=== PATIENT | male | born 1980 | race Caucasian/White ===

== ENCOUNTER 2020-10-06 09:26 | Emergency (ER) | payer MEDICAID, SELFPAY ==
--- NOTE | ~2020-10-06 | XR_ITS ---
EXAMINATION: XR CHEST CLINICAL INFORMATION: Seizure with SOB. COMPARISON: None TECHNIQUE: Frontal view of the chest was obtained. FINDINGS: The lungs are well-expanded and clear. The heart size and pulmonary vascularity is normal. No gross bony abnormality seen. XR/XR chest 1V IMPRESSION: Unremarkable chest exam.
--- NOTE | ~2020-10-06 | CT_ITS ---
EXAMINATION: CT HEAD W/O IV CONTRAST CT CERVICAL SPINE W/O IV CONTRAST CLINICAL INFORMATION: 40-year-old male with seizure. COMPARISON: Head CT from 09/08/2009 TECHNIQUE: Head - Contiguous axial imaging of the head was performed from the skull base to the vertex without the administration of intravenous contrast, and axial images are reconstructed at 0.625 mm, 2.5 mm and 5 mm slice thickness. Cervical spine - A volumetric, helical CT acquisition of the cervical spine was obtained without contrast; in addition to the standard set of axial images, multiplanar reformatted images were provided in the coronal and sagittal imaging planes. This CT examination was performed using dose optimization techniques as appropriate, variously including the following: *Automated exposure control *Adjustment of mA and/or kV according to patient size (this includes techniques or standardized protocols for targeted exams where dose is matched to indication/reason for exam; i.e. extremities or head) *Use of iterative reconstruction technique DLP: 1446 mGy-cm (total) FINDINGS: HEAD: The brain parenchyma has normal attenuation. No evidence of intracranial hemorrhage, major vascular territory infarction, focal mass effect or midline shift. Luke to white matter differentiation is preserved. The ventricles have normal size and configuration. 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 The ventricles have normal size and configuration. No hydrocephalus. The calvarium is intact. Mastoid air cells and middle ear cavities are well aerated. No air-fluid levels within paranasal sinuses. Secretions within some of the ethmoid air cells. Also, mild mucosal thickening of the inferior right maxillary sinus. The orbits, globes and temporomandibular joints are unremarkable. CERVICAL SPINE: No acute abnormalities. The craniocervical junction is normal. The occipital condyles, dens and atlantodental articulation are intact. The vertebral body heights and alignment are maintained. No acute fractures in the anterior or posterior elements. No prevertebral soft tissue swelling. There is a congenital or remote traumatic defect in the right sided C2 spinous process. The disc spaces are preserved. Mild left-sided facet hypertrophy at C2-C3 and C3-C4. No evidence of stenosis of the central spinal canal or neural foramina. No spinal hematoma or focal fluid collection in the visualized neck. The examined lung apices are clear. Thyroid gland is normal. CT/CT cervical spine wo con IMPRESSION: * No mass, hemorrhage or other acute intracranial pathology. * No fracture or malalignment in the cervical spine.
[2020-10-06 09:33] VITALS: BP 133/71; BP 146/90; PULSE 76; PULSE 82; RESP 18; TEMP 37.1; O2SAT 97; BMI 34.4
--- NOTE | 2020-10-06 10:05 | ECG_ITS ---
Test Reason : AMS Blood Pressure : / mmHG Vent. Rate : 071 BPM Atrial Rate : 071 BPM P-R Int : 190 ms QRS Dur : 098 ms QT Int : 382 ms P-R-T Axes : 020 007 026 degrees QTc Int : 415 ms Normal sinus rhythm Normal ECG When compared with ECG of 11-JUN-2011 10:03, TX interval has decreased Referred By: Majo Esparza Electronically Signed By:BLAS CARPIO
[2020-10-06 11:42] LABS: MANUAL DIFF FLAG NO
[2020-10-06 11:48] LABS: Basophils Percent Auto 0.2 % (0-2); Eosinophils Absolute Auto 0.1 X10*3/uL (0.0-0.4); Eosinophils Percent Auto 0.8 % (0-4); Hematocrit 40.6 % (42-52); Hemoglobin 13.3 g/dl (14.0-18.0); Imm Gran Abs Auto 0.02 X10*3/uL (0.00-0.03); Imm Gran Pct Auto 0.3 % (0.0-0.4); Lymphocytes Absolute Auto 0.9 X10*3/uL (1.2-4.9); Lymphocytes Percent Auto 13.7 % (20-40); Mean Corpuscular HGB Conc 32.8 g/dl (31.0-36.0); Mean Corpuscular Hemoglobin 30.2 pg (27.0-33.0); Mean Corpuscular Volume 92.1 fL (80-98); Mean Platelet Volume 10.1 fL (9.4-12.4); Monocytes Absolute Auto 0.4 X10*3/uL (0.1-1.2); Monocytes Percent Auto 5.6 % (2-11); Neutrophils Percent Auto 79.4 % (45-73); Platelet Count 223 X10*3/uL (160-400); Red Blood Count 4.41 X10*6/uL (4.60-5.80); Red Cell Distribution Width 13.1 % (11.0-16.0); White Blood Count 6.3 X10*3/uL (4.8-10.8)
--- NOTE | 2020-10-06 11:55 | ED.SEIZURE ---
HPI - Seizure General Chief Complaint: Seizure Stated Complaint: ? SZ,GIVEN 2MG ATIVAN, THEN AMS Time Seen by Provider: 10/06/20 09:43 Source: patient, EMS and RN notes reviewed ([facility] Staff) Mode of arrival: EMS Limitations: no limitations History of Present Illness HPI Narrative: 40-year-old male with a past medical history of COPD, alcohol dependence, bipolar disorder and epileptic seizures currently on Keppra 2000 mg b.i.d., magnesium oxide 400 mg daily, Lamictal 300 mg b.i.d. and phenytoin 200 mg b.i.d. who is currently at [facility] due to SI attempt with plan to cut his right wrist presenting to the ED via EMS after he had 2 witnessed seizures 1 at [facility] and then another via EMS. He reports the 1 that occurred at [facility] he was sitting in the chair and he does not believe he fell and hit his head. EMS reports staff at [facility] gave 2 mg of Ativan p.o. and attempt to avoid the seizure although 50 minutes later patient had a seizure. At that point he received another 2 mg of IM Ativan and then was sent here for further evaluation and treatment. Vital signs are stable within normal limits although EMS placed him on capnography with reading of 42. Patient reports he is taking all his medications including his for seizure medications as prescribed. Patient denies any headaches, dizziness, confusion, changes in vision, nausea/vomiting, cough, sore throat, chest pain, shortness of breath, palpitations, abdominal pain, diarrhea, dysuria, hematuria, any weakness, SI/HI/auditory visual hallucinations or thoughts of self injury at this time. MD complaint: seizure Onset (ago): minute(s) (Prior to arrival) Description of Episode: loss of consciousness and tonic-clonic movement -: second(s) Witnessed: Yes - by Other ([facility] staff) Trauma: No Seizure History: Yes Place: [facility] inpatient psych/detox Possible Precipitating Event: stress (From being inpatient psych for SI) Associated symptoms: denies other symptoms Treatments prior to arrival: benzodiazepines (4 mg total of Ativan) Related Data Allergies Allergy/AdvReac Type Severity Reaction Status Date / Time erythromycin base Allergy Unknown UNKNOWN Unverified 11/23/19 14:39 [Erythromycin Base] Review of Systems Review of Systems: Constitutional : No Fever, No Chills, No Night Sweats, No Fatigue, No Malaise ENT/Mouth : No Ear Pain, No Nasal Congestion, No Sinus Pain, No sore throat, No Rhinorrhea Eyes: No Eye Pain, No Swelling, No Redness, No Foreign Body, No Discharge, No Vision Changes Cardiovascular : No Chest Pain, No SOB, No Dyspnea on Exertion, No Orthopnea, No Palpitations Respiratory : No Cough, No Sputum, No Wheezing, No Dyspnea Gastrointestinal : No Nausea, No Vomiting, No Diarrhea, No Constipation, No abdominal Pain, No Hematochezia, No Melena Genitourinary : No Dysuria, No Urinary Frequency, No Urinary Incontinence, No Urgency, No Flank Pain Musculoskeletal : No joint pain, No Myalgias Skin : No lacerations Neuro : Positive seizure, positive loss of consciousness, No Focal weakness, no general weakness, No Numbness, No Paresthesias, No Dizziness, No Headache Yes all other systems are reviewed and are negative [facility] Past Medical History Attestation statement: The following information was validated with the patient. Social History Social History Patient Tobacco Use Status: Current everyday Tobacco user Use of substances other than those prescribed or required for medical reasons: No Advance Directives: No Advance Directives Information Provided: No Suicidal Behavior: History of suicide attemps Current/Past Psychiatric Disorders: Chronic mental illess Access to Firearms: No Risk Factors Comment: Pt is an inpatient at [email or web address] for medical purposes r/t seizures. Physical Exam Vital Signs: Vital Signs: Last Vital Signs Temp 98.8 F 10/06/20 09:33 Pulse 69 10/06/20 12:50 Resp 18 10/06/20 12:50 BP 143/77 H 10/06/20 12:50 Pulse Ox 99 10/06/20 12:50 Body Mass Index 34.4 Vital signs have been reviewed as normal and appeared to be correct. Blood pressure normal. Heart rate normal. Respiration rate normal. Temperature normal. Oxygen saturation normal. Appearance: Alert. Oriented X3. No acute distress. Head: Normal external exam. Normocephalic. Atraumatic. Able to rotate head bilaterally. Eyes: PERRLA. EOMI. No nystagmus noted. Conjunctiva and sclera normal. Eyelids normal. Corneal reflex normal. ENT: EAC normal. TM's Normal. Hearing normal. Pharynx normal. Uvula midline. tongue midline. Moist mucous membranes. No trismus noted. No drooling noted. No muffled voice noted. No nystagmus noted. Neck: Normal inspection. Neck supple. FROM. No adenopathy. Trachea midline. Thyroid Normal. No meningeal signs. No neck mass noted. CVS: Normal heart rate and rhythm. Heart sound normal. No murmurs noted. Pulses normal throughout. Respiratory: No respiratory distress. Painless inspiration. Breath sounds normal. No wheezes/rales/rhonchi noted. Chest nontender. No accessory muscle usage noted or decreased air movement noted. Abdomen: Soft and nontender. Bowel sounds normal in all 4 quadrants. No distention noted. No organomegaly noted. No visible injury noted. Back: Full range of motion noted. Skin: Skin warm and dry. Normal skin color. Normal skin turgor. No rashes/lesions/lacerations noted. Extremities: No lower extremity edema. Extremities exhibit normal range of motion. Extremities nontender. Able to shrug shoulders bilaterally and keep up against resistance. Neuro: Oriented X 3. No motor deficit. No sensory deficit. Reflexes normal. Moving all extremities. No focal motor deficits. Cranial nerves II-XI intact bilaterally. Facial strength normal. Normal cognition. Speech normal. Strength 5/5 throughout. No pronator drift. No tremor noted. No fasciculations noted. No rigidity noted. Muscle tone normal throughout. No asterixis noted. Ttgqyq-eg-[id number] test normal. Heel to warren test normal. Hand drop from overhead Misses face. Course Course Course Narrative: 11:30am - 40-year-old male with a past medical history of COPD, alcohol dependence, bipolar disorder and epileptic seizures currently on Keppra 2000 mg b.i.d., magnesium oxide 400 mg daily, Lamictal 300 mg b.i.d. and phenytoin 200 mg b.i.d. who is currently at [facility] due to SI attempt with plan to cut his right wrist presenting to the ED via EMS after he had 2 witnessed seizures 1 at [facility] and then another via EMS. He reports the 1 that occurred at [facility] he was sitting in the chair and he does not believe he fell and hit his head. EMS reports staff at [facility] gave 2 mg of Ativan p.o. and attempt to avoid the seizure although 50 minutes later patient had a seizure. At that point he received another 2 mg of IM Ativan and then was sent here for further evaluation and treatment. - On exam patient is alert and oriented x3. Not in any acute distress. No signs of trauma. No focal neural deficits are noted. CV RRR. Lungs CTA. Abdomen is soft nontender. Plan: Labs including Keppra/Phenytoin/Lamictal and magnesium level, COVID/RSV/flu, CXR, CT scan of brain and cervical spine, placed the patient on seizure precautions give him a loading dose of Keppra of a 1000 mg IV and re-evaluate. Reevaluation(s) Reevaluation #1: - labs reviewed and patient with mild anemia. Carbon dioxide 31. Anion gap 10. BNP 128. Phenytoin 10.4. ETOH level negative. Lamictal and Keppra level still pending. Patient negative for COVID/RSV/flu. Chest x-ray of brain and cervical spine all within normal limits no acute processes are noted. - I consulted with Neurology and he reported that due to the phenytoin and on the lower side that he would also give a loading dose of 300 mg IV and he would not change the patient's Lamictal or Keppra levels he was sent back to the [facility] where he came from. Therefore explained to the patient and he understands agrees with this plan. I also spoke to the psychiatrist and he understands and agrees with this plan. Time: 14:19 [facility] - Seizure Medical Records Attestation: I reviewed the patient's medical records. Lab Data Attestation: I reviewed the patient's lab results. Result diagrams: 10/06/20 11:33 10/06/20 11:33 Labs: Lab Results 10/06/20 10/06/20 10/06/20 Range/Units 11:33 11:33 11:33 WBC 6.3 (4.8-10.8) X10*3/uL RBC 4.41 L (4.60-5.80) X10*6/uL Hgb 13.3 L (14.0-18.0) g/dl Hct 40.6 L (42-52) % MCV 92.1 (80-98) fL MCH 30.2 (27.0-33.0) pg MCHC 32.8 (31.0-36.0) g/dl RDW 13.1 (11.0-16.0) % Plt Count 223 (160-400) X10*3/uL MPV 10.1 (9.4-12.4) fL Immature Gran % (Auto) 0.3 (0.0-0.4) % Neut % (Auto) 79.4 H (45-73) % Lymph % (Auto) 13.7 L (20-40) % [place] % (Auto) 5.6 (2-11) % Eos % (Auto) 0.8 (0-4) % Baso % (Auto) 0.2 (0-2) % Lymph # (Auto) 0.9 L (1.2-4.9) X10*3/uL [place] # (Auto) 0.4 (0.1-1.2) X10*3/uL Eos # (Auto) 0.1 (0.0-0.4) X10*3/uL Baso # (Auto) 0.0 (0.0-0.2) X10*3/uL Abs Immat Gran (auto) 0.02 (0.00-0.03) X10*3/uL Absolute Neuts (auto) 5.0 (2.0-8.3) X10*3/uL Absolute Nucleated RBC 0.000 (0.0-0.012) X10*3/uL Nucleated RBC % (auto) 0.0 (0.0-0.2) /100WBC Sodium 140 (135-145) mmol/L Potassium 4.8 (3.3-5.1) mmol/L Chloride 104 (96-108) mmol/L Carbon Dioxide 31 H (22-29) mmol/L Anion Gap 10 L (12-20) BUN 15 (9-16) mg/dL Creatinine 0.78 (0.5-1.4) mg/dL Estim Creat Clear Calc 157.1 Estimated GFR > 60 Random Glucose 83 (60-115) mg/dL Calcium 9.1 (8.4-10.2) mg/dL Magnesium 2.1 (1.6-2.6) mg/dL Total Bilirubin 0.3 (0.0-1.0) mg/dL AST 17 (5-37) U/L ALT 19 (0-40) U/L Alkaline Phosphatase 106 (39-117) U/L Total Creatine Kinase 127 (38-174) U/L B-Natriuretic Peptide (<100) pg/mL Total Protein 6.7 (6.5-8.0) g/dL Albumin 3.7 (3.5-5.0) g/dL Phenytoin 10.4 (10.0-20.0) ug/mL Ethyl Alcohol mg/dL Coronavirus (PCR) (Negative) Influenza Type A (PCR) (Negative) Influenza Type B (PCR) (Negative) RSV RNA Qual (PCR) (Negative) 10/06/20 10/06/20 10/06/20 Range/Units 11:33 11:33 11:33 WBC (4.8-10.8) X10*3/uL RBC (4.60-5.80) X10*6/uL Hgb (14.0-18.0) g/dl Hct (42-52) % MCV (80-98) fL MCH (27.0-33.0) pg MCHC (31.0-36.0) g/dl RDW (11.0-16.0) % Plt Count (160-400) X10*3/uL MPV (9.4-12.4) fL Immature Gran % (Auto) (0.0-0.4) % Neut % (Auto) (45-73) % Lymph % (Auto) (20-40) % [place] % (Auto) (2-11) % Eos % (Auto) (0-4) % Baso % (Auto) (0-2) % Lymph # (Auto) (1.2-4.9) X10*3/uL [place] # (Auto) (0.1-1.2) X10*3/uL Eos # (Auto) (0.0-0.4) X10*3/uL Baso # (Auto) (0.0-0.2) X10*3/uL Abs Immat Gran (auto) (0.00-0.03) X10*3/uL Absolute Neuts (auto) (2.0-8.3) X10*3/uL Absolute Nucleated RBC (0.0-0.012) X10*3/uL Nucleated RBC % (auto) (0.0-0.2) /100WBC Sodium (135-145) mmol/L Potassium (3.3-5.1) mmol/L Chloride (96-108) mmol/L Carbon Dioxide (22-29) mmol/L Anion Gap (12-20) BUN (9-16) mg/dL Creatinine (0.5-1.4) mg/dL Estim Creat Clear Calc Estimated GFR Random Glucose (60-115) mg/dL Calcium (8.4-10.2) mg/dL Magnesium (1.6-2.6) mg/dL Total Bilirubin (0.0-1.0) mg/dL AST (5-37) U/L ALT (0-40) U/L Alkaline Phosphatase (39-117) U/L Total Creatine Kinase (38-174) U/L B-Natriuretic Peptide 128 H (<100) pg/mL Total Protein (6.5-8.0) g/dL Albumin (3.5-5.0) g/dL Phenytoin (10.0-20.0) ug/mL Ethyl Alcohol < 10 mg/dL Coronavirus (PCR) NEGATIVE (Negative) Influenza Type A (PCR) NEGATIVE (Negative) Influenza Type B (PCR) NEGATIVE (Negative) RSV RNA Qual (PCR) NEGATIVE (Negative) ECG Data Attestation: I personally reviewed and interpreted this ECG as follows: ECG interpretation date: 10/06/20 ECG interpretation time: 10:42 Interpretation: Normal sinus rhythm and a ventricular rate of 71 with a normal DC interval normal QRS duration normal QT/QTC interval. No acute ischemic changes are noted. No prior EKGs in our system to compare to at this time. Critical Care Time Critical Care Time Critical Care Time: Yes Total Critical Care Time: 60 Attestation: I personally attest to this time spent taking care of the patient Discharge Plan Discharge Clinical Impression: Epileptic seizure Patient Disposition: Home, Self-Care Instructions: Epilepsy (ED) Referrals: Elyssa Jackson MD [Physician] - 2 days [place],[facility] [Primary Care Provider] - 2 days Print Language: Mosotho
[2020-10-06 12:06] LABS: Ethanol < 10 mg/dL
[2020-10-06 12:10] LABS: Alanine Aminotransferase 19 U/L (0-40); Albumin Level 3.7 g/dL (3.5-5.0); Alkaline Phosphatase 106 U/L (39-117); Anion Gap 10 (12-20); Aspartate Amino Transferase 17 U/L (5-37); Bilirubin Total 0.3 mg/dL (0.0-1.0); Blood Urea Nitrogen 15 mg/dL (9-16); Calcium 9.1 mg/dL (8.4-10.2); Carbon Dioxide 31 mmol/L (22-29); Chloride 104 mmol/L (96-108); Creatinine Clr Calc Pharmacy 157.1; Estimated Glomerular Filt Rate > 60; Glucose Random 83 mg/dL (60-115); Magnesium 2.1 mg/dL (1.6-2.6); Potassium 4.8 mmol/L (3.3-5.1); Sodium 140 mmol/L (135-145); Total Protein 6.7 g/dL (6.5-8.0)
[2020-10-06 12:11] LABS: B Type Natriuretic Peptide 128 pg/mL (<100)
[2020-10-06 12:13] LABS: Phenytoin Dilantin 10.4 ug/mL (10.0-20.0)
[2020-10-06] MEDS: Ibuprofen 800 MG TABLET PO (12:21)
--- NOTE | 2020-10-06 12:25 | PC.NURSE ---
Pt alert and oriented x3. No further seizure like activity. Pt brought to CT.
[2020-10-06 12:47] LABS: Influenza A PCR NEGATIVE (Negative); Influenza B PCR NEGATIVE (Negative); Resp Syncy Virus RNA Qual PCR NEGATIVE (Negative); SARS COV2 PCR INHOUSE NEGATIVE (Negative)
[2020-10-06 12:50] VITALS: BP 143/77; PULSE 69; RESP 18; O2SAT 99
[2020-10-06] MEDS: levETIRAcetam in NaCl (iso-os) 1,000 MG/100 ML PIGGYBACK 400 MG IV (12:51)
[2020-10-06 14:49] VITALS: BP 118/65; PULSE 70; RESP 12; O2SAT 99
[2020-10-06] MEDS: Phenytoin Sodium 100 MG/2 ML VIAL 300 MG IVPUSH (14:49)
[2020-10-06] MEDS: 0.9 % Sodium Chloride 1,000 ML 999 ML IVCONT (14:49)
--- NOTE | 2020-10-06 14:50 | PC.NURSE ---
Dilantin given over 1hr in 50ml of NS. This was the recommendation per Edin in pharmacy.
--- NOTE | 2020-10-06 16:24 | PC.NURSE ---
Report given to nurse at [facility]
[2020-10-09 21:06] LABS: Lamotrigine Lamictal 3.4 mcg/mL (4.0-18.0)
[2020-10-10 12:27] LABS: Levetiracetam Keppra 34.5 mcg/mL (12.0-46.0)
== END 2020-10-06 16:24 | disposition home or self-care (01) ==
PROVIDERS: Physician Assistant Medical; Emergency Provider Student in an Organized Health Care Education/Training Program
DX: G40.909 Epilepsy, unspecified, not intractable, without status epilepticus (principal); F43.9 Reaction to severe stress, unspecified; F17.200 Nicotine dependence, unspecified, uncomplicated; Z71.6 Tobacco abuse counseling; Z20.822 Contact with and (suspected) exposure to COVID-19; Z91.5 Personal history of self-harm; Z79.899 Other long term (current) drug therapy
CPT/HCPCS: 0241U; 36415; 70450; 71045; 72125; 80053; 80175; 80177; 80185; 82077; 82550; 83735; 83880; 85025; 93005; 99285; 99291; J1953

== ENCOUNTER 2020-10-07 08:49 | Emergency (ER) | payer MEDICAID, SELFPAY ==
--- NOTE | 2020-10-07 | ECG_ITS ---
Test Reason : SEIZURE Blood Pressure : / mmHG Vent. Rate : 057 BPM Atrial Rate : 057 BPM P-R Int : 230 ms QRS Dur : 104 ms QT Int : 420 ms P-R-T Axes : 023 007 026 degrees QTc Int : 408 ms Sinus bradycardia with 1st degree A-V block Otherwise normal ECG When compared with ECG of 06-OCT-2020 10:42, PA interval has increased Referred By: Generic ED Physician Electronically Signed By:Rob Trevino
[2020-10-07 08:51] VITALS: BP 149/78; PULSE 64; RESP 16; O2SAT 99; BMI 32.3
[2020-10-07 09:40] LABS: MANUAL DIFF FLAG NO
[2020-10-07 09:41] LABS: Basophils Percent Auto 0.4 % (0-2); Eosinophils Absolute Auto 0.1 X10*3/uL (0.0-0.4); Eosinophils Percent Auto 2.1 % (0-4); Hematocrit 39.4 % (42-52); Imm Gran Abs Auto 0.01 X10*3/uL (0.00-0.03); Imm Gran Pct Auto 0.2 % (0.0-0.4); Lymphocytes Absolute Auto 1.2 X10*3/uL (1.2-4.9); Lymphocytes Percent Auto 25.3 % (20-40); Mean Corpuscular Hemoglobin 30.7 pg (27.0-33.0); Mean Corpuscular Volume 93.1 fL (80-98); Mean Platelet Volume 10.1 fL (9.4-12.4); Monocytes Absolute Auto 0.4 X10*3/uL (0.1-1.2); Monocytes Percent Auto 8.1 % (2-11); Neutrophils Absolute Auto 3.1 X10*3/uL (2.0-8.3); Neutrophils Percent Auto 63.9 % (45-73); Platelet Count 195 X10*3/uL (160-400); Red Blood Count 4.23 X10*6/uL (4.60-5.80); Red Cell Distribution Width 13.3 % (11.0-16.0); White Blood Count 4.8 X10*3/uL (4.8-10.8)
--- NOTE | 2020-10-07 09:54 | ED.SEIZURE ---
HPI - Seizure General Chief Complaint: Seizure Stated Complaint: ? SEIZURE Time Seen by Provider: 10/07/20 09:17 Source: EMS Mode of arrival: EMS Limitations: no limitations History of Present Illness HPI Narrative: 40-year-old male with a past medical history of COPD, alcohol dependence, bipolar disorder and epileptic seizures currently on Keppra 2000 mg b.i.d., Lamictal 300 mg b.i.d. and phenytoin 200 mg b.i.d. who is currently at [facility] due to SI attempt with plan to cut his right wrist presenting to the ED via EMS after witnessed seizure. Per EMS the patient had a seizure at 07:55 this morning. He received 4 mg of Ativan p.o. and was transported to [facility] via EMS. Per patient he was seen here yesterday after having 2 witnessed seizures. He received loading doses of phenytoin and Keppra and was transferred back to [facility]. Patient tells me that yesterday he received his seizure medications 3 hours late and today he received his medications 2 hours late. He tells me that he does have quite frequent seizures and when he is late for his medications he does have breakthrough seizures. Today however he was standing in line waiting for his medication when his right knee gave out. He tells me that he has bad arthritis in his knee and needs a knee replacement at some point. Often times it does give out on him and feels unstable. He then lowered himself to the ground. He does not believe that he had a seizure. Per EMS report patient was witnessed to have a seizure. He tells me he feels well. He has no complaints. He says normally after seizure he feels weak and has a headache and feels achy but he does not have any of the symptoms. He denies any incontinence or tongue bite. Seizure History: Yes Related Data Allergies Allergy/AdvReac Type Severity Reaction Status Date / Time erythromycin base Allergy Unknown UNKNOWN Unverified 11/23/19 14:39 [Erythromycin Base] Review of Systems Review of Systems: Yes all other systems are reviewed and are negative Constitutional: Constitutional: Reports no additional constitutional complaints, Denies body ache(s), Denies chills, Denies fever(s), Denies headache(s) and Denies weakness Eyes: Eyes: Reports no additional eye complaints and Denies change in vision ENT: Reports system reviewed and no additional complaints, except as documented, Denies dizziness, Denies headache(s), Denies nasal congestion, Denies nasal discharge and Denies neck pain Cardiovascular: Cardiovascular: Reports no additional cardiovascular complaints, Denies chest pain, Denies leg edema and Denies dyspnea Respiratory: Respiratory: Reports no additional respiratory complaints, Denies cough and Denies dyspnea Gastrointestinal: Gastrointestinal: Reports no additional gastrointestinal complaints, Denies abdominal pain, Denies diarrhea, Denies nausea and Denies vomiting Genitourinary: Genitourinary: Denies urinary incontinence Musculoskeletal: Musculoskeletal: Reports no additional musculoskeletal complaints, Denies back pain, Denies arthralgias, Denies joint swelling, Denies neck pain, Denies numbness and Denies tingling Integumentary/Breasts: Skin/Breast: Reports system reviewed and no additional complaints, except as docu and Denies rash Neurologic: Reports system reviewed and no additional complaints, except as documented, Denies Abnormal speech present, Denies dizziness, Denies headache(s), Denies numbness, Reports seizure-like activity, Denies tingling and Denies weakness [facility] Past Medical History Attestation statement: The following information was validated with the patient. Source: old records reviewed and nursing notes reviewed Social History Social History Patient Tobacco Use Status: Current everyday Tobacco user Advance Directives: No Advance Directives Information Provided: No Physical Exam Vital Signs: Vital Signs: Last Vital Signs Pulse 64 10/07/20 11:06 Resp 18 10/07/20 11:06 BP 149/78 H 10/07/20 08:51 Pulse Ox 99 10/07/20 11:06 Body Mass Index 32.3 Const: General: cooperative, healthy appearing, comfortable and no acute distress Orientation/consciousness: patient oriented x3 Limitations: no limitations HENMT: Head: Yes normal to inspection Ears: hearing grossly normal bilaterally and TM's normal bilaterally General nose exam: Normal external nose present Face and sinus: Yes normal facial exam Mouth: Normal oral and palatal mucosa present Throat: Yes posterior oropharynx normal, Yes tonsils normal and Yes uvula midline Eyes: General: appearance normal, both eyes and all related structures Pupils: Equal, round and reactive pupils present Neck: Neck: Yes normal visual inspection, Yes full ROM and Yes no lymphadenopathy Chest: Chest palpation & inspection: normal inspection of the chest Resp: Effort & Inspection: normal respiratory effort Auscultation: clear to auscultation bilaterally Cardio: Rate: regular rate Rhythm: regular rhythm Peripheral pulses: Peripheral pulses 2+ throughout GI: Inspection: Yes normal to inspection Palpation (GI): Soft to palpation and nontender Auscultation: normal bowel sounds Back/Spine/Pelvis: Thoracic/Lumbar Spine: thoracic and lumbar spine normal to inspection Skin: General skin exam: no rashes or lesions noted Neuro: General: patient oriented x3, no focal motor deficits and normal sensation to monofilament Cranial nerves: Yes CN's II-XII intact bilaterally, Yes Equal, round and reactive pupils present, Yes Bilaterally intact EOM present, Yes Nystagmus not present, Yes Normal facial strength present and Yes Midline tongue present Cognition (Neuro): normal cognition Speech: No Abnormal speech present Gait exam (Neuro): Normal gait present Motor exam (neuro): 5/5 motor strength present throughout Sensory Exam: Normal double simultaneous stimulation for sensation Deep tendon reflexes (DTR's): Right patellar reflex intensity grade: 2+ and Left patellar reflex intensity grade: 2+ Extrem: General: Yes normal to inspection Course Course Course Narrative: 40 yo Male with unknown past medical history of seizures currently on Keppra, Lamictal and funny tone in here after a witnessed seizure at an inpatient psychiatric unit. Per patient it is unclear if he did have a seizure so I spoke to nursing (marry). She tells me the patient was walking to the kitchen when his right knee gave out and he had an assist with staff down to the ground. He then had several focal jerking movements of his upper extremities 7 total. He has had no tonic-clonic activity. He was alert and talking the entire time. He received 4 mg of PO Ativan. He did receive his morning doses of Lamictal, Dilantin and Keppra this morning. On arrival the patient is alert and oriented. No neurological deficits. No concern for acute trauma. Vital signs are stable. Patient had labs during his ED visit yesterday. His dilantin level was normal. His Keppra and Lamictal levels are still pending. He did receive a loading doses of Keppra and Dilantin yesterday. Plan for labs, seizure precaution. 1100-labs show mild anemia unchanged from yesterday. Dilantin level today 13.4 which is improved from yesterday 10.4. Lamictal and Keppra level still pending from yesterday. Lactic acid is negative so less likely tonic colonic seizure. Will discuss with Neurology to evaluate for further input prior to dispo back to [facility] today. 1130-Spoke to Dr Jackson. Unclear if actual seizure activity today with normal lactic acid. Seizures likely multifactorial. No medication changes recommended. Spoke to nursing at [facility] with plan to return there. 1135-Spoke to Dr Gracia at [facility] (covering psychiatrist). Agreeable with return of patient. MDM - Seizure Differential Diagnosis Differential diagnosis: Likely epileptic seizure Medical Records Attestation: I reviewed the patient's medical records. Lab Data Attestation: I reviewed the patient's lab results. Result diagrams: 10/07/20 09:35 10/07/20 09:35 Labs: Lab Results 10/07/20 10/07/20 10/07/20 Range/Units 09:35 09:35 09:35 WBC 4.8 (4.8-10.8) X10*3/uL RBC 4.23 L (4.60-5.80) X10*6/uL Hgb 13.0 L (14.0-18.0) g/dl Hct 39.4 L (42-52) % MCV 93.1 (80-98) fL MCH 30.7 (27.0-33.0) pg MCHC 33.0 (31.0-36.0) g/dl RDW 13.3 (11.0-16.0) % Plt Count 195 (160-400) X10*3/uL MPV 10.1 (9.4-12.4) fL Immature Gran % (Auto) 0.2 (0.0-0.4) % Neut % (Auto) 63.9 (45-73) % Lymph % (Auto) 25.3 (20-40) % [place] % (Auto) 8.1 (2-11) % Eos % (Auto) 2.1 (0-4) % Baso % (Auto) 0.4 (0-2) % Lymph # (Auto) 1.2 (1.2-4.9) X10*3/uL [place] # (Auto) 0.4 (0.1-1.2) X10*3/uL Eos # (Auto) 0.1 (0.0-0.4) X10*3/uL Baso # (Auto) 0.0 (0.0-0.2) X10*3/uL Abs Immat Gran (auto) 0.01 (0.00-0.03) X10*3/uL Absolute Neuts (auto) 3.1 (2.0-8.3) X10*3/uL Absolute Nucleated RBC 0.000 (0.0-0.012) X10*3/uL Nucleated RBC % (auto) 0.0 (0.0-0.2) /100WBC Sodium 140 (135-145) mmol/L Potassium 4.4 (3.3-5.1) mmol/L Chloride 105 (96-108) mmol/L Carbon Dioxide 30 H (22-29) mmol/L Anion Gap 9 L (12-20) BUN 16 (9-16) mg/dL Creatinine 0.74 (0.5-1.4) mg/dL Estim Creat Clear Calc 160.4 Estimated GFR > 60 Random Glucose 81 (60-115) mg/dL Lactic Acid 1.2 (0.5-2.0) mmol/L Calcium 8.8 (8.4-10.2) mg/dL Total Bilirubin 0.3 (0.0-1.0) mg/dL Direct Bilirubin 0.2 (0.0-0.5) mg/dL AST 18 (5-37) U/L ALT 16 (0-40) U/L Alkaline Phosphatase 102 (39-117) U/L Total Protein 6.5 (6.5-8.0) g/dL Albumin 3.6 (3.5-5.0) g/dL Phenytoin 13.4 (10.0-20.0) ug/mL ECG Data Attestation: I personally reviewed and interpreted this ECG as follows: ECG interpretation date: 10/07/20 ECG interpretation time: 09:04 Interpretation: Sinus bradycardia with first-degree AV block, normal WA, normal QRS, no QT Discharge Plan Discharge Clinical Impression: Epilepsy Patient Disposition: Xfer Psychiatric Hosp Instructions: Epilepsy (ED) Interventions: Acute Care Transfer Worksheet (ED) Last Done: 10/07/20 12:45
[2020-10-07 10:02] LABS: Lactic Acid 1.2 mmol/L (0.5-2.0)
[2020-10-07 10:14] LABS: Alanine Aminotransferase 16 U/L (0-40); Albumin Level 3.6 g/dL (3.5-5.0); Alkaline Phosphatase 102 U/L (39-117); Anion Gap 9 (12-20); Aspartate Amino Transferase 18 U/L (5-37); Bilirubin Direct 0.2 mg/dL (0.0-0.5); Bilirubin Total 0.3 mg/dL (0.0-1.0); Blood Urea Nitrogen 16 mg/dL (9-16); Calcium 8.8 mg/dL (8.4-10.2); Carbon Dioxide 30 mmol/L (22-29); Chloride 105 mmol/L (96-108); Creatinine Clr Calc Pharmacy 160.4; Estimated Glomerular Filt Rate > 60; Glucose Random 81 mg/dL (60-115); Potassium 4.4 mmol/L (3.3-5.1); Sodium 140 mmol/L (135-145); Total Protein 6.5 g/dL (6.5-8.0)
[2020-10-07 10:54] LABS: Phenytoin Dilantin 13.4 ug/mL (10.0-20.0)
[2020-10-07 11:06] VITALS: PULSE 64; RESP 18; O2SAT 99
--- NOTE | 2020-10-07 12:09 | PC.NURSE ---
attempted to call report, RN will call back
[2020-10-07] MEDS: Ibuprofen 600 MG TABLET PO (13:06)
== END 2020-10-07 13:08 ==
PROVIDERS: Nurse Practitioner Family; Emergency Provider Emergency Medicine
DX: G40.909 Epilepsy, unspecified, not intractable, without status epilepticus (principal); F10.20 Alcohol dependence, uncomplicated; F31.9 Bipolar disorder, unspecified; Z79.899 Other long term (current) drug therapy
CPT/HCPCS: 36415; 80048; 80076; 80185; 83605; 85025; 93005; 99285

== ENCOUNTER 2020-10-11 07:17 | Emergency (ER) | payer MEDICAID, SELFPAY ==
[2020-10-11 07:30] VITALS: BP 141/72; PULSE 70; RESP 16; TEMP 36.9; O2SAT 96; BMI 24.0
[2020-10-11 08:52] LABS: MANUAL DIFF FLAG NO
--- NOTE | 2020-10-11 08:53 | ED_ITS ---
HPI - Seizure General Chief Complaint: Seizure Stated Complaint: seizure Time Seen by Provider: 10/11/20 08:07 Source: patient and EMS Mode of arrival: EMS Limitations: no limitations History of Present Illness HPI Narrative: 40 y/o male with history of epilepsy, bipolar disorder, alcohol abuse and dependence now sober x2 weeks, depression with SI who presents to the ER [facility] (inpatient psych unit) with a witnessed seizure. This is his 3rd visit to the ER this week for witnessed seizures. He is on Keppra 2g BID, lamotrigine 150 mg BID, & dilantin 200 BID for seizures as well as clonazapam for anxiety. His medications have been administered to him and he has been compliant with them. He had a therapeutic dilantin level and keppra level on 10/06. EMS reports seizure was about 2 minutes in duration and he was given 2mg IM ativan. He woke up confused and tired. No reports of trauma or incontinence. MD complaint: seizure Onset (ago): hour(s) Description of Episode: tonic-clonic movement and post-event confusion Witnessed: Yes - by Other Trauma: No Seizure History: Yes Place: [facility] (psych) Possible Precipitating Event: none Associated symptoms: confusion Treatments prior to arrival: benzodiazepines Related Data Home Medications Medication Instructions Recorded Confirmed clonazepam 1 mg tablet 1 mg PO DAILY 10/11/20 10/11/20 clonazepam 1 mg tablet 2 mg PO BEDTIME 10/11/20 10/11/20 ipratropium 20 mcg-albuterol 100 1 puff INHALATION QID PRN 10/11/20 10/11/20 mcg/actuation mist for inhalation (Combivent Respimat) lamotrigine 150 mg tablet 2 tab PO BID 10/11/20 10/11/20 levetiracetam 500 mg tablet 4 tab PO BID 10/11/20 10/11/20 magnesium oxide 400 mg PO BID 10/11/20 10/11/20 phenytoin sodium extended 100 mg 2 cap PO BID 10/11/20 10/11/20 capsule Allergies Allergy/AdvReac Type Severity Reaction Status Date / Time erythromycin base Allergy Unknown UNKNOWN Unverified 11/23/19 14:39 [Erythromycin Base] Review of Systems Constitutional: Constitutional: Denies chills, Denies fatigue, Denies fever(s) and Reports headache(s) Eyes: Eyes: Reports no additional eye complaints ENT: Denies dizziness, Reports headache(s), Denies neck pain, Denies sore throat and Denies tongue swelling Cardiovascular: Cardiovascular: Denies chest pain, Denies lightheadedness and Denies dyspnea Respiratory: Respiratory: Denies cough and Denies dyspnea Gastrointestinal: Gastrointestinal: Denies abdominal pain, Denies diarrhea, Denies nausea and Denies vomiting Genitourinary: Genitourinary: Denies urinary incontinence Musculoskeletal: Musculoskeletal: Reports arthralgias, Denies neck pain and Reports radiating pain into limb Comments: right arm pain s/p fall down stairs 2 weeks ago - had workup and imaging done at [facility] Integumentary/Breasts: Skin/Breast: Denies rash Neurologic: Reports confusion, Denies dizziness and Reports headache(s) Psychiatric: Psychiatric: Reports confusion Endocrine: Endocrine: Denies fatigue Hematologic/Lymphatic: Hematologic/Lymphatic: Denies easy bleeding and Denies easy bruising Allergic/Immunologic: Allergic/Immunologic: Denies tongue swelling PMFSH Social History Social History Alcohol intake: former Patient Tobacco Use Status: Current everyday Tobacco user Advance Directives: No Advance Directives Information Provided: Yes Physical Exam Vital Signs: Vital Signs: Last Vital Signs Temp 98.5 F 10/11/20 07:30 Pulse 63 10/11/20 09:25 Resp 16 10/11/20 09:25 BP 129/69 10/11/20 09:25 Pulse Ox 95 10/11/20 09:25 Body Mass Index 24.0 Const: General: confusion and tired appearing Nutritional Appearance: average body habitus and well nourished Orientation/consciousness: confusion Limitations: no limitations HENMT: Head: Yes normal to inspection, Yes normocephalic and Yes atraumatic Ears: hearing grossly normal bilaterally General nose exam: Normal external nose present Face and sinus: Yes normal facial exam Mouth: Normal oral and palatal mucosa present, lip normal and tongue normal Teeth and gingiva: dentition normal and gingiva normal Throat: Yes posterior oropharynx normal Eyes: General: appearance normal, both eyes and all related structures Neck: Neck: Yes normal visual inspection and Yes supple Chest: Chest palpation & inspection: normal inspection of the chest Resp: Effort & Inspection: normal respiratory effort and able to speak in complete sentences Auscultation: clear to auscultation bilaterally Cardio: Rate: regular rate Rhythm: regular rhythm Heart sounds: S1 normal heart sound present and S2 normal heart sound present GI: Inspection: Yes normal to inspection Palpation (GI): Soft to palpation and nontender Auscultation: normal bowel sounds Rectal Exam - Male: Yes deferred Skin: General skin exam: no rashes or lesions noted Neuro: General: confusion Extrem: General: Yes normal to inspection Right upper extremity: no joint enlargement and shoulder/upper arm Details: abnormal ROM Details: pain with active ROM Details: in ABduction Left upper extremity: normal to inspection and full ROM Right lower extremity: normal to inspection and full ROM Left lower extremity: normal to inspection and full ROM Psych: Appearance: disheveled Speech and movement: Normal speech and movement present Affect: Indifferent affect present Attitude: cooperative Thought process: Normal thought process present Thought content: Suicidali ty present Insight: Fair insight present (Psych) Judgement: Fair judgement present (Psych) Course Course Course Narrative: 40 y/o male with history of epilepsy on 3 AED's with compliance who is coming in for his 3rd ER visit this week with witnessed seizur es. He also had seizures at [facility] ER 09/30 per documentation. He has been hospitalized at [facility] for SI and depression. Will repeat metabolic workup and r/o infection. He has some confusion and lethargy after the event. RUE pain with limited ROM s/p fall but RLE normal, not consistent with Henrry's paralysis. Will place on seizure prescautions and monitor closely. Reevaluation(s) Reevaluation #1: Metabolic workup is unremarkable. Spoke with Dr. Ballard who is the patient's Neurologist - he is recommending transfer to [facility] for [employer] EEG given recurrent witnessed seizures on multiple AEDs. Reevaluation #2: Spoke with Neurologist at [facility] Dr. Hobbs who is on board with transfer - pending discussion with Hospitalist for direct admission. Reevaluation #3: Spoke with Sia from inpatient service at [facility] - accepting physician will be Dr. Mason and patient will be admitted to the floor there. COVID pending and then he can be transferred. Consultations Consultation #1: Neurology - Dr. Ballard [facility] - Seizure Lab Data Result diagrams: 10/11/20 08:49 08/06/21 08:49 Labs: Lab Results 10/11/20 10/11/20 10/11/20 Range/Units 08:49 08:49 08:49 WBC 5.9 (4.8-10.8) X10*3/uL RBC 4.44 L (4.60-5.80) X10*6/uL Hgb 13.5 L (14.0-18.0) g/dl Hct 40.3 L (42-52) % MCV 90.8 (80-98) fL MCH 30.4 (27.0-33.0) pg MCHC 33.5 (31.0-36.0) g/dl RDW 13.3 (11.0-16.0) % Plt Count 188 (160-400) X10*3/uL MPV 10.3 (9.4-12.4) fL Immature Gran % (Auto) 0.3 (0.0-0.4) % Neut % (Auto) 73.9 H (45-73) % Lymph % (Auto) 17.2 L (20-40) % [place] % (Auto) 7.3 (2-11) % Eos % (Auto) 1.0 (0-4) % Baso % (Auto) 0.3 (0-2) % Lymph # (Auto) 1.0 L (1.2-4.9) X10*3/uL [place] # (Auto) 0.4 (0.1-1.2) X10*3/uL Eos # (Auto) 0.1 (0.0-0.4) X10*3/uL Baso # (Auto) 0.0 (0.0-0.2) X10*3/uL Abs Immat Gran (auto) 0.02 (0.00-0.03) X10*3/uL Absolute Neuts (auto) 4.3 (2.0-8.3) X10*3/uL Absolute Nucleated RBC 0.000 (0.0-0.012) X10*3/uL Nucleated RBC % (auto) 0.0 (0.0-0.2) /100WBC Sodium 141 (135-145) mmol/L Potassium 4.1 (3.3-5.1) mmol/L Chloride 107 (96-108) mmol/L Carbon Dioxide 26 (22-29) mmol/L Anion Gap 12 (12-20) BUN 14 (9-16) mg/dL Creatinine 0.72 (0.5-1.4) mg/dL Estim Creat Clear Calc 142.2 Estimated GFR > 60 Random Glucose 86 (60-115) mg/dL Calcium 9.1 (8.4-10.2) mg/dL Magnesium 1.9 (1.6-2.6) mg/dL Total Bilirubin 0.3 (0.0-1.0) mg/dL Direct Bilirubin 0.2 (0.0-0.5) mg/dL AST 16 (5-37) U/L ALT 16 (0-40) U/L Alkaline Phosphatase 120 H (39-117) U/L Total Creatine Kinase 116 (38-174) U/L Total Protein 6.9 (6.5-8.0) g/dL Albumin 3.9 (3.5-5.0) g/dL Urine Color Urine Appearance Urine pH (5.0-8.0) Ur Specific [place] (1.005-1.025) Urine Protein (NEG-TRACE) MG/DL Urine Glucose (UA) (NEG) MG/DL Urine Ketones (NEG) MG/DL Urine Blood (NEG) Urine Nitrite (NEG) Ur Leukocyte Esterase (NEG) Ethyl Alcohol < 10 mg/dL 10/11/20 Range/Units Unknown WBC (4.8-10.8) X10*3/uL RBC (4.60-5.80) X10*6/uL Hgb (14.0-18.0) g/dl Hct (42-52) % MCV (80-98) fL MCH (27.0-33.0) pg MCHC (31.0-36.0) g/dl RDW (11.0-16.0) % Plt Count (160-400) X10*3/uL MPV (9.4-12.4) fL Immature Gran % (Auto) (0.0-0.4) % Neut % (Auto) (45-73) % Lymph % (Auto) (20-40) % [place] % (Auto) (2-11) % Eos % (Auto) (0-4) % Baso % (Auto) (0-2) % Lymph # (Auto) (1.2-4.9) X10*3/uL [place] # (Auto) (0.1-1.2) X10*3/uL Eos # (Auto) (0.0-0.4) X10*3/uL Baso # (Auto) (0.0-0.2) X10*3/uL Abs Immat Gran (auto) (0.00-0.03) X10*3/uL Absolute Neuts (auto) (2.0-8.3) X10*3/uL Absolute Nucleated RBC (0.0-0.012) X10*3/uL Nucleated RBC % (auto) (0.0-0.2) /100WBC Sodium (135-145) mmol/L Potassium (3.3-5.1) mmol/L Chloride (96-108) mmol/L Carbon Dioxide (22-29) mmol/L Anion Gap (12-20) BUN (9-16) mg/dL Creatinine (0.5-1.4) mg/dL Estim Creat Clear Calc Estimated GFR Random Glucose (60-115) mg/dL Calcium (8.4-10.2) mg/dL Magnesium (1.6-2.6) mg/dL Total Bilirubin (0.0-1.0) mg/dL Direct Bilirubin (0.0-0.5) mg/dL AST (5-37) U/L ALT (0-40) U/L Alkaline Phosphatase (39-117) U/L Total Creatine Kinase (38-174) U/L Total Protein (6.5-8.0) g/dL Albumin (3.5-5.0) g/dL Urine Color YELLOW Urine Appearance CLEAR Urine pH 7.0 (5.0-8.0) Ur Specific [place] 1.020 (1.005-1.025) Urine Protein NEG (NEG-TRACE) MG/DL Urine Glucose (UA) NEG (NEG) MG/DL Urine Ketones NEG (NEG) MG/DL Urine Blood NEG (NEG) Urine Nitrite NEG (NEG) Ur Leukocyte Esterase NEG (NEG) Ethyl Alcohol mg/dL Discharge Plan Discharge Clinical Impression: Epileptic seizure Qualifiers: Epilepsy type: unspecified Intractability: not intractable Status epilepticus: without status epilepticus Qualified Code(s): G40.909 - Epilepsy, unspecified, not intractable, without status epilepticus Patient Disposition: [facility] Transfer Details: [facility] Additional Instructions: Transfer to [facility] for [facility] EEG monitoring Prescriptions: No Action lamotrigine 150 mg tablet 2 tab PO BID RF: 0 levetiracetam 500 mg tablet 4 tab PO BID RF: 0 clonazepam 1 mg tablet 1 mg PO DAILY RF: 0 clonazepam 1 mg tablet 2 mg PO BEDTIME RF: 0 phenytoin sodium extended 100 mg capsule 2 cap PO BID RF: 0 Combivent Respimat 20-100 mcg/actuation mist 1 puff inhalation QID PRN (Reason: Shortness Of Breath) RF: 0 magnesium oxide 400 mg magnesium Tablet 400 mg PO BID RF: 0
[2020-10-11 08:54] LABS: Basophils Percent Auto 0.3 % (0-2); Eosinophils Absolute Auto 0.1 X10*3/uL (0.0-0.4); Hematocrit 40.3 % (42-52); Hemoglobin 13.5 g/dl (14.0-18.0); Imm Gran Abs Auto 0.02 X10*3/uL (0.00-0.03); Imm Gran Pct Auto 0.3 % (0.0-0.4); Lymphocytes Percent Auto 17.2 % (20-40); Mean Corpuscular HGB Conc 33.5 g/dl (31.0-36.0); Mean Corpuscular Hemoglobin 30.4 pg (27.0-33.0); Mean Corpuscular Volume 90.8 fL (80-98); Mean Platelet Volume 10.3 fL (9.4-12.4); Monocytes Absolute Auto 0.4 X10*3/uL (0.1-1.2); Monocytes Percent Auto 7.3 % (2-11); Neutrophils Absolute Auto 4.3 X10*3/uL (2.0-8.3); Neutrophils Percent Auto 73.9 % (45-73); Platelet Count 188 X10*3/uL (160-400); Red Blood Count 4.44 X10*6/uL (4.60-5.80); Red Cell Distribution Width 13.3 % (11.0-16.0); White Blood Count 5.9 X10*3/uL (4.8-10.8)
[2020-10-11] MEDS: 0.9 % Sodium Chloride 1,000 ML 999 ML IVCONT (09:12)
[2020-10-11 09:17] LABS: Ethanol < 10 mg/dL
[2020-10-11 09:22] LABS: Alanine Aminotransferase 16 U/L (0-40); Albumin Level 3.9 g/dL (3.5-5.0); Alkaline Phosphatase 120 U/L (39-117); Anion Gap 12 (12-20); Aspartate Amino Transferase 16 U/L (5-37); Bilirubin Direct 0.2 mg/dL (0.0-0.5); Bilirubin Total 0.3 mg/dL (0.0-1.0); Blood Urea Nitrogen 14 mg/dL (9-16); Calcium 9.1 mg/dL (8.4-10.2); Carbon Dioxide 26 mmol/L (22-29); Chloride 107 mmol/L (96-108); Creatinine Clr Calc Pharmacy 142.2; Estimated Glomerular Filt Rate > 60; Glucose Random 86 mg/dL (60-115); Magnesium 1.9 mg/dL (1.6-2.6); Potassium 4.1 mmol/L (3.3-5.1); Sodium 141 mmol/L (135-145); Total Protein 6.9 g/dL (6.5-8.0)
[2020-10-11] MEDS: levETIRAcetam 2,000 MG in 0.9 % Sodium Chloride 100 ML 400 MG IV (09:22)
[2020-10-11 09:25] VITALS: BP 129/69; PULSE 63; RESP 16; O2SAT 95
--- NOTE | 2020-10-11 09:31 | HE.PHANOTE ---
Pharmacy Consult ? Medication Reconciliation Pharmacy has completed the medication reconciliation and there were no significant medication issues requiring provider attention.? Patient reports taking an extra phenytoin every 3-4 days in the morning. Elodia Mccann PharmD
--- NOTE | 2020-10-11 10:00 | PC.NURSE ---
Patient is resting in bed in no distress. No seizure activity note since arrival in ER.
[2020-10-11 10:49] LABS: Glucose Urine UA NEG (NEG); Leukocyte Esterase Urine NEG (NEG); Nitrite Urine NEG (NEG); Urine Blood NEG (NEG); Urine Ketones NEG (NEG); Urine Protein NEG (NEG-TRACE)
[2020-10-11 10:51] LABS: Appearance Urine CLEAR; Color Urine YELLOW
[2020-10-11 11:17] LABS: Amphetamine Screen Urine Not Detected (Not Detect); Barbiturates, Urine Not Detected (Not Detect); Benzodiazepines Screen Urine POSITIVE (Not Detect); Cannabinoid Screen Urine Not Detected (Not Detect); Cocaine Screen Urine Not Detected (Not Detect); Opiate Screen Urine Not Detected (Not Detect); Phencyclidine Screen Urine Not Detected (Not Detect)
[2020-10-11 11:33] LABS: Phenytoin Dilantin 12.6 ug/mL (10.0-20.0)
[2020-10-11 11:42] LABS: Influenza A PCR NEGATIVE (Negative); Influenza B PCR NEGATIVE (Negative); Resp Syncy Virus RNA Qual PCR NEGATIVE (Negative); SARS COV2 PCR INHOUSE NEGATIVE (Negative)
[2020-10-11 12:10] VITALS: BP 126/72; PULSE 68; RESP 17; O2SAT 97
--- NOTE | 2020-10-11 17:50 | PC.NURSE ---
Report called to STEPHANIE Vergara at [facility].
--- NOTE | 2020-10-11 17:55 | PC.NURSE ---
VS 98.5 Pulse 66, Resp 17, BP 124/65 Sats 97
--- NOTE | 2020-10-11 18:02 | PC.NURSE ---
Patient is leaving with ems going to [facility] for further treatment. Pt is alert, oriented and in no distress. No seizure activity since arrival in ER
== END 2020-10-11 18:04 | disposition short-term general hospital (02) ==
PROVIDERS: Physician Assistant; Emergency Provider Emergency Medicine Emergency Medical Services
DX: G40.909 Epilepsy, unspecified, not intractable, without status epilepticus (principal); F41.9 Anxiety disorder, unspecified; Z79.899 Other long term (current) drug therapy; Z20.822 Contact with and (suspected) exposure to COVID-19
CPT/HCPCS: 0241U; 36415; 80048; 80076; 80185; 80307; 81003; 82077; 82550; 83735; 85025; 96361; 96374; 99285; J1953

== ENCOUNTER 2021-05-14 14:12 | Outpatient (REF) | payer MEDICAID, SELFPAY ==
[2021-05-14 15:29] LABS: Alanine Aminotransferase 13 U/L (0-40); Albumin Level 4.4 g/dL (3.5-5.0); Alkaline Phosphatase 110 U/L (39-117); Aspartate Amino Transferase 16 U/L (5-37); Bilirubin Direct 0.2 mg/dL (0.0-0.5); Bilirubin Total 0.4 mg/dL (0.0-1.0); Total Protein 7.8 g/dL (6.5-8.0)
[2021-05-14 15:39] LABS: Phenytoin Dilantin 15.5 ug/mL (10.0-20.0)
[2021-05-19 08:22] LABS: Lamotrigine Lamictal 3.6 mcg/mL (4.0-18.0)
[2021-05-19 09:56] LABS: Levetiracetam Keppra 25.4 mcg/mL (12.0-46.0)
== END 2021-05-14 14:13 | disposition home or self-care (01) ==
LOC: HO.LAB 14:12
PROVIDERS: Absent Provider Internal Medicine Geriatric Medicine; PCP Internal Medicine Geriatric Medicine; Visit Provider Psychiatry & Neurology Neurology
DX: G40.909 Epilepsy, unspecified, not intractable, without status epilepticus (principal)
CPT/HCPCS: 36415; 80076; 80175; 80177; 80185

== ENCOUNTER 2021-11-24 20:03 | Emergency (ER) | payer MEDICAID, SELFPAY ==
[2021-11-24 20:08] VITALS: BP 140/83; PULSE 89; RESP 18; TEMP 37.2; O2SAT 99; BMI 26.4
--- NOTE | 2021-11-25 00:04 | ED_ITS ---
HPI - General Adult General Chief complaint: Skin/Abscess/Foreign Body Stated complaint: abscesses Time Seen by Provider: 11/24/21 23:50 Source: patient Mode of arrival: ambulatory Limitations: no limitations History of Present Illness HPI narrative: 41 yold male presents to the ED for Right leg masses that is red and painful. Patient denies any leg swelling, calf pain, coughing up blood, chest pain, recent long travel, recent surgery, recent trauma, or shortness of breath. Related Data Home Medications Medication Instructions Recorded Confirmed clonazepam 1 mg tablet 1 mg PO DAILY 10/11/20 10/11/20 clonazepam 1 mg tablet 2 mg PO BEDTIME 10/11/20 10/11/20 ipratropium 20 mcg-albuterol 100 1 puff inhalation QID PRN 10/11/20 10/11/20 mcg/actuation mist for inhalation Shortness Of Breath (Combivent Respimat) lamotrigine 150 mg tablet 2 tab PO BID 10/11/20 10/11/20 levetiracetam 500 mg tablet 4 tab PO BID 10/11/20 10/11/20 magnesium oxide 400 mg PO BID 10/11/20 10/11/20 phenytoin sodium extended 100 mg 2 cap PO BID 10/11/20 10/11/20 capsule Previous Rx's Medication Instructions Recorded cephalexin 500 mg capsule 500 mg PO QID 7 days #28 caps 11/25/21 doxycycline hyclate 100 mg tablet 100 mg PO BID 7 days #14 tabs 11/25/21 naproxen 500 mg tablet 500 mg PO BID PRN pain 10 days #20 11/25/21 tabs Allergies Allergy/AdvReac Type Severity Reaction Status Date / Time erythromycin base Allergy Unknown UNKNOWN Unverified 11/23/19 14:39 [Erythromycin Base] Review of Systems Review of Systems: right leg mass Yes all other systems are reviewed and are negative PMFSH Social History Social History Alcohol intake: former Patient Tobacco Use Status: Current everyday Tobacco user Advance Directives: No Advance Directives Information Provided: No Physical Exam ED Vital Signs: Vital Signs - 24 hr 11/24/21 20:08 Temperature 98.9 F Pulse Rate 89 Respiratory Rate 18 Blood Pressure 140/83 H Pulse Oximetry 99 Oxygen Delivery Method Room Air BMI result Body Mass Index 26.4 Const General: cooperative, healthy appearing, comfortable, no acute distress, well developed, alert, awake and Physically active Orientation/consciousness: patient oriented x3 HENMT Head: Yes normal to inspection, Yes No palpable skull fracture present, Yes normocephalic, Yes atraumatic and No abrasion Eyes General: appearance normal, both eyes and all related structures Neck Neck: Yes normal visual inspection, Yes full ROM, Yes no lymphadenopathy, Yes no meningeal signs, Yes trachea midline, Yes supple, No anterior neck swelling and No torticollis Chest Chest palpation & inspection: normal inspection of the chest and normal pa lpation of entire chest wall Resp Effort & Inspection: normal respiratory effort and able to speak in complete sentences Auscultation: clear to auscultation bilaterally Cardio Jugular venous distension: no JVD Heart sounds: S1 normal heart sound present and S2 normal heart sound present GI Inspection: Yes normal to inspection and No abdominal wall ecchymosis Palpation (GI): Soft to palpation, not firm, nontender, no guarding and not rigid General: No CVA tenderness and Yes no CVA tenderness Back/Spine/Pelvis Back: no CVA tenderness, No CVA tenderness and No back tenderness Skin General skin exam: no rashes or lesions noted and elasticity normal Neuro General: patient oriented x3, gait normal and no meningeal signs Cranial nerves: Yes CN's II-XII intact bilaterally Extrem General: Yes normal to inspection and Yes full ROM Upper/lower leg/hip images: 1. MASS WITH REDNESS AND TENDERNESS WITH WAMRMTH THAT IS NOT FLUCULTANT. no ACTIVE PUS DRAINAGE. 2. MASS WITH REDNESS AND TENDERNESS WITH WAMRMTH THAT IS NOT FLUCULTANT. no ACTIVE PUS DRAINAGE. Psych Appearance: grossly normal, well kempt and not disheveled Course Course Course Narrative: pATIENT IS WELL APPERARING. Reevaluation(s) Reevaluation #1: eARLY ABSCESS VS CELLULITIS. nOT YET READY FOR INCISION AND DRAINAGE. PATIENT WILL BE DISCHARGED WITH ANTIOBITCS. PATIENT EDUCATED ON WARM COMPRESSION FOUR TIMES A DAY FOR 15 MINUTES. Time: 00:13 Medical Decision Making [facility] Narrative Medical decision making narrative: eARLY ABSCESS VS. CELLULITIS Discharge Plan Discharge Clinical Impression: Abscess, Cellulitis Patient Disposition: Home, Self-Care Instructions: Cellulitis (ED), Abscess (ED), Warm Compress or Soak (ED) Additional Instructions: You will be discharged with antibiotics and pain medication. Presently abscess not yet ready for Incision & drainage. Recommend warm compress on abscess 4 times a day for 15 minutes. Return to the ED immediately for pus draainge, increase swelling, worsening pain, fever, chills, red streaks, calf pain, chest pain, shortness of breath, or any other concerning symptoms. Re-evaluate absces in 4 days in ED if no improvement. Also follow up with PCP. Prescriptions: New cephalexin 500 mg capsule 500 mg PO QID 7 Days Qty: 28 0RF doxycycline hyclate 100 mg tablet 100 mg PO BID 7 Days Qty: 14 0RF naproxen 500 mg tablet 500 mg PO BID PRN (Reason: pain) 10 Days Qty: 20 0RF No Action lamotrigine 150 mg tablet 2 tab PO BID levetiracetam 500 mg tablet 4 tab PO BID clonazepam 1 mg tablet 1 mg PO DAILY clonazepam 1 mg tablet 2 mg PO BEDTIME phenytoin sodium extended 100 mg capsule 2 cap PO BID Rx Instructions: pt reports taking an extra dose every 3 -4 days in the morning Combivent Respimat 20-100 mcg/actuation mist 1 puff inhalation QID PRN (Reason: Shortness Of Breath) magnesium oxide 400 mg magnesium Tablet 400 mg PO BID Stand Alone Forms: Work/School Release Interventions: ED Discharge Assessment Last Done: 11/25/21 00:50 Discharge Date/Time: 11/25/21 00:50 Print Language: Paraguayan
[2021-11-25] MEDS: Ibuprofen 800 MG TABLET PO (00:49)
[2021-11-25] MEDS: cephALEXin 500 MG CAPSULE PO (00:49)
== END 2021-11-25 00:50 | disposition home or self-care (01) ==
PROVIDERS: Emergency Provider Internal Medicine; PCP Internal Medicine Geriatric Medicine
DX: L02.415 Cutaneous abscess of right lower limb (principal); L03.115 Cellulitis of right lower limb; M79.661 Pain in right lower leg
CPT/HCPCS: 99283

== ENCOUNTER 2023-07-04 12:22 | Inpatient (IN) | payer OTHER, MEDICAID, SELFPAY ==
[2023-07-04 12:43] VITALS: BP 162/96; PULSE 72; O2SAT 98
[2023-07-04 12:44] VITALS: BP 126/69; PULSE 57; RESP 18; TEMP 37; O2SAT 99; BMI 35.0
--- NOTE | 2023-07-04 12:59 | ED.PSYCH ---
HPI - Psych General Chief Complaint: Psychiatric Symptoms Stated Complaint: WANTS PSYCH HELP Time Seen by Provider: 07/04/23 12:34 Source: patient and EMS Mode of arrival: EMS Limitations: no limitations History of Present Illness HPI Narrative: 43-year-old male with a history of bipolar disorder, alcohol use disorder, COPD, seizure disorder who presents to the ER via EMS for psychiatric evaluation. Patient states he would like to be admitted to [facility] for stabilization of his medications. He feels that his current meds are causing him to forget things and making thinking very difficult. He states he has been compliant with his medications but they are not working. He feels depressed and hopeless. He denies any suicidal or homicidal thoughts. Denies any hallucinations of any kind. He states he has a chronic tremor in his bilateral hands and they get worse when he is under stress. Does admit to intermittent alcohol use last was yesterday the day before. He states he drinks 1 shot and a beer but does not drink heavily. Denies history of withdrawals. He lives with his brother who knows that he is here. States he called me on [facility] for admission and they told him to come to the ER for a referral. MD complaint: feels depressed Duration: getting worse History of same: Yes Relieving factors: medication and therapy Exacerbating factors: alcohol Context: recent alcohol abuse Associated psychiatric symptoms: depression Associated symptoms: denies other symptoms Related Data Home Medications ?Medication ?Instructions ?Recorded ?Confirmed clonazepam 0.5 mg tablet 0.5 mg PO DAILY 07/04/23 07/04/23 clonazepam 1 mg tablet 1 mg PO BEDTIME 07/04/23 07/04/23 divalproex 500 mg tablet,extended 500 mg PO BID 07/04/23 07/04/23 release 24 hr (Depakote ER) ibuprofen 600 mg tablet 600 mg PO TID PRN Pain 07/04/23 07/04/23 ipratropium 20 mcg-albuterol 100 1 puff inhalation Q6H PRN Adequate 07/04/23 07/04/23 mcg/actuation mist for inhalation Ventilation (Combivent Respimat) lamotrigine 150 mg tablet 300 mg PO DAILY 07/04/23 07/04/23 levetiracetam 1,000 mg tablet 1,000 mg PO Q12H 07/04/23 07/04/23 melatonin 5 mg tablet 5 mg PO BEDTIME PRN Insomnia 07/04/23 07/04/23 sertraline 50 mg tablet 50 mg PO DAILY 07/04/23 07/04/23 Allergies Allergy/AdvReac Type Severity Reaction Status Date / Time erythromycin base Allergy Unknown UNKNOWN Verified 07/04/23 12:49 [Erythromycin Base] Review of Systems Review of Systems: Yes all other systems are reviewed and are negative [facility] Social History Social History Alcohol intake: current Alcohol intake frequency: a few times a week Alcohol type: beer and hard liquor Patient Tobacco Use Status: Current everyday Tobacco user Smoked in Last 30 Days: Yes Use of substances other than those prescribed or required for medical reasons: No Advance Directives: No Advance Directives Information Provided: No Do you have a plan to hurt others: No Plan Physical Exam Vital Signs: Vital Signs: Last Vital Signs Temp 98.6 F 07/04/23 15:19 Pulse 55 07/04/23 15:19 Resp 16 07/04/23 15:19 BP 103/54 L 07/04/23 15:19 Pulse Ox 97 07/04/23 15:19 O2 Del Method Room Air 07/04/23 15:19 BMI result Body Mass Index 35.0 Appearance: Alert. Oriented X3. No acute distress. Head: normocephalic, atraumatic. Eyes: Pupils equal, round and reactive to light. ENT: Pharynx normal. No tonsillar swelling or exudate. Neck: Normal inspection. Neck supple. CVS: Normal heart rate and rhythm. Pulses normal. Respiratory: No respiratory distress. Breath sounds normal. Abdomen: Soft and nontender. +BS x4 Skin: Skin warm and dry. Normal skin color. Normal skin turgor. No rashes. Extremities: No lower extremity edema. No joint swelling. Neuro/psych: Oriented X 3. No motor deficit. No sensory deficit. CN II-XII intact. Normal speech and cognition. Mood is depressed. Affect is somewhat flat. Does not elaborate when interviewed not suicidal Course Reevaluation(s) Reevaluation #1: Physician observation started at 3:03pm. Patient placed in physician observation because patient is awaiting CARE team evaluation for the possible need of inpatient psych admission. At the time observation was started patient's vital signs were stable. Patient is alert and oriented. Neuro exam is non-focal. CV: RRR and lungs are clear. Will continue to monitor. Time: 15:04 Medical Decision Making Medical Decision Making [facility] Narrative: 43-year-old male with history of bipolar disorder and alcohol use, history of seizures and COPD who presents to the ER for evaluation of worsening depression despite medication compliance. He is desiring inpatient psychiatric care for medication adjustment. He is medically cleared at this time. He is pending care team evaluation for possible need of inpatient psychiatric care. 15:46 evaluated by the care team. Patient is it a voluntary inpatient bed search. No on a section 12. Differential Diagnosis Differential Diagnoses: The differential diagnosis associated with the presentation includes substance induced mood disorder, acute psychosis, schizophrenia, schizoaffective disorder, PTSD, bipolar disorder, major depression with psychotic features Admission/Observation Consideration of admission/observation: Escalation of care including admission/observation considered Lab Data [facility] Lab Attestation statement: I reviewed the patient's lab results. Mild pancytopenia likely due to his chronic alcohol abuse and bone marrow suppression 07/04/23 13:57 07/04/23 13:57 Labs: Lab Results 07/04/23 07/04/23 Range/Units 12:58 13:57 WBC 3.0 L (4.8-10.8) X10*3/uL RBC 4.24 L (4.60-5.80) X10*6/uL Hgb 13.4 L (14.0-18.0) g/dl Hct 40.0 L (42.0-52.0) % MCV 94.3 (80.0-98.0) fL MCH 31.6 (27.0-33.0) pg MCHC 33.5 (31.0-36.0) g/dl RDW 14.6 (11.0-16.0) % Plt Count 117 L (160-400) X10*3/uL MPV 11.3 (9.4-12.4) fL Immature Gran % (Auto) 0.3 (0.0-0.4) % Neut % (Auto) 45.7 (45-73) % Lymph % (Auto) 40.7 H (20-40) % Craig % (Auto) 9.3 (2-11) % Eos % (Auto) 3.3 (0-4) % Baso % (Auto) 0.7 (0-2) % Lymph # (Auto) 1.2 (1.2-4.9) X10*3/uL Craig # (Auto) 0.3 (0.1-1.2) X10*3/uL Eos # (Auto) 0.1 (0.0-0.4) X10*3/uL Baso # (Auto) 0.0 (0.0-0.2) X10*3/uL Abs Immat Gran (auto) 0.01 (0.00-0.03) X10*3/uL Absolute Neuts (auto) 1.4 L (2.0-8.3) x10*3/uL Absolute Nucleated RBC 0.000 (0.0-0.012) X10*3/uL Nucleated RBC % (auto) 0.0 (0.0-0.2) /100WBC Sodium 142 (135-145) mmol/L Potassium 4.7 (3.3-5.1) mmol/L Chloride 106 (96-108) mmol/L Carbon Dioxide 29 (22-29) mmol/L Anion Gap 12 (12-20) BUN 18 H (9-16) mg/dL Creatinine 0.90 (0.5-1.4) mg/dL Estim Creat Clear Calc 125.1 Estimated GFR > 60 Random Glucose 121 H (60-115) mg/dL Calcium 9.0 (8.4-10.2) mg/dL Magnesium 2.0 (1.6-2.6) mg/dL Total Bilirubin 0.4 (0.0-1.0) mg/dL Direct Bilirubin 0.2 (0.0-0.5) mg/dL AST 17 (5-37) U/L ALT 12 (0-40) U/L Alkaline Phosphatase 45 (39-117) U/L Total Protein 6.9 (6.5-8.0) g/dL Albumin 4.0 (3.5-5.0) g/dL Urine Color Dark Yellow Urine Appearance Clear Urine pH 6.0 (5.0-9.0) Ur Specific [place] >= 1.030 H (1.005-1.025) Urine Protein 30 (1+) H (Neg-Trace) mg/dL Urine Glucose (UA) Negative (Negative) mg/dL Urine Ketones 15 (Negative) mg/dL Urine Blood Negative (Negative) Urine Nitrite Negative (Negative) Ur Leukocyte Esterase Negative (Negative) Urine RBC 0-2 (0-2) /HPF Urine WBC 0-5 (0-5) /HPF Ur Squamous Epith Cells 0-2 (0-2) /HPF Urine Bacteria None Seen (None Seen) Hyaline Casts 0-2 (0-2) /LPF Urine Opiates Screen Not Detected (Not Detect) Ur Buprenorphine Scrn Not Detected (Not Detect) ng/mL Ur Oxycodone Screen Not Detected (Not Detect) ng/mL Urine Methadone Screen Not Detected (Not Detect) ng/mL Urine Fentanyl Screen Not Detected (Not Detect) Ur Barbiturates Screen Not Detected (Not Detect) Ur Phencyclidine Scrn Not Detected (Not Detect) Ur Amphetamines Screen Not Detected (Not Detect) U Benzodiazepines Scrn Not Detected (Not Detect) Urine Cocaine Screen Not Detected (Not Detect) U Marijuana (THC) Screen Not Detected (Not Detect) Ethyl Alcohol < 10 mg/dL Independent Historian Clinical information obtained from an independent historian. History obtained from or confirmed by: EMS External Record Review External record reviewed: Office record, Outpatient record, Prior outpatient labs and Prior outpatient radiology Prescription Management I considered prescription management with: Other (Antipsychotic, antidepressant) Chronic Conditions Patient?s care impacted by: Other (Bipolar disorder, COPD, alcohol use disorder) Social Determinants Patient?s care significantly limited by Social Determinants of Health including: Problems related to primary support group and Other Social Determinant of Health Critical Care Time Critical Care Time Critical Care Time: No Discharge Plan Discharge Clinical Impression: Bipolar disorder, Depression Patient Disposition: Still a Patient Prescriptions: No Action lamotrigine 150 mg Tablet 300 mg PO DAILY clonazepam 0.5 mg Tablet 0.5 mg PO DAILY clonazepam 1 mg Tablet 1 mg PO BEDTIME Rx Instructions: administer 30 minutes before bedtime divalproex [Depakote ER] 500 mg Tablet Extended Release 24 Hr 500 mg PO BID ibuprofen 600 mg Tablet 600 mg PO TID PRN (Reason: Pain) sertraline 50 mg Tablet 50 mg PO DAILY levetiracetam 1,000 mg Tablet 1,000 mg PO Q12H melatonin 5 mg Tablet 5 mg PO BEDTIME PRN (Reason: Insomnia) Combivent Respimat 20-100 mcg/actuation mist 1 puff inhalation Q6H PRN (Reason: Adequate Ventilation) Interventions: [place]-Suicide Risk Severity Scale Last Done: 07/04/23 13:44 Print Language: [place]
[2023-07-04 13:10] LABS: Appearance Urine Clear; Color Urine Dark Yellow; Glucose Urine UA Negative (Negative); Leukocyte Esterase Urine Negative (Negative); Nitrite Urine Negative (Negative); Specific Gravity - Urine >= 1.030 (1.005-1.025); UMIC TRIGGER UACC YES; Urine Blood Negative (Negative); Urine Ketones 15 mg/dL (Negative); Urine Protein 30 (1+) mg/dL (Neg-Trace)
[2023-07-04 13:16] LABS: Bacteria Urine None Seen (None Seen); Hyaline Casts Urine 0-2 /LPF (0-2); RBC Urine 0-2 /HPF (0-2); Squamous Epithelial Cell Urine 0-2 /HPF (0-2); WBC Urine 0-5 /HPF (0-5)
[2023-07-04 13:25] LABS: Amphetamine Screen Urine Not Detected (Not Detect); Barbiturates, Urine Not Detected (Not Detect); Benzodiazepines Screen Urine Not Detected (Not Detect); Buprenorphine Scr Not Detected (Not Detect); Cannabinoid Screen Urine Not Detected (Not Detect); Cocaine Screen Urine Not Detected (Not Detect); Fentanyl, urine Not Detected (Not Detect); Methadone Screen, Urine Not Detected (Not Detect); Opiate Screen Urine Not Detected (Not Detect); Oxycodone Screen Urine Not Detected (Not Detect); Phencyclidine Screen Urine Not Detected (Not Detect)
[2023-07-04 13:43] VITALS: BP 126/69; PULSE 57; RESP 18; TEMP 37; O2SAT 99
[2023-07-04 14:01] LABS: MANUAL DIFF FLAG NO
[2023-07-04 14:06] LABS: Basophils Percent Auto 0.7 % (0-2); Eosinophils Absolute Auto 0.1 X10*3/uL (0.0-0.4); Eosinophils Percent Auto 3.3 % (0-4); Hemoglobin 13.4 g/dl (14.0-18.0); Imm Gran Abs Auto 0.01 X10*3/uL (0.00-0.03); Imm Gran Pct Auto 0.3 % (0.0-0.4); Lymphocytes Absolute Auto 1.2 X10*3/uL (1.2-4.9); Lymphocytes Percent Auto 40.7 % (20-40); Mean Corpuscular HGB Conc 33.5 g/dl (31.0-36.0); Mean Corpuscular Hemoglobin 31.6 pg (27.0-33.0); Mean Corpuscular Volume 94.3 fL (80.0-98.0); Mean Platelet Volume 11.3 fL (9.4-12.4); Monocytes Absolute Auto 0.3 X10*3/uL (0.1-1.2); Monocytes Percent Auto 9.3 % (2-11); Neutrophils Absolute Auto 1.4 x10*3/uL (2.0-8.3); Neutrophils Percent Auto 45.7 % (45-73); Platelet Count 117 X10*3/uL (160-400); Red Blood Count 4.24 X10*6/uL (4.60-5.80); Red Cell Distribution Width 14.6 % (11.0-16.0)
[2023-07-04 14:18] LABS: Alanine Aminotransferase 12 U/L (0-40); Alkaline Phosphatase 45 U/L (39-117); Anion Gap 12 (12-20); Aspartate Amino Transferase 17 U/L (5-37); Bilirubin Direct 0.2 mg/dL (0.0-0.5); Bilirubin Total 0.4 mg/dL (0.0-1.0); Blood Urea Nitrogen 18 mg/dL (9-16); Carbon Dioxide 29 mmol/L (22-29); Chloride 106 mmol/L (96-108); Creatinine Clr Calc Pharmacy 125.1; Estimated Glomerular Filt Rate > 60; Ethanol < 10 mg/dL; Glucose Random 121 mg/dL (60-115); Potassium 4.7 mmol/L (3.3-5.1); Sodium 142 mmol/L (135-145); Total Protein 6.9 g/dL (6.5-8.0)
[2023-07-04 15:19] VITALS: BP 103/54; PULSE 55; RESP 16; TEMP 37; O2SAT 97
[2023-07-05] MEDS: levETIRAcetam 1,000 MG TABLET 1000 MG PO ×2 (00:43→09:10)
[2023-07-05] MEDS: clonazePAM 1 MG TABLET PO ×2 (00:43→20:35)
[2023-07-05] MEDS: Melatonin 3 MG TABLET 6 MG PO ×2 (00:47→20:34)
[2023-07-05 01:55] VITALS: RESP 14
--- NOTE | 2023-07-05 01:56 | PC.NURSE ---
Pt sleeping at the bedside. No apparent distress noted. Breaths are even regular and unlabored. Monitoring is ongoing.
[2023-07-05 06:31] VITALS: BP 120/59; PULSE 55; RESP 17; TEMP 36.5; O2SAT 96
--- NOTE | 2023-07-05 06:52 | PC.NURSE ---
Assumed care of patient. Patient is observed eating breakfast at bedside. No distress observed. Breathing is even and unlabored. Will continue plan of care.
[2023-07-05] MEDS: Divalproex Sodium ER 500 MG TAB.ER.24H PO ×2 (09:10→20:35)
[2023-07-05] MEDS: clonazePAM 0.5 MG TABLET PO (09:10)
[2023-07-05] MEDS: lamoTRIgine 100 MG TABLET 300 MG PO (09:10)
[2023-07-05] MEDS: Sertraline HCL 50 MG TABLET PO (09:10)
[2023-07-05] MEDS: Ibuprofen 600 MG TABLET PO ×2 (11:10→20:35)
--- NOTE | 2023-07-05 12:27 | PHA.MEDREC ---
Pharmacy Consult ? Medication Reconciliation Pharmacy has completed the medication reconciliation. Pharmacy has reviewed the med rec done by nursing. Keppra entered as 1,000 mg bid when claim history shows 2,000 mg bid. Nurse confirms should have been for 2,000 mg bid. Provider notified.
[2023-07-05 16:30] VITALS: BP 145/76; PULSE 60; RESP 18; TEMP 36.3; O2SAT 99
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
[2023-07-05 19:52] VITALS: BMI 35.4
[2023-07-05 20:00] VITALS: BP 119/56; PULSE 55; RESP 18; TEMP 36.9; O2SAT 96
[2023-07-05] MEDS: levETIRAcetam 1,000 MG TABLET 2000 MG PO (20:34)
[2023-07-06 08:00] VITALS: BP 130/65; PULSE 52; RESP 17; TEMP 36.2; O2SAT 97
[2023-07-06] MEDS: lamoTRIgine 100 MG TABLET 300 MG PO (08:44)
[2023-07-06] MEDS: Divalproex Sodium ER 500 MG TAB.ER.24H PO ×2 (08:45→20:50)
[2023-07-06] MEDS: levETIRAcetam 1,000 MG TABLET 2000 MG PO ×2 (08:45→20:50)
[2023-07-06] MEDS: clonazePAM 0.5 MG TABLET PO (08:46)
[2023-07-06] MEDS: Sertraline HCL 50 MG TABLET PO (08:46)
[2023-07-06 08:58] LABS: Estimated Average Glucose 94 mg/dL; Hemoglobin A1c % 4.9 % (<6.0)
[2023-07-06 09:26] LABS: Alanine Aminotransferase 14 U/L (0-40); Albumin Level 4.3 g/dL (3.5-5.0); Alkaline Phosphatase 63 U/L (39-117); Anion Gap 14 (12-20); Aspartate Amino Transferase 17 U/L (5-37); Bilirubin Total 0.5 mg/dL (0.0-1.0); Blood Urea Nitrogen 23 mg/dL (9-16); Carbon Dioxide 28 mmol/L (22-29); Chloride 104 mmol/L (96-108); Cholesterol 203 mg/dL (<200); Creatinine Clr Calc Pharmacy 130.2; Estimated Glomerular Filt Rate > 60; HDL Cholesterol 61 mg/dL (>40); LDL Cholesterol Calculated 132 mg/dL (<100); Potassium 4.6 mmol/L (3.3-5.1); Sodium 141 mmol/L (135-145); Total Protein 7.7 g/dL (6.5-8.0); Triglycerides 50 mg/dL (<150)
[2023-07-06 09:39] LABS: Glucose Fasting 59 mg/dL (60-99)
[2023-07-06] MEDS: hydrOXYzine HCL 25 MG TABLET PO (12:21)
[2023-07-06] MEDS: Ibuprofen 600 MG TABLET PO ×2 (14:13→20:50)
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
[2023-07-06 20:00] VITALS: BP 114/58; PULSE 54; TEMP 36.5; O2SAT 96
[2023-07-06] MEDS: Melatonin 3 MG TABLET 6 MG PO (20:50)
[2023-07-06] MEDS: clonazePAM 1 MG TABLET PO (20:50)
[2023-07-07 07:58] VITALS: BP 105/59; PULSE 53; RESP 18; TEMP 36.4; O2SAT 96
[2023-07-07] MEDS: lamoTRIgine 100 MG TABLET 300 MG PO (08:24)
[2023-07-07] MEDS: Divalproex Sodium ER 500 MG TAB.ER.24H PO ×2 (08:24→21:00)
[2023-07-07] MEDS: Sertraline HCL 50 MG TABLET PO (08:25)
[2023-07-07] MEDS: clonazePAM 0.5 MG TABLET PO (08:25)
[2023-07-07] MEDS: levETIRAcetam 1,000 MG TABLET 2000 MG PO ×2 (08:25→21:00)
[2023-07-07] MEDS: Ibuprofen 600 MG TABLET PO ×2 (08:29→21:02)
[2023-07-07] MEDS: hydrOXYzine HCL 25 MG TABLET PO (08:50)
[2023-07-07 10:15] LABS: Thyroid Stimulating Hormone 2.43 uIU/mL (0.32-4.0)
[2023-07-07 10:32] LABS: Folate 7.9 ng/mL (> or = 4.0); Vitamin B12 680 pg/mL (200-900)
[2023-07-07] MEDS: Lidocaine 4 % Patch ADH..PATCH 1 PATCH TRANSDERMA (13:38)
--- NOTE | 2023-07-07 16:46 | PM.NEUROCN ---
History of Present Illness Data of Consult Service Date: 07/07/23 Primary Care Provider: Matthieu Buenrostro MD [facility] Reason for consult: Seizure disorder This is a 43 yo male, with history of bipolar disorder, epilepsy, alcohol use presented voluntarily for psychiatric treatment, stabilization of meds. Reports memory loss, increase in lability and anger, low energy, wanting to sleep all the time. Reports low appetite, poor concentration. Reports he has recently attempted to taper meds on his own with poor outcomes. He sees Dr. Ballard (20 year history) on medications Keppra, lamaotrigine and Depakote. Has not seen [facility] sinceMay 2022 and has had 9 no shows in the office. He was diagnosed with epilepsy in his teens with generalized tonic clonic seizures. CT brain normal. Previous EEGs have shown abn c/w seizures. Review of Systems Review of Systems: Yes all other systems are reviewed and are negative PMFSH Social History Social History Household Members: Family Household Members Other:: brothers Housing: House Do you presently have visiting nurse or other home services: No Alcohol intake: current Alcohol intake frequency: a few times a week Alcohol type: beer and hard liquor Patient Tobacco Use Status: Current someday Tobacco user Tobacco use type: Cigarette Smoked in Last 30 Days: Yes e-Cigarette/Vaping Use: Never Used Patient Interested in Nicotine Replacement: Yes Patient Given Instructions on How to Stop Smoking: No Second Hand Smoke Exposure: No Use of substances other than those prescribed or required for medical reasons: No Currently Displaying Signs/Symptoms of Drug Intoxication Withdrawal: No Any prior treatment program specific to substance use: No Have you been hit, kicked, punched, or otherwise hurt by someone within the past year? If so, by whom?: No Do you feel safe in your current relationship?: No Current Relationship Is there a partner from a previous relationship who is making you feel unsafe now?: No Are you made to feel afraid or neglected: No Advance Directives: No Advance Directives Information Provided: No Do you have thoughts of harming others: None Do you have a plan to hurt others: No Plan Recently lost weight without trying: No How much weight loss: Not applicable Eating poorly because of decreased appetite: No Nutrition screen score: 0 Nutrition Risks: No Nutritional Risk Poor oral hygiene: No Meds Allergies Allergy/AdvReac Type Severity Reaction Status Date / Time erythromycin base Allergy Unknown UNKNOWN Verified 07/04/23 12:49 [Erythromycin Base] Active Medications: Current Medications Acetaminophen (Acetaminophen 325 Mg Tablet) 650 mg PO Q6H PRN PRN Reason: Headache/Pain Mild Scale (1-3) Al Hydroxide/Mg Hydroxide (Magnesium Hydrox/Alum Hydrox 30 Ml Oral.Susp) 30 ml PO Q6H PRN PRN Reason: Heartburn/Nausea Albuterol Sulfate (Albuterol Sulfate (0.083%) 2.5 Mg/3 Ml Vial.Neb) 5 mg INHALE Q20M PRN PRN Reason: Wheezing Clonazepam (Clonazepam 1 Mg Tablet) 1 mg PO BID [facility] Divalproex Sodium (Divalproex Sodium Er 500 Mg Tab.Er.24h) 500 mg PO BID [facility] Last Admin: 07/07/23 08:24 Dose: 500 mg Hydroxyzine HCl (Hydroxyzine Hcl 25 Mg Tablet) 25 mg PO Q6H PRN PRN Reason: Anxiety Last Admin: 07/07/23 08:50 Dose: 25 mg Ibuprofen (Ibuprofen 600 Mg Tablet) 600 mg PO TID PRN PRN Reason: Pain, Moderate(Pain Scale 4-6) Lamotrigine (Lamotrigine 100 Mg Tablet) 300 mg PO DAILY [facility] Last Admin: 07/07/23 08:24 Dose: 300 mg Levetiracetam (Levetiracetam 1,000 Mg Tablet) 2,000 mg PO BID [facility] Last Admin: 07/07/23 08:25 Dose: 2,000 mg Lidocaine (Lidocaine 4 % Patch Adh..Patch) 1 patch TRANSDERMA DAILY [facility]; Protocol Last Admin: 07/07/23 13:38 Dose: 1 patch Magnesium Hydroxide (Milk Of Magnesia 30 Ml Oral.Susp) 30 ml PO DAILY PRN PRN Reason: Constipation Melatonin (Melatonin 3 Mg Tablet) 6 mg PO BEDTIME PRN PRN Reason: Insomnia Last Admin: 07/06/23 20:50 Dose: 6 mg Nicotine (Nicotine 21 Mg Patch.Td24) 21 mg TRANSDERMA DAILY PRN PRN Reason: smoking cessation Nicotine Polacrilex (Nicotine Polacrilex 2 Mg Gum) 4 mg BUCCAL Q2H PRN PRN Reason: Nicotine Cravings Olanzapine (Olanzapine 5 Mg Tablet) 5 mg PO TID PRN PRN Reason: agitation Sertraline HCl (Sertraline Hcl 25 Mg Tablet) 75 mg PO DAILY [facility] Trazodone HCl (Trazodone Hcl 50 Mg Tablet) 50 mg PO BEDTIME MRX1 PRN PRN Reason: Insomnia Home Medications ?Medication ?Instructions ?Recorded ?Confirmed ?Last Taken ?Type clonazepam 0.5 mg tablet 0.5 mg PO DAILY 07/04/23 07/04/23 Unknown History clonazepam 1 mg tablet 1 mg PO BEDTIME 07/04/23 07/04/23 Unknown History divalproex 500 mg tablet,extended 500 mg PO BID 07/04/23 07/04/23 Unknown History release 24 hr (Depakote ER) ibuprofen 600 mg tablet 600 mg PO TID PRN Pain 07/04/23 07/04/23 Unknown History ipratropium 20 mcg-albuterol 100 1 puff inhalation Q6H PRN Adequate 07/04/23 07/04/23 Unknown History mcg/actuation mist for inhalation Ventilation (Combivent Respimat) lamotrigine 150 mg tablet 300 mg PO DAILY 07/04/23 07/04/23 Unknown History levetiracetam 1,000 mg tablet 2,000 mg PO Q12H 07/04/23 07/05/23 Unknown History melatonin 5 mg tablet 5 mg PO BEDTIME PRN Insomnia 07/04/23 07/04/23 Unknown History sertraline 50 mg tablet 50 mg PO DAILY 07/04/23 07/04/23 Unknown History Physical Exam Vital Signs: Vital Signs: Last Vital Signs Temp 97.5 F 07/07/23 07:58 Pulse 53 07/07/23 07:58 Resp 18 07/07/23 07:58 BP 105/59 L 07/07/23 07:58 Pulse Ox 96 07/07/23 07:58 O2 Del Method Room Air 07/07/23 07:58 BMI result Body Mass Index 35.4 Neuro: Other: Normal non focal exam Results Labs 07/04/23 13:57 07/06/23 08:44 Assessment and Plan (1) Epilepsy: Status: Acute Long h/o generalized epilepsy, under control with meds Recom.: Continue Keppra 2000mg bid, Lamotrigine 300mg bid and Depakote 500mg bid. OP f/u with Dr. Ballard after discharge. Stress compliance with meds and alcohol abuse rehab. (2) Bipolar disorder: Status: Acute (3) Alcohol dependence: Status: Acute (4) COPD (chronic obstructive pulmonary disease): Status: Acute Plan 43 yo male, history of bipolar disorder, epilepsy, alcohol use disorder presenting voluntarily for treatment and medication adjustment due to side effects which he believes have caused him to have a decrease in cognition and functioning. Plan: Depakote, Lamictal, Keppra levels, B12,Folate,TSH Collateral contact with PCP, neurology Initiate changes based on this data. Procedures Date of Service Date of Service: 07/07/23
--- NOTE | 2023-07-07 19:21 | HO.PSYCHPN ---
Subjective Subjective Date of Service: 07/07/23 Reason For Visit: Depression Subjective Notes: Conditional Voluntary Healthcare Proxy: No Guardianship: No Medical Problems Affecting Mental Status: No Interim History: Pt reports epilepsy dx in adolesence. CT WNL, EEG indicates sz, tonic clonic Bipolar sx-memory loss, labile, anger, anergy, wanting increase sleep times, poor appetite, poor conc ETOH abuse as well. [employer] pt non compliant with meds and neuro appts. States missed [address] Ballard, actually he has missed over [address] Ballard. Seizure activity noted. Seen by Dr. Jackson who recommends continuation/re-establishment of Lamictal, Keppra, Depakote. Full med review with pt to adjust dosing and compare what he has been taking. Medication Compliance: Yes Side effects from medications: No Attending Groups: Intermittent Review of Systems Acute medical concerns: Yes seizures Medical Review of Systems: unchanged Review of Systems Review of Systems seizures Mental Status Exam Mental Status Exam Patient Appearance: Appropriate Patient Orientation: Person, Place, Time and Situation Level of Consciousness: Alert Patient Behavior: Talkative and Good Eye Contact Mood Description: Apprehensive Affect Description: Apprehensive Patient Cognition Impaired: No Ability to Follow Directions: Good Speech Pattern: Spontaneous Speech Memory Description: Intact Hallucinations: None Delusions: Not Present Thought Process: Rumination Thought Content: positive for Circumstantial and positive for Perseveration Depressive Symptoms: Increased Anxiety, Increased Irritability, Difficulty Sleeping, Increased Fatigue, Low Self Esteem, Loss of Energy and Difficulty Concentrating Judgement: Fair Diagnostics Vital Signs (24Hr): Vital Signs - 24 hr 07/06/23 20:00 07/07/23 07:58 Temperature 97.7 F 97.5 F Pulse Rate 54 53 Respiratory Rate 18 Blood Pressure 114/58 L 105/59 L Pulse Oximetry 96 96 Oxygen Delivery Method Room Air Room Air BMI result Body Mass Index 35.4 Labs 07/04/23 13:57 07/06/23 08:44 Labs: Laboratory Results - last 48 hr 07/06/23 07/07/23 08:44 08:43 Sodium 141 Potassium 4.6 Chloride 104 Carbon Dioxide 28 Anion Gap 14 BUN 23 H Creatinine 0.87 Estim Creat Clear Calc 130.2 Estimated GFR > 60 Fasting Glucose 59 L* Estimat Average Glucose 94 Hemoglobin A1c % 4.9 Calcium 10.0 D Total Bilirubin 0.5 AST 17 ALT 14 Alkaline Phosphatase 63 Total Protein 7.7 Albumin 4.3 Triglycerides 50 Cholesterol 203 H LDL Cholesterol, Calc 132 H HDL Cholesterol 61 Vitamin B12 680 Folate 7.9 TSH 2.43 Valproic Acid 46.0 L Medications Medications Current Medications Acetaminophen (Acetaminophen 325 Mg Tablet) 650 mg PO Q6H PRN PRN Reason: Headache/Pain Mild Scale (1-3) Al Hydroxide/Mg Hydroxide (Magnesium Hydrox/Alum Hydrox 30 Ml Oral.Susp) 30 ml PO Q6H PRN PRN Reason: Heartburn/Nausea Albuterol Sulfate (Albuterol Sulfate (0.083%) 2.5 Mg/3 Ml Vial.Neb) 5 mg INHALE Q20M PRN PRN Reason: Wheezing Clonazepam (Clonazepam 1 Mg Tablet) 1 mg PO BID [facility] Divalproex Sodium (Divalproex Sodium Er 500 Mg Tab.Er.24h) 500 mg PO BID [facility] Last Admin: 07/07/23 08:24 Dose: 500 mg Hydroxyzine HCl (Hydroxyzine Hcl 25 Mg Tablet) 25 mg PO Q6H PRN PRN Reason: Anxiety Last Admin: 07/07/23 08:50 Dose: 25 mg Ibuprofen (Ibuprofen 600 Mg Tablet) 600 mg PO TID PRN PRN Reason: Pain, Moderate(Pain Scale 4-6) Lamotrigine (Lamotrigine 100 Mg Tablet) 300 mg PO DAILY [facility] Last Admin: 07/07/23 08:24 Dose: 300 mg Levetiracetam (Levetiracetam 1,000 Mg Tablet) 2,000 mg PO BID [facility] Last Admin: 07/07/23 08:25 Dose: 2,000 mg Lidocaine (Lidocaine 4 % Patch Adh..Patch) 1 patch TRANSDERMA DAILY [facility]; Protocol Last Admin: 07/07/23 13:38 Dose: 1 patch Magnesium Hydroxide (Milk Of Magnesia 30 Ml Oral.Susp) 30 ml PO DAILY PRN PRN Reason: Constipation Melatonin (Melatonin 3 Mg Tablet) 6 mg PO BEDTIME PRN PRN Reason: Insomnia Last Admin: 07/06/23 20:50 Dose: 6 mg Nicotine (Nicotine 21 Mg Patch.Td24) 21 mg TRANSDERMA DAILY PRN PRN Reason: smoking cessation Nicotine Polacrilex (Nicotine Polacrilex 2 Mg Gum) 4 mg BUCCAL Q2H PRN PRN Reason: Nicotine Cravings Olanzapine (Olanzapine 5 Mg Tablet) 5 mg PO TID PRN PRN Reason: agitation Sertraline HCl (Sertraline Hcl 25 Mg Tablet) 75 mg PO DAILY [facility] Trazodone HCl (Trazodone Hcl 50 Mg Tablet) 50 mg PO BEDTIME MRX1 PRN PRN Reason: Insomnia Allergies Allergies Allergy/AdvReac Type Severity Reaction Status Date / Time erythromycin base Allergy Unknown UNKNOWN Verified 07/04/23 12:49 [Erythromycin Base] Assessment & Plan Assessment & Plan (1) Epilepsy: Status: Acute Code(s): G40.909 - Epilepsy, unspecified, not intractable, without status epilepticus Assessment and Plan: Long h/o generalized epilepsy, under control with meds Recom.: Continue Keppra 2000mg bid, Lamotrigine 300mg bid and Depakote 500mg bid. OP f/u with Dr. Ballard after discharge. Stress compliance with meds and alcohol abuse rehab. (2) Bipolar disorder: Status: Acute Code(s): F31.9 - Bipolar disorder, unspecified (3) Alcohol dependence: Status: Acute Code(s): F10.20 - Alcohol dependence, uncomplicated (4) COPD (chronic obstructive pulmonary disease): Status: Acute Code(s): J44.9 - Chronic obstructive pulmonary disease, unspecified Plan 43 yo male, history of bipolar disorder, epilepsy, alcohol use disorder presenting voluntarily for treatment and medication adjustment due to side effects which he believes have caused him to have a decrease in cognition and functioning. Plan: Depakote, Lamictal, Keppra levels, B12,Folate,TSH Collateral contact with PCP, neurology Initiate changes based on this data. 07/07/23: Increase Klonopin to 1 mg bid Re-establish Lamictal to 300 mg bid. He reports he was taking this dose at home. Increase Sertraline to 75 mg daily Lidocaine patch, Ibuprofen prn for pain. Informed Consent: understands and further education needed Reason for continued inpatient stay Substantial Risk for: rapid decompensation Time Spent With Patient Time: Total time managing care of this patient today ____ minutes.
[2023-07-07 20:00] VITALS: BP 118/52; PULSE 54; RESP 16; TEMP 36.6; O2SAT 98
[2023-07-07] MEDS: clonazePAM 1 MG TABLET PO (21:01)
[2023-07-07] MEDS: Melatonin 3 MG TABLET 6 MG PO (21:01)
[2023-07-08 07:00] VITALS: BMI 36.6
[2023-07-08 08:00] VITALS: BP 114/53; PULSE 58; RESP 16; TEMP 36.7; O2SAT 98
[2023-07-08] MEDS: levETIRAcetam 1,000 MG TABLET 2000 MG PO ×2 (08:30→21:05)
[2023-07-08] MEDS: Sertraline HCL 25 MG TABLET 75 MG PO (08:30)
[2023-07-08] MEDS: lamoTRIgine 100 MG TABLET 300 MG PO ×2 (08:30→21:06)
[2023-07-08] MEDS: Divalproex Sodium ER 500 MG TAB.ER.24H PO ×2 (08:30→21:05)
[2023-07-08] MEDS: clonazePAM 1 MG TABLET PO ×2 (10:36→21:05)
--- NOTE | 2023-07-08 12:17 | P.CNNE_ITS ---
History of Present Illness Data of Consult Service Date: 07/08/23 Primary Care Provider: Matthieu Buenrostro MD [facility] Reason for consult: Seizure 43 years old man with longstanding history of intractable epilepsy with generalized seizures, video EEG monitoring in [facility] in 2010 revealing bilateral spike and wave making him not a candidate for surgical treatment for epilepsy, depression, and alcohol abuse. He used to live in [place] and now has moved to [place] with his brother. He was relatively not compliant with his appointments and probably also medications and had missed numerous appointments in my office. At this time he was admitted on psychiatric floor and this morning had a generalized convulsion. When I saw him he was in his bed without any distress. Review of Systems 2 Review of Systems: He admitted to drinking alcohol and did not have any cold or flu-like illness recently. [facility] Social History Social History Household Members: Family Household Members Other:: brothers Housing: House Do you presently have visiting nurse or other home services: No Alcohol intake: current Alcohol intake frequency: a few times a week Alcohol type: beer and hard liquor Patient Tobacco Use Status: Current someday Tobacco user Tobacco use type: Cigarette Smoked in Last 30 Days: Yes e-Cigarette/Vaping Use: Never Used Patient Interested in Nicotine Replacement: Yes Patient Given Instructions on How to Stop Smoking: No Second Hand Smoke Exposure: No Use of substances other than those prescribed or required for medical reasons: No Currently Displaying Signs/Symptoms of Drug Intoxication Withdrawal: No Any prior treatment program specific to substance use: No Have you been hit, kicked, punched, or otherwise hurt by someone within the past year? If so, by whom?: No Do you feel safe in your current relationship?: No Current Relationship Is there a partner from a previous relationship who is making you feel unsafe now?: No Are you made to feel afraid or neglected: No Advance Directives: No Advance Directives Information Provided: No Do you have thoughts of harming others: None Do you have a plan to hurt others: No Plan Recently lost weight without trying: No How much weight loss: Not applicable Eating poorly because of decreased appetite: No Nutrition screen score: 0 Nutrition Risks: No Nutritional Risk Poor oral hygiene: No Meds Allergies Allergy/AdvReac Type Severity Reaction Status Date / Time erythromycin base Allergy Unknown UNKNOWN Verified 07/04/23 12:49 [Erythromycin Base] Active Medications: Current Medications Acetaminophen (Acetaminophen 325 Mg Tablet) 650 mg PO Q6H PRN PRN Reason: Headache/Pain Mild Scale (1-3) Al Hydroxide/Mg Hydroxide (Magnesium Hydrox/Alum Hydrox 30 Ml Oral.Susp) 30 ml PO Q6H PRN PRN Reason: Heartburn/Nausea Albuterol Sulfate (Albuterol Sulfate (0.083%) 2.5 Mg/3 Ml Vial.Neb) 5 mg INHALE Q20M PRN PRN Reason: Wheezing Clonazepam (Clonazepam 1 Mg Tablet) 1 mg PO BID [facility] Last Admin: 07/08/23 10:36 Dose: 1 mg Divalproex Sodium (Divalproex Sodium Er 500 Mg Tab.Er.24h) 500 mg PO BID [facility] Last Admin: 07/08/23 08:30 Dose: 500 mg Hydroxyzine HCl (Hydroxyzine Hcl 25 Mg Tablet) 25 mg PO Q6H PRN PRN Reason: Anxiety Last Admin: 07/07/23 08:50 Dose: 25 mg Ibuprofen (Ibuprofen 600 Mg Tablet) 600 mg PO TID PRN PRN Reason: Pain, Moderate(Pain Scale 4-6) Last Admin: 07/07/23 21:02 Dose: 600 mg Lamotrigine (Lamotrigine 100 Mg Tablet) 300 mg PO BID [facility] Last Admin: 07/08/23 08:30 Dose: 300 mg Levetiracetam (Levetiracetam 1,000 Mg Tablet) 2,000 mg PO BID [facility] Last Admin: 07/08/23 08:30 Dose: 2,000 mg Lidocaine (Lidocaine 4 % Patch Adh..Patch) 1 patch TRANSDERMA DAILY [facility]; Protocol Last Admin: 07/08/23 08:29 Dose: Not Given Magnesium Hydroxide (Milk Of Magnesia 30 Ml Oral.Susp) 30 ml PO DAILY PRN PRN Reason: Constipation Melatonin (Melatonin 3 Mg Tablet) 6 mg PO BEDTIME PRN PRN Reason: Insomnia Last Admin: 07/07/23 21:01 Dose: 6 mg Nicotine (Nicotine 21 Mg Patch.Td24) 21 mg TRANSDERMA DAILY PRN PRN Reason: smoking cessation Nicotine Polacrilex (Nicotine Polacrilex 2 Mg Gum) 4 mg BUCCAL Q2H PRN PRN Reason: Nicotine Cravings Olanzapine (Olanzapine 5 Mg Tablet) 5 mg PO TID PRN PRN Reason: agitation Sertraline HCl (Sertraline Hcl 25 Mg Tablet) 75 mg PO DAILY [facility] Last Admin: 07/08/23 08:30 Dose: 75 mg Trazodone HCl (Trazodone Hcl 50 Mg Tablet) 50 mg PO BEDTIME MRX1 PRN PRN Reason: Insomnia Home Medications ?Medication ?Instructions ?Recorded ?Confirmed ?Last Taken ?Type clonazepam 0.5 mg tablet 0.5 mg PO DAILY 07/04/23 07/04/23 Unknown History clonazepam 1 mg tablet 1 mg PO BEDTIME 07/04/23 07/04/23 Unknown History divalproex 500 mg tablet,extended 500 mg PO BID 07/04/23 07/04/23 Unknown History release 24 hr (Depakote ER) ibuprofen 600 mg tablet 600 mg PO TID PRN Pain 07/04/23 07/04/23 Unknown History ipratropium 20 mcg-albuterol 100 1 puff inhalation Q6H PRN Adequate 07/04/23 07/04/23 Unknown History mcg/actuation mist for inhalation Ventilation (Combivent Respimat) lamotrigine 150 mg tablet 300 mg PO DAILY 07/04/23 07/04/23 Unknown History levetiracetam 1,000 mg tablet 2,000 mg PO Q12H 07/04/23 07/05/23 Unknown History melatonin 5 mg tablet 5 mg PO BEDTIME PRN Insomnia 07/04/23 07/04/23 Unknown History sertraline 50 mg tablet 50 mg PO DAILY 07/04/23 07/04/23 Unknown History Physical Exam 2 Vital Signs: Vital Signs: Last Vital Signs Temp 98.1 F 07/08/23 08:00 Pulse 58 07/08/23 08:00 Resp 16 07/08/23 08:00 BP 114/53 L 07/08/23 08:00 Pulse Ox 98 07/08/23 08:00 O2 Del Method Room Air 07/08/23 08:00 BMI result Body Mass Index 35.4 Neuro: Other: Somewhat drowsy but able to communicate without difficulty with normal spontaneity, fluency of speech, comprehension and affect. He recognize me right away. Face was symmetrical. There was no obvious focal weakness. Results Labs 07/04/23 13:57 04/30/24 08:44 Labs: Head CT revealed dilated cisterna magnum but otherwise no significant abnormality. Assessment and Plan (1) Intractable epilepsy: Qualifiers: Epilepsy type: generalized idiopathic Status epilepticus: without status epilepticus Qualified Code(s): G40.319 - Generalized idiopathic epilepsy and epileptic syndromes, intractable, without status epilepticus Status: Acute 43 years old man with longstanding history of chronic intractable epilepsy comprised of generalized seizures with video EEG in [facility] in 2010 revealing bilateral spike in wave discharges, chronic behavioral disorder, and probably also alcohol and possible other drug abuse resulting in lack of full compliance with care and medications. He has missed numerous appointments in my office to the point that he was discharged from our office. Seizure control has only been 1 of the issues but during last 5-10 years, behavioral issues have affected him in more significant manner. While taking medicines on regular basis, his seizures were better controlled. His last visit to our office was about a year ago when he was taking levetiracetam 2000 mg twice a day, the valproic acid extended-release 750 mg twice a day, and lamotrigine 300 mg twice a day. For now, my recommendation is to put him back on that regimen. Main issue at this time is behavioral and appropriate medications and therapy. Procedures Date of Service Date of Service: 07/08/23
[2023-07-08] MEDS: Ibuprofen 600 MG TABLET PO ×2 (16:58→22:09)
--- NOTE | 2023-07-08 17:52 | HO.PSYCHPN ---
Subjective Subjective Date of Service: 07/08/23 Reason For Visit: Depression Subjective Notes: Conditional Voluntary Healthcare Proxy: No Guardianship: No Medical Problems Affecting Mental Status: No Interim History: Pt with seizure activity this a.m. Placed on one to one. Depakote level 46/ Keppra / Lamictal levels are pending. Seen by Dr. Ballard who recommends return to previous regime, behavioral interventions, addiction interventions. Pt wanting more med changes today. As several were made on 07/06 and he is re-establishing his anticonvulsant dosages with neurology we will hold today. Virgen held this a.m. for a low measure of blood pressure. Review of Systems Review of Systems seizure Mental Status Exam Mental Status Exam Patient Appearance: Appropriate Patient Orientation: Person, Place, Time and Situation Level of Consciousness: Alert Patient Behavior: Talkative and Good Eye Contact Mood Description: Apprehensive Affect Description: Apprehensive Patient Cognition Impaired: No Ability to Follow Directions: Good Speech Pattern: Spontaneous Speech Memory Description: Intact Hallucinations: None Delusions: Not Present Thought Process: Rumination Thought Content: positive for Circumstantial and positive for Perseveration Depressive Symptoms: Increased Anxiety, Increased Irritability, Difficulty Sleeping, Increased Fatigue, Low Self Esteem, Loss of Energy and Difficulty Concentrating Judgement: Fair Diagnostics Vital Signs (24Hr): Vital Signs - 24 hr 07/07/23 20:00 07/08/23 08:00 Temperature 97.8 F 98.1 F Pulse Rate 54 58 Respiratory Rate 16 16 Blood Pressure 118/52 L 114/53 L Pulse Oximetry 98 98 Oxygen Delivery Method Room Air Room Air BMI result Body Mass Index 36.6 Labs 07/04/23 13:57 07/06/23 08:44 Labs: Laboratory Results - last 48 hr 07/07/23 08:43 Vitamin B12 680 Folate 7.9 TSH 2.43 Valproic Acid 46.0 L Medications Medications Current Medications Acetaminophen (Acetaminophen 325 Mg Tablet) 650 mg PO Q6H PRN PRN Reason: Headache/Pain Mild Scale (1-3) Al Hydroxide/Mg Hydroxide (Magnesium Hydrox/Alum Hydrox 30 Ml Oral.Susp) 30 ml PO Q6H PRN PRN Reason: Heartburn/Nausea Albuterol Sulfate (Albuterol Sulfate (0.083%) 2.5 Mg/3 Ml Vial.Neb) 5 mg INHALE Q20M PRN PRN Reason: Wheezing Clonazepam (Clonazepam 1 Mg Tablet) 1 mg PO BID [facility] Last Admin: 07/08/23 10:36 Dose: 1 mg Divalproex Sodium (Divalproex Sodium Er 500 Mg Tab.Er.24h) 500 mg PO BID [facility] Last Admin: 07/08/23 08:30 Dose: 500 mg Hydroxyzine HCl (Hydroxyzine Hcl 25 Mg Tablet) 25 mg PO Q6H PRN PRN Reason: Anxiety Last Admin: 07/07/23 08:50 Dose: 25 mg Ibuprofen (Ibuprofen 600 Mg Tablet) 600 mg PO TID PRN PRN Reason: Pain, Moderate(Pain Scale 4-6) Last Admin: 07/08/23 16:58 Dose: 600 mg Lamotrigine (Lamotrigine 100 Mg Tablet) 300 mg PO BID [facility] Last Admin: 07/08/23 08:30 Dose: 300 mg Levetiracetam (Levetiracetam 1,000 Mg Tablet) 2,000 mg PO BID [facility] Last Admin: 07/08/23 08:30 Dose: 2,000 mg Lidocaine (Lidocaine 4 % Patch Adh..Patch) 1 patch TRANSDERMA DAILY [facility]; Protocol Last Admin: 07/08/23 08:29 Dose: Not Given Magnesium Hydroxide (Milk Of Magnesia 30 Ml Oral.Susp) 30 ml PO DAILY PRN PRN Reason: Constipation Melatonin (Melatonin 3 Mg Tablet) 6 mg PO BEDTIME PRN PRN Reason: Insomnia Last Admin: 07/07/23 21:01 Dose: 6 mg Nicotine (Nicotine 21 Mg Patch.Td24) 21 mg TRANSDERMA DAILY PRN PRN Reason: smoking cessation Nicotine Polacrilex (Nicotine Polacrilex 2 Mg Gum) 4 mg BUCCAL Q2H PRN PRN Reason: Nicotine Cravings Olanzapine (Olanzapine 5 Mg Tablet) 5 mg PO TID PRN PRN Reason: agitation Sertraline HCl (Sertraline Hcl 25 Mg Tablet) 75 mg PO DAILY [facility] Last Admin: 07/08/23 08:30 Dose: 75 mg Trazodone HCl (Trazodone Hcl 50 Mg Tablet) 50 mg PO BEDTIME MRX1 PRN PRN Reason: Insomnia Allergies Allergies Allergy/AdvReac Type Severity Reaction Status Date / Time erythromycin base Allergy Unknown UNKNOWN Verified 07/04/23 12:49 [Erythromycin Base] Assessment & Plan Assessment & Plan (1) Intractable epilepsy: Qualifiers: Epilepsy type: generalized idiopathic Status epilepticus: without status epilepticus Qualified Code(s): G40.319 - Generalized idiopathic epilepsy and epileptic syndromes, intractable, without status epilepticus Status: Acute Code(s): G40.919 - Epilepsy, unspecified, intractable, without status epilepticus Assessment and Plan: 43 years old man with longstanding history of chronic intractable epilepsy comprised of generalized seizures with video EEG in [facility] in 2010 revealing bilateral spike in wave discharges, chronic behavioral disorder, and probably also alcohol and possible other drug abuse resulting in lack of full compliance with care and medications. He has missed numerous appointments in my office to the point that he was discharged from our office. Seizure control has only been 1 of the issues but during last 5-10 years, behavioral issues have affected him in more significant manner. While taking medicines on regular basis, his seizures were better controlled. His last visit to our office was about a year ago when he was taking levetiracetam 2000 mg twice a day, the valproic acid extended-release 750 mg twice a day, and lamotrigine 300 mg twice a day. For now, my recommendation is to put him back on that regimen. Main issue at this time is behavioral and appropriate medications and therapy. Plan 07/08/23 One to one YURI and Double Stranded DNA on 07/[address] Ballard. 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
[2023-07-08 20:00] VITALS: BP 115/56; PULSE 58; TEMP 36; O2SAT 96
[2023-07-08] MEDS: Melatonin 3 MG TABLET 6 MG PO (21:07)
[2023-07-09 08:00] VITALS: BP 110/65; PULSE 65; RESP 16; TEMP 36.4; O2SAT 98
[2023-07-09] MEDS: Divalproex Sodium ER 500 MG TAB.ER.24H PO ×2 (08:38→20:55)
[2023-07-09] MEDS: Sertraline HCL 25 MG TABLET 75 MG PO (08:38)
[2023-07-09] MEDS: levETIRAcetam 1,000 MG TABLET 2000 MG PO ×2 (08:38→20:55)
[2023-07-09] MEDS: clonazePAM 1 MG TABLET PO ×2 (08:39→20:55)
[2023-07-09] MEDS: lamoTRIgine 100 MG TABLET 300 MG PO ×2 (08:39→20:55)
[2023-07-09] MEDS: Ibuprofen 600 MG TABLET PO (08:44)
[2023-07-09] MEDS: hydrOXYzine HCL 25 MG TABLET PO (13:55)
--- NOTE | 2023-07-09 15:05 | HO.PSYCHPN ---
Subjective Subjective Date of Service: 07/09/23 Reason For Visit: Depression Subjective Notes: Conditional Voluntary Healthcare Proxy: No Guardianship: No Medical Problems Affecting Mental Status: No Interim History: Pt changed from one to one to five minute checks. Tolerating regime, appears clearer. No seizure activity noted. Tolerating Sertraline. Discussed with pt that our first priority tis to have seizures stabilized before we do further work on mood. He agreed. Medication Compliance: Yes Side effects from medications: No Attending Groups: Intermittent Review of Systems Acute medical concerns: No Medical Review of Systems: unchanged Review of Systems Review of Systems Reports feeling tired Mental Status Exam Mental Status Exam Patient Appearance: Appropriate Patient Orientation: Person, Place, Time and Situation Level of Consciousness: Alert Patient Behavior: Talkative and Good Eye Contact Mood Description: Apprehensive Affect Description: Apprehensive Patient Cognition Impaired: No Ability to Follow Directions: Good Speech Pattern: Spontaneous Speech Memory Description: Intact Hallucinations: None Delusions: Not Present Thought Process: Rumination Thought Content: positive for Circumstantial and positive for Perseveration Depressive Symptoms: Increased Anxiety, Increased Irritability, Difficulty Sleeping, Increased Fatigue, Low Self Esteem, Loss of Energy and Difficulty Concentrating Judgement: Fair Diagnostics Vital Signs (24Hr): Vital Signs - 24 hr 07/08/23 20:00 07/09/23 08:00 Temperature 96.8 F 97.6 F Pulse Rate 58 65 Respiratory Rate 16 Blood Pressure 115/56 L 110/65 Pulse Oximetry 96 98 Oxygen Delivery Method Room Air Room Air BMI result Body Mass Index 36.6 Labs 07/04/23 13:57 07/06/23 08:44 Medications Medications Current Medications Acetaminophen (Acetaminophen 325 Mg Tablet) 650 mg PO Q6H PRN PRN Reason: Headache/Pain Mild Scale (1-3) Al Hydroxide/Mg Hydroxide (Magnesium Hydrox/Alum Hydrox 30 Ml Oral.Susp) 30 ml PO Q6H PRN PRN Reason: Heartburn/Nausea Albuterol Sulfate (Albuterol Sulfate (0.083%) 2.5 Mg/3 Ml Vial.Neb) 5 mg INHALE Q20M PRN PRN Reason: Wheezing Clonazepam (Clonazepam 1 Mg Tablet) 1 mg PO BID [facility] Last Admin: 07/09/23 08:39 Dose: 1 mg Divalproex Sodium (Divalproex Sodium Er 500 Mg Tab.Er.24h) 500 mg PO BID [facility] Last Admin: 07/09/23 08:38 Dose: 500 mg Hydroxyzine HCl (Hydroxyzine Hcl 25 Mg Tablet) 25 mg PO Q6H PRN PRN Reason: Anxiety Last Admin: 07/09/23 13:55 Dose: 25 mg Ibuprofen (Ibuprofen 600 Mg Tablet) 600 mg PO TID PRN PRN Reason: Pain, Moderate(Pain Scale 4-6) Last Admin: 07/09/23 08:44 Dose: 600 mg Lamotrigine (Lamotrigine 100 Mg Tablet) 300 mg PO BID [facility] Last Admin: 07/09/23 08:39 Dose: 300 mg Levetiracetam (Levetiracetam 1,000 Mg Tablet) 2,000 mg PO BID [facility] Last Admin: 07/09/23 08:38 Dose: 2,000 mg Lidocaine (Lidocaine 4 % Patch Adh..Patch) 1 patch TRANSDERMA DAILY [facility]; Protocol Last Admin: 07/09/23 08:45 Dose: Not Given Magnesium Hydroxide (Milk Of Magnesia 30 Ml Oral.Susp) 30 ml PO DAILY PRN PRN Reason: Constipation Melatonin (Melatonin 3 Mg Tablet) 6 mg PO BEDTIME PRN PRN Reason: Insomnia Last Admin: 07/08/23 21:07 Dose: 6 mg Nicotine (Nicotine 21 Mg Patch.Td24) 21 mg TRANSDERMA DAILY PRN PRN Reason: smoking cessation Nicotine Polacrilex (Nicotine Polacrilex 2 Mg Gum) 4 mg BUCCAL Q2H PRN PRN Reason: Nicotine Cravings Olanzapine (Olanzapine 5 Mg Tablet) 5 mg PO TID PRN PRN Reason: agitation Sertraline HCl (Sertraline Hcl 25 Mg Tablet) 75 mg PO DAILY [facility] Last Admin: 07/09/23 08:38 Dose: 75 mg Trazodone HCl (Trazodone Hcl 50 Mg Tablet) 50 mg PO BEDTIME MRX1 PRN PRN Reason: Insomnia Allergies Allergies Allergy/AdvReac Type Severity Reaction Status Date / Time erythromycin base Allergy Unknown UNKNOWN Verified 07/04/23 12:49 [Erythromycin Base] Assessment & Plan Assessment & Plan (1) Intractable epilepsy: Qualifiers: Epilepsy type: generalized idiopathic Status epilepticus: without status epilepticus Qualified Code(s): G40.319 - Generalized idiopathic epilepsy and epileptic syndromes, intractable, without status epilepticus Status: Acute Code(s): G40.919 - Epilepsy, unspecified, intractable, without status epilepticus Assessment and Plan: 43 years old man with longstanding history of chronic intractable epilepsy comprised of generalized seizures with video EEG in [facility] in 2010 revealing bilateral spike in wave discharges, chronic behavioral disorder, and probably also alcohol and possible other drug abuse resulting in lack of full compliance with care and medications. He has missed numerous appointments in my office to the point that he was discharged from our office. Seizure control has only been 1 of the issues but during last 5-10 years, behavioral issues have affected him in more significant manner. While taking medicines on regular basis, his seizures were better controlled. His last visit to our office was about a year ago when he was taking levetiracetam 2000 mg twice a day, the valproic acid extended-release 750 mg twice a day, and lamotrigine 300 mg twice a day. For now, my recommendation is to put him back on that regimen. Main issue at this time is behavioral and appropriate medications and therapy. Plan 07/08/23 One to one YURI and Double Stranded DNA on 07/[address] Ballard. 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
[2023-07-09 20:00] VITALS: BP 119/61; PULSE 54; RESP 18; TEMP 36.8; O2SAT 97
[2023-07-09] MEDS: Melatonin 3 MG TABLET 6 MG PO (20:55)
[2023-07-10 07:53] VITALS: BP 107/55; PULSE 50; RESP 16; TEMP 36.4; O2SAT 97
[2023-07-10] MEDS: levETIRAcetam 1,000 MG TABLET 2000 MG PO ×2 (08:23→20:17)
[2023-07-10] MEDS: clonazePAM 1 MG TABLET PO ×2 (08:23→20:17)
[2023-07-10] MEDS: Divalproex Sodium ER 500 MG TAB.ER.24H PO ×2 (08:23→20:17)
[2023-07-10] MEDS: lamoTRIgine 100 MG TABLET 300 MG PO ×2 (08:24→20:17)
[2023-07-10] MEDS: Sertraline HCL 25 MG TABLET 75 MG PO (08:24)
[2023-07-10] MEDS: Ibuprofen 600 MG TABLET PO ×3 (08:32→21:58)
[2023-07-10] MEDS: hydrOXYzine HCL 25 MG TABLET PO (13:32)
--- NOTE | 2023-07-10 15:31 | P.PNPSI_ITS ---
Subjective Subjective Date of Service: 07/10/23 Reason For Visit: Depression Interim History: met with patient. Discussed with Nursing. Mood is getting better. Last seizures were on 07/06 and 07/07. noted lamotrigine level slightly elevated at 16. clinically doing okay and will therefore not make any adjustments. Patient reports he is doing better. Sleep and appetite improved. Still has intermittent anxiety and depression but getting less. Denies SI or psychosis. Reviewed medications including hydroxyzine, which is overall a low daily dose when needed and does not appear to have any correlation regarding seizures. Medication Compliance: Yes Side effects from medications: No Attending Groups: Yes Review of Systems Acute medical concerns: No Review of Systems Review of Systems Yes all other systems are reviewed and are negative Mental Status Exam Mental Status Exam Patient Appearance: Appropriate Patient Orientation: Person, Place, Time and Situation Level of Consciousness: Alert Patient Behavior: Talkative and Good Eye Contact Mood Description: Apprehensive Affect Description: Apprehensive Patient Cognition Impaired: No Ability to Follow Directions: Good Speech Pattern: Spontaneous Speech Memory Description: Intact Hallucinations: None Delusions: Not Present Thought Content: positive for Circumstantial and positive for Perseveration Depressive Symptoms: Increased Anxiety, Increased Irritability, Difficulty Sleeping, Increased Fatigue, Low Self Esteem, Loss of Energy and Difficulty Concentrating Judgement: Fair Diagnostics Vital Signs (24Hr): Vital Signs - 24 hr 07/09/23 20:00 07/10/23 07:53 Temperature 98.3 F 97.6 F Pulse Rate 54 50 Respiratory Rate 18 16 Blood Pressure 119/61 107/55 L Pulse Oximetry 97 97 Oxygen Delivery Method Room Air Room Air BMI result Body Mass Index 36.6 Labs 07/04/23 13:57 07/06/23 08:44 Medications Medications Current Medications Acetaminophen (Acetaminophen 325 Mg Tablet) 650 mg PO Q6H PRN PRN Reason: Headache/Pain Mild Scale (1-3) Al Hydroxide/Mg Hydroxide (Magnesium Hydrox/Alum Hydrox 30 Ml Oral.Susp) 30 ml PO Q6H PRN PRN Reason: Heartburn/Nausea Albuterol Sulfate (Albuterol Sulfate (0.083%) 2.5 Mg/3 Ml Vial.Neb) 5 mg INHALE Q20M PRN PRN Reason: Wheezing Clonazepam (Clonazepam 1 Mg Tablet) 1 mg PO BID [facility] Last Admin: 07/10/23 08:23 Dose: 1 mg Divalproex Sodium (Divalproex Sodium Er 500 Mg Tab.Er.24h) 500 mg PO BID [facility] Last Admin: 07/10/23 08:23 Dose: 500 mg Hydroxyzine HCl (Hydroxyzine Hcl 25 Mg Tablet) 25 mg PO Q6H PRN PRN Reason: Anxiety Last Admin: 07/10/23 13:32 Dose: 25 mg Ibuprofen (Ibuprofen 600 Mg Tablet) 600 mg PO TID PRN PRN Reason: Pain, Moderate(Pain Scale 4-6) Last Admin: 07/10/23 14:33 Dose: 600 mg Lamotrigine (Lamotrigine 100 Mg Tablet) 300 mg PO BID [facility] Last Admin: 07/10/23 08:24 Dose: 300 mg Levetiracetam (Levetiracetam 1,000 Mg Tablet) 2,000 mg PO BID [facility] Last Admin: 07/10/23 08:23 Dose: 2,000 mg Lidocaine (Lidocaine 4 % Patch Adh..Patch) 1 patch TRANSDERMA DAILY [facility]; Protocol Last Admin: 07/10/23 08:26 Dose: Not Given Magnesium Hydroxide (Milk Of Magnesia 30 Ml Oral.Susp) 30 ml PO DAILY PRN PRN Reason: Constipation Melatonin (Melatonin 3 Mg Tablet) 6 mg PO BEDTIME PRN PRN Reason: Insomnia Last Admin: 07/09/23 20:55 Dose: 6 mg Nicotine (Nicotine 21 Mg Patch.Td24) 21 mg TRANSDERMA DAILY PRN PRN Reason: smoking cessation Nicotine Polacrilex (Nicotine Polacrilex 2 Mg Gum) 4 mg BUCCAL Q2H PRN PRN Reason: Nicotine Cravings Olanzapine (Olanzapine 5 Mg Tablet) 5 mg PO TID PRN PRN Reason: agitation Sertraline HCl (Sertraline Hcl 25 Mg Tablet) 75 mg PO DAILY [facility] Last Admin: 07/10/23 08:24 Dose: 75 mg Trazodone HCl (Trazodone Hcl 50 Mg Tablet) 50 mg PO BEDTIME MRX1 PRN PRN Reason: Insomnia Allergies Allergies Allergy/AdvReac Type Severity Reaction Status Date / Time erythromycin base Allergy Unknown UNKNOWN Verified 07/04/23 12:49 [Erythromycin Base] Assessment & Plan Assessment & Plan (1) Intractable epilepsy: Qualifiers: Epilepsy type: generalized idiopathic Status epilepticus: without status epilepticus Qualified Code(s): G40.319 - Generalized idiopathic epilepsy and epileptic syndromes, intractable, without status epilepticus Status: Acute Code(s): G40.919 - Epilepsy, unspecified, intractable, without status epilepticus Assessment and Plan: 43 years old man with longstanding history of chronic intractable epilepsy comprised of generalized seizures with video EEG in [facility] in 2010 revealing bilateral spike in wave discharges, chronic behavioral disorder, and probably also alcohol and possible other drug abuse resulting in lack of full compliance with care and medications. He has missed numerous appointments in my office to the point that he was discharged from our office. Seizure control has only been 1 of the issues but during last 5-10 years, behavioral issues have affected him in more significant manner. While taking medicines on regular basis, his seizures were better controlled. His last visit to our office was about a year ago when he was taking levetiracetam 2000 mg twice a day, the valproic acid extended-release 750 mg twice a day, and lamotrigine 300 mg twice a day. For now, my recommendation is to put him back on that regimen. Main issue at this time is behavioral and appropriate medications and therapy. Plan 07/08/23 One to one YURI and Double Stranded DNA on 07/[address] Ballard. 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
[2023-07-10 16:43] LABS: Lamotrigine Lamictal 16.1 mcg/mL (2.5-15.0)
--- NOTE | 2023-07-10 16:55 | PC.NURSE ---
Covering provider Dr. Gongora notified of pt's elevated Lamotrigine level. No new orders at this time.
[2023-07-10 20:00] VITALS: BP 118/57; PULSE 62; RESP 16; TEMP 36.7; O2SAT 97
[2023-07-10] MEDS: Melatonin 3 MG TABLET 6 MG PO (20:17)
[2023-07-11 01:34] LABS: Levetiracetam Keppra 97.6 mcg/mL (6.0-46.0)
[2023-07-11 07:58] VITALS: BP 117/53; PULSE 55; RESP 16; TEMP 36.4; O2SAT 98
[2023-07-11] MEDS: levETIRAcetam 1,000 MG TABLET 2000 MG PO ×2 (08:29→21:05)
[2023-07-11] MEDS: lamoTRIgine 100 MG TABLET 300 MG PO ×2 (08:29→21:06)
[2023-07-11] MEDS: clonazePAM 1 MG TABLET PO ×2 (08:29→21:07)
[2023-07-11] MEDS: Sertraline HCL 25 MG TABLET 75 MG PO (08:29)
[2023-07-11] MEDS: Divalproex Sodium ER 500 MG TAB.ER.24H PO ×2 (08:30→21:06)
[2023-07-11] MEDS: Ibuprofen 600 MG TABLET PO ×2 (08:33→21:04)
--- NOTE | 2023-07-11 10:40 | HO.PSYCHPN ---
Subjective Subjective Date of Service: 07/11/23 Reason For Visit: Depression Interim History: Met with patient. Discussed with Nursing. Patient continues to report improvement. Supported by staff. Still hearing voices at times, but reports they are manageable. Is feeling tired today. Sleeping well. No medication concerns. Side effects from medications: No Attending Groups: Intermittent Review of Systems Acute medical concerns: No Review of Systems Review of Systems Nothing new Mental Status Exam Mental Status Exam Patient Appearance: Appropriate Patient Orientation: Person, Place, Time and Situation Level of Consciousness: Alert Patient Behavior: Talkative and Good Eye Contact Mood Description: Apprehensive Affect Description: Apprehensive Patient Cognition Impaired: No Ability to Follow Directions: Good Speech Pattern: Spontaneous Speech Memory Description: Intact Perceptual Disturbances: Hallucinations Diagnostics Vital Signs (24Hr): Vital Signs - 24 hr 07/10/23 20:00 07/11/23 07:58 Temperature 98.0 F 97.5 F Pulse Rate 62 55 Respiratory Rate 16 16 Blood Pressure 118/57 L 117/53 L Pulse Oximetry 97 98 Oxygen Delivery Method Room Air Room Air BMI result Body Mass Index 36.6 Labs 07/04/23 13:57 07/06/23 08:44 Labs: Laboratory Results - last 48 hr 07/07/23 08:43 Lamotrigine 16.1 H Levetiracetam 97.6 H Medications Medications Current Medications Acetaminophen (Acetaminophen 325 Mg Tablet) 650 mg PO Q6H PRN PRN Reason: Headache/Pain Mild Scale (1-3) Al Hydroxide/Mg Hydroxide (Magnesium Hydrox/Alum Hydrox 30 Ml Oral.Susp) 30 ml PO Q6H PRN PRN Reason: Heartburn/Nausea Albuterol Sulfate (Albuterol Sulfate (0.083%) 2.5 Mg/3 Ml Vial.Neb) 5 mg INHALE Q20M PRN PRN Reason: Wheezing Clonazepam (Clonazepam 1 Mg Tablet) 1 mg PO BID [facility] Last Admin: 07/11/23 08:29 Dose: 1 mg Divalproex Sodium (Divalproex Sodium Er 500 Mg Tab.Er.24h) 500 mg PO BID [facility] Last Admin: 07/11/23 08:30 Dose: 500 mg Hydroxyzine HCl (Hydroxyzine Hcl 25 Mg Tablet) 25 mg PO Q6H PRN PRN Reason: Anxiety Last Admin: 07/10/23 13:32 Dose: 25 mg Ibuprofen (Ibuprofen 600 Mg Tablet) 600 mg PO TID PRN PRN Reason: Pain, Moderate(Pain Scale 4-6) Last Admin: 07/11/23 08:33 Dose: 600 mg Lamotrigine (Lamotrigine 100 Mg Tablet) 300 mg PO BID [facility] Last Admin: 07/11/23 08:29 Dose: 300 mg Levetiracetam (Levetiracetam 1,000 Mg Tablet) 2,000 mg PO BID [facility] Last Admin: 07/11/23 08:29 Dose: 2,000 mg Lidocaine (Lidocaine 4 % Patch Adh..Patch) 1 patch TRANSDERMA DAILY [facility]; Protocol Last Admin: 07/11/23 08:34 Dose: Not Given Magnesium Hydroxide (Milk Of Magnesia 30 Ml Oral.Susp) 30 ml PO DAILY PRN PRN Reason: Constipation Melatonin (Melatonin 3 Mg Tablet) 6 mg PO BEDTIME PRN PRN Reason: Insomnia Last Admin: 07/10/23 20:17 Dose: 6 mg Nicotine (Nicotine 21 Mg Patch.Td24) 21 mg TRANSDERMA DAILY PRN PRN Reason: smoking cessation Nicotine Polacrilex (Nicotine Polacrilex 2 Mg Gum) 4 mg BUCCAL Q2H PRN PRN Reason: Nicotine Cravings Olanzapine (Olanzapine 5 Mg Tablet) 5 mg PO TID PRN PRN Reason: agitation Sertraline HCl (Sertraline Hcl 25 Mg Tablet) 75 mg PO DAILY [facility] Last Admin: 07/11/23 08:29 Dose: 75 mg Trazodone HCl (Trazodone Hcl 50 Mg Tablet) 50 mg PO BEDTIME MRX1 PRN PRN Reason: Insomnia Allergies Allergies Allergy/AdvReac Type Severity Reaction Status Date / Time erythromycin base Allergy Unknown UNKNOWN Verified 07/04/23 12:49 [Erythromycin Base] Assessment & Plan Assessment & Plan (1) Intractable epilepsy: Qualifiers: Epilepsy type: generalized idiopathic Status epilepticus: without status epilepticus Qualified Code(s): G40.319 - Generalized idiopathic epilepsy and epileptic syndromes, intractable, without status epilepticus Status: Acute Code(s): G40.919 - Epilepsy, unspecified, intractable, without status epilepticus Assessment and Plan: 43 years old man with longstanding history of chronic intractable epilepsy comprised of generalized seizures with video EEG in [facility] in 2010 revealing bilateral spike in wave discharges, chronic behavioral disorder, and probably also alcohol and possible other drug abuse resulting in lack of full compliance with care and medications. He has missed numerous appointments in my office to the point that he was discharged from our office. Seizure control has only been 1 of the issues but during last 5-10 years, behavioral issues have affected him in more significant manner. While taking medicines on regular basis, his seizures were better controlled. His last visit to our office was about a year ago when he was taking levetiracetam 2000 mg twice a day, the valproic acid extended-release 750 mg twice a day, and lamotrigine 300 mg twice a day. For now, my recommendation is to put him back on that regimen. Main issue at this time is behavioral and appropriate medications and therapy. Plan 07/08/23 One to one YURI and Double Stranded DNA on 07/[address] Ballard. 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
[2023-07-11 20:00] VITALS: BP 129/60; PULSE 61; TEMP 36.4; O2SAT 95
[2023-07-11] MEDS: Melatonin 3 MG TABLET 6 MG PO (21:06)
[2023-07-12 08:35] VITALS: BP 122/59; PULSE 51; RESP 16; TEMP 36.4; O2SAT 97
[2023-07-12] MEDS: Divalproex Sodium ER 500 MG TAB.ER.24H PO ×2 (08:38→20:55)
[2023-07-12] MEDS: lamoTRIgine 100 MG TABLET 300 MG PO ×2 (08:38→20:56)
[2023-07-12] MEDS: clonazePAM 1 MG TABLET PO ×2 (08:38→20:54)
[2023-07-12] MEDS: levETIRAcetam 1,000 MG TABLET 2000 MG PO ×2 (08:38→20:55)
[2023-07-12] MEDS: Sertraline HCL 25 MG TABLET 75 MG PO (08:38)
[2023-07-12] MEDS: Ibuprofen 600 MG TABLET PO ×2 (08:43→20:56)
--- NOTE | 2023-07-12 10:15 | HO.PSYCHPN ---
Subjective Subjective Date of Service: 07/12/23 Reason For Visit: Depression Subjective Notes: Conditional Voluntary Healthcare Proxy: No Guardianship: No Medical Problems Affecting Mental Status: No Interim History: Pt reports he finds hydroxyzine very helpful for sx mgt. Reports no further seizure activity. Believes that Depakote causes tremor and asks if we may taper this. Discussed neuro referral-pt prefers we discuss with Dr. Buenrostro. Denies sx of concern today, Even my brother thinks I sound better. Medication Compliance: Yes Side effects from medications: No Attending Groups: Intermittent Review of Systems Acute medical concerns: No Medical Review of Systems: unchanged Mental Status Exam Mental Status Exam Patient Appearance: Appropriate Patient Orientation: Person, Place, Time and Situation Level of Consciousness: Alert Patient Behavior: Talkative and Good Eye Contact Mood Description: Apprehensive Affect Description: Apprehensive Patient Cognition Impaired: No Ability to Follow Directions: Good Speech Pattern: Spontaneous Speech Memory Description: Intact Perceptual Disturbances: Hallucinations Diagnostics Vital Signs (24Hr): Vital Signs - 24 hr 07/11/23 20:00 07/12/23 08:35 Temperature 97.6 F 97.6 F Pulse Rate 61 51 Respiratory Rate 16 Blood Pressure 129/60 122/59 L Pulse Oximetry 95 97 Oxygen Delivery Method Room Air Room Air BMI result Body Mass Index 36.6 Labs 07/04/23 13:57 07/06/23 08:44 Labs: Laboratory Results - last 48 hr 07/07/23 08:43 Lamotrigine 16.1 H Levetiracetam 97.6 H Medications Medications Current Medications Acetaminophen (Acetaminophen 325 Mg Tablet) 650 mg PO Q6H PRN PRN Reason: Headache/Pain Mild Scale (1-3) Al Hydroxide/Mg Hydroxide (Magnesium Hydrox/Alum Hydrox 30 Ml Oral.Susp) 30 ml PO Q6H PRN PRN Reason: Heartburn/Nausea Albuterol Sulfate (Albuterol Sulfate (0.083%) 2.5 Mg/3 Ml Vial.Neb) 5 mg INHALE Q20M PRN PRN Reason: Wheezing Clonazepam (Clonazepam 1 Mg Tablet) 1 mg PO BID [facility] Last Admin: 07/12/23 08:38 Dose: 1 mg Divalproex Sodium (Divalproex Sodium Er 500 Mg Tab.Er.24h) 500 mg PO BID [facility] Last Admin: 05/06/24 08:38 Dose: 500 mg Hydroxyzine HCl (Hydroxyzine Hcl 25 Mg Tablet) 25 mg PO Q6H PRN PRN Reason: Anxiety Last Admin: 07/10/23 13:32 Dose: 25 mg Ibuprofen (Ibuprofen 600 Mg Tablet) 600 mg PO TID PRN PRN Reason: Pain, Moderate(Pain Scale 4-6) Last Admin: 07/12/23 08:43 Dose: 600 mg Lamotrigine (Lamotrigine 100 Mg Tablet) 300 mg PO BID [facility] Last Admin: 07/12/23 08:38 Dose: 300 mg Levetiracetam (Levetiracetam 1,000 Mg Tablet) 2,000 mg PO BID [facility] Last Admin: 07/12/23 08:38 Dose: 2,000 mg Lidocaine (Lidocaine 4 % Patch Adh..Patch) 1 patch TRANSDERMA DAILY [facility]; Protocol Last Admin: 07/12/23 08:39 Dose: Not Given Magnesium Hydroxide (Milk Of Magnesia 30 Ml Oral.Susp) 30 ml PO DAILY PRN PRN Reason: Constipation Melatonin (Melatonin 3 Mg Tablet) 6 mg PO BEDTIME PRN PRN Reason: Insomnia Last Admin: 07/11/23 21:06 Dose: 6 mg Nicotine (Nicotine 21 Mg Patch.Td24) 21 mg TRANSDERMA DAILY PRN PRN Reason: smoking cessation Nicotine Polacrilex (Nicotine Polacrilex 2 Mg Gum) 4 mg BUCCAL Q2H PRN PRN Reason: Nicotine Cravings Olanzapine (Olanzapine 5 Mg Tablet) 5 mg PO TID PRN PRN Reason: agitation Sertraline HCl (Sertraline Hcl 25 Mg Tablet) 75 mg PO DAILY [facility] Last Admin: 07/12/23 08:38 Dose: 75 mg Trazodone HCl (Trazodone Hcl 50 Mg Tablet) 50 mg PO BEDTIME MRX1 PRN PRN Reason: Insomnia Allergies Allergies Allergy/AdvReac Type Severity Reaction Status Date / Time erythromycin base Allergy Unknown UNKNOWN Verified 07/04/23 12:49 [Erythromycin Base] Assessment & Plan Assessment & Plan (1) Intractable epilepsy: Qualifiers: Epilepsy type: generalized idiopathic Status epilepticus: without status epilepticus Qualified Code(s): G40.319 - Generalized idiopathic epilepsy and epileptic syndromes, intractable, without status epilepticus Status: Acute Code(s): G40.919 - Epilepsy, unspecified, intractable, without status epilepticus Assessment and Plan: 43 years old man with longstanding history of chronic intractable epilepsy comprised of generalized seizures with video EEG in [facility] in 2010 revealing bilateral spike in wave discharges, chronic behavioral disorder, and probably also alcohol and possible other drug abuse resulting in lack of full compliance with care and medications. He has missed numerous appointments in my office to the point that he was discharged from our office. Seizure control has only been 1 of the issues but during last 5-10 years, behavioral issues have affected him in more significant manner. While taking medicines on regular basis, his seizures were better controlled. His last visit to our office was about a year ago when he was taking levetiracetam 2000 mg twice a day, the valproic acid extended-release 750 mg twice a day, and lamotrigine 300 mg twice a day. For now, my recommendation is to put him back on that regimen. Main issue at this time is behavioral and appropriate medications and therapy. Plan 07/08/23 One to one YURI and Double Stranded DNA on 07/[address] Ballard. Continue Lamictal-pt reports compliance [employer] on current dose Continue Keppra-pt reports compliance [employer] on current dose Continue Depakote-pt non compliant with this [employer] 07/09/23 Continue treatment Tolerating Sertraline at 75 mg 07/10/2023: No changes 07/11/2023: No changes 07/12/23: Decrease Depakote ER to 250 mg a.m. 500 mg h.s. Patient educated on: medication risk/benefits and therapeutic strategies Informed Consent: understands and further education needed Reason for continued inpatient stay Substantial Risk for: med/psych decompensation Time Spent With Patient Time: Total time managing care of this patient today ____ minutes.
[2023-07-12] MEDS: hydrOXYzine HCL 25 MG TABLET PO (10:35)
[2023-07-12 20:00] VITALS: BP 122/60; PULSE 60; TEMP 36.8; O2SAT 95
[2023-07-12] MEDS: Melatonin 3 MG TABLET 6 MG PO (20:54)
[2023-07-13 08:00] VITALS: BP 111/60; PULSE 52; RESP 16; TEMP 36.4; O2SAT 97
[2023-07-13] MEDS: Ibuprofen 600 MG TABLET PO ×2 (08:24→20:34)
[2023-07-13] MEDS: Sertraline HCL 25 MG TABLET 75 MG PO (08:24)
[2023-07-13] MEDS: Divalproex Sodium ER 250 MG TAB.ER.24H PO (08:25)
[2023-07-13] MEDS: lamoTRIgine 100 MG TABLET 300 MG PO ×2 (08:25→20:30)
[2023-07-13] MEDS: levETIRAcetam 1,000 MG TABLET 2000 MG PO ×2 (08:25→20:29)
[2023-07-13] MEDS: clonazePAM 1 MG TABLET PO ×2 (08:25→20:30)
--- NOTE | 2023-07-13 10:27 | P.PNPSI_ITS ---
Subjective Subjective Date of Service: 07/13/23 Reason For Visit: Depression Subjective Notes: Conditional Voluntary Healthcare Proxy: No Guardianship: No Medical Problems Affecting Mental Status: No Interim History: Met with pt and Magdalena Chavarria LCSW to discuss aftercare planning, continuing with [facility], PCP opinion of neuro referral. Message left for PCP office to discuss these as well. Pt has appt 07/26 with PCP. He is interested in psychiatric care with [facility] to coordinate with PCP. Pt also asked about VNA-he will consider. Reports some daytime napping. Review of med levels with pt, Valproate-46, Lamictal-16.1, Keppra-97.6. Discussed ongoing Depakote tapering as pt believes this causes tremor, and Keppra-dosing has been stable and pt has been compliant. (BUN 23, Creat 0.87, GFR >60). Continues to report positive benefit from hydroxyine. Medication Compliance: Yes Side effects from medications: No Attending Groups: Intermittent Review of Systems Acute medical concerns: No Medical Review of Systems: unchanged Review of Systems Review of Systems Yes all other systems are reviewed and are negative Mental Status Exam Mental Status Exam Patient Appearance: Appropriate Patient Orientation: Person, Place, Time and Situation Level of Consciousness: Alert Patient Behavior: Talkative and Good Eye Contact Mood Description: Apprehensive Affect Description: Apprehensive Patient Cognition Impaired: No Ability to Follow Directions: Good Speech Pattern: Spontaneous Speech Memory Description: Intact Perceptual Disturbances: Hallucinations Diagnostics Vital Signs (24Hr): Vital Signs - 24 hr 07/12/23 20:00 07/13/23 08:00 Temperature 98.2 F 97.6 F Pulse Rate 60 52 Respiratory Rate 16 Blood Pressure 122/60 111/60 Pulse Oximetry 95 97 Oxygen Delivery Method Room Air Room Air BMI result Body Mass Index 36.6 Labs 07/04/23 13:57 07/06/23 08:44 Medications Medications Current Medications Acetaminophen (Acetaminophen 325 Mg Tablet) 650 mg PO Q6H PRN PRN Reason: Headache/Pain Mild Scale (1-3) Al Hydroxide/Mg Hydroxide (Magnesium Hydrox/Alum Hydrox 30 Ml Oral.Susp) 30 ml PO Q6H PRN PRN Reason: Heartburn/Nausea Albuterol Sulfate (Albuterol Sulfate (0.083%) 2.5 Mg/3 Ml Vial.Neb) 5 mg INHALE Q20M PRN PRN Reason: Wheezing Clonazepam (Clonazepam 1 Mg Tablet) 1 mg PO BID [facility] Last Admin: 07/13/23 08:25 Dose: 1 mg Divalproex Sodium (Divalproex Sodium Er 250 Mg Tab.Er.24h) 250 mg PO DAILY [facility] Last Admin: 07/13/23 08:25 Dose: 250 mg Divalproex Sodium (Divalproex Sodium Er 500 Mg Tab.Er.24h) 500 mg PO BEDTIME [facility] Last Admin: 07/12/23 20:55 Dose: 500 mg Hydroxyzine HCl (Hydroxyzine Hcl 25 Mg Tablet) 25 mg PO Q6H PRN PRN Reason: Anxiety Last Admin: 07/12/23 10:35 Dose: 25 mg Ibuprofen (Ibuprofen 600 Mg Tablet) 600 mg PO TID PRN PRN Reason: Pain, Moderate(Pain Scale 4-6) Last Admin: 07/13/23 08:24 Dose: 600 mg Lamotrigine (Lamotrigine 100 Mg Tablet) 300 mg PO BID [facility] Last Admin: 07/13/23 08:25 Dose: 300 mg Levetiracetam (Levetiracetam 1,000 Mg Tablet) 2,000 mg PO BID [facility] Last Admin: 07/13/23 08:25 Dose: 2,000 mg Lidocaine (Lidocaine 4 % Patch Adh..Patch) 1 patch TRANSDERMA DAILY [facility]; Protocol Last Admin: 07/13/23 08:27 Dose: Not Given Magnesium Hydroxide (Milk Of Magnesia 30 Ml Oral.Susp) 30 ml PO DAILY PRN PRN Reason: Constipation Melatonin (Melatonin 3 Mg Tablet) 6 mg PO BEDTIME PRN PRN Reason: Insomnia Last Admin: 07/12/23 20:54 Dose: 6 mg Nicotine (Nicotine 21 Mg Patch.Td24) 21 mg TRANSDERMA DAILY PRN PRN Reason: smoking cessation Nicotine Polacrilex (Nicotine Polacrilex 2 Mg Gum) 4 mg BUCCAL Q2H PRN PRN Reason: Nicotine Cravings Olanzapine (Olanzapine 5 Mg Tablet) 5 mg PO TID PRN PRN Reason: agitation Sertraline HCl (Sertraline Hcl 25 Mg Tablet) 75 mg PO DAILY [facility] Last Admin: 07/13/23 08:24 Dose: 75 mg Trazodone HCl (Trazodone Hcl 50 Mg Tablet) 50 mg PO BEDTIME MRX1 PRN PRN Reason: Insomnia Allergies Allergies Allergy/AdvReac Type Severity Reaction Status Date / Time erythromycin base Allergy Unknown UNKNOWN Verified 07/04/23 12:49 [Erythromycin Base] Assessment & Plan Assessment & Plan (1) Intractable epilepsy: Qualifiers: Epilepsy type: generalized idiopathic Status epilepticus: without status epilepticus Qualified Code(s): G40.319 - Generalized idiopathic epilepsy and epileptic syndromes, intractable, without status epilepticus Status: Acute Code(s): G40.919 - Epilepsy, unspecified, intractable, without status epilepticus Assessment and Plan: 43 years old man with longstanding history of chronic intractable epilepsy comprised of generalized seizures with video EEG in [facility] in 2010 revealing bilateral spike in wave discharges, chronic behavioral disorder, and probably also alcohol and possible other drug abuse resulting in lack of full compliance with care and medications. He has missed numerous appointments in my office to the point that he was discharged from our office. Seizure control has only been 1 of the issues but during last 5-10 years, behavioral issues have affected him in more significant manner. While taking medicines on regular basis, his seizures were better controlled. His last visit to our office was about a year ago when he was taking levetiracetam 2000 mg twice a day, the valproic acid extended-release 750 mg twice a day, and lamotrigine 300 mg twice a day. For now, my recommendation is to put him back on that regimen. Main issue at this time is behavioral and appropriate medications and therapy. Plan 07/08/23 One to one YURI and Double Stranded DNA on 07/[address] Ballard. Continue Lamictal-pt reports compliance [employer] on current dose Continue Keppra-pt reports compliance [employer] on current dose Continue Depakote-pt non compliant with this [employer] 07/09/23 Continue treatment Tolerating Sertraline at 75 mg 07/10/2023: No changes 07/11/2023: No changes 07/12/23: Decrease Depakote ER to 250 mg a.m. 500 mg h.s. 07/13/23: Depakote tapering to continue. Patient educated on: medication risk/benefits Informed Consent: understands and further education needed Reason for continued inpatient stay Substantial Risk for: rapid decompensation and med/psych decompensation Time Spent With Patient Time: Total time managing care of this patient today ____ minutes.
[2023-07-13 20:00] VITALS: BP 121/57; PULSE 55; RESP 16; TEMP 36.5; O2SAT 97
[2023-07-13] MEDS: Divalproex Sodium ER 500 MG TAB.ER.24H PO (20:30)
[2023-07-13] MEDS: Melatonin 3 MG TABLET 6 MG PO (20:35)
[2023-07-14 08:00] VITALS: BP 113/58; PULSE 56; RESP 16; O2SAT 95
[2023-07-14] MEDS: Sertraline HCL 25 MG TABLET 75 MG PO (08:24)
[2023-07-14] MEDS: lamoTRIgine 100 MG TABLET 300 MG PO ×2 (08:24→20:44)
[2023-07-14] MEDS: levETIRAcetam 1,000 MG TABLET 2000 MG PO ×2 (08:24→20:43)
[2023-07-14] MEDS: clonazePAM 1 MG TABLET PO ×2 (08:24→20:43)
[2023-07-14] MEDS: Divalproex Sodium ER 250 MG TAB.ER.24H PO (08:24)
[2023-07-14] MEDS: Ibuprofen 600 MG TABLET PO ×2 (08:30→20:42)
--- NOTE | 2023-07-14 13:03 | HO.PSYCHPN ---
Subjective Subjective Date of Service: 07/14/23 Reason For Visit: Depression Subjective Notes: Conditional Voluntary Healthcare Proxy: No Guardianship: No Medical Problems Affecting Mental Status: No Interim History: Prepared for discharge. Accepting of referrals, VNA, PCP will follow for neurology until they choose a new provider. Pt understands that Dr. Lambeem will not continue with him due to misses appointments. Understands that he will need to maintain compliance with meds to maintain medical and psychiatric stability. Medication Compliance: Yes Side effects from medications: No Attending Groups: Yes Review of Systems Acute medical concerns: No Medical Review of Systems: unchanged Review of Systems Review of Systems Yes all other systems are reviewed and are negative Mental Status Exam Mental Status Exam Patient Appearance: Appropriate Patient Orientation: Person, Place, Time and Situation Level of Consciousness: Alert Patient Behavior: Talkative and Good Eye Contact Mood Description: Apprehensive Affect Description: Apprehensive Patient Cognition Impaired: No Ability to Follow Directions: Good Speech Pattern: Spontaneous Speech Memory Description: Intact Judgement: Good Diagnostics Vital Signs (24Hr): Vital Signs - 24 hr 07/13/23 20:00 07/14/23 08:00 Temperature 97.7 F Pulse Rate 55 56 Respiratory Rate 16 16 Blood Pressure 121/57 L 113/58 L Pulse Oximetry 97 95 Oxygen Delivery Method Room Air Room Air BMI result Body Mass Index 36.6 Labs 07/04/23 13:57 07/06/23 08:44 Medications Medications Current Medications Acetaminophen (Acetaminophen 325 Mg Tablet) 650 mg PO Q6H PRN PRN Reason: Headache/Pain Mild Scale (1-3) Al Hydroxide/Mg Hydroxide (Magnesium Hydrox/Alum Hydrox 30 Ml Oral.Susp) 30 ml PO Q6H PRN PRN Reason: Heartburn/Nausea Albuterol Sulfate (Albuterol Sulfate (0.083%) 2.5 Mg/3 Ml Vial.Neb) 5 mg INHALE Q20M PRN PRN Reason: Wheezing Clonazepam (Clonazepam 1 Mg Tablet) 1 mg PO BID [facility] Last Admin: 07/14/23 08:24 Dose: 1 mg Divalproex Sodium (Divalproex Sodium Er 250 Mg Tab.Er.24h) 250 mg PO DAILY [facility] Last Admin: 07/14/23 08:24 Dose: 250 mg Divalproex Sodium (Divalproex Sodium Er 500 Mg Tab.Er.24h) 500 mg PO BEDTIME [facility] Last Admin: 07/13/23 20:30 Dose: 500 mg Hydroxyzine HCl (Hydroxyzine Hcl 25 Mg Tablet) 25 mg PO Q6H PRN PRN Reason: Anxiety Last Admin: 07/12/23 10:35 Dose: 25 mg Ibuprofen (Ibuprofen 600 Mg Tablet) 600 mg PO TID PRN PRN Reason: Pain, Moderate(Pain Scale 4-6) Last Admin: 07/14/23 08:30 Dose: 600 mg Lamotrigine (Lamotrigine 100 Mg Tablet) 300 mg PO BID [facility] Last Admin: 07/14/23 08:24 Dose: 300 mg Levetiracetam (Levetiracetam 1,000 Mg Tablet) 2,000 mg PO BID [facility] Last Admin: 07/14/23 08:24 Dose: 2,000 mg Lidocaine (Lidocaine 4 % Patch Adh..Patch) 1 patch TRANSDERMA DAILY [facility]; Protocol Last Admin: 07/14/23 08:30 Dose: Not Given Magnesium Hydroxide (Milk Of Magnesia 30 Ml Oral.Susp) 30 ml PO DAILY PRN PRN Reason: Constipation Melatonin (Melatonin 3 Mg Tablet) 6 mg PO BEDTIME PRN PRN Reason: Insomnia Last Admin: 07/13/23 20:35 Dose: 6 mg Nicotine (Nicotine 21 Mg Patch.Td24) 21 mg TRANSDERMA DAILY PRN PRN Reason: smoking cessation Nicotine Polacrilex (Nicotine Polacrilex 2 Mg Gum) 4 mg BUCCAL Q2H PRN PRN Reason: Nicotine Cravings Olanzapine (Olanzapine 5 Mg Tablet) 5 mg PO TID PRN PRN Reason: agitation Sertraline HCl (Sertraline Hcl 25 Mg Tablet) 75 mg PO DAILY [facility] Last Admin: 07/14/23 08:24 Dose: 75 mg Trazodone HCl (Trazodone Hcl 50 Mg Tablet) 50 mg PO BEDTIME MRX1 PRN PRN Reason: Insomnia Allergies Allergies Allergy/AdvReac Type Severity Reaction Status Date / Time erythromycin base Allergy Unknown UNKNOWN Verified 07/04/23 12:49 [Erythromycin Base] Assessment & Plan Assessment & Plan (1) Intractable epilepsy: Qualifiers: Epilepsy type: generalized idiopathic Status epilepticus: without status epilepticus Qualified Code(s): G40.319 - Generalized idiopathic epilepsy and epileptic syndromes, intractable, without status epilepticus Status: Acute Code(s): G40.919 - Epilepsy, unspecified, intractable, without status epilepticus Assessment and Plan: 43 years old man with longstanding history of chronic intractable epilepsy comprised of generalized seizures with video EEG in [facility] in 2010 revealing bilateral spike in wave discharges, chronic behavioral disorder, and probably also alcohol and possible other drug abuse resulting in lack of full compliance with care and medications. He has missed numerous appointments in my office to the point that he was discharged from our office. Seizure control has only been 1 of the issues but during last 5-10 years, behavioral issues have affected him in more significant manner. While taking medicines on regular basis, his seizures were better controlled. His last visit to our office was about a year ago when he was taking levetiracetam 2000 mg twice a day, the valproic acid extended-release 750 mg twice a day, and lamotrigine 300 mg twice a day. For now, my recommendation is to put him back on that regimen. Main issue at this time is behavioral and appropriate medications and therapy. Plan 07/08/23 One to one YURI and Double Stranded DNA on 07/[address] Ballard. 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 500 mg h.s. 07/13/23: Depakote tapering to continue. 07/14/23: Discharge 07/14. Depakote taper on discharge to 250 mg bid ER. Reason for continued inpatient stay Substantial Risk for: stable for discharge Time Spent With Patient Time: Total time managing care of this patient today ____ minutes.
[2023-07-14] MEDS: hydrOXYzine HCL 25 MG TABLET PO (16:45)
[2023-07-14 20:00] VITALS: BP 139/62; PULSE 63; RESP 17; TEMP 36.2; O2SAT 97
[2023-07-14] MEDS: Melatonin 3 MG TABLET 6 MG PO (20:43)
[2023-07-14] MEDS: Divalproex Sodium ER 500 MG TAB.ER.24H PO (20:44)
[2023-07-14 21:04] LABS: Anti Nuclear Antibody Pattern Nuclear, Speckled; Anti Nuclear Antibody Screen POSITIVE (NEGATIVE)
[2023-07-15 08:00] VITALS: BP 110/53; PULSE 66; RESP 18; TEMP 36.4; O2SAT 96
[2023-07-15] MEDS: clonazePAM 1 MG TABLET PO (08:27)
[2023-07-15] MEDS: Sertraline HCL 25 MG TABLET 75 MG PO (08:28)
[2023-07-15] MEDS: Divalproex Sodium ER 250 MG TAB.ER.24H PO (08:28)
[2023-07-15] MEDS: lamoTRIgine 100 MG TABLET 300 MG PO (08:28)
[2023-07-15] MEDS: Ibuprofen 600 MG TABLET PO (08:28)
[2023-07-15] MEDS: levETIRAcetam 1,000 MG TABLET 2000 MG PO (08:29)
--- NOTE | 2023-07-15 09:52 | P.DS_ITS ---
DS: Providers Provider Date of Service: 07/15/23 Date of admission: 07/05/23 14:58 Date of discharge: 07/15/23 Primary care physician: Matthieu Buenrostro MD Admitting clinician: Isabel Andrews Attending physician on admission: Miguel Holden Consults: 07/04/23 15:02 Consult to Care Team Stat Comment: Reason for consultation: Worsening depression 07/07/23 09:52 Consult to Neurology Routine Consulting Provider: Breanna Ballard Reason for consultation: Seizures Has provider been notified: No Attending physician on discharge: Mgiuel Holden Discharging clinician: Isabel Andrews DS: Diagnosis Discharge Diagnosis (1) Intractable epilepsy: Status: Acute (2) Bipolar disorder: Status: Acute DS: Medications Discharge Medications Home Medications: Home Medications ?Medication ?Instructions ?Recorded ?Confirmed ibuprofen 600 mg tablet 600 mg PO TID PRN Pain 07/04/23 07/04/23 ipratropium 20 mcg-albuterol 100 1 puff inhalation Q6H PRN Adequate 07/04/23 07/04/23 mcg/actuation mist for inhalation Ventilation (Combivent Respimat) melatonin 5 mg tablet 5 mg PO BEDTIME PRN Insomnia 07/04/23 07/04/23 Previous Rx's ?Medication ?Instructions ?Recorded clonazepam 1 mg tablet 1 mg PO BID #14 tabs 07/14/23 divalproex 250 mg tablet,extended 250 mg PO BID #60 tabs 07/14/23 release 24 hr (Depakote ER) hydroxyzine HCl 25 mg tablet 25 mg PO Q6H PRN Anxiety #60 tabs 07/14/23 lamotrigine 100 mg tablet 300 mg (3 x 100 mg) PO BID #60 tabs 07/14/23 levetiracetam 1,000 mg tablet 2,000 mg (2 x 1,000 mg) PO Q12H 07/14/23 #120 tabs nicotine (polacrilex) 2 mg gum 4 mg buccal Q2H PRN Nicotine 07/14/23 Cravings #60 ea nicotine 21 mg/24 hr daily 21 mg transdermal DAILY PRN 07/14/23 transdermal patch smoking cessation #30 ea sertraline 25 mg tablet 75 mg (3 x 25 mg) PO DAILY #90 tabs 07/14/23 Mental Status Exam Mental Status Exam Patient Appearance: Appropriate Patient Orientation: Person, Place, Time and Situation Level of Consciousness: Alert Patient Behavior: Talkative and Good Eye Contact Mood Description: Apprehensive Affect Description: Apprehensive Patient Cognition Impaired: No Ability to Follow Directions: Good Speech Pattern: Spontaneous Speech Memory Description: Intact Perceptual Disturbances: Hallucinations Data Data Completed and Pending Completed studies during hospitalization [Text1]: 07/07/23 07/07/23 07/09/23 02:00 08:43 09:00 Lamotrigine 16.1 H Levetiracetam 97.6 H YUIR Screen POSITIVE A YURI Titer 1:1280 H YURI Titer 2 Pending YURI Titer 3 Pending YURI Pattern Nuclear, Speckled A YURI Pattern 2 Pending YURI Pattern 3 Pending Anti-ds DNA Titer (Crith) Pending Anti-ds DNA (Crithidia) Pending DS: Summary Hospital Course Hospital Course: Admission to adult psychiatry for exacerbation of bipolar disorder. Pt reported making several changes to his anticonvulsant regime of Depakote, Lamictal and Keppra without consulting with his neurology team. Dr. Ballard, who has seen pt for over twenty years, has terminated with pt due to his not attending [address]+ appointments. Dr. Ballard met with pt on the unit, advised he continue with current meds and dosages. Pt agreed, except for Depakote, which is decreased to 250 mg bid. Valproate level on admit 46. Lamictal level on admit 16.1 and Keppra level on admit high at 97.6. Pt remains on pre admit dose of 2000 mg q 12 h. Sertraline was increased to 75 mg daily and tolerated. Symptoms cleared when regime was re-enstated. Seizures occurred during the initial portion of the admission but subsided as doses were titrated. Pt will follow up with primary care physician who will need to refer him to a new neurological datastage consultant. Primary care team is aware of this and had no recommendations prior to discharge for referral. Status at Discharge Functional status at discharge: independent ambulation Overall status at discharge: patient is progressing back to baseline Time Spent with Patient Time attestation: Total time managing care of this patient today ____ minutes. Time spent: Less than 30 minutes Discharge Plan Discharge Anticipated Discharge Date/Time: 07/15/23 12:00 Patient Disposition: Home, Self-Care Discharge Diagnosis: Epilepsy Bipolar Disorder Alcohol Use Disorder COPD Referrals: [facility] Intake w Jada Chavarria [Other] - 07/20/23 12:00 pm [facility] Psychronit HarkinsAlbert [Other] - 08/19/23 9:00 am (Telehealth in Office.) [facility] Med MgnainaAlbert [Other] - 09/20/23 10:00 am (Telehealth in Office) Name,MD Matthieu [Primary Care Provider] - 07/27/23 3:15 pm (in office) Discharge Medications: New nicotine (polacrilex) 2 mg Gum 4 mg buccal Q2H PRN (Reason: Nicotine Cravings) Qty: 60 0RF clonazepam 1 mg Tablet 1 mg PO BID Qty: 14 4RF nicotine 21 mg/24 hr Patch 24 Hour 21 mg transdermal DAILY PRN (Reason: smoking cessation) Qty: 30 0RF sertraline 25 mg Tablet 75 mg PO DAILY Qty: 90 0RF hydroxyzine HCl 25 mg Tablet 25 mg PO Q6H PRN (Reason: Anxiety) Qty: 60 0RF lamotrigine 100 mg Tablet 300 mg PO BID Qty: 60 0RF divalproex [Depakote ER] 250 mg tablet extended release 24 hr 250 mg PO BID Qty: 60 0RF Continued ibuprofen 600 mg Tablet 600 mg PO TID PRN (Reason: Pain) melatonin 5 mg Tablet 5 mg PO BEDTIME PRN (Reason: Insomnia) Combivent Respimat 20-100 mcg/actuation mist 1 puff inhalation Q6H PRN (Reason: Adequate Ventilation) levetiracetam 1,000 mg Tablet 2,000 mg PO Q12H Qty: 120 0RF Discontinued lamotrigine 150 mg Tablet 300 mg PO DAILY clonazepam 0.5 mg Tablet 0.5 mg PO DAILY clonazepam 1 mg Tablet 1 mg PO BEDTIME Rx Instructions: administer 30 minutes before bedtime divalproex [Depakote ER] 500 mg Tablet Extended Release 24 Hr 500 mg PO BID sertraline 50 mg Tablet 50 mg PO DAILY Discharge Orders: Discharge Order (Routine); Ordered 07/15/23 Ordered By: Isabel Andrews Diet: Regular diet Activity on Discharge: As tolerated Stand Alone Forms: Patient Portal Discharge page Print Language: Peruvian Care Plan Goals: Mood and Behavioral Stabilization Health Concerns: Mood and Behavioral Stabilization Plan of Treatment: Attend scheduled appointments Take medications as directed Assessment: Pt interviewed prior to discharge and found to be oriented and without SI/HI. Pt has insight and demonstrates good judgment in terms of wanting to pursue treatment and comply with medication regime. Pt is not in imminent risk of harm to self or others and has a safety plan that includes presenting to the closest ER or calling 911 if feeling unsafe. Pt has been observed closely by nursing and unit staff throughout admission. Pt has not engaged in any behaviors that suggest dangerousness to self or other and has demonstrated appropriate behaviors and impulse control.
[2023-07-15] MEDS: hydrOXYzine HCL 25 MG TABLET PO (10:24)
[2023-07-15 12:23] LABS: DNAds, Crithidia Antibody Negative (Negative)
== END 2023-07-15 11:13 | disposition home or self-care (01) | DRG 753 ==
LOC: HO.ED 07-05 11:17 → HO.PM5 07-05 15:13
PROVIDERS: Physician Assistant; Admitting Provider Psychiatry & Neurology Psychiatry; Emergency Provider Student in an Organized Health Care Education/Training Program; PCP Internal Medicine Geriatric Medicine; Visit Provider Clinical Nurse Specialist Psychiatric/Mental Health, Adult
DX: F31.9 Bipolar disorder, unspecified (principal); G40.319 Generalized idiopathic epilepsy and epileptic syndromes, intractable, without status epilepticus; F10.20 Alcohol dependence, uncomplicated; F17.210 Nicotine dependence, cigarettes, uncomplicated; J44.9 Chronic obstructive pulmonary disease, unspecified; Z71.6 Tobacco abuse counseling; Z91.52 Personal history of nonsuicidal self-harm; Z91.199 Patient's noncompliance with other medical treatment and regimen due to unspecified reason; Z79.899 Other long term (current) drug therapy
CPT/HCPCS: 36415; 80048; 80053; 80061; 80076; 80164; 80175; 80177; 80307; 81001; 82607; 82746; 83036; 83735; 84443; 85025; 86038; 86039; 86255; 99285; S9485

== ENCOUNTER → 2023-07-05 14:58 | Outpatient (BNV) | payer MEDICAID, SELFPAY | PROVIDERS: Admitting Provider Psychiatry & Neurology Psychiatry; Emergency Provider Student in an Organized Health Care Education/Training Program; PCP Internal Medicine Geriatric Medicine; Visit Provider Psychiatry & Neurology Neurology | DX: G40.909 Epilepsy, unspecified, not intractable, without status epilepticus (principal); J44.9 Chronic obstructive pulmonary disease, unspecified; F31.9 Bipolar disorder, unspecified; F10.20 Alcohol dependence, uncomplicated | CPT/HCPCS: 99222; 99232 ==

== ENCOUNTER → 2023-07-05 14:58 | Outpatient (BNV) | payer OTHER, SELFPAY | PROVIDERS: Admitting Provider Psychiatry & Neurology Psychiatry; Emergency Provider Student in an Organized Health Care Education/Training Program; PCP Internal Medicine Geriatric Medicine; Visit Provider Clinical Nurse Specialist Psychiatric/Mental Health, Adult | DX: F31.4 Bipolar disorder, current episode depressed, severe, without psychotic features (principal); G40.909 Epilepsy, unspecified, not intractable, without status epilepticus; F10.20 Alcohol dependence, uncomplicated; J44.9 Chronic obstructive pulmonary disease, unspecified; G40.319 Generalized idiopathic epilepsy and epileptic syndromes, intractable, without status epilepticus | CPT/HCPCS: 99231; 99232 ==

== ENCOUNTER 2023-09-29 | Outpatient (REF) | payer OTHER, SELFPAY ==
[2023-10-04 12:13] LABS: Alphahydroxymidazolam,GCMS Ur NEGATIVE; Alphahydroxytriazolam, GCMS Ur NEGATIVE; Alprazolam, GCMS Urine NEGATIVE; Flurazepam Metabolite,GCMS Ur NEGATIVE; Lorazepam GCMS Urine NEGATIVE; Nordiazepam, GCMS Urine NEGATIVE; Oxazepam, GCMS Urine NEGATIVE; Temazepam, GCMS Urine NEGATIVE
== END 2023-09-29 00:01 | disposition home or self-care (01) ==
LOC: HO.HHCLNP
PROVIDERS: Visit Provider Internal Medicine Geriatric Medicine
DX: F41.9 Anxiety disorder, unspecified (principal)
CPT/HCPCS: 80346

== ENCOUNTER 2023-10-26 16:52 | Inpatient (IN) | payer MEDICAID, OTHER, SELFPAY ==
--- NOTE | ~2023-10-26 | CT_ITS ---
EXAMINATION: CT HEAD WITHOUT CONTRAST CLINICAL INFORMATION: fall, head strike COMPARISON: Head CT on 10/06/20 TECHNIQUE: Contiguous axial imaging was performed from the skull base to vertex without intravenous administration of contrast. This CT examination was performed using dose optimization techniques as appropriate, variously including the following: *Automated exposure control *Adjustment of mA and/or kV according to patient size (this includes techniques or standardized protocols for targeted exams where dose is matched to indication/reason for exam; i.e. extremities or head) *Use of iterative reconstruction technique DLP: 1446 mGy-cm RESULTS: There is no evidence of acute intracranial hemorrhage, acute large vessel infarct, midline shift or mass effect. The browne-white differentiation is preserved. The ventricles and sulci are within normal limits in size and configuration. There is no evidence of hydrocephalus. There are no extraaxial collections. Incidental note of unchanged megacisterna magna. Osseous structures are intact. Paranasal sinuses and mastoid air cells are well aerated. CT/CT head/brain wo IV con IMPRESSION: No acute intracranial pathology. Electronically signed by: Missy Laws MD 10/27/2023 09:11 PM EDT
--- NOTE | ~2023-10-26 | CT_ITS ---
EXAMINATION: CT HEAD WITHOUT CONTRAST CLINICAL INFORMATION: Recent seizure. COMPARISON: CT head from 10/27/2023. TECHNIQUE: Contiguous axial imaging was performed from the skull base to vertex without intravenous administration of contrast. This CT examination was performed using dose optimization techniques as appropriate, variously including the following: *Automated exposure control. *Adjustment of mA and/or kV according to patient size (this includes techniques or standardized protocols for targeted exams where dose is matched to indication/reason for exam; i.e. extremities or head). *Use of iterative reconstruction technique. DLP: 951 mGy-cm FINDINGS: There is no evidence of acute intracranial hemorrhage or edematous territorial infarction. Luke-white matter differentiation is preserved. There is no abnormal attenuation within the brain parenchyma. The ventricles are normal in morphology and size. No evidence for obstructive hydrocephalus. Moderate prominence of the CSF space posterior to cerebellum. There appears to be mild diffuse volume loss of the cerebellum. No additional abnormal mass effect or midline shift. No extra-axial fluid collections. No acute soft tissue or osseous abnormalities. Moderate residual thickening of the left ethmoid air cells. Mild mucosal thickening of the remaining paranasal sinuses. The mastoid air cells and middle ear cavities are clear. CT/CT head/brain wo IV con IMPRESSION: 1. No evidence of acute intracranial hemorrhage or edematous territorial infarction. 2. Moderate prominence of the CSF space posterior to the cerebellum. There appears to be mild diffuse volume loss of the cerebellum. 3. No additional demonstrated abnormal mass effect on the noncontrast evaluation. Electronically signed by: Everardo Hdez DO 11/03/2023 02:27 PM EDT
[2023-10-26 17:09] VITALS: BP 136/64; BP 170/88; PULSE 51; RESP 16; TEMP 36.9; O2SAT 97; O2SAT 99; BMI 31.6
[2023-10-26 17:12] VITALS: RESP 16
--- NOTE | 2023-10-26 17:15 | PC.NURSE ---
Pt presents to the ED today reporting suicidal thoughts as well as homicidal thoughts with a plan to stab people. he reports there was no triggering factor and that he occasionally has auditory hallucinations telling him to harm others. He denies a plan to harm himself. He reports that he is medication compliant and denies any other complaints at this time. Patient is calm and cooperative, help seeking, participatory in change booth attendant process.
[2023-10-26 17:24] LABS: Appearance Urine Clear; Color Urine Yellow; Glucose Urine UA Negative (Negative); Leukocyte Esterase Urine Negative (Negative); Nitrite Urine Negative (Negative); Specific Gravity - Urine >= 1.030 (1.005-1.025); Urine Blood Negative (Negative); Urine Ketones Trace mg/dL (Negative); Urine Protein Negative (Neg-Trace)
[2023-10-26 17:34] LABS: Amphetamine Screen Urine Not Detected (Not Detect); Barbiturates, Urine Not Detected (Not Detect); Benzodiazepines Screen Urine Not Detected (Not Detect); Buprenorphine Scr Not Detected (Not Detect); Cannabinoid Screen Urine Not Detected (Not Detect); Cocaine Screen Urine Not Detected (Not Detect); Fentanyl, urine Not Detected (Not Detect); Methadone Screen, Urine Not Detected (Not Detect); Opiate Screen Urine Not Detected (Not Detect); Oxycodone Screen Urine Not Detected (Not Detect); Phencyclidine Screen Urine Not Detected (Not Detect)
--- NOTE | 2023-10-26 17:44 | ED_ITS ---
HPI - Psych General Chief Complaint: Psychiatric Symptoms Stated Complaint: SI Time Seen by Provider: 10/26/23 17:30 Source: patient Mode of arrival: ambulatory Limitations: no limitations History of Present Illness ED Provider: Norma RUBIO HPI Narrative: 43-year-old male with past medical history of bipolar depression, COPD, intractable epilepsy, and alcohol dependence presenting with chief complaint of SI/HI with associated auditory hallucinations telling him to harm others. Patient has been feeling more irritated towards his brother who lives in his basement stating that his brother was supposed to be living with him for 2 months and now it has been 2 years. Patient admits to using cocaine, alcohol and tobacco use. He states that he has recently decided to quit all of these on October 06 and has yet to have used any of the following. Patient has a history of seizures when he has stopped using drugs in the past. Patient has no medical complaints at this time. Denies chest pain, shortness breath, nausea, vomiting, urinary changes, BM changes, pain at this time. Related Data Home Medications ?Medication ?Instructions ?Recorded ?Confirmed ibuprofen 600 mg tablet 600 mg PO TID PRN Pain 07/04/23 10/26/23 melatonin 5 mg tablet 5 mg PO BEDTIME PRN Insomnia 07/04/23 10/26/23 Previous Rx's ?Medication ?Instructions ?Recorded clonazepam 1 mg tablet 1 mg PO BID #14 tabs 07/14/23 divalproex 250 mg tablet,extended 250 mg PO BID #60 tabs 07/14/23 release 24 hr (Depakote ER) nicotine (polacrilex) 2 mg gum 4 mg buccal Q2H PRN Nicotine 07/14/23 Cravings #60 ea nicotine 21 mg/24 hr daily 21 mg transdermal DAILY PRN 07/14/23 transdermal patch smoking cessation #30 ea sertraline 25 mg tablet 75 mg (3 x 25 mg) PO DAILY #90 tabs 07/14/23 Allergies Allergy/AdvReac Type Severity Reaction Status Date / Time erythromycin base Allergy Unknown UNKNOWN Verified 10/26/23 17:11 [Erythromycin Base] Review of Systems 2 Review of Systems: Yes all other systems are reviewed and are negative PMFSH Past Medical History Attestation statement: The following information was validated with the patient. Source: old records reviewed and nursing notes reviewed Social History Social History Household Members: Family Household Members Other:: brothers Housing: House Do you presently have visiting nurse or other home services: No Alcohol intake: current Alcohol intake frequency: holidays/special occasions only Alcohol type: beer and hard liquor Patient Tobacco Use Status: Current someday Tobacco user Tobacco use type: Cigarette Smoked in Last 30 Days: Yes e-Cigarette/Vaping Use: Never Used Second Hand Smoke Exposure: No Use of substances other than those prescribed or required for medical reasons: No Advance Directives: No Advance Directives Information Provided: No Do you have a plan to hurt others: Specific service: No Sexual orientation: Straight/Heterosexual Physical Exam 2 Vital Signs: Vital Signs: Last Vital Signs Temp 98.4 F 10/26/23 17:09 Pulse 51 10/26/23 17:09 Resp 16 10/26/23 17:12 BP 136/64 10/26/23 17:09 Pulse Ox 99 10/26/23 17:09 O2 Del Method Room Air 10/26/23 17:09 BMI result Body Mass Index 31.6 vss Appearance: Alert.? Oriented X3.? No acute distress.? Head: Normocephalic, atraumatic, no step-offs or deformities Eyes: Pupils equal, round and reactive to light.? CVS: Normal heart rate and rhythm.? Pulses normal.? Respiratory: No respiratory distress.? Breath sounds normal.? Abdomen: Soft and nontender.? Skin: Skin warm and dry.? Normal skin color.? Normal skin turgor.? Extremities: No lower extremity edema.? No calf ttp. 5/5 strength to bilateral upper and lower extremities Back: No midline tenderness, no C-spine tenderness, full range of motion, no CVA tenderness bilaterally Neuro: Oriented X 3.? No motor deficit.? No sensory deficit. CN 2-12 intact Course Reevaluation(s) Reevaluation #1: CBC with no acute findings eating intervention. Chemistry no acute findings needing intervention. UA unremarkable no infection. Valproic acid low will continue his home meds. Urine toxicology negative. Ethanol negative. Plan at this time will place patient in observation to allow more time to be seen by care team. At time observation was started patient common cooperative no acute distress will continue to monitor Time: 20:10 Medical Decision Making Medical Decision Making MDM Narrative: 43 year old M presenting with concerns of SI/HI without a plan with associated auditory hallucinations PE - benign Hx and pe concerning for BPD exacerbation vs intoxication vs depression vs schizophrenia. Unlikely stroke, migraine, acute paula, psychosis. Plan- urine, MCKENZIE, labs Lab Data 10/26/23 18:32 10/26/23 18:32 Labs: Lab Results 10/26/23 10/26/23 Range/Units 17:17 18:32 WBC 5.1 (4.8-10.8) X10*3/uL RBC 4.27 L (4.60-5.80) X10*6/uL Hgb 13.4 L (14.0-18.0) g/dl Hct 39.6 L (42.0-52.0) % MCV 92.7 (80.0-98.0) fL MCH 31.4 (27.0-33.0) pg MCHC 33.8 (31.0-36.0) g/dl RDW 13.7 (11.0-16.0) % Plt Count 120 L (160-400) X10*3/uL MPV 11.8 (9.4-12.4) fL Immature Gran % (Auto) 0.2 (0.0-0.4) % Neut % (Auto) 58.3 (45-73) % Lymph % (Auto) 31.6 (20-40) % Burnett % (Auto) 6.8 (2-11) % Eos % (Auto) 2.5 (0-4) % Baso % (Auto) 0.6 (0-2) % Lymph # (Auto) 1.6 (1.2-4.9) X10*3/uL Burnett # (Auto) 0.4 (0.1-1.2) X10*3/uL Eos # (Auto) 0.1 (0.0-0.4) X10*3/uL Baso # (Auto) 0.0 (0.0-0.2) X10*3/uL Abs Immat Gran (auto) 0.01 (0.00-0.03) X10*3/uL Absolute Neuts (auto) 3.0 (2.0-8.3) x10*3/uL Absolute Nucleated RBC 0.000 (0.0-0.012) X10*3/uL Nucleated RBC % (auto) 0.0 (0.0-0.2) /100WBC Smear Tech's Comments VERIFIED Sodium 142 (135-145) mmol/L Potassium 4.3 (3.3-5.1) mmol/L Chloride 106 (96-108) mmol/L Carbon Dioxide 29 (22-29) mmol/L Anion Gap 11 L (12-20) BUN 20 H (9-16) mg/dL Creatinine 0.96 (0.5-1.4) mg/dL Estim Creat Clear Calc 118.6 Estimated GFR > 60 Random Glucose 117 H (60-115) mg/dL Calcium 9.3 D (8.4-10.2) mg/dL Magnesium 2.0 (1.6-2.6) mg/dL Total Bilirubin 0.3 (0.0-1.0) mg/dL AST 14 (5-37) U/L ALT 10 (0-40) U/L Alkaline Phosphatase 47 (39-117) U/L Total Protein 6.9 (6.5-8.0) g/dL Albumin 3.9 (3.5-5.0) g/dL Urine Color Yellow Urine Appearance Clear Urine pH 7.0 (5.0-9.0) Ur Specific [place] >= 1.030 H (1.005-1.025) Urine Protein Negative (Neg-Trace) mg/dL Urine Glucose (UA) Negative (Negative) mg/dL Urine Ketones Trace (Negative) mg/dL Urine Blood Negative (Negative) Urine Nitrite Negative (Negative) Ur Leukocyte Esterase Negative (Negative) Urine Opiates Screen Not Detected (Not Detect) Ur Buprenorphine Scrn Not Detected (Not Detect) ng/mL Ur Oxycodone Screen Not Detected (Not Detect) ng/mL Urine Methadone Screen Not Detected (Not Detect) ng/mL Urine Fentanyl Screen Not Detected (Not Detect) Ur Barbiturates Screen Not Detected (Not Detect) Valproic Acid 43.8 L (50.0-100.0) mcg/mL Ur Phencyclidine Scrn Not Detected (Not Detect) Ur Amphetamines Screen Not Detected (Not Detect) U Benzodiazepines Scrn Not Detected (Not Detect) Urine Cocaine Screen Not Detected (Not Detect) U Marijuana (THC) Screen Not Detected (Not Detect) Ethyl Alcohol < 10 mg/dL Critical Care Time Critical Care Time Critical Care Time: No Discharge Plan Discharge Clinical Impression: Bipolar disorder Patient Disposition: Still a Patient Prescriptions: No Action ibuprofen 600 mg Tablet 600 mg PO TID PRN (Reason: Pain) melatonin 5 mg Tablet 5 mg PO BEDTIME PRN (Reason: Insomnia) nicotine (polacrilex) 2 mg Gum 4 mg buccal Q2H PRN (Reason: Nicotine Cravings) Qty: 60 0RF clonazepam 1 mg Tablet 1 mg PO BID Qty: 14 4RF nicotine 21 mg/24 hr Patch 24 Hour 21 mg transdermal DAILY PRN (Reason: smoking cessation) Qty: 30 0RF sertraline 25 mg Tablet 75 mg PO DAILY Qty: 90 0RF divalproex [Depakote ER] 250 mg tablet extended release 24 hr 250 mg PO BID Qty: 60 0RF Interventions: [place]-Suicide Risk Severity Scale Last Done: 10/26/23 17:12 Print Language: Ethiopian
[2023-10-26 18:45] LABS: Basophils Percent Auto 0.6 % (0-2); Eosinophils Absolute Auto 0.1 X10*3/uL (0.0-0.4); Eosinophils Percent Auto 2.5 % (0-4); Hematocrit 39.6 % (42.0-52.0); Hemoglobin 13.4 g/dl (14.0-18.0); Imm Gran Abs Auto 0.01 X10*3/uL (0.00-0.03); Imm Gran Pct Auto 0.2 % (0.0-0.4); Lymphocytes Absolute Auto 1.6 X10*3/uL (1.2-4.9); Lymphocytes Percent Auto 31.6 % (20-40); MANUAL DIFF FLAG SCAN; Mean Corpuscular HGB Conc 33.8 g/dl (31.0-36.0); Mean Corpuscular Hemoglobin 31.4 pg (27.0-33.0); Mean Corpuscular Volume 92.7 fL (80.0-98.0); Mean Platelet Volume 11.8 fL (9.4-12.4); Monocytes Absolute Auto 0.4 X10*3/uL (0.1-1.2); Monocytes Percent Auto 6.8 % (2-11); Neutrophils Percent Auto 58.3 % (45-73); PLT CLUMP 1; Red Blood Count 4.27 X10*6/uL (4.60-5.80); Red Cell Distribution Width 13.7 % (11.0-16.0); SCAN SMEAR FLAG 1
[2023-10-26 18:47] LABS: Platelet Count 120 X10*3/uL (160-400); White Blood Count 5.1 X10*3/uL (4.8-10.8)
[2023-10-26 18:57] LABS: Alanine Aminotransferase 10 U/L (0-40); Albumin Level 3.9 g/dL (3.5-5.0); Alkaline Phosphatase 47 U/L (39-117); Anion Gap 11 (12-20); Aspartate Amino Transferase 14 U/L (5-37); Bilirubin Total 0.3 mg/dL (0.0-1.0); Blood Urea Nitrogen 20 mg/dL (9-16); Calcium 9.3 mg/dL (8.4-10.2); Carbon Dioxide 29 mmol/L (22-29); Chloride 106 mmol/L (96-108); Creatinine Clr Calc Pharmacy 118.6; Estimated Glomerular Filt Rate > 60; Ethanol < 10 mg/dL; Glucose Random 117 mg/dL (60-115); Potassium 4.3 mmol/L (3.3-5.1); Sodium 142 mmol/L (135-145); Total Protein 6.9 g/dL (6.5-8.0)
[2023-10-26 19:00] LABS: SLIDE REVIEW VERIFIED
[2023-10-26 19:18] LABS: Valproate 43.8 mcg/mL (50.0-100.0)
[2023-10-26] MEDS: clonazePAM 1 MG TABLET PO (20:44)
[2023-10-26] MEDS: Divalproex Sodium ER 250 MG TAB.ER.24H PO (20:44)
[2023-10-27 00:24] VITALS: BP 127/77; PULSE 47; RESP 14; TEMP 37.2; O2SAT 97
[2023-10-27] MEDS: Sertraline HCL 25 MG TABLET 75 MG PO (09:14)
[2023-10-27] MEDS: Divalproex Sodium ER 250 MG TAB.ER.24H PO ×2 (09:14→20:44)
[2023-10-27] MEDS: clonazePAM 1 MG TABLET PO ×2 (09:14→20:43)
[2023-10-27] MEDS: Ibuprofen 600 MG TABLET PO (09:40)
[2023-10-27] MEDS: levETIRAcetam 1,000 MG TABLET 2000 MG PO ×2 (09:40→20:44)
[2023-10-27] MEDS: lamoTRIgine 100 MG TABLET 300 MG PO ×2 (10:53→20:43)
[2023-10-27 14:41] VITALS: RESP 14
--- NOTE | 2023-10-27 15:19 | PC.NURSE ---
Patient up and ambulatory in unit, skin pwd, resp even and non labored. calm and cooperative, talking with staff. Patient expresses he was having thoughts of SI and knew he needed help which is why he presented to the hospital for treatment. Patient aware that he is bed search.
[2023-10-27] MEDS: hydrOXYzine HCL 50 MG TABLET PO (15:43)
--- NOTE | 2023-10-27 15:44 | PC.NURSE ---
Patient reports increased anxiety, states that this is why he is so talkative at this time, hand tremors noted. pt requesting hydroxyzine, provider aware and patient medicated as ordered.
[2023-10-27 16:30] VITALS: BP 123/62; PULSE 50; RESP 16; TEMP 36.7; O2SAT 99
[2023-10-27 17:43] VITALS: BP 135/69; PULSE 54; RESP 16; TEMP 36.3; O2SAT 99
[2023-10-27 18:10] VITALS: BP 127/74; PULSE 49; RESP 16; TEMP 36.6; O2SAT 99
--- NOTE | 2023-10-27 18:15 | PC.NURSE ---
Patient reported to ED BH POD staff that he just had a fall while he was in the bathroom. This RN was assisting with a plant changer in the bathroom next door while this event occurred. patient states he is having spasms related to the hot/cold temperatues and that caused him to fall hitting his forehead on the sink, denies LOC. no lumps or abrasions noted, small area of erythema noted to forehead. patient denies pain or injury to extremities. PA to bedside to evaluate patient. plan is for head CT. Red socks given to patient. Patient educated to not get up without assistance.
[2023-10-27] MEDS: Melatonin 3 MG TABLET 6 MG PO (21:57)
[2023-10-28 02:25] VITALS: BP 109/57; PULSE 54; RESP 17; TEMP 36.7; O2SAT 98
--- NOTE | 2023-10-28 05:54 | PC.NURSE ---
Patient slept through the night, no distress observed/reported, meds and meals compliant, denied SI/HI/AVH, disposition per care team is section 12 inpatient bed search, no behavior and safety concerns, will continue to monitor
[2023-10-28 08:40] VITALS: BP 124/65; PULSE 57; RESP 18; TEMP 36.9; O2SAT 97
[2023-10-28] MEDS: Sertraline HCL 25 MG TABLET 75 MG PO (08:40)
[2023-10-28] MEDS: clonazePAM 1 MG TABLET PO ×2 (08:40→20:06)
[2023-10-28] MEDS: levETIRAcetam 1,000 MG TABLET 2000 MG PO ×2 (08:40→20:04)
[2023-10-28] MEDS: Divalproex Sodium ER 250 MG TAB.ER.24H PO (08:41)
[2023-10-28] MEDS: lamoTRIgine 100 MG TABLET 300 MG PO ×2 (08:44→20:05)
--- NOTE | 2023-10-28 08:47 | PC.NURSE ---
patient is awake and alert this morning, patient ambulates with steady gait around unit. interactive with staff and peers. patient VSS, respirations equal and unlabored, skin dry and intact. patient medicated per MAY, states he has a headache, requested prn ibuprofin, this RN reached out to attending provider for order.
[2023-10-28] MEDS: Ibuprofen 400 MG TABLET PO (10:10)
[2023-10-28 11:24] VITALS: RESP 14
[2023-10-28] MEDS: Acetaminophen 325 MG TABLET 975 MG PO (11:47)
[2023-10-28] MEDS: hydrOXYzine HCL 25 MG TABLET PO ×2 (15:17→21:30)
[2023-10-28] MEDS: Ibuprofen 600 MG TABLET PO ×2 (16:17→22:26)
--- NOTE | 2023-10-28 16:51 | PC.NURSE ---
Valerio was admitted from the POD on a CV after presenting to the ED for SI and HI with . Valerio was pleasant and bright when brought to the unit and stated he was so happy to be back and was so glad he was seeing so many people he knew. Valerio remembered the names of many staff and was tearful when stating how he felt that he was back in a good place . Valerio verbalized he began to feel HI at home where he lives with his brothers and Uncle after hearing his brother talking about him needing to get out , he stated his brother also is really mean to him which led to him having HI about stabbing him. Valerio was also having SI and stated he was thinking about stabbing himself stating he has 2 knifes in his room at home and was thinking about starting at my arms and cutting myself . Valerio was agreeable to the admission process and signed paperwork. Denies any drug or alcohol use and verbalized he hasn't had a drink since 10/07/23. Valerio had a fall while in the ED and reports he hit his head on the toilet, imaging done and there is no bruising or redness, he reports there is still pain and has been utilizing Ibuprofen. Skin assessment WNL. HX of seizures related to epilepsy and COPD.
[2023-10-28 18:52] VITALS: BP 153/75; PULSE 58; RESP 18; O2SAT 99
[2023-10-28 20:00] VITALS: BP 149/70; PULSE 58; TEMP 36.7; O2SAT 98
[2023-10-28] MEDS: Divalproex Sodium ER 500 MG TAB.ER.24H PO (20:05)
[2023-10-28] MEDS: Melatonin 3 MG TABLET 6 MG PO (20:06)
[2023-10-28] MEDS: Acetaminophen 325 MG TABLET 650 MG PO (20:22)
[2023-10-29 08:00] VITALS: BP 121/60; PULSE 90; RESP 18; TEMP 36.8; O2SAT 95
[2023-10-29] MEDS: Ibuprofen 600 MG TABLET PO ×2 (08:36→20:47)
[2023-10-29] MEDS: Sertraline HCL 25 MG TABLET 75 MG PO (08:36)
[2023-10-29] MEDS: lamoTRIgine 100 MG TABLET 300 MG PO ×2 (08:36→20:34)
[2023-10-29] MEDS: levETIRAcetam 1,000 MG TABLET 2000 MG PO ×2 (08:36→20:34)
[2023-10-29] MEDS: Divalproex Sodium ER 500 MG TAB.ER.24H PO ×2 (08:36→20:34)
[2023-10-29] MEDS: clonazePAM 1 MG TABLET PO ×2 (08:37→20:34)
[2023-10-29] MEDS: Nicotine 21 MG PATCH.TD24 TRANSDERMA (08:39)
[2023-10-29 09:09] LABS: Cholesterol 196 mg/dL (<200); HDL Cholesterol 68 mg/dL (>40); LDL Cholesterol Calculated 120 mg/dL (<100); Magnesium 2.1 mg/dL (1.6-2.6); Triglycerides 41 mg/dL (<150)
[2023-10-29 09:25] LABS: Estimated Average Glucose 94 mg/dL; Hemoglobin A1c % 4.9 % (<6.0)
[2023-10-29 09:32] LABS: Free T4 (Free Thyroxine) 0.93 ng/dL (0.71-1.85); Thyroid Stimulating Hormone 2.05 uIU/mL (0.32-4.0)
[2023-10-29 09:40] LABS: Folate 8.4 ng/mL (> or = 4.0); Vitamin B12 507 pg/mL (200-900)
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
[2023-10-29] MEDS: hydrOXYzine HCL 25 MG TABLET PO (13:06)
[2023-10-29] MEDS: Acetaminophen 325 MG TABLET 650 MG PO (13:06)
[2023-10-29 20:27] VITALS: BP 107/60; PULSE 56; RESP 18; TEMP 36.8; O2SAT 96
[2023-10-29] MEDS: Melatonin 3 MG TABLET 6 MG PO (20:47)
[2023-10-30 08:11] VITALS: BP 105/51; PULSE 48; RESP 16; TEMP 36.8; O2SAT 97
[2023-10-30] MEDS: levETIRAcetam 1,000 MG TABLET 2000 MG PO ×2 (08:32→20:50)
[2023-10-30] MEDS: Divalproex Sodium ER 500 MG TAB.ER.24H PO ×2 (08:32→20:50)
[2023-10-30] MEDS: clonazePAM 1 MG TABLET PO ×2 (08:32→20:50)
[2023-10-30] MEDS: Sertraline HCL 25 MG TABLET 75 MG PO (08:32)
[2023-10-30] MEDS: lamoTRIgine 100 MG TABLET 300 MG PO ×2 (08:32→20:50)
[2023-10-30] MEDS: Ibuprofen 600 MG TABLET PO ×2 (09:05→20:49)
--- NOTE | 2023-10-30 10:03 | P.PNPSI_ITS ---
Subjective Subjective Date of Service: 10/30/23 Reason For Visit: Bipolar disorder w/ psychotic features Interim History: Met with patient; discussed with team Patient reports that he still depressed but overall his mood is better. Still has some SI but much less and says here he feels safe. He says it is ironic that he feels safer here than in his own home. Talked about his brother and he reports he still has some HI towards his brother but that it is less intense. He feels that time is needed for to dissipate. He was open to considering that his brother is just a person to who has his own problems and like everybody will sometimes do and say upsetting things; he is considering if he can forgive his brother. Reviewed medication regimen; patient said Zoloft has helped him with his anger and agreed to increase dose Mental Status Exam Mental Status Exam Narrative: Pt is alert and oriented; behavior is cooperative, friendly and calm; patient is not in distress; dressed in casual attire with unkempt hair, carlos and marginal hygiene; mood is described as depressed... Little better and affect congruent, brighter; eye contact appropriate; Speech is normal rate, volume and prosody and not pressured; no psychomotor agitation/retardation present; thought process is organized and goal directed; Thought content is on struggles with his brother and still with intermittent SI and HI though he says less intense and thinks feelings maybe waning; otherwise pertinent to relevant topics and without any delusional content, paranoid ideations or grandiosity; There is no evidence of perceptual disturbance. Patients insight and judgment impaired but improved Diagnostics Vital Signs (24Hr): Vital Signs - 24 hr 10/29/23 20:27 10/30/23 08:11 Temperature 98.2 F 98.2 F Pulse Rate 56 48 L Respiratory Rate 18 16 Blood Pressure 107/60 105/51 L Pulse Oximetry 96 97 Oxygen Delivery Method Room Air Room Air BMI result Body Mass Index 31.6 Labs 10/26/23 18:32 10/26/23 18:32 Labs: Laboratory Results - last 48 hr 10/29/23 08:32 Estimat Average Glucose 94 Hemoglobin A1c % 4.9 Magnesium 2.1 Triglycerides 41 Cholesterol 196 LDL Cholesterol, Calc 120 H HDL Cholesterol 68 Vitamin B12 507 Folate 8.4 TSH 2.05 Free T4 0.93 Imaging Radiology Impressions: ITS Impressions Head CT 10/27/23 19:40 IMPRESSION: No acute intracranial pathology. Electronically signed by: Missy Laws MD 10/27/2023 09:11 PM EDT Medications Medications Current Medications Acetaminophen (Acetaminophen 325 Mg Tablet) 650 mg PO Q6H PRN PRN Reason: Headache/Pain Mild Scale (1-3) Last Admin: 10/29/23 13:06 Dose: 650 mg Al Hydroxide/Mg Hydroxide (Magnesium Hydrox/Alum Hydrox 30 Ml Oral.Susp) 30 ml PO Q6H PRN PRN Reason: Heartburn/Nausea Clonazepam (Clonazepam 1 Mg Tablet) 1 mg PO BID [facility] Last Admin: 10/30/23 08:32 Dose: 1 mg Divalproex Sodium (Divalproex Sodium Er 500 Mg Tab.Er.24h) 500 mg PO BID [facility] Last Admin: 10/30/23 08:32 Dose: 500 mg Hydroxyzine HCl (Hydroxyzine Hcl 25 Mg Tablet) 25 mg PO Q6H PRN PRN Reason: Anxiety Last Admin: 10/29/23 13:06 Dose: 25 mg Ibuprofen (Ibuprofen 600 Mg Tablet) 600 mg PO Q6H PRN PRN Reason: Pain, Mild (Pain Scale 1-3) Last Admin: 10/30/23 09:05 Dose: 600 mg Lamotrigine (Lamotrigine 100 Mg Tablet) 300 mg PO BID [facility] Last Admin: 10/30/23 08:32 Dose: 300 mg Levetiracetam (Levetiracetam 1,000 Mg Tablet) 2,000 mg PO BID [facility] Last Admin: 10/30/23 08:32 Dose: 2,000 mg Magnesium Hydroxide (Milk Of Magnesia 30 Ml Oral.Susp) 30 ml PO DAILY PRN PRN Reason: Constipation Melatonin (Melatonin 3 Mg Tablet) 6 mg PO BEDTIME PRN PRN Reason: Insomnia Last Admin: 10/29/23 20:47 Dose: 6 mg Nicotine (Nicotine 21 Mg Patch.Td24) 21 mg TRANSDERMA DAILY PRN PRN Reason: smoking cessation Last Admin: 10/29/23 08:39 Dose: 21 mg Nicotine (Nicotine 21 Mg Patch.Td24) 21 mg TRANSDERMA DAILY PRN PRN Reason: nicotine cravings Nicotine Polacrilex (Nicotine Polacrilex 2 Mg Gum) 4 mg BUCCAL Q2H PRN PRN Reason: Nicotine Cravings Nicotine Polacrilex (Nicotine Polacrilex 2 Mg Gum) 4 mg BUCCAL Q2H PRN PRN Reason: Nicotine Cravings Sertraline HCl (Sertraline Hcl 25 Mg Tablet) 75 mg PO DAILY [facility] Last Admin: 10/30/23 08:32 Dose: 75 mg Trazodone HCl (Trazodone Hcl 50 Mg Tablet) 50 mg PO BEDTIME MRX1 PRN PRN Reason: Insomnia Allergies Allergies Allergy/AdvReac Type Severity Reaction Status Date / Time erythromycin base Allergy Unknown UNKNOWN Verified 10/26/23 17:11 [Erythromycin Base] Assessment & Plan Assessment & Plan (1) Bipolar disorder: Status: Acute Code(s): F31.9 - Bipolar disorder, unspecified (2) PTSD (post-traumatic stress disorder): Status: Acute Code(s): F43.10 - Post-traumatic stress disorder, unspecified (3) Alcohol dependence: Status: Acute Code(s): F10.20 - Alcohol dependence, uncomplicated Plan Patient is a 43-year-old male with history of bipolar disorder, PTSD and alcohol use disorder who self presented to [facility] reporting suicidal and homicidal ideation with plan to stab people and was transferred to [facility] ER. Hospital course: 10/29 Patient reports that he still depressed but overall his mood is better. Still has some SI but much less and says here he feels safe. He says it is ironic that he feels safer here than in his own home. Talked about his brother and he reports he still has some HI towards his brother but that it is less intense. He feels that time is needed for to dissipate. He was open to considering that his brother is just a person to who has his own problems and like everybody will sometimes do and say upsetting things; he is considering if he can forgive his brother. -Reviewed medication regimen; patient said Zoloft has helped him with his anger and agreed to increase dose -patient has remained cooperative calm and pleasant with peers and staff; appropriate with both peers and staff and in good behavioral and impulse control. Patient going to groups which he says is helping. Plan: CV 15 minute safety checks Increase Zoloft to 100 mg Will get labs for Depakote (used his antiepileptic) Obtain collateral Duty to warn: lime kiln worker helper notified Encourage groups Discharge planning Patient educated on: diagnosis, medication risk/benefits and therapeutic strategies Informed Consent: understands Reason for continued inpatient stay Substantial Risk for: rapid decompensation Time Spent With Patient Time: Total time managing care of this patient today ____ minutes.
[2023-10-30] MEDS: Acetaminophen 325 MG TABLET 650 MG PO (12:09)
[2023-10-30 19:50] VITALS: BP 122/69; PULSE 55; RESP 16; TEMP 36.6; O2SAT 97
[2023-10-30 20:10] VITALS: BP 122/69; PULSE 71; TEMP 36.6; O2SAT 97
[2023-10-30] MEDS: traZODone HCL 50 MG TABLET PO (20:50)
[2023-10-30] MEDS: Melatonin 3 MG TABLET 6 MG PO (20:50)
[2023-10-31 01:34] LABS: Levetiracetam Keppra 25.7 mcg/mL (6.0-46.0)
[2023-10-31 08:00] VITALS: BP 91/43; PULSE 52; RESP 16; TEMP 36.4; O2SAT 98
[2023-10-31] MEDS: lamoTRIgine 100 MG TABLET 300 MG PO ×2 (08:52→20:30)
[2023-10-31] MEDS: Divalproex Sodium ER 500 MG TAB.ER.24H PO ×2 (08:52→20:29)
[2023-10-31] MEDS: Sertraline HCL 100 MG TABLET PO (08:52)
[2023-10-31] MEDS: clonazePAM 1 MG TABLET PO ×2 (08:53→20:29)
[2023-10-31] MEDS: levETIRAcetam 1,000 MG TABLET 2000 MG PO ×2 (08:53→20:29)
[2023-10-31] MEDS: Ibuprofen 600 MG TABLET PO ×3 (09:27→21:38)
[2023-10-31] MEDS: Acetaminophen 325 MG TABLET 650 MG PO (13:24)
[2023-10-31] MEDS: hydrOXYzine HCL 25 MG TABLET PO ×2 (13:40→20:50)
--- NOTE | 2023-10-31 15:23 | HO.PSYCHPN ---
Subjective Subjective Date of Service: 10/31/23 Reason For Visit: Bipolar disorder w/ psychotic features Interim History: met with patient; discussed with team pt reports feeling more anger today, though he is not sure why. He said he's staying in his room to avoid people so as not to have an confrontation. However, he thinks he's calming down more now and re-joining the milue. That said he denied having HI towards his brother and thinks that thought is waning. Instead, he just wants to get a restraining order on him Mental Status Exam Mental Status Exam Narrative: Pt is alert and oriented; behavior is cooperative, friendly and calm; patient is not in distress; dressed in casual attire with unkempt hair, carlos and marginal hygiene; mood is described as angry though affect still calmer, brighter; eye contact appropriate; Speech is normal rate, volume and prosody and not pressured; no psychomotor agitation/retardation present; thought process is organized and goal directed; Thought content is on struggles with his brother and still with intermittent SI and HI though he says less intense and thinks feelings maybe waning; otherwise pertinent to relevant topics and without any delusional content, paranoid ideations or grandiosity; There is no evidence of perceptual disturbance. Patients insight and judgment impaired but improving Diagnostics Vital Signs (24Hr): Vital Signs - 24 hr 10/30/23 19:50 10/30/23 20:10 10/31/23 08:00 Temperature 97.8 F 97.8 F 97.6 F Pulse Rate 55 71 52 Respiratory Rate 16 16 Blood Pressure 122/69 122/69 91/43 L Pulse Oximetry 97 97 98 Oxygen Delivery Method Room Air Room Air Room Air BMI result Body Mass Index 31.6 Labs 10/26/23 18:32 10/26/23 18:32 Labs: Laboratory Results - last 48 hr 10/26/23 18:32 Levetiracetam 25.7 Imaging Radiology Impressions: ITS Impressions Head CT 10/27/23 19:40 IMPRESSION: No acute intracranial pathology. Electronically signed by: Missy Laws MD 10/27/2023 09:11 PM EDT Medications Medications Current Medications Acetaminophen (Acetaminophen 325 Mg Tablet) 650 mg PO Q6H PRN PRN Reason: Headache/Pain Mild Scale (1-3) Last Admin: 10/31/23 13:24 Dose: 650 mg Al Hydroxide/Mg Hydroxide (Magnesium Hydrox/Alum Hydrox 30 Ml Oral.Susp) 30 ml PO Q6H PRN PRN Reason: Heartburn/Nausea Clonazepam (Clonazepam 1 Mg Tablet) 1 mg PO BID [facility] Last Admin: 10/31/23 08:53 Dose: 1 mg Divalproex Sodium (Divalproex Sodium Er 500 Mg Tab.Er.24h) 500 mg PO BID [facility] Last Admin: 10/31/23 08:52 Dose: 500 mg Hydroxyzine HCl (Hydroxyzine Hcl 25 Mg Tablet) 25 mg PO Q6H PRN PRN Reason: Anxiety Last Admin: 10/31/23 13:40 Dose: 25 mg Ibuprofen (Ibuprofen 600 Mg Tablet) 600 mg PO Q6H PRN PRN Reason: Pain, Mild (Pain Scale 1-3) Last Admin: 10/31/23 09:27 Dose: 600 mg Lamotrigine (Lamotrigine 100 Mg Tablet) 300 mg PO BID [facility] Last Admin: 10/31/23 08:52 Dose: 300 mg Levetiracetam (Levetiracetam 1,000 Mg Tablet) 2,000 mg PO BID [facility] Last Admin: 10/31/23 08:53 Dose: 2,000 mg Magnesium Hydroxide (Milk Of Magnesia 30 Ml Oral.Susp) 30 ml PO DAILY PRN PRN Reason: Constipation Melatonin (Melatonin 3 Mg Tablet) 6 mg PO BEDTIME PRN PRN Reason: Insomnia Last Admin: 10/30/23 20:50 Dose: 6 mg Nicotine (Nicotine 21 Mg Patch.Td24) 21 mg TRANSDERMA DAILY PRN PRN Reason: nicotine cravings Nicotine Polacrilex (Nicotine Polacrilex 2 Mg Gum) 4 mg BUCCAL Q2H PRN PRN Reason: Nicotine Cravings Sertraline HCl (Sertraline Hcl 100 Mg Tablet) 100 mg PO DAILY [facility] Last Admin: 10/31/23 08:52 Dose: 100 mg Trazodone HCl (Trazodone Hcl 50 Mg Tablet) 50 mg PO BEDTIME MRX1 PRN PRN Reason: Insomnia Last Admin: 10/30/23 20:50 Dose: 50 mg Allergies Allergies Allergy/AdvReac Type Severity Reaction Status Date / Time erythromycin base Allergy Unknown UNKNOWN Verified 10/26/23 17:11 [Erythromycin Base] Assessment & Plan Assessment & Plan (1) Bipolar disorder: Status: Acute Code(s): F31.9 - Bipolar disorder, unspecified (2) PTSD (post-traumatic stress disorder): Status: Acute Code(s): F43.10 - Post-traumatic stress disorder, unspecified (3) Alcohol dependence: Status: Acute Code(s): F10.20 - Alcohol dependence, uncomplicated Plan Patient is a 43-year-old male with history of bipolar disorder, PTSD and alcohol use disorder who self presented [facility] reporting suicidal and homicidal ideation with plan to stab people and was transferred to [facility] ER. Hospital course: 10/29 Patient reports that he still depressed but overall his mood is better. Still has some SI but much less and says here he feels safe. He says it is ironic that he feels safer here than in his own home. Talked about his brother and he reports he still has some HI towards his brother but that it is less intense. He feels that time is needed for to dissipate. He was open to considering that his brother is just a person to who has his own problems and like everybody will sometimes do and say upsetting things; he is considering if he can forgive his brother. -Reviewed medication regimen; patient said Zoloft has helped him with his anger and agreed to increase dose -patient has remained cooperative calm and pleasant with peers and staff; appropriate with both peers and staff and in good behavioral and impulse control. Patient going to groups which he says is helping. 10/30 pt reports feeling more anger today, though he is not sure why. He said he's staying in his room to avoid people so as not to have an confrontation. However, he thinks he's calming down more now and re-joining the milue. That said he denied having HI towards his brother and thinks that thought is waning. Instead, he just wants to get a restraining order on him -discussed meds Plan: CV 15 minute safety checks Increased Zoloft to 100 mg Will get labs for Depakote (used his antiepileptic) Obtain collateral Duty to warn: mastic worker notified Encourage groups Discharge planning Patient educated on: diagnosis, medication risk/benefits and therapeutic strategies Informed Consent: understands Reason for continued inpatient stay Substantial Risk for: rapid decompensation Time Spent With Patient Time: Total time managing care of this patient today ____ minutes.
[2023-10-31 20:00] VITALS: BP 128/56; PULSE 56; RESP 16; TEMP 36.7; O2SAT 98
[2023-10-31] MEDS: Melatonin 3 MG TABLET 6 MG PO (20:34)
[2023-11-01 08:06] VITALS: BP 98/45; PULSE 53; RESP 16; TEMP 36.4; O2SAT 96
[2023-11-01 08:16] VITALS: BP 102/55; PULSE 51
[2023-11-01] MEDS: lamoTRIgine 100 MG TABLET 300 MG PO ×2 (08:25→20:14)
[2023-11-01] MEDS: Divalproex Sodium ER 500 MG TAB.ER.24H PO ×2 (08:25→20:14)
[2023-11-01] MEDS: clonazePAM 1 MG TABLET PO ×2 (08:25→20:15)
[2023-11-01] MEDS: levETIRAcetam 1,000 MG TABLET 2000 MG PO ×2 (08:25→20:14)
[2023-11-01] MEDS: Sertraline HCL 100 MG TABLET PO (08:25)
[2023-11-01] MEDS: hydrOXYzine HCL 25 MG TABLET PO ×2 (09:16→15:52)
[2023-11-01] MEDS: Ibuprofen 600 MG TABLET PO ×2 (09:16→20:32)
--- NOTE | 2023-11-01 12:41 | HO.PSYCHPN ---
Subjective Subjective Date of Service: 11/01/23 Reason For Visit: Bipolar disorder w/ psychotic features Subjective Notes: Conditional Voluntary Healthcare Proxy: No Guardianship: No Medical Problems Affecting Mental Status: No Interim History: Discussed anger and voices. Review of medications-Sertraline helps temper and it can be bad Asks for a trial for voices. Discussed low dose Olanzapine, 5 mg HS which he agrees with. Medication Compliance: Yes Side effects from medications: No Attending Groups: Intermittent Review of Systems Acute medical concerns: No Medical Review of Systems: unchanged Review of Systems Review of Systems Yes all other systems are reviewed and are negative Mental Status Exam Mental Status Exam Patient Appearance: Appropriate Patient Orientation: Person, Place, Time and Situation Level of Consciousness: Alert Patient Behavior: Appropriate, Talkative, Cooperative and Good Eye Contact Mood Description: Depressed Affect Description: Labile and Angry Patient Cognition Impaired: No Ability to Follow Directions: Good Speech Pattern: Spontaneous Speech Memory Description: Intact Hallucinations: Auditory Delusions: Not Present and Paranoid Ideation Perceptual Disturbances: Derealization Thought Process: Rumination Thought Content: positive for Perseveration, positive for Suicidal Ideation and positive for Homicidal Ideation Depressive Symptoms: Unhappiness, Thoughts of /Suicide and Back Pain Judgement: Fair Diagnostics Vital Signs (24Hr): Vital Signs - 24 hr 10/31/23 20:00 11/01/23 08:06 11/01/23 08:16 Temperature 98.1 F 97.5 F Pulse Rate 56 53 51 Respiratory Rate 16 16 Blood Pressure 128/56 L 98/45 L 102/55 L Pulse Oximetry 98 96 Oxygen Delivery Method Room Air Room Air BMI result Body Mass Index 31.6 Labs 10/26/23 18:32 11/03/23 11:40 Labs: Laboratory Results - last 48 hr 10/26/23 18:32 Levetiracetam 25.7 Imaging Radiology Impressions: ITS Impressions Head CT 10/27/23 19:40 IMPRESSION: No acute intracranial pathology. Electronically signed by: Missy Laws MD 10/27/2023 09:11 PM EDT Medications Medications Current Medications Acetaminophen (Acetaminophen 325 Mg Tablet) 650 mg PO Q6H PRN PRN Reason: Headache/Pain Mild Scale (1-3) Last Admin: 10/31/23 13:24 Dose: 650 mg Al Hydroxide/Mg Hydroxide (Magnesium Hydrox/Alum Hydrox 30 Ml Oral.Susp) 30 ml PO Q6H PRN PRN Reason: Heartburn/Nausea Clonazepam (Clonazepam 1 Mg Tablet) 1 mg PO BID [facility] Last Admin: 11/01/23 08:25 Dose: 1 mg Divalproex Sodium (Divalproex Sodium Er 500 Mg Tab.Er.24h) 500 mg PO BID [facility] Last Admin: 11/01/23 08:25 Dose: 500 mg Hydroxyzine HCl (Hydroxyzine Hcl 25 Mg Tablet) 25 mg PO Q6H PRN PRN Reason: Anxiety Last Admin: 11/01/23 09:16 Dose: 25 mg Ibuprofen (Ibuprofen 600 Mg Tablet) 600 mg PO Q6H PRN PRN Reason: Pain, Mild (Pain Scale 1-3) Last Admin: 11/01/23 09:16 Dose: 600 mg Lamotrigine (Lamotrigine 100 Mg Tablet) 300 mg PO BID [facility] Last Admin: 11/01/23 08:25 Dose: 300 mg Levetiracetam (Levetiracetam 1,000 Mg Tablet) 2,000 mg PO BID [facility] Last Admin: 11/01/23 08:25 Dose: 2,000 mg Magnesium Hydroxide (Milk Of Magnesia 30 Ml Oral.Susp) 30 ml PO DAILY PRN PRN Reason: Constipation Melatonin (Melatonin 3 Mg Tablet) 6 mg PO BEDTIME PRN PRN Reason: Insomnia Last Admin: 10/31/23 20:34 Dose: 6 mg Nicotine (Nicotine 21 Mg Patch.Td24) 21 mg TRANSDERMA DAILY PRN PRN Reason: nicotine cravings Nicotine Polacrilex (Nicotine Polacrilex 2 Mg Gum) 4 mg BUCCAL Q2H PRN PRN Reason: Nicotine Cravings Sertraline HCl (Sertraline Hcl 100 Mg Tablet) 100 mg PO DAILY [facility] Last Admin: 11/01/23 08:25 Dose: 100 mg Trazodone HCl (Trazodone Hcl 50 Mg Tablet) 50 mg PO BEDTIME MRX1 PRN PRN Reason: Insomnia Last Admin: 10/30/23 20:50 Dose: 50 mg Allergies Allergies Allergy/AdvReac Type Severity Reaction Status Date / Time erythromycin base Allergy Unknown UNKNOWN Verified 10/26/23 17:11 [Erythromycin Base] Assessment & Plan Assessment & Plan (1) Bipolar disorder: Status: Acute Code(s): F31.9 - Bipolar disorder, unspecified (2) PTSD (post-traumatic stress disorder): Status: Acute Code(s): F43.10 - Post-traumatic stress disorder, unspecified (3) Alcohol dependence: Status: Acute Code(s): F10.20 - Alcohol dependence, uncomplicated Plan Patient is a 43-year-old male with history of bipolar disorder, PTSD and alcohol use disorder who self presented to [facility] reporting suicidal and homicidal ideation with plan to stab people and was transferred to [facility] ER. Hospital course: 10/29 Patient reports that he still depressed but overall his mood is better. Still has some SI but much less and says here he feels safe. He says it is ironic that he feels safer here than in his own home. Talked about his brother and he reports he still has some HI towards his brother but that it is less intense. He feels that time is needed for to dissipate. He was open to considering that his brother is just a person to who has his own problems and like everybody will sometimes do and say upsetting things; he is considering if he can forgive his brother. -Reviewed medication regimen; patient said Zoloft has helped him with his anger and agreed to increase dose -patient has remained cooperative calm and pleasant with peers and staff; appropriate with both peers and staff and in good behavioral and impulse control. Patient going to groups which he says is helping. 10/30 pt reports feeling more anger today, though he is not sure why. He said he's staying in his room to avoid people so as not to have an confrontation. However, he thinks he's calming down more now and re-joining the milue. That said he denied having HI towards his brother and thinks that thought is waning. Instead, he just wants to get a restraining order on him -discussed meds 10/31: Review of regime. Pt wanting to trial meds to help voices. Olanzapine 5 mg HS Wanting to work on issues with temper. Plan: CV 15 minute safety checks Increased Zoloft to 100 mg Will get labs for Depakote (used his antiepileptic) Obtain collateral Duty to warn: flume worker notified Encourage groups Discharge planning Reason for continued inpatient stay Substantial Risk for: rapid decompensation and med/psych decompensation Time Spent With Patient Time: Total time managing care of this patient today ____ minutes.
[2023-11-01] MEDS: Acetaminophen 325 MG TABLET 650 MG PO (13:37)
[2023-11-01 16:09] VITALS: BP 132/60; PULSE 58; RESP 16; TEMP 36.9; O2SAT 96
[2023-11-01] MEDS: OLANZapine 5 MG TABLET PO (20:14)
[2023-11-01] MEDS: Melatonin 3 MG TABLET 6 MG PO (20:31)
[2023-11-02 08:00] VITALS: BP 133/55; PULSE 49; RESP 14; TEMP 36.6; O2SAT 97
[2023-11-02] MEDS: levETIRAcetam 1,000 MG TABLET 2000 MG PO ×2 (09:08→21:09)
[2023-11-02] MEDS: Sertraline HCL 100 MG TABLET PO (09:08)
[2023-11-02] MEDS: clonazePAM 1 MG TABLET PO ×2 (09:08→21:11)
[2023-11-02] MEDS: Divalproex Sodium ER 500 MG TAB.ER.24H PO ×2 (09:08→21:11)
[2023-11-02] MEDS: lamoTRIgine 100 MG TABLET 300 MG PO ×2 (09:08→21:11)
[2023-11-02] MEDS: Ibuprofen 600 MG TABLET PO ×2 (09:39→16:38)
[2023-11-02] MEDS: hydrOXYzine HCL 25 MG TABLET PO (09:40)
--- NOTE | 2023-11-02 11:01 | HO.PSYCHPN ---
Subjective Subjective Date of Service: 11/02/23 Reason For Visit: Bipolar disorder w/ psychotic features Subjective Notes: Conditional Voluntary Healthcare Proxy: No Guardianship: No Medical Problems Affecting Mental Status: No Interim History: Reporting back pain. Discussed prn Flexeril which he has not trialed before. Will do a brief trial. Increase in milieu visability today. Reports no adverse effect from Olanzapine, some relief actually . Talking with social service about current living situation and wanting to make a move, however, not aware of the complexities this may involve. Medication Compliance: Yes Side effects from medications: No Attending Groups: Intermittent Review of Systems Acute medical concerns: No Medical Review of Systems: unchanged Review of Systems Review of Systems Yes all other systems are reviewed and are negative (denies) Mental Status Exam Mental Status Exam Patient Appearance: Appropriate Patient Orientation: Person, Place, Time and Situation Level of Consciousness: Alert Patient Behavior: Appropriate, Talkative, Cooperative and Good Eye Contact Mood Description: Depressed Affect Description: Labile and Angry Patient Cognition Impaired: No Ability to Follow Directions: Good Speech Pattern: Spontaneous Speech Memory Description: Intact Hallucinations: Auditory Delusions: Not Present and Paranoid Ideation Perceptual Disturbances: Derealization Thought Process: Rumination Thought Content: positive for Perseveration, positive for Suicidal Ideation and positive for Homicidal Ideation Depressive Symptoms: Unhappiness, Thoughts of /Suicide and Back Pain Judgement: Fair Diagnostics Vital Signs (24Hr): Vital Signs - 24 hr 11/01/23 16:09 11/02/23 08:00 Temperature 98.4 F 97.9 F Pulse Rate 58 49 L Respiratory Rate 16 14 Blood Pressure 132/60 133/55 L Pulse Oximetry 96 97 Oxygen Delivery Method Room Air Room Air BMI result Body Mass Index 31.6 Labs 10/26/23 18:32 11/03/23 11:40 Imaging Radiology Impressions: ITS Impressions Head CT 10/27/23 19:40 IMPRESSION: No acute intracranial pathology. Electronically signed by: Missy Laws MD 10/27/2023 09:11 PM EDT Medications Medications Current Medications Acetaminophen (Acetaminophen 325 Mg Tablet) 650 mg PO Q6H PRN PRN Reason: Headache/Pain Mild Scale (1-3) Last Admin: 11/01/23 13:37 Dose: 650 mg Al Hydroxide/Mg Hydroxide (Magnesium Hydrox/Alum Hydrox 30 Ml Oral.Susp) 30 ml PO Q6H PRN PRN Reason: Heartburn/Nausea Clonazepam (Clonazepam 1 Mg Tablet) 1 mg PO BID [facility] Last Admin: 11/02/23 09:08 Dose: 1 mg Divalproex Sodium (Divalproex Sodium Er 500 Mg Tab.Er.24h) 500 mg PO BID [facility] Last Admin: 11/02/23 09:08 Dose: 500 mg Hydroxyzine HCl (Hydroxyzine Hcl 25 Mg Tablet) 25 mg PO Q6H PRN PRN Reason: Anxiety Last Admin: 11/02/23 09:40 Dose: 25 mg Ibuprofen (Ibuprofen 600 Mg Tablet) 600 mg PO Q6H PRN PRN Reason: Pain, Mild (Pain Scale 1-3) Last Admin: 11/02/23 09:39 Dose: 600 mg Lamotrigine (Lamotrigine 100 Mg Tablet) 300 mg PO BID [facility] Last Admin: 11/02/23 09:08 Dose: 300 mg Levetiracetam (Levetiracetam 1,000 Mg Tablet) 2,000 mg PO BID [facility] Last Admin: 11/02/23 09:08 Dose: 2,000 mg Magnesium Hydroxide (Milk Of Magnesia 30 Ml Oral.Susp) 30 ml PO DAILY PRN PRN Reason: Constipation Melatonin (Melatonin 3 Mg Tablet) 6 mg PO BEDTIME PRN PRN Reason: Insomnia Last Admin: 11/01/23 20:31 Dose: 6 mg Nicotine (Nicotine 21 Mg Patch.Td24) 21 mg TRANSDERMA DAILY PRN PRN Reason: nicotine cravings Nicotine Polacrilex (Nicotine Polacrilex 2 Mg Gum) 4 mg BUCCAL Q2H PRN PRN Reason: Nicotine Cravings Olanzapine (Olanzapine 5 Mg Tablet) 5 mg PO BEDTIME [facility] Last Admin: 11/01/23 20:14 Dose: 5 mg Sertraline HCl (Sertraline Hcl 100 Mg Tablet) 100 mg PO DAILY [facility] Last Admin: 11/02/23 09:08 Dose: 100 mg Trazodone HCl (Trazodone Hcl 50 Mg Tablet) 50 mg PO BEDTIME MRX1 PRN PRN Reason: Insomnia Last Admin: 10/30/23 20:50 Dose: 50 mg Allergies Allergies Allergy/AdvReac Type Severity Reaction Status Date / Time erythromycin base Allergy Unknown UNKNOWN Verified 10/26/23 17:11 [Erythromycin Base] Assessment & Plan Assessment & Plan (1) Bipolar disorder: Status: Acute Code(s): F31.9 - Bipolar disorder, unspecified (2) PTSD (post-traumatic stress disorder): Status: Acute Code(s): F43.10 - Post-traumatic stress disorder, unspecified (3) Alcohol dependence: Status: Acute Code(s): F10.20 - Alcohol dependence, uncomplicated Plan Patient is a 43-year-old male with history of bipolar disorder, PTSD and alcohol use disorder who self presented to [facility] reporting suicidal and homicidal ideation with plan to stab people and was transferred to [facility] ER. Hospital course: 10/29 Patient reports that he still depressed but overall his mood is better. Still has some SI but much less and says here he feels safe. He says it is ironic that he feels safer here than in his own home. Talked about his brother and he reports he still has some HI towards his brother but that it is less intense. He feels that time is needed for to dissipate. He was open to considering that his brother is just a person to who has his own problems and like everybody will sometimes do and say upsetting things; he is considering if he can forgive his brother. -Reviewed medication regimen; patient said Zoloft has helped him with his anger and agreed to increase dose -patient has remained cooperative calm and pleasant with peers and staff; appropriate with both peers and staff and in good behavioral and impulse control. Patient going to groups which he says is helping. 10/30 pt reports feeling more anger today, though he is not sure why. He said he's staying in his room to avoid people so as not to have an confrontation. However, he thinks he's calming down more now and re-joining the milue. That said he denied having HI towards his brother and thinks that thought is waning. Instead, he just wants to get a restraining order on him -discussed meds 11/02/23: Flexeril 10 mg tid prn back spasm/pain Continue tx Tolerating Olanzapine Plan: CV 15 minute safety checks Increased Zoloft to 100 mg Will get labs for Depakote (used his antiepileptic) Obtain collateral Duty to warn: alteration worker notified Encourage groups Discharge planning Reason for continued inpatient stay Substantial Risk for: rapid decompensation Time Spent With Patient Time: Total time managing care of this patient today ____ minutes.
[2023-11-02] MEDS: Acetaminophen 325 MG TABLET 650 MG PO ×2 (12:27→21:10)
[2023-11-02] MEDS: Cyclobenzaprine HCl 10 MG TABLET PO (18:48)
[2023-11-02 20:00] VITALS: BP 135/60; PULSE 57; RESP 16; TEMP 36.8; O2SAT 98
[2023-11-02] MEDS: OLANZapine 5 MG TABLET PO (21:11)
--- NOTE | 2023-11-03 | EEG_ITS ---
This is a 16-channel EEG with an EKG lead. Background EEG rhythm is 7 to an 8 hertz 5 to 50 microvolt posteriorly, lower amplitude fast anteriorly. Frequent sharp and sharp and slow wave discharges were noted. Many times originating right hemisphere and many times generalize. The patient did not have any obvious symptoms related to that. Cardiac lead did not reveal any significant abnormality. Photic stimulation did not produce any significant driving. Hyperventilation was not performed. IMPRESSION: Abnormal EEG suggestive of underlying tendency for epilepsy with probably right hemispheric focus. MD DEV Soni/TOMMY / [id number]
--- NOTE | 2023-11-03 06:49 | PC.NURSE ---
At 0614 patient alerted PATY Banks that he was concerned about his shaking and said he would probably have a seizure. At 0615 patient was observed to have a seizure that lasted for less than one minute with urine continence noted. Patient's vitals: 98.2 temp RR 16, O2 sat on room air 96%, pulse 67, BP 192/81. Patient placed in rescue position. Patient vitals rechecked at 0645 BP 140/67, pulse 64. Patient awake, alert and oriented at this time. Patient assisted into clean clothes after help with cleansing.
--- NOTE | 2023-11-03 06:57 | PC.NURSE ---
Dr. Kim notified via [place] Text. At 0655 patient reported he fell on his knees in his bathroom while changing his pants. He was seen on his knees in his bathroom by PATY Valencia. Patient said he bumped the right side of his head, no loss of consciousness. Vitals taken: BP 145/73, RR 16, Pulse 67, O2 sats on room air 97%, temp 97.3. Patient assisted back in bed and encouraged to remain in bed. Dr. Kim notified via [place] Text. New orders received for q 2 hour neuro checks, head CT and hospitalist consult. Safety tool updated. Hospitalist called and will speak with Dr. Kim.
[2023-11-03 08:00] VITALS: BP 114/59; PULSE 62; RESP 18; TEMP 36.8; O2SAT 94
[2023-11-03] MEDS: levETIRAcetam 1,000 MG TABLET 2000 MG PO (08:27)
[2023-11-03] MEDS: Sertraline HCL 100 MG TABLET PO (08:27)
[2023-11-03] MEDS: Divalproex Sodium ER 500 MG TAB.ER.24H PO (08:27)
[2023-11-03] MEDS: lamoTRIgine 100 MG TABLET 300 MG PO (08:28)
[2023-11-03] MEDS: clonazePAM 1 MG TABLET PO (08:28)
[2023-11-03] MEDS: LORazepam 2 MG/ML VIAL 1 MG IM ×2 (08:53→18:37)
[2023-11-03] MEDS: Ibuprofen 600 MG TABLET PO (10:20)
--- NOTE | 2023-11-03 10:48 | PC.NURSE ---
Pt was sent down for a Head Ct at approximately 08:30 due to witnessed seizure earlier in the morning. MHC that was sent down with him tiger texted TW with concern that pt was not looking nor feeling well. TW met patient and MHC on second floor just after CT was completed. Pt reported not feeling well, was in wheelchair and was brought back to his room. Upon entering his room pt had a seizure at 08:44 noted to be approximately 90 seconds. Provider was notified and pt was ordered and given 1mg Ativan IM at 08:53. Pt was returned to his bed once coherent. Pt placed on 1:1 observation for safety.
--- NOTE | 2023-11-03 10:54 | P.CONHOSP_ITS ---
History of Present Illness Data of Consult Service Date: 11/03/23 Requesting physician: Isabel Andrews Primary Care Provider: MD MITCHELL Lee Reason for consult: seizures 43-year-old male with history of COPD, history of alcohol dependence reports only occasional alcohol use now, bipolar disorder, PTSD, intractable epilepsy admitted to adult Psychiatry with consult placed hospitalist service for evaluation of seizure activity. The patient reports compliance with Depakote, Keppra, and Lamictal. However on discussion with psychiatrist, the patient is believed to have fragmented compliance and is very inconsistent with follow-ups. He has previously been [place] [facility] but was discharged from practice after missing nearly 72 appointments. He is also no showed appointments at [facility]. He reports his last seizure was while admitted [facility] Unclear how accurate history is. He has been admitted to psych since 10/28 and was restarted on keppra 2000mg, depakote 500mg, and lamotrigine 300mg (unclear when last doses were). This morning just prior to 6 am, reported to have generalized seizure lasting about 1 minute following by a 10-15 minutes period of confusion, lethargy. About 15 minutes after seizure around 0655 the patient reportedly fell to his knees in the bathroom while changing his pants. He did hit the right side of his head, not on thinners. No LOC. He then had second 1.5minute seizure around 830 am followed by similar post ictal state. Given 1mg lorazepam for seizure. He was then given additional doses of the above maintenance medications. Levels are pending. He reports prodrome of metallic taste in mouth prior to seizure followed by black out. He does not recall episodes. Pt a&ox3 on exam, resting in bed without any ongoing complaints. Review of Systems 2 Review of Systems: Yes all other systems are reviewed and are negative [facility] Medical History COPD (chronic obstructive pulmonary disease) Alcohol dependence Bipolar disorder Intractable epilepsy Social History Household Members: Family Household Members Other:: Brothers, Uncle and a woman renting a room named [place] Housing: House Do you presently have visiting nurse or other home services: No Alcohol intake: current Alcohol intake frequency: holidays/special occasions only Alcohol type: beer and hard liquor Patient Tobacco Use Status: Current everyday Tobacco user Tobacco use type: Cigarette Smoked in Last 30 Days: Yes e-Cigarette/Vaping Use: Never Used Patient Interested in Nicotine Replacement: Yes Patient Given Instructions on How to Stop Smoking: No Second Hand Smoke Exposure: No Use of substances other than those prescribed or required for medical reasons: No Currently Displaying Signs/Symptoms of Drug Intoxication Withdrawal: No Any prior treatment program specific to substance use: No Have you been hit, kicked, punched, or otherwise hurt by someone within the past year? If so, by whom?: No Do you feel safe in your current relationship?: No Is there a partner from a previous relationship who is making you feel unsafe now?: No Are you made to feel afraid or neglected: No Advance Directives: No Advance Directives Information Provided: No Do you have thoughts of harming others: None Do you have a plan to hurt others: No Plan Recently lost weight without trying: No Eating poorly because of decreased appetite: No Nutrition Risks: No Nutritional Risk Poor oral hygiene: Yes service: No Sexual orientation: Straight/Heterosexual Meds Allergies Allergy/AdvReac Type Severity Reaction Status Date / Time erythromycin base Allergy Unknown UNKNOWN Verified 10/26/23 17:11 [Erythromycin Base] Active Medications: Current Medications Acetaminophen (Acetaminophen 325 Mg Tablet) 650 mg PO Q8H PRN PRN Reason: Headache/Pain Mild Scale (1-3) Last Admin: 11/02/23 21:10 Dose: 650 mg Al Hydroxide/Mg Hydroxide (Magnesium Hydrox/Alum Hydrox 30 Ml Oral.Susp) 30 ml PO Q6H PRN PRN Reason: Heartburn/Nausea Clonazepam (Clonazepam 1 Mg Tablet) 1 mg PO BID MISSY Last Admin: 11/03/23 08:28 Dose: 1 mg Cyclobenzaprine HCl (Cyclobenzaprine Hcl 10 Mg Tablet) 10 mg PO TID PRN PRN Reason: Back discomfort, muscle spasm Last Admin: 11/02/23 18:48 Dose: 10 mg Divalproex Sodium (Divalproex Sodium Er 250 Mg Tab.Er.24h) 750 mg PO BID [facility] Hydroxyzine HCl (Hydroxyzine Hcl 25 Mg Tablet) 25 mg PO Q6H PRN PRN Reason: Anxiety Last Admin: 11/02/23 09:40 Dose: 25 mg Ibuprofen (Ibuprofen 600 Mg Tablet) 600 mg PO Q8H PRN PRN Reason: Pain, Mild (Pain Scale 1-3) Last Admin: 11/03/23 10:20 Dose: 600 mg Lamotrigine (Lamotrigine 100 Mg Tablet) 300 mg PO BID [facility] Last Admin: 11/03/23 08:28 Dose: 300 mg Levetiracetam (Levetiracetam 1,000 Mg Tablet) 2,000 mg PO BID [facility] Last Admin: 11/03/23 08:27 Dose: 2,000 mg Magnesium Hydroxide (Milk Of Magnesia 30 Ml Oral.Susp) 30 ml PO DAILY PRN PRN Reason: Constipation Melatonin (Melatonin 3 Mg Tablet) 6 mg PO BEDTIME PRN PRN Reason: Insomnia Last Admin: 11/01/23 20:31 Dose: 6 mg Nicotine (Nicotine 21 Mg Patch.Td24) 21 mg TRANSDERMA DAILY PRN PRN Reason: nicotine cravings Nicotine Polacrilex (Nicotine Polacrilex 2 Mg Gum) 4 mg BUCCAL Q2H PRN PRN Reason: Nicotine Cravings Olanzapine (Olanzapine 5 Mg Tablet) 5 mg PO BEDTIME [facility] Last Admin: 11/02/23 21:11 Dose: 5 mg Sertraline HCl (Sertraline Hcl 100 Mg Tablet) 100 mg PO DAILY [facility] Last Admin: 11/03/23 08:27 Dose: 100 mg Trazodone HCl (Trazodone Hcl 50 Mg Tablet) 50 mg PO BEDTIME MRX1 PRN PRN Reason: Insomnia Last Admin: 10/30/23 20:50 Dose: 50 mg Home Medications ?Medication ?Instructions ?Recorded ?Confirmed ?Last Taken ?Type ibuprofen 600 mg tablet 600 mg PO TID PRN Pain 07/04/23 10/26/23 10/25/23 History melatonin 5 mg tablet 5 mg PO BEDTIME PRN Insomnia 07/04/23 10/26/23 10/25/23 History levetiracetam 1,000 mg tablet 2,000 mg PO BID 10/26/23 10/26/23 10/26/23 History lamotrigine 150 mg tablet 300 mg PO BID 10/27/23 10/27/23 10/26/23 History Physical Exam 2 Vital Signs and Narrative: Vital Signs: Last Vital Signs Temp 98.2 F 11/03/23 08:00 Pulse 62 11/03/23 08:00 Resp 18 11/03/23 08:00 BP 114/59 L 11/03/23 08:00 Pulse Ox 94 11/03/23 08:00 O2 Del Method Room Air 11/03/23 08:00 BMI result Body Mass Index 31.6 Constitutional - Awake and Alert, No apparent distress Eyes - PERRLA, EOMI Cardiovascular - S1S2, RRR, No edema Respiratory - Normal lung expansion, Normal respiratory effort, No respiratory distress, CTA bilaterally Gastrointestinal - NT / ND; +BS; No rebound or guarding Extremities - no calf tenderness bilaterally, no swelling Skin - Warm/Dry Neurological - Alert & oriented x3, CN II-XII in tact Psychological - Appropriate affect Results Labs 10/26/23 18:32 10/26/23 18:32 Labs: Laboratory Results - last 24 hr 11/03/23 09:53 Valproic Acid 37.0 L Assessment and Plan (1) Intractable epilepsy: Qualifiers: Epilepsy type: generalized idiopathic Status epilepticus: without status epilepticus Qualified Code(s): G40.319 - Generalized idiopathic epilepsy and epileptic syndromes, intractable, without status epilepticus Status: Acute Plan 43-year-old male with history of COPD, history of alcohol dependence reports only occasional alcohol use now, bipolar disorder, PTSD, intractable epilepsy admitted to adult Psychiatry with consult placed hospitalist service for evaluation of seizure activity. #Intractable epilepsy/breakthrough seizure -question of medication noncompliance outside of hospital per psychiatrist. Was restarted on keppra 2000mg bid, depakote 500mg BID, and lamotrigine 300mg daily. Two breakthrough seizures this am around 6am and 830 with post ictal state -no evidence of etoh withdrawal -Valproic acid level sub therapeutic at 37. Agree with increase to 750mg ER BID -Keppra and lamotrigine levels pending. Continue current dose -Recommend EEG and neuro consult -1mg IM ativan prn for breakthrough seizures and advised to call rapid response with low threshold for transfer in event of addl seizure. Continue 1:1 for monitoring and neuro checks -BMP, mag, vitamin b12/folic acid, and tsh w/ reflex free t4 ordered. Ammonia level ordered for baseline given depakote increase -Plan discussed with team and psychiatrist Thank you for allowing me to participate in this consult. Signing off at this time. Please do not hesitate to call for further questions or for any acute medical issues
[2023-11-03 11:59] LABS: Ammonia 72 umol/L (13-55)
[2023-11-03 12:06] LABS: Alanine Aminotransferase 14 U/L (0-40); Albumin Level 3.7 g/dL (3.5-5.0); Alkaline Phosphatase 41 U/L (39-117); Anion Gap 11 (12-20); Aspartate Amino Transferase 16 U/L (5-37); Bilirubin Direct 0.1 mg/dL (0.0-0.5); Bilirubin Total 0.3 mg/dL (0.0-1.0); Blood Urea Nitrogen 32 mg/dL (9-16); Calcium 9.4 mg/dL (8.4-10.2); Carbon Dioxide 30 mmol/L (22-29); Chloride 104 mmol/L (96-108); Creatinine Clr Calc Pharmacy 135.6; Estimated Glomerular Filt Rate > 60; Glucose Random 76 mg/dL (60-115); Magnesium 1.9 mg/dL (1.6-2.6); Sodium 140 mmol/L (135-145); Total Protein 6.5 g/dL (6.5-8.0)
[2023-11-03] MEDS: Acetaminophen 325 MG TABLET 650 MG PO (12:17)
[2023-11-03 12:23] LABS: TSH reflex Free T4 2.62 uIU/mL (0.32-4.0)
[2023-11-03 12:37] LABS: Folate 7.4 ng/mL (> or = 4.0); Vitamin B12 376 pg/mL (200-900)
--- NOTE | 2023-11-03 14:46 | P.CNNE_ITS ---
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 This type of epilepsy is usually either impossible or very difficult to control. In addition, he has struggled with alcohol and sometime with other drugs. Apparently he was admitted for psychiatric reason and was noted to have seizure. I saw him when he was attached to EEG machine. He said that he had not stopped taking his medicines but that could not be independently confirmed. Review of Systems 2 Review of Systems: No recent cold or flu-like illness PMFSH Past Medical History Medical History COPD (chronic obstructive pulmonary disease) Alcohol dependence Bipolar disorder Intractable epilepsy Social History Social History Household Members: Family Household Members Other:: Brothers, Uncle and a woman renting a room named [place] Housing: House Do you presently have visiting nurse or other home services: No Alcohol intake: current Alcohol intake frequency: holidays/special occasions only Alcohol type: beer and hard liquor Patient Tobacco Use Status: Current everyday Tobacco user Tobacco use type: Cigarette Smoked in Last 30 Days: Yes e-Cigarette/Vaping Use: Never Used Patient Interested in Nicotine Replacement: Yes Patient Given Instructions on How to Stop Smoking: No Second Hand Smoke Exposure: No Use of substances other than those prescribed or required for medical reasons: No Currently Displaying Signs/Symptoms of Drug Intoxication Withdrawal: No Any prior treatment program specific to substance use: No Have you been hit, kicked, punched, or otherwise hurt by someone within the past year? If so, by whom?: No Do you feel safe in your current relationship?: No Is there a partner from a previous relationship who is making you feel unsafe now?: No Are you made to feel afraid or neglected: No Advance Directives: No Advance Directives Information Provided: No Do you have thoughts of harming others: None Do you have a plan to hurt others: No Plan Recently lost weight without trying: No Eating poorly because of decreased appetite: No Nutrition Risks: No Nutritional Risk Poor oral hygiene: Yes service: No Sexual orientation: Straight/Heterosexual Meds Allergies Allergy/AdvReac Type Severity Reaction Status Date / Time erythromycin base Allergy Unknown UNKNOWN Verified 10/26/23 17:11 [Erythromycin Base] Active Medications: Current Medications Acetaminophen (Acetaminophen 325 Mg Tablet) 650 mg PO Q8H PRN PRN Reason: Headache/Pain Mild Scale (1-3) Last Admin: 11/03/23 12:17 Dose: 650 mg Al Hydroxide/Mg Hydroxide (Magnesium Hydrox/Alum Hydrox 30 Ml Oral.Susp) 30 ml PO Q6H PRN PRN Reason: Heartburn/Nausea Clonazepam (Clonazepam 1 Mg Tablet) 1 mg PO BID [facility] Last Admin: 11/03/23 08:28 Dose: 1 mg Cyclobenzaprine HCl (Cyclobenzaprine Hcl 10 Mg Tablet) 10 mg PO TID PRN PRN Reason: Back discomfort, muscle spasm Last Admin: 11/02/23 18:48 Dose: 10 mg Divalproex Sodium (Divalproex Sodium Er 250 Mg Tab.Er.24h) 750 mg PO BID [facility] Hydroxyzine HCl (Hydroxyzine Hcl 25 Mg Tablet) 25 mg PO Q6H PRN PRN Reason: Anxiety Last Admin: 11/02/23 09:40 Dose: 25 mg Ibuprofen (Ibuprofen 600 Mg Tablet) 600 mg PO Q8H PRN PRN Reason: Pain, Mild (Pain Scale 1-3) Last Admin: 11/03/23 10:20 Dose: 600 mg Lamotrigine (Lamotrigine 100 Mg Tablet) 300 mg PO BID [facility] Last Admin: 11/03/23 08:28 Dose: 300 mg Levetiracetam (Levetiracetam 1,000 Mg Tablet) 2,000 mg PO BID [facility] Last Admin: 11/03/23 08:27 Dose: 2,000 mg Lorazepam (Lorazepam 2 Mg/Ml Vial) 1 mg IM Q5M PRN PRN Reason: seizure Magnesium Hydroxide (Milk Of Magnesia 30 Ml Oral.Susp) 30 ml PO DAILY PRN PRN Reason: Constipation Melatonin (Melatonin 3 Mg Tablet) 6 mg PO BEDTIME PRN PRN Reason: Insomnia Last Admin: 11/01/23 20:31 Dose: 6 mg Nicotine (Nicotine 21 Mg Patch.Td24) 21 mg TRANSDERMA DAILY PRN PRN Reason: nicotine cravings Nicotine Polacrilex (Nicotine Polacrilex 2 Mg Gum) 4 mg BUCCAL Q2H PRN PRN Reason: Nicotine Cravings Olanzapine (Olanzapine 5 Mg Tablet) 5 mg PO BEDTIME MISSY Last Admin: 11/02/23 21:11 Dose: 5 mg Sertraline HCl (Sertraline Hcl 100 Mg Tablet) 100 mg PO DAILY MISSY Last Admin: 11/03/23 08:27 Dose: 100 mg Trazodone HCl (Trazodone Hcl 50 Mg Tablet) 50 mg PO BEDTIME MRX1 PRN PRN Reason: Insomnia Last Admin: 10/30/23 20:50 Dose: 50 mg Home Medications ?Medication ?Instructions ?Recorded ?Confirmed ?Last Taken ?Type ibuprofen 600 mg tablet 600 mg PO TID PRN Pain 07/04/23 10/26/23 10/25/23 History melatonin 5 mg tablet 5 mg PO BEDTIME PRN Insomnia 07/04/23 10/26/23 10/25/23 History levetiracetam 1,000 mg tablet 2,000 mg PO BID 10/26/23 10/26/23 10/26/23 History lamotrigine 150 mg tablet 300 mg PO BID 10/27/23 10/27/23 10/26/23 History Physical Exam 2 Vital Signs: Vital Signs: Last Vital Signs Temp 98.2 F 11/03/23 08:00 Pulse 62 11/03/23 08:00 Resp 18 11/03/23 08:00 BP 114/59 L 11/03/23 08:00 Pulse Ox 94 11/03/23 08:00 O2 Del Method Room Air 11/03/23 08:00 BMI result Body Mass Index 31.6 Neuro: Other: Alert and awake recognize me in answered questions appropriately. There was no focal weakness except that his left side of the face seems slightly flat. Results Labs 10/26/23 18:32 11/03/23 11:40 Labs: BMP 11/03/23 11:40 Sodium 140 Potassium 5.0 Chloride 104 Carbon Dioxide 30 H BUN 32 H Creatinine 0.84 Calcium 9.4 Liver Function 11/03/23 Range/Units 11:40 Total Bilirubin 0.3 (0.0-1.0) mg/dL Direct Bilirubin 0.1 (0.0-0.5) mg/dL AST 16 (5-37) U/L ALT 14 (0-40) U/L Alkaline Phosphatase 41 (39-117) U/L Albumin 3.7 (3.5-5.0) g/dL Head CT revealed dilated cisterna magnum but otherwise no significant abnormality. EEG revealed frequent bursts of generalize sharp waves while he continued to converse. Assessment and Plan (1) Intractable epilepsy: Qualifiers: Epilepsy type: generalized idiopathic Status epilepticus: without status epilepticus Qualified Code(s): G40.319 - Generalized idiopathic epilepsy and epileptic syndromes, intractable, without status epilepticus Status: Acute 43 years old man with intractable epilepsy comprised of generalized seizures. He probably has primary generalized epilepsy, which sometime is impossible to control. Over the years, we have tried multiple medicines without success. In addition he struggled with alcohol and sometime with drugs. His EEG today continues to show generalize epileptic discharges while he is alert and awake conversing with no confusion. Goal of epilepsy treatment is control of physical seizures as elimination of electrical discharges might be impossible or could create more problems. For now, now was admitted in hospital, my recommendation is to give his medicines on regular basis for few days, about 5, and then check his levels and repeat EEG. Further dizzy in about change in his medicines can be made at that point. Procedures Date of Service Date of Service: 11/03/23
--- NOTE | 2023-11-03 18:36 | P.DS_ITS ---
DS: Providers Provider Date of Service: 11/03/23 Date of admission: 10/28/23 13:18 Date of discharge: 11/03/23 Primary care physician: Matthieu Buenrostro MD Admitting clinician: Zayra Alba Attending physician on admission: Miguel Holden Consults: 11/03/23 10:53 Consult to Neurology Stat Consulting Provider: [facility] Reason for consultation: seizure x 2 this a.m. Has provider been notified: No 11/03/23 10:58 Consult to Hospitalist Routine Comment: Consulting Provider: Hospitalist Reason For Exam: Seizure with fall Attending physician on discharge: Miguel Holden Discharging clinician: Isabel Andrews DS: Diagnosis Discharge Diagnosis (1) Bipolar disorder: Status: Acute (2) PTSD (post-traumatic stress disorder): Status: Acute (3) Alcohol dependence: Status: Acute DS: Medications Discharge Medications Home Medications: Previous Rx's ?Medication ?Instructions ?Recorded acetaminophen 325 mg tablet 650 mg (2 x 325 mg) PO Q8H PRN 11/03/23 Headache/Pain Mild Scale (1-3) #0 tabs aluminum-magnesium hydroxide 200 30 ml PO Q6H PRN Heartburn/Nausea 11/03/23 mg-200 mg/5 mL oral suspension #0 mL (MAG-AL) clonazepam 1 mg tablet 1 mg PO BID #1 tab 11/03/23 divalproex 250 mg tablet,extended 750 mg (3 x 250 mg) PO BID #0 tabs 11/03/23 release 24 hr hydroxyzine HCl 25 mg tablet 25 mg PO Q6H PRN Anxiety #0 tabs 11/03/23 ibuprofen 600 mg tablet 600 mg PO Q8H PRN Pain, Mild (Pain 11/03/23 Scale 1-3) #0 tabs lamotrigine 100 mg tablet 300 mg (3 x 100 mg) PO BID #0 tabs 11/03/23 levetiracetam 1,000 mg tablet 2,000 mg (2 x 1,000 mg) PO BID #0 11/03/23 tabs magnesium hydroxide 400 mg/5 mL 30 ml PO DAILY PRN Constipation #0 11/03/23 oral suspension (Milk of Magnesia) mL melatonin 3 mg tablet 6 mg (2 x 3 mg) PO BEDTIME PRN 11/03/23 Insomnia #0 tabs nicotine (polacrilex) 2 mg gum 4 mg buccal Q2H PRN Nicotine 11/03/23 Cravings #0 ea nicotine 21 mg/24 hr daily 21 mg transdermal DAILY PRN 11/03/23 transdermal patch nicotine cravings #0 ea sertraline 100 mg tablet 100 mg PO DAILY #0 tabs 11/03/23 trazodone 50 mg tablet 50 mg PO BEDTIME MRX1 PRN Insomnia 11/03/23 #0 tabs Mental Status Exam Mental Status Exam Patient Appearance: Fatigued Patient Orientation: Person and Place Level of Consciousness: Awake Patient Behavior: Cooperative Mood Description: Apprehensive Affect Description: Apprehensive Patient Cognition Impaired: Yes Ability to Follow Directions: Fair Speech Pattern: Spontaneous Speech Memory Description: Remote Impaired Thought Process: Distracted Judgement: Poor Data Data Completed and Pending Completed studies during hospitalization [Text1]: 10/26/23 10/29/23 11/03/23 18:32 08:32 09:53 Sodium Potassium Chloride Carbon Dioxide Anion Gap BUN Creatinine Estim Creat Clear Calc Estimated GFR Random Glucose Estimat Average Glucose 94 Hemoglobin A1c % 4.9 Calcium Magnesium 2.1 Total Bilirubin Direct Bilirubin AST ALT Alkaline Phosphatase Ammonia Total Protein Albumin Triglycerides 41 Cholesterol 196 LDL Cholesterol, Calc 120 H HDL Cholesterol 68 Vitamin B12 507 Folate 8.4 TSH 2.05 Free T4 0.93 Prolactin Pending Valproic Acid 37.0 L Lamotrigine Pending Levetiracetam 25.7 Pending 11/03/23 11:40 Sodium 140 Potassium 5.0 Chloride 104 Carbon Dioxide 30 H Anion Gap 11 L BUN 32 H Creatinine 0.84 Estim Creat Clear Calc 135.6 Estimated GFR > 60 Random Glucose 76 Estimat Average Glucose Hemoglobin A1c % Calcium 9.4 Magnesium 1.9 Total Bilirubin 0.3 Direct Bilirubin 0.1 AST 16 ALT 14 Alkaline Phosphatase 41 Ammonia 72 H Total Protein 6.5 Albumin 3.7 Triglycerides Cholesterol LDL Cholesterol, Calc HDL Cholesterol Vitamin B12 376 Folate 7.4 TSH 2.62 Free T4 Prolactin Valproic Acid Lamotrigine Levetiracetam Imaging Diagnostic Imaging Impressions Head CT 10/27/23 19:40 IMPRESSION: No acute intracranial pathology. Electronically signed by: Missy Laws MD 10/27/2023 09:[address] 11/03/23 08:37 IMPRESSION: 1. No evidence of acute intracranial hemorrhage or edematous territorial infarction. 2. Moderate prominence of the CSF space posterior to the cerebellum. There appears to be mild diffuse volume loss of the cerebellum. 3. No additional demonstrated abnormal mass effect on the noncontrast evaluation. Electronically signed by: Everardo Hdez DO 11/03/2023 02:27 PM EDT RP DS: Summary Hospital Course Hospital Course: Admission to adult psychiatry for exacerbation of PTSD, Bipolar Disorder with Psychosis, Alcohol Use Disorder, Epilepsy. Pt presented to [facility] with SI/HI/AH with plans to shoot himself and kill his brother. He was sent to [facility] where he sustained a fall in the bathroom- CT was negative, diagnostics negative as well. Pt reports prior to admission, no substance use or alcohol use since 10/07/23 (alcohol, cocaine, nicotine), toxicology was negative and prescribed medication compliance. Pt signed a CV when admitted, medications were evaluated and adjusted. Olanzapine 5 mg was used for 2 doses without adverse effects, flexeril prn was trialed for back spasm and was stopped as pt reported it made him feel high . Pt participated in milieu. On 11/02 he exhibited two episodes of seizure activity early a.m. CAT showed mild diffuse volume loss in the cerebullum, EEG and neurology consult indicated epileptic discharges R Hemisphere seen in secondary generalized epilepsy. Recommendations were to continue med regime for five days and re-assess with EEG and blood levels after that time. Depakote was increased to 750 mg bid as level dropped from 43.7 to 37 since admit. Ammonia 72. Pt was placed on one to one, and began to have petit mal activity, weakness, vertigo, and falls in the late afternoon, precipitating a rapid response and transfer to medicine. Please consider pt to return to psychiatry when medically stabilized for continued work on mood and psychotic sx mgt. Status at Discharge Functional status at discharge: bed bound Overall status at discharge: patient is not back to baseline Time Spent with Patient Time attestation: Total time managing care of this patient today ____ minutes. Time spent: Less than 30 minutes Discharge Plan Discharge Anticipated Discharge Date/Time: 11/03/23 18:30 Patient Disposition: Xfer Acute Care Hospital Discharge Diagnosis: PTSD Epilepsy Bipolar Disorder Alcohol Use Disorder Referrals: Name,MD Matthieu [Primary Care Provider] - 1 Week Discharge Medications: New acetaminophen 325 mg Tablet 650 mg PO Q8H PRN (Reason: Headache/Pain Mild Scale (1-3)) Qty: 0 0RF trazodone 50 mg Tablet 50 mg PO BEDTIME MRX1 PRN (Reason: Insomnia) Qty: 0 0RF nicotine (polacrilex) 2 mg Gum 4 mg buccal Q2H PRN (Reason: Nicotine Cravings) Qty: 0 0RF sertraline 100 mg Tablet 100 mg PO DAILY Qty: 0 0RF clonazepam 1 mg Tablet 1 mg PO BID Qty: 1 0RF melatonin 3 mg Tablet 6 mg PO BEDTIME PRN (Reason: Insomnia) Qty: 0 0RF magnesium hydroxide [Milk of Magnesia] 400 mg/5 mL Suspension 30 ml PO DAILY PRN (Reason: Constipation) Qty: 0 0RF nicotine 21 mg/24 hr Patch 24 Hour 21 mg transdermal DAILY PRN (Reason: nicotine cravings) Qty: 0 0RF hydroxyzine HCl 25 mg Tablet 25 mg PO Q6H PRN (Reason: Anxiety) Qty: 0 0RF ibuprofen 600 mg Tablet 600 mg PO Q8H PRN (Reason: Pain, Mild (Pain Scale 1-3)) Qty: 0 0RF lamotrigine 100 mg Tablet 300 mg PO BID Qty: 0 0RF divalproex 250 mg Tablet Extended Release 24 Hr 750 mg PO BID Qty: 0 0RF MAG-AL 200-200 mg/5 mL Suspension 30 ml PO Q6H PRN (Reason: Heartburn/Nausea) Qty: 0 0RF levetiracetam 1,000 mg Tablet 2,000 mg PO BID Qty: 0 0RF Discontinued ibuprofen 600 mg Tablet 600 mg PO TID PRN (Reason: Pain) melatonin 5 mg Tablet 5 mg PO BEDTIME PRN (Reason: Insomnia) nicotine (polacrilex) 2 mg Gum 4 mg buccal Q2H PRN (Reason: Nicotine Cravings) Qty: 60 0RF clonazepam 1 mg Tablet 1 mg PO BID Qty: 14 4RF nicotine 21 mg/24 hr Patch 24 Hour 21 mg transdermal DAILY PRN (Reason: smoking cessation) Qty: 30 0RF sertraline 25 mg Tablet 75 mg PO DAILY Qty: 90 0RF divalproex [Depakote ER] 250 mg tablet extended release 24 hr 250 mg PO BID Qty: 60 0RF levetiracetam 1,000 mg tablet 2,000 mg PO BID lamotrigine 150 mg tablet 300 mg PO BID Discharge Orders: Discharge Order (Routine); Ordered 11/03/23 Ordered By: Isabel Andrews Diet: Advance to usual diet Activity on Discharge: As tolerated Stand Alone Forms: Patient Portal Discharge page Print Language: Maori Care Plan Goals: Medical Stabilization Health Concerns: Seizure activity Plan of Treatment: Discharge from [facility] Admission to medicine due to uncontrolled seizure activity Assessment: Discharge/Re-admit to medicine due to uncontrolled seizure activity Discharge Date/Time: 11/03/23 18:41
--- NOTE | 2023-11-03 18:38 | PC.NURSE ---
At apporoximately 1730 Valerio was witnessed and self reported having multiple petit mal seizures. Valerio had 2 witnessed grand mal this morning. Provider and movement education specialist notified. Pt condition deteriorated in process of waiting for a response from movement education specialist provider and a rapid response was called at 18:10. Once rapid team responded pt had a grand mal seizure. 1 mg ativan IM administered. Pt discharged and transferred to medical.
[2023-11-04 16:04] LABS: Prolactin 15.2 ng/mL (2.0-18.0)
[2023-11-07 10:04] LABS: Lamotrigine Lamictal 14.3 mcg/mL (2.5-15.0)
== END 2023-11-03 18:41 | disposition short-term general hospital (02) | DRG 753 ==
LOC: HO.ED 20:11 → HO.PM5 10-28 13:31
PROVIDERS: Physician Assistant; Admitting Provider Clinical Nurse Specialist Psychiatric/Mental Health, Adult; Emergency Provider Emergency Medicine; PCP Internal Medicine Geriatric Medicine; Visit Provider Clinical Nurse Specialist Psychiatric/Mental Health, Adult
DX: F31.9 Bipolar disorder, unspecified (principal); G40.319 Generalized idiopathic epilepsy and epileptic syndromes, intractable, without status epilepticus; R45.851 Suicidal ideations; R45.850 Homicidal ideations; J44.9 Chronic obstructive pulmonary disease, unspecified; F43.10 Post-traumatic stress disorder, unspecified; F10.20 Alcohol dependence, uncomplicated; F17.210 Nicotine dependence, cigarettes, uncomplicated; Z71.6 Tobacco abuse counseling; Z79.899 Other long term (current) drug therapy
CPT/HCPCS: 36415; 70450; 80048; 80053; 80061; 80076; 80164; 80175; 80177; 80307; 81003; 82140; 82607; 82746; 83036; 83735; 84146; 84439; 84443; 85025; 95816; 99285; J2060; S9485

== ENCOUNTER → 2023-10-28 13:18 | Outpatient (BNV) | payer MEDICAID, SELFPAY | PROVIDERS: Admitting Provider Clinical Nurse Specialist Psychiatric/Mental Health, Adult; Emergency Provider Emergency Medicine; PCP Internal Medicine Geriatric Medicine; Visit Provider Physician Assistant | DX: G40.319 Generalized idiopathic epilepsy and epileptic syndromes, intractable, without status epilepticus (principal) | CPT/HCPCS: 99499 ==

== ENCOUNTER → 2023-10-28 13:18 | Outpatient (BNV) | payer OTHER, SELFPAY | PROVIDERS: Admitting Provider Clinical Nurse Specialist Psychiatric/Mental Health, Adult; Emergency Provider Emergency Medicine; PCP Internal Medicine Geriatric Medicine; Visit Provider Registered Nurse | DX: F31.2 Bipolar disorder, current episode manic severe with psychotic features (principal); F10.20 Alcohol dependence, uncomplicated; F43.11 Post-traumatic stress disorder, acute | CPT/HCPCS: 99231; 99232; 99233 ==

== ENCOUNTER → 2023-10-28 13:18 | Outpatient (BNV) | payer MEDICAID, SELFPAY | PROVIDERS: Admitting Provider Clinical Nurse Specialist Psychiatric/Mental Health, Adult; Emergency Provider Emergency Medicine; PCP Internal Medicine Geriatric Medicine; Visit Provider Psychiatry & Neurology Neurology | DX: G40.419 Other generalized epilepsy and epileptic syndromes, intractable, without status epilepticus (principal) | CPT/HCPCS: 99222 ==

== ENCOUNTER 2023-11-03 18:59 | Inpatient (IN) | payer MEDICAID, SELFPAY ==
--- NOTE | ~2023-11-03 | MR_ITS ---
EXAMINATION: MR BRAIN WITHOUT CONTRAST CLINICAL INFORMATION: Seizure. COMPARISON: CT head from 10/26/2023. TECHNIQUE: MRI of the brain was obtained using routine sequences without contrast. FINDINGS: No focal restricted diffusion is demonstrated to suggest acute or subacute cerebral ischemia. No evidence of acute or chronic hemorrhagic products on heme-sensitive imaging. Few nonspecific scattered periventricular and deep white matter T2 FLAIR hyperintensities in the bilateral frontal lobes. No additional parenchymal signal abnormalities. Moderate prominence of the CSF space posterior to the cerebellum. Mild diffuse volume loss of the cerebellum. Otherwise, the ventricles are normal in morphology and size. No abnormal mass effect. No midline shift. The hippocampi are symmetric in size, contour, and signal intensity. The temporal horns appear symmetric. Normal appearance of the pituitary gland. Normal arterial and venous vascular flow voids are present. Normal, homogeneous marrow signal. Moderate mucosal thickening of the left ethmoid air cells. Mild mucosal thickening of the remaining paranasal sinuses. No signal abnormalities within the mastoids. MR/MR head/brain wo con IMPRESSION: 1. No acute intracranial abnormalities. 2. Mild nonspecific white matter changes. 3. Mild diffuse volume loss of the cerebellum. Moderate prominence of the CSF space posterior to the cerebellum. No evidence of obstructive hydrocephalus. Electronically signed by: Everardo Hdez DO 11/04/2023 03:53 PM EDT
--- NOTE | ~2023-11-03 | XR_ITS ---
EXAMINATION: XR PELVIS CLINICAL INFORMATION: Multiple COMPARISON: None available. TECHNIQUE: AP view of the pelvis. FINDINGS: No fracture. Hip joint spaces are maintained. Alignment is anatomic. Sacroiliac joints and pubic symphysis are normal. No abnormal soft tissue calcifications. XR/XR pelvis 1-2V IMPRESSION: Normal pelvis. Electronically signed by: Missy Laws MD 11/08/2023 07:38 AM EDT
--- NOTE | ~2023-11-03 | CT_ITS ---
EXAMINATION: CT HEAD WITHOUT CONTRAST CLINICAL INFORMATION: Fall. COMPARISON: Brain MRI from 11/04/2023 TECHNIQUE: Contiguous axial imaging was performed from the skull base to vertex without intravenous administration of contrast. This CT examination was performed using dose optimization techniques as appropriate, variously including the following: *Automated exposure control. *Adjustment of mA and/or kV according to patient size (this includes techniques or standardized protocols for targeted exams where dose is matched to indication/reason for exam; i.e. extremities or head). *Use of iterative reconstruction technique. DLP: 1108 mGy-cm FINDINGS: Significantly motion degraded exam. Within the limitations of this exam, there is no demonstrated evidence of acute intracranial hemorrhage or edematous territorial infarction. Luke-white matter differentiation is preserved. There is no abnormal attenuation within the brain parenchyma. The ventricles are normal in morphology and size. No evidence for obstructive hydrocephalus. Moderate prominence of the CSF space posterior to cerebellum. There appears to be mild diffuse volume loss of the cerebellum. No additional abnormal mass effect or midline shift. No extra-axial fluid collections. No acute soft tissue or osseous abnormalities. Moderate mucosal thickening of the left ethmoid air cells. Mild mucosal thickening of the remaining paranasal sinuses. The mastoid air cells and middle ear cavities are clear. CT/CT head/brain wo IV con IMPRESSION: 1. Significantly motion degraded exam. Within this limitation, there is no evidence of acute intracranial hemorrhage or edematous territorial infarction. 2. Moderate prominence of the CSF space posterior to the cerebellum. There appears to be mild diffuse volume loss of the cerebellum. Electronically signed by: Everardo Hdez DO 11/07/2023 09:11 PM EDT
--- OUTSIDE RECORDS SUMMARY | 2023-11-03 19:01 | XMS_ITS | Continuity of Care Document ---
Author Organization [facility] Address [address] [place] [id number] Care Team Providers Care Air Director Name Role Phone Name Matthieu AVILA Primary Care Physician [place] [facility] [place]): 08/27/23 - 08/29/[address] [id number] Encounter Diagnosis Seizure(Final) - 08/27/23 Seizure(Final) - 08/28/23 Discharge Disposition: A-D/C Home Attending Physician: Tomasa Cee MD Admitting Physician: Shaan Ahn MD Referring Physician: Not on Staff, Referring MD Allergies, Adverse Reactions, Alerts Substance Reaction Severity Status erythromycin rash Active Medications clonazePAM 0.5 mg oral tablet 1 tablet = 0.5 mg, By Mouth, Daily in AM, # 30 tablet, 0 Refills, Maintenance, 04/24/21 9:30:00 EST, Tablet, [id number], Partial fill upon patient request if the prescription is for a schedule II opioid drug., 101.81, cm, 04/24/21 8:52:00 EST,... Start Date: 04/24/21 Status: Ordered clonazePAM 1 mg oral tablet 1 tablet = 1 mg, By Mouth, Daily at bedtime, While in hosp, # 30 tablet, 0 Refills, Maintenance, 04/24/21 9:31:00 EST, Tablet, [id number], Partial fill upon patient request if the prescription is for a schedule II opioid drug., 101.81, cm, ... Start Date: 04/24/21 Status: Ordered Combivent Respimat 20 mcg-100 mcg/inh inhalation aerosol 1 puffs, Inhalation, 4 times a day, # 4 Gm, 0 Refills, Maintenance, 12/28/20 9:07:00 EDT, Aerosol, Partial fill upon patient request if the prescription is for a schedule II opioid drug. Start Date: 12/28/20 Status: Ordered divalproex sodium 500 mg oral tablet, extended release = 500 mg, By Mouth, 2 times a day, 0 Refills, Maintenance, 08/29/23 15:55:00 EDT, ER Tablet, Partial fill upon patient request if the prescription is for a schedule II opioid drug. Start Date: 08/29/23 Status: Ordered folic acid 1 mg oral tablet 1 mg, 1, tablet, By Mouth, Daily, # 30 tablet, Refills 0, Tot. Refills 0, Maintenance, 03/31/21 12:38:00 EST, Route to Pharmacy Electronically, [facility], Partial fill upon patient request if the prescription is for a schedule II opioid... Start Date: 03/31/21 Status: Ordered lamotrigine 150 mg oral tablet 2 tablets, By Mouth, 2 times a day, Maintenance, 01/29/21 15:28:00 EST, Tablet, Partial fill upon patient request if the prescription is for a schedule II opioid drug. Start Date: 01/29/21 Status: Ordered levETIRAcetam 1000 mg oral tablet 2 tablet = 2,000 mg, By Mouth, 2 times a day, Maintenance, 01/29/21 15:28:00 EST, Tablet, Partial fill upon patient request if the prescription is for a schedule II opioid drug. Start Date: 01/29/21 Status: Ordered melatonin 5 mg oral tablet 1 tablet = 5 mg, By Mouth, Daily at bedtime, 0 Refills, Maintenance, 12/01/21 17:32:00 EDT, Partialfill upon patient request if the prescription is for a schedule II opioid drug. Start Date: 12/01/21 Status: Ordered MiraLax oral powder for reconstitution = 17 Gm, By Mouth, Daily, 0 Refills, Maintenance, 12/01/21 17:34:00 EDT, Partial fill upon patient request if the prescription is for a schedule II opioid drug. Start Date: 12/01/21 Status: Ordered Motrin Tablet 600 mg, By Mouth, 3 times a day with meals, Refills 0, Maintenance, 12/01/21 17:34:00 EDT, Partial fill upon patient request if the prescription is for a schedule II opioid drug. Start Date: 12/01/21 Status: Ordered sertraline 50 mg oral tablet 1 tablet = 50 mg, By Mouth, Daily, # 30 tablet, 0 Refills, Maintenance, 09/11/21 13:41:00 EDT, Tablet, Partial fill upon patient request if the prescription is for a schedule II opioid drug. Start Date: 09/11/21 Status: Ordered Vitamin B1 100 mg oral tablet 100 mg, 1, tablet, By Mouth, Daily Start Date: 07/29/21 Status: Ordered Problem List Condition Confirmation Course Effective Dates Status H ealth Status Informant COPD without exacerbation Confirmed Active COVID Confirmed Active Obese class I Confirmed Active Obesity Confirmed Active Polysubstance abuse Confirmed Active Results Radiology Reports * Exam Date Time Procedure Performing Provider Status 08/27/23 6:13 PM Chest Portable Precious Puri; Dayana (Ve rified) Notes: (Chest Portable) Reason For Exam: Shortness of Breath RESULT: Chest Portable Chest Portable INDICATION: Reason: Shortness of Breath; Clinical Question(s): Pneumonia COMPARISON: 04/23/2023 FINDINGS: LINES AND TUBES: None. LUNGS AND PLEURA: The lungs are clear and the pulmonary vascularity is normal. No effusion or pneumothorax. HEART, MEDIASTINUM AND VELMA: Normal. BONES AND SOFT TISSUES: No acute abnormality. IMPRESSION: No acute abnormality. WSN: [id number] Ordering Physician: Ambika Fink Dictated By: Ashley Mendes MD Dictated Date/Time: 08/27/23 6:38 pm Reviewed By: Ashley Mendes MD Signed By: Ashley Mendes MD Signed Date/Time: 08/27/23 6:38 pm Transcribed By: JOJO Transcribed Date/Time: 08/27/23 6:38 pm Vital Signs Most recent to oldest [Reference Range]: 1 2 3 Height 183 cm (08/28/23 3:57 PM) 183 cm (08/28/23 12:59 PM) 183 cm (08/28/23 12:24 PM) Weight 101.1 kg (08/28/23 12:59 PM) 101.1 kg (08/28/23 12:24 PM) 107.7 kg (08/28/23 7:53 AM) Oxygen Saturation [94-100 %] 95 % (08/29/23 3:00 PM) 98 % (08/29/23 11:00 AM) 98 % (08/29/23 7:00 AM) Pulse Rate [55-90 bpm] 52 bpm *L* (08/29/23 3:00 PM) 51 bpm *L* (08/29/23 11:00 AM) 52 bpm *L* (08/29/23 7:00 AM) Body Mass Index [18.5-24.99 kg/m2] 30.19 kg/m2 *>HHI* (08/28/23 12:59 PM) 30.19 kg/m2 *>HHI* (08/28/23 12:24 PM) 32.16 kg/m2 *>HHI* (08/28/23 7:53 AM) Blood Pressure [90-138/55-84 mm Hg] 113/80mm Hg (08/29/23 3:00 PM) 108/57mm Hg (08/29/23 11:00 AM) 120/64mm Hg (08/29/23 7:00 AM) Respiratory Rate [16-30 br/min] 18 br/min (08/29/23 3:00 PM) 16 br/min (08/29/23 11:00 AM) 18 br/min (08/29/23 7:00 AM) Temperature [96.8-100.4 DegF] 97.9 DegF (08/29/23 3:00 PM) 98.4 DegF (08/29/23 11:00 AM) 97.8 DegF (08/29/23 7:00 AM) Mode of Delivery (Oxygen) Room air (08/29/23 3:00 PM) Room air (08/29/23 11:00 AM) Room air (08/29/23 7:00 AM) Blood pressure sites Arm, right (08/29/23 3:00 PM) Arm, right (08/29/23 11:00 AM) Arm, right (08/29/23 7:00 AM) Temperature Route Axillary (08/29/23 3:00 PM) Oral (08/29/23 11:00 AM) Oral (08/29/23 7:00 AM) Dry Weight 101.1 kg (08/28/23 12:59 PM) 107.7 kg (08/28/23 7:53 AM) Weight Obtained Via Bed scale (08/28/23 12:24 PM) Patient/family stated (08/28/23 7:53 AM) Social History Social History Type Response Smoking Status 5-9 cigarettes (betw een 1/4 to 1/2 pack)/day in last 30 days; Interested in cessation: No entered on: 08/17/22 Sex Admission evaluation note * Gustavo AVILA, Leonardo Brar: PERFORM, MODIFY Event Display: Admission Note Authored Date: [id number] Patient: ??RAND WILKERSON ? Age:??43 Years?Sex:??Male?:??1980?? Chief Complaint/Reason for Consultation Breakthrough seizure. History of Present Illness 43-year-old male patient with a medical history significant for??seizure disorder??and??chronic obstructive pulmonary disease who was brought to the emergency department for evaluation??breakthrough seizures. ?? History is limited as patient is not able to remember events that lead to him being in hospital. ??Reportedly ambulance were called??because the patient was having??abnormal shaking/tremor??for the past 4 days. ??When the EMS arrived??patient??developed??1 minute long??tonic-clonic seizure??which resolved spontaneously. ?? In the emergency department: -??He was afebrile, and hemodynamically stable, on room air with good oxygen saturation.?? - His lab including complete blood cell count, basic metabolic panel, and liver biochemical profilewere largely unremarkable.?? - Lactic acid was 2.8 - Chest x-ray showed no acute abnormalities. ?? While in the ED he had an additional tonic-clonic seizure lasting approximately 2 minutes. He was Keppra loaded with 2 g and given 2 mg of Ativan. ?? He was also started on CIWA protocol due to concern for alcohol withdrawal however he reports consuming alcohol 1-2 tomes per week. Last time 2 days ago. Review of Systems Constitutional:?No weight loss, fever, chills, weakness or fatigue. Cardiovascular:??No chest pain,pressure or discomfort. No palpitations or pedal edema. Respiratory:??No shortness of breath, cough or sputum production. Gastrointestinal:?No anorexia, nausea, vomiting or diarrhea. No abdominal pain or blood in stool. Genitourinary: No burning micturition. No urinary frequency or incontinence. Neurologic: No headache, dizziness, syncope, unilateral weakness, ataxia, numbness or tingling in the extremities. No change in bowel or bladder control. Musculoskeletal: back pain Hematologic: No bleeding or bruising. Lymphatics: No enlarged lymph nodes. Psychiatric: No depression or anxiety. Endocrine: No reports of sweating. No cold or heat intolerance. No polyuria or polydipsia. All other systems were reviewed and are negative.?? Objective Vital Signs?? Temperature: 98 DegF (08/27/23 18:23:00) Temperature Route: Oral (08/27/23 18:56:00) Pulse Rate: 70 bpm (08/27/23 19:30:00) Respiratory Rate: 17 br/min (08/27/23 19:30:00) Systolic Blood Pressure: 112 mm Hg (08/27/23 19:30:00) Diastolic Blood Pressure: 55 mm Hg (08/27/23 19:30:00) Pulse Pressure: 57 mm Hg (08/27/23 19:30:00) Oxygen Saturation: 99 % (08/27/23 19:30:00) Mode of Delivery (Oxygen): Room air (08/27/23 19:30:00) Early Warning Score: 3 (08/27/23 20:34:38) ? Physical Exam Constitutional: Alert, in no acute distress. Head: Normocephalic. Eyes: Pupils are equal, round and reactive to light. Extraocular muscles intact. No pallor or scleral icterus Ear, Nose and Throat: mucous membranes moist. Ears and nose - no obvious deformities. Neck: No JVD or bruits. Respiratory:??Clear to auscultation. No wheezing or rhonchi.??No use of accessory muscles. Cardiovascular:??S1 S2 regular. No murmurs, rubs or gallops. Gastrointestinal:??Abdomen soft, non-tender, non-distended. Extremities: No lower extremity pitting edema. No cyanosis or clubbing. Neurologic:??AAOx3, Cranial nerves II-XII grossly intact. Speech normal, no facial droop. No focal neurological deficits. Moves all extremities spontaneously. Musculoskeletal:??No gross deformities on inspection. Psychiatric: Normal mood and affect. Assessment/Plan 43-year-old male patient with a medical history significant for seizure disorder and chronic obstructive pulmonary disease who was brought to the emergency department for evaluation breakthrough seizures. ?? Diagnoses 1. ??Seizure ??(R56.9) 2. ??Alcohol withdrawal ??(F10.939) ?? Seizure (R56.9):?? Patient with history of seizure disorder on??multiple??antiepileptic??medication??who is presentingwith??breakthrough seizures. Vitals and basic labs are non-remarkable.?? - continue home antiepileptic medications (Depakote, clonazepam, Keppra, lamotrigine) - check anti-epileptic levels.?? - neurology consult.? Alcohol withdrawal (F10.939):??possible - he reported consuming alcohol 1-2 times weekly however itseems he mentioned different amounts to other provider.?? - CIWA protocol with Ativan.?? - continue multivitamin.? VTE Prophylaxis:??Heparin s/c Code Status:?Full code ? Histories Allergies Allergies ?(Active and Proposed Allergies Only) erythromycin? (Severity: Unknown severity, Onset: Unknown) ?Reactions: rash ? Past Medical History/Problem List Active Problems(5) COPD without exacerbation COVID Obese class I Obesity Polysubstance abuse ? Past Surgical History No surgery history documented. ? Social History Alcohol Details:??Use: Current. ??Frequency: 1-2 times per week. ??Type: Beer. Details:??Use: Current. ??Frequency: Daily. ??Type: Beer, Liquor. ??Other: Up to a 12 pack of beer and multiple shots a day, drinks daily but amount varies. Exercise Details:??Self assessment: Good condition. Home/Environment Details:??Living situation: Home/Independent. ??Lives with: Mother. Nutrition/Health Details:??Diet: Regular. Substance Abuse Details:??Use: Past. ??Type: Cocaine, Heroin, Marijuana. Tobacco Details:??Use: 5-9 cigarettes (between 1/4 to 1/2 pack)/day in last 30 days. ??Interested in cessation: No. ? Family History No Family History documented. ? Medications Home Medications Albuterol/Ipratropium (Combivent Respimat 20 mcg-100 mcg/inh inhalation aerosol)?1?puff(s)?Inhalation?4 times a day Clonazepam (clonazePAM 0.5 mg oral tablet)?1?tab(s)?0.5?Milligram?By Mouth?Daily in AM Clonazepam (clonazePAM 1 mg oral tablet)?1?tab(s)?1?Milligram?By Mouth?Daily at bedtime?While in hosp Divalproex Sodium (divalproex sodium 500 mg oral tablet, extended release)?2?tab(s)?1,000?Milligram?By Mouth?Daily Folic Acid (folic acid 1 mg oral tablet)?1?Milligram?1?tablet?By Mouth?Daily Ibuprofen (Motrin Tablet)?600?Milligram?By Mouth?3 times a day with meals Lamotrigine (lamotrigine 150 mg oral tablet)?2 tablets?By Mouth?2 times a day levETIRAcetam (levETIRAcetam 1000 mg oral tablet)?2?tab(s)?2,000?Milligram?By Mouth?2 times a day Melatonin (melatonin 5 mg oral tablet)?1?tab(s)?5?Milligram?By Mouth?Daily at bedtime Polyethylene Glycol 3350 (MiraLax oral powder for reconstitution)?17?gram?By Mouth?Daily Sertraline (sertraline 50 mg oral tablet)?1?tab(s)?50?Milligram?By Mouth?Daily Thiamine (Vitamin B1 100 mg oral tablet)?100?Milligram?1?tablet?By Mouth?Daily ? Results Recent Labs BLOOD COUNT & DIFF WBC 6.1 k/mm3 ()?? 08/27/2023 16:53 RBC 4.16 m/mm3 (Low)?? 08/27/2023 16:53 Hgb 13.1 Gm/dL (Low)?? 08/27/2023 16:53 Hct 39.1 % (Low)?? 08/27/2023 16:53 MCV 94.0 femtoliters ()?? 08/27/2023 16:53 MCH 31.5 pg ()?? 08/27/2023 16:53 MCHC 33.5 g/dL ()?? 08/27/2023 16:53 Platelet Count 148 k/mm3 (Low)?? 08/27/2023 16:53 RDW-SD 47.5 femtoliters (High)?? 08/27/2023 16:53 MPV 11.3 femtoliters ()?? 08/27/2023 16:53 Nucleated RBC (Automated) 0.0 #/100 WBC'S ()?? 08/27/2023 16:53 Abs. NRBC 0.0 k/mm3 ()?? 08/27/2023 16:53 Abs. Neut 4.1 k/mm3 ()?? 08/27/2023 16:53 Abs. Lymph 1.5 k/mm3 ()?? 08/27/2023 16:53 Abs. [place] 0.4 k/mm3 ()?? 08/27/2023 16:53 Abs. Eo 0.1 k/mm3 ()?? 08/27/2023 16:53 Abs. Baso 0.1 k/mm3 ()?? 08/27/2023 16:53 Neut % 66.2 % ()?? 08/27/2023 16:53 Lymph % 24.3 % ()?? 08/27/2023 16:53 [place] % 6.9 % ()?? 08/27/2023 16:53 Eos % 1.5 % ()?? 08/27/2023 16:53 Baso % 0.8 % ()?? 08/27/2023 16:53 Imm Gran 0.3 % ()?? 08/27/2023 16:53 Abs. Imm Gran 0.0 k/mm3 ()?? 08/27/2023 16:53 ?? CHEM GENERAL Sodium 142 mmol/L ()?? 08/27/2023 14:39 Potassium 4.5 mmol/L ()?? 08/27/2023 14:39 Chloride 105 mmol/L ()?? 08/27/2023 14:39 Bicarbonate Level 17 mmol/L (Low)?? 08/27/2023 14:39 Anion Gap 20 (High)?? 08/27/2023 14:39 Glucose Level 74 mg/dL ()?? 08/27/2023 14:39 BUN 21 mg/dL (High)?? 08/27/2023 14:39 Creatinine-Blood 0.87 mg/dL ()?? 08/27/2023 14:39 Estimated GFR Creatinine 110 ML/MIN/1.73 M2 ()?? 08/27/2023 14:39 Calcium 9.1 mg/dL ()?? 08/27/2023 14:39 Calcium, Ionized pH Corrected 1.20 mmol/L ()?? 08/27/2023 14:39 Magnesium 1.9 mg/dL ()?? 08/27/2023 14:39 Protein, Total 6.9 Gm/dL ()?? 08/27/2023 14:39 Albumin 4.3 Gm/dL ()?? 08/27/2023 14:39 AG Ratio 1.7 ()?? 08/27/2023 14:39 Alkaline Phosphatase 53 units/L ()?? 08/27/2023 14:39 AST (SGOT) 15 units/L ()?? 08/27/2023 14:39 ALT (SGPT) 12 units/L ()?? 08/27/2023 14:39 Bilirubin, Total 0.2 mg/dL ()?? 08/27/2023 14:39 Lactate 2.8 mmol/L (High)?? 08/27/2023 19:21 ?? TOXICOLOGY/TDM Ethanol, Serum or Plasma NONE DETECTED mg/dL ()?? 08/27/2023 14:39 Valproic Level 20.8 mg/L (Low)?? 08/27/2023 14:39 Levetiracetam Level 38.90 mg/L ()?? 08/27/2023 14:39 ?? VIROLOGY COVID-19 by RT-PCR NEGATIVE ()?? 08/27/2023 14:41 ? EKG study * Event Display: ECG 12-Lead Authored Date: Please click on pdf link to open report * Event Display: ECG 12-Lead Authored Date: Ventricular Rate: 52 BPM Atrial Rate: 52 BPM P-R Interval: 216 ms QRS Duration: 106 ms Q-T Interval: 406 ms QTC Calculation(Bazett): 377 ms P Fifield: 36 degrees R Fifield: 13 degrees T Fifield: 22 degrees Sinus bradycardia with 1st degree A-V block Otherwise normal ECG When compared with ECG of 23-APR-2023 09:21, No significant change was found Confirmed by GUANAKITO AVILA, [facility] ([id number]) on 08/28/2023 6:59:39 AM [place]: GUANAKITO AVILA,[facility] Progress note * Nargis Jones: PERFORM Event Display: [facility] Authored Date: Patient: ??ROCK RAND ? Age:??43 Years?Sex:??Male?:??1980?? Subjective Patient seen at bedside, doing well. ??Denies new or concerning symptoms. Review of Systems Full review of systems conducted negative except that mentioned in the HPI. Objective ?? Physical Exam Constitutional: Alert, in no distress. Mental Status: Oriented to person, place and time. Head: Normocephalic.?? Neck: Supple, Full range of motion. Respiratory: Clear to auscultation. No wheezing, rales or rhonchi. Cardiovascular: S1 S2 regular. No murmurs, rubs or gallops. Gastrointestinal: Abdomen soft, non-tender, non-distended. Normal bowel sounds.? Neurologic: No focal neurological deficits. Flexor plantar response. Moves all extremities spontaneously. Sensation intact bilaterally. Skin: No rashes or lesions. No petechiae or purpura.?? Musculoskeletal: No cyanosis or clubbing. No gross deformities. Normal range of motion. Heme/Lymphatics/Immun: Palpation of neck reveals no swelling or tenderness of neck nodes.?? Psychiatric: Normal mood and affect Assessment/Plan 43-year-old male patient with a medical history significant for seizure disorder and chronic obstructive pulmonary disease who was brought to the emergency department for evaluation breakthrough seizures. ?? Seizure (R56.9):?? patient has no recurrent episodes of seizures. He has history of??seizure disorder on multiple antiepileptic medication who is presenting with breakthrough seizures.?? Noticed VPA levels on lower side, he described that had Depakote dose changed in the past month ?? Plan:?? -continue home antiepileptic medications (Depakote, clonazepam, Keppra, lamotrigine) -pending Lamotrigine??levels. -Neurology cleared for DC, will FU with lamotrigine levels prior to changing any dosing, this test likely will take a week to come back -Will follow-up with neurology??outpatient closely -PT evaluation??for??dispo planning -Continue??seizure precautions ?? Alcohol dependence (F10.20):??no??signs of??alcohol withdrawal??at the??moment,??CIWA??score of 2. He described??that takes occasional beer,??infrequent.? Plan:?? -CIWA protocol with Ativan- very minimal scoring -continue multivitamin, Thiamine, Folic acid ?? COPD without exacerbation (J44.9):??no signs of COPD exacerbation, will monitor ?? VTE Prophylaxis:??Heparin SQ Code Status:??Full code Will plan for discharge tomorrow??after PT evaluation for disposition planning * Mello MACKEY, Nargis Sweet: PERFORM Event Display: Progress Note Hospital Authored Date: [id number] Patient ended up being cleared for discharge, please disregard the??below note and use discharge summary??to serve as note for the day. * Nargis Sandoval RN: PERFORM, SIGN, VERIFY, MODIFY, SIGN Event Display: Progress Note Hospital Authored Date: [id number] Patient: RAND WILKERSON Age: 43 years Sex: Male : 1980 Associated Diagnoses: None Author: Nargis Sandoval RN Findings Problem Related to Alteration in Neurological : Alteration in Neurological Function/new 08/29/2023 9:00 EDT Alteration in Neuro status Related to Seizure Goals & Outcomes, Neurological Lab studies/diagnostic tests within pt specific limits, Pt is safe with transfers & activities, Pt will be discharged without infection, Pt will be hemodynamically stable, Pt will be Neurologically stable, Pt will become pain free with appropriate intervention, Pt will maintain intact skin integrity, Pt will remain free from injury Interventions, Neurological Assess & monitor for seizure activity, Assess for aspiration and status epileptics, Assess seizure Hx, frequency/type/presence of aura, Document length of postictal phase & postictal activity, Document length of seizure and activity during seizure, During seizureactivity maintain pt safety & privacy, Initiate & maintain Seizure Precautions, Monitor for therapeutic levels of anti-seizure meds, Elevate HOB & keep head midline in sniffing position, Maintain ICP monitor & document readings, Minimize neuro stimulation BH Goals/Interventions, Neurological Yes Neurological, Problem Start 08/28/2023 15:00 Reviewed plan with, Neurological Patient Patient Progression, Neurological Pt progressing according to plan . Narrative/Incidental Pt AOx4, SB on tele, denies chest pain, dizzy/lightheadedness or chest discomfort. Vitals stable onRA. Pt has been on seizure precautions, equal strength bilaterally to the upper and lower extremities, PERRLA. Hand tremor noted when pt raises arms out infront, pt states that this has not been a new finding. Last BM was 08/26, offered pt bowel meds but pt refused at this time. Receiving Heparin SQfor DVT prophylaxis. Voiding in urinal at bedside. Physical Therapy pending. Plan is for possible discharge tomorrow (08/29) once pt is seen by PT. Pt is currently laying in bed, call pham in reach with bed in the lowest locked position. UPDATE: Pt was seen by PT this afternoon, ambulated down the hart without difficulty. Refer to PT note for more details. . * Reginald AVILA, Cristopher Oleary: PERFORM Event Display: Progress Note Hospital Authored Date: Patient: ??RAND WILKERSON ? Age:??43 Years?Sex:??Male?:??1980?? Chief Complaint/Reason for Consult presented after having seizures History of Present Illness no further seizures, pt doing well, back to baseline.? VPA level 21.8, lamotrigine level pending Review of Systems 5-point review of systems was negative except as detailed above. Physical Exam Vitals & Measurements Vital Signs?? Temperature: 98.4 DegF (08/29/23 11:00:00) Temperature Route: Oral (08/29/23 11:00:00) Pulse Rate:??51 bpm??Low (08/29/23 11:00:00) Respiratory Rate: 16 br/min (08/29/23 11:00:00) Systolic Blood Pressure: 108 mm Hg (08/29/23 11:00:00) Diastolic Blood Pressure: 57 mm Hg (08/29/23 11:00:00) Blood pressure sites: Arm, right (08/29/23 11:00:00) Mean Arterial Pressure: 68 mm Hg (08/28/23 15:57:00) Pulse Pressure: 51 mm Hg (08/29/23 11:00:00) Oxygen Saturation: 98 % (08/29/23 11:00:00) Mode of Delivery (Oxygen): Room air (08/29/23 11:00:00) Early Warning Score: 3 (08/29/23 11:48:29) Intake?? Output?? Oral Fluids: 240 mL (08:00) Urine Voided: 500 mL (11:00) Patient is awake alert interactive??and attentive, obese male in bed in [facility], a dentulous. ?? Pupils are??3 mm - 2 mm OU, symmetric smile??no noted dysarthria, tongue is midline ?? Moving all extremities symmetrically, strength grossly 5 out of 5 throughout ?? No??noted ataxia. Assessment/Plan Assessment:??43-year-old male with history of generalized epilepsy, bipolar, polysubstance use/alcohol use who is being seen today for breakthrough seizure. ?? Seizure:??43-year-old male with history of seizures, appears to be difficult to control based onhis medication regimen??here with breakthrough seizure, unclear if there were any significant provoking events, he does also report he had been very tremulous the past 4 days and does believe he had been taking about 4 times his sertraline dose, however his medications are managed by visiting nurse, and this is unlikely.?? We are awaiting lamotrigine??level as he is on a higher dose for someone on VPA, and his VPA levels had been on the lower side however I would hold off on adjusting this until we know his lamotrigine level. ??We did discuss seizure precautions will have him follow-up in clin ic??for medication adjustments if needed. ?? imp:??question of provoked seizure from acute change in sertraline dose ?? - Keppra 2 g twice daily - Lamictal 300 twice daily - Depakote 250 twice daily - clonazepam 1 mg nightly and 0.5 every morning ?? - check Lamictal level-pending - seizure precautions, q4 neuro checks - Ativan 2 mg for seizure lasting more than 5 minutes - c/w sertraline 50 daily - No driving for 6 months per [employer] law, d/w patient, he does not??drive? can followup outpt neurology ?? Discharge Planning:? Problem List/Past Medical History Ongoing COPD without exacerbation COVID Obese class I Obesity Polysubstance abuse Hospital Medications Medications (24) Active SCHEDULED: (12) Clonazepam 0.5 mg Tablet (clonazePAM 0.5 mg oral tablet) ??0.5 mg, By Mouth, Daily in AM Clonazepam 1 mg Tablet (clonazePAM 1 mg oral tablet) ??1 mg, By Mouth, Daily at bedtime Divalproex Sodium 500mg ER Tablet (Depakote ER Tablet) ??500 mg, By Mouth, 2 times a day Folic Acid 1 mg Tablet (Folic Acid Tablet) ??1 mg, By Mouth, Daily Heparin 5000 units/mL Inj (1 mL) (Heparin Inj) ??5,000 units 1 mL, Subcutaneous Injection, 2 times a day Keppra 500mg Tablet (levETIRAcetam 500 mg oral tablet) ??2,000 mg, By Mouth, 2 times a day LamoTRIGINE 100 mg Tablet (lamotrigine 100 mg oral tablet) ??300 mg, By Mouth, 2 times a day Multivitamin Therapeutic / Minerals Tablet (Multivit Therapeutic/Minerals Tablet) ??1 tablet, By Mouth, Daily NaCl 0.9% Flush 3ml (NaCL 0.9% Flush) ??3 mL, IV Push, Every 8 hours Pyridoxine 50 mg Tablet (Pyridoxine Tablet) ??50 mg, By Mouth, Daily Sertraline 50 mg Tablet (sertraline 50 mg oral tablet) ??50 mg, By Mouth, Daily Thiamine 100 mg Tablet (Thiamine Tablet) ??100 mg, By Mouth, 2 times a day CONTINUOUS: (0) PRN: (12) Acetaminophen 325 mg Tablet (Acetaminophen Tablet) ??650 mg, By Mouth, Every 4 hours Dextromethorphan-Guaifenesin 20 mg-200 mg/10 mL Liqu UD (Robitussin DM Liquid) ??10 mL, By Mouth, Every 4 hours Docusate Sodium 100 mg Capsule (Docusate Sodium Capsule) ??100 mg 1 capsule, By Mouth, 2 times a day Lorazepam 2 mg Inj Syringe (Ativan Inj) ??1 mg, IV Push Slowly, Every 5 minutes Lorazepam 2 mg Inj Syringe (Ativan Inj) ??1 mg, IV Push Slowly, Every 2 hours Lorazepam 2 mg Inj Syringe (Ativan Inj) ??2 mg, IV Push Slowly, Every 2 hours Lorazepam 2 mg Inj Syringe (Ativan Inj) ??2 mg, IV Push Slowly, Every hour Melatonin 3 mg Tablet (Melatonin Tablet) ??3 mg, By Mouth, Daily at bedtime NaCl 0.9% Flush 3ml (NaCL 0.9% Flush) ??3 mL, IV Push, Every 8 hours Polyethylene Glycol 17 Gm Powder (MiraLax Powder) ??17 Gm 1 pack/packet, By Mouth, Daily Senna Tablet ??8.6 mg 1 tablet, By Mouth, 2 times a day Simethicone 80 mg Chewable Tablet (Simethicone Tablet) ??80 mg, Chew, 3 times a day Allergies erythromycin??(rash) Recent Lab Results Abs. NRBC: 0 k/mm3 (08/29/23 10:53:00) Anion Gap: 9 (08/29/23 10:53:00) BUN: 20 mg/dL (08/29/23 10:53:00) Chloride: 105 mmol/L (08/29/23 10:53:00) Estimated GFR Creatinine: 102 ML/MIN/1.73 M2 (08/29/23 10:53:00) Hct:??40.4 %??Low (08/29/23 10:53:00) Hgb:??13.5 Gm/dL??Low (08/29/23 10:53:00) Lactate: 0.9 mmol/L (08/29/23 10:53:00) MCH: 31.3 pg (08/29/23 10:53:00) MCHC: 33.4 g/dL (08/29/23 10:53:00) MCV: 93.5 femtoliters (08/29/23 10:53:00) MPV: 11.4 femtoliters (08/29/23 10:53:00) Nucleated RBC (Automated): 0 #/100 WBC'S (08/29/23 10:53:00) Platelet Count:??141 k/mm3??Low (08/29/23 10:53:00) Potassium: 5 mmol/L (08/29/23 10:53:00) RBC:??4.32 m/mm3??Low (08/29/23 10:53:00) RDW-SD: 46.8 femtoliters (08/29/23 10:53:00) Sodium: 143 mmol/L (08/29/23 10:53:00) WBC: 4.8 k/mm3 (08/29/23 10:53:00) Consult note * Reginald AVILA, Cristopher Oleary: PERFORM, MODIFY Event Display: Consultation Note Authored Date: Patient: ??RAND WILKERSON ? Age:??43 Years?Sex:??Male?:??1980?? Chief Complaint/Reason for Consult Coming from home, having tremors for4 days. Stated he had metallic taste in mouth, brought in ambulance, had1 minute long seizure per EMS with full body movement. Currently postictal for EMS. History of Present Illness 43-year-old male with history of generalized epilepsy, bipolar, polysubstance use/alcohol use who is being seen today for breakthrough seizure. ?? Seizure patient with multiple previous admissions for breakthrough seizures, was last seen on 08/17/2022 by neurology, and at that point he had been following with Dr. Ballard, previous EEG had shown frontal spike and generalized waves/polyspike and wave.?? Last breakthrough seizure was in the context of cellulitis. ?? Home Med Regimen: Keppra 2 g twice daily Lamictal 300 twice daily Depakote 750 twice daily clonazepam 1 mg nightly and 0.5 every morning ?? Patient readmitted on 04/23/2023 for seizure, not in the context of missed medications was discharged home, and was readmitted on 08/27/2023 for shakes and tremors over the past 4 days, and had a 1 minute generalized seizure in the presence of EMS.?? Medications are managed by home nurse who deliversthem in a locked box, he had verbally reported that his Keppra level had been elevated recently.?? He was postictal in the emergency department, however returned to baseline in the emergency department, however around 6 PM had a another generalized seizure was Keppra loaded with 2 g Keppra 2 mg Ativan, had been treated with DuoNeb several times overnight for wheezing.?? CIWA scores had been in the 11-12 range on 08/26 and 5 this morning.? Workup in the emergency department had included a CBC which was unrevealing CMP valproic acid level21.8, Keppra level 22.1, benzodiazepine screen was positive. ?? Patient seen bedside in the emergency room, he is awake alert interactive and attentive,??he hadreported previously seeing ??Elio for his seizures have been transferring his care to [facility] however missed his initial intake appointment.?? He had also been seen last month and hospitalized at [facility]??for elevated Keppra levels, though it is not clear if his dose actually changed, and it does appear that he was discharged on the same dose at home, however they did decrease his Depakote??to 250 twice a day.?? He did also believe he was taking too much was Keppra around that time, and over the past several days??believes he was taking upwards of 200 mg of??sertraline, because there were extra pills in his??pillbox, he admitted to drinking 2 beers??3 days ago, and had a history of heavy alcohol use but is largely abstained for the past year.?? Over the past 3 to 4 days he does feel like he has been more tremulous, and shaking. Review of Systems 10-point review of systems was negative except as detailed above. Physical Exam Vitals & Measurements T:??97.8?F?? HR:??46??(Peripheral)?? RR:??18?? BP:??113/55?? SpO2:??100%?? HT:??183??cm?? WT:??107.7??kg?? BMI:??32.16?? Neuro Exam: General: obese caucasion male in bed in NAD, edentulous.?Mental Status: ?Awake alert interactive attentive, appropriate eye contact and affect,??speaks in complete sentences with appropriate grammar use. ? Cranial nerves: ?CNII: VFFTC ?CNII/III: PEARRL, 3->2mm ou ?CN III/IV/: no noted ptosis, EOMI ?CN V: facial sensation intact bilaterally ?CN VII: symetric eye closure, forehead wrinkle, smile ?CN VIII: Hears finger rub bilaterally ?CN IX, X, XII: no noted dysarthrita ?CN XI: trap/SCM 5/5 ?CN XII: tongue midline ? Motor: There is a??low amplitude high-frequency postural tremor present on outstretched hands, minimal action tremor on [id number], no resting component tremor.? Strength: normal bulk and tone ?Group ?L ?R ?Delt?5/5 ?5/5 ?Bicep ? 5/5? 5/5 ?Tricep ?5/5 ?5/5 ?Wrist extensor?5/5 ?5/5 ?Wrist flexor?5/5 ?5/5 ?Pronator teres?5/5 ?5/5 ?Hip flexor?5/5 ?5/5 ?Knee Ext ?5/5 ?5/5 ?Knee Flex?5/5 ?5/5 ?Ankle dorsiflex?5/5 ?5/5 ?Ankle platar flex?5/5 ?5/5 ? Sensory:?Light Touch: itact ? Reflexes: ?R ?L ?Biceps?2? 2 ?BR?2? 2 ?Knee?1?1 ?Ankle?tr?tr ? Robertson? neg? neg ? clonus?neg? neg Assessment/Plan Assessment:??43-year-old male with history of generalized epilepsy, bipolar, polysubstance use/alcohol use who is being seen today for breakthrough seizure. ?? Seizure:??43-year-old male with history of seizures, appears to be difficult to control based onhis medication regimen??here with breakthrough seizure, unclear if there were any significant provoking events, there may have been several, including potential recent alcohol use although he had only reported 2 beers recently, as well as??taking 4 times??his??normal dose of sertraline, though these are difficult to??verify (and he does have a visiting nurse which sets up his meds), as he did report taking 3 green pills??which he believed were sertraline on top of his normal dose, he had also reported tremor over the past 4 days which could occur in the context of withdrawl or acute SSRI dosing change.?? Labs had been notable for low??Depakote level, though he??is only currently taking 250 twice a day, his Keppra level is within normal limits though he did also receive 2 g??IV on admission.?? No changes to his medication regimen right now, check lamictal level.?? No changes to dosing atthis point.? imp:??question of provoked seizure from acute change in sertraline dose ?? -Keppra 2 g twice daily -Lamictal 300 twice daily -Depakote 250 twice daily -clonazepam 1 mg nightly and 0.5 every morning ?? - check lamictal level - seizure precautions, q4 neuro checks - Ativan 2 mg for seizure lasting more than 5 minutes - c/w sertraline 50 daily ?No driving for 6 months per [facility] [employer] law, d/w patient.? neurology will follow ?? Discharge Planning:? Problem List/Past Medical History Ongoing COPD without exacerbation COVID Obese class I Obesity Polysubstance abuse Procedure/Surgical History No qualifying data available. Home Medications Albuterol/Ipratropium: 1 puffs, Inhalation, 4 times a day Clonazepam: 0.5 mg = 1 tablet, By Mouth, Daily in AM Clonazepam: 1 mg = 1 tablet, By Mouth, Daily at bedtime, While in hosp Divalproex Sodium: 1,000 mg = 2 tablet, By Mouth, Daily Folic Acid: 1 mg = 1 tablet, By Mouth, Daily Ibuprofen: 600 mg, By Mouth, 3 times a day with meals Lamotrigine: 2 tablets, By Mouth, 2 times a day levETIRAcetam: 2,000 mg = 2 tablet, By Mouth, 2 times a day Melatonin: 5 mg = 1 tablet, By Mouth, Daily at bedtime Polyethylene Glycol 3350: 17 Gm, By Mouth, Daily Sertraline: 50 mg = 1 tablet, By Mouth, Daily Thiamine: 100 mg = 1 tablet, By Mouth, Daily Allergies erythromycin??(rash) Social History Alcohol Use: Current. Frequency: 1-2 times per week. Type: Beer. Exercise Self assessment: Good condition. Home/Environment Living situation: Home/Independent. Lives with: Mother. Nutrition/Health Diet: Regular. Substance Abuse Use: Past. Type: Cocaine, Heroin, Marijuana. Tobacco Use: 5-9 cigarettes (between 1/4 to 1/2 pack)/day in last 30 days. Interested in cessation: No. Family History No family history recorded. Note * Nargis Sandoval RN: PERFORM Event Display: Discharge/Transfer Note Hospital Authored Date: [id number] Nursing Discharge Note Entered On: 08/29/2023 17:56 EDT Performed On: 08/29/2023 17:55 EDT by Nargis Sandoval RN Nursing Discharge Note 2 Discharge Time : 08/29/2023 17:56 EDT Discharge Level of Care at Discharge : Homehealth/VNA Discharge VNA/Hospice/Home Care(v001) : Manuel Kohler [phone] Patient Left Unit Via : Ambulatory Patient Accompanied Off Unit with : Responsible adult DC Instructions Provided & Signed by Pt : Yes Patient Understands D/C Instructions : Yes Patient Instructions Discharge Signed : Yes Did Pt have Specialty Bed or Wound Vac : No Nargis Sandoval RN - 08/29/2023 17:55 EDT * Mello MACKEY, Nargis K: MODIFY, PERFORM, MODIFY Event Display: Discharge/Transfer Note Hospital Authored Date: [id number] Patient: ??RAND WILKERSON ? Age:??43 Years?Sex:??Male?:??1980?? Patient Information Discharge Location: [facility] Primary Care Physician: Matthieu Buenrostro MD Admit Date/Time: 08/27/23 17:53 Discharge Disposition Discharge Disposition: Home with Home Health Discharge Diagnosis Seizure (R56.9) Alcohol dependence (F10.20) COPD without exacerbation (J44.9) Seizure (R56.9) _ Discharge Medications Albuterol/Ipratropium (Combivent Respimat 20 mcg-100 mcg/inh inhalation aerosol)?1?puff(s)?Inhalation?4 times a day Clonazepam (clonazePAM 0.5 mg oral tablet)?1?tab(s)?0.5?Milligram?By Mouth?Daily in AM Clonazepam (clonazePAM 1 mg oral tablet)?1?tab(s)?1?Milligram?By Mouth?Daily at bedtime?While in hosp Divalproex Sodium (divalproex sodium 500 mg oral tablet, extended release)?500?Milligram?By Mouth?2 times a day Folic Acid (folic acid 1 mg oral tablet)?1?Milligram?1?tablet?By Mouth?Daily Ibuprofen (Motrin Tablet)?600?Milligram?By Mouth?3 times a day with meals Lamotrigine (lamotrigine 150 mg oral tablet)?2 tablets?By Mouth?2 times a day levETIRAcetam (levETIRAcetam 1000 mg oral tablet)?2?tab(s)?2,000?Milligram?By Mouth?2 times a day Melatonin (melatonin 5 mg oral tablet)?1?tab(s)?5?Milligram?By Mouth?Daily at bedtime Polyethylene Glycol 3350 (MiraLax oral powder for reconstitution)?17?gram?By Mouth?Daily Sertraline (sertraline 50 mg oral tablet)?1?tab(s)?50?Milligram?By Mouth?Daily Thiamine (Vitamin B1 100 mg oral tablet)?100?Milligram?1?tablet?By Mouth?Daily Medications Started None Medications Discontinued None Doses Changed Per neuro- Divalproex Sodium (divalproex sodium 500 mg oral tablet, extended release)?500?Milligram?By Mouth?2 times a day Allergies Allergies ?(Active and Proposed Allergies Only) erythromycin? (Severity: Unknown severity, Onset: Unknown) ?Reactions: rash ?? PCP Follow-Up/Heads-Up Patient was seen in hospital breakthrough seizure, followed by neurology, will follow-up outpatient.?? Unknown provoking event,??waiting on lamotrigine??level to??return prior to neurology deciding??if/when to change medication dosing.? Hospital Course Patient is a 43-year-old male who was admitted on 08-27-23 with complaint of breakthrough seizure. Patient was admitted and followed closely by neurology as well as hospital medicine. Levels were drawn for multiple medications that the patient is on, however these levels will likely not be back resulted??for another week. Patient remained seizure-free on hospital, unsure the provoking event. Full workup showed no acute process to explain seizure. Neurology will continue to follow closely in the outpatient setting, cleared him for discharge. He was on CIWA while here, very low scoring at time of discharge. PT is also seen the patient, no need for physical therapy services. At time discharge traci lorelei stable, will continue on PO medications and follow closely with PCP and neurology outpatient.All questions answered at bedside. Objective Assessment and Plan 43-year-old male patient with a medical history significant for seizure disorder and chronic obstructive pulmonary disease who was brought to the emergency department for evaluation breakthrough seizures. ?? Seizure (R56.9):?? patient has no recurrent episodes of seizures. He has history of??seizure disorder on multiple antiepileptic medication who is presenting with breakthrough seizures, workup revealing no acute processto explain??cause of breakthrough. Noticed VPA levels on lower side, he described that had Depakote dose changed in the past month ?? Plan:?? -continue home antiepileptic medications (Depakote, clonazepam, Keppra, lamotrigine) -pending Lamotrigine??levels. -Neurology cleared for DC, will FU with lamotrigine levels prior to changing any dosing, this test likely will take a week to come back -Will follow-up with neurology??outpatient closely -PT evaluation??recommended home with services?? -neuro discussed no driving for 6 months per [facility] state law with the patient,??he does not??drive? -neuro discussed seizure precautions with the patient -per neuro send on??Depakote 500mg BID as that is the??dose patient was getting in??hospital, otherwise no change to Keppra, Lamotrigine or Clonazepam ?? Alcohol dependence (F10.20):??no??signs of??alcohol withdrawal??at the??moment,??CIWA??score of 2. He described??that takes occasional beer,??infrequent.? Plan:?? -CIWA protocol with Ativan- very minimal scoring, has been??under 5??for greater than 24 hours. ??No signs or symptoms of withdrawal remaining -continue Thiamine, Folic acid ?? COPD without exacerbation (J44.9):??no signs of COPD exacerbation Vital Signs?? Temperature: 98.4 DegF (08/29/23 11:00:00) Temperature Route: Oral (08/29/23 11:00:00) Pulse Rate:??51 bpm??Low (08/29/23 11:00:00) Respiratory Rate: 16 br/min (08/29/23 11:00:00) Systolic Blood Pressure: 108 mm Hg (08/29/23 11:00:00) Diastolic Blood Pressure: 57 mm Hg (08/29/23 11:00:00) Blood pressure sites: Arm, right (08/29/23 11:00:00) Mean Arterial Pressure: 68 mm Hg (08/28/23 15:57:00) Pulse Pressure: 51 mm Hg (08/29/23 11:00:00) Oxygen Saturation: 98 % (08/29/23 11:00:00) Mode of Delivery (Oxygen): Room air (08/29/23 11:00:00) Early Warning Score: 3 (08/29/23 11:48:29) . Physical Exam Constitutional: Alert, in no distress. Mental Status: Oriented to person, place and time. Head: Normocephalic.?? Neck: Supple, Full range of motion. Respiratory: Clear to auscultation. No wheezing, rales or rhonchi. Cardiovascular: S1 S2 regular. No murmurs, rubs or gallops. Gastrointestinal: Abdomen soft, non-tender, non-distended. Normal bowel sounds.? Neurologic: No focal neurological deficits. Flexor plantar response. Moves all extremities spontaneously. Sensation intact bilaterally. Skin: No rashes or lesions. No petechiae or purpura.?? Musculoskeletal: No cyanosis or clubbing. No gross deformities. Normal range of motion. Heme/Lymphatics/Immun: Palpation of neck reveals no swelling or tenderness of neck nodes.?? Psychiatric: Normal mood and affect Follow-Up Appointments Added Follow Up ?Time Frame ?Comments Name Matthieu AVILA?3-5 day: call to discuss follow up visit?Be sure to follow-up with your primary care to keep them updated on this hospitalization and your general health. Patient Instructions You are seen in hospital for complaint of breakthrough seizure, we did not find any acute??cause ofthe seizures.?? Neurology is following you closely, they seem safe for discharge, likely will need to change from your medications outpatient but we are waiting on some labs to come back this week.??You should give them a call??this week to ensure that you have follow-up . ??As discus sed, be sure to??return to the emergency room??if you develop new concerning symptoms.? Post Discharge Nursing Home Home Health Face to Face *Denotes mandatory kramer ?? *I certify that this patient is under my care and that I or an allowed non- physician working with me had a face to face encounter with the patient on this date:??08/29/2023 15:57 ?? *The encounter with the patient was in whole, or in part, for the following medical condition, which is the primary diagnosis(es) for home health care:??Seizure (R56.9) Alcohol dependence (F10.20) COPD without exacerbation (J44.9) Seizure (R56.9) ?? *Select the indications for the discipline/s that are being arranged for this patient. Nursing (select all that apply): [_] None [X] Medication management (reconciliation, teaching)?? [X] Chronic disease management?? [_] Wound care and treatment?? [_] Home safety evaluation [_] Administer SQ/IM/IV medications?? [_] Cath care?? [_] Drain care?? [_] Trach or GT care?? Other _ Occupation Therapy (select all that apply): [_] None [_] ADL Management [_] Fall prevention training [_] Energy conservation [_] Cognitive training Other _ Physical Therapy (select all that apply): [_] None [_] Functional mobility training [_] Home exercise program to strengthen [_] Increase ROM?? [_] Falls prevention training [_] Home maintenance program for chronic disease Other _ Speech Therapy (select all that apply): [_] None [_] Swallow evaluation and training [_] Speech and language training [_] Cognitive training to process, organize, and/or recall information Other _ ? *Homebound due to (select all that apply): [X] Inability to leave home without assistance/supervision [_] Inability to ambulate without assistance [_] Pain [_] Decreased strength and endurance [_] Unsteady gait [_] Severe SOB and fatigue [_] Impaired transfers [_] Inability to negotiate stairs [_] Limited weight bearing [_] Mental status change? *Physician Signature:??Nargis Sarkar. JOANNE ?? *By signing this, I certify that I have personally evaluated the patient and agree with the findings and recommendations as documented above. ? HomeHealthFTF Results Discharge Labs BLOOD COUNT & DIFF WBC 4.8 k/mm3 ()?? 08/29/2023 10:53 RBC 4.32 m/mm3 (Low)?? 08/29/2023 10:53 Hgb 13.5 Gm/dL (Low)?? 08/29/2023 10:53 Hct 40.4 % (Low)?? 08/29/2023 10:53 MCV 93.5 femtoliters ()?? 08/29/2023 10:53 MCH 31.3 pg ()?? 08/29/2023 10:53 MCHC 33.4 g/dL ()?? 08/29/2023 10:53 Platelet Count 141 k/mm3 (Low)?? 08/29/2023 10:53 RDW-SD 46.8 femtoliters ()?? 08/29/2023 10:53 MPV 11.4 femtoliters ()?? 08/29/2023 10:53 Nucleated RBC (Automated) 0.0 #/100 WBC'S ()?? 08/29/2023 10:53 Abs. NRBC 0.0 k/mm3 ()?? 08/29/2023 10:53 Abs. Neut 4.1 k/mm3 ()?? 08/27/2023 16:53 Abs. Lymph 1.5 k/mm3 ()?? 08/27/2023 16:53 Abs. [place] 0.4 k/mm3 ()?? 08/27/2023 16:53 Abs. Eo 0.1 k/mm3 ()?? 08/27/2023 16:53 Abs. Baso 0.1 k/mm3 ()?? 08/27/2023 16:53 Neut % 66.2 % ()?? 08/27/2023 16:53 Lymph % 24.3 % ()?? 08/27/2023 16:53 [place] % 6.9 % ()?? 08/27/2023 16:53 Eos % 1.5 % ()?? 08/27/2023 16:53 Baso % 0.8 % ()?? 08/27/2023 16:53 Imm Gran 0.3 % ()?? 08/27/2023 16:53 Abs. Imm Gran 0.0 k/mm3 ()?? 08/27/2023 16:53 ?? CHEM GENERAL Sodium 143 mmol/L ()?? 08/29/2023 10:53 Potassium 5.0 mmol/L ()?? 08/29/2023 10:53 Chloride 105 mmol/L ()?? 08/29/2023 10:53 Bicarbonate Level 29 mmol/L ()?? 08/29/2023 10:53 Anion Gap 9 ()?? 08/29/2023 10:53 Glucose Level 84 mg/dL ()?? 08/29/2023 10:53 BUN 20 mg/dL ()?? 08/29/2023 10:53 Creatinine-Blood 0.95 mg/dL ()?? 08/29/2023 10:53 Estimated GFR Creatinine 102 ML/MIN/1.73 M2 ()?? 08/29/2023 10:53 Calcium 8.4 mg/dL (Low)?? 08/28/2023 06:00 Calcium, Ionized pH Corrected 1.20 mmol/L ()?? 08/27/2023 14:39 Phosphorus 3.6 mg/dL ()?? 08/28/2023 06:00 Magnesium 2.0 mg/dL ()?? 08/28/2023 06:00 Protein, Total 6.9 Gm/dL ()?? 08/27/2023 14:39 Albumin 4.3 Gm/dL ()?? 08/27/2023 14:39 AG Ratio 1.7 ()?? 08/27/2023 14:39 Alkaline Phosphatase 53 units/L ()?? 08/27/2023 14:39 AST (SGOT) 15 units/L ()?? 08/27/2023 14:39 ALT (SGPT) 12 units/L ()?? 08/27/2023 14:39 Bilirubin, Total 0.2 mg/dL ()?? 08/27/2023 14:39 Lactate 0.9 mmol/L ()?? 08/29/2023 10:53 ? HEME OTHER Hold Blue Top SPECIMEN DISCARDED AFTER 4 HOURS. ()?? 08/27/2023 19:27 ? TOXICOLOGY/TDM Ethanol, Serum or Plasma NONE DETECTED mg/dL ()?? 08/27/2023 14:39 Valproic Level 21.8 mg/L (Low)?? 08/28/2023 06:00 Barbiturate Screen, Urine NONE DETECTED ()?? 08/27/2023 21:07 Cannabinoid Screen, Urine NONE DETECTED ()?? 08/27/2023 21:07 Cocaine Metabolite Screen, Urine NONE DETECTED ()?? 08/27/2023 21:07 Methadone Screen, Urine NONE DETECTED ()?? 08/27/2023 21:07 Benzodiazepine Screen, Urine POSITIVE (Abnormal)?? 08/27/2023 21:07 Amphetamine Screen, Urine NONE DETECTED ()?? 08/27/2023 21:07 Opiate Screen, Urine NONE DETECTED ()?? 08/27/2023 21:07 Oxycodone Screen, Urine NONE DETECTED ()?? 08/27/2023 21:07 Levetiracetam Level 22.10 mg/L ()?? 08/28/2023 06:00 Buprenorphine, Urine Random NONE DETECTED ()?? 08/27/2023 21:07 Fentanyl Screen, Urine Result NONE DETECTED ()?? 08/27/2023 21:07 ? URINE OTHER Est Creatinine Clearance 111.34 mL/min ()?? 08/29/2023 11:47 ? VIROLOGY COVID-19 by RT-PCR NEGATIVE ()?? 08/27/2023 14:41 ? 35??minutes spent on discharge * Scheehser RN, Nargis: PERFORM Event Display: Patient Education/Instruction Authored Date: [id number] Inpatient Adult Discharge Instructions. [address] [address] Name: RAND WILKERSON : 1980?? Visit: 08/27/2023 17:53?? Current Date: 08/29/2023 17:19 ?? Account: [id number]?? Inpatient Adult Discharge Instructions We would like to thank you for allowing us to assist you with your healthcare needs. The following includes patient education materials and information regarding your injury/illness. Our entire staffstrives to provide an excellent experience for our patients and their families. PLEASE ENSURE YOU FOLLOW-UP PER THE INSTRUCTIONS BELOW! ?? YOUR OPINION IS IMPORTANT TO US! Please complete the survey you may receive by mail or email. Your feedback will be used to make improvements to the healthcare experiences of our patients and their families. Surveys are administered by [employer] ?? If further treatment with your primary care physician or another doctor is recommended, it is important for you to keep the appointment. Call your primary care physician or return to the Emergency Department immediately if your condition worsens, fails to improve, or new symptoms develop. If you need to find a doctor, you can call [facility] Link for a referral at [phone] or toll free at [phone] ([phone]) or log in to [email or web address].. ?? [facility], in keeping with [facility] guidance, no longer requires face masks for staff, patientsor visitors in most situations. Similiar to time spent indoors at other locations, there is the chance that you were exposed to repiratory viruses during your time with us (such as flu or COVID-19). If you develop symptoms concerning for a viral respiratory infection, please seek testing (and treatment if indicated) from your medical provider or home test kit. ?? You can view and manage your care through the patient portal or by using a health care parvin of your choosing. [employer] is a website that allows you to securely view your medical information including your hospital discharge summary, office visit summaries, medications and follow-up visits. You can also request appointments, renew medications, and request access to your medical information using a health care parvin of your choosing, or just ask a question. You can enroll at [email or web address] or register during your next office visit. You have been discharged from [facility], Patient Care Unit: D5A??. If you have any questions regarding these instructions, including results of studies pending, afteryou leave, please call us and we will be happy to assist you 28/09. [facility] Your Care Team Attending Physician Tomasa Cee MD?? Consulting Providers Tomasa Cee MD?? Discharging Providers Mello MACKEY, Nargis Sweet Reason for Your Visit presented after having seizures?? Your Diagnosis Alcohol dependence COPD without exacerbation Tests Performed Below is a partial list of the tests performed during your hospitalization. You may have had other tests and procedures not included in this list. Please discuss all test results with your provider. Alcohol Level Amphetamine Urine Screen Barbiturate Urine Screen Basic Metabolic Panel Benzodiazepine Urine Screen BUN Buprenorphine Urine Calcium Ionized Cannabinoid Urine Screen CBC CBC w/ Differential Cocaine Urine Screen Comprehensive Metabolic Panel COVID-19 (Novel Coronavirus), Rapid PCR Creatinine Depakote Level Electrolytes Fentanyl Screen, Urine Glucose Level Hold Blue Top Tube Lactate Level Levetiracetam Level Magnesium Level Methadone Urine Opiate Screen Urine Oxycodone Screen Urine Phosphorus Level Portable Chest Amphetamine Urine Screen?? Barbiturate Urine Screen?? Benzodiazepine Urine Screen?? Cannabinoid Urine Screen?? Clonazepam, Serum?? Cocaine Urine Screen?? Lamotrigine Level?? Opiate Screen Urine?? Primary Care Provider Name Matthieu AVILA? Advance Directive Health Care Proxy on File Yes - Health Care Proxy Yes - MOLST Discharge Vitals Temperature: 97.9 DegF Height: 183 cm Pulse Rate:??52 bpm??Low Weight: 101.1 kg Respiratory Rate: 18 br/min Body Mass Index:??30.19 kg/m2??Critical Systolic Blood Pressure: 113 mm Hg Body surface area: 2.27 Diastolic Blood Pressure: 80 mm Hg ?? Oxygen Saturation: 95 % ?? Studies Pending All studies ordered during this hospital stay have been completed unless listed below. Please discuss all pending results with your provider listed above in these instructions. ?? Amphetamine Urine Screen?? Barbiturate Urine Screen?? Benzodiazepine Urine Screen?? Cannabinoid Urine Screen?? Clonazepam, Serum?? Cocaine Urine Screen?? Lamotrigine Level?? Opiate Screen Urine?? What to do next Instructions From Your Doctor You are seen in hospital for complaint of breakthrough seizure, we did not find any acute??cause ofthe seizures.?? Neurology is following you closely, they seem safe for discharge, likely will need to change from your medications outpatient but we are waiting on some labs to come back this week.??You should give them a call??this week to ensure that you have follow-up . ??As discus sed, be sure to??return to the emergency room??if you develop new concerning symptoms.? Orders??:Regular Diet :as tolerated Status:Full :Good :Good? 08/29/23 16:04:00 EDT?? Prescriptions??, ??08/29/23 16:04:00 EDT?? You Need to Schedule the Following Appointments Follow Up with??Name Matthieu AVILA When:??Within 3-5 day: call to discuss follow up visit Why: Be sure to follow-up with your primary care to keep them updated on this hospitalization and your general health. Where: [address] [place] [id number]- Discharge Medications RAND WILKERSON :1980 Visit Date:08/27/2023 Medications: Please continue your medications until treatment is completed or stopped by your provider. Medications not listed below should be discontinued. Discuss any questions related to medications with your provider. What How Much When Instructions Next Dose Changed Divalproex Sodium (divalproex sodium 500 mg oral tablet, extended release) 500 Milligram Oral Twice a day Tonight 9pm Unchanged Albuterol/ Ipratropium (Combivent Respimat 20 mcg-100 mcg/ inh inhalation aerosol) 1 puff(s) Inhalation 4 times a day Resume home schedule Unchanged Clonazepam (clonazePAM 0.5 mg oral tablet) 1 tab(s) Oral Daily in the morning Tomorrow (08/29)??9am Unchanged Folic Acid (folic acid 1 mg oral tablet) 1 tab(s) Oral Daily Tomorrow (08/29)??9am Unchanged Ibuprofen (Motrin Tablet) 600 Milligram Oral 3 times a day with meals As Directed Unchanged Lamotrigine (lamotrigine 150 mg oral tablet) 2 tablets Oral Twice a day Tonight 9pm Unchanged levETIRAcetam (levETIRAcetam 1000 mg oral tablet) 2 tab(s) Oral Twice a day Tonight 9pm Unchanged Melatonin (melatonin 5 mg oral tablet) 1 tab(s) Oral Daily at Bedtime Tonight at bedtime Unchanged Polyethylene Glycol 3350 (MiraLax oral powder for reconstitution) 17 gram Oral Daily as needed Unchanged Sertraline (sertraline 50 mg oral tablet) 1 tab(s) Oral Daily Tomorrow (08/29) 9am Unchanged Thiamine (Vitamin B1 100 mg oral tablet) 1 tab(s) Oral Daily Tomorrow (08/29) 9am Prescription Given During Visit No new medications prescribed at time of discharge.?? Laboratory Results Below is a partial list of the most recent Laboratory test results done prior to this discharge. You may have had other tests and procedures not included in this list. Please discuss all test resultswith your provider. Est Creatinine Clearance - 111.34 mL/min (08/29/2023) Alcohol Level (08/27/2023) ???Ethanol, Serum or Plasma - NONE DETECTED Amphetamine Urine Screen (08/27/2023) ???Amphetamine Screen, Urine - NONE DETECTED Barbiturate Urine Screen (08/27/2023) ???Barbiturate Screen, Urine - NONE DETECTED Basic Metabolic Panel (08/28/2023) ???Sodium - 141 mmol/L???Potassium - 3.9 mmol/L???Chloride - 107 mmol/L???Bicarbonate Level - 22 mmol/L???Anion Gap - 12???Glucose Level - 84 mg/dL???BUN - 17 mg/dL???Creatinine-Blood - 0.80 mg/dL???Estimated GFR Creatinine - 113 ML/MIN/1.73 M2???Calcium - 8.4 mg/dL Benzodiazepine Urine Screen (08/27/2023) ???Benzodiazepine Screen, Urine - POSITIVE BUN (08/29/2023) ???BUN - 20 mg/dL Buprenorphine Urine (08/27/2023) ???Buprenorphine, Urine Random - NONE DETECTED Calcium Ionized (08/27/2023) ???Calcium, Ionized pH Corrected - 1.20 mmol/L Cannabinoid Urine Screen (08/27/2023) ???Cannabinoid Screen, Urine - NONE DETECTED CBC (08/29/2023) ???WBC - 4.8 k/mm3???RBC - 4.32 m/mm3???Hgb - 13.5 Gm/dL???Hct - 40.4 %???MCV - 93.5 femtoliters???MCH - 31.3 pg???MCHC - 33.4 g/dL???Platelet Count - 141 k/mm3???RDW-SD - 46.8 femtoliters???MPV - 11.4 femtoliters???Nucleated RBC (Automated) - 0.0 #/100 WBC'S???Abs. NRBC - 0.0 k/mm3 CBC w/ Differential (08/27/2023) ???WBC - 6.1 k/mm3???RBC - 4.16 m/mm3???Hgb - 13.1 Gm/dL???Hct - 39.1 %???MCV - 94.0 femtoliters???MCH - 31.5 pg???MCHC - 33.5 g/dL???Platelet Count - 148 k/mm3???RDW-SD - 47.5 femtoliters???MPV - 11.3 femtoliters???Nucleated RBC (Automated) - 0.0 #/100 WBC'S???Abs. NRBC - 0.0 k/mm3???Abs. Neut - 4.1 k/mm3???Abs. Lymph - 1.5 k/mm3???Abs. [place] - 0.4 k/mm3???Abs. Eo - 0.1 k/mm3???Abs. Baso - 0.1 k/mm3???Neut % - 66.2 %???Lymph % - 24.3 %???[place] % - 6.9 %???Eos % - 1.5 %???Baso % - 0.8 %???Imm Gran - 0.3 %???Abs. Imm Gran - 0.0 k/mm3 Cocaine Urine Screen (08/27/2023) ???Cocaine Metabolite Screen, Urine - NONE DETECTED Comprehensive Metabolic Panel (08/27/2023) ???Sodium - 142 mmol/L???Potassium - 4.5 mmol/L???Chloride - 105 mmol/L???Bicarbonate Level - 17 mmol/L???Anion Gap - 20???Glucose Level - 74 mg/dL???BUN - 21 mg/dL???Creatinine-Blood - 0.87 mg/dL???Estimated GFR Creatinine - 110 ML/MIN/1.73 M2???Calcium - 9.1 mg/dL???Protein, Total - 6.9 Gm/dL???Albumin - 4.3 Gm/dL???AG Ratio - 1.7???Alkaline Phosphatase - 53 units/L???AST (SGOT) - 15 units/L???ALT (SGPT) - 12 units/L???Bilirubin, Total - 0.2 mg/dL COVID-19 (Novel Coronavirus), Rapid PCR (08/27/2023) ???COVID-19 by RT-PCR - NEGATIVE Creatinine (08/29/2023) ???Creatinine-Blood - 0.95 mg/dL???Estimated GFR Creatinine - 102 ML/MIN/1.73 M2 Depakote Level (08/28/2023) ???Valproic Level - 21.8 mg/L Electrolytes (08/29/2023) ???Sodium - 143 mmol/L???Potassium - 5.0 mmol/L???Chloride - 105 mmol/L???Bicarbonate Level - 29 mmol/L???Anion Gap - 9 Fentanyl Screen, Urine (08/27/2023) ???Fentanyl Screen, Urine Result - NONE DETECTED Glucose Level (08/29/2023) ???Glucose Level - 84 mg/dL Hold Blue Top Tube (08/27/2023) ???Hold Blue Top - SPECIMEN DISCARDED AFTER 4 HOURS. Lactate Level (08/29/2023) ???Lactate - 0.9 mmol/L Levetiracetam Level (08/28/2023) ???Levetiracetam Level - 22.10 mg/L Magnesium Level (08/28/2023) ???Magnesium - 2.0 mg/dL Methadone Urine (08/27/2023) ???Methadone Screen, Urine - NONE DETECTED Opiate Screen Urine (08/27/2023) ???Opiate Screen, Urine - NONE DETECTED Oxycodone Screen Urine (08/27/2023) ???Oxycodone Screen, Urine - NONE DETECTED Phosphorus Level (08/28/2023) ???Phosphorus - 3.6 mg/dL Allergies (NKA means No Known Allergies) erythromycin??(rash) Problems Active Problems??(5) COPD without exacerbation?? COVID?? Obese class I?? Obesity?? Polysubstance abuse?? Education Materials Below is the list of Educational Leaflet Providered with your Discharge Instructions. [employer] Patient Education - Recurrent Seizure (Adult)?? Valuables and Belongings I fully understand and agree that [facility] accepts no responsibility for all my personal property including clothing, toilet articles, radios, jewelry, dentures, hearing aids, rings, money, or any other property that is in my possession or is brought to me after admission. I understand certain valuables may be placed in a hospital safe for a short period of time. I understand that the hospital is not liable for loss or damage due to accident, fire, or other natural occurrence while said property is in the safe. I accept full responsibility for any personal property that I keep with me, and will not hold the hospital responsible in case of loss or disappearance. I acknowledge that i have been encouraged to send valuables and belongings home. ?? Review of Valuable and Belonging List: With patient Date for Pt to Sign Valuables/Belongings: 08/27/23 19:19:00 ?? Other Discharge Information ? Case Management Discharge Plan?? Discharge Plan?? Discharge Agency Information?? Discharge Level of Care at Discharge: Homehealth/VNA [facility]/Home Care: [facility] [phone] Service Categories #1: Long Term ?? Service Comments #1: [facility] will continue to provide senior living. Someone will contact you to arrange a visit once you have been discharged home. If you do not hear from anyone in 1-2 days,please contact the agency ?? Pulmonary Rehab Status?? Pulmonary Rehab Discharge Status?? Respiratory Rate: 18 br/min ? Common Emergency Awareness Tips IS IT A STROKE? Act FAST and Check for these signs: FACE Does the face look uneven? ARM Does one arm drift down? SPEECH Does their speech sound strange? TIME Call at any sign of stroke ?? Heart Attack Signs Chest discomfort: Most heart attacks involve discomfort in the center of the chest and lasts more than a few minutes, or goes away and comes back. It can feel like uncomfortable pressure, squeezing, fullness or pain. Discomfort in upper body: Symptoms can include pain or discomfort in one or both arms, back, neck, jaw or stomach. Shortness of breath: With or without discomfort. Other signs: Breaking out in a cold sweat, nausea, or lightheaded. Remember, MINUTES DO MATTER. If you experience any of these heart attack warning signs, call to get immediate medical attention! ?? Smoking can increase your chances of developing chronic health problems and can cause harmful effects to other family members in your house. If you smoke, you are strongly encouraged to quit. Please call [facility] [employer] Link at [phone] or [phone] ([phone]) or log in to [email or web address] for referrals to smoking cessation programs. ?? 466 Suicide & Crisis Lifeline is available 28/09 if you or someone you know needs to find a reason to keep living. By calling 241 you'll be connected to a skilled, trained counselor at a crisis center in your area. INPATIENT DISCHARGE INSTRUCTIONS SIGNATURE PAGE RAND WILKERSON Location:[facility] Registration Date and Time:08/27/2023 17:53 EDT Primary Care Physician: Matthieu Buenrostro MD, Attending Physician: Tomasa Cee MD, I RAND WILKERSON, have received the above patient education materials/instructions and have verbalized understanding. If ambulance or transport services are being used I further acknowledge being given a choice of service. ?? If you need to contact me, please call me at this number: . Patient/Efficiency Clerk Name: Patient/Efficiency Clerk Signature: Relationship to Patient: Witness Name/Signature: Date: * Nargis Sandoval RN: PERFORM Event Display: Patient Education Leaflets Authored Date: [id number] Recurrent Seizure (Adult) ?? [id number] Recurrent Seizure (Adult) You have had another seizure today. A common cause of seizures that keep happening (recurrent seizures) is missing doses of seizure medicine. But sometimes seizures are hard to control even when you take the medicine correctly. If this is the case for you, your healthcare provider may need to increase your dosage. Or you may need to add or change to another medicine. Home care Follow these tips when caring for yourself at home. ??? Seizures aren???t predictable. So don't do anything that might cause danger to you or other people if you have another seizure. Until the seizures are under good control, take these safety steps:o Don???t drive, ride a motorcycle, or ride a bike. o Don???t operate dangerous equipment such as power tools. o Take showers instead of baths. o Don???t swim or climb ladders, trees, or roofs. ??? Tell your close friends and relatives about your seizure. Teach them what to do for you if it happensagain. ??? If medicine was prescribed to prevent seizures, take it exactly as directed. Missing doses will increase the risk of having another seizure. ??? If you miss a dose, take the missed dose assoon as you remember. If it's almost time for your next dose, skip the missed dose. Restart the medicine at your next scheduled time. Don???t take extra medicine to make up for the missed dose. ??? Wear a Medic-Alert bracelet to let emergency staff know about your condition. ??? Follow a regular sleep schedule so that you get at least 6 to 8 hours of restful sleep every night. This is especially important when you're sick with a cold or flu or another type of infection. ??? Alcohol and illegal drugs can cause you to have more seizures. Ask your provider if you are allowed to drink any alcohol at all. For future seizures, if you're alone: ??? If you feel a seizure coming on, lie down on a bed or on the floor with something soft under your head. This will keep you from falling. Lie on your left side, not on your back. This will let fluid drain out of your mouth and prevent choking. Be sure you are clear of any objects that might injure you during the seizure. Call for help if there is time. For future seizures, if someone is with you: ??? The person should help you get into a safe position and call for help. The person shouldn???t try to force anything in your mouth once the seizure begins. This could harm your teeth or jaw. ?? Follow-up care Follow up with your healthcare provider. Keep a seizure calendar to record how often you have a seizure. If you're being started on anti-seizure medicine, ask your provider if you need additional control. Seizure medicine can affect how well control pills work, and you could become . Some women who take seizure medicine also need certain vitamins. Tell your provider if you plan on getting or if you become . Don't drink alcohol until your provider tells you it???s OK. Each state has different laws that say when someone with seizures is allowed to drive. Some states require that a seizure disorder to be reported to the state. They don't allow you to drive until your seizures are controlled. Talk with your provider to see if this applies to you. ?? Important Don't drive until you've followed up with your healthcare provider and you've been cleared to drive. ?? When to get medical care Call your healthcare provider right away??if any of these occur: ??? Seizures happen more often or last longer than normal ??? A seizure lasts more than 5 minutes ??? You don???t wake up between seizures ??? Confusion that lasts more than 30 minutes after a seizure ??? Injury during a seizure ??? Fever of 100.4??F (38.0??C) or higher, or as advised by your provider ??? Unusual grouchiness, drowsiness, or confusion ??? Stiff or painful neck ??? Headache that gets worse? Last Reviewed Date: 2021 ?? [id number] [employer]. All rights reserved. This information is not intended as a substitute for professional medical care. Always follow your healthcare professional's instructions. ?? Patient Care team information Care Team Personnel Name: Gus Mcgraw RN Position: [facility] RN Member Role: Primary Care Nurse Name: Patience Mcpherson RN Position: [facility] RN Member Role: Primary Care Nurse Name: Isadora Rice RN Position: [facility] RN Member Role: Primary Care Nurse Name: Stas Erwin RN Position: [facility] RN Member Role: Primary Care Nurse Name: Melanie Sainz RN Position: S RN Member Role: Primary Care Nurse Name: Kavita Polo RN Position: [facility] RN Member Role: Primary Care Nurse Name: Matthieu Buenrostro MD Position: S Outreach Member Role: PCP Address: Address: [address] [place] [id number]- Name: See Chavez RN Position: S RN Member Role: Primary Care Nurse Name: Myke Mcfadden RN Position: S RN Member Role: Primary Care Nurse Name: Monika Marquez RN Position: [facility] RN Member Role: Primary Care Nurse Name: Elaine Reis RN Position: S RN Member Role: Primary Care Nurse Name: Veronika Dinero LPN Position: S RN Member Role: Primary Care Nurse Care Team Related Persons Name: JEANNE GIRON Address: [address] [address]
--- OUTSIDE RECORDS SUMMARY | 2023-11-03 19:01 | XMS_ITS | Continuity of Care Document ---
Author Organization [facility] ter Address [address] [place] [id number]- Care Team Providers Care Residential Installer Name Role Phone Name Matthieu AVILA Primary Care Physician En[place] [facility] [place] Date(s): 05/11/21 - 05/11/[address] [id number]- Encounter Diagnosis Seizure(Final) - 05/11/21 Discharge Disposition: A-D/C Home Attending Physician: Nereyda Flores MD Admitting Physician: Nereyda Flores MD Referring Physician: Not on Staff, Referring MD Allergies, Adverse Reactions, Alerts Substance Reaction Severity Status erythromycin Active Medications clonazePAM 0.5 mg oral tablet [...] opioid drug. Start Date: 12/28/20 Status: Ordered folic acid 1 mg oral tablet 1 mg, 1, tablet, By Mouth, Daily, # 30 tablet, Refills 0, Tot. Refills 0, Maintenance, 03/31/21 12:38:00 EST, Route to Pharmacy Electronically, [facility], Partial fill upon patient request if the prescription is for a schedule II opioid... Start Date: 03/31/21 Status: Ordered ibuprofen 200 mg oral tablet See Instructions, take 3 tablets by mouth daily in am and 4 tablets at bedtime., Maintenance, 01/29/21 15:29:00 EST, Instructions Replace Required Details, Partial fill upon patient request if the prescription is for a schedule II opioid drug. Start Date: 01/29/21 Status: Ordered lamotrigine 150 mg oral tablet [...] 5 mg, By Mouth, Daily at bedtime, PRN for insomnia, # 60 tablet, 0 Refills, Maintenance,10/16/20 10:21:00 EDT, Tablet, [facility]/pharmacy #[id number], Partial fill upon patient request if the prescription is for a schedule II opioid drug., 177.8, cm,... Start Date: 10/16/20 Status: Ordered MiraLax oral powder for reconstitution = 17 Gm, By Mouth, Daily, # 255 Gm, 0 Refills, Maintenance, 04/24/21 9:31:00 EST, [facility]/pharmacy #[id number], Partial fill upon patient request if the prescription is for a schedule II opioid drug., 17 Gm ByMouth Daily, 101.81, cm, 04/24/21 8:52:00 EST, [place]... Start Date: 04/24/21 Status: Ordered phenytoin 200 mg oral capsule, extended release 1 capsule = 200 mg, By Mouth, 2 times a day, # 60 capsule, 0 Refills, Maintenance, 10/16/20 10:43:00 EDT, ER Capsule, [id number], Partial fill upon patient request if the prescription is for a schedule II opioid drug., 177.8, cm, 10/16/20 7:53... Start Date: 10/16/20 Status: Ordered Problem List Condition Effective Dates Status Health Status Inform ant COPD without exacerbation(Confirmed) Active COVID(Confirmed) Active Obesity(Confirmed) Active Polysubstance abuse(Confirmed) Active Results Radiology Reports * Exam Date Time Procedure Performing Provider Status 05/11/21 9:02 AM Shoulder Min 2 Views Right Christian Rowell; Auth (Verified) Notes: (Shoulder Min 2 Views Right) Reason For Exam: with Pain;Trauma RESULT: Shoulder Min 2 Views Right Shoulder Min 2 Views Right, 3 views Hx of Present Illness: pt reports his bdfaax-uk-yja heard him fall this morning, went to check on him and found him having a seizure. hx epilepsy. he is currently A O x4. reporting right-sided back right-arm pain r t fall; Reason: Trauma; with Pain; Clinical Question(s): Fracture COMPARISON: 12/27/2020. FINDINGS: There is no evidence of acute fracture or dislocation. Again demonstrated is cortical irregularity at the greater tubercle compatible with posttraumatic change. Again seen are soft tissue calcifications adjacent to the humeral head. IMPRESSION: Stable chronic findings without evidence of acute fracture or dislocation. WSN: [id number] Ordering Physician: Caty Perdomo Dictated By: Eva Dumas MD Dictated Date/Time: 05/11/21 9:16 am Reviewed By: Eva Dumas MD Signed By: Eva Dumas MD Signed Date/Time: 05/11/21 9:16 am Transcribed By: JOJO Transcribed Date/Time: 05/11/21 9:07 am Vital Signs Most recent to oldest [Reference Range]: 1 2 3 Oxygen Saturation [94-100 %] 100 % (05/11/21 9:56 AM) 98 % (05/11/21 8:22 AM) Pulse Rate [55-90 bpm] 57 bpm (05/11/21 9:56 AM) 58 bpm (05/11/21 8:16 AM) Blood Pressure [90-138/55-84 mm Hg] 127/80mm Hg (05/11/21 9:56 AM) 129/78mm Hg (05/11/21 8:16 AM) Respiratory Rate [16-30 br/min] 16 br/min (05/11/21 9:56 AM) 18 br/min (05/11/21 8:16 AM) Temperature [96.8-100.4 DegF] 98.2 DegF (05/11/21 9:56 AM) 98.2 DegF (05/11/21 8:16 AM) Liters per Minute 0 L/min (05/11/21 8:22 AM) Mode of Delivery (Oxygen) Room air (05/11/21 9:56 AM) Room air (05/11/21 8:22 AM) Room air (05/11/21 8:16 AM) Blood pressure sites Arm, left (05/11/21 9:56 AM) Arm, left (05/11/21 8:16 AM) Temperature Route Oral (05/11/21 9:56 AM) Oral (05/11/21 8:16 AM)
--- OUTSIDE RECORDS SUMMARY | 2023-11-03 19:01 | XMS_ITS | Continuity of Care Document ---
Author Organization [facility] Address [address] [place] [id number]- Care Team Providers Care Project Management Professor Name Role Phone Name Matthieu AVILA Primary Care Physician Encounter [place] Date(s): 12/01/21 - 12/03/[address] [address] Encounter Diagnosis Breakthrough seizure(Final) - 12/01/21 Discharge Disposition: A-D/C Home Attending Physician: Mono Givens MD Admitting Physician: Ketan Prado MD Referring Physician: Not on Staff, Referring [...] sodium 500 mg oral tablet, extended release 2 tablet = 1,000 mg, By Mouth, Daily, # 60 tablet, 3 Refills, Maintenance, 12/03/21 8:46:00 EDT, ERTablet, [facility], Partial fill upon patient request if the prescription is for a schedule II opioid drug., 185.2, cm, 09/12/21 7:08:00... Start Date: 12/03/21 Status: Ordered folic acid 1 mg oral tablet 1 mg, 1, tablet, By Mouth, Daily, # 30 tablet, Refills 0, Tot. Refills 0, Maintenance, 03/31/21 12:38:00 EST, Route to Pharmacy Electronically, [facility], Partial fill upon patient request [...] opioid drug. Start Date: 12/01/21 Status: Ordered naproxen 500 mg oral tablet 1 tablet = 500 mg, By Mouth, 2 times a day, PRN Pain , Mild, # 20 tablet, 0 Refills, Maintenance, 12/01/21 17:33:00 EDT, Partial fill upon patient request if [...] without exacerbation Confirmed Active COVID Confirmed Active Obesity Confirmed Active Polysubstance abuse Confirmed Active Results Orders for Microbiology Reports Name Date Blood Culture (BLOOD CULTURE) 12/01/21 Blood Culture 12/01/21 Blood Culture #2 12/01/21 Microbiology Reports TEST:Blood Culture STATUS:Unauthenticated BODY SITE: SOURCE:Blood COLLECTED DATE/TIME:12/01/21 8:42 PM Blood Culture SPECIMEN DESCRIPTION : BLOOD NO SITE SPECIAL REQUESTS : CRITICAL VALUE CALLED AND VERIFIED BY READBACK FOR: GRAM POSITIVE COCCI TO [id number], D5A, 12/02/21 AT 2358 BY TECH [id number] CULTURE : GRAM POSITIVE COCCI Staphylococcus species (not S. aureus) was identified by multi-plex PCR REPORT STATUS : PRELIMINARY REPORT TEST:Blood Culture, Second Order STATUS:Unauthenticated BODY SITE: SOURCE:Blood COLLECTED DATE/TIME:12/01/21 7:42 PM Blood Culture, Second Order SPECIMEN DESCRIPTION : BLOOD LEFT HAND SPECIAL REQUESTS : NONE CULTURE : NO GROWTH AFTER 48 HOURS REPORT STATUS : PRELIMINARY REPORT TEST:Blood Culture STATUS:Unauthenticated BODY SITE: SOURCE:Blood COLLECTED DATE/TIME:12/01/21 7:05 PM Blood Culture SPECIMEN DESCRIPTION : BLOOD RAC SPECIAL REQUESTS : NONE CULTURE : NO GROWTH AFTER 48 HOURS REPORT STATUS : PRELIMINARY REPORT Vital Signs Most recent to oldest [Reference Range]: 1 2 3 Oxygen Saturation [94-100 %] 98 % (12/03/21 9:00 AM) 99 % (12/03/21 8:00 AM) 99 % (12/03/21 4:55 AM) Pulse Rate [55-90 bpm] 60 bpm (12/03/21 9:00 AM) 49 bpm *L* (12/03/21 8:00 AM) 66 bpm (12/03/21 4:55 AM) Blood Pressure [90-138/55-84 mm Hg] 117/64mm Hg (12/03/21 9:00 AM) 121/64mm Hg (12/03/21 8:00 AM) 125/87mm Hg (12/03/21 4:55 AM) Respiratory Rate [16-30 br/min] 18 br/min (12/03/21 9:00 AM) 18 br/min (12/03/21 8:00 AM) 18 br/min (12/03/21 4:55 AM) Temperature [96.8-100.4 DegF] 98.1 DegF (12/03/21 9:00 AM) 97.5 DegF (12/03/21 8:00 AM) 97.5 DegF (12/03/21 4:55 AM) Mode of Delivery (Oxygen) Room air (12/03/21 9:00 AM) Room air (12/03/21 8:00 AM) Room air (12/03/21 4:55 AM) Blood pressure sites Arm, left (12/03/21 9:00 AM) Arm, left (12/03/21 8:00 AM) Arm, left (12/03/21 4:55 AM) Temperature Route Oral (12/03/21 9:00 AM) Temporal (12/03/21 8:00 AM) Temporal (12/03/21 4:55 AM) Patient Care team information Personnel Name: Matthieu Buenrostro MD Address: Address: [address] [place] [id number]
--- OUTSIDE RECORDS SUMMARY | 2023-11-03 19:01 | XMS_ITS | Continuity of Care Document ---
Author Organization [facility] Address [address] [place] [id number]- Care Team Providers Care Film Loader Name Role Phone Name Matthieu AVILA Primary Care Physician [phone] [place] [facility] [place]22 - 08/17/[address] [address]- Encounter Diagnosis Breakthrough seizure(Final) - 08/16/22 Discharge Disposition: A-D/C Home Attending Physician: Marbella Fox MD Admitting Physician: Edison Briggs MD Referring Physician: Not on Staff, Referring MD Allergies, Adverse Reactions, Alerts Substance Reaction Severity Status erythromycin rash Active Medications Acetaminophen Tablet 650 mg, Tablet, By Mouth, Every 4 hours, PRN for Pain , Mild, Temperature Greater than 100.5, Routine, 08/16/22 21:20:00 EDT Start Date: 08/16/22 Stop Date: 08/17/22 Status: Discontinued clonazePAM 0.5 mg oral tablet 1 tablet [...] 3 Refills, Maintenance, 12/03/21 8:46:00 EDT, ERTablet, [facility], Partial fill upon patient request if the prescription is for a schedule II opioid drug., 185.2, cm, 09/12/21 7:08:00... Start Date: 12/03/21 Status: Ordered folic acid 1 mg oral tablet 1 mg, 1, tablet, By Mouth, Daily, # 30 tablet, Refills 0, Tot. Refills 0, Maintenance, 03/31/21 12:38:00 EST, Route to Pharmacy Electronically, [facility], Partial fill upon patient request if [...] Obesity Confirmed Active Polysubstance abuse Confirmed Active Vital Signs Most recent to oldest [Reference Range]: 1 2 3 Height 186 cm (08/17/22 10:23 AM) 186 cm (08/17/22 7:01 AM) 186 cm (08/17/22 5:15 AM) Weight 107.5 kg (08/17/22 5:15 AM) 100 kg (08/17/22 1:44 AM) Oxygen Saturation [94-100 %] 97 % (08/17/22 10:23 AM) 100 % (08/17/22 7:01 AM) 98 % (08/17/22 5:24 AM) Pulse Rate [55-90 bpm] 50 bpm *L* (08/17/22 10:23 AM) 51 bpm *L* (08/17/22 7:01 AM) 52 bpm *L* (08/17/22 5:24 AM) Body Mass Index [18.5-24.99 kg/m2] 31.07 kg/m2 *>HHI* (08/17/22 5:15 AM) Blood Pressure [90-138/55-84 mm Hg] 119/68mm Hg (08/17/22 10:23 AM) 108/73mm Hg (08/17/22 7:01 AM) 107/65mm Hg (08/17/22 5:24 AM) Respiratory Rate [16-30 br/min] 17 br/min (08/17/22 10:23 AM) 18 br/min (08/17/22 9:31 AM) 17 br/min (08/17/22 7:01 AM) Temperature [96.8-100.4 DegF] 97.6 DegF (08/17/22 10:23 AM) 97.7 DegF (08/17/22 7:01 AM) 98.3 DegF (08/17/22 5:24 AM) Liters per Minute 2 L/min (08/17/22 10:23 AM) 2 L/min (08/17/22 7:01 AM) 2 L/min (08/17/22 5:24 AM) Mode of Delivery (Oxygen) Nasal cannula (08/17/22 10:23 AM) Nasal cannula (08/17/22 7:01 AM) Nasal cannula (08/17/22 5:24 AM) Blood pressure sites Arm, left (08/17/22 10:23 AM) Arm, right (08/17/22 7:01 AM) Arm, right (08/17/22 5:24 AM) Temperature Route Oral (08/17/22 10:23 AM) Oral (08/17/22 7:01 AM) Oral (08/17/22 5:24 AM) Dry Weight 107.5 kg (08/17/22 5:15 AM) Social History Social History Type Response Smoking Status 5-9 cigarettes (betw een 1/4 to 1/2 pack)/day in last 30 days; Interested in cessation: No entered on: 08/17/22 Sex Admission evaluation note * Estela Crum MD: MODIFY Estela Crum MD: MODIFY, MODIFY, MODIFY Conner DODes: MODIFY, MODIFY Conner DO Des: MODIFY, MODIFY Conner DO, Des: MODIFY, MODIFY Conner DO, Des: MODIFY, MODIFY Conner DO, Des: MODIFY, MODIFY Conner DO, Des: MODIFY, PERFORM Conner DO, Des: PERFORM, MODIFY Conner DO, Des: MODIFY, MODIFY Conner DO, Des: MODIFY, MODIFY Conner DO, Des: MODIFY, MODIFY Conner DO, Des: MODIFY, MODIFY Conner DO, Des: MODIFY, MODIFY Conner DO, Des: MODIFY, MODIFY Conner DO, Des: MODIFY, MODIFY Conner DO, Des: MODIFY, MODIFY Conner DO, Des: MODIFY, MODIFY Conner DO, Des: MODIFY, MODIFY Conner DO, Des: MODIFY Event Display: Admission Note Authored Date: Patient: ??RAND WILKERSON ? Age:??42 Years?Sex:??Male?:??1980?? Chief Complaint/Reason for Consultation 3 witnessed seizures (about a minute each) within 30 mins prior to arrival. pt hx notable for epilepsy. 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 ?? The patient reports he does not remember the seizure event or duration,??even details arriving to the hospital remain unclear. He does remember feeling off all day and recalls before his seizure thathe was hot and sweating from the outside temperature without AC. He denies knowledge of any trigger, states that possible medication adjustment with clonazepam and the overnight dose being reduced inhalf. Otherwise he reports that he has been taking his AED's as prescribed and denies any recent substance use or alcohol use. He denies any recent illness, fevers, chills,??nausea, vomiting or diarrhea.?? His last breakthrough seizure was about 6 months ago. ?? On arrival to the ED the pt received 1 g of Keppra IV along with 2 mg of Ativan for muscular jerking movements. He also received 200 mg of lamotrigine and 2 g of Keppra p.o. Vital signs on presentation showed the patient to be afebrile, heart rate in the 60s to 70s, blood pressure 109/65, 135/65, saturating 98% on room air. Labs showed showed a BMP within normal limits, Keppra level of 31.7, no ethanol detected in serum plasma. ?? At bedside the patient was resting comfortably,??alert and oriented to person, place and situation,??endorsed feeling postictal on arrival,??however??was??speaking coherently??and lucid during ourconversation. He was unsure what caused his seizure, but thinks it could be due to medication adjustment of clonazepam. He was otherwise feeling better he wanted to be observed overnight in case he had a repeat seizure. Review of Systems A review of systems was completed and is otherwise negative except as mentioned in history of present illness. Objective ? Vital Signs?? Temperature: 98.6 DegF (08/16/22 18:13:00) Temperature Route: Oral (08/16/22 18:13:00) Pulse Rate: 72 bpm (08/16/22 20:29:00) Respiratory Rate: 20 br/min (08/16/22 20:29:00) Systolic Blood Pressure: 135 mm Hg (08/16/22 20:29:00) Diastolic Blood Pressure: 65 mm Hg (08/16/22 20:29:00) Blood pressure sites: Arm, left (08/16/22 18:13:00) Mean Arterial Pressure: 80 mm Hg (08/16/22 18:13:00) Pulse Pressure: 44 mm Hg (08/16/22 18:13:00) Oxygen Saturation: 99 % (08/16/22 20:29:00) Mode of Delivery (Oxygen): Room air (08/16/22 20:29:00) Early Warning Score: 0 (08/16/22 20:38:15) ? Intake/Output? No Data Available ? Physical Exam General: The patient was found resting and in no acute distress. HEENT:??NCAT, EOMI, no scleral icterus,??moist mucus membranes, trachea midline. Cardiovascular: RRR S1 and S2 heard with no murmurs, rubs or gallops. Respiratory: Breath sounds clear to auscultation bilaterally. No wheezing. GI: Soft. Nontender and nondistended. Normal bowel sounds present. MSK: No edema, no erythema in the lower extremities. Skin:??No rashes, bruises or skin breakdown. Neuro: eyes PERRL, CN II-XII grossly intact. No gross motor or neuro deficits. Sensation intact throughout. Psych: Alert and oriented x3, appropriate level of concern and pleasant. 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 He is being admitted for further observation,??pending neurology consultation. ?? Breakthrough seizures Epilepsy Patient??presented after witnessed seizures at home??without a clear triggering factor. Patient remembers feeling off during the day before his seizure??and states that he was also hot??and sweating??due to??the elevated temperature outside, he does not have an AC at home.?? He denies any??recent illness, fevers or chills,??denies any nausea, vomiting??abdominal pain or diarrhea. Patient denies any??alcohol or substance use, ethanol level was negative. He does report that??there was a recent adjustment in his clonazepam dosing from 1 mg nightly??to??0.5 mg nightly,??which??he thought may??be the cause for his seizure. Keppra level was 31.7, on last admission for seizure in November 2021 the Keppra level was 44.7, prior to that was also at 31. Patient states he has been adherent to??AED??medications. His last breakthrough seizure was about 6months ago. ?? Plan: - Neurology consulted - Lamictal and Depakote level pending - Every 4 neuro-checks and seizure precautions - Ativan 2 mg PRN for breakthrough seizure - Increase evening Clonazepam to 1 mg QHS - prior dose, increase from home dose of 0.5 mg - Continue clonazepam 0.5 mg daily in the AM?? 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 Chronic stable issues COPD: not in exacerbation - DuoNebs ordered PRN History of alcohol abuse: Continue home thiamine and folate ?? Quality Measures: DVT ppx: Encourage early ambulation Diet: Regular diet Code status: full code??- confirmed at bedside ?? Discussed with ??Radames ?? - Des Conner DO - PGY2 - Internal Medicine - Pager # [phone] ? Attending Attestation:??I have seen and evaluated this patient- 08/16/22 in ED A pod after he presented for evaluation of recurrent witnessed breakthrough seizures at home in the setting of epilepsy and recent reduction in clonazepam dosing with reported adherence to other AEDs and no other recent changes to meds, signs of infection. Awaiting levels on other AEDs. Dehydration related to heat was another consideration but appears euvolemic and labs show nl lytes/renal function. . ??I have discussed the case and its management with the resident and agree with the findings and plan as documented in the resident???s note. ?? Histories Allergies Allergies ?(Active and Proposed Allergies Only) erythromycin? (Severity: Unknown severity, Onset: Unknown) ?Reactions: rash ? Past Medical History/Problem List Active Problems??(5) COPD without exacerbation COVID 03/29 Obese class I Polysubstance abuse ? Past Surgical History No surgery history documented. ? Social History Alcohol Details:??Use: Current. ??Frequency: Daily. ??Type: Beer, Liquor. ??Other: Up to a 12 pack of beer and multiple shots a day, drinks daily but amount varies. He does not currently drive because of seizure diisorder and is aware that he cannot drive within 6months of an event. He smokes 7-10 ciagarettes/day. Says no current etoh. ?? Family History No family history recorded. ? Medications Home Medications Albuterol/Ipratropium (Combivent Respimat 20 mcg-100 mcg/inh inhalation aerosol)?1?puff(s)?Inhalation?4 times a day Clonazepam (clonazePAM 0.5 mg oral tablet)?1?tab(s)?0.5?Milligram?By Mouth?Daily in AM *Clonazepam (clonazePAM 1 mg oral tablet)?1?tab(s)?1?Milligram?By Mouth?Daily at bedtime??--> 0.5mg bi recent reduction Divalproex Sodium (divalproex sodium 500 mg oral [...] oral tablet)?100?Milligram?1?tablet?By Mouth?Daily ? Results Recent Labs CHEM GENERAL Sodium 140 mmol/L ()?? 08/16/2022 17:36 Potassium 4.2 mmol/L ()?? 08/16/2022 17:36 Chloride 104 mmol/L ()?? 08/16/2022 17:36 Bicarbonate Level 24 mmol/L ()?? 08/16/2022 17:36 Anion Gap 12 ()?? 08/16/2022 17:36 Glucose Level 95 mg/dL ()?? 08/16/2022 17:36 Glucose, POC 79 mg/dL ()?? 08/16/2022 17:49 BUN 19 mg/dL ()?? 08/16/2022 17:36 Creatinine-Blood 0.9 mg/dL ()?? 08/16/2022 17:36 Estimated GFR Creatinine 110 ML/MIN/1.73 M2 ()?? 08/16/2022 17:36 Calcium 8.9 mg/dL ()?? 08/16/2022 17:36 Lactate 1.3 mmol/L ()?? 08/16/2022 17:36 ?? HEME OTHER Hold Blue Top SPECIMEN DISCARDED AFTER 4 HOURS. ()?? 08/16/2022 17:36 ?? MISC. CHEMISTRY Hold Green Top SPECIMEN DISCARDED AFTER 1 WEEK ()?? 08/16/2022 17:36 ?? TOXICOLOGY/TDM Ethanol, Serum or Plasma NONE DETECTED mg/dL ()?? 08/16/2022 17:36 Levetiracetam Level 31.70 mg/L ()?? 08/16/2022 17:36 ?? VIROLOGY COVID-19 by RT-PCR NEGATIVE ()?? 08/16/2022 20:35 ? Urinalysis?? No qualifying data available. ?? Microbiology ?? COVID-19 (Novel Coronavirus), Rapid PCR?? Completed?? Source: Nasal Body Site: Nose Collected Dt/Tm: 08/16/2022 20:20 Last Updated Dt/Tm: 08/16/2022 21:27 ? Hospital Progress note * Thelma Johnson RN: PERFORM Event Display: Progress Note Hospital Authored Date: Patient discharged home left walking to [facility]. All belongings and discharge papers in patient's possession. Stable upon discharge. * Isadora Rice RN: PERFORM, SIGN, VERIFY Event Display: Progress Note Hospital Authored Date: Patient: RAND WILKERSON Age: 42 years Sex: Male : 1980 Associated Diagnoses: None Author: Isadora Rice RN Findings Narrative/Incidental Pt arrived from ED A/Ox4, no SOB, no CP. V/S stable, SB on Tele. Seizure precaution in place. callbell withn reach. awaiting for MD to be seen. not in any pain or discomfort. will continue to monitor.. Note * Marbella Fox MD: PERFORM Event Display: Discharge/Transfer Note Hospital Authored Date: Patient: ??RAND WILKERSON ? Age:??42 Years?Sex:??Male?:??1980?? Patient Information Discharge Location: [facility] Primary Care Physician: Matthieu Buenrostro MD Admit Date/Time: 08/16/22 17:02 Discharge Disposition Discharge Disposition: Home: No Services Discharge Diagnosis Breakthrough seizure (G40.919) ?? _ Discharge Medications Albuterol/Ipratropium (Combivent Respimat 20 [...] B1 100 mg oral tablet)?100?Milligram?1?tablet?By Mouth?Daily ? Quality Measures Tobacco Use Treatment:? Durable Medical Equipment Ambulatory devices needed: None (08/16/22) ? Medications Started none Allergies Allergies ?(Active and Proposed Allergies Only) erythromycin? (Severity: Unknown severity, Onset: Unknown) ?Reactions: rash ? Objective Assessment and Plan ?? 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 He is being admitted for further observation. Further episode of seizure. ??Patient mention he is compliant with his current seizure medication. ??Has been evaluated by neurology.?? Neurology does not recommend any modification in his antiepileptic regimen.?? He will be discharged home today. ??Patient was advised not to drive for 6 months.?? Patient was also advised to follow-up with his??primary neurologist. ? Breakthrough seizures Epilepsy Patient??presented after witnessed seizures at home??without a clear triggering factor. No further episodes of seizure Has been seen by neurology Continue current antiepileptic regimen which includes??Lamictal 300 mg twice daily,??Keppra??2 g twice daily, Depakote 500 mg twice daily Continue clonazepam at home dose Follow-up with??neurologist Dr. Ballard Do not drive for 6 months ? Chronic stable issues COPD: not in exacerbation History of alcohol abuse: Continue home thiamine and folate . Physical Exam GENERAL: In no apparent distress HEENT: Head normocephalic, PERRL,Moist mucous membrane. 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 ? Consultants ??neurologist Pending Results Add On Lab Order ordered on 08/17/2022 Add On Lab Order ordered on 08/17/2022 Add On Lab Order ordered on 08/17/2022 BUN ordered on 08/17/2022 Creatinine ordered on 08/17/2022 Electrolytes ordered on 08/17/2022 Lamotrigine Level ordered on 08/16/2022 Magnesium Level ordered on 08/17/2022 Follow-Up Appointments Added Follow Up ?Time Frame ?Comments Breanna Ballard MD?pl call to schedule?? follow up Name Matthieu AVILA?1 to 2 weeks Patient Instructions Please continue taking seizure medication as?? you were taking before this admission. ??Follow up with your Neurologist . Do not drive for 6 months. Post Discharge Care Discharge ?08/17/22 11:50:00 EDT Discharge Prescriptions ?None, ??08/17/22 11:50:00 EDT Home Health Face to Face ^HomeHealthFTF Results Discharge Labs CHEM GENERAL Sodium 140 mmol/L ()?? 08/16/2022 17:36 Potassium 4.2 mmol/L ()?? 08/16/2022 17:36 Chloride 104 mmol/L ()?? 08/16/2022 17:36 Bicarbonate Level 24 mmol/L ()?? 08/16/2022 17:36 Anion Gap 12 ()?? 08/16/2022 17:36 Glucose Level 95 mg/dL ()?? 08/16/2022 17:36 Glucose, POC 79 mg/dL ()?? 08/16/2022 17:49 BUN 19 mg/dL ()?? 08/16/2022 17:36 Creatinine-Blood 0.9 mg/dL ()?? 08/16/2022 17:36 Estimated GFR Creatinine 110 ML/MIN/1.73 M2 ()?? 08/16/2022 17:36 Calcium 8.9 mg/dL ()?? 08/16/2022 17:36 AST (SGOT) 30 units/L ()?? 08/16/2022 17:36 ALT (SGPT) 24 units/L ()?? 08/16/2022 17:36 Bilirubin, Total 0.6 mg/dL ()?? 08/16/2022 17:36 Lactate 1.3 mmol/L ()?? 08/16/2022 17:36 ? HEME OTHER Hold Blue Top SPECIMEN DISCARDED AFTER 4 HOURS. ()?? 08/16/2022 17:36 ? MISC. CHEMISTRY Hold Green Top SPECIMEN DISCARDED AFTER 1 WEEK ()?? 08/16/2022 17:36 ? TOXICOLOGY/TDM Ethanol, Serum or Plasma NONE DETECTED mg/dL ()?? 08/16/2022 17:36 Valproic Level 63.4 mg/L ()?? 08/16/2022 17:36 Levetiracetam Level 31.70 mg/L ()?? 08/16/2022 17:36 ? URINE OTHER Est Creatinine Clearance 122.87 mL/min ()?? 08/17/2022 05:24 ? VIROLOGY COVID-19 by RT-PCR NEGATIVE ()?? 08/16/2022 20:35 ? _35 minutes spent on discharge * Sadaf Duff RN: PERFORM Event Display: Patient Education/Instruction Authored Date: [id number] Inpatient Adult Discharge Instructions [address] [address] Name: RAND WILKERSON : 1980 Visit: 08/16/2022 17:02:00 Current Date: 08/17/2022 13:36 Account: [id number] Inpatient Adult Discharge Instructions We would like [...] and their families. Surveys are administered by [email or web address] ?? If further treatment with your primary care physician or another doctor is recommended, it is important for you to keep the appointment. Call your primary care physician or return to the Emergency Department immediately if your condition worsens, fails to improve, or new symptoms develop. If you need to find a doctor, you can call [facility] for a referral at [phone] or toll free at [phone]) or log in to [email or web address].. ?? You can view and manage your care through the patient portal or by using a health care parvin of your choosing. [employer] is a website that allows you to securely view your medical information including your hospital discharge summary, office visit summaries, medications and follow-up visits. You can also request appointments, renew medications, and request access to your medical information using a health care parvin of your choosing, or just ask a question. You can enroll at [email or web address] or register during your next office visit. You have been discharged from [facility], Patient Care Unit: D3B. If you have any questions regarding these instructions after you leave, please call us and we will be happy to assist you. [facility] Your Care Team Attending Physician Marbella Fox MD Discharging Providers Marbella Fox MD Reason for Admission 3 witnessed seizures (about a minute each) within 30 mins prior to arrival. pt hx notable for epilepsy. Your Diagnosis Breakthrough seizure Tests Performed Below is a partial list of the tests performed during your hospitalization. You may have had other tests and procedures not included in this list. Please discuss all test results with your provider. Alcohol Level ALT AST Basic Metabolic Panel BILIRUBIN,TOTAL COVID-19 (Novel Coronavirus), Rapid PCR GLUCOSE POC HOLD BLUE TUBE HOLD GREEN TUBE Lactate Level Levetiracetam Level VALPROIC Primary Care Provider Name Matthieu AVILA Advance Directive Health Care Proxy on File Yes - Health Care Proxy Yes - MOLST Discharge Vitals Temperature: 97.6 DegF Height: 186 cm Pulse Rate:??50 bpm??Low Weight: 107.5 kg Respiratory Rate: 17 br/min Body Mass Index:??31.07 kg/m2??Critical Systolic Blood Pressure: 119 mm Hg Body surface area: 2.36 Diastolic Blood Pressure: 68 mm Hg ?? Oxygen Saturation: 97 % ?? Studies Pending All tests and labs ordered during this hospital stay have been completed unless listed below. Please discuss all pending results with your provider listed above in these instructions. ?? Add On Lab Order (Lab Add On Order) BUN Creatinine Electrolytes Lamotrigine Level (LAMOTRIGINE) Magnesium Level What to do next Instructions From Your Doctor Please continue taking seizure medication as?? you were taking before this admission. ??Follow up with your Neurologist . Do not drive for 6 months. Discharge Orders You Need to Schedule the Following Appointments Follow Up with??Breanna Ballard MD Why: pl call to schedule?? follow up Follow Up with??Name Matthieu AVILA When:??Within 1 to 2 weeks Where: ?? Discharge Medications RAND WILKERSON :1980 Visit Date:08/16/2022 Medications: Please continue your medications until treatment is completed or stopped by your provider. Medications not listed below should be discontinued. Discuss any questions related to medications with your provider. What How Much When Instructions Next Dose Unchanged Albuterol/ Ipratropium (Combivent Respimat 20 mcg-100 mcg/ inh inhalation aerosol) 1 puff(s) Inhalation 4 times a day as instructd Unchanged Clonazepam (clonazePAM 0.5 mg oral tablet) 1 tab(s) Oral Daily in the morning 8am Unchanged Clonazepam (clonazePAM 1 mg oral tablet) 1 tab(s) Oral Daily at Bedtime While in hosp ?? bedtime Unchanged Divalproex Sodium (divalproex sodium 500 mg oral tablet, extended release) 2 tab(s) Oral Daily 8am Unchanged Folic Acid (folic acid 1 mg oral tablet) 1 tab(s) Oral Daily 8am Unchanged Ibuprofen (Motrin Tablet) 600 Milligram Oral 3 times a day with meals daily with meals Unchanged Lamotrigine (lamotrigine 150 mg oral tablet) 2 tablets Oral Twice a day 8pm Unchanged levETIRAcetam (levETIRAcetam 1000 mg oral tablet) 2 tab(s) Oral Twice a day 8pm Unchanged Melatonin (melatonin 5 mg oral tablet) 1 tab(s) Oral Daily at Bedtime bedtime Unchanged Polyethylene Glycol 3350 (MiraLax oral powder for reconstitution) 17 gram Oral Daily 8am Unchanged Sertraline (sertraline 50 mg oral tablet) 1 tab(s) Oral Daily 8am Unchanged Thiamine (Vitamin B1 100 mg oral tablet) 1 tab(s) Oral Daily 8am ?? What How Much When Comments Stop Taking Naproxen (naproxen 500 mg oral tablet) 1 tab(s) Oral Twice a day as needed for Pain , Mild Test Results Below is a partial list of the most recent Laboratory test results done prior to this discharge. You may have had other tests and procedures not included in this list. Please discuss all test resultswith your provider. Est Creatinine Clearance - 122.87 mL/min (08/17/2022) Alcohol Level (08/16/2022) ???Ethanol, Serum or Plasma - NONE DETECTED ALT (08/16/2022) ???ALT (SGPT) - 24 units/L AST (08/16/2022) ???AST (SGOT) - 30 units/L Basic Metabolic Panel (08/16/2022) ???Sodium - 140 mmol/L???Potassium - 4.2 mmol/L???Chloride - 104 mmol/L???Bicarbonate Level - 24 mmol/L???Anion Gap - 12???Glucose Level - 95 mg/dL???BUN - 19 mg/dL???Creatinine-Blood - 0.9 mg/dL???Estimated GFR Creatinine - 110 ML/MIN/1.73 M2???Calcium - 8.9 mg/dL BILIRUBIN,TOTAL (08/16/2022) ???Bilirubin, Total - 0.6 mg/dL COVID-19 (Novel Coronavirus), Rapid PCR (08/16/2022) ???COVID-19 by RT-PCR - NEGATIVE GLUCOSE POC (08/16/2022) ???Glucose, POC - 79 mg/dL HOLD BLUE TUBE (08/16/2022) ???Hold Blue Top - SPECIMEN DISCARDED AFTER 4 HOURS. HOLD GREEN TUBE (08/16/2022) ???Hold Green Top - SPECIMEN DISCARDED AFTER 1 WEEK Lactate Level (08/16/2022) ???Lactate - 1.3 mmol/L Levetiracetam Level (08/16/2022) ???Levetiracetam Level - 31.70 mg/L VALPROIC (08/16/2022) ???Valproic Level - 63.4 mg/L Allergies (NKA means No Known Allergies) erythromycin??(rash) Problems Active Problems??(5) COPD without exacerbation?? COVID?? Obese class I?? Obesity?? Polysubstance abuse?? Education Materials Below is the list of Educational Leaflet Providered with your Discharge Instructions. Living Well with Epilepsy?? Discharge Instructions for Epilepsy?? Valuables and Belongings I fully understand and agree that [facility] accepts no responsibility for all my personal [...] patient Date for Pt to Sign Valuables/Belongings: 08/17/22 05:25:00 ?? Other Discharge Information ? Pulmonary Rehab Status?? Pulmonary Rehab Discharge Status?? Respiratory Rate: 17 br/min ? Common Emergency Awareness Tips IS [...] are strongly encouraged to quit. Please call [facility] Link at [phone] or 9-800-746-[facility] ([phone]) or log in to [email or web address] for referrals to smoking cessation programs. ?? 668 Suicide & Crisis Lifeline is available 28/09 if you or someone you know needs to find a reason to keep living. By calling 321 you'll be connected to a skilled, trained counselor at a crisis center in your area. INPATIENT DISCHARGE INSTRUCTIONS SIGNATURE PAGE RAND WILKERSON Location:[facility] Registration Date and Time:08/16/2022 17:02 EDT Primary Care Physician: Matthieu Buenrostro MD, Attending Physician: Marbella Fox MD, I STJEAN, RAND, have received the above patient education materials/instructions and have verbalized understanding. If ambulance or transport services are being used I further acknowledge being given a choice of service. ?? If you need to contact me, please call me at this number: . Patient/Shank Piece Tacker Name: Patient/Shank Piece Tacker Signature: Relationship to Patient: Witness Name/Signature: Date: * Sadaf Duff RN: PERFORM Event Display: Patient Education Leaflets Authored Date: [id number] Living Well with Epilepsy ?? 38301 Living Well with Epilepsy People with epilepsy??can lead healthy, productive lives. Life with epilepsy can be challenging, but there are things you can do to make it easier.??For example, you can pay attention to your emotions. If you feel down, upset, or scared, talk with your healthcare provider. And be open with the people in your life. Talking about epilepsy can help them understand. It can also help you feel better. Coping with emotions You may be scared to go out in public for fear of having a seizure.??Or you may just get frustratedwith having epilepsy. Such feelings are normal. But they can lead to anxiety and depression. Treatment is available for these conditions, so talk with your healthcare provider. Discuss what can help you, such as the following: ??? Support groups. These groups let you talk with other people who haveepilepsy. ??? Counseling. Talking with a counselor can help you learn to cope with your emotions and health problems. ??? Medicine. This can help if you have a mood disorder. ?? Depression Depression is an illness that affects your thoughts and feelings. It can be caused by trouble coping with epilepsy, and sometimes it may be caused by the medicines used to treat it. Depression can beserious. If you have any of the following, call your healthcare provider: ??? Feeling down most of the time ??? Feeling hopeless or helpless ??? Losing pleasure in things you used to enjoy ??? Sleeping less or more than normal ??? Having a big change in appetite or weight ??? Having trouble focusing, remembering, or making decisions ??? Staying away from friends or family? Coping at home Epilepsy affects those around you, too. Talk with your loved ones and learn their concerns. For instance, your children may be afraid for your safety. Reassure them that you can live a long, healthy life with epilepsy. Your partner may wonder if a normal sex life is possible. Let them know that epilepsy doesn???t have to affect your love life. If loved ones have questions, you can always arrange a talk with your healthcare provider. Think about wearing a medical alert bracelet. This can provide other people information about your epilepsy if there is a medical emergency. ?? Epilepsy and your job Epilepsy doesn???t have to keep you from working. In fact, people with epilepsy hold many kinds of jobs. But there are some issues you should consider, such as: ??? What kind of work can I do? ??Thisdepends on several things, such as how well controlled your seizures are. Also think about whether the job involves tasks that may not be safe for you. These include driving or operating heavy machinery. ??? Should I tell my boss or coworkers about my epilepsy? ??This is your personal choice. But you may be safer if people at your workplace are prepared to respond to a seizure. If you are concerned about losing your job, know your rights. The Americans with Disabilities Act provides work-related protections for people with epilepsy. ?? Last Reviewed Date: 2021 ?? [employer]. All rights reserved. This information is not intended as a substitute for professional medical care. Always follow your healthcare professional's instructions. ?? * Sadaf Duff RN: PERFORM Event Display: Patient Education Leaflets Authored Date: [id number] Discharge Instructions for Epilepsy ?? 53104 Discharge Instructions for Epilepsy You have been diagnosed with epilepsy, a disorder of recurring seizures. When you have a seizure,??an electrical disturbance??happens in your brain. There are different kinds of seizures, and each person may have one or many types of seizures. Here are some guidelines for you and your family. If you have a seizure Ask friends and family members to learn how to manage a seizure. Also tell them??to do the following if you have a seizure: ??? Clear the area to prevent injury. ??? Position you on a flat, carpeted surface, if possible. ??? Don???t try to restrain you. ??? Don???t put anything in your mouth. ??? Turn you onto your side if you start to vomit. ??? Keep track of the date and time the seizure started, how long it lasted, if you lost consciousness, a description of your body movements, what provoked the seizure (if known), and any injuries you suffered. Using a watch may help keep correct time of events.? Stay with you until you regain consciousness. ??? Call 911 if the seizure is longer than 5 minutes, if there are multiple seizures, or if you don't start to wake up after the seizure stops.? You'll will probably be confused and drowsy after the seizure. Rest until you feel recovered enoughto continue your pre-seizure activity. ?? Activities Following??are some things to consider: ??? Enjoy your normal activities. Most people with epilepsylead normal lives. ??? Don't do hazardous activities, such as mountain climbing or scuba diving. A seizure under these conditions could lead to a fatal accident. ??? Many other activities can be verydangerous if you were to have a seizure. If you are on a ladder or roof or operating heavy equipment or sharp tools, you could be seriously injured. Talk with your healthcare provider about any activities you are unsure of. ??? Don't swim alone or take part in other similar activities without others nearby. ??? Ask your healthcare provider about any restrictions on driving or other activities. ??? Check with your state department of public safety to learn whether there are any driving limits based on your condition. Each state has different laws on driving after seizures. ?? Other home care Other considerations: ??? Take your??medicine exactly as directed. Skipping doses can affect the way your body handles the medicine, which could cause you to have a seizure. ??? Don???t drink alcoholor use any??medicine without talking with your??provider??first. ??? Make sure all of your healthcare providers have a list of all your medicines.??Seizure medicines may interact with other medicines. ??? Ask your provider what to do if you take control pills. They may not work as well when taking seizure medicines. ? Think about how to keep small children safe if you are caring for them when you have a a seizure. ??? Wear a medical alert pendant or bracelet that alerts others to your condition. The ID should include any medicine allergies ??? Join a local support group. Ask your??provider??for names and phone numbers. ??? Talk with your provider if you are trying to become . Some medicines for treating epilepsy and seizures can cause defects when taken during . Folic acid may reduce the risk for some of these defects. Ask your provider if you should take folic acid or take other precautions. ?? Call 911 Tell your family members or friends to call 911 right away if you have: ??? Seizure that lasts morethan 5??minutes ??? Multiple seizures in a row ??? Not regained consciousness after the seizure stops ?? When to call your healthcare provider You or your family members or friends should call your??provider??right away if you have: ??? Seizures that are getting longer and worse ??? Seizures that are different from those you???ve had in thepast ??? Questions about missed medicines or medicine interactions ??? Seizures strong enough to cause injury ??? Medicine side effects ??? Skin rash ??? Fever of 100.4??F (38??C) or higher, or as directed by your provider ??? Symptoms get worse or you have new symptoms ?? Last Reviewed Date: 2020 ?? 3604-1503 [employer]. All rights reserved. This information is not intended as a substitute for professional medical care. Always follow your healthcare professional's instructions. ?? Patient Care team information Care Team Personnel Name: Gus Mcgraw RN Position: [facility] RN Member Role: Primary Care Nurse Name: Patience Mcpherson RN Position: [facility] RN Member Role: Primary Care Nurse Name: Kavita Romo RN Position: S RN Member Role: Primary Care Nurse Name: Isadora Rice RN Position: [facility] RN Member Role: Primary Care Nurse Name: Thelma Johnson RN Position: [facility] RN Member Role: Primary Care Nurse Name: Melanie Sainz RN Position: [facility] RN Member Role: Primary Care Nurse Name: Matthieu Buenrostro MD Position: [facility] Outreach Member Role: PCP Address: Address: [address] [place] [address] Name: See Chavez RN Position: [facility] RN Member Role: Primary Care Nurse Name: Myke Mcfadden RN Position: [facility] RN Member Role: Primary Care Nurse Name: Monika Marquez RN Position: [facility] RN Member Role: Primary Care Nurse Name: Elaine Reis RN Position: [facility] RN Member Role: Primary Care Nurse Name: Veronika Dinero LPN Position: [facility] RN Member Role: Primary Care Nurse Name: Luis FELIZ Attending Position: [facility] ED Medicine MD Name: Austen Matias Position: [facility] ED [facility] Member Role: Patient Care Provider Name: Sonya Hernandez RN Position: [facility] ED RN W/OE and Tasks Member Role: Patient Care Provider Care Team Related Persons Name: JEANNE GIRON Address: [place] [address]
--- OUTSIDE RECORDS SUMMARY | 2023-11-03 19:01 | XMS_ITS | Continuity of Care Document ---
Author Organization [facility] Address [address] [place] [id number]- Care Team Providers Care Side Piece Coverer Name Role Phone Name Matthieu AVILA Primary Care Physician Encounter [facility] [place] Date(s): 04/09/22 - 04/09/[address] [address]- Encounter Diagnosis Abscess(Final) - 04/09/22 Discharge Disposition: A-D/C Home Attending Physician: Josiane Alvarez MD Admitting Physician: Josiane Alvarez MD Referring Physician: Not on Staff, Referring MD Allergies, Adverse Reactions, Alerts Substance Reaction Severity Status erythromycin rash Active Medications clindamycin 300 mg oral capsule 1 capsule = 300 mg, By Mouth, Every 6 hours, for 5 days, # 20 capsule, 0 Refills, Acute 04/14/22 18:15:00 EST, 04/09/22 18:15:00 EST, Capsule, [id number], Partial fill upon patient request ifthe prescription is for a schedule II opioid drug.,... Start Date: 04/09/22 Stop Date: 04/14/22 Status: Ordered clonazePAM 0.5 mg oral tablet 1 tablet [...] 3 Refills, Maintenance, 12/03/21 8:46:00 EDT, ERTablet, [facility], Partial fill upon patient request if the prescription is for a schedule II opioid drug., 185.2, cm, 09/12/21 7:08:00... Start Date: 12/03/21 Status: Ordered folic acid 1 mg oral tablet 1 mg, 1, tablet, By Mouth, Daily, # 30 tablet, Refills 0, Tot. Refills 0, Maintenance, 03/31/21 12:38:00 EST, Route to Pharmacy Electronically, [facility], Partial fill upon patient request [...] Exam Date Time Procedure Performing Provider Status 04/09/22 12:50 PM US Extremity Non-Vas cular Right Limited Diane Olivia; Auth (Verified) Notes: (US Extremity Non-Vascular Right Limited) Reason For Exam: Abscess RESULT: US Extremity Non-Vascular Right Limited US Extremity Non-Vascular Right Limited Hx of Present Illness: wound to right lower leg x 1 month with some whitish drainage, reportedly decreasing in size -; Reason: Abscess; Clinical Question(s): Other:; abscess COMPARISON: Right lower extremity venous duplex ultrasound examination of the same date. FINDINGS: High-resolution, linear array imaging of the superficial soft tissues of the right calf was performed in the area of the patient's wound and drainage.. Along the lateral aspect of the upper midportion of the calf, there is a complex hypoechoic space occupying structure measuring 2.0 x 1.7 x 0.6 cm with appearance suggestive of a cavity containing complex fluid and debris. No vascular flow is present within this cavity, which demonstrates a hypoechoic tract extending to the skin surface. There is substantial edema in adjacent soft tissue. The skin is thickened at the site of interest. No other mass, fluid collection, or other sonographic abnormality is present. IMPRESSION: 2.0 x 1.7 x 0.6 cm complex fluid collection in the lateral aspect of the upper midportion of the right calf consistent with either hematoma or abscess. A thin tract extends from this collection to the skin surface with associated skin thickening. Substantial edema in soft tissue surrounding the cavity. WSN: [id number] Ordering Physician: Gulshan Marquez Dictated By: Fazal Cao MD Dictated Date/Time: 04/09/22 1:16 pm Reviewed By: Fazal Cao MD Signed By: Fazal Cao MD Signed Date/Time: 04/09/22 1:16 pm Transcribed By: JOJO Transcribed Date/Time: 04/09/22 1:12 pm * Exam Date Time Procedure Performing Provider Status 04/09/22 12:50 PM US Doppler Ext Lower Venous Right Diane Glasgow; Dayana (Verified) Notes: (US Doppler Ext Lower Venous Right) Reason For Exam: Pain in limb;Other: RESULT: US Doppler Ext Lower Venous Right US Doppler Ext Lower Venous Right Hx of Present Illness: wound to right lower leg x 1 month with drainage -; Reason: Other:; Pain in limb; Clinical Question(s): Thrombus COMPARISON: None IMAGING TECHNIQUE: Ultrasound of the veins from the groin through the calf was performed using grayscale, color, and spectral Doppler ultrasound assessing for complete compressibility and normal flowcharacteristics. FINDINGS: Common femoral vein: Patent. No thrombosis. Femoral vein: Patent. No thrombosis. Popliteal vein: Patent. No thrombosis. Gastrocnemius veins: The visualized portions are patent without evidence of thrombosis. Peroneal veins: The visualized portions are patent without evidence of thrombosis. Posterior tibial veins: The visualized portions are patent without evidence of thrombosis. Contralateral common femoral vein: Patent. No thrombosis. OTHER FINDINGS: Edema in the calf. Mildly prominent but not pathologically enlarged right inguinal lymph node with normal morphology. IMPRESSION: No evidence of deep venous thrombosis. Edema in the right calf. Please see right lower extremity non-vascular ultrasound study of the same date for further information. WSN: [id number] Ordering Physician: Gulshan Marquez Dictated By: Fazal Cao MD Dictated Date/Time: 04/09/22 1:00 pm Reviewed By: Fazal Cao MD Signed By: Fazal Cao MD Signed Date/Time: 04/09/22 1:00 pm Transcribed By: JOJO Transcribed Date/Time: 04/09/22 12:58 pm Vital Signs Most recent to oldest [Reference Range]: 1 2 3 Height 183 cm (04/09/22 2:41 PM) 183 cm (04/09/22 10:51 AM) Weight 103.7 kg (04/09/22 2:41 PM) 103.7 kg (04/09/22 10:51 AM) Oxygen Saturation [94-100 %] 99 % (04/09/22 6:15 PM) 100 % (04/09/22 5:00 PM) 100 % (04/09/22 2:41 PM) Pulse Rate [55-90 bpm] 64 bpm (04/09/22 6:15 PM) 60 bpm (04/09/22 5:00 PM) 60 bpm (04/09/22 2:41 PM) Body Mass Index [18.5-24.99 kg/m2] 30.97 kg/m2 *>HHI* (04/09/22 2:41 PM) 30.97 kg/m2 *>HHI* (04/09/22 10:51 AM) Blood Pressure [90-138/55-84 mm Hg] 155/93mm Hg *H* (04/09/22 6:15 PM) 132/72mm Hg (04/09/22 5:00 PM) 131/85mm Hg (04/09/22 2:41 PM) Respiratory Rate [16-30 br/min] 18 br/min (04/09/22 6:15 PM) 19 br/min (04/09/22 5:00 PM) 19 br/min (04/09/22 2:41 PM) Temperature [96.8-100.4 DegF] 97.6 DegF (04/09/22 2:41 PM) 97.8 DegF (04/09/22 1:51 PM) 98.1 DegF (04/09/22 10:51 AM) Mode of Delivery (Oxygen) Room air (04/09/22 6:15 PM) Room air (04/09/22 5:00 PM) Room air (04/09/22 2:41 PM) Blood pressure sites Arm, left (04/09/22 6:15 PM) Arm, left (04/09/22 5:00 PM) Arm, left (04/09/22 2:41 PM) Temperature Route Oral (04/09/22 2:41 PM) Oral (04/09/22 1:51 PM) Oral (04/09/22 10:51 AM) Dry Weight 103.7 kg (04/09/22 2:41 PM) 103.7 kg (04/09/22 10:51 AM) Weight Obtained Via Standing scale (04/09/22 10:51 AM) Dry Weight Obtained Via Standing scale (04/09/22 10:51 AM) EKG study * Event Display: ECG 12-Lead Authored Date: Please click on pdf link to open report * Event Display: ECG 12-Lead Authored Date: Ventricular Rate: 53 BPM Atrial Rate: 53 BPM P-R Interval: 220 ms QRS Duration: 106 ms Q-T Interval: 418 ms QTC Calculation(Bazett): 392 ms P [place]: 45 degrees R [place]: 23 degrees T [place]: 33 degrees Sinus bradycardia with 1st degree A-V block Otherwise normal ECG When compared with ECG of 01-DEC-2021 12:26, MS interval has increased Confirmed by SHELBIE AGOSTO ([id number]) on 04/09/2022 9:36:15 PM [place]: SHELBIE AGOSTO Note * Ursula Westfall DO: PERFORM, SIGN, VERIFY Event Display: Patient Education Handout Authored Date: * Ursula Westfall DO: PERFORM Event Display: Patient Education Leaflets Authored Date: Abscess (Antibiotic Treatment Only) ?? [id number] Abscess (Antibiotic Treatment Only) An abscess happens when bacteria get trapped under the skin and start to grow. Pus forms inside theabscess as the body reacts to the bacteria. An abscess can happen with an insect bite, ingrown hair, blocked oil gland, pimple, cyst, or puncture wound. It is sometimes call a boil. In the early stages, your wound may be red and sore. For this stage, you may get antibiotics. If the abscess doesn't get better with antibiotics, it will need to be drained with a small cut. Home care These tips will help you care for your abscess at home: ??? Soak the wound in hot water or apply hot packs (small towel soaked in hot water) to the area for 20 minutes at a time. Do this 3 to 4 timesa day, or as instructed. Use a new towel each time. Wash the towels afterward because they may be contaminated with bacteria after use. ??? Don't cut, squeeze, or pop the boil yourself. ??? Put antibiotic cream or ointment on the skin 3 to 4 times a day, unless something else was prescribed. Some ointments include an antibiotic plus a pain reliever. ??? If your healthcare provider prescribed antibiotics, don't stop taking them until you have finished the medicine, or you are told to stop. ??? You may use an [id number] pain medicine to control pain, unless another pain medicine was prescribed. Talk with your provider before taking these medicines if you have chronic liver or kidney disease or ever had a stomach ulcer or??digestive bleeding. ?? Follow-up care Follow up with your healthcare provider, or as advised. Check your wound each day for signs that the infection may be getting worse (see below). ?? When to get medical advice Call your healthcare provider right away if any of these occur: ??? An increase in redness or swelling ??? Red streaks in the skin leading away from the abscess ??? An increase in local pain or swelling ??? Fever of 100.4??F (38??C) or higher, or as directed by your provider ??? Pus or fluid comingfrom the abscess ??? Boil returns after getting better ?? Last Reviewed Date: 2021 ?? [id number] [employer]. All rights reserved. This information is not intended as a substitute for professional medical care. Always follow your healthcare professional's instructions. ?? * April CHELA S: Fazal Gibbons MD: VERIFY Event Display: Result: Authored Date: [id number] US Doppler Ext Lower Venous Right Hx of Present Illness: wound to right lower leg x 1 month with drainage -; Reason: Other:; Pain in limb; Clinical Question(s): Thrombus COMPARISON: None IMAGING TECHNIQUE: Ultrasound of the veins from the groin through the calf was performed using grayscale, color, and spectral Doppler ultrasound assessing for complete compressibility and normal flowcharacteristics. FINDINGS: Common femoral vein: Patent. No thrombosis. Femoral vein: Patent. No thrombosis. Popliteal vein: Patent. No thrombosis. Gastrocnemius veins: The visualized portions are patent without evidence of thrombosis. Peroneal veins: The visualized portions are patent without evidence of thrombosis. Posterior tibial veins: The visualized portions are patent without evidence of thrombosis. Contralateral common femoral vein: Patent. No thrombosis. OTHER FINDINGS: Edema in the calf. Mildly prominent but not pathologically enlarged right inguinal lymph node with normal morphology. IMPRESSION: No evidence of deep venous thrombosis. Edema in the right calf. Please see right lower extremity non-vascular ultrasound study of the same date for further information. WSN: [id number] Ordering Physician: Gulshan Marquez Dictated By: Fazal Cao MD Dictated Date/Time: 04/09/22 1:00 pm Reviewed By: Fazal Cao MD Signed By: Fazal Cao MD Signed Date/Time: 04/09/22 1:00 pm Transcribed By: JOJO Transcribed Date/Time: 04/09/22 12:58 pm * April , CIS S: Fazal Gibbons MD: VERIFY Event Display: Result: Authored Date: [id number] US Extremity Non-Vascular Right Limited Hx of Present Illness: wound to right lower leg x 1 month with some whitish drainage, reportedly decreasing in size -; Reason: Abscess; Clinical Question(s): Other:; abscess COMPARISON: Right lower extremity venous duplex ultrasound examination of the same date. FINDINGS: High-resolution, linear array imaging of the superficial soft tissues of the right calf was performed in the area of the patient's wound and drainage.. Along the lateral aspect of the upper midportion of the calf, there is a complex hypoechoic space occupying structure measuring 2.0 x 1.7 x 0.6 cm with appearance suggestive of a cavity containing complex fluid and debris. No vascular flow is present within this cavity, which demonstrates a hypoechoic tract extending to the skin surface. There is substantial edema in adjacent soft tissue. The skin is thickened at the site of interest. No other mass, fluid collection, or other sonographic abnormality is present. IMPRESSION: 2.0 x 1.7 x 0.6 cm complex fluid collection in the lateral aspect of the upper midportion of the right calf consistent with either hematoma or abscess. A thin tract extends from this collection to the skin surface with associated skin thickening. Substantial edema in soft tissue surrounding the cavity. WSN: [id number] Ordering Physician: Gulshan Marquez Dictated By: Fazal Cao MD Dictated Date/Time: 04/09/22 1:16 pm Reviewed By: Fazal Cao MD Signed By: Fazal Cao MD Signed Date/Time: 04/09/22 1:16 pm Transcribed By: JOJO Transcribed Date/Time: 04/09/22 1:12 pm Patient Care team information Care Team Personnel Name: Gus Mcgraw RN Position: [facility] RN Member Role: Primary Care Nurse Name: Patience Mcpherson RN Position: [facility] RN Member Role: Primary Care Nurse Name: Kavita Romo RN Position: [facility] RN Member Role: Primary Care Nurse Name: Ciarra Perez Position: [facility] RN Member Role: Primary Care Nurse Name: Melanie Sainz RN Position: [facility] RN Member Role: Primary Care Nurse Name: Matthieu Buenrostro MD Position: [facility] Outreach Member Role: PCP Address: Address: [address] [place] [id number]- Name: See Chavez RN Position: [facility] RN Member Role: Primary Care Nurse Name: Myke Mcfadden RN Position: [facility] RN Member Role: Primary Care Nurse Name: Elaine Reis RN Position: [facility] RN Member Role: Primary Care Nurse Name: Ursula Westfall DO Position: [facility] Resident Member Role: ED Resident Address: Address: [address] [place] [address] [place] [address]- [place] Name: Josiane Alvarez MD Position: [facility] ED Medicine MD Member Role: Admitting Physician Address: Address: [address] [place] [id number]- [place] Name: Emeterio Lyle Jr Position: [facility] ED TA [facility] Member Role: Truckload Owner Operator Name: Natasha Valenzuela RN Position: [facility] ED RN W/OE and Tasks Member Role: Patient Care Provider Care Team Related Persons Name: JEANNE GIRON Address: home [address] [place] [id number]
--- OUTSIDE RECORDS SUMMARY | 2023-11-03 19:01 | XMS_ITS | Continuity of Care Document ---
Author Organization [employer] [facility] [employer] Address [address] [place] [address]- Care Team Providers Care Occupational Health Technician Name Role Phone Name Matthieu AVILA Primary Care Physician Encounter [facility] [place] Date(s): 04/23/23 - 04/23/[address] [address]- Encounter Diagnosis Epilepsy(Final) - 04/23/23 Discharge Disposition: A-D/C Home Attending Physician: Dio Ramirez MD Admitting Physician: Dio Ramirez MD Referring Physician: Not on Staff, Referring [...] 3 Refills, Maintenance, 12/03/21 8:46:00 EDT, ERTablet, [facility], Partial fill upon patient request if the prescription is for a schedule II opioid drug., 185.2, cm, 09/12/21 7:08:00... Start Date: 12/03/21 Status: Ordered folic acid 1 mg oral tablet 1 mg, 1, tablet, By Mouth, Daily, # 30 tablet, Refills 0, Tot. Refills 0, Maintenance, 03/31/21 12:38:00 EST, Route to Pharmacy Electronically, [facility], Partial fill upon patient request if [...] Exam Date Time Procedure Performing Provider Status 04/23/23 1:36 PM Chest 2 Views Frontal and Lat Zora Espinal; Auth (Verified) Notes: (Chest 2 Views Frontal and Lat) Reason For Exam: Traumatic Chest Pain;Other: RESULT: Chest 2 Views Frontal and Lat Chest 2 Views Frontal and Lat Hx of Present Illness: seizure at home. see jp level level one sheet for further documentation; Reason: Other:; Traumatic Chest Pain; Clinical Question(s): Other:; Pneumothorax, Fracture; Order Comment: RN unavailable, in resus. - OS 2 2023 12:24:18 EST COMPARISON: Multiple prior chest radiographs with the most recent dated 07/28/2021. FINDINGS: LINES AND TUBES: None. LUNGS AND PLEURA: Low lung volumes with mild bibasilar atelectasis. Otherwise the lungs are clear.. Normal pulmonary vascularity. No pleural effusion. No pneumothorax. HEART, MEDIASTINUM AND VELMA: Heart is normal in size. Normal mediastinal and hilar contour. BONES AND SOFT TISSUES: No acute abnormality. IMPRESSION: Low lung volumes with mild bibasilar atelectasis. No focal infiltrates or CHF seen. WSN: [id number] Ordering Physician: Pratik Diaz Dictated By: Ramsey Weber MD, V Dictated Date/Time: 04/23/23 1:51 pm Reviewed By: Ramsey Weber MD, V Signed By: Ramsey Weber MD, V Signed Date/Time: 04/23/23 1:51 pm Transcribed By: JOJO Transcribed Date/Time: 04/23/23 1:49 pm * Exam Date Time Procedure Performing Provider Status 04/23/23 11:[address] Cervical Spine W/O Contrast Natasha Puente; Dayana (Verified) Notes: (CT Cervical Spine W/O Contrast) Reason For Exam: Fall in shower during seizure, head/neck pain;Other: RESULT: CT Cervical Spine W/O Contrast CT Head/Brain W/O Contrast, CT Cervical Spine W/O Contrast INDICATION: Hx of Present Illness: seizure at home. see jp level level one sheet for further documentation; Reason: Other:; Fall with seizure, head strike; Clinical Question(s): Hematoma; Order Comment: TECHNIQUE: Noncontrast head CT using axial technique was reconstructed in axial and coronal planes.Noncontrast spiral CT through the cervical spine was formatted in 3 planes. Automatic tube modulation was used for the cervical spine and iterative dose reconstruction was used for both the head and cervical spine to optimize scan parameters and image quality. CTDIvol Body: 16.40 mGy, DLP Body: 423 mGy*cm. CTDIvol Head: 39.60 mGy, DLP Head: 672 mGy*cm. COMPARISON: 07/28/2021 FINDINGS: Onshore Diver View Findings, Lines and Tubes: None. BRAIN AND EXTRA-AXIAL SPACES: No parenchymal hemorrhage, midline shift, or mass effect. Luke-white matter differentiation is wellpreserved. No acute infarct. Ventricles, sulci, and basilar cisterns are normal. No white matter lesions. No subarachnoid hemorrhage. No subdural or epidural collection. CALVARIUM, SKULL BASE, AND SOFT TISSUES: No fractures or suspicious bony lesions. The paranasal sinuses and mastoid air cells are clear. Visualized orbits and globes are intact. The extracranial soft tissues are unremarkable. CERVICAL SPINE: No fracture. No acute osseous abnormalities. Normal alignment. No locked or perched facet. Intervertebral disc spaces and vertebral body heightsare preserved. OTHER BONES: No acute abnormality. CERVICAL SOFT TISSUES AND LUNG APICES: Normal soft tissues. Visualized lung apices are clear. IMPRESSION: No acute abnormality of the head or cervical spine. WSN: [id number] Ordering Physician: Pratik Diaz Dictated By: Maurisio AVILA, Gabrielasuperiorbernice Dictated Date/Time: 04/23/23 11:39 a Reviewed By: Bindu Forde MD Signed By: Bindu Forde MD Signed Date/Time: 04/23/23 11:39 am Transcribed By: JOJO Transcribed Date/Time: 04/23/23 11:30 am * Exam Date Time Procedure Performing Provider Status 04/23/23 11:[address] Head/Brain W/O Contrast Peg Puente; Auth (Verified) Notes: (CT Head/Brain W/O Contrast) Reason For Exam: Fall with seizure, head strike;Other: RESULT: CT Head/Brain W/O Contrast CT Head/Brain W/O Contrast, CT Cervical Spine W/O Contrast INDICATION: Hx of Present Illness: seizure at home. see jp level level one sheet for further documentation; Reason: Other:; Fall with seizure, head strike; Clinical Question(s): Hematoma; Order Comment: TECHNIQUE: Noncontrast head CT using axial technique was reconstructed in axial and coronal planes.Noncontrast spiral CT through the cervical spine was formatted in 3 planes. Automatic tube modulation was used for the cervical spine and iterative dose reconstruction was used for both the head and cervical spine to optimize scan parameters and image quality. CTDIvol Body: 16.40 mGy, DLP Body: 423 mGy*cm. CTDIvol Head: 39.60 mGy, DLP Head: 672 mGy*cm. COMPARISON: 07/28/2021 FINDINGS: Onshore Diver View Findings, Lines and Tubes: None. BRAIN AND EXTRA-AXIAL SPACES: No parenchymal hemorrhage, midline shift, or mass effect. Luke-white matter differentiation is wellpreserved. No acute infarct. Ventricles, sulci, and basilar cisterns are normal. No white matter lesions. No subarachnoid hemorrhage. No subdural or epidural collection. CALVARIUM, SKULL BASE, AND SOFT TISSUES: No fractures or suspicious bony lesions. The paranasal sinuses and mastoid air cells are clear. Visualized orbits and globes are intact. The extracranial soft tissues are unremarkable. CERVICAL SPINE: No fracture. No acute osseous abnormalities. Normal alignment. No locked or perched facet. Intervertebral disc spaces and vertebral body heightsare preserved. OTHER BONES: No acute abnormality. CERVICAL SOFT TISSUES AND LUNG APICES: Normal soft tissues. Visualized lung apices are clear. IMPRESSION: No acute abnormality of the head or cervical spine. WSN: [id number] Ordering Physician: Pratik Diaz Dictated By: Bindu Forde MD Dictated Date/Time: 04/23/23 11:39 a Reviewed By: Bindu Forde MD Signed By: Bindu Forde MD Signed Date/Time: 04/23/23 11:39 am Transcribed By: JOJO Transcribed Date/Time: 04/23/23 11:30 am Vital Signs Most recent to oldest [Reference Range]: 1 2 3 Height 183 cm (04/23/23 8:29 PM) 183 cm (04/23/23 4:52 PM) 183 cm (04/23/23 9:07 AM) Oxygen Saturation [94-100 %] 98 % (04/23/23 4:52 PM) 98 % (04/23/23 10:14 AM) 98 % (04/23/23 9:07 AM) Pulse Rate [55-90 bpm] 52 bpm *L* (04/23/23 4:52 PM) 46 bpm *L* (04/23/23 10:14 AM) 53 bpm *L* (04/23/23 9:07 AM) Blood Pressure [90-138/55-84 mm Hg] 121/61mm Hg (04/23/23 4:52 PM) 107/64mm Hg (04/23/23 10:14 AM) 129/65mm Hg (04/23/23 9:07 AM) Respiratory Rate [16-30 br/min] 19 br/min (04/23/23 4:52 PM) 13 br/min *L* (04/23/23 10:14 AM) 14 br/min *L* (04/23/23 9:07 AM) Temperature [96.8-100.4 DegF] 98.2 DegF (04/23/23 4:52 PM) 97.5 DegF (04/23/23 10:14 AM) 97.8 DegF (04/23/23 9:07 AM) Mode of Delivery (Oxygen) Room air (04/23/23 4:52 PM) Room air (04/23/23 10:14 AM) Room air (04/23/23 9:07 AM) Blood pressure sites Arm, left (04/23/23 10:14 AM) Arm, left (04/23/23 9:07 AM) Temperature Route Oral (04/23/23 4:52 PM) Oral (04/23/23 10:14 AM) Oral (04/23/23 9:07 AM) Social History Social History Type Response Smoking Status 5-9 cigarettes (betw een 1/4 to 1/2 pack)/day in last 30 days; Interested in cessation: No entered on: 08/17/22 Sex EKG study * Event Display: ECG 12-Lead Authored Date: [id number] Please click on pdf link to open report * Event Display: ECG 12-Lead Authored Date: [id number] Ventricular Rate: 51 BPM Atrial Rate: 51 BPM P-R Interval: 240 ms QRS Duration: 106 ms Q-T Interval: 410 ms QTC Calculation(Bazett): 377 ms P [place]: 47 degrees R [place]: 7 degrees T [place]: 27 degrees Sinus bradycardia with 1st degree A-V block Otherwise normal ECG When compared with ECG of 09-APR-2022 15:00, No significant change was found Confirmed by FABIAN CALABRESE MD ([id number]) on 04/23/2023 9:38:13 AM [place]: FABIAN CALABRESE MD Note * Pratik Diaz MD: PERFORM Event Display: Patient Education Leaflets Authored Date: [id number] Recurrent Seizure (Adult) ?? [id number] Recurrent Seizure (Adult) You have had another [...] gets worse? Last Reviewed Date: 2021 ?? [id number] [employer]. All rights reserved. This information is not intended as a substitute for professional medical care. Always follow your healthcare professional's instructions. ?? Patient Care team information Care Team Personnel Name: Gus Mcgraw RN Position: [facility] RN Member Role: Primary Care Nurse Name: Patience Mcpherson RN Position: [facility] RN Member Role: Primary Care Nurse Name: Kavita Romo RN Position: [facility] RN Member Role: Primary Care Nurse Name: Isadora Rice RN Position: [facility] RN Member Role: Primary Care Nurse Name: Melanie Sainz RN Position: [facility] RN Member Role: Primary Care Nurse Name: Matthieu Buenrostro MD Position: [facility] Outreach Member Role: PCP Address: Address: [address] [place] [address] Name: See Chavez RN Position: [facility] RN Member Role: Primary Care Nurse Name: Myke Mcfadden RN Position: [facility] RN Member Role: Primary Care Nurse Name: Monika Marquez RN Position: S RN Member Role: Primary Care Nurse Name: Elaine Reis RN Position: [facility] RN Member Role: Primary Care Nurse Name: Veronika Dinero LPN Position: [facility] RN Member Role: Primary Care Nurse Care Team Related Persons Name: GIRONJEANNE HERNANDEZ Address: home [address] [place] [address]
--- OUTSIDE RECORDS SUMMARY | 2023-11-03 19:01 | XMS_ITS | Continuity of Care Document ---
Author Organization [facility] Address [address] [place] [id number]- Care Team Providers Care Top Trimmer Name Role Phone Name Matthieu AVILA Primary Care Physician Encounter [facility] [place] Date(s): 07/28/21 - 07/31/[address] [address] Encounter Diagnosis Seizure(Final) - 07/29/21 Epilepsy(Final) - 07/29/21 Discharge Disposition: A-D/C Home Attending Physician: Elyssa Rudolph MD Admitting Physician: Christiano Ge MD Referring Physician: Not on Staff, Referring [...] Start Date: 12/28/20 Status: Ordered divalproex sodium 250 mg oral tablet, extended release 3 tablet = 750 mg, By Mouth, Daily at bedtime, # 90 tablet, 0 Refills, Maintenance, 07/31/21 8:26:00 EDT, ER Tablet, [facility], Partial fill upon patient request if the prescription isfor a schedule II opioid drug., 186, cm, 07/31/21 8... Start Date: 07/31/21 Stop Date: 08/30/21 Status: Ordered folic acid 1 mg oral tablet 1 mg, 1, tablet, By Mouth, Daily, # 30 tablet, Refills 0, Tot. Refills 0, Maintenance, 03/31/21 12:38:00 EST, Route to Pharmacy Electronically, [facility], Partial fill upon patient request if [...] tablet, 0 Refills, Maintenance,10/16/20 10:21:00 EDT, Tablet, [id number], Partial fill upon patient request if the prescription is for a schedule II opioid drug., 177.8, cm,... Start Date: 10/16/20 Status: Ordered Vitamin B1 100 mg oral tablet 100 mg, 1, tablet, TAKE 1 TABLET BY MOUTH EVERY DAY Start Date: 07/29/21 Status: Ordered Problem List Condition Effective Dates Status Health Status Inform ant COPD without exacerbation(Confirmed) Active COVID(Confirmed) Active Obesity(Confirmed) Active Polysubstance abuse(Confirmed) Active Results Radiology Reports * Exam Date Time Procedure Performing Provider Status 07/28/21 8:55 PM Chest 2 Views Frontal and Lat Gan , Altaf; Auth (Verified) Notes: (Chest 2 Views Frontal and Lat) Reason For Exam: Traumatic Chest Pain;Other: RESULT: Chest 2 Views Frontal and Lat Chest 2 Views Frontal and Lat Hx of Present Illness: Pt to ED from home via EMS c o seizure x3 today. +hit to head x1. Pt has known seizure disorder. Pt arrives aox4, RR even and unlabored on RA, neuros grossly intact. Pt c o frontal headache and left rib pain. VSS.; Reason: Other:; Traumatic Chest Pain; Clinical Question(s): Other:; Pneumothorax, Fracture COMPARISON: 12/27/2020 FINDINGS: LINES AND TUBES: None. LUNGS AND PLEURA: Low lung volumes with mild basilar atelectasis. Lungs are otherwise clear with no consolidation. No pleural effusion. No pneumothorax. HEART, MEDIASTINUM AND VELMA: Heart is normal in size. Normal upper mediastinal and hilar contour. BONES AND SOFT TISSUES: No acute abnormality. IMPRESSION: No acute abnormality. WSN: [id number] Ordering Physician: Jayne Harris Dictated By: Harvey Acevedo MD Dictated Date/Time: 07/28/21 9:06 pm Reviewed By: Harvey Acevedo MD Signed By: Harvey Acevedo MD Signed Date/Time: 07/28/21 9:06 pm Transcribed By: JOJO Transcribed Date/Time: 07/28/21 9:05 pm Vital Signs Most recent to oldest [Reference Range]: 1 2 3 Height 186 cm (07/31/21 9:25 AM) 186 cm (07/31/21 8:10 AM) 186 cm (07/30/21 11:40 PM) Weight 102 kg (07/29/21 3:55 PM) 96 kg (07/29/21 8:29 AM) Oxygen Saturation [94-100 %] 99 % (07/31/21 9:25 AM) 100 % (07/31/21 8:10 AM) 98 % (07/30/21 11:40 PM) Pulse Rate [55-90 bpm] 78 bpm (07/31/21 9:25 AM) 65 bpm (07/31/21 8:10 AM) 71 bpm (07/30/21 11:40 PM) Body Mass Index [18.5-24.99] 29.48 *H* (07/29/21 3:55 PM) Blood Pressure [90-138/55-84 mm Hg] 132/70mm Hg (07/31/21 9:25 AM) 129/68mm Hg (07/31/21 8:10 AM) 129/68mm Hg (07/30/21 11:40 PM) Respiratory Rate [16-30 br/min] 20 br/min (07/31/21 9:25 AM) 20 br/min (07/31/21 8:10 AM) 16 br/min (07/30/21 11:40 PM) Temperature [96.8-100.4 DegF] 97.8 DegF (07/31/21 9:25 AM) 97.5 DegF (07/31/21 8:10 AM) 98.6 DegF (07/30/21 11:40 PM) Mode of Delivery (Oxygen) Room air (07/31/21 9:25 AM) Room air (07/31/21 8:10 AM) Room air (07/30/21 3:10 PM) Blood pressure sites Arm, left (07/31/21 8:10 AM) Arm, left (07/30/21 3:10 PM) Arm, right (07/30/21 11:49 AM) Temperature Route Oral (07/31/21 9:25 AM) Axillary (07/31/21 8:10 AM) Temporal (07/30/21 3:10 PM) Dry Weight 102 kg (07/29/21 3:55 PM) Weight Obtained Via Patient/family stated (07/29/21 8:29 AM)
--- OUTSIDE RECORDS SUMMARY | 2023-11-03 19:01 | XMS_ITS | Continuity of Care Document ---
Author Organization [facility] Address [address] [place] [id number]- Care Team Providers Care Director Of Analytics Name Role Phone Name Matthieu AVILA Primary Care Physician [place] [facility] [place] 01/[place]/[address] [id number] Encounter Diagnosis Breakthrough seizure(Final) - 01/29/21 Discharge Disposition: A-D/C Home Attending Physician: Cintia Arizmendi MD Admitting Physician: Jeremy Barrera MD Referring Physician: Not on Staff, Referring MD Allergies, Adverse Reactions, Alerts Substance Reaction Severity Status erythromycin Active Medications Acetaminophen Tablet 650 mg, Tablet, By Mouth, Every 4 hours, PRN for Pain , Mild, Temperature Greater than 100.5, Routine, 01/28/21 21:23:00 EST Start Date: 01/28/21 Stop Date: 01/31/21 Status: Discontinued clonazePAM 0.5 mg oral tablet 1 tablet = 0.5 mg, By Mouth, Daily, # 30 tablet, 0 Refills, Maintenance, 01/31/21 8:52:00 EST, Tablet, [facility], Partial fill upon patient request if the prescription is for a schedule II opioid drug., 177.8, cm, 10/16/20 7:53:00 EDT,... Start Date: 01/31/21 Status: Ordered Combivent Respimat 20 mcg-100 mcg/inh inhalation aerosol 1 puffs, Inhalation, 4 times a day, # 4 Gm, 0 Refills, Maintenance, 12/28/20 9:07:00 EDT, Aerosol, Partial fill upon patient request if the prescription is for a schedule II opioid drug. Start Date: 12/28/20 Status: Ordered ibuprofen 200 mg oral tablet [...] opioid drug. Start Date: 01/29/21 Status: Ordered Mag-Ox Tablet = 400 mg, By Mouth, 2 times a day, 0 Refills, Maintenance, 10/11/20 23:28:00 EDT, Tablet, Partial fill upon patient request if the prescription is for a schedule II opioid drug. Start Date: 10/11/20 Status: Ordered melatonin 5 mg oral tablet 1 tablet = 5 mg, By Mouth, Daily at bedtime, PRN for insomnia, # 60 tablet, 0 Refills, Maintenance,10/16/20 10:21:00 EDT, Tablet, [facility]acy #[id number], Partial fill upon patient request if the prescription is for a schedule II opioid drug., 177.8, cm,... Start Date: 10/16/20 Status: Ordered phenytoin 200 mg oral capsule, extended release 1 capsule = 200 mg, By Mouth, 2 times a day, # 60 capsule, 0 Refills, Maintenance, 10/16/20 10:43:00 EDT, ER Capsule, [id number], Partial fill upon patient request if the prescription is for a schedule II opioid drug., 177.8, cm, 10/16/20 7:53... Start Date: 10/16/20 Status: Ordered Vital Signs Most recent to oldest [Reference Range]: 1 2 3 Weight 98.8 kg (01/29/21 12:25 AM) Oxygen Saturation [94-100 %] 99 % (01/31/21 8:35 AM) 97 % (01/31/21 4:16 AM) 97 % (01/31/21 12:15 AM) Pulse Rate [55-90 bpm] 59 bpm (01/31/21 8:35 AM) 56 bpm (01/31/21 4:16 AM) 56 bpm (01/31/21 12:15 AM) Blood Pressure [90-138/55-84 mm Hg] 117/64mm Hg (01/31/21 8:35 AM) 116/68mm Hg (01/31/21 4:16 AM) 100/51mm Hg (01/31/21 12:15 AM) Respiratory Rate [16-30 br/min] 16 br/min (01/31/21 10:44 AM) 16 br/min (01/31/21 8:35 AM) 18 br/min (01/31/21 4:16 AM) Temperature [96.8-100.4 DegF] 97.4 DegF (01/31/21 8:35 AM) 97.0 DegF (01/31/21 4:16 AM) 97.0 DegF (01/31/21 12:15 AM) Liters per Minute 0 L/min (01/31/21 8:35 AM) 2 L/min (01/30/21 5:01 AM) 2 L/min (01/29/21 8:40 PM) Mode of Delivery (Oxygen) Room air (01/31/21 8:35 AM) Room air (01/31/21 4:16 AM) Room air (01/31/21 12:15 AM) Blood pressure sites Arm, right (01/31/21 8:35 AM) Arm, right (01/31/21 4:16 AM) Arm, right (01/31/21 12:15 AM) Temperature Route Temporal (01/31/21 8:35 AM) Temporal (01/31/21 4:16 AM) Temporal (01/31/21 12:15 AM)
--- OUTSIDE RECORDS SUMMARY | 2023-11-03 19:01 | XMS_ITS | Continuity of Care Document ---
Author Organization [facility] Address [address] [place] [id number]- Care Team Providers Care Eeg Technologist Name Role Phone Name Matthieu AVILA Primary Care Physician [phone] Encounter [facility] [place] [id number] Date(s): 11/24/21 - 11/24/[address] [address]- Discharge Disposition: A-D/C Walkout Attending Physician: Not on Staff, Attending MD Admitting Physician: Not on Staff, Admitting MD Referring Physician: Not on Staff, Referring MD Allergies, Adverse Reactions, Alerts Substance Reaction Severity Status erythromycin rash Active Medications chlorhexidine topical 0.12% liquid 15 mL = 0.018 Gm, Swish and Spit, 3 times a day after meals and bedtime, # 420 mL, 0 Refills, Maintenance, 09/12/21 10:38:00 EDT, Oral Rinse, Partial fill upon patient request if the prescription is for a schedule II opioid drug. Start Date: 09/12/21 Stop Date: 09/19/21 Status: Ordered clonazePAM 0.5 mg oral tablet [...] Refills, Maintenance, 07/31/21 8:26:00 EDT, ER Tablet, [facility], Partial fill upon patient request if the prescription isfor a schedule II opioid drug., 186, cm, 07/31/21 8... Start Date: 07/31/21 Stop Date: 08/30/21 Status: Ordered folic acid 1 mg oral tablet 1 mg, 1, tablet, By Mouth, Daily, # 30 tablet, Refills 0, Tot. Refills 0, Maintenance, 03/31/21 12:38:00 EST, Route to Pharmacy Electronically, [facility], Partial fill upon patient request [...] opioid drug. Start Date: 01/29/21 Status: Ordered magnesium oxide 400 mg oral tablet 1 tablet = 400 mg, By Mouth, 2 times a day, 0 Refills, Maintenance, 09/11/21 13:39:00 EDT, Partial fill upon patient request if the prescription is for a schedule II opioid drug. Start Date: 09/11/21 Status: Ordered melatonin 5 mg oral tablet 1 tablet = 5 mg, By Mouth, Daily at bedtime, PRN for insomnia, # 60 tablet, 0 Refills, Maintenance,10/16/20 10:21:00 EDT, Tablet, [facility]/pharmacy #[id number], Partial fill upon patient request if the prescription is for a schedule II opioid drug., 177.8, cm,... Start Date: 10/16/20 Status: Ordered sertraline 50 mg oral tablet [...] COVID(Confirmed) Active Obesity(Confirmed) Active Polysubstance abuse(Confirmed) Active Vital Signs Most recent to oldest [Reference Range]: 1 2 3 Oxygen Saturation [94-100 %] 100 % (11/24/21 6:29 PM) 97 % (11/24/21 4:35 PM) 98 % (11/24/21 4:19 PM) Pulse Rate [55-90 bpm] 71 bpm (11/24/21 6:29 PM) 91 bpm *H* (11/24/21 4:35 PM) 91 bpm *H* (11/24/21 4:19 PM) Blood Pressure [90-138/55-84 mm Hg] 113/76mm Hg (11/24/21 6:29 PM) 120/69mm Hg (11/24/21 4:35 PM) Respiratory Rate [16-30 br/min] 18 br/min (11/24/21 4:35 PM) Temperature [96.8-100.4 DegF] 100.0 DegF (11/24/21 6:29 PM) 100.2 DegF (11/24/21 4:35 PM) Mode of Delivery (Oxygen) Room air (11/24/21 6:29 PM) Room air (11/24/21 4:35 PM) Room air (11/24/21 4:19 PM) Blood pressure sites Arm, right (11/24/21 6:29 PM) Arm, right (11/24/21 4:35 PM) Temperature Route Oral (11/24/21 6:29 PM) Oral (11/24/21 4:35 PM) Care Team Personnel Name: Name Matthieu AVILA Address: [address] [place] [id number]
--- OUTSIDE RECORDS SUMMARY | 2023-11-03 19:01 | XMS_ITS | Continuity of Care Document ---
Author Organization [facility] Address [address] [place] [phone]- Care Team Providers Care Insurance Billing Specialist Name Role Phone Name Matthieu AVILA Primary Care Physician Encounter [facility] [place] Date(s): 03/29/21 - 03/31/[address] [address] Encounter Diagnosis COVID-19(Final) - 03/29/21 Breakthrough seizures.(Final) - 03/29/21 Seizure(Final) - 03/31/21 Discharge Disposition: A-D/C Home Attending Physician: Martinez Castillo MD Admitting Physician: Monika Garza MD Referring Physician: Not on Staff, Referring MD Allergies, Adverse Reactions, Alerts Substance Reaction Severity Status erythromycin Active Medications clonazePAM 0.5 mg oral tablet 1 tablet = 0.5 mg, By Mouth, Daily in AM, # 30 tablet, 0 Refills, Maintenance, 03/31/21 13:02:00 EST, Tablet, [facility], Partial fill upon patient request if the prescription is for a schedule II opioid drug., 183, cm, 03/29/21 22:44:00... Start Date: 03/31/21 Status: Ordered clonazePAM 1 mg oral tablet 1 tablet = 1 mg, By Mouth, Daily at bedtime, While in hosp, # 30 tablet, 0 Refills, Maintenance, 03/31/21 13:01:00 EST, Tablet, [facility], Partial fill upon patient request if the prescription is for a schedule II opioid drug., 183, cm,... Start Date: 03/31/21 Status: Ordered Combivent Respimat 20 mcg-100 mcg/inh [...] Mouth, Daily, # 30 tablet, Refills 0, Maintenance, 03/31/21 12:37:00 EST, Partial fill upon patient request if the prescription is for a schedule II opioid drug. Start Date: 03/31/21 Status: Ordered folic acid 1 mg oral tablet 1 mg, 1, tablet, By Mouth, Daily, # 30 tablet, Refills 0, Tot. Refills 0, Maintenance, 03/31/21 12:38:00 EST, Route to Pharmacy Electronically, [facility], Partial fill upon patient [...] tablet, 0 Refills, Maintenance,10/16/20 10:21:00 EDT, Tablet, [facility] #[id number], Partial fill upon patient request if the prescription is for a schedule II opioid drug., 177.8, cm,... Start Date: 10/16/20 Status: Ordered MiraLax oral powder for reconstitution = 17 Gm, By Mouth, Daily, # 255 Gm, 0 Refills, Acute 05/01/21 12:39:00 EST, 03/31/21 12:39:00 EST, [facility], Partial fill upon patient request if the prescription is for a schedule IIopioid drug., 17 Gm By Mouth Daily, 183, cm, ... Start Date: 03/31/21 Stop Date: 05/01/21 Status: Ordered phenytoin 200 mg oral capsule, extended release 1 capsule = 200 mg, By Mouth, 2 times a day, # 60 capsule, 0 Refills, Maintenance, 10/16/20 10:43:00 EDT, ER Capsule, [facility] #[id number], Partial fill upon patient request if the prescription is for a schedule II opioid drug., 177.8, cm, 10/16/20 7:53... Start Date: 10/16/20 Status: Ordered thiamine 100 mg oral tablet 100 mg, 1, tablet, By Mouth, Daily, for 30 days, # 30 tablet, Refills 0, Tot. Refills 0, Acute 04/30/21 13:07:00 EST, 03/31/21 13:07:00 EST, Route to Pharmacy Electronically, [facility], Partial fill upon patient request if the prescript... Start Date: 03/31/21 Stop Date: 04/30/21 Status: Ordered Problem List Condition Effective Dates Status Health Status Inform ant COVID(Confirmed) Active Results Radiology Reports * Exam Date Time Procedure Performing Provider Status 03/30/21 4:02 PM Chest Portable Patito Orourke; Auth (Verified) Notes: (Chest Portable) Reason For Exam: COVID-19;Other: RESULT: Chest Portable Chest Portable Reason: Other:; COVID-19; Clinical Question(s): Other:; (?) Viral pneumonitis COMPARISON: 12/27/2020 FINDINGS: LINES AND TUBES: None. LUNGS AND PLEURA: Clear lungs. Normal pulmonary vascularity. No pleural effusion. No pneumothorax. HEART, MEDIASTINUM AND VELMA: Heart is normal in size. Normal upper mediastinal and hilar contour. BONES AND SOFT TISSUES: No acute abnormality. IMPRESSION: No acute abnormality. WSN: [id number] Ordering Physician: Bashir Brunner Dictated By: Martinez Franks MD Dictated Date/Time: 03/30/21 4:23 pm Reviewed By: Martinez Franks MD Signed By: Martinez Franks MD Signed Date/Time: 03/30/21 4:23 pm Transcribed By: JOJO Transcribed Date/Time: 03/30/21 4:22 pm Vital Signs Most recent to oldest [Reference Range]: 1 2 3 Height 183 cm (03/31/21 1:06 PM) 183 cm (03/29/21 10:44 PM) 183 cm (03/29/21 6:49 PM) Weight 81 kg (03/29/21 10:44 PM) 82 kg (03/29/21 6:49 PM) 82 kg (03/29/21 3:48 PM) Oxygen Saturation [94-100 %] 98 % (03/31/21 1:06 PM) 97 % (03/31/21 8:00 AM) 96 % (03/31/21 4:00 AM) Pulse Rate [55-90 bpm] 65 bpm (03/31/21 3:57 PM) 65 bpm (03/31/21 1:06 PM) 58 bpm (03/31/21 8:00 AM) Body Mass Index [18.5-24.99] 24.19 (03/29/21 10:44 PM) 24.49 (03/29/21 6:49 PM) 24.49 (03/29/21 3:48 PM) Blood Pressure [90-138/55-84 mm Hg] 139/76mm Hg *H* (03/31/21 3:57 PM) 139/76mm Hg *H* (03/31/21 1:06 PM) 129/77mm Hg (03/31/21 8:00 AM) Respiratory Rate [16-30 br/min] 18 br/min (03/31/21 3:57 PM) 18 br/min (03/31/21 1:06 PM) 18 br/min (03/31/21 8:00 AM) Temperature [96.8-100.4 DegF] 99.2 DegF (03/31/21 1:06 PM) 98.4 DegF (03/31/21 8:00 AM) 98.2 DegF (03/31/21 4:00 AM) Liters per Minute 2 L/min (03/29/21 10:14 PM) 2 L/min (03/29/21 1:45 PM) 2 L/min (03/29/21 1:42 PM) Mode of Delivery (Oxygen) Room air (03/31/21 1:06 PM) Room air (03/31/21 8:00 AM) Room air (03/30/21 4:00 PM) Blood pressure sites Arm, right (03/31/21 1:06 PM) Arm, right (03/30/21 2:00 AM) Arm, right (03/30/21 12:00 AM) Temperature Route Oral (03/31/21 1:06 PM) Axillary (03/31/21 8:00 AM) Axillary (03/31/21 4:00 AM) Dry Weight 81 kg (03/29/21 10:44 PM) 82 kg (03/29/21 6:49 PM) 82 kg (03/29/21 3:48 PM) Weight Obtained Via Patient/family stated (03/29/21 10:44 PM) Patient/family stated (03/29/21 12:21 PM) Dry Weight Obtained Via Patient/family stated (03/29/21 10:44 PM) Patient/family stated (03/29/21 12:21 PM)
--- OUTSIDE RECORDS SUMMARY | 2023-11-03 19:01 | XMS_ITS | Continuity of Care Document ---
Author Organization [facility] ter Address [address] [place] [phone]- Care Team Providers Care Continuing Education Dean Name Role Phone Name Matthieu AVILA Primary Care Physician [place] [facility] [place] 12/29/[address] [address]- Discharge Disposition: A-D/C Home Attending Physician: Kaci Andre MD Admitting Physician: Alvin Rolon MD Referring Physician: Not on Staff, Referring MD Allergies, Adverse Reactions, Alerts Substance Reaction Severity Status erythromycin Active Medications Acetaminophen Tablet 650 mg, Tablet, By Mouth, Every 4 hours, PRN for Pain , Mild, Temperature Greater than 100.5, Routine, 12/27/20 18:10:00 EDT Start Date: 12/27/20 Stop Date: 12/30/20 Status: Discontinued Combivent Respimat 20 mcg-100 mcg/inh inhalation aerosol 1 puffs, Inhalation, 4 times a day, # 4 Gm, 0 Refills, Maintenance, 12/28/20 9:07:00 EDT, Aerosol, Partial fill upon patient request if the prescription is for a schedule II opioid drug. Start Date: 12/28/20 Status: Ordered ibuprofen 600 mg oral tablet 600 mg, 1, tablet, By Mouth, Daily in AM, Refills 0, Maintenance, 12/28/20 9:09:00 EDT, Partial fill upon patient request if the prescription is for a schedule II opioid drug. Start Date: 12/28/20 Status: Ordered ibuprofen 800 mg oral tablet 800 mg, 1, tablet, By Mouth, Daily at bedtime, Refills 0, Maintenance, 12/28/20 9:09:00 EDT, Partial fill upon patient request if the prescription is for a schedule II opioid drug. Start Date: 12/28/20 Status: Ordered Keppra 500 mg oral tablet 4 tablet = 2,000 mg, By Mouth, 2 times a day, # 240 tablet, 0 Refills, Maintenance, 10/16/20 10:43:00 EDT, Tablet, [id number], Partial fill upon patient request if the prescription is for a schedule II opioid drug., 177.8, cm, 10/16/20 7:53:00... Start Date: 10/16/20 Status: Ordered lamotrigine 100 mg oral tablet 300 mg, 3, tablet, By Mouth, 2 times a day before breakfast and dinne, # 180 tablet, Refills 0, Tot. Refills 0, Maintenance, 10/16/20 10:43:00 EDT, Route to Pharmacy Electronically, [id number], Partial fill upon patient request if the prescrip... Start Date: 10/16/20 Status: Ordered Mag-Ox Tablet = 400 mg, [...] tablet, 0 Refills, Maintenance,10/16/20 10:21:00 EDT, Tablet, [id number], Partial fill upon patient [...] 10/16/20 7:53... Start Date: 10/16/20 Status: Ordered Results Radiology Reports * Exam Date Time Procedure Performing Provider Status 12/27/20 10:06 PM Shoulder Min 2 Views Right Nargis Kerr; Dayana (Verified) Notes: (Shoulder Min 2 Views Right) Reason For Exam: Pain RESULT: Shoulder Min 2 Views Right Shoulder Min 2 Views Right, 2 views Reason: Pain; Clinical Question(s): Fracture COMPARISON: 10/14/2020 FINDINGS: The previously seen acute fracture of the humeral greater tuberosity is still visualized without significant healing. No dislocation. IMPRESSION: Reidentified comminuted but mildly displaced fracture of the greater tuberosity without significanthealing. An acute on subacute fracture is not excluded. WSN: [id number] Ordering Physician: Ata Avalos Dictated By: Nicolás Grey MD Dictated Date/Time: 12/27/20 10:14 p Reviewed By: Nicolás Grey MD Signed By: Nicolás Grey MD Signed Date/Time: 12/27/20 10:14 pm Transcribed By: JOJO Transcribed Date/Time: 12/27/20 10:11 pm * Exam Date Time Procedure Performing Provider Status 12/27/20 10:06 PM Chest 2 Views Frontal and Lat Hensle y , Nargis; Auth (Verified) Notes: (Chest 2 Views Frontal and Lat) Reason For Exam: Shortness of Breath, Fever;Other: RESULT: Chest 2 Views Frontal and Lat Chest 2 Views Frontal and Lat INDICATION: Seizure. COMPARISON: 11/16/2020. FINDINGS: LINES AND TUBES: None. LUNGS AND PLEURA: Clear lungs. Normal pulmonary vascularity. No pleural effusion. No pneumothorax. HEART, MEDIASTINUM AND VELMA: Heart is normal in size. Normal upper mediastinal and hilar contour. BONES AND SOFT TISSUES: Widening of the left acromioclavicular joint without clavicle elevation. Calcific densities overlying right humerus. Please refer to dedicated right shoulder radiograph performed the same day for additional findings. Mild degenerative changes of the spine. Minimal wedge morphology of the lower thoracic spine vertebral body. IMPRESSION: No acute pulmonary pathology. Widening of the left acromioclavicular joint, may reflect Type I injury. Please refer to dedicated right shoulder radiograph performed the same day for additional findings. I have personally reviewed the images and I agree with this report. WSN: [id number] Ordering Physician: Ata Avalos Dictated By: Cherie Perez MD Dictated Date/Time: 12/27/20 10:16 p Reviewed By: Nicolás Grey MD Signed By: Nicolás Grey MD Signed Date/Time: 12/27/20 10:21 pm Transcribed By: JOJO Transcribed Date/Time: 12/27/20 10:13 pm Vital Signs Most recent to oldest [Reference Range]: 1 2 3 Oxygen Saturation [94-100 %] 99 % (12/29/20 5:25 PM) 96 % (12/29/20 3:02 PM) 95 % (12/29/20 7:57 AM) Pulse Rate [55-90 bpm] 89 bpm (12/29/20 5:25 PM) 68 bpm (12/29/20 3:02 PM) 67 bpm (12/29/20 7:57 AM) Blood Pressure [90-138/55-84 mm Hg] 126/75mm Hg (12/29/20 5:25 PM) 124/75mm Hg (12/29/20 3:02 PM) 120/78mm Hg (12/29/20 7:57 AM) Respiratory Rate [16-30 br/min] 18 br/min (12/29/20 5:25 PM) 18 br/min (12/29/20 3:02 PM) 18 br/min (12/29/20 8:59 AM) Temperature [96.8-100.4 DegF] 98.0 DegF (12/29/20 3:02 PM) 98 DegF (12/29/20 7:57 AM) 98.4 DegF (12/28/20 8:05 PM) Liters per Minute 2 L/min (12/27/20 4:36 PM) Mode of Delivery (Oxygen) Room air (12/29/20 5:25 PM) Room air (12/29/20 3:02 PM) Room air (12/29/20 7:57 AM) Blood pressure sites Arm, left (12/29/20 5:25 PM) Arm, left (12/29/20 3:02 PM) Arm, left (12/29/20 7:57 AM) Temperature Route Oral (12/29/20 3:02 PM) Oral (12/29/20 7:57 AM) Oral (12/28/20 8:05 PM)
--- OUTSIDE RECORDS SUMMARY | 2023-11-03 19:01 | XMS_ITS | Continuity of Care Document ---
Author Organization [facility] ter Address [address] [place] [phone]- Care Team Providers Care Building Maintenance Mechanic Name Role Phone Name Matthieu AVILA Primary Care Physician [phone] Encounter [facility] [place] ACCT R [id number] Date(s): 04/22/21 - 04/24/[address] [address] Discharge Disposition: A-D/C Home Attending Physician: Jolie Curtis MD Admitting Physician: Jeremy Barrera MD Referring [...] 03/31/21 12:38:00 EST, Route to Pharmacy Electronically, [facility], Partial fill upon patient request if [...] Gm, 0 Refills, Maintenance, 04/24/21 9:31:00 EST, [id number], Partial fill upon patient request if the prescription is for a schedule II opioid drug., 17 Gm ByMouth Daily, 101.81, cm, 04/24/21 8:52:00 EST, Heig... Start Date: 04/24/21 Status: Ordered phenytoin 200 mg oral capsule, extended release 1 capsule = 200 mg, By Mouth, 2 times a day, # 60 capsule, 0 Refills, Maintenance, 10/16/20 10:43:00 EDT, ER Capsule, [facility] #[id number], Partial fill upon patient request if the prescription is for a schedule II opioid drug., 177.8, cm, 10/16/20 7:53... Start Date: 10/16/20 Status: Ordered thiamine 100 mg oral tablet 100 mg, 1, tablet, By Mouth, Daily, for 30 days, # 30 tablet, Refills 0, Tot. Refills 0, Acute 04/30/21 13:07:00 EST, 03/31/21 13:07:00 EST, Route to Pharmacy Electronically, [facility], Partial fill upon patient request if the prescript... Start Date: 03/31/21 Stop Date: 04/30/21 Status: Ordered Problem List Condition Effective Dates Status Health Status Inform ant COPD without exacerbation(Confirmed) Active COVID(Confirmed) Active Obesity(Confirmed) Active Polysubstance abuse(Confirmed) Active Vital Signs Most recent to oldest [Reference Range]: 1 2 3 Height 101.81 cm (04/24/21 8:52 AM) 101.81 cm (04/24/21 4:03 AM) 101.81 cm (04/24/21 12:25 AM) Weight 22 kg (04/23/21 12:59 PM) Oxygen Saturation [94-100 %] 98 % (04/24/21 8:52 AM) 97 % (04/24/21 4:03 AM) 96 % (04/24/21 12:25 AM) Pulse Rate [55-90 bpm] 58 bpm (04/24/21 8:52 AM) 51 bpm *L* (04/24/21 4:03 AM) 79 bpm (04/24/21 12:25 AM) Body Mass Index [18.5-24.99] 21.22 (04/23/21 12:59 PM) Blood Pressure [90-138/55-84 mm Hg] 121/70mm Hg (04/24/21 8:52 AM) 103/60mm Hg (04/24/21 4:03 AM) 111/66mm Hg (04/24/21 12:25 AM) Respiratory Rate [16-30 br/min] 18 br/min (04/24/21 8:52 AM) 16 br/min (04/24/21 4:03 AM) 20 br/min (04/24/21 12:25 AM) Temperature [96.8-100.4 DegF] 97.6 DegF (04/24/21 8:52 AM) 97.5 DegF (04/24/21 4:03 AM) 98.5 DegF (04/24/21 12:25 AM) Mode of Delivery (Oxygen) Room air (04/24/21 8:52 AM) Room air (04/24/21 4:03 AM) Room air (04/24/21 12:25 AM) Blood pressure sites Arm, left (04/24/21 8:52 AM) Arm, right (04/24/21 4:03 AM) Arm, left (04/24/21 12:25 AM) Temperature Route Oral (04/24/21 8:52 AM) Oral (04/24/21 4:03 AM) Oral (04/24/21 12:25 AM) Dry Weight 99.54 kg (04/23/21 12:59 PM) Dry Weight Obtained Via Patient/family s tated (04/23/21 12:59 PM)
--- OUTSIDE RECORDS SUMMARY | 2023-11-03 19:01 | XMS_ITS | Continuity of Care Document ---
Author Organization [facility] Address [address] [place] [id number]- Care Team Providers Care Contracting Executive Name Role Phone Name Matthieu AVILA Primary Care Physician [place] [facility] [id number] Date(s): 09/12/21 - 09/12/[address] [address] Discharge Disposition: A-D/C Home Attending Physician: Fazal Crawford DDS, MD Admitting Physician: Fazal Crawford DDS, MD Referring Physician: Fazal Crawford DDS, MD Allergies, Adverse Reactions, Alerts Substance Reaction Severity Status erythromycin rash Active Medications acetaminophen-oxyCODONE 325 mg-5 mg oral tablet 1, tablet, By Mouth, Every 6 hours, PRN, for 4 days, # 24 tablet, Refills 0, Tot. Refills 0, Acute,Pain , Moderate, 09/16/21 10:37:00 EDT, 09/12/21 10:37:00 EDT, Print Requisition, Tablet, Partial fill upon patient request if the prescription is for... Start Date: 09/12/21 Stop Date: 09/16/21 Status: Ordered chlorhexidine topical 0.12% liquid 15 mL = 0.018 Gm, Swish and Spit, 3 times a day after meals and bedtime, # 420 mL, 0 Refills, Maintenance, 09/12/21 10:38:00 EDT, Oral Rinse, Partial fill upon patient request if the prescription is for a schedule II opioid drug. Start Date: 09/12/21 Stop Date: 09/19/21 Status: Ordered clindamycin 300 mg oral capsule 1 capsule = 300 mg, By Mouth, Every 6 hours, for 5 days, # 20 capsule, 0 Refills, Acute 09/17/21 10:37:00 EDT, 09/12/21 10:37:00 EDT, Capsule, Partial fill upon patient request if the prescription isfor a schedule II opioid drug. Start Date: 09/12/21 Stop Date: 09/17/21 Status: Ordered clonazePAM 0.5 mg oral tablet 1 tablet = 0.5 mg, By Mouth, Daily in AM, # 30 tablet, 0 Refills, Maintenance, 04/24/21 9:30:00 EST, Tablet, [facility]acy #[id number], Partial fill upon patient request if the prescription is for a schedule II opioid drug., 101.81, cm, 04/24/21 8:52:00 EST,... Start Date: 04/24/21 Status: Ordered clonazePAM 1 mg oral tablet 1 tablet = 1 mg, By Mouth, Daily at bedtime, While in hosp, # 30 tablet, 0 Refills, Maintenance, 04/24/21 9:31:00 EST, Tablet, [facility]acy #[id number], Partial fill upon patient request [...] Refills, Maintenance, 07/31/21 8:26:00 EDT, ER Tablet, [facility], Partial fill upon patient request if the prescription isfor a schedule II opioid drug., 186, cm, 07/31/21 8... Start Date: 07/31/21 Stop Date: 08/30/21 Status: Ordered folic acid 1 mg oral tablet 1 mg, 1, tablet, By Mouth, Daily, # 30 tablet, Refills 0, Tot. Refills 0, Maintenance, 03/31/21 12:38:00 EST, Route to Pharmacy Electronically, [facility], Partial fill upon patient request if the prescription is for a schedule II opioid... Start Date: 03/31/21 Status: Ordered ibuprofen 600 mg oral tablet 600 mg, By Mouth, Every 6 hours, PRN, for 3 days, # 12 tablet, Refills 1, Tot. Refills 1, Acute 09/18/21 10:38:00 EDT, Pain , Mild, 09/12/21 10:38:00 EDT, Partial fill upon patient request if the prescription is for a schedule II opioid drug. Start Date: 09/12/21 Stop Date: 09/18/21 Status: Ordered lamotrigine 150 mg oral tablet [...] tablet, 0 Refills, Maintenance,10/16/20 10:21:00 EDT, Tablet, [facility] #[id number], Partial fill upon patient request [...] TABLET BY MOUTH EVERY DAY Start Date: 5/24/22 Status: Ordered Problem List Condition Effective Dates Status Health Status Inform ant COPD without exacerbation(Confirmed) Active COVID(Confirmed) Active Obesity(Confirmed) Active Polysubstance abuse(Confirmed) Active Vital Signs Most recent to oldest [Reference Range]: 1 2 3 Height 185.2 cm (09/12/21 7:08 AM) 185.2 cm (09/11/21 2:10 PM) Weight 89.7 kg (09/12/21 7:08 AM) 102.3 kg (09/11/21 2:10 PM) Oxygen Saturation [94-100 %] 94 % (09/12/21 11:15 AM) 94 % (09/12/21 11:00 AM) 96 % (09/12/21 10:45 AM) Pulse Rate [55-90 bpm] 64 bpm (09/12/21 7:08 AM) Body Mass Index [18.5-24.99] 26.15 *H* (09/12/21 7:08 AM) 29.83 *H* (09/11/21 2:10 PM) Blood Pressure [90-138/55-84 mm Hg] 135/72mm Hg (09/12/21 11:15 AM) 138/72mm Hg (09/12/21 11:00 AM) 139/76mm Hg *H* (09/12/21 10:45 AM) Respiratory Rate [16-30 br/min] 14 br/min *L* (09/12/21 11:15 AM) 14 br/min *L* (09/12/21 11:00 AM) 15 br/min *L* (09/12/21 10:45 AM) Temperature [96.8-100.4 DegF] 97.2 DegF (09/12/21 11:15 AM) 97.8 DegF (09/12/21 10:15 AM) 98.1 DegF (09/12/21 7:08 AM) Liters per Minute 5 L/min (09/12/21 10:30 AM) 5 L/min (09/12/21 10:15 AM) Mode of Delivery (Oxygen) Room air (09/12/21 11:15 AM) Room air (09/12/21 11:00 AM) Room air (09/12/21 10:45 AM) Blood pressure sites Arm, left (09/12/21 10:15 AM) Arm, right (09/12/21 7:08 AM) Temperature Route Temporal (09/12/21 11:15 AM) Temporal (09/12/21 10:15 AM) Temporal (09/12/21 7:08 AM) Dry Weight 89.7 kg (09/12/21 7:08 AM) 102.3 kg (09/11/21 2:10 PM) Weight Obtained Via Standing scale (09/12/21 7:08 AM) Patient/family stated (09/11/21 2:10 PM) Dry Weight Obtained Via Standing scale (09/12/21 7:08 AM) Patient/family stated (09/11/21 2:10 PM)
--- OUTSIDE RECORDS SUMMARY | 2023-11-03 19:01 | XMS_ITS | Continuity of Care Document ---
Author Organization [facility] Address [address], [address], [address] [place] [id number]- Care Team Providers Care Manager Union Name Role Phone Name Matthieu AVILA Primary Care Physician [phone] Encounter [facility] [place] Date(s): 12/18/21 - 01/17/22 [facility] [address], [address], [address] [place] [id number] Attending Physician: Zana Perkins Admitting Physician: Admtr, Zana Referring Physician: Admtr, Ar8 Allergies, Adverse Reactions, Alerts Substance Reaction Severity [...] 3 Refills, Maintenance, 12/03/21 8:46:00 EDT, ERTablet, [facility], Partial fill upon patient request if the prescription is for a schedule II opioid drug., 185.2, cm, 09/12/21 7:08:00... Start Date: 12/03/21 Status: Ordered folic acid 1 mg oral tablet 1 mg, 1, tablet, By Mouth, Daily, # 30 tablet, Refills 0, Tot. Refills 0, Maintenance, 03/31/21 12:38:00 EST, Route to Pharmacy Electronically, [facility], Partial fill upon patient [...] Obesity Confirmed Active Polysubstance abuse Confirmed Active Patient Care team information Care Team Personnel Name: Daniela Sweet RN Position: [facility] RN Member Role: Primary Care Nurse Name: Gus Mcgraw RN Position: [facility] RN Member Role: Primary Care Nurse Name: Patience Mcpherson RN Position: [facility] RN Member Role: Primary Care Nurse Name: Kavita Romo RN Position: [facility] RN Member Role: Primary Care Nurse Name: Ciarra Perez Position: [facility] RN Member Role: Primary Care Nurse Name: Melanie Sainz RN Position: [facility] RN Member Role: Primary Care Nurse Name: Matthieu Buenrostro MD Position: S Outreach Member Role: PCP Address: Address: [address] [place] [address]- Name: See Chavez RN Position: S RN Member Role: Primary Care Nurse Name: Myke Mcfadden RN Position: [facility] RN Member Role: Primary Care Nurse Name: Elaine Reis RN Position: S RN Member Role: Primary Care Nurse Name: Clay Quiñonez RN Position: S RN Member Role: Primary Care Nurse Name: Aniya Bazzi Position: S RN Member Role: Primary Care Nurse Name: Jaylin Morgan RN Position: [facility] RN Supv Member Role: Primary Care Nurse Care Team Related Persons Name: JEANNE GIRON Address: [address] [address]
--- OUTSIDE RECORDS SUMMARY | 2023-11-03 19:01 | XMS_ITS | Continuity of Care Document ---
Author Organization [facility] ter Address [address] [place] [id number]- Care Team Providers Care Manager Regional Sales Name Role Phone Name Matthieu AVILA Primary Care Physician [place] [facility](s): 11/15/20 - 11/18/[address] [id number]- Encounter Diagnosis Seizure(Final) - 11/16/20 Pneumonia(Final) - 11/16/20 Discharge Disposition: A-D/C Home Attending Physician: Mono Givens MD Admitting Physician: Shaan Ahn MD Referring Physician: Not on Staff, Referring MD Allergies, Adverse Reactions, Alerts Substance Reaction Severity Status erythromycin Active Medications escitalopram 20 mg oral tablet 1 tablet = 20 mg, By Mouth, Daily, # 30 tablet, 0 Refills, Maintenance, 10/16/20 10:20:00 EDT, Tablet, [id number], Partial fill upon patient request if the prescription is for a schedule II opioid drug., 177.8, cm, 10/16/20 7:53:00 EDT, Height... Start Date: 10/16/20 Status: Ordered Keppra 500 mg oral tablet [...] 10/16/20 10:43:00 EDT, Route to Pharmacy Electronically, [facility]/pharmacy #[id number], Partial fill upon patient request [...] tablet, 0 Refills, Maintenance,10/16/20 10:21:00 EDT, Tablet, [facility]/pharmacy #[id number], Partial fill upon patient request if the prescription is for a schedule II opioid drug., 177.8, cm,... Start Date: 10/16/20 Status: Ordered nicotine 14 mg/24 hr transdermal film, extended release 1 patch, Topically, Daily, # 30 patch, 0 Refills, Maintenance, 10/11/20 23:40:00 EDT, Patch, Partial fill upon patient request if the prescription is for a schedule II opioid drug. Start Date: 10/11/20 Status: Ordered Nicotine 2 mg gum 1 each = 2 mg, Chew, Every 2 hours, PRN as needed for smoking cessation, # 40 each, 0 Refills, Maintenance, 10/11/20 23:40:00 EDT, Gum, Partial fill upon patient request if the prescription is for a schedule II opioid drug. Start Date: 10/11/20 Status: Ordered nicotine 21 mg/24 hr transdermal film, extended release 1 patch, Topically, Daily, # 30 patch, 0 Refills, Maintenance, 10/16/20 10:21:00 EDT, Patch, [facility]/pharmacy #[id number], Partial fill upon patient request if the prescription is for a schedule II opioid drug., 1 patch Topically Daily, 177.8, cm, 10/16/20 7:53... Start Date: 10/16/20 Status: Ordered phenytoin 200 mg oral capsule, extended release 1 capsule = 200 mg, By Mouth, 2 times a day, # 60 capsule, 0 Refills, Maintenance, 10/16/20 10:43:00 EDT, ER Capsule, [facility]/pharmacy #[id number], Partial fill upon patient request if the prescription is for a schedule II opioid drug., 177.8, cm, 10/16/20 7:53... Start Date: 10/16/20 Status: Ordered Results Radiology Reports * Exam Date Time Procedure Performing Provider Status 11/16/20 4:33 AM Chest Portable Estela Eddy; Dayana (Verified) Notes: (Chest Portable) Reason For Exam: Shortness of Breath RESULT: Chest Portable Chest Portable INDICATION/CLINICAL QUESTION: Recent seizure activity. TECHNIQUE: AP chest at 0422 hours on 1121. COMPARISON: No prior exam. FINDINGS: LINES AND TUBES: Absent. LUNGS AND PLEURA: RIGHT CHEST: The lung is clear and there is no effusion.. LEFT CHEST: The lung is clear and there is no effusion. HEART AND MEDIASTINAL CONTOURS: Normal. BONES AND SOFT TISSUES: No acute abnormality.. IMPRESSION: 1. No active disease in chest. WSN: [id number] Ordering Physician: Dillon Banda Dictated By: Tj Lopez MD Dictated Date/Time: 11/16/20 12:08 p Reviewed By: Tj Lopez MD Signed By: Tj Lopez MD Signed Date/Time: 11/16/20 12:08 pm Transcribed By: JOJO Transcribed Date/Time: 11/16/20 12:08 pm Vital Signs Most recent to oldest [Reference Range]: 1 2 3 Oxygen Saturation [94-100 %] 97 % (11/18/20 8:00 AM) 100 % (11/18/20 5:11 AM) 98 % (11/17/20 11:49 PM) Pulse Rate [55-90 bpm] 82 bpm (11/18/20 8:00 AM) 72 bpm (11/18/20 5:11 AM) 86 bpm (11/17/20 11:49 PM) Blood Pressure [90-138/55-84 mm Hg] 155/85mm Hg *H* (11/18/20 8:00 AM) 140/84mm Hg *H* (11/18/20 5:11 AM) 115/66mm Hg (11/17/20 11:49 PM) Respiratory Rate [16-30 br/min] 18 br/min (11/18/20 8:00 AM) 20 br/min (11/18/20 5:11 AM) 20 br/min (11/17/20 11:49 PM) Temperature [96.8-100.4 DegF] 98.7 DegF (11/18/20 8:00 AM) 97.9 DegF (11/18/20 5:11 AM) 97.4 DegF (11/17/20 11:49 PM) Liters per Minute 2 L/min (11/16/20 6:00 AM) 2 L/min (11/16/20 4:00 AM) Mode of Delivery (Oxygen) Room air (11/18/20 8:00 AM) Room air (11/18/20 5:11 AM) Room air (11/17/20 11:49 PM) Blood pressure sites Arm, left (11/18/20 8:00 AM) Arm, right (11/18/20 5:11 AM) Arm, left (11/17/20 11:49 PM) Temperature Route Oral (11/18/20 8:00 AM) Temporal (11/18/20 5:11 AM) Temporal (11/17/20 11:49 PM)
--- NOTE | 2023-11-03 19:02 | P.HPHOSP_ITS ---
History of Present Illness Date of Service: 11/03/23 Chief Complaint: seizure 43M PMH intractable seizures, copd, etoh dependence, bipolar, ptsd, obesity, admitted to inpatient psychiatry for SI and HI. on 11/03/23 had 3 generalized seizures. patient has been taking 3 AEDs. was seen by neuro, recommended continuing meds and rechecking levels in a few days. at about 1800 patient had another generalized seizure with incontinance of stool, cyanosis, hypoxia, broke with 1mg of ativan. now post ictal. hypoxia resolved. plan to transfer to medical floor for better seizure control and montiroing Review of Systems Review of Systems: Yes all other systems are reviewed and are negative [facility] Medical History COPD (chronic obstructive pulmonary disease) Alcohol dependence Bipolar disorder Intractable epilepsy Social History Household Members: Family Household Members Other:: Brothers, Uncle and a woman renting a room named [place] Housing: House Do you presently have visiting nurse or other home services: No Alcohol intake: current Alcohol intake frequency: holidays/special occasions only Alcohol type: beer and hard liquor Patient Tobacco Use Status: Current everyday Tobacco user Tobacco use type: Cigarette e-Cigarette/Vaping Use: Never Used Second Hand Smoke Exposure: No Advance Directives: No Advance Directives Information Provided: No Advance Directives on File: No service: No Sexual orientation: Straight/Heterosexual Meds Allergies Allergy/AdvReac Type Severity Reaction Status Date / Time erythromycin base Allergy Unknown UNKNOWN Verified 10/26/23 17:11 [Erythromycin Base] cyclobenzaprine AdvReac Intermediate Other Verified 11/03/23 17:43 [From Flexeril] Active Medications: Current Medications Acetaminophen (Acetaminophen 325 Mg Tablet) 650 mg PO Q6H PRN PRN Reason: Pain, Mild (Pain Scale 1-3), fever or headache Calcium Carbonate (Calcium Carbonate 750 Mg Tab.Chew) 750 mg PO Q4H PRN PRN Reason: Heartburn Clonazepam (Clonazepam 1 Mg Tablet) 1 mg PO BID MISSY Divalproex Sodium (Divalproex Sodium 250 Mg Tablet.Dr) 750 mg PO BID MISSY Enoxaparin Sodium (Enoxaparin Sodium 40 Mg/0.4 Ml Syringe) 40 mg SUBCUT Q24H MISSY Lamotrigine (Lamotrigine 100 Mg Tablet) 300 mg PO TID MISSY Levetiracetam (Levetiracetam 1,000 Mg Tablet) 2,000 mg PO BID MISSY Magnesium Hydroxide (Milk Of Magnesia 30 Ml Oral.Susp) 30 ml PO DAILY PRN PRN Reason: Constipation Melatonin (Melatonin 3 Mg Tablet) 6 mg PO BEDTIME PRN PRN Reason: Insomnia Sertraline HCl (Sertraline Hcl 100 Mg Tablet) 100 mg PO DAILY MISSY Sodium Chloride (0.9 % Sodium Chloride Flush 3 Ml Syringe) 3 ml IVFLUSH QSHIFT MISSY Trazodone HCl (Trazodone Hcl 50 Mg Tablet) 50 mg PO BEDTIME PRN PRN Reason: insomnia Physical Exam Vital Signs and Narrative: post ictal, lethargic, tachypneic, accessory muscles just prior was: General: AO X 3, no acute distress Resp: CTA bilateral, no accessory muscles used CVS: S1,S2,RRR GI: soft, non tender, non distended Neuro: motor grossly intact, alert Psych: appropriate affect, appropriate insight Assessment and Plan (1) Bipolar disorder: Status: Acute Plan 43M PMH intractable seizures, copd, etoh dependence, bipolar, ptsd, obesity, admitted to inpatient psychiatry for SI and HI, presented with seizure intractable seizures transfer to [facility], continue lamictal, keppra, depakote ativan prn, seizure precautions, neuro follow up copd stable etoh dependence no signs of withdrawal bipolar with SI and HI continue mood stabilizers 1:1 will need clearance when medically cleared obesity weight loss recommended dvt prophylaxis - lovenox full code patient with breakthrough seizure, will need atleast 2 midnights to get better control Quality Stroke Does the patient have a stroke diagnosis?: No VTE Prior VTE?: No VTE Risk Level:: Medical - moderate - high VTE Device Contraindication: Treatment Not Indicated VTE Drug Contraindication: N/A - Med Ordered
[2023-11-03 19:52] VITALS: BP 121/58; PULSE 70; RESP 16; TEMP 37.3; O2SAT 99
[2023-11-03] MEDS: Enoxaparin Sodium 40 MG/0.4 ML SYRINGE SUBCUT (20:03)
[2023-11-03] MEDS: Divalproex Sodium 250 MG TABLET.DR 750 MG PO (20:04)
[2023-11-03] MEDS: Acetaminophen 325 MG TABLET 650 MG PO (20:04)
[2023-11-03] MEDS: clonazePAM 1 MG TABLET PO (20:04)
[2023-11-03] MEDS: 0.9 % Sodium Chloride Flush 3 ML SYRINGE IVFLUSH (20:05)
[2023-11-03] MEDS: lamoTRIgine 100 MG TABLET 300 MG PO (20:05)
[2023-11-03] MEDS: levETIRAcetam 1,000 MG TABLET 2000 MG PO (20:05)
[2023-11-03 20:16] LABS: Lactic Acid 0.8 mmol/L (0.5-2.0)
[2023-11-03 20:19] LABS: Anion Gap 13 (12-20); Blood Urea Nitrogen 32 mg/dL (9-16); Calcium 9.3 mg/dL (8.4-10.2); Carbon Dioxide 28 mmol/L (22-29); Chloride 104 mmol/L (96-108); Estimated Glomerular Filt Rate > 60; Glucose Random 101 mg/dL (60-115); Potassium 4.5 mmol/L (3.3-5.1); Sodium 140 mmol/L (135-145)
[2023-11-03 20:20] LABS: Hematocrit 36.5 % (42.0-52.0); Hemoglobin 12.3 g/dl (14.0-18.0); Mean Corpuscular HGB Conc 33.7 g/dl (31.0-36.0); Mean Corpuscular Hemoglobin 31.2 pg (27.0-33.0); Mean Corpuscular Volume 92.6 fL (80.0-98.0); Mean Platelet Volume 11.7 fL (9.4-12.4); Platelet Count 145 X10*3/uL (160-400); Red Blood Count 3.94 X10*6/uL (4.60-5.80); White Blood Count 5.3 X10*3/uL (4.8-10.8)
--- NOTE | 2023-11-03 20:55 | PHA.MEDREC ---
Addendum entered by Catina Senior RPh 11/03/23 22:33: Patient was moved from to [facility], med list from was used for this med rec. Addendum entered by Catina Senior RPh 11/03/23 22:17: Med rec was reviewed by [facility]. Original Note: Pharmacy Consult ? Medication Reconciliation Pharmacy has completed the medication reconciliation. Confirmed medications with patient. He states he last took his medication at home on 10/26/23.
[2023-11-03] MEDS: Melatonin 3 MG TABLET 6 MG PO (21:50)
[2023-11-04] VITALS (7 sets, daily range): BP systolic 100–121; BP diastolic 44–61; PULSE 51–63; RESP 18–20; TEMP 36.1–36.8; O2SAT 95–100; BMI 37.3
[2023-11-04] MEDS: lamoTRIgine 100 MG TABLET 300 MG PO ×2 (08:26→20:16)
[2023-11-04] MEDS: Sertraline HCL 100 MG TABLET PO (08:26)
[2023-11-04] MEDS: 0.9 % Sodium Chloride Flush 3 ML SYRINGE IVFLUSH ×3 (08:26→20:19)
[2023-11-04] MEDS: clonazePAM 1 MG TABLET PO ×2 (08:26→20:16)
[2023-11-04] MEDS: Divalproex Sodium 250 MG TABLET.DR 750 MG PO (08:26)
[2023-11-04] MEDS: levETIRAcetam 1,000 MG TABLET 2000 MG PO (08:26)
[2023-11-04] MEDS: Acetaminophen 325 MG TABLET 650 MG PO ×2 (08:29→15:51)
[2023-11-04 09:08] LABS: Alanine Aminotransferase 16 U/L (0-40); Albumin Level 3.6 g/dL (3.5-5.0); Alkaline Phosphatase 40 U/L (39-117); Anion Gap 10 (12-20); Aspartate Amino Transferase 17 U/L (5-37); Bilirubin Direct 0.1 mg/dL (0.0-0.5); Bilirubin Total 0.3 mg/dL (0.0-1.0); Blood Urea Nitrogen 30 mg/dL (9-16); Calcium 9.1 mg/dL (8.4-10.2); Carbon Dioxide 30 mmol/L (22-29); Chloride 104 mmol/L (96-108); Creatinine Clr Calc Pharmacy 153.6; Estimated Glomerular Filt Rate > 60; Glucose Fasting 83 mg/dL (60-99); Magnesium 2.1 mg/dL (1.6-2.6); Potassium 4.4 mmol/L (3.3-5.1); Sodium 140 mmol/L (135-145); Total Protein 6.3 g/dL (6.5-8.0)
[2023-11-04 09:18] LABS: Hematocrit 36.2 % (42.0-52.0); Mean Corpuscular HGB Conc 33.1 g/dl (31.0-36.0); Mean Corpuscular Hemoglobin 30.9 pg (27.0-33.0); Mean Corpuscular Volume 93.3 fL (80.0-98.0); Mean Platelet Volume 11.9 fL (9.4-12.4); Platelet Count 137 X10*3/uL (160-400); Red Blood Count 3.88 X10*6/uL (4.60-5.80); Red Cell Distribution Width 14.2 % (11.0-16.0); White Blood Count 4.5 X10*3/uL (4.8-10.8)
--- NOTE | 2023-11-04 10:28 | P.PNIM_ITS ---
Subjective Subjective Date of Service: 11/04/23 Interval History: no seizure since admission Physical Exam 2 Vital Signs: Vital Signs: Last Vital Signs Temp 97.6 F 11/04/23 08:00 Pulse 51 11/04/23 08:00 Resp 20 11/04/23 08:00 BP 100/61 11/04/23 08:00 Pulse Ox 100 11/04/23 08:00 O2 Del Method Room Air 11/04/23 08:00 O2 Flow Rate 6 11/03/23 19:52 BMI result Body Mass Index 37.3 General: AO X 3, no acute distress Resp: CTA bilateral, no accessory muscles used CVS: S1,S2,RRR GI: soft, non tender, non distended Neuro: motor grossly intact, alert Psych: appropriate affect, appropriate insight Objective Data Active Medications Acetaminophen (Acetaminophen 325 Mg Tablet) 650 mg PO Q6H PRN PRN Reason: Pain, Mild (Pain Scale 1-3), fever or headache Last Admin: 11/04/23 08:29 Dose: 650 mg Documented By: RONNI Calcium Carbonate (Calcium Carbonate 750 Mg Tab.Chew) 750 mg PO Q4H PRN PRN Reason: Heartburn Clonazepam (Clonazepam 1 Mg Tablet) 1 mg PO BID [facility] Last Admin: 11/04/23 08:26 Dose: 1 mg Documented By: RONNI Cyclobenzaprine HCl (Cyclobenzaprine Hcl 10 Mg Tablet) 10 mg PO TID PRN PRN Reason: Muscle Spasm Divalproex Sodium (Divalproex Sodium 250 Mg Tablet.Dr) 750 mg PO BID [facility] Last Admin: 11/04/23 08:26 Dose: 750 mg Documented By: RONNI Enoxaparin Sodium (Enoxaparin Sodium 40 Mg/0.4 Ml Syringe) 40 mg SUBCUT Q24H [facility] Last Admin: 11/03/23 20:03 Dose: 40 mg Documented By: CLAU Hydroxyzine HCl (Hydroxyzine Hcl 25 Mg Tablet) 25 mg PO Q6H PRN PRN Reason: Anxiety Lamotrigine (Lamotrigine 100 Mg Tablet) 300 mg PO TID [facility] Last Admin: 11/04/23 08:26 Dose: 300 mg Documented By: RONNI Levetiracetam (Levetiracetam 1,000 Mg Tablet) 2,000 mg PO BID [facility] Last Admin: 11/04/23 08:26 Dose: 2,000 mg Documented By: RONNI Lorazepam (Lorazepam 2 Mg/Ml Vial) 2 mg IVPUSH Q2H PRN PRN Reason: Seizures Magnesium Hydroxide (Milk Of Magnesia 30 Ml Oral.Susp) 30 ml PO DAILY PRN PRN Reason: Constipation Melatonin (Melatonin 3 Mg Tablet) 6 mg PO BEDTIME PRN PRN Reason: Insomnia Last Admin: 11/03/23 21:50 Dose: 6 mg Documented By: CLAU Olanzapine (Olanzapine 5 Mg Tablet) 5 mg PO BEDTIME MISSY Sertraline HCl (Sertraline Hcl 100 Mg Tablet) 100 mg PO DAILY [facility] Last Admin: 11/04/23 08:26 Dose: 100 mg Documented By: RONNI Sodium Chloride (0.9 % Sodium Chloride Flush 3 Ml Syringe) 3 ml IVFLUSH QSHIFT [facility] Last Admin: 11/04/23 08:26 Dose: 3 ml Documented By: RONNI Trazodone HCl (Trazodone Hcl 50 Mg Tablet) 50 mg PO BEDTIME PRN PRN Reason: insomnia Labs 11/04/23 08:37 11/04/23 08:37 Labs: Laboratory Results - last 24 hr 11/03/23 11/04/23 19:58 08:37 MCV 92.6 93.3 MCH 31.2 30.9 MCHC 33.7 33.1 RDW 14.0 14.2 Plt Count 145 L 137 L MPV 11.7 11.9 Absolute Nucleated RBC 0.000 0.000 Nucleated RBC % (auto) 0.0 0.0 Anion Gap 13 10 L Estim Creat Clear Calc TNP 153.6 Estimated GFR > 60 > 60 Random Glucose 101 Fasting Glucose 83 Lactic Acid 0.8 Calcium 9.3 9.1 Magnesium 2.1 Total Bilirubin 0.3 Direct Bilirubin 0.1 AST 17 ALT 16 Alkaline Phosphatase 40 Total Protein 6.3 L Albumin 3.6 Assessment and Plan (1) Bipolar disorder: Status: Acute Plan 43M PMH intractable seizures, copd, etoh dependence, bipolar, ptsd, obesity, admitted to inpatient psychiatry for SI and HI, presented with seizure intractable seizures continue lamictal, keppra, depakote Loaded with phenytoin overnight Check MRI of the brain ativan prn, seizure precautions, neuro follow up copd stable etoh dependence no signs of withdrawal bipolar with SI and HI continue mood stabilizers 1:1 will need clearance when medically cleared obesity weight loss recommended dvt prophylaxis - lovenox full code reason for continued hospitalization:seizure management Quality Stroke Does the patient have a stroke diagnosis?: No VTE Prior VTE?: No VTE Risk Level:: Medical - moderate - high VTE Device Contraindication: Treatment Not Indicated VTE Drug Contraindication: N/A - Med Ordered
[2023-11-04] MEDS: Phenytoin Sodium Extended 100 MG CAPSULE 200 MG PO ×2 (12:48→20:16)
--- NOTE | 2023-11-04 13:07 | PM.NEUROCN ---
History of Present Illness Data of Consult Service Date: 11/04/23 Primary Care Provider: Unknown Physician HPI Reason for consult: Epilepsy 43 years old man with intractable epilepsy had another seizure overnight and was transferred to medical floor. He was loaded with Dilantin overnight. Review of Systems Review of Systems: No headaches or cold or flu-like illness PMFSH Past Medical History Medical History COPD (chronic obstructive pulmonary disease) Alcohol dependence Bipolar disorder Intractable epilepsy Social History Social History Household Members: Family Household Members Other:: Brothers, Uncle and a woman renting a room named [place] Housing: House Do you presently have visiting nurse or other home services: Yes Alcohol intake: current Alcohol intake frequency: holidays/special occasions only Alcohol type: beer and hard liquor Patient Tobacco Use Status: Former Tobacco user Tobacco use type: Cigarette e-Cigarette/Vaping Use: Never Used Second Hand Smoke Exposure: No Use of substances other than those prescribed or required for medical reasons: No Currently Displaying Signs/Symptoms of Drug Intoxication Withdrawal: No Is there a partner from a previous relationship who is making you feel unsafe now?: No Advance Directives: No Advance Directives Information Provided: No Advance Directives on File: No Do you have a plan to hurt others: No Plan service: No Sexual orientation: Straight/Heterosexual Meds Allergies Allergy/AdvReac Type Severity Reaction Status Date / Time erythromycin base Allergy Unknown UNKNOWN Verified 10/26/23 17:11 [Erythromycin Base] cyclobenzaprine AdvReac Intermediate Other Verified 11/03/23 17:43 [From Flexeril] Active Medications: Current Medications Acetaminophen (Acetaminophen 325 Mg Tablet) 650 mg PO Q6H PRN PRN Reason: Pain, Mild (Pain Scale 1-3), fever or headache Last Admin: 11/04/23 08:29 Dose: 650 mg Calcium Carbonate (Calcium Carbonate 750 Mg Tab.Chew) 750 mg PO Q4H PRN PRN Reason: Heartburn Clonazepam (Clonazepam 1 Mg Tablet) 1 mg PO BID [facility] Last Admin: 11/04/23 08:26 Dose: 1 mg Cyclobenzaprine HCl (Cyclobenzaprine Hcl 10 Mg Tablet) 10 mg PO TID PRN PRN Reason: Muscle Spasm Enoxaparin Sodium (Enoxaparin Sodium 40 Mg/0.4 Ml Syringe) 40 mg SUBCUT Q24H [facility] Last Admin: 11/03/23 20:03 Dose: 40 mg Hydroxyzine HCl (Hydroxyzine Hcl 25 Mg Tablet) 25 mg PO Q6H PRN PRN Reason: Anxiety Lamotrigine (Lamotrigine 100 Mg Tablet) 300 mg PO BID [facility] Lorazepam (Lorazepam 2 Mg/Ml Vial) 2 mg IVPUSH Q2H PRN PRN Reason: Seizures Magnesium Hydroxide (Milk Of Magnesia 30 Ml Oral.Susp) 30 ml PO DAILY PRN PRN Reason: Constipation Melatonin (Melatonin 3 Mg Tablet) 6 mg PO BEDTIME PRN PRN Reason: Insomnia Last Admin: 11/03/23 21:50 Dose: 6 mg Olanzapine (Olanzapine 5 Mg Tablet) 5 mg PO BEDTIME [facility] Phenytoin Sodium (Phenytoin Sodium Extended 100 Mg Capsule) 200 mg PO BID [facility] Last Admin: 11/04/23 12:48 Dose: 200 mg Sertraline HCl (Sertraline Hcl 100 Mg Tablet) 100 mg PO DAILY [facility] Last Admin: 11/04/23 08:26 Dose: 100 mg Sodium Chloride (0.9 % Sodium Chloride Flush 3 Ml Syringe) 3 ml IVFLUSH QSHIFT [facility] Last Admin: 11/04/23 08:26 Dose: 3 ml Trazodone HCl (Trazodone Hcl 50 Mg Tablet) 50 mg PO BEDTIME PRN PRN Reason: insomnia Home Medications ?Medication ?Instructions ?Recorded ?Confirmed ?Last Taken ?Type clonazepam 1 mg tablet 1 mg PO BID 11/03/23 11/03/23 11/03/23 History cyclobenzaprine 10 mg tablet 10 mg PO TID PRN Muscle Spasm 11/03/23 11/03/23 11/02/23 History divalproex 250 mg tablet,extended 500 mg PO BID 11/03/23 11/03/23 11/03/23 History release 24 hr olanzapine 5 mg tablet 5 mg PO BEDTIME 11/03/23 11/03/23 11/02/23 History Physical Exam Vital Signs: Vital Signs: Last Vital Signs Temp 98.0 F 11/04/23 12:00 Pulse 57 11/04/23 12:00 Resp 20 11/04/23 12:00 BP 114/57 L 11/04/23 12:00 Pulse Ox 97 11/04/23 12:00 O2 Del Method Room Air 11/04/23 12:00 O2 Flow Rate 6 11/03/23 19:52 BMI result Body Mass Index 37.3 Neuro: Other: He was alert and awake with normal spontaneity of speech fluency comprehension and affect. I talked to him about medicines and discussed changes I was going to make. Results Labs 11/04/23 08:37 11/04/23 08:37 Labs: Short CBC 11/03/23 11/04/23 Range/Units 19:58 08:37 WBC 5.3 4.5 L (4.8-10.8) X10*3/uL Hgb 12.3 L 12.0 L (14.0-18.0) g/dl Hct 36.5 L 36.2 L (42.0-52.0) % Plt Count 145 L 137 L (160-400) X10*3/uL BMP 11/03/23 11/04/23 19:58 08:37 Sodium 140 140 Potassium 4.5 4.4 Chloride 104 104 Carbon Dioxide 28 30 H BUN 32 H 30 H Creatinine 0.88 0.83 Calcium 9.3 9.1 Liver Function 11/04/23 Range/Units 08:37 Total Bilirubin 0.3 (0.0-1.0) mg/dL Direct Bilirubin 0.1 (0.0-0.5) mg/dL AST 17 (5-37) U/L ALT 16 (0-40) U/L Alkaline Phosphatase 40 (39-117) U/L Albumin 3.6 (3.5-5.0) g/dL Assessment and Plan (1) Intractable epilepsy: Qualifiers: Epilepsy type: generalized idiopathic Status epilepticus: without status epilepticus Qualified Code(s): 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 My previous suspicion had been that he might have primary generalized epilepsy. Recent EEG suggested right hemispheric discharges before the became generalized. Many years ago he was treated with Dilantin that was stopped due to some gum disease. In recent years he has tried Keppra and Depakote lamotrigine combination but seizures have never been control. My recommendation at this time is to discontinue Keppra and Depakote and continue lamotrigine and Dilantin 200 mg twice a day. An MRI of brain with and without contrast is recommended. Procedures Date of Service Date of Service: 11/04/23
--- NOTE | 2023-11-04 15:08 | MHC.CM.PN ---
Pt came from [facility] psych unit. He said his DCP is to go back there and complete treatment of better medication management for his bi-polar D/O and his seizure D/O. He lives with his 2 brothers, does have a nurse that visits MWF, to set up his meds, and take his BP. This is provided by [facility]. PCP is Dr. Buenrostro. Pt said that he wants to move out of his brother's house. He said his income is from SSI / DI. CM informed him he can apply for housing, and it will take time for him to get an apt. DCP: to continue treatment on psych unit. CM to follow for DC needs.
[2023-11-04] MEDS: Melatonin 3 MG TABLET 6 MG PO (20:16)
[2023-11-04] MEDS: Enoxaparin Sodium 40 MG/0.4 ML SYRINGE SUBCUT (20:17)
[2023-11-04] MEDS: Ibuprofen 600 MG TABLET PO (21:21)
[2023-11-05 04:11] VITALS: BP 105/59
[2023-11-05] MEDS: Phenytoin Sodium Extended 100 MG CAPSULE 200 MG PO ×2 (07:38→20:24)
[2023-11-05] MEDS: Sertraline HCL 100 MG TABLET PO (07:38)
[2023-11-05] MEDS: 0.9 % Sodium Chloride Flush 3 ML SYRINGE IVFLUSH ×3 (07:38→20:24)
[2023-11-05] MEDS: clonazePAM 1 MG TABLET PO ×2 (07:38→20:24)
[2023-11-05] MEDS: lamoTRIgine 100 MG TABLET 300 MG PO ×2 (07:38→20:24)
[2023-11-05] MEDS: Acetaminophen 325 MG TABLET 650 MG PO ×2 (07:40→20:23)
[2023-11-05 08:00] VITALS: BP 106/53; PULSE 55; RESP 20; TEMP 36.4; O2SAT 97
--- NOTE | 2023-11-05 09:45 | HO.PM.IMPN ---
Subjective Subjective Date of Service: 11/05/23 Interval History: no further seizures since admission Physical Exam Vital Signs: Vital Signs: Last Vital Signs Temp 97.6 F 11/05/23 08:00 Pulse 55 11/05/23 08:00 Resp 20 11/05/23 08:00 BP 106/53 L 11/05/23 08:00 Pulse Ox 97 11/05/23 08:00 O2 Del Method Room Air 11/05/23 08:00 O2 Flow Rate 6 11/03/23 19:52 BMI result Body Mass Index 37.3 Neuro: Other: He was alert and awake with normal spontaneity of speech fluency comprehension and affect. Objective Data Active Medications Acetaminophen (Acetaminophen 325 Mg Tablet) 650 mg PO Q6H PRN PRN Reason: Pain, Mild (Pain Scale 1-3), fever or headache Last Admin: 11/05/23 07:40 Dose: 650 mg Documented By: RONNI Calcium Carbonate (Calcium Carbonate 750 Mg Tab.Chew) 750 mg PO Q4H PRN PRN Reason: Heartburn Clonazepam (Clonazepam 1 Mg Tablet) 1 mg PO BID [facility] Last Admin: 11/05/23 07:38 Dose: 1 mg Documented By: RONNI Cyclobenzaprine HCl (Cyclobenzaprine Hcl 10 Mg Tablet) 10 mg PO TID PRN PRN Reason: Muscle Spasm Enoxaparin Sodium (Enoxaparin Sodium 40 Mg/0.4 Ml Syringe) 40 mg SUBCUT Q24H [facility] Last Admin: 11/04/23 20:17 Dose: 40 mg Documented By: CLAU Hydroxyzine HCl (Hydroxyzine Hcl 25 Mg Tablet) 25 mg PO Q6H PRN PRN Reason: Anxiety Lamotrigine (Lamotrigine 100 Mg Tablet) 300 mg PO BID [facility] Last Admin: 11/05/23 07:38 Dose: 300 mg Documented By: RONNI Lorazepam (Lorazepam 2 Mg/Ml Vial) 2 mg IVPUSH Q2H PRN PRN Reason: Seizures Magnesium Hydroxide (Milk Of Magnesia 30 Ml Oral.Susp) 30 ml PO DAILY PRN PRN Reason: Constipation Melatonin (Melatonin 3 Mg Tablet) 6 mg PO BEDTIME PRN PRN Reason: Insomnia Last Admin: 11/04/23 20:16 Dose: 6 mg Documented By: CLAU Olanzapine (Olanzapine 5 Mg Tablet) 5 mg PO BEDTIME [facility] Last Admin: 11/04/23 20:58 Dose: Not Given Documented By: CLAU Non-Admin Reason: Patient Refused Phenytoin Sodium (Phenytoin Sodium Extended 100 Mg Capsule) 200 mg PO BID [facility] Last Admin: 11/05/23 07:38 Dose: 200 mg Documented By: RONNI Sertraline HCl (Sertraline Hcl 100 Mg Tablet) 100 mg PO DAILY [facility] Last Admin: 11/05/23 07:38 Dose: 100 mg Documented By: RONNI Sodium Chloride (0.9 % Sodium Chloride Flush 3 Ml Syringe) 3 ml IVFLUSH QSHIFT [facility] Last Admin: 11/05/23 07:38 Dose: 3 ml Documented By: RONNI Trazodone HCl (Trazodone Hcl 50 Mg Tablet) 50 mg PO BEDTIME PRN PRN Reason: insomnia Labs 11/04/23 08:37 11/04/23 08:37 Assessment and Plan (1) Bipolar disorder: Status: Acute Plan 43M PMH intractable seizures, copd, etoh dependence, bipolar, ptsd, obesity, admitted to inpatient psychiatry for SI and HI, presented with seizure intractable seizures neuro appreciated keppra and depkote stopped conitnued lamictal dilantin added MRI with Mild diffuse volume loss of the cerebellum. Moderate prominence of the CSF space posterior to the cerebellum ativan prn, seizure precautions copd stable etoh dependence no signs of withdrawal bipolar with SI and HI continue mood stabilizers 1:1 will need clearance when medically cleared obesity weight loss recommended dvt prophylaxis - lovenox full code reason for continued hospitalization: monitoring for seizure control Quality Stroke Does the patient have a stroke diagnosis?: No VTE Prior VTE?: No VTE Risk Level:: Medical - moderate - high VTE Device Contraindication: Treatment Not Indicated VTE Drug Contraindication: N/A - Med Ordered
[2023-11-05 11:56] VITALS: BP 114/47; PULSE 60; RESP 20; TEMP 37; O2SAT 97
[2023-11-05] MEDS: NaPROXEN 500 MG TABLET PO (13:56)
[2023-11-05 16:00] VITALS: BP 120/60; PULSE 56; RESP 20; TEMP 36.6; O2SAT 96
[2023-11-05 19:36] VITALS: BP 114/56; PULSE 58; RESP 20; TEMP 36.2; O2SAT 95
[2023-11-05] MEDS: Enoxaparin Sodium 40 MG/0.4 ML SYRINGE SUBCUT (20:22)
[2023-11-05] MEDS: OLANZapine 5 MG TABLET PO (20:24)
[2023-11-05] MEDS: Melatonin 3 MG TABLET 6 MG PO (21:24)
[2023-11-05 23:34] VITALS: BP 106/46; PULSE 50; RESP 20; TEMP 36.3; O2SAT 94
[2023-11-06 03:25] VITALS: BP 106/57; PULSE 54; RESP 20; TEMP 36.6; O2SAT 94
[2023-11-06 07:42] VITALS: BP 117/56; PULSE 61; RESP 20; TEMP 36.2; O2SAT 97
[2023-11-06] MEDS: Phenytoin Sodium Extended 100 MG CAPSULE 200 MG PO ×2 (09:53→20:39)
[2023-11-06] MEDS: lamoTRIgine 100 MG TABLET 300 MG PO ×2 (09:54→20:39)
[2023-11-06] MEDS: Sertraline HCL 100 MG TABLET PO (09:54)
[2023-11-06] MEDS: clonazePAM 1 MG TABLET PO ×2 (09:54→20:33)
[2023-11-06] MEDS: 0.9 % Sodium Chloride Flush 3 ML SYRINGE IVFLUSH ×3 (09:55→20:34)
[2023-11-06] MEDS: Acetaminophen 325 MG TABLET 650 MG PO ×2 (09:59→21:03)
[2023-11-06 11:51] VITALS: BP 117/59; PULSE 56; RESP 18; TEMP 36.3; O2SAT 95
--- NOTE | 2023-11-06 11:51 | HO.PM.IMPN ---
Subjective Subjective Date of Service: 11/06/23 Interval History: no further seizures Physical Exam Vital Signs: Vital Signs: Last Vital Signs Temp 97.1 F 11/06/23 07:42 Pulse 61 11/06/23 07:42 Resp 20 11/06/23 07:42 BP 117/56 L 11/06/23 07:42 Pulse Ox 97 11/06/23 07:42 O2 Del Method Room Air 11/06/23 07:42 O2 Flow Rate 6 11/03/23 19:52 BMI result Body Mass Index 37.3 Neuro: Other: He was alert and awake with normal spontaneity of speech fluency comprehension and affect. Objective Data Active Medications Acetaminophen (Acetaminophen 325 Mg Tablet) 650 mg PO Q6H PRN PRN Reason: Pain, Mild (Pain Scale 1-3), fever or headache Last Admin: 11/06/23 09:59 Dose: 650 mg Documented By: ZARA Calcium Carbonate (Calcium Carbonate 750 Mg Tab.Chew) 750 mg PO Q4H PRN PRN Reason: Heartburn Clonazepam (Clonazepam 1 Mg Tablet) 1 mg PO BID [facility] Last Admin: 11/06/23 09:54 Dose: 1 mg Documented By: ZARA Cyclobenzaprine HCl (Cyclobenzaprine Hcl 10 Mg Tablet) 10 mg PO TID PRN PRN Reason: Muscle Spasm Enoxaparin Sodium (Enoxaparin Sodium 40 Mg/0.4 Ml Syringe) 40 mg SUBCUT Q24H [facility] Last Admin: 11/05/23 20:22 Dose: 40 mg Documented By: EDSON Hydroxyzine HCl (Hydroxyzine Hcl 25 Mg Tablet) 25 mg PO Q6H PRN PRN Reason: Anxiety Lamotrigine (Lamotrigine 100 Mg Tablet) 300 mg PO BID [facility] Last Admin: 11/06/23 09:54 Dose: 300 mg Documented By: ZARA Lorazepam (Lorazepam 2 Mg/Ml Vial) 2 mg IVPUSH Q2H PRN PRN Reason: Seizures Magnesium Hydroxide (Milk Of Magnesia 30 Ml Oral.Susp) 30 ml PO DAILY PRN PRN Reason: Constipation Melatonin (Melatonin 3 Mg Tablet) 6 mg PO BEDTIME PRN PRN Reason: Insomnia Last Admin: 11/05/23 21:24 Dose: 6 mg Documented By: EDSON Olanzapine (Olanzapine 5 Mg Tablet) 5 mg PO BEDTIME [facility] Last Admin: 11/05/23 20:24 Dose: 5 mg Documented By: EDSON Phenytoin Sodium (Phenytoin Sodium Extended 100 Mg Capsule) 200 mg PO BID [facility] Last Admin: 11/06/23 09:53 Dose: 200 mg Documented By: ZARA Sertraline HCl (Sertraline Hcl 100 Mg Tablet) 100 mg PO DAILY [facility] Last Admin: 11/06/23 09:54 Dose: 100 mg Documented By: ZARA Sodium Chloride (0.9 % Sodium Chloride Flush 3 Ml Syringe) 3 ml IVFLUSH QSHIFT [facility] Last Admin: 11/06/23 09:55 Dose: 3 ml Documented By: ZARA Trazodone HCl (Trazodone Hcl 50 Mg Tablet) 50 mg PO BEDTIME PRN PRN Reason: insomnia Labs 11/04/23 08:37 11/04/23 08:37 Assessment and Plan (1) Bipolar disorder: Status: Acute Plan 43M PMH intractable seizures, copd, etoh dependence, bipolar, ptsd, obesity, admitted to inpatient psychiatry for SI and HI, presented with seizure intractable seizures neuro appreciated keppra and depkote stopped conitnued lamictal dilantin added MRI with Mild diffuse volume loss of the cerebellum. Moderate prominence of the CSF space posterior to the cerebellum ativan prn, seizure precautions no further seizures copd stable etoh dependence no signs of withdrawal bipolar with SI and HI continue mood stabilizers 1:1 care team recommending inpatient psychiatry, awaiting bed obesity weight loss recommended dvt prophylaxis - lovenox full code reason for continued hospitalization: awaiting psych bed Quality Stroke Does the patient have a stroke diagnosis?: No VTE Prior VTE?: No VTE Risk Level:: Medical - moderate - high VTE Device Contraindication: Treatment Not Indicated VTE Drug Contraindication: N/A - Med Ordered
--- NOTE | 2023-11-06 11:54 | PM.DS ---
DS: Providers Provider Date of Service: 11/09/23 Date of admission: 11/03/23 18:59 Date of discharge: 11/09/23 Primary care physician: Unknown Physician Consults: 11/03/23 18:58 Consult to Neurology Routine Consulting Provider: [facility] Reason for consultation: seizure 11/03/23 19:01 Consult for Sitter Routine Reason for consultation: SI and HI 11/06/23 09:37 Consult to Care Team Routine Comment: Reason for consultation: si, hi, medically cleared DS: Diagnosis Discharge Diagnosis (1) Bipolar disorder: Status: Acute DS: Summary Hospital Course Hospital Course: from initial hpi: 43M PMH intractable seizures, copd, etoh dependence, bipolar, ptsd, obesity, admitted to inpatient psychiatry for SI and HI. on 11/03/23 had 3 generalized seizures. patient has been taking 3 AEDs. was seen by neuro, recommended continuing meds and rechecking levels in a few days. at about 1800 patient had another generalized seizure with incontinance of stool, cyanosis, hypoxia, broke with 1mg of ativan. now post ictal. hypoxia resolved. plan to transfer to medical floor for better seizure control and [facility] course: Patient was admitted for intractable seizures. He was seen by neurology recommended stopping Keppra and Depakote and continue Lamictal as well as adding Dilantin which was initially loaded 1 g and and then put on 200 mg b.i.d.. He underwent MRI which showed mild diffuse volume loss of the cerebellum and moderate prominence of the CSF space posterior to the cerebellum. Seizures were much better controlled but he did have a another generalized seizure early a.m. 11/08/2023. Was seen by Neurology who recommended another 500 mg loading of Dilantin and increasing bedtime Dilantin to 300 mg and continuing a.m. Dilantin 200 mg. Goal is to minimize generalized seizures though unlikely to fully prevent. He was seen by care team who recommended admission back to inpatient psychiatry for bipolar disorder with suicidal ideation and homicidal ideation. For COPD remained stable. For alcohol dependency showed no signs of withdrawal. For obesity weight loss recommended. Time Attestation Discharge Coordination Time (in mins): 33 Quality: Safe Use of Opioids Does Pt have an Active Cancer Diagnosis on the Problem List?: No Quality: Stroke Does the patient have a stroke diagnosis?: No Physical Exam Vital Signs: Vital Signs: Last Vital Signs Temp 97.1 F 11/06/23 07:42 Pulse 61 11/06/23 07:42 Resp 20 11/06/23 07:42 BP 117/56 L 11/06/23 07:42 Pulse Ox 97 11/06/23 07:42 O2 Del Method Room Air 11/06/23 07:42 O2 Flow Rate 6 11/03/23 19:52 BMI result Body Mass Index 37.3 Neuro: Other: He was alert and awake with normal spontaneity of speech fluency comprehension and affect. Discharge Plan Discharge Anticipated Discharge Date/Time: 11/06/23 11:52 Patient Disposition: Xfer Psychiatric Hosp Discharge Diagnosis: seizure Referrals: Physician,Unknown J [Physician] - 1 Week Discharge Medications: New phenytoin sodium extended [Dilantin Extended] 100 mg Capsule 200 mg PO DAILY Qty: 0 0RF phenytoin sodium extended [Dilantin Extended] 100 mg Capsule 300 mg PO BEDTIME Qty: 0 0RF Continued acetaminophen 325 mg Tablet 650 mg PO Q8H PRN (Reason: Headache/Pain Mild Scale (1-3)) Qty: 0 0RF trazodone 50 mg Tablet 50 mg PO BEDTIME MRX1 PRN (Reason: Insomnia) Qty: 0 0RF sertraline 100 mg Tablet 100 mg PO DAILY Qty: 0 0RF melatonin 3 mg Tablet 6 mg PO BEDTIME PRN (Reason: Insomnia) Qty: 0 0RF magnesium hydroxide [Milk of Magnesia] 400 mg/5 mL Suspension 30 ml PO DAILY PRN (Reason: Constipation) Qty: 0 0RF hydroxyzine HCl 25 mg Tablet 25 mg PO Q6H PRN (Reason: Anxiety) Qty: 0 0RF ibuprofen 600 mg Tablet 600 mg PO Q8H PRN (Reason: Pain, Mild (Pain Scale 1-3)) Qty: 0 0RF lamotrigine 100 mg Tablet 300 mg PO BID Qty: 0 0RF clonazepam 1 mg tablet 1 mg PO BID cyclobenzaprine 10 mg Tablet 10 mg PO TID PRN (Reason: Muscle Spasm) olanzapine 5 mg Tablet 5 mg PO BEDTIME Discontinued levetiracetam 1,000 mg Tablet 2,000 mg PO BID Qty: 0 0RF divalproex 250 mg tablet extended release 24 hr 500 mg PO BID Discharge Orders: Discharge Order (Routine); Ordered 11/09/23 Ordered By: Jeovanny Garcia Diet: Advance to usual diet Activity on Discharge: As tolerated Stand Alone Forms: Patient Portal Discharge page Print Language: German Care Plan Goals: minimize generalized seizures Health Concerns: seizures Plan of Treatment: med changes per medrec Assessment: see above
[2023-11-06 15:21] VITALS: BP 126/61; PULSE 63; RESP 16; TEMP 36.5; O2SAT 94
[2023-11-06 19:19] VITALS: BP 132/69; PULSE 67; RESP 20; TEMP 36.9; O2SAT 96
[2023-11-06] MEDS: OLANZapine 5 MG TABLET PO (20:33)
[2023-11-06] MEDS: Enoxaparin Sodium 40 MG/0.4 ML SYRINGE SUBCUT (20:33)
[2023-11-06 23:05] VITALS: BP 105/50; PULSE 62; RESP 20; TEMP 37; O2SAT 95
[2023-11-07 04:00] VITALS: BP 116/65; PULSE 65; RESP 20; TEMP 36.6; O2SAT 95
--- NOTE | 2023-11-07 07:13 | PC.NURSE ---
Patient states he have a seizure which was quick. Seizure was not witness by screen writer. On assessment AOX3.Sitting up in bed.Sitter at bedside.DR De León make aware by oncoming nurse.VSS.
[2023-11-07] MEDS: LORazepam 2 MG/ML VIAL 1 MG IVPUSH ×2 (07:21→12:47)
[2023-11-07 07:22] VITALS: BP 138/75; PULSE 54; RESP 16; TEMP 35.9; O2SAT 99
[2023-11-07 07:49] VITALS: BP 148/70; PULSE 58; RESP 20; TEMP 36.5; O2SAT 100
[2023-11-07] MEDS: Phenytoin Sodium Extended 100 MG CAPSULE 200 MG PO ×2 (08:32→20:46)
[2023-11-07] MEDS: lamoTRIgine 100 MG TABLET 300 MG PO ×2 (08:32→20:45)
[2023-11-07] MEDS: Sertraline HCL 100 MG TABLET PO (08:33)
[2023-11-07] MEDS: clonazePAM 1 MG TABLET PO ×2 (08:33→20:47)
[2023-11-07] MEDS: 0.9 % Sodium Chloride Flush 3 ML SYRINGE IVFLUSH ×3 (08:35→20:52)
[2023-11-07] MEDS: LORazepam 2 MG/ML VIAL IVPUSH ×2 (09:01→19:30)
--- NOTE | 2023-11-07 09:24 | P.PNIM_ITS ---
Subjective Subjective Date of Service: 11/07/23 Interval History: having petit malraymundo this AM Physical Exam 2 Vital Signs: Vital Signs: Last Vital Signs Temp 97.7 F 11/07/23 07:49 Pulse 58 11/07/23 07:49 Resp 20 11/07/23 07:49 BP 148/70 H 11/07/23 07:49 Pulse Ox 100 11/07/23 07:49 O2 Del Method Room Air 11/07/23 07:49 O2 Flow Rate 6 11/03/23 19:52 BMI result Body Mass Index 37.3 Neuro: Other: He was alert and awake with normal spontaneity of speech fluency comprehension and affect. Objective Data Active Medications Acetaminophen (Acetaminophen 325 Mg Tablet) 650 mg PO Q6H PRN PRN Reason: Pain, Mild (Pain Scale 1-3), fever or headache Last Admin: 11/06/23 21:03 Dose: 650 mg Documented By: EDSON Calcium Carbonate (Calcium Carbonate 750 Mg Tab.Chew) 750 mg PO Q4H PRN PRN Reason: Heartburn Clonazepam (Clonazepam 1 Mg Tablet) 1 mg PO BID [facility] Last Admin: 11/07/23 08:33 Dose: 1 mg Documented By: LAVONNE Cyclobenzaprine HCl (Cyclobenzaprine Hcl 10 Mg Tablet) 10 mg PO TID PRN PRN Reason: Muscle Spasm Enoxaparin Sodium (Enoxaparin Sodium 40 Mg/0.4 Ml Syringe) 40 mg SUBCUT Q24H [facility] Last Admin: 11/06/23 20:33 Dose: 40 mg Documented By: EDSON Hydroxyzine HCl (Hydroxyzine Hcl 25 Mg Tablet) 25 mg PO Q6H PRN PRN Reason: Anxiety Lamotrigine (Lamotrigine 100 Mg Tablet) 300 mg PO BID [facility] Last Admin: 11/07/23 08:32 Dose: 300 mg Documented By: LAVONNE Lorazepam (Lorazepam 2 Mg/Ml Vial) 2 mg IVPUSH Q2H PRN PRN Reason: Seizures Last Admin: 11/07/23 09:01 Dose: 2 mg Documented By: LAVONNE Magnesium Hydroxide (Milk Of Magnesia 30 Ml Oral.Susp) 30 ml PO DAILY PRN PRN Reason: Constipation Melatonin (Melatonin 3 Mg Tablet) 6 mg PO BEDTIME PRN PRN Reason: Insomnia Last Admin: 11/05/23 21:24 Dose: 6 mg Documented By: EDSON Olanzapine (Olanzapine 5 Mg Tablet) 5 mg PO BEDTIME [facility] Last Admin: 11/06/23 20:33 Dose: 5 mg Documented By: EDSON Phenytoin Sodium (Phenytoin Sodium Extended 100 Mg Capsule) 200 mg PO BID [facility] Last Admin: 11/07/23 08:32 Dose: 200 mg Documented By: LAVONNE Sertraline HCl (Sertraline Hcl 100 Mg Tablet) 100 mg PO DAILY [facility] Last Admin: 11/07/23 08:33 Dose: 100 mg Documented By: LAVONNE Sodium Chloride (0.9 % Sodium Chloride Flush 3 Ml Syringe) 3 ml IVFLUSH QSHIFT [facility] Last Admin: 11/07/23 08:35 Dose: 3 ml Documented By: LAVONNE Trazodone HCl (Trazodone Hcl 50 Mg Tablet) 50 mg PO BEDTIME PRN PRN Reason: insomnia Labs 11/04/23 08:37 11/04/23 08:37 Assessment and Plan (1) Bipolar disorder: Status: Acute Plan 43M PMH intractable seizures, copd, etoh dependence, bipolar, ptsd, obesity, admitted to inpatient psychiatry for SI and HI, presented with seizure intractable seizures neuro appreciated keppra and depkote stopped conitnued lamictal dilantin added MRI with Mild diffuse volume loss of the cerebellum. Moderate prominence of the CSF space posterior to the cerebellum ativan prn, seizure precautions having petit mals this AM 11/07/23 - using prn ativan, conitnue to closely monitor unlikely to fully suppress petit mals, goal to prevent generalization copd stable etoh dependence no signs of withdrawal bipolar with SI and HI continue mood stabilizers 1:1 care team recommending inpatient psychiatry, awaiting bed obesity weight loss recommended dvt prophylaxis - lovenox full code reason for continued hospitalization: monitoring while having petit mals, awaiting inpatient psych bed Quality Stroke Does the patient have a stroke diagnosis?: No VTE Prior VTE?: No VTE Risk Level:: Medical - moderate - high VTE Device Contraindication: Treatment Not Indicated VTE Drug Contraindication: N/A - Med Ordered
[2023-11-07 11:41] VITALS: BP 115/67; PULSE 76; RESP 20; TEMP 36.7; O2SAT 96
[2023-11-07 16:00] VITALS: BP 125/62; PULSE 63; RESP 19; TEMP 36.9; O2SAT 97
[2023-11-07] MEDS: Acetaminophen 325 MG TABLET 650 MG PO (16:17)
[2023-11-07 19:34] LABS: Glucose, Whole Blood 117 mg/dL (60-115)
--- NOTE | 2023-11-07 19:36 | PM.EVENT ---
Event Note Date of Service: 11/07/23 Event Note: Rapid response was called as patient had a fall, unwitnessed. Nurse at bedside thinks patient might have had a seizure that led to the fall. Will give Ativan 2 mg IV. Vitals okay and patient seems postictal. Will obtain CT head, bilateral hip x-ray. Time Spent With Patient Time: Total time managing care of this patient today ____ minutes.
[2023-11-07 20:00] VITALS: BP 143/66; PULSE 70; RESP 20; TEMP 36.7; O2SAT 95
[2023-11-07] MEDS: OLANZapine 5 MG TABLET PO (20:45)
[2023-11-07] MEDS: Melatonin 3 MG TABLET 6 MG PO (20:47)
[2023-11-07] MEDS: Enoxaparin Sodium 40 MG/0.4 ML SYRINGE SUBCUT (20:50)
[2023-11-07] MEDS: traZODone HCL 50 MG TABLET PO (23:51)
[2023-11-07] MEDS: hydrOXYzine HCL 25 MG TABLET PO (23:51)
[2023-11-08] VITALS (8 sets, daily range): BP systolic 102–163; BP diastolic 56–68; PULSE 54–79; RESP 16–20; TEMP 35.9–36.9; O2SAT 92–99
--- NOTE | 2023-11-08 01:08 | PC.NURSE ---
At around 193 Sitter alerted nurse to patients room and patient appeared to be having a seizure. BALER OPERATOR called at around 1930, vitals taken as well as POC. Seizure stopped around 731. Patient placed on O2 due to low oxygen. Dr. De León, respiratory, etc at bedside. Provider ordered 2mg IV Ativan.
[2023-11-08] MEDS: Acetaminophen 325 MG TABLET 650 MG PO ×2 (06:16→14:18)
[2023-11-08] MEDS: LORazepam 2 MG/ML VIAL IVPUSH (06:34)
--- NOTE | 2023-11-08 06:41 | PC.NURSE ---
Davdi alerted nurse that she needed help at 0631 patient found convulsing like earlier incident in shift. Dr. De León notified and PRN 2mg Ativan given. lasted about 2 minutes. Vitals taken
[2023-11-08] MEDS: Phenytoin Sodium Extended 100 MG CAPSULE 200 MG PO (08:27)
[2023-11-08] MEDS: clonazePAM 1 MG TABLET PO ×2 (08:27→20:05)
[2023-11-08] MEDS: lamoTRIgine 100 MG TABLET 300 MG PO ×2 (08:27→20:06)
[2023-11-08] MEDS: Sertraline HCL 100 MG TABLET PO (08:27)
[2023-11-08] MEDS: 0.9 % Sodium Chloride Flush 3 ML SYRINGE IVFLUSH ×3 (08:30→20:09)
--- NOTE | 2023-11-08 10:07 | HO.PM.IMPN ---
Subjective Subjective Date of Service: 11/08/23 Interval History: had generalized seizure at about 630am Physical Exam Vital Signs: Vital Signs: Last Vital Signs Temp 98.1 F 11/08/23 07:30 Pulse 67 11/08/23 07:30 Resp 20 11/08/23 07:30 BP 118/58 L 11/08/23 07:30 Pulse Ox 93 11/08/23 07:30 O2 Del Method Nasal Cannula 11/08/23 07:30 O2 Flow Rate 2 11/08/23 07:30 BMI result Body Mass Index 37.3 Neuro: Other: He was alert and awake with normal spontaneity of speech fluency comprehension and affect. Objective Data Active Medications Acetaminophen (Acetaminophen 325 Mg Tablet) 650 mg PO Q6H PRN PRN Reason: Pain, Mild (Pain Scale 1-3), fever or headache Last Admin: 11/08/23 06:16 Dose: 650 mg Documented By: TERRENCE Calcium Carbonate (Calcium Carbonate 750 Mg Tab.Chew) 750 mg PO Q4H PRN PRN Reason: Heartburn Clonazepam (Clonazepam 1 Mg Tablet) 1 mg PO BID [facility] Last Admin: 11/08/23 08:27 Dose: 1 mg Documented By: LAVONNE Cyclobenzaprine HCl (Cyclobenzaprine Hcl 10 Mg Tablet) 10 mg PO TID PRN PRN Reason: Muscle Spasm Enoxaparin Sodium (Enoxaparin Sodium 40 Mg/0.4 Ml Syringe) 40 mg SUBCUT Q24H [facility] Last Admin: 11/07/23 20:50 Dose: 40 mg Documented By: TERRENCE Hydroxyzine HCl (Hydroxyzine Hcl 25 Mg Tablet) 25 mg PO Q6H PRN PRN Reason: Anxiety Last Admin: 11/07/23 23:51 Dose: 25 mg Documented By: TERRENCE Lamotrigine (Lamotrigine 100 Mg Tablet) 300 mg PO BID [facility] Last Admin: 11/08/23 08:27 Dose: 300 mg Documented By: LAVONNE Lorazepam (Lorazepam 2 Mg/Ml Vial) 2 mg IVPUSH Q2H PRN PRN Reason: Seizures Last Admin: 11/08/23 06:34 Dose: 2 mg Documented By: TERRENCE Magnesium Hydroxide (Milk Of Magnesia 30 Ml Oral.Susp) 30 ml PO DAILY PRN PRN Reason: Constipation Melatonin (Melatonin 3 Mg Tablet) 6 mg PO BEDTIME PRN PRN Reason: Insomnia Last Admin: 11/07/23 20:47 Dose: 6 mg Documented By: TERRENCE Olanzapine (Olanzapine 5 Mg Tablet) 5 mg PO BEDTIME [facility] Last Admin: 11/07/23 20:45 Dose: 5 mg Documented By: TERRENCE Phenytoin Sodium (Phenytoin Sodium Extended 100 Mg Capsule) 200 mg PO BID [facility] Last Admin: 11/08/23 08:27 Dose: 200 mg Documented By: LAVONNE Sertraline HCl (Sertraline Hcl 100 Mg Tablet) 100 mg PO DAILY [facility] Last Admin: 11/08/23 08:27 Dose: 100 mg Documented By: LAVONNE Sodium Chloride (0.9 % Sodium Chloride Flush 3 Ml Syringe) 3 ml IVFLUSH QSHIFT [facility] Last Admin: 11/08/23 08:30 Dose: 3 ml Documented By: LAVONNE Trazodone HCl (Trazodone Hcl 50 Mg Tablet) 50 mg PO BEDTIME PRN PRN Reason: insomnia Last Admin: 11/07/23 23:51 Dose: 50 mg Documented By: TERRENCE Labs 11/04/23 08:37 11/04/23 08:37 Labs: Laboratory Results - last 24 hr 11/07/23 11/07/23 18:47 19:31 POC Glucose 117 H Phenytoin 11.0 Assessment and Plan (1) Bipolar disorder: Status: Acute Plan 43M PMH intractable seizures, copd, etoh dependence, bipolar, ptsd, obesity, admitted to inpatient psychiatry for SI and HI, presented with seizure intractable seizures neuro appreciated keppra and depkote stopped conitnued lamictal dilantin added - trough 11 MRI with Mild diffuse volume loss of the cerebellum. Moderate prominence of the CSF space posterior to the cerebellum ativan prn, seizure precautions had another grand mal this AM 11/08/23 - using prn ativan, continue to closely monitor unlikely to fully suppress petit mals, goal to prevent generalization, neuro follow up copd stable etoh dependence no signs of withdrawal bipolar with SI and HI continue mood stabilizers 1:1 will need repeat care team eval when medically cleared obesity weight loss recommended dvt prophylaxis - lovenox full code reason for continued hospitalization: breakthrough seizure Quality Stroke Does the patient have a stroke diagnosis?: No VTE Prior VTE?: No VTE Risk Level:: Medical - moderate - high VTE Device Contraindication: Treatment Not Indicated VTE Drug Contraindication: N/A - Med Ordered
--- NOTE | 2023-11-08 11:27 | P.CNNE_ITS ---
History of Present Illness Data of Consult Service Date: 11/08/23 Primary Care Provider: Unknown Physician HPI Reason for consult: Epilepsy 43 years old man with intractable epilepsy. His Keppra and Depakote have been stopped and he has been switched to Dilantin and lamotrigine is continued. He had couple of breakthrough seizures yesterday. Dilantin level was 11. PMFSH Past Medical History Medical History COPD (chronic obstructive pulmonary disease) Alcohol dependence Bipolar disorder Intractable epilepsy Social History Social History Household Members: Family Household Members Other:: Brothers, Uncle and a woman renting a room named Corrine Housing: House Do you presently have visiting nurse or other home services: Yes Alcohol intake: current Alcohol intake frequency: holidays/special occasions only Alcohol type: beer and hard liquor Comment: 1:1 sitter Patient Tobacco Use Status: Former Tobacco user Tobacco use type: Cigarette e-Cigarette/Vaping Use: Never Used Second Hand Smoke Exposure: No Use of substances other than those prescribed or required for medical reasons: No Currently Displaying Signs/Symptoms of Drug Intoxication Withdrawal: No Is there a partner from a previous relationship who is making you feel unsafe now?: No Advance Directives: No Advance Directives Information Provided: No Advance Directives on File: No Do you have a plan to hurt others: No Plan service: No Sexual orientation: Straight/Heterosexual Meds Allergies Allergy/AdvReac Type Severity Reaction Status Date / Time erythromycin base Allergy Unknown UNKNOWN Verified 10/26/23 17:11 [Erythromycin Base] cyclobenzaprine AdvReac Intermediate Other Verified 11/03/23 17:43 [From Flexeril] Active Medications: Current Medications Acetaminophen (Acetaminophen 325 Mg Tablet) 650 mg PO Q6H PRN PRN Reason: Pain, Mild (Pain Scale 1-3), fever or headache Last Admin: 11/08/23 06:16 Dose: 650 mg Calcium Carbonate (Calcium Carbonate 750 Mg Tab.Chew) 750 mg PO Q4H PRN PRN Reason: Heartburn Clonazepam (Clonazepam 1 Mg Tablet) 1 mg PO BID [facility] Last Admin: 11/08/23 08:27 Dose: 1 mg Cyclobenzaprine HCl (Cyclobenzaprine Hcl 10 Mg Tablet) 10 mg PO TID PRN PRN Reason: Muscle Spasm Enoxaparin Sodium (Enoxaparin Sodium 40 Mg/0.4 Ml Syringe) 40 mg SUBCUT Q24H [facility] Last Admin: 11/07/23 20:50 Dose: 40 mg Hydroxyzine HCl (Hydroxyzine Hcl 25 Mg Tablet) 25 mg PO Q6H PRN PRN Reason: Anxiety Last Admin: 11/07/23 23:51 Dose: 25 mg Lamotrigine (Lamotrigine 100 Mg Tablet) 300 mg PO BID [facility] Last Admin: 11/08/23 08:27 Dose: 300 mg Lorazepam (Lorazepam 2 Mg/Ml Vial) 2 mg IVPUSH Q2H PRN PRN Reason: Seizures Last Admin: 11/08/23 06:34 Dose: 2 mg Magnesium Hydroxide (Milk Of Magnesia 30 Ml Oral.Susp) 30 ml PO DAILY PRN PRN Reason: Constipation Melatonin (Melatonin 3 Mg Tablet) 6 mg PO BEDTIME PRN PRN Reason: Insomnia Last Admin: 11/07/23 20:47 Dose: 6 mg Olanzapine (Olanzapine 5 Mg Tablet) 5 mg PO BEDTIME [facility] Last Admin: 11/07/23 20:45 Dose: 5 mg Phenytoin Sodium (Phenytoin Sodium Extended 100 Mg Capsule) 200 mg PO BID [facility] Last Admin: 11/08/23 08:27 Dose: 200 mg Sertraline HCl (Sertraline Hcl 100 Mg Tablet) 100 mg PO DAILY [facility] Last Admin: 11/08/23 08:27 Dose: 100 mg Sodium Chloride (0.9 % Sodium Chloride Flush 3 Ml Syringe) 3 ml IVFLUSH QSHIFT [facility] Last Admin: 11/08/23 08:30 Dose: 3 ml Trazodone HCl (Trazodone Hcl 50 Mg Tablet) 50 mg PO BEDTIME PRN PRN Reason: insomnia Last Admin: 11/07/23 23:51 Dose: 50 mg Home Medications ?Medication ?Instructions ?Recorded ?Confirmed ?Last Taken ?Type clonazepam 1 mg tablet 1 mg PO BID 11/03/23 11/03/23 11/03/23 History cyclobenzaprine 10 mg tablet 10 mg PO TID PRN Muscle Spasm 11/03/23 11/03/23 11/02/23 History olanzapine 5 mg tablet 5 mg PO BEDTIME 11/03/23 11/03/23 11/02/23 History Physical Exam 2 Vital Signs: Vital Signs: Last Vital Signs Temp 98.5 F 11/08/23 11:09 Pulse 68 11/08/23 11:09 Resp 18 11/08/23 11:09 BP 124/60 11/08/23 11:09 Pulse Ox 96 11/08/23 11:09 O2 Del Method Nasal Cannula 11/08/23 11:09 O2 Flow Rate 2 11/08/23 11:09 BMI result Body Mass Index 37.3 Neuro: Other: He is alert and awake with normal spontaneity of speech fluency comprehension and affect. No focal weakness is noted Results Labs 11/04/23 08:37 11/04/23 08:37 Assessment and Plan (1) Intractable epilepsy: Qualifiers: Epilepsy type: generalized idiopathic Status epilepticus: without status epilepticus Qualified Code(s): G40.319 - Generalized idiopathic epilepsy and epileptic syndromes, intractable, without status epilepticus Status: Acute 43 years old man with intractable epilepsy. My recommendation is to increase Dilantin does to 5 pills a day, to in the morning and 3 at night and check his level again in a week time. Same dose of lamotrigine should continue. Procedures Date of Service Date of Service: 11/08/23
[2023-11-08] MEDS: Phenytoin Sodium 500 MG in 0.9 % Sodium Chloride 100 ML 100 MG IV (12:32)
[2023-11-08] MEDS: Enoxaparin Sodium 40 MG/0.4 ML SYRINGE SUBCUT (20:03)
[2023-11-08] MEDS: Phenytoin Sodium Extended 100 MG CAPSULE 300 MG PO (20:04)
[2023-11-08] MEDS: Melatonin 3 MG TABLET 6 MG PO (20:07)
[2023-11-08] MEDS: traZODone HCL 50 MG TABLET PO (21:38)
[2023-11-08] MEDS: OLANZapine 5 MG TABLET PO (21:38)
[2023-11-09 04:00] VITALS: BP 111/59; PULSE 60; RESP 16; TEMP 36.6; O2SAT 95
--- NOTE | 2023-11-09 04:21 | PC.NURSE ---
19:00 11/08/2023 Handover received and acquired care of pt. Pt. has 1:1 constant observer within pt. reach for HI. Pt. awake, alert and oriented x4. Calm and cooperative. Pt. denies ora's and no seizure activity observed overnight. Pt. and very quick-moving and occasionally unsteady on feet. Pt. wanting to ambulate in the hart last evening. For safety purpose and seizure precautions, permitted pt. to ambulate in room with minimum of 1 person accompanying him. Pt. agreeable. Pt. rested overnight.
[2023-11-09 07:37] VITALS: BP 104/52; PULSE 58; RESP 20; TEMP 36.4; O2SAT 96
[2023-11-09] MEDS: clonazePAM 1 MG TABLET PO (09:04)
[2023-11-09] MEDS: Phenytoin Sodium Extended 100 MG CAPSULE 200 MG PO (09:04)
[2023-11-09] MEDS: lamoTRIgine 100 MG TABLET 300 MG PO (09:04)
[2023-11-09] MEDS: Sertraline HCL 100 MG TABLET PO (09:04)
[2023-11-09] MEDS: 0.9 % Sodium Chloride Flush 3 ML SYRINGE IVFLUSH (09:04)
[2023-11-09] MEDS: Acetaminophen 325 MG TABLET 650 MG PO (09:07)
--- NOTE | 2023-11-09 09:16 | P.PNIM_ITS ---
Subjective Subjective Date of Service: 11/09/23 Interval History: no furteher generalized since yesterday am Physical Exam 2 Vital Signs: Vital Signs: Last Vital Signs Temp 97.6 F 11/09/23 07:37 Pulse 58 11/09/23 07:37 Resp 20 11/09/23 07:37 BP 104/52 L 11/09/23 07:37 Pulse Ox 96 11/09/23 07:37 O2 Del Method Room Air 11/09/23 07:37 O2 Flow Rate 2 11/08/23 11:09 BMI result Body Mass Index 37.3 Neuro: Other: He is alert and awake with normal spontaneity of speech fluency comprehension and affect. No focal weakness is noted Objective Data Active Medications Acetaminophen (Acetaminophen 325 Mg Tablet) 650 mg PO Q6H PRN PRN Reason: Pain, Mild (Pain Scale 1-3), fever or headache Last Admin: 11/09/23 09:07 Dose: 650 mg Documented By: LAVONNE Calcium Carbonate (Calcium Carbonate 750 Mg Tab.Chew) 750 mg PO Q4H PRN PRN Reason: Heartburn Clonazepam (Clonazepam 1 Mg Tablet) 1 mg PO BID [facility] Last Admin: 11/09/23 09:04 Dose: 1 mg Documented By: LAVONNE Cyclobenzaprine HCl (Cyclobenzaprine Hcl 10 Mg Tablet) 10 mg PO TID PRN PRN Reason: Muscle Spasm Enoxaparin Sodium (Enoxaparin Sodium 40 Mg/0.4 Ml Syringe) 40 mg SUBCUT Q24H [facility] Last Admin: 11/08/23 20:03 Dose: 40 mg Documented By: SARAN Hydroxyzine HCl (Hydroxyzine Hcl 25 Mg Tablet) 25 mg PO Q6H PRN PRN Reason: Anxiety Last Admin: 11/07/23 23:51 Dose: 25 mg Documented By: TERRENCE Lamotrigine (Lamotrigine 100 Mg Tablet) 300 mg PO BID [facility] Last Admin: 11/09/23 09:04 Dose: 300 mg Documented By: LAVONNE Lorazepam (Lorazepam 2 Mg/Ml Vial) 2 mg IVPUSH Q2H PRN PRN Reason: Seizures Last Admin: 11/08/23 06:34 Dose: 2 mg Documented By: TERRENCE Magnesium Hydroxide (Milk Of Magnesia 30 Ml Oral.Susp) 30 ml PO DAILY PRN PRN Reason: Constipation Melatonin (Melatonin 3 Mg Tablet) 6 mg PO BEDTIME PRN PRN Reason: Insomnia Last Admin: 11/08/23 20:07 Dose: 6 mg Documented By: SARAN Olanzapine (Olanzapine 5 Mg Tablet) 5 mg PO BEDTIME [facility] Last Admin: 11/08/23 21:38 Dose: 5 mg Documented By: SARAN Phenytoin Sodium (Phenytoin Sodium Extended 100 Mg Capsule) 300 mg PO BEDTIME [facility] Last Admin: 11/08/23 20:04 Dose: 300 mg Documented By: SARAN Phenytoin Sodium (Phenytoin Sodium Extended 100 Mg Capsule) 200 mg PO DAILY [facility] Last Admin: 11/09/23 09:04 Dose: 200 mg Documented By: LAVONNE Sertraline HCl (Sertraline Hcl 100 Mg Tablet) 100 mg PO DAILY [facility] Last Admin: 11/09/23 09:04 Dose: 100 mg Documented By: LAVONNE Sodium Chloride (0.9 % Sodium Chloride Flush 3 Ml Syringe) [facility] Last Admin: 11/09/23 09:04 Dose: 3 ml Documented By: LAVONNE Trazodone HCl (Trazodone Hcl 50 Mg Tablet) 50 mg PO BEDTIME PRN PRN Reason: insomnia Last Admin: 11/08/23 21:38 Dose: 50 mg Documented By: SARAN Labs 11/04/23 08:37 11/04/23 08:37 Assessment and Plan (1) Bipolar disorder: Status: Acute Plan 43M PMH intractable seizures, copd, etoh dependence, bipolar, ptsd, obesity, admitted to inpatient psychiatry for SI and HI, presented with seizure intractable seizures neuro appreciated keppra and depkote stopped conitnued lamictal dilantin added - trough 11 d/w neuro, bolused another 500mg dilantin and increased dose to 200mg qam, 300mg qpm MRI with Mild diffuse volume loss of the cerebellum. Moderate prominence of the CSF space posterior to the cerebellum ativan prn, seizure precautions unlikely to fully suppress petit mals, goal to minimize generalization - d/w neuro, medically cleared for discharged to inpatient psychiatry. copd stable etoh dependence no signs of withdrawal bipolar with SI and HI continue mood stabilizers 1:1 plan for inpatient psych placement obesity weight loss recommended dvt prophylaxis - lovenox full code reason for continued hospitalization: placement Quality Stroke Does the patient have a stroke diagnosis?: No VTE Prior VTE?: No VTE Risk Level:: Medical - moderate - high VTE Device Contraindication: Treatment Not Indicated VTE Drug Contraindication: N/A - Med Ordered
--- NOTE | 2023-11-09 10:18 | MHC.CM.PN ---
Pt has been evaluated by CARE team and is awaiting inpt. psych bed.
[2023-11-09 11:57] VITALS: BP 121/61; PULSE 61; RESP 20; TEMP 36.4; O2SAT 97
== END 2023-11-09 15:58 | DRG 53 ==
PROVIDERS: Admitting Provider Internal Medicine; PCP Internal Medicine Geriatric Medicine; Visit Provider Internal Medicine
DX: G40.319 Generalized idiopathic epilepsy and epileptic syndromes, intractable, without status epilepticus (principal); R45.851 Suicidal ideations; R45.850 Homicidal ideations; E66.9 Obesity, unspecified; F10.20 Alcohol dependence, uncomplicated; F31.9 Bipolar disorder, unspecified; J44.9 Chronic obstructive pulmonary disease, unspecified; F17.210 Nicotine dependence, cigarettes, uncomplicated; Z71.6 Tobacco abuse counseling; Z68.37 Body mass index [BMI] 37.0-37.9, adult; Z71.3 Dietary counseling and surveillance; Z79.899 Other long term (current) drug therapy
CPT/HCPCS: 36415; 70450; 70551; 72170; 80048; 80076; 80185; 82947; 83605; 83735; 85027; 92950; J1165; J1650; J2060; S9485

== ENCOUNTER → 2023-11-03 18:59 | Outpatient (BNV) | payer MEDICAID, SELFPAY | PROVIDERS: Admitting Provider Internal Medicine; Visit Provider Psychiatry & Neurology Neurology | DX: G40.419 Other generalized epilepsy and epileptic syndromes, intractable, without status epilepticus (principal) | CPT/HCPCS: 99222; 99232 ==

== ENCOUNTER → 2023-11-03 18:59 | Outpatient (BNV) | payer MEDICAID, SELFPAY | PROVIDERS: Admitting Provider Internal Medicine; Visit Provider Internal Medicine | DX: G40.319 Generalized idiopathic epilepsy and epileptic syndromes, intractable, without status epilepticus (principal); F31.9 Bipolar disorder, unspecified | CPT/HCPCS: 99223; 99232; 99239 ==

== ENCOUNTER 2023-11-09 12:52 | Inpatient (IN) | payer OTHER, SELFPAY ==
[2023-11-09 16:11] VITALS: BP 145/75; PULSE 64; RESP 20; TEMP 36.8; O2SAT 96; BMI 35.3
--- NOTE | 2023-11-09 19:54 | PC.ADMIT ---
Valerio was transferred back to at 16:11 after [place] [facility] [place] Valerio is A&Ox4, pleasant and cooperative. Skin check done & unremarkable. Prior to his medical stay he had been here on for suicidal ideation. Valerio now presents with a broad affect and his mood is bright. He denies current SI, however he endorses vague HI toward his second oldest brother. These homicidal thoughts come and go. Valerio denies trauma history during interview, writer producer questions if this is consistent with previous reports. Due to Valerio' significant seizure risk he is in a wheelchair with 1:1 sitter for safety. Valerio signed a CV upon admission and subsequently signed a 3 day notice, which will be up on Wednesday. I need to be out of here to see Beetlejuice Beetlejuice this weekend.
[2023-11-09 20:00] VITALS: BP 144/65; PULSE 75; RESP 16; TEMP 36.7; O2SAT 95
[2023-11-09] MEDS: Phenytoin Sodium Extended 100 MG CAPSULE 300 MG PO (20:30)
[2023-11-09] MEDS: OLANZapine 5 MG TABLET PO (20:30)
[2023-11-09] MEDS: Ibuprofen 600 MG TABLET PO (20:31)
[2023-11-09] MEDS: lamoTRIgine 100 MG TABLET 300 MG PO (20:31)
[2023-11-09] MEDS: Melatonin 3 MG TABLET 6 MG PO (20:31)
[2023-11-09] MEDS: clonazePAM 1 MG TABLET PO (20:31)
[2023-11-10 08:00] VITALS: BP 143/80; PULSE 58; RESP 18; TEMP 36.6; O2SAT 98
[2023-11-10] MEDS: Phenytoin Sodium Extended 100 MG CAPSULE 200 MG PO (08:43)
[2023-11-10] MEDS: lamoTRIgine 100 MG TABLET 300 MG PO ×2 (08:43→20:23)
[2023-11-10] MEDS: clonazePAM 1 MG TABLET PO ×2 (08:44→20:24)
[2023-11-10] MEDS: Sertraline HCL 100 MG TABLET PO (08:44)
[2023-11-10] MEDS: Ibuprofen 600 MG TABLET PO ×2 (08:46→20:30)
[2023-11-10 09:08] LABS: Alanine Aminotransferase 20 U/L (0-40); Albumin Level 4.3 g/dL (3.5-5.0); Alkaline Phosphatase 73 U/L (39-117); Anion Gap 14 (12-20); Aspartate Amino Transferase 18 U/L (5-37); Bilirubin Total 0.4 mg/dL (0.0-1.0); Blood Urea Nitrogen 27 mg/dL (9-16); Calcium 9.5 mg/dL (8.4-10.2); Carbon Dioxide 27 mmol/L (22-29); Chloride 103 mmol/L (96-108); Cholesterol 201 mg/dL (<200); Creatinine Clr Calc Pharmacy 154.9; Estimated Glomerular Filt Rate > 60; Glucose Fasting 82 mg/dL (60-99); HDL Cholesterol 76 mg/dL (>40); LDL Cholesterol Calculated 118 mg/dL (<100); Potassium 4.2 mmol/L (3.3-5.1); Sodium 140 mmol/L (135-145); Total Protein 7.8 g/dL (6.5-8.0); Triglycerides 37 mg/dL (<150)
[2023-11-10] MEDS: hydrOXYzine HCL 25 MG TABLET PO ×2 (09:26→16:03)
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
[2023-11-10 19:45] VITALS: BP 132/61; PULSE 63; RESP 14; TEMP 36.8; O2SAT 96
[2023-11-10] MEDS: Phenytoin Sodium Extended 100 MG CAPSULE 300 MG PO (20:24)
[2023-11-10] MEDS: OLANZapine 5 MG TABLET PO (20:24)
[2023-11-10] MEDS: Melatonin 3 MG TABLET 6 MG PO (20:29)
[2023-11-11 08:00] VITALS: BP 144/82; PULSE 73; RESP 16; TEMP 36.6; O2SAT 96
[2023-11-11] MEDS: Phenytoin Sodium Extended 100 MG CAPSULE 200 MG PO (08:32)
[2023-11-11] MEDS: lamoTRIgine 100 MG TABLET 300 MG PO ×2 (08:32→21:01)
[2023-11-11] MEDS: Sertraline HCL 100 MG TABLET PO (08:32)
[2023-11-11] MEDS: clonazePAM 1 MG TABLET PO ×2 (08:32→21:01)
[2023-11-11] MEDS: Ibuprofen 600 MG TABLET PO ×2 (08:57→21:01)
[2023-11-11] MEDS: hydrOXYzine HCL 25 MG TABLET PO ×2 (08:57→15:15)
--- NOTE | 2023-11-11 11:13 | PC.NURSE ---
Pt does not NRT at this time.
--- NOTE | 2023-11-11 12:32 | P.PNPSI_ITS ---
Subjective Subjective Date of Service: 11/11/23 Reason For Visit: SI Subjective Notes: 3 Day Healthcare Proxy: No Guardianship: No Medical Problems Affecting Mental Status: No Interim History: Three day notice to 11/11. Pt on one to one, in a wheelchair to minimize fall risk. He reports feeling improved. Asks team and tw questions about meds-why are voices gone with change in anticonvulsants? Why is Dilantin helping him feel so much clearer in thought? Discussion of effective mgt of epilepsy and importance of treatment compliance. Plans discharge 11/11. I am going to see Beetlejuice . Denies SI,HI, AH,VH. No sx of psychosis or paula are present. Pt denies sx of depression. Medication Compliance: Yes Side effects from medications: No Attending Groups: Intermittent Review of Systems Seizure mgt Medical Review of Systems: unchanged Review of Systems: symptom improvement Review of Systems Review of Systems Yes all other systems are reviewed and are negative (denies) Mental Status Exam Mental Status Exam Patient Appearance: Appropriate Patient Orientation: Person, Place, Time and Situation Level of Consciousness: Alert Patient Behavior: Appropriate, Talkative, Cooperative and Good Eye Contact Mood Description: Appropriate Affect Description: Appropriate Patient Cognition Impaired: No Ability to Follow Directions: Good Speech Pattern: Spontaneous Speech Memory Description: Episodic Impaired Hallucinations: None Delusions: Not Present Thought Process: Goal Oriented Thought Content: positive for Goal Oriented Judgement: Fair Diagnostics Vital Signs (24Hr): Vital Signs - 24 hr 11/10/23 19:45 11/11/23 08:00 Temperature 98.3 F 97.8 F Pulse Rate 63 73 Respiratory Rate 14 16 Blood Pressure 132/61 144/82 H Pulse Oximetry 96 96 Oxygen Delivery Method Room Air BMI result Body Mass Index 35.3 Labs 11/10/23 08:37 Labs: Laboratory Results - last 48 hr 11/10/23 08:37 Sodium 140 Potassium 4.2 Chloride 103 Carbon Dioxide 27 Anion Gap 14 BUN 27 H Creatinine 0.80 Estim Creat Clear Calc 154.9 Estimated GFR > 60 Fasting Glucose 82 Calcium 9.5 Total Bilirubin 0.4 AST 18 ALT 20 Alkaline Phosphatase 73 Total Protein 7.8 Albumin 4.3 Triglycerides 37 Cholesterol 201 H LDL Cholesterol, Calc 118 H HDL Cholesterol 76 Medications Medications Current Medications Acetaminophen (Acetaminophen 325 Mg Tablet) 650 mg PO Q6H PRN PRN Reason: Headache/Pain Mild Scale (1-3) Al Hydroxide/Mg Hydroxide (Magnesium Hydrox/Alum Hydrox 30 Ml Oral.Susp) 30 ml PO Q6H PRN PRN Reason: Heartburn/Nausea Clonazepam (Clonazepam 1 Mg Tablet) 1 mg PO BID [facility] Last Admin: 11/11/23 08:32 Dose: 1 mg Hydroxyzine HCl (Hydroxyzine Hcl 25 Mg Tablet) 25 mg PO Q6H PRN PRN Reason: Anxiety Last Admin: 11/11/23 08:57 Dose: 25 mg Ibuprofen (Ibuprofen 600 Mg Tablet) 600 mg PO Q8H PRN PRN Reason: Pain, Mild (Pain Scale 1-3) Last Admin: 11/11/23 08:57 Dose: 600 mg Lamotrigine (Lamotrigine 100 Mg Tablet) 300 mg PO BID [facility] Last Admin: 11/11/23 08:32 Dose: 300 mg Magnesium Hydroxide (Milk Of Magnesia 30 Ml Oral.Susp) 30 ml PO DAILY PRN PRN Reason: Constipation Melatonin (Melatonin 3 Mg Tablet) 6 mg PO BEDTIME PRN PRN Reason: Insomnia Last Admin: 11/10/23 20:29 Dose: 6 mg Olanzapine (Olanzapine 5 Mg Tablet) 5 mg PO BEDTIME [facility] Last Admin: 11/10/23 20:24 Dose: 5 mg Phenytoin Sodium (Phenytoin Sodium Extended 100 Mg Capsule) 200 mg PO DAILY [facility] Last Admin: 11/11/23 08:32 Dose: 200 mg Phenytoin Sodium (Phenytoin Sodium Extended 100 Mg Capsule) 300 mg PO BEDTIME [facility] Last Admin: 11/10/23 20:24 Dose: 300 mg Sertraline HCl (Sertraline Hcl 100 Mg Tablet) 100 mg PO DAILY [facility] Last Admin: 11/11/23 08:32 Dose: 100 mg Trazodone HCl (Trazodone Hcl 50 Mg Tablet) 50 mg PO BEDTIME MRX1 PRN PRN Reason: Insomnia Allergies Allergies Allergy/AdvReac Type Severity Reaction Status Date / Time erythromycin base Allergy Unknown UNKNOWN Verified 10/26/23 17:11 [Erythromycin Base] cyclobenzaprine AdvReac Intermediate Other Verified 11/03/23 17:43 [From Flexeril] Assessment & Plan Assessment & Plan (1) Bipolar disorder: Status: Acute Code(s): F31.9 - Bipolar disorder, unspecified (2) PTSD (post-traumatic stress disorder): Status: Acute Code(s): F43.10 - Post-traumatic stress disorder, unspecified (3) Alcohol dependence: Status: Acute Code(s): F10.20 - Alcohol dependence, uncomplicated Plan Patient is a 43-year-old male with history of bipolar disorder, PTSD and alcohol use disorder who was transferred to the medical unit on 11/03/23 after having 3 generalized seizures. Patient was medically cleared and referred back to inpatient psychiatric unit due to continued suicidal and homicidal ideation. Plan: 3 day notice 1:1 safety checks d/t walker continue home medications encourage groups obtain collateral discharge planning 11/10- TDN to 11/11. Continue regime Pt reports significant improvement Informed Consent: understands Reason for continued inpatient stay Substantial Risk for: stable for discharge Time Spent With Patient Time: Total time managing care of this patient today ____ minutes.
[2023-11-11 20:00] VITALS: BP 140/64; PULSE 67; RESP 15; TEMP 36.8; O2SAT 99
[2023-11-11] MEDS: Phenytoin Sodium Extended 100 MG CAPSULE 300 MG PO (21:00)
[2023-11-11] MEDS: OLANZapine 5 MG TABLET PO (21:01)
[2023-11-11] MEDS: Melatonin 3 MG TABLET 6 MG PO (21:03)
[2023-11-12] MEDS: Phenytoin Sodium Extended 100 MG CAPSULE 200 MG PO (09:05)
[2023-11-12] MEDS: Sertraline HCL 100 MG TABLET PO (09:05)
[2023-11-12] MEDS: lamoTRIgine 100 MG TABLET 300 MG PO (09:05)
[2023-11-12] MEDS: clonazePAM 1 MG TABLET PO (09:06)
[2023-11-12 09:36] LABS: Glucose, Whole Blood 131 mg/dL (60-115)
--- NOTE | 2023-11-12 09:53 | P.DS_ITS ---
DS: Providers Provider Date of Service: 11/12/23 Date of admission: 11/09/23 12:52 Date of discharge: 11/12/23 Primary care physician: Unknown Physician Admitting clinician: Zayra Alba Attending physician on admission: Miguel Holden Consults: 11/12/23 09:15 Consult to Hospitalist Routine Comment: Consulting Provider: Hospitalist Reason For Exam: seizure activity this a.mAren maharaj Attending physician on discharge: Miguel Holden Discharging clinician: Isabel Andrews DS: Diagnosis Discharge Diagnosis (1) Bipolar disorder: Status: Acute (2) PTSD (post-traumatic stress disorder): Status: Acute (3) Alcohol dependence: Status: Acute DS: Medications Discharge Medications Home Medications: Previous Rx's ?Medication ?Instructions ?Recorded clonazepam 1 mg tablet 1 mg PO BID #14 tabs 11/12/23 hydroxyzine HCl 25 mg tablet 25 mg PO Q6H PRN Anxiety #60 tabs 11/12/23 ibuprofen 600 mg tablet 600 mg PO Q8H PRN Pain, Mild (Pain 11/12/23 Scale 1-3) #60 tabs lamotrigine 100 mg tablet 300 mg (3 x 100 mg) PO BID #180 11/12/23 tabs melatonin 3 mg tablet 6 mg (2 x 3 mg) PO BEDTIME PRN 11/12/23 Insomnia #60 tabs olanzapine 5 mg tablet 5 mg PO BEDTIME #30 tabs 11/12/23 phenytoin sodium extended 100 mg 200 mg (2 x 100 mg) PO DAILY #60 11/12/23 capsule (Dilantin Extended) caps phenytoin sodium extended 100 mg 300 mg (3 x 100 mg) PO BEDTIME #90 11/12/23 capsule (Dilantin Extended) caps sertraline 100 mg tablet 100 mg PO DAILY #30 tabs 11/12/23 trazodone 50 mg tablet 50 mg PO BEDTIME MRX1 PRN Insomnia 11/12/23 #30 tabs Mental Status Exam Mental Status Exam Patient Appearance: Fatigued Level of Consciousness: Disoriented (post seizure) Data Data Completed and Pending Completed studies during hospitalization [Text1]: 11/10/23 11/12/23 08:37 09:33 Sodium 140 Potassium 4.2 Chloride 103 Carbon Dioxide 27 Anion Gap 14 BUN 27 H Creatinine 0.80 Estim Creat Clear Calc 154.9 Estimated GFR > 60 POC Glucose 131 H Fasting Glucose 82 Calcium 9.5 Total Bilirubin 0.4 AST 18 ALT 20 Alkaline Phosphatase 73 Total Protein 7.8 Albumin 4.3 Triglycerides 37 Cholesterol 201 H LDL Cholesterol, Calc 118 H HDL Cholesterol 76 DS: Summary Hospital Course Hospital Course: Admission to adult psychiatry to address symptoms of PTSD, Bipolar Disorder, Alcohol Use Disorder exacerbation. Pt was admitted 10/28/23 to 11/03/23 and transferred to medicine due to ongoing seizure activity and unstable epilepsy. He was stabilized on medicine where dilantin was started, keppra was stopped. Upon return to psychiatry he was kept on one to one, falls precautions. Mental status improved, he denied SI,HI,AH, VH and symptoms continued to resolve. He signed a three day notice of intent and planned to discharge to home/family on 11/11. On 11/11 team reported two petit mal seizure episodes and then a grand mal seizure where rapid response was implemented. Pt to transfer to telemetry Status at Discharge Functional status at discharge: bed bound Overall status at discharge: patient is not back to baseline Time Spent with Patient Time attestation: Total time managing care of this patient today ____ minutes. Time spent: Less than 30 minutes Discharge Plan Discharge Anticipated Discharge Date/Time: 11/12/23 12:00 Patient Disposition: Xfer Acute Care Hospital Discharge Diagnosis: PTSD Bipolar Disorder Alcohol Use Disorder Epilepsy Referrals: Manuel MULLINS [Other] - 11/13/23 (fax- [phone] VNA is to restart at D/C- requested daily visits, a locked box to store medication and a sr. social media & mobile manager to add in treatment compliance. ) Physician,Unknown J [Primary Care Provider] - 1 Week Discharge Medications: New sertraline 100 mg Tablet 100 mg PO DAILY Qty: 30 0RF olanzapine 5 mg Tablet 5 mg PO BEDTIME Qty: 30 0RF clonazepam 1 mg Tablet 1 mg PO BID Qty: 14 4RF phenytoin sodium extended [Dilantin Extended] 100 mg Capsule 200 mg PO DAILY Qty: 60 0RF phenytoin sodium extended [Dilantin Extended] 100 mg Capsule 300 mg PO BEDTIME Qty: 90 0RF hydroxyzine HCl 25 mg Tablet 25 mg PO Q6H PRN (Reason: Anxiety) Qty: 60 0RF ibuprofen 600 mg Tablet 600 mg PO Q8H PRN (Reason: Pain, Mild (Pain Scale 1-3)) Qty: 60 0RF lamotrigine 100 mg Tablet 300 mg PO BID Qty: 180 0RF trazodone 50 mg Tablet 50 mg PO BEDTIME MRX1 PRN (Reason: Insomnia) Qty: 30 0RF melatonin 3 mg Tablet 6 mg PO BEDTIME PRN (Reason: Insomnia) Qty: 60 0RF Discontinued acetaminophen 325 mg Tablet 650 mg PO Q8H PRN (Reason: Headache/Pain Mild Scale (1-3)) Qty: 0 0RF trazodone 50 mg Tablet 50 mg PO BEDTIME MRX1 PRN (Reason: Insomnia) Qty: 0 0RF sertraline 100 mg Tablet 100 mg PO DAILY Qty: 0 0RF melatonin 3 mg Tablet 6 mg PO BEDTIME PRN (Reason: Insomnia) Qty: 0 0RF hydroxyzine HCl 25 mg Tablet 25 mg PO Q6H PRN (Reason: Anxiety) Qty: 0 0RF ibuprofen 600 mg Tablet 600 mg PO Q8H PRN (Reason: Pain, Mild (Pain Scale 1-3)) Qty: 0 0RF lamotrigine 100 mg Tablet 300 mg PO BID Qty: 0 0RF clonazepam 1 mg tablet 1 mg PO BID cyclobenzaprine 10 mg Tablet 10 mg PO TID PRN (Reason: Muscle Spasm) olanzapine 5 mg Tablet 5 mg PO BEDTIME phenytoin sodium extended [Dilantin Extended] 100 mg Capsule 200 mg PO DAILY Qty: 0 0RF phenytoin sodium extended [Dilantin Extended] 100 mg Capsule 300 mg PO BEDTIME Qty: 0 0RF Discharge Orders: Discharge Order (Routine); Ordered 11/12/23 Ordered By: Isabel Andrews Diet: Advance to usual diet Activity on Discharge: As tolerated Stand Alone Forms: Patient Portal Discharge page, Community Support Print Language: Faroese Care Plan Goals: Mood and Behavioral Stabilization Abstinence from alcohol Seizure control Health Concerns: Mood and Behavioral Stabilization Abstinence from alcohol Management of epilepsy Plan of Treatment: Attend scheduled appointments Take medications as directed Abstain from alcohol Assessment: Petit mal, grand mal seizure this a.m. with rapid response. Discharge, admit to telemetry per Dr. Hastings Discharge Date/Time: 11/12/23 09:50
--- NOTE | 2023-11-12 09:54 | PC.NURSE ---
Valerio was sitting in kitchen and reported petit mal seizures which were evident to this nurse. This was reported to Rubi Schaeffer ASSEMBLER CAMPER. After he was unable to hold water cup for meds, spilling it on himself, he was returned to room via wheelchair. Shortly afterwards nursing was called to the room as he was actively seizing. The seizure lasted approximately 1 minute. PORTABLE GRINDING MACHINE OPERATOR was called in the interim. In the immediate post ictal phase, he had color change and was repositioned LLR, with improvement. PORTABLE GRINDING MACHINE OPERATOR arrived at 0928. BP195/96, sat 80%, O2 applied 4L. 0930 sat improving, bp 170/72. HR 77. POC 131, EKG ordered done at 0935. 144/65 HR 81, sat98. 0949 transfered to medical floor.
== END 2023-11-12 09:50 | disposition short-term general hospital (02) | DRG 753 ==
PROVIDERS: Admitting Provider Social Worker; Visit Provider Social Worker
DX: F31.9 Bipolar disorder, unspecified (principal); R45.851 Suicidal ideations; R45.850 Homicidal ideations; G40.909 Epilepsy, unspecified, not intractable, without status epilepticus; F43.10 Post-traumatic stress disorder, unspecified; F17.210 Nicotine dependence, cigarettes, uncomplicated; F10.20 Alcohol dependence, uncomplicated; J44.9 Chronic obstructive pulmonary disease, unspecified; Z71.6 Tobacco abuse counseling; Z79.899 Other long term (current) drug therapy
CPT/HCPCS: 36415; 80053; 80061; 82947

== ENCOUNTER → 2023-11-09 12:52 | Outpatient (BNV) | payer OTHER, SELFPAY | PROVIDERS: Admitting Provider Social Worker; Visit Provider Registered Nurse | DX: F31.4 Bipolar disorder, current episode depressed, severe, without psychotic features (principal); F10.20 Alcohol dependence, uncomplicated; F43.11 Post-traumatic stress disorder, acute | CPT/HCPCS: 99231; 99232; 99233 ==

== ENCOUNTER 2023-11-12 09:55 | Inpatient (IN) | payer MEDICAID, OTHER, SELFPAY ==
--- NOTE | 2023-11-12 | ECG_ITS ---
Test Reason : seizures Blood Pressure : / mmHG Vent. Rate : 081 BPM Atrial Rate : 081 BPM P-R Int : 190 ms QRS Dur : 102 ms QT Int : 400 ms P-R-T Axes : 043 008 040 degrees QTc Int : 464 ms Normal sinus rhythm Possible Left atrial enlargement Borderline ECG When compared with ECG of 07-OCT-2020 09:04, MS interval has decreased QT has lengthened Referred By: Monique Dick Electronically Signed By:SHALINI GALEAS
--- NOTE | 2023-11-12 10:37 | PM.IMHP ---
History of Present Illness Date of Service: 11/12/23 Attending physician on admission: Ole Tiwari Chief Complaint: seizure This is a 43M PMH intractable seizures, copd, etoh dependence, bipolar, ptsd, obesity, admitted to inpatient psychiatry for SI and HI, admitted to the medical service 11/02-11/08 for seizures. He had MRI which showed mild diffuse volume loss of the cerebellum and moderate prominence of CSF space posterior to the cerebellum. His medications were adjusted to Dilantin 200 mg in the morning and 300 mg at bedtime. Keppra and Depakote were discontinued. Lamictal was continued. A rapid response was called in the morning of November 11 due to seizure activity. Seizure lasted approximately 1 minute and then terminated on its own. Patient remained postictal, was hypoxic in the acute postictal phase but improved spontaneously. The decision was made to transfer him to the medical floor for further management. Review of Systems Review of Systems: unable to obtain full ROS due to postical state [facility] Medical History COPD (chronic obstructive pulmonary disease) Alcohol dependence Bipolar disorder Intractable epilepsy Social History Household Members: Family Household Members Other:: Brothers Housing: House Do you presently have visiting nurse or other home services: Yes Alcohol intake: current Alcohol intake frequency: holidays/special occasions only Alcohol type: beer and hard liquor Comment: sitter Patient Tobacco Use Status: Current everyday Tobacco user Tobacco use type: Cigarette Cigarette Packs Per Day: 0.5 Cigarettes Per Day: 10.0 Smoked in Last 30 Days: Yes e-Cigarette/Vaping Use: Never Used Patient Interested in Nicotine Replacement: No Patient Given Instructions on How to Stop Smoking: Yes Date Education Initiated: 11/12/23 Second Hand Smoke Exposure: No Use of substances other than those prescribed or required for medical reasons: No Advance Directives: No Advance Directives Information Provided: No Do you have a plan to hurt others: No Plan Recently lost weight without trying: No Nutrition Risks: No Nutritional Risk service: No Sexual orientation: Straight/Heterosexual Meds Allergies Allergy/AdvReac Type Severity Reaction Status Date / Time erythromycin base Allergy Unknown UNKNOWN Verified 10/26/23 17:11 [Erythromycin Base] cyclobenzaprine AdvReac Intermediate Other Verified 11/03/23 17:43 [[facility] Active Medications: Current Medications Acetaminophen (Acetaminophen 325 Mg Tablet) 650 mg PO Q6H PRN PRN Reason: Pain, Mild (Pain Scale 1-3), fever or headache Calcium Carbonate (Calcium Carbonate 750 Mg Tab.Chew) 750 mg PO Q4H PRN PRN Reason: Heartburn Clonazepam (Clonazepam 1 Mg Tablet) 1 mg PO BID MISSY Hydroxyzine HCl (Hydroxyzine Hcl 25 Mg Tablet) 25 mg PO Q6H PRN PRN Reason: Anxiety Lamotrigine (Lamotrigine 100 Mg Tablet) 300 mg PO BID MISSY Lorazepam (Lorazepam 2 Mg/Ml Vial) 2 mg IVPUSH Q1H PRN PRN Reason: Seizures Magnesium Hydroxide (Milk Of Magnesia 30 Ml Oral.Susp) 30 ml PO DAILY PRN PRN Reason: Constipation Melatonin (Melatonin 3 Mg Tablet) 6 mg PO BEDTIME PRN PRN Reason: Insomnia Olanzapine (Olanzapine 5 Mg Tablet) 5 mg PO BEDTIME MISSY Phenytoin Sodium (Phenytoin Sodium Extended 100 Mg Capsule) 200 mg PO DAILY MISSY Phenytoin Sodium (Phenytoin Sodium Extended 100 Mg Capsule) 300 mg PO BEDTIME MISSY Sertraline HCl (Sertraline Hcl 100 Mg Tablet) 100 mg PO DAILY MISSY Sodium Chloride (0.9 % Sodium Chloride Flush 3 Ml Syringe) 3 ml IVFLUSH QSHIFT MISSY Trazodone HCl (Trazodone Hcl 50 Mg Tablet) 50 mg PO BEDTIME MRX1 PRN PRN Reason: Insomnia Physical Exam Const: Other: potsictal Nutritional Appearance: obese Resp: Effort & Inspection: no respiratory distress and no use of accessory muscles GI: Inspection: No distended Palpation (GI): Soft to palpation Neuro: Other: unable to assess as above Results Labs 11/12/23 11:37 11/12/23 11:37 Assessment and Plan (1) Breakthrough seizure: Status: Acute Plan This is a 43 year old male with history of poorly-controlled seizure disorder, bipolar, PTSD, COPD, alcohol dependence admitted to and 5 for management of SI and HI transferred to the medical floor due to breakthrough seizures breakthrough seizure resume baseline meds prn ativan IV for seizure activity check dilatin and lamotrigine levels Neuro checks Seizure, aspiration precautions Neurology consult - will discuss need for med adjustment unlikely to fully suppress petit mals, goal to minimize generalization as per previous documentation copd no acute exacerbation no inhalers on med list etoh dependence no withdrawal bipolar with SI and HI continue mood stabilizers 1:1 admitted from psych floor, will need care team eval when medically cleared obesity weight loss recommended dvt ppx - mechanical Patient will likely require 2 midnight stay in the hospital for management of breakthrough seizure, difficult to control epilepsy requiring likely med adjustment and specialist evaluation Quality Stroke Does the patient have a stroke diagnosis?: No VTE Prior VTE?: No VTE Risk Level:: Medical - moderate - high VTE Device Contraindication: N/A - Device Ordered VTE Drug Contraindication: Treatment Not Indicated
--- NOTE | 2023-11-12 10:42 | PHA.MEDREC ---
Pharmacy Consult ? Medication Reconciliation Pharmacy has completed the medication reconciliation.
[2023-11-12 10:59] VITALS: BMI 36.4
[2023-11-12 11:46] LABS: MANUAL DIFF FLAG NO
[2023-11-12 11:53] LABS: Basophils Percent Auto 0.6 % (0-2); Eosinophils Absolute Auto 0.2 X10*3/uL (0.0-0.4); Eosinophils Percent Auto 2.8 % (0-4); Hematocrit 39.7 % (42.0-52.0); Hemoglobin 13.3 g/dl (14.0-18.0); Imm Gran Abs Auto 0.02 X10*3/uL (0.00-0.03); Imm Gran Pct Auto 0.4 % (0.0-0.4); Lymphocytes Percent Auto 17.9 % (20-40); Mean Corpuscular HGB Conc 33.5 g/dl (31.0-36.0); Mean Corpuscular Hemoglobin 31.2 pg (27.0-33.0); Mean Corpuscular Volume 93.2 fL (80.0-98.0); Mean Platelet Volume 10.5 fL (9.4-12.4); Monocytes Absolute Auto 0.4 X10*3/uL (0.1-1.2); Monocytes Percent Auto 7.8 % (2-11); Neutrophils Absolute Auto 3.8 x10*3/uL (2.0-8.3); Neutrophils Percent Auto 70.5 % (45-73); Platelet Count 166 X10*3/uL (160-400); Red Blood Count 4.26 X10*6/uL (4.60-5.80); Red Cell Distribution Width 14.1 % (11.0-16.0); White Blood Count 5.4 X10*3/uL (4.8-10.8)
[2023-11-12] MEDS: hydrOXYzine HCL 25 MG TABLET PO (11:57)
[2023-11-12 12:11] LABS: Phenytoin Dilantin 18.4 ug/mL (10.0-20.0)
[2023-11-12 12:13] LABS: Alanine Aminotransferase 17 U/L (0-40); Albumin Level 3.8 g/dL (3.5-5.0); Alkaline Phosphatase 73 U/L (39-117); Anion Gap 12 (12-20); Aspartate Amino Transferase 18 U/L (5-37); Bilirubin Total 0.2 mg/dL (0.0-1.0); Blood Urea Nitrogen 23 mg/dL (9-16); Calcium 9.3 mg/dL (8.4-10.2); Carbon Dioxide 27 mmol/L (22-29); Chloride 106 mmol/L (96-108); Creatinine Clr Calc Pharmacy 151.8; Estimated Glomerular Filt Rate > 60; Glucose Random 73 mg/dL (60-115); Potassium 4.4 mmol/L (3.3-5.1); Sodium 141 mmol/L (135-145)
[2023-11-12 15:53] VITALS: BP 118/58; PULSE 65; RESP 20; TEMP 36.4; O2SAT 94
[2023-11-12] MEDS: cloBAZam 10 MG TABLET 5 MG PO (17:21)
[2023-11-12] MEDS: Acetaminophen 325 MG TABLET 650 MG PO (17:21)
[2023-11-12 17:28] VITALS: BP 143/67; PULSE 65; RESP 18; TEMP 36.7; O2SAT 97
[2023-11-12 19:43] VITALS: BP 136/66; PULSE 72; RESP 20; TEMP 36.9; O2SAT 96
[2023-11-12] MEDS: lamoTRIgine 100 MG TABLET 300 MG PO (20:19)
[2023-11-12] MEDS: OLANZapine 5 MG TABLET PO (20:19)
[2023-11-12] MEDS: Ibuprofen 400 MG TABLET PO (20:19)
[2023-11-12] MEDS: Melatonin 3 MG TABLET 6 MG PO (20:19)
[2023-11-12] MEDS: Phenytoin Sodium Extended 100 MG CAPSULE 300 MG PO (20:19)
[2023-11-12] MEDS: 0.9 % Sodium Chloride Flush 3 ML SYRINGE IVFLUSH (20:20)
[2023-11-12 23:58] VITALS: BP 140/63; PULSE 62; RESP 21; TEMP 36.7; O2SAT 96
[2023-11-13] VITALS (7 sets, daily range): BP systolic 95–153; BP diastolic 33–70; PULSE 60–86; RESP 18–23; TEMP 36.1–36.8; O2SAT 93–97
[2023-11-13] MEDS: LORazepam 2 MG/ML VIAL IVPUSH (05:02)
--- NOTE | 2023-11-13 05:02 | PM.EVENT ---
Event Note Date of Service: 11/13/23 Event Note: generalized seizure this AM about 455am, lasted about 20 seconds. now postictal. Time Spent With Patient Time: Total time managing care of this patient today ____ minutes.
[2023-11-13 05:04] LABS: Glucose, Whole Blood 95 mg/dL (60-115)
--- NOTE | 2023-11-13 05:05 | PC.NURSE ---
Approx 0456 to 0457 pt began seizing. PREPARED FOODS SERVICE TEAM MEMBER called, ativan administered. Pt postictal, bed alarm on, camera in room, call pham within reach.
[2023-11-13] MEDS: lamoTRIgine 100 MG TABLET 300 MG PO ×2 (08:48→20:15)
[2023-11-13] MEDS: Sertraline HCL 100 MG TABLET PO (08:48)
[2023-11-13] MEDS: cloBAZam 10 MG TABLET 5 MG PO ×2 (08:48→20:15)
[2023-11-13] MEDS: Ibuprofen 400 MG TABLET PO ×2 (08:48→18:02)
[2023-11-13] MEDS: hydrOXYzine HCL 25 MG TABLET PO (08:49)
[2023-11-13] MEDS: Phenytoin Sodium Extended 100 MG CAPSULE 200 MG PO (08:49)
[2023-11-13] MEDS: 0.9 % Sodium Chloride Flush 3 ML SYRINGE IVFLUSH ×2 (08:50→16:00)
--- NOTE | 2023-11-13 09:19 | P.CNNE_ITS ---
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 I have recently stopped his Keppra and Depakote as they did not provide appropriate coverage for seizures. It was changed to Dilantin while lamotrigine was continued. He also has been taking clonazepam twice a day. He continued to have breakthrough seizures, every 2-3 days. Some of the possible medicines a not available in hospital pharmacy and might be difficult for him to obtain even as an outpatient. Review of Systems 2 Review of Systems: No new issues. [facility] Past Medical History Medical History COPD (chronic obstructive pulmonary disease) Alcohol dependence Bipolar disorder Intractable epilepsy Social History Social History Household Members: Family Household Members Other:: Brothers Housing: House Do you presently have visiting nurse or other home services: Yes Alcohol intake: current Alcohol intake frequency: holidays/special occasions only Alcohol type: beer and hard liquor Comment: sitter Patient Tobacco Use Status: Current everyday Tobacco user Tobacco use type: Cigarette Cigarette Packs Per Day: 0.5 Cigarettes Per Day: 10.0 Smoked in Last 30 Days: Yes e-Cigarette/Vaping Use: Never Used Patient Interested in Nicotine Replacement: No Patient Given Instructions on How to Stop Smoking: Yes Date Education Initiated: 11/12/23 Second Hand Smoke Exposure: No Use of substances other than those prescribed or required for medical reasons: No Currently Displaying Signs/Symptoms of Drug Intoxication Withdrawal: No Advance Directives: No Advance Directives Information Provided: No Do you have a plan to hurt others: No Plan Recently lost weight without trying: No Nutrition Risks: No Nutritional Risk service: No Sexual orientation: Straight/Heterosexual Meds Allergies Allergy/AdvReac Type Severity Reaction Status Date / Time erythromycin base Allergy Unknown UNKNOWN Verified 10/26/23 17:11 [Erythromycin Base] cyclobenzaprine AdvReac Intermediate Other Verified 11/03/23 17:43 [From Flexeril] Active Medications: Current Medications Acetaminophen (Acetaminophen 325 Mg Tablet) 650 mg PO Q6H PRN PRN Reason: Pain, Mild (Pain Scale 1-3), fever or headache Last Admin: 11/12/23 17:21 Dose: 650 mg Calcium Carbonate (Calcium Carbonate 750 Mg Tab.Chew) 750 mg PO Q4H PRN PRN Reason: Heartburn Clobazam (Clobazam 10 Mg Tablet) 5 mg PO BID [facility] Last Admin: 11/13/23 08:48 Dose: 5 mg Hydroxyzine HCl (Hydroxyzine Hcl 25 Mg Tablet) 25 mg PO Q6H PRN PRN Reason: Anxiety Last Admin: 11/13/23 08:49 Dose: 25 mg Ibuprofen (Ibuprofen 400 Mg Tablet) 400 mg PO BID PRN PRN Reason: Pain, Mild (Pain Scale 1-3) Last Admin: 11/13/23 08:48 Dose: 400 mg Lamotrigine (Lamotrigine 100 Mg Tablet) 300 mg PO BID [facility] Last Admin: 11/13/23 08:48 Dose: 300 mg Lorazepam (Lorazepam 2 Mg/Ml Vial) 2 mg IVPUSH Q1H PRN PRN Reason: Seizures Last Admin: 11/13/23 05:02 Dose: 2 mg Magnesium Hydroxide (Milk Of Magnesia 30 Ml Oral.Susp) 30 ml PO DAILY PRN PRN Reason: Constipation Melatonin (Melatonin 3 Mg Tablet) 6 mg PO BEDTIME PRN PRN Reason: Insomnia Last Admin: 11/12/23 20:19 Dose: 6 mg Olanzapine (Olanzapine 5 Mg Tablet) 5 mg PO BEDTIME [facility] Last Admin: 11/12/23 20:19 Dose: 5 mg Phenytoin Sodium (Phenytoin Sodium Extended 100 Mg Capsule) 200 mg PO DAILY [facility] Last Admin: 11/13/23 08:49 Dose: 200 mg Phenytoin Sodium (Phenytoin Sodium Extended 100 Mg Capsule) 300 mg PO BEDTIME [facility] Last Admin: 11/12/23 20:19 Dose: 300 mg Sertraline HCl (Sertraline Hcl 100 Mg Tablet) 100 mg PO DAILY [facility] Last Admin: 11/13/23 08:48 Dose: 100 mg Sodium Chloride (0.9 % Sodium Chloride Flush 3 Ml Syringe) 3 ml IVFLUSH QSHIFT [facility] Last Admin: 11/13/23 08:50 Dose: 3 ml Trazodone HCl (Trazodone Hcl 50 Mg Tablet) 50 mg PO BEDTIME MRX1 PRN PRN Reason: Insomnia Physical Exam 2 Vital Signs: Vital Signs: Last Vital Signs Temp 97.3 F 11/13/23 07:44 Pulse 64 11/13/23 07:44 Resp 18 11/13/23 07:44 BP 135/65 11/13/23 07:44 Pulse Ox 96 11/13/23 07:44 O2 Del Method Room Air 11/13/23 07:44 BMI result Body Mass Index 36.4 Neuro: Other: He is alert and awake with normal spontaneity of speech fluency comprehension and affect. He was taking his breakfast when I saw him. Results Labs 11/12/23 11:37 11/12/23 11:37 Labs: Short CBC 11/12/23 Range/Units 11:37 WBC 5.4 (4.8-10.8) X10*3/uL Hgb 13.3 L (14.0-18.0) g/dl Hct 39.7 L (42.0-52.0) % Plt Count 166 (160-400) X10*3/uL BMP 11/12/23 11:37 Sodium 141 Potassium 4.4 Chloride 106 Carbon Dioxide 27 BUN 23 H Creatinine 0.83 Calcium 9.3 Liver Function 11/12/23 Range/Units 11:37 Total Bilirubin 0.2 (0.0-1.0) mg/dL AST 18 (5-37) U/L ALT 17 (0-40) U/L Alkaline Phosphatase 73 (39-117) U/L Albumin 3.8 (3.5-5.0) g/dL Assessment and Plan (1) Intractable epilepsy: Qualifiers: Epilepsy type: generalized idiopathic Status epilepticus: without status epilepticus Qualified Code(s): 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 I recommend continuing this dose of phenytoin and lamotrigine and adding lacosamide 100 mg twice a day. Procedures Date of Service Date of Service: 11/13/23
--- NOTE | 2023-11-13 11:27 | HO.PM.IMPN ---
Subjective Subjective Date of Service: 11/13/23 Interval History: seen and examined this morning follow up for breakthrough seizure had seizure this am around 5 am was awake, alert and oriented during my evaluation no specific complaints Review of Systems Review of Systems: Yes all other systems are reviewed and are negative Constitutional Constitutional: Denies chills and Denies fever(s) ENT Ears, Nose, Mouth, and Throat: Denies dizziness Cardiovascular Cardiovascular: Denies chest pain, Denies palpitations and Denies dyspnea Respiratory Respiratory: Denies cough and Denies dyspnea Neurologic Neurologic: Denies dizziness Endocrine Endocrine: Denies palpitations Physical Exam Vital Signs: Vital Signs: Last Vital Signs Temp 97.3 F 11/13/23 07:44 Pulse 64 11/13/23 07:44 Resp 18 11/13/23 07:44 BP 135/65 11/13/23 07:44 Pulse Ox 96 11/13/23 07:44 O2 Del Method Room Air 11/13/23 07:44 BMI result Body Mass Index 36.4 Const: General: cooperative, comfortable, no acute distress, alert and awake Nutritional Appearance: overweight Orientation/consciousness: patient oriented x3 Resp: Effort & Inspection: normal respiratory effort, able to speak in complete sentences, no respiratory distress and no use of accessory muscles Auscultation: clear to auscultation bilaterally Cardio: Rate: regular rate GI: Inspection: No distended Palpation (GI): Soft to palpation Neuro: General: patient oriented x3, moves all extremities and CN's II-XI intact bilaterally Objective Data Active Medications Acetaminophen (Acetaminophen 325 Mg Tablet) 650 mg PO Q6H PRN PRN Reason: Pain, Mild (Pain Scale 1-3), fever or headache Last Admin: 11/12/23 17:21 Dose: 650 mg Documented By: TIA Calcium Carbonate (Calcium Carbonate 750 Mg Tab.Chew) 750 mg PO Q4H PRN PRN Reason: Heartburn Clobazam (Clobazam 10 Mg Tablet) 5 mg PO BID MISSY Last Admin: 11/13/23 08:48 Dose: 5 mg Documented By: FRANCES Hydroxyzine HCl (Hydroxyzine Hcl 25 Mg Tablet) 25 mg PO Q6H PRN PRN Reason: Anxiety Last Admin: 11/13/23 08:49 Dose: 25 mg Documented By: FRANCES Ibuprofen (Ibuprofen 400 Mg Tablet) 400 mg PO BID PRN PRN Reason: Pain, Mild (Pain Scale 1-3) Last Admin: 11/13/23 08:48 Dose: 400 mg Documented By: FRANCES Lamotrigine (Lamotrigine 100 Mg Tablet) 300 mg PO BID [facility] Last Admin: 11/13/23 08:48 Dose: 300 mg Documented By: FRANCES Lorazepam (Lorazepam 2 Mg/Ml Vial) 2 mg IVPUSH Q1H PRN PRN Reason: Seizures Last Admin: 11/13/23 05:02 Dose: 2 mg Documented By: ASHLEY Magnesium Hydroxide (Milk Of Magnesia 30 Ml Oral.Susp) 30 ml PO DAILY PRN PRN Reason: Constipation Melatonin (Melatonin 3 Mg Tablet) 6 mg PO BEDTIME PRN PRN Reason: Insomnia Last Admin: 11/12/23 20:19 Dose: 6 mg Documented By: ASHLEY Olanzapine (Olanzapine 5 Mg Tablet) 5 mg PO BEDTIME [facility] Last Admin: 11/12/23 20:19 Dose: 5 mg Documented By: ASHLEY Phenytoin Sodium (Phenytoin Sodium Extended 100 Mg Capsule) 200 mg PO DAILY [facility] Last Admin: 11/13/23 08:49 Dose: 200 mg Documented By: FRANCES Phenytoin Sodium (Phenytoin Sodium Extended 100 Mg Capsule) 300 mg PO BEDTIME [facility] Last Admin: 11/12/23 20:19 Dose: 300 mg Documented By: ASHLEY Sertraline HCl (Sertraline Hcl 100 Mg Tablet) 100 mg PO DAILY [facility] Last Admin: 11/13/23 08:48 Dose: 100 mg Documented By: FRANCES Sodium Chloride (0.9 % Sodium Chloride Flush 3 Ml Syringe) 3 ml IVFLUSH QSHIFT [facility] Last Admin: 11/13/23 08:50 Dose: 3 ml Documented By: FRANCES Trazodone HCl (Trazodone Hcl 50 Mg Tablet) 50 mg PO BEDTIME MRX1 PRN PRN Reason: Insomnia Labs 11/12/23 11:37 11/12/23 11:37 Labs: Laboratory Results - last 24 hr 11/12/23 11/13/23 11:37 05:00 MCV 93.2 MCH 31.2 MCHC 33.5 RDW 14.1 Plt Count 166 MPV 10.5 Immature Gran % (Auto) 0.4 Neut % (Auto) 70.5 Lymph % (Auto) 17.9 L [place] % (Auto) 7.8 Eos % (Auto) 2.8 Baso % (Auto) 0.6 Lymph # (Auto) 1.0 L [place] # (Auto) 0.4 Eos # (Auto) 0.2 Baso # (Auto) 0.0 Abs Immat Gran (auto) 0.02 Absolute Neuts (auto) 3.8 Absolute Nucleated RBC 0.000 Nucleated RBC % (auto) 0.0 Anion Gap 12 Estim Creat Clear Calc 151.8 Estimated GFR > 60 POC Glucose 95 Random Glucose 73 Calcium 9.3 Total Bilirubin 0.2 AST 18 ALT 17 Alkaline Phosphatase 73 Total Protein 7.0 Albumin 3.8 Phenytoin 18.4 Assessment and Plan (1) Breakthrough seizure: Status: Acute Plan This is a 43 year old male with history of poorly-controlled seizure disorder, bipolar, PTSD, COPD, alcohol dependence admitted to and 5 for management of SI and HI transferred to the medical floor due to breakthrough seizures breakthrough seizure resume baseline meds lamictal and dilantin prn ativan IV for seizure activity dilatin level therapeutic 18.4, lamotrigine level pending Neuro checks Seizure, aspiration precautions Neurology following - recommend to add clobazam 5 bid (not on formulary but is available by pharmacy order); klonopin stopped unlikely to fully suppress petit mals, goal to minimize generalization as per previous documentation copd no acute exacerbation no inhalers on med list etoh dependence no withdrawal bipolar with SI and HI continue mood stabilizers 1:1 admitted from psych floor, will need care team eval when medically cleared obesity weight loss recommended dvt ppx - mechanical Patient will likely require 2 midnight stay in the hospital for management of breakthrough seizure, difficult to control epilepsy requiring likely med adjustment and specialist evaluation Quality Stroke Does the patient have a stroke diagnosis?: No VTE Prior VTE?: No VTE Risk Level:: Medical - moderate - high VTE Device Contraindication: N/A - Device Ordered VTE Drug Contraindication: Treatment Not Indicated
[2023-11-13] MEDS: Acetaminophen 325 MG TABLET 650 MG PO ×2 (13:25→20:18)
[2023-11-13] MEDS: Phenytoin Sodium Extended 100 MG CAPSULE 300 MG PO (20:15)
[2023-11-13] MEDS: OLANZapine 5 MG TABLET PO (20:15)
[2023-11-14] MEDS: 0.9 % Sodium Chloride Flush 3 ML SYRINGE IVFLUSH ×4 (00:40→21:20)
[2023-11-14 03:32] VITALS: BP 114/50; PULSE 65; RESP 22; TEMP 36.3; O2SAT 96
[2023-11-14] MEDS: Sertraline HCL 100 MG TABLET PO (07:45)
[2023-11-14] MEDS: lamoTRIgine 100 MG TABLET 300 MG PO ×2 (07:45→21:19)
[2023-11-14] MEDS: cloBAZam 10 MG TABLET 5 MG PO ×2 (07:45→21:20)
[2023-11-14] MEDS: Phenytoin Sodium Extended 100 MG CAPSULE 200 MG PO (07:45)
[2023-11-14 07:46] VITALS: BP 116/63; PULSE 58
[2023-11-14] MEDS: Acetaminophen 325 MG TABLET 650 MG PO ×2 (07:48→21:20)
[2023-11-14 07:59] VITALS: BP 115/57; PULSE 53; RESP 20; TEMP 37.2; O2SAT 98
--- NOTE | 2023-11-14 10:49 | HO.PM.IMPN ---
Subjective Subjective Date of Service: 11/14/23 Interval History: seen and examined this morning follow up for seizures no seizure in the last 24 hours feeling well. no specific complaints Review of Systems Review of Systems: Yes all other systems are reviewed and are negative Constitutional Constitutional: Denies chills and Denies fever(s) Cardiovascular Cardiovascular: Denies chest pain, Denies palpitations and Denies dyspnea Respiratory Respiratory: Denies cough and Denies dyspnea Endocrine Endocrine: Denies palpitations Physical Exam Vital Signs: Vital Signs: Last Vital Signs Temp 99.0 F 11/14/23 07:59 Pulse 53 11/14/23 07:59 Resp 20 11/14/23 07:59 BP 115/57 L 11/14/23 07:59 Pulse Ox 98 11/14/23 07:59 O2 Del Method Room Air 11/14/23 07:59 BMI result Body Mass Index 36.4 Const: Other: potsictal General: cooperative, comfortable, no acute distress, alert and awake Nutritional Appearance: obese and overweight Resp: Effort & Inspection: normal respiratory effort, able to speak in complete sentences, no respiratory distress and no use of accessory muscles Auscultation: clear to auscultation bilaterally Cardio: Rate: regular rate GI: Inspection: No distended Palpation (GI): Soft to palpation Objective Data Active Medications Acetaminophen (Acetaminophen 325 Mg Tablet) 650 mg PO Q6H PRN PRN Reason: Pain, Mild (Pain Scale 1-3), fever or headache Last Admin: 11/14/23 07:48 Dose: 650 mg Documented By: IFEANYI Calcium Carbonate (Calcium Carbonate 750 Mg Tab.Chew) 750 mg PO Q4H PRN PRN Reason: Heartburn Clobazam (Clobazam 10 Mg Tablet) 5 mg PO BID MISSY Last Admin: 11/14/23 07:45 Dose: 5 mg Documented By: IFEANYI Hydroxyzine HCl (Hydroxyzine Hcl 25 Mg Tablet) 25 mg PO Q6H PRN PRN Reason: Anxiety Last Admin: 11/13/23 08:49 Dose: 25 mg Documented By: FRANCES Ibuprofen (Ibuprofen 400 Mg Tablet) 400 mg PO TID PRN PRN Reason: Pain, Mild (Pain Scale 1-3) Last Admin: 11/13/23 18:02 Dose: 400 mg Documented By: GONSALO Lamotrigine (Lamotrigine 100 Mg Tablet) 300 mg PO BID [facility] Last Admin: 11/14/23 07:45 Dose: 300 mg Documented By: IFEANYI Lorazepam (Lorazepam 2 Mg/Ml Vial) 2 mg IVPUSH Q1H PRN PRN Reason: Seizures Last Admin: 11/13/23 05:02 Dose: 2 mg Documented By: ASHLEY Magnesium Hydroxide (Milk Of Magnesia 30 Ml Oral.Susp) 30 ml PO DAILY PRN PRN Reason: Constipation Melatonin (Melatonin 3 Mg Tablet) 6 mg PO BEDTIME PRN PRN Reason: Insomnia Last Admin: 11/12/23 20:19 Dose: 6 mg Documented By: ASHLEY Olanzapine (Olanzapine 5 Mg Tablet) 5 mg PO BEDTIME [facility] Last Admin: 11/13/23 20:15 Dose: 5 mg Documented By: ELLE Phenytoin Sodium (Phenytoin Sodium Extended 100 Mg Capsule) 200 mg PO DAILY [facility] Last Admin: 11/14/23 07:45 Dose: 200 mg Documented By: IFEANYI Phenytoin Sodium (Phenytoin Sodium Extended 100 Mg Capsule) 300 mg PO BEDTIME [facility] Last Admin: 11/13/23 20:15 Dose: 300 mg Documented By: ELLE Sertraline HCl (Sertraline Hcl 100 Mg Tablet) 100 mg PO DAILY [facility] Last Admin: 11/14/23 07:45 Dose: 100 mg Documented By: IFEANYI Sodium Chloride (0.9 % Sodium Chloride Flush 3 Ml Syringe) 3 ml IVFLUSH QSHIFT [facility] Last Admin: 11/14/23 07:45 Dose: 3 ml Documented By: IFEANYI Trazodone HCl (Trazodone Hcl 50 Mg Tablet) 50 mg PO BEDTIME MRX1 PRN PRN Reason: Insomnia Labs 11/12/23 11:37 11/12/23 11:37 Assessment and Plan (1) Breakthrough seizure: Status: Acute Plan This is a 43 year old male with history of poorly-controlled seizure disorder, bipolar, PTSD, COPD, alcohol dependence admitted to and 5 for management of SI and HI transferred to the medical floor due to breakthrough seizures breakthrough seizure continue baseline meds lamictal and dilantin prn ativan IV for seizure activity dilatin level therapeutic 18.4, lamotrigine level pending Seizure, aspiration precautions Neurology following - recommend to add clobazam 5 bid (not on formulary but is available by pharmacy order); klonopin stopped unlikely to fully suppress petit mals, goal to minimize generalization as per previous documentation copd no acute exacerbation no inhalers on med list etoh dependence no withdrawal bipolar with SI and HI continue mood stabilizers 1:1 for safety admitted from psych floor, Care team evaluation pending for level of care obesity weight loss recommended dvt ppx - mechanical Requires ongoing hospital stay for care team evaluation and determination of safe disposition, ongoing monitoring for seizure activity Quality Stroke Does the patient have a stroke diagnosis?: No VTE Prior VTE?: No VTE Risk Level:: Medical - moderate - high VTE Device Contraindication: N/A - Device Ordered VTE Drug Contraindication: Treatment Not Indicated
--- NOTE | 2023-11-14 11:14 | PM.DS ---
DS: Providers Provider Date of Service: 11/14/23 <NARENDRA Arredondo - Last Filed: 11/27/23 18:22> 11/15/23 <Deanne Schulte NP - Last Filed: 11/15/23 10:58> Date of admission: 11/12/23 09:55 <NARENDRA Arredondo - Last Filed: 11/27/23 18:22> Date of discharge: 11/14/23 <NARENDRA Arredondo - Last Filed: 11/27/23 18:22> 11/15/23 <Deanne Schulte NP - Last Filed: 11/15/23 10:58> Primary care physician: Matthieu Buenrostro MD <NARENDRA Arredondo - Last Filed: 11/27/23 18:22> Consults: 11/12/23 09:56 Consult to Neurology Routine Consulting Provider: [facility] Reason for consultation: recurrent seizure Has provider been notified: No 11/12/23 09:57 Consult for Sitter Routine Reason for consultation: safety Has provider been notified: No 11/13/23 07:13 Consult to Psychiatry Routine Consulting Provider: Psych Covering Reason for consultation: from [facility], ongoing psychiatric care Has provider been notified: No 11/14/23 10:34 Consult to Care Team Routine Comment: Reason for consultation: SI admitted from M[facility]; medically cleared <NARENDRA Arredondo - Last Filed: 11/27/23 18:22> Attending physician on discharge: Michelle Harris <NARENDRA Arredondo - Last Filed: 11/27/23 18:22> Discharging clinician: Monique Dick <NARENDRA Arredondo - Last Filed: 11/27/23 18:22> DS: Diagnosis Discharge Diagnosis (1) Breakthrough seizure: Status: Acute <NARENDRA Arredondo - Last Filed: 11/27/23 18:22> DS: Summary Hospital Course Hospital Course: Initially admitted from psych floor on 11/02 for breakthrough seizure. He was admitted for intractable seizures. He was seen by neurology recommended stopping Keppra and Depakote and continue Lamictal as well as adding Dilantin which was initially loaded 1 g and and then put on 200 mg b.i.d.. He underwent MRI which showed mild diffuse volume loss of the cerebellum and moderate prominence of the CSF space posterior to the cerebellum. Seizures were much better controlled but he did have a another generalized seizure early a.m. 11/08/2023. Was seen by Neurology who recommended another 500 mg loading of Dilantin and increasing bedtime Dilantin to 300 mg and continuing a.m. Dilantin 200 mg. Goal is to minimize generalized seizures though unlikely to fully prevent. He was seen by care team who recommended admission back to inpatient psychiatry for bipolar disorder with suicidal ideation and homicidal ideation. He was discharged back to inpatient psychiatry on November 08. He remained there until the morning of November 11 when he had another generalized seizure and was transferred back to the medical floor. He was continued on his baseline doses of Dilantin and Lamictal, was seen by Psychiatry who recommended starting clobazam. Klonopin was stopped when clobazam was started. He has been seizure-free for 24 hours, okay to be discharged from neurological perspective. He was seen and evaluated by the care team and deemed not to meet criteria for inpatient level of care. Not actively expressing SI or HI. <NARENDRA Arredondo - Last Filed: 11/27/23 18:22> Time Attestation Discharge Coordination Time (in mins): 40 <NARENDRA Arredondo Last Filed: 11/27/23 18:22> Quality: Safe Use of Opioids Does Pt have an Active Cancer Diagnosis on the Problem List?: No <NARENDRA Arredondo Last Filed: 11/27/23 18:22> Quality: Stroke Does the patient have a stroke diagnosis?: No <NARENDRA Arredondo - Last Filed: 11/27/23 18:22> Physical Exam Vital Signs: Vital Signs: Last Vital Signs Temp 99.0 F 11/14/23 07:59 Pulse 53 11/14/23 07:59 Resp 20 11/14/23 07:59 BP 115/57 L 11/14/23 07:59 Pulse Ox 98 11/14/23 07:59 O2 Del Method Room Air 11/14/23 07:59 BMI result Body Mass Index 36.4 <NARENDRA Arredondo Last Filed: 11/27/23 18:22> Appearing in no acute distress head is normocephalic atraumatic eyes pupils are PERRLA sclera is anicteric mouth throat mucous membranes are intact and moist neck is supple no lymphadenopathy, no JVD noted lung sounds are clear to auscultation heart regular rate rhythm, clear S1, S2 positive bowel sounds, abdomen is soft, nontender neuro patient is alert x3, no focal deficits <Deanne Schulte NP - Last Filed: 11/15/23 10:58> Const: General: cooperative, comfortable, no acute distress, alert and awake <NARENDRA Arredondo - Last Filed: 11/27/23 18:22> Nutritional Appearance: obese and overweight <NARENDRA Arredondo - Last Filed: 11/27/23 18:22> Orientation/consciousness: patient oriented x3 <NARENDRA Arredondo - Last Filed: 11/27/23 18:22> Resp: Effort & Inspection: normal respiratory effort, able to speak in complete sentences, no respiratory distress and no use of accessory muscles <NARENDRA Arredondo - Last Filed: 11/27/23 18:22> Auscultation: clear to auscultation bilaterally <NARENDRA Arredondo - Last Filed: 11/27/23 18:22> Cardio: Rate: regular rate <NARENDRA Arredondo - Last Filed: 11/27/23 18:22> GI: Inspection: No distended <NARENDRA Arredondo - Last Filed: 11/27/23 18:22> Palpation (GI): Soft to palpation <NARENDRA Arredondo - Last Filed: 11/27/23 18:22> Neuro: General: patient oriented x3, moves all extremities and CN's II-XI intact bilaterally <NARENDRA Arredondo - Last Filed: 11/27/23 18:22> Extrem: General: Yes no pedal edema <NARENDRA Arredondo - Last Filed: 11/27/23 18:22> Discharge Plan Discharge Anticipated Discharge Date/Time: 11/15/23 10:55 <NARENDRA Arredondo - Last Filed: 11/27/23 18:22> Patient Disposition: Home, Self-Care <NARENDRA Arredondo - Last Filed: 11/27/23 18:22> Discharge Diagnosis: breakthrough seizure <NARENDRA Arredondo - Last Filed: 11/27/23 18:22> breakthrough seizure <Deanne Schulte NP - Last Filed: 11/15/23 10:58> Referrals: Manuel Kohler [Outside] - 1 Week Name,MD Matthieu [Primary Care Provider] - 1 Week <NARENDRA Arredondo - Last Filed: 11/27/23 18:22> Discharge Medications: New clobazam 10 mg tablet 5 mg PO BID Qty: 60 0RF Continued sertraline 100 mg Tablet 100 mg PO DAILY Qty: 30 0RF olanzapine 5 mg Tablet 5 mg PO BEDTIME Qty: 30 0RF hydroxyzine HCl 25 mg Tablet 25 mg PO Q6H PRN (Reason: Anxiety) Qty: 60 0RF ibuprofen 600 mg Tablet 600 mg PO Q8H PRN (Reason: Pain, Mild (Pain Scale 1-3)) Qty: 60 0RF lamotrigine 100 mg Tablet 300 mg PO BID Qty: 180 0RF trazodone 50 mg Tablet 50 mg PO BEDTIME MRX1 PRN (Reason: Insomnia) Qty: 30 0RF melatonin 3 mg Tablet 6 mg PO BEDTIME PRN (Reason: Insomnia) Qty: 60 0RF phenytoin sodium extended [Dilantin Extended] 100 mg Capsule 200 mg PO DAILY Qty: 60 0RF phenytoin sodium extended [Dilantin Extended] 100 mg Capsule 300 mg PO BEDTIME Qty: 90 0RF Discontinued clonazepam 1 mg Tablet 1 mg PO BID Qty: 14 4RF <NARENDRA Arredondo - Last Filed: 11/27/23 18:22> Discharge Orders: Discharge Order (Routine); Ordered 11/15/23 Ordered By: Deanne Schulte <NARENDRA Arredondo - Last Filed: 11/27/23 18:22> Diet: Advance to usual diet <NARENDRA Arredondo - Last Filed: 11/27/23 18:22> Advance to usual diet <Deanne Schulte NP - Last Filed: 11/15/23 10:58> Activity on Discharge: As tolerated <NARENDRA Arredondo - Last Filed: 11/27/23 18:22> As tolerated <Deanne Schulte NP - Last Filed: 11/15/23 10:58> Stand Alone Forms: Patient Portal Discharge page <NARENDRA Arredondo - Last Filed: 11/27/23 18:22> Print Language: Beninese <NARENDRA Arredondo - Last Filed: 11/27/23 18:22> Care Plan Goals: see below <NARENDRA Arredondo - Last Filed: 11/27/23 18:22> Health Concerns: breakthrough seizures <NARENDRA Arredondo - Last Filed: 11/27/23 18:22> Plan of Treatment: take all medications as prescribed - new medication started is clobazam stop taking keppra klonopin has been stopped as it should not be taken together with clobazam abstain from alcohol use do not drive, swim/bath alone etc safety plan provided by care team call to schedule follow up appointment with PCP - will also need referral to new neurologist follow up with outpatient provider <NARENDRA Arredondo - Last Filed: 11/27/23 18:22> Assessment: see discharge summary <NARENDRA Arredondo - Last Filed: 11/27/23 18:22> Patient Instructions: Epilepsy (DC) <NARENDRA Arredondo - Last Filed: 11/27/23 18:22> Discharge Date/Time: 11/15/23 13:24 <NARENDRA Arredondo - Last Filed: 11/27/23 18:22>
--- NOTE | 2023-11-14 13:28 | MHC.CM.PN ---
PT REPORTS HE LIVES WITH HIS BROTHER AND HOUSING IS STABLE, HOWEVER HE WOULD LIKE TO HAVE HIS OWN APARTMENT [employer] PROVIDED PT REPORTS HE IS INDEPENDENT WITH CARE AND HAS [facility] FOR WEEKLY MED MANAGEMENT VISITS HE IS AWARE PER PSYCH RECOMMENDATIONS, CM HAS REQUESTED [facility] PROVIDE DAILY MED VISITS PT DOES NOT HAVE A HCP PCP: [facility] WITH RESUMPTION OF [facility] IF THEY CAN PROVIDE MEDICATION ADMINISTRATION VISITS, OTHERWISE A NEW VNA REFERRAL WILL BE MADE PT BELIEVES HIS BROTHER CAN PROVIDE TRANSPORTATION AT [place] A REFERRAL WAS ALSO FAXED TO [facility] FOR [facility]CH SERVICES
[2023-11-14 15:57] VITALS: BP 145/68; PULSE 64; RESP 18; TEMP 36.4; O2SAT 98
[2023-11-14 20:00] VITALS: BP 148/68; PULSE 67; RESP 15; TEMP 36.8; O2SAT 96
[2023-11-14] MEDS: traZODone HCL 50 MG TABLET PO (21:20)
[2023-11-14] MEDS: OLANZapine 5 MG TABLET PO (21:20)
[2023-11-14] MEDS: Phenytoin Sodium Extended 100 MG CAPSULE 300 MG PO (21:21)
[2023-11-14 23:33] VITALS: BP 137/64; PULSE 56; RESP 20; TEMP 36.6; O2SAT 93
[2023-11-15] MEDS: Melatonin 3 MG TABLET 6 MG PO (02:44)
[2023-11-15 03:26] VITALS: BP 114/56; PULSE 54; RESP 20; TEMP 36.4; O2SAT 96
[2023-11-15 07:43] VITALS: BP 136/83; PULSE 56; RESP 20; TEMP 36.2; O2SAT 97
[2023-11-15] MEDS: lamoTRIgine 100 MG TABLET 300 MG PO (08:44)
[2023-11-15] MEDS: cloBAZam 10 MG TABLET 5 MG PO (08:45)
[2023-11-15] MEDS: Sertraline HCL 100 MG TABLET PO (08:45)
[2023-11-15] MEDS: Phenytoin Sodium Extended 100 MG CAPSULE 200 MG PO (08:45)
[2023-11-15] MEDS: 0.9 % Sodium Chloride Flush 3 ML SYRINGE IVFLUSH (08:45)
[2023-11-15] MEDS: Ibuprofen 400 MG TABLET PO (08:51)
--- NOTE | 2023-11-15 10:53 | P.F2F_ITS ---
Service Date Service Date: 11/15/23 Encounter Date of encounter: 11/15/23 Reasons for Services Signs and symptoms assessed: Breakthrough Seizure Reason for senior living: medication management Homebound: Leaving the home is medically contraindicated at this time without the asist of a device and/or another person due th the listed conditions above and below. Reason homebound: weakness related to hospital stay Certification: Based on the above findings, I certify that this patient is confined to the home and needs intermittent senior living care, physical therapy and/or speech therapy, or continues to need occupational therapy. The patient is under my car e, and I have initiated the establishment of the plan of care. The patient will be followed by a physician who will periodically review the plan of care. Time Spent With Patient Time: Total time managing care of this patient today ____ minutes.
[2023-11-15] MEDS: Acetaminophen 325 MG TABLET 650 MG PO (11:03)
--- NOTE | 2023-11-15 11:04 | MHC.CM.PN ---
Pt is medically cleared for discharge home with resumption of [facility], pts brother to transport him home.
[2023-11-17 20:33] LABS: Lamotrigine Lamictal 3.1 mcg/mL (2.5-15.0)
== END 2023-11-15 13:24 | disposition home or self-care (01) | DRG 753 ==
PROVIDERS: Admitting Provider Physician Assistant Medical; PCP Internal Medicine Geriatric Medicine; Referring Provider Internal Medicine Geriatric Medicine; Visit Provider Nurse Practitioner Acute Care
DX: F31.9 Bipolar disorder, unspecified (principal); G40.919 Epilepsy, unspecified, intractable, without status epilepticus; R45.851 Suicidal ideations; R45.850 Homicidal ideations; F17.210 Nicotine dependence, cigarettes, uncomplicated; E66.9 Obesity, unspecified; F10.20 Alcohol dependence, uncomplicated; F43.10 Post-traumatic stress disorder, unspecified; J44.9 Chronic obstructive pulmonary disease, unspecified; Z68.36 Body mass index [BMI] 36.0-36.9, adult; Z71.6 Tobacco abuse counseling; Z79.899 Other long term (current) drug therapy
CPT/HCPCS: 36415; 80053; 80175; 80185; 82947; 85025; 93005; J2060; S9485

== ENCOUNTER → 2023-11-12 09:55 | Outpatient (BNV) | payer MEDICAID, SELFPAY | PROVIDERS: Admitting Provider Physician Assistant Medical; PCP Internal Medicine Geriatric Medicine; Visit Provider Psychiatry & Neurology Neurology | DX: G40.319 Generalized idiopathic epilepsy and epileptic syndromes, intractable, without status epilepticus (principal) | CPT/HCPCS: 99222 ==

== ENCOUNTER → 2023-11-12 09:55 | Outpatient (BNV) | payer MEDICAID, SELFPAY | PROVIDERS: Admitting Provider Physician Assistant Medical; PCP Internal Medicine Geriatric Medicine; Visit Provider Internal Medicine | DX: G40.919 Epilepsy, unspecified, intractable, without status epilepticus (principal) | CPT/HCPCS: 99223; 99232; 99239; 99499; G0180 ==

== ENCOUNTER 2023-11-30 15:00 | Outpatient (REF) | payer MEDICAID, SELFPAY ==
[2023-11-30 16:52] LABS: MANUAL DIFF FLAG NO
[2023-11-30 17:03] LABS: Basophils Percent Auto 0.6 % (0-2); Eosinophils Absolute Auto 0.1 X10*3/uL (0.0-0.4); Eosinophils Percent Auto 2.4 % (0-4); Hematocrit 42.7 % (42.0-52.0); Imm Gran Abs Auto 0.02 X10*3/uL (0.00-0.03); Imm Gran Pct Auto 0.4 % (0.0-0.4); Lymphocytes Absolute Auto 1.5 X10*3/uL (1.2-4.9); Lymphocytes Percent Auto 28.2 % (20-40); Mean Corpuscular HGB Conc 32.8 g/dl (31.0-36.0); Mean Corpuscular Volume 94.7 fL (80.0-98.0); Mean Platelet Volume 10.8 fL (9.4-12.4); Monocytes Absolute Auto 0.5 X10*3/uL (0.1-1.2); Neutrophils Absolute Auto 3.2 x10*3/uL (2.0-8.3); Neutrophils Percent Auto 59.4 % (45-73); Platelet Count 209 X10*3/uL (160-400); Red Blood Count 4.51 X10*6/uL (4.60-5.80); Red Cell Distribution Width 13.4 % (11.0-16.0); White Blood Count 5.4 X10*3/uL (4.8-10.8)
[2023-11-30 18:21] LABS: Alanine Aminotransferase 13 U/L (0-40); Albumin Level 4.2 g/dL (3.5-5.0); Alkaline Phosphatase 96 U/L (39-117); Anion Gap 13 (12-20); Aspartate Amino Transferase 23 U/L (5-37); Bilirubin Total 0.4 mg/dL (0.0-1.0); Blood Urea Nitrogen 15 mg/dL (9-16); Calcium 9.4 mg/dL (8.4-10.2); Carbon Dioxide 24 mmol/L (22-29); Chloride 106 mmol/L (96-108); Estimated Glomerular Filt Rate > 60; Glucose Random 76 mg/dL (60-115); Potassium 4.3 mmol/L (3.3-5.1); Sodium 139 mmol/L (135-145); Total Protein 7.9 g/dL (6.5-8.0)
== END 2023-11-30 15:01 | disposition home or self-care (01) ==
LOC: HO.HHCL 15:00
PROVIDERS: Visit Provider Student in an Organized Health Care Education/Training Program
DX: G40.909 Epilepsy, unspecified, not intractable, without status epilepticus (principal)
CPT/HCPCS: 36415; 80053; 85025

== ENCOUNTER 2024-01-29 19:56 | Inpatient (IN) | payer MEDICAID, OTHER, SELFPAY ==
--- NOTE | 2024-01-29 19:59 | ED_ITS ---
HPI - Psych General Chief Complaint: Psychiatric Symptoms Stated Complaint: SI Time Seen by Provider: 01/29/24 20:19 Source: patient, RN notes reviewed and old records reviewed Mode of arrival: ambulatory Limitations: no limitations History of Present Illness ED Provider: Mariela HPI Narrative: 43-year-old male past medical history significant for PTSD, epilepsy, bipolar disorder, alcohol dependence, COPD presents for evaluation of suicidal ideation. Patient was somewhat unclear with his explanation. He reports that he is suicidal since this morning. He reports that he had an interaction with his brother which led him to be suicidal. The patient plan to stab himself with a metal pitchfork He did not harm himself in any way. He reports that he has been compliant with all of his medications. He reports chronic back pain but no change He has a history of COPD but reports that his breathing is normal today No other complaints or concerns at this time Related Data Home Medications ?Medication ?Instructions ?Recorded ?Confirmed clobazam 10 mg tablet 15 mg PO BEDTIME 01/29/24 01/29/24 ipratropium 20 mcg-albuterol 100 1 puff inhalation Q6H PRN wheezing 01/29/24 01/29/24 mcg/actuation mist for inhalation (Combivent Respimat) topiramate 100 mg tablet 100 mg PO BID 01/29/24 01/29/24 Previous Rx's ?Medication ?Instructions ?Recorded lamotrigine 100 mg tablet 300 mg (3 x 100 mg) PO BID #180 11/12/23 tabs melatonin 3 mg tablet 6 mg (2 x 3 mg) PO BEDTIME PRN 11/12/23 Insomnia #60 tabs olanzapine 5 mg tablet 5 mg PO BEDTIME #30 tabs 11/12/23 sertraline 100 mg tablet 100 mg PO DAILY #30 tabs 11/12/23 trazodone 50 mg tablet 50 mg PO BEDTIME MRX1 PRN Insomnia 11/12/23 #30 tabs Allergies Allergy/AdvReac Type Severity Reaction Status Date / Time erythromycin base Allergy Unknown UNKNOWN Verified 01/29/24 20:03 [Erythromycin Base] cyclobenzaprine AdvReac Intermediate Other Verified 01/29/24 20:03 [From Flexeril] Review of Systems 2 Constitutional: Constitutional: Denies body ache(s), Denies chills, Denies fever(s), Denies frequent falls and Denies headache(s) Eyes: Eyes: Denies blurry vision ENT: Denies dysphagia, Denies vertigo, Denies dizziness and Denies headache(s) Cardiovascular: Cardiovascular: Denies chest pain and Denies dyspnea Respiratory: Respiratory: Denies cough and Denies dyspnea Gastrointestinal: Gastrointestinal: Denies abdominal pain and Denies dysphagia Musculoskeletal: Musculoskeletal: Reports back pain Integumentary/Breasts: Skin/Breast: Denies rash Neurologic: Denies vertigo, Denies dizziness, Denies frequent falls and Denies headache(s) [facility] Past Medical History Medical History COPD (chronic obstructive pulmonary disease) Alcohol dependence Bipolar disorder Intractable epilepsy Social History Social History Household Members: Family Household Members Other:: Brothers Housing: House Do you presently have visiting nurse or other home services: Yes Alcohol intake: current Alcohol intake frequency: holidays/special occasions only Alcohol type: beer and hard liquor Comment: SITTER 1:1 Patient Tobacco Use Status: Current everyday Tobacco user Tobacco use type: Cigarette Cigarette Packs Per Day: 0.5 Cigarettes Per Day: 10.0 e-Cigarette/Vaping Use: Never Used Second Hand Smoke Exposure: No Advance Directives: No Advance Directives Information Provided: No service: No Sexual orientation: Straight/Heterosexual Physical Exam 2 Vital Signs: Vital Signs: Last Vital Signs Temp 97.9 F 01/30/24 07:44 Pulse 73 01/30/24 07:44 Resp 18 01/30/24 07:44 BP 143/72 H 01/30/24 07:44 Pulse Ox 100 01/30/24 07:44 O2 Del Method Room Air 01/30/24 07:44 BMI result Body Mass Index 35.8 Const: General: healthy appearing, comfortable, no acute distress, alert and awake Nutritional Appearance: well nourished Orientation/consciousness: p atient oriented x3 HEENT: Head: Yes normocephalic and Yes atraumatic Eyes: Eyelids: Yes eyelids normal Conjunctivae: conjunctivae normal S clerae: sclerae normal Corneas: corneas normal Pupils: Equal, round and reactive pupils present EOM: EOMs intact bilaterally Neck: Neck: Yes full ROM Resp: Effort & Inspection: normal respiratory effort, able to speak in complete sentences and not labored Skin: General skin exam: elasticity normal Neuro: General: patient oriented x3 Cranial nerves: Yes Equal, round and reactive pupils present and Yes Bilaterally intact EOM present Psych: Appearance: disheveled Affect: Sad affect present Attitude: A voids eye contact (attititude/behavior) Thought process: Tangential thought process present Thought content: Suicidality present Insight: Limited insight present (Psych) Judgement: Limited judgement present (Psych) Course Course Course Narrative: This is a Rapid Medical Exam performed in triage by Camila Danielle PA-C. Full HPI, ROS and PE to be performed by primary ED provider. 43 yo M w/PMHx seizures, PTSD, bipolar, ETOH dependence, COPD, presenting to the ED c/o suicidal ideations w/plan to stab himself with metal pitch forks which he has at home. states he had to stop himself. denies AH/VH, HI. Denies ETOH or substance use. reports compliance with all Rx medications PE: cooperative, depressed, suicidal Plan: EKG, labs, UA, Tox screen Reevaluation(s) Reevaluation #1: Patient is under section 12, pending psych admission. Time: 12:19 Medications Administered Generic Name Dose Route Start Last Admin Trade Name Frejohn PRN Reason Stop Dose Admin Clobazam 15 mg 01/29/24 22:00 01/29/24 22:33 Clobazam 10 Mg Tablet PO 15 mg BEDTIME MISSY Administration Lamotrigine 300 mg 01/30/24 09:00 01/30/24 09:06 Lamotrigine 100 Mg Tablet PO 300 mg BID MISSY Administration Melatonin 6 mg 01/29/24 21:55 01/29/24 22:37 Melatonin 3 Mg Tablet PO 6 mg BEDTIME PRN Administration Insomnia Olanzapine 5 mg 01/29/24 22:00 01/29/24 22:33 Olanzapine 5 Mg Tablet PO 5 mg BEDTIME MISSY Administration Sertraline HCl 100 mg 01/30/24 09:00 01/30/24 09:06 Sertraline Hcl 100 Mg Tablet PO 100 mg DAILY MISSY Administration Topiramate 100 mg 01/29/24 22:00 01/30/24 09:06 Topiramate 100 Mg Tablet PO 100 mg BID MISSY Administration Discontinued Medications Generic Name Dose Route Start Last Admin Trade Name David PRN Reason Stop Dose Admin Nicotine 21 mg 01/29/24 21:30 01/29/24 21:33 Nicotine 21 Mg Patch.Td24 TRANSDERMA 01/29/24 21:31 21 mg ONCE ONE Administration Nicotine 21 mg 01/29/24 21:56 01/29/24 22:40 Nicotine 21 Mg Patch.Td24 TRANSDERMA 01/29/24 21:57 Not Given ONCE ONE Medical Decision Making Medical Decision Making [facility] Narrative: 43-year-old male presents for evaluation of suicidal ideation. Plan for medical clearance and care team evaluation Differential Diagnosis Differential Diagnoses: The differential diagnosis associated with the presentation includes Depression Suicidal ideation Bipolar disorder PTSD Lab Data [facility] Lab Attestation statement: I reviewed the patient's lab results. No leukocytosis or anemia. Normal platelet count. No significant electrolyte abnormalities. Renal function within normal limits. 01/29/24 20:16 01/29/24 20:16 Labs: Lab Results 01/29/24 01/29/24 Range/Units 20:16 21:41 WBC 9.2 (4.8-10.8) X10*3/uL RBC 4.79 (4.60-5.80) X10*6/uL Hgb 14.6 (14.0-18.0) g/dl Hct 43.6 (42.0-52.0) % MCV 91.0 (80.0-98.0) fL MCH 30.5 (27.0-33.0) pg MCHC 33.5 (31.0-36.0) g/dl RDW 13.4 (11.0-16.0) % Plt Count 182 (160-400) X10*3/uL MPV 11.6 (9.4-12.4) fL Immature Gran % (Auto) 0.2 (0.0-0.4) % Neut % (Auto) 78.6 H (45-73) % Lymph % (Auto) 13.1 L (20-40) % [place] % (Auto) 7.0 (2-11) % Eos % (Auto) 0.7 (0-4) % Baso % (Auto) 0.4 (0-2) % Lymph # (Auto) 1.2 (1.2-4.9) X10*3/uL [place] # (Auto) 0.7 (0.1-1.2) X10*3/uL Eos # (Auto) 0.1 (0.0-0.4) X10*3/uL Baso # (Auto) 0.0 (0.0-0.2) X10*3/uL Abs Immat Gran (auto) 0.02 (0.00-0.03) X10*3/uL Absolute Neuts (auto) 7.2 (2.0-8.3) x10*3/uL Absolute Nucleated RBC 0.000 (0.0-0.012) X10*3/uL Nucleated RBC % (auto) 0.0 (0.0-0.2) /100WBC Smear Tech's Comments VERIFIED Sodium 139 (135-145) mmol/L Potassium 4.1 (3.3-5.1) mmol/L Chloride 109 H (96-108) mmol/L Carbon Dioxide 17 L (22-29) mmol/L Anion Gap 17 (12-20) BUN 15 (9-16) mg/dL Creatinine 1.28 (0.5-1.4) mg/dL Estim Creat Clear Calc 97.6 Estimated GFR > 60 Random Glucose 100 (60-115) mg/dL Calcium 9.5 (8.4-10.2) mg/dL Magnesium 2.0 (1.6-2.6) mg/dL Total Bilirubin 0.6 (0.0-1.0) mg/dL Direct Bilirubin 0.2 (0.0-0.5) mg/dL AST 51 H (5-37) U/L ALT 28 (0-40) U/L Alkaline Phosphatase 105 (39-117) U/L Total Protein 7.7 (6.5-8.0) g/dL Albumin 4.3 (3.5-5.0) g/dL Salicylates < 5.0 L (15-30) mg/dL Urine Opiates Screen Not Detected (Not Detect) Ur Buprenorphine Scrn Not Detected (Not Detect) ng/mL Ur Oxycodone Screen Not Detected (Not Detect) ng/mL Urine Methadone Screen Not Detected (Not Detect) ng/mL Urine Fentanyl Screen Not Detected (Not Detect) Acetaminophen < 3 (<30) mcg/mL Ur Barbiturates Screen Not Detected (Not Detect) Phenytoin < 1.8 L* (10.0-20.0) ug/mL Ur Phencyclidine Scrn Not Detected (Not Detect) Ur Amphetamines Screen Not Detected (Not Detect) U Benzodiazepines Scrn POSITIVE H (Not Detect) Urine Cocaine Screen Not Detected (Not Detect) U Marijuana (THC) Screen Not Detected (Not Detect) Ethyl Alcohol < 10 mg/dL Discharge Plan Discharge Clinical Impression: Depression with suicidal ideation Patient Disposition: Still a Patient Interventions: Van-Suicide Risk Severity Scale Last Done: 01/29/24 21:11
[2024-01-29 20:00] VITALS: BP 123/82; PULSE 103; RESP 18; TEMP 35.6; O2SAT 97; BMI 35.8
[2024-01-29 20:25] LABS: Basophils Percent Auto 0.4 % (0-2); Eosinophils Absolute Auto 0.1 X10*3/uL (0.0-0.4); Eosinophils Percent Auto 0.7 % (0-4); Hematocrit 43.6 % (42.0-52.0); Hemoglobin 14.6 g/dl (14.0-18.0); Imm Gran Abs Auto 0.02 X10*3/uL (0.00-0.03); Imm Gran Pct Auto 0.2 % (0.0-0.4); Lymphocytes Absolute Auto 1.2 X10*3/uL (1.2-4.9); Lymphocytes Percent Auto 13.1 % (20-40); MANUAL DIFF FLAG SCAN; Mean Corpuscular HGB Conc 33.5 g/dl (31.0-36.0); Mean Corpuscular Hemoglobin 30.5 pg (27.0-33.0); Mean Platelet Volume 11.6 fL (9.4-12.4); Monocytes Absolute Auto 0.7 X10*3/uL (0.1-1.2); Neutrophils Absolute Auto 7.2 x10*3/uL (2.0-8.3); Neutrophils Percent Auto 78.6 % (45-73); PLT CLUMP 1; Red Blood Count 4.79 X10*6/uL (4.60-5.80); Red Cell Distribution Width 13.4 % (11.0-16.0); SCAN SMEAR FLAG 1
--- NOTE | 2024-01-29 20:35 | PC.NURSE ---
patient changeover conducted by t/w which indicates no evidence of injury or contraband, patient appears to be poor self care.
[2024-01-29 20:41] LABS: White Blood Count 9.2 X10*3/uL (4.8-10.8)
[2024-01-29 20:42] LABS: Platelet Count 182 X10*3/uL (160-400); SLIDE REVIEW VERIFIED
[2024-01-29 20:56] LABS: Acetaminophen LAB < 3 mcg/mL (<30); Alanine Aminotransferase 28 U/L (0-40); Albumin Level 4.3 g/dL (3.5-5.0); Alkaline Phosphatase 105 U/L (39-117); Anion Gap 17 (12-20); Aspartate Amino Transferase 51 U/L (5-37); Bilirubin Direct 0.2 mg/dL (0.0-0.5); Bilirubin Total 0.6 mg/dL (0.0-1.0); Blood Urea Nitrogen 15 mg/dL (9-16); Calcium 9.5 mg/dL (8.4-10.2); Carbon Dioxide 17 mmol/L (22-29); Chloride 109 mmol/L (96-108); Creatinine Clr Calc Pharmacy 97.6; Estimated Glomerular Filt Rate > 60; Ethanol < 10 mg/dL; Glucose Random 100 mg/dL (60-115); Potassium 4.1 mmol/L (3.3-5.1); Salicylate < 5.0 mg/dL (15-30); Sodium 139 mmol/L (135-145); Total Protein 7.7 g/dL (6.5-8.0)
[2024-01-29 21:04] LABS: Phenytoin Dilantin < 1.8 ug/mL (10.0-20.0)
[2024-01-29] MEDS: Nicotine 21 MG PATCH.TD24 TRANSDERMA (21:33)
[2024-01-29 22:02] LABS: Amphetamine Screen Urine Not Detected (Not Detect); Barbiturates, Urine Not Detected (Not Detect); Benzodiazepines Screen Urine POSITIVE (Not Detect); Buprenorphine Scr Not Detected (Not Detect); Cannabinoid Screen Urine Not Detected (Not Detect); Cocaine Screen Urine Not Detected (Not Detect); Fentanyl, urine Not Detected (Not Detect); Methadone Screen, Urine Not Detected (Not Detect); Opiate Screen Urine Not Detected (Not Detect); Oxycodone Screen Urine Not Detected (Not Detect); Phencyclidine Screen Urine Not Detected (Not Detect)
[2024-01-29] MEDS: OLANZapine 5 MG TABLET PO (22:33)
[2024-01-29] MEDS: Topiramate 100 MG TABLET PO (22:33)
[2024-01-29] MEDS: lamoTRIgine 100 MG TABLET 300 MG PO ×2 (22:33)
[2024-01-29] MEDS: cloBAZam 10 MG TABLET 15 MG PO (22:33)
[2024-01-29] MEDS: Melatonin 3 MG TABLET 6 MG PO (22:37)
--- NOTE | 2024-01-30 | ECG_ITS ---
Test Reason : ADMIT Blood Pressure : / mmHG Vent. Rate : 063 BPM Atrial Rate : 063 BPM P-R Int : 210 ms QRS Dur : 108 ms QT Int : 406 ms P-R-T Axes : 045 011 008 degrees QTc Int : 415 ms Sinus rhythm with 1st degree A-V block Otherwise normal ECG When compared with ECG of 12-NOV-2023 09:31, No significant change was found Referred By: Susana Pittman Electronically Signed By:BLAS CARPIO
[2024-01-30 06:11] VITALS: RESP 16
[2024-01-30 07:44] VITALS: BP 143/72; PULSE 73; RESP 18; TEMP 36.6; O2SAT 100
[2024-01-30] MEDS: Sertraline HCL 100 MG TABLET PO (09:06)
[2024-01-30] MEDS: Topiramate 100 MG TABLET PO ×2 (09:06→20:31)
[2024-01-30] MEDS: lamoTRIgine 100 MG TABLET 300 MG PO ×2 (09:06→20:32)
--- NOTE | 2024-01-30 09:31 | MHC.CARE ---
Pt will be an inpatient psychiatric bedsearch
--- NOTE | 2024-01-30 10:11 | MHC.EDTECH ---
patient ambulated to bathroom to showed,AM care Done , bed clean and linen change RN aware
[2024-01-30] MEDS: Nicotine 14 MG PATCH.TD24 TRANSDERMA (13:12)
[2024-01-30 14:10] VITALS: BP 154/75; PULSE 69; RESP 18; TEMP 37.1; O2SAT 97
[2024-01-30 14:17] VITALS: BMI 34.3
[2024-01-30] MEDS: Flu Vacc TS2024-25(6mos up)/PF 0.5 ML SYRINGE IM (15:50)
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
[2024-01-30 19:39] VITALS: BP 132/87; PULSE 74; RESP 18; TEMP 37; O2SAT 99
[2024-01-30] MEDS: OLANZapine 5 MG TABLET PO (20:31)
[2024-01-30] MEDS: cloBAZam 10 MG TABLET 15 MG PO (20:32)
[2024-01-30] MEDS: traZODone HCL 50 MG TABLET PO (20:37)
[2024-01-30] MEDS: Melatonin 3 MG TABLET 6 MG PO (20:37)
[2024-01-31 08:00] VITALS: BP 125/76; PULSE 54; TEMP 36.7; O2SAT 100
[2024-01-31] MEDS: lamoTRIgine 100 MG TABLET 300 MG PO ×2 (08:58→21:16)
[2024-01-31] MEDS: Sertraline HCL 100 MG TABLET PO (08:59)
[2024-01-31] MEDS: Topiramate 100 MG TABLET PO ×2 (08:59→21:16)
[2024-01-31] MEDS: Nicotine 14 MG PATCH.TD24 TRANSDERMA (09:00)
[2024-01-31] MEDS: Acetaminophen 325 MG TABLET 650 MG PO ×2 (09:03→21:23)
[2024-01-31 09:14] LABS: Albumin Level 4.3 g/dL (3.5-5.0); Alkaline Phosphatase 96 U/L (39-117); Anion Gap 13 (12-20); Aspartate Amino Transferase 45 U/L (5-37); Bilirubin Total 0.5 mg/dL (0.0-1.0); Blood Urea Nitrogen 17 mg/dL (9-16); Calcium 9.5 mg/dL (8.4-10.2); Carbon Dioxide 22 mmol/L (22-29); Chloride 109 mmol/L (96-108); Cholesterol 176 mg/dL (<200); Estimated Glomerular Filt Rate > 60; Glucose Fasting 120 mg/dL (60-99); HDL Cholesterol 70 mg/dL (>40); LDL Cholesterol Calculated 96 mg/dL (<100); Potassium 4.5 mmol/L (3.3-5.1); Sodium 139 mmol/L (135-145); Total Protein 7.8 g/dL (6.5-8.0); Triglycerides 53 mg/dL (<150)
[2024-01-31 09:25] LABS: Alanine Aminotransferase 33 U/L (0-40)
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
[2024-01-31 20:00] VITALS: BP 127/77; PULSE 67; RESP 16; TEMP 36.8; O2SAT 98
[2024-01-31] MEDS: cloBAZam 10 MG TABLET 15 MG PO (21:16)
[2024-01-31] MEDS: OLANZapine 5 MG TABLET PO (21:16)
[2024-01-31] MEDS: traZODone HCL 50 MG TABLET PO (21:24)
[2024-01-31] MEDS: Melatonin 3 MG TABLET 6 MG PO (21:24)
[2024-02-01] VITALS: BP 128/78; PULSE 98; RESP 14
[2024-02-01 04:00] VITALS: PULSE 92; RESP 18
[2024-02-01 09:40] VITALS: BP 125/62; PULSE 57; TEMP 36.3; O2SAT 97
[2024-02-01] MEDS: Nicotine 14 MG PATCH.TD24 TRANSDERMA (10:14)
[2024-02-01] MEDS: lamoTRIgine 100 MG TABLET 300 MG PO ×2 (10:15→21:01)
[2024-02-01] MEDS: Topiramate 100 MG TABLET PO ×2 (10:15→21:01)
[2024-02-01] MEDS: Sertraline HCL 100 MG TABLET PO (10:15)
[2024-02-01] MEDS: Acetaminophen 325 MG TABLET 650 MG PO ×2 (10:21→21:05)
[2024-02-01] MEDS: hydrOXYzine HCL 25 MG TABLET PO ×2 (15:33→21:01)
--- NOTE | 2024-02-01 19:40 | P.PNPSI_ITS ---
Subjective Subjective Date of Service: 02/01/24 Reason For Visit: SI Subjective Notes: Conditional Voluntary Healthcare Proxy: No Guardianship: No Medical Problems Affecting Mental Status: No Interim History: Full medicine review, compared to last [facility] discharge. Pt reports scheduled hydroxyzine is helpful-scheduled 25 mg qid Pt talked with his brother-family wants him at home, they love him and care about him. Pt with great relief after hearing this, but I am still depressed. Discussed titration of Sertraline which he will consider after hydroxyzine is established. I am living inside of my head, and it is not a good space. Medication Compliance: Yes Side effects from medications: No Attending Groups: Intermittent Review of Systems Acute medical concerns: No Review of Systems Review of Systems Denies Mental Status Exam Mental Status Exam Narrative: Alert, oriented. Speech slow, ?thought blocking Affect flat, mood depressed with SI, perseverative sx Denies HI, AH,VH Diagnostics Vital Signs (24Hr): Vital Signs - 24 hr 01/31/24 20:00 02/01/24 00:00 02/01/24 04:00 Temperature 98.2 F Pulse Rate 67 98 92 Respiratory Rate 16 14 18 Blood Pressure 127/77 128/78 Pulse Oximetry 98 Oxygen Delivery Method Room Air 02/01/24 09:40 Temperature 97.3 F Pulse Rate 57 Respiratory Rate Blood Pressure 125/62 Pulse Oximetry 97 Oxygen Delivery Method Room Air BMI result Body Mass Index 34.3 Labs 01/29/24 20:16 01/31/24 08:46 Labs: Laboratory Results - last 48 hr 01/31/24 08:46 Sodium 139 Potassium 4.5 Chloride 109 H Carbon Dioxide 22 Anion Gap 13 BUN 17 H Creatinine 1.01 Estim Creat Clear Calc 121.0 Estimated GFR > 60 Fasting Glucose 120 H Calcium 9.5 Total Bilirubin 0.5 AST 45 H ALT 33 Alkaline Phosphatase 96 Total Protein 7.8 Albumin 4.3 Triglycerides 53 Cholesterol 176 LDL Cholesterol, Calc 96 HDL Cholesterol 70 Medications Medications Current Medications Acetaminophen (Acetaminophen 325 Mg Tablet) 650 mg PO Q6H PRN PRN Reason: Headache/Pain Mild Scale (1-3) Last Admin: 02/01/24 10:21 Dose: 650 mg Al Hydroxide/Mg Hydroxide (Magnesium Hydrox/Alum Hydrox 30 Ml Oral.Susp) 30 ml PO Q6H PRN PRN Reason: Heartburn/Nausea Albuterol/Ipratropium (Albuterol/Iprat 2.5/0.5mg 3 Ml Ampul.Neb) 3 ml INHALE Q6H PRN PRN Reason: wheezing Clobazam (Clobazam 10 Mg Tablet) 15 mg PO BEDTIME [facility] Last Admin: 01/31/24 21:16 Dose: 15 mg Hydroxyzine HCl (Hydroxyzine Hcl 25 Mg Tablet) 25 mg PO Q6H PRN PRN Reason: Anxiety Last Admin: 02/01/24 15:33 Dose: 25 mg Hydroxyzine HCl (Hydroxyzine Hcl 25 Mg Tablet) 25 mg PO QID [facility] Last Admin: 02/01/24 18:09 Dose: Not Given Lamotrigine (Lamotrigine 100 Mg Tablet) 300 mg PO BID [facility] Last Admin: 02/01/24 10:15 Dose: 300 mg Magnesium Hydroxide (Milk Of Magnesia 30 Ml Oral.Susp) 30 ml PO DAILY PRN PRN Reason: Constipation Melatonin (Melatonin 3 Mg Tablet) 6 mg PO BEDTIME PRN PRN Reason: Insomnia Last Admin: 01/31/24 21:24 Dose: 6 mg Nicotine (Nicotine 14 Mg Patch.Td24) 14 mg TRANSDERMA DAILY [facility] Last Admin: 02/01/24 10:14 Dose: 14 mg Nicotine Polacrilex (Nicotine Polacrilex 2 Mg Gum) 2 mg BUCCAL Q2H PRN PRN Reason: Nicotine Cravings Olanzapine (Olanzapine 5 Mg Tablet) 5 mg PO BEDTIME [facility] Last Admin: 01/31/24 21:16 Dose: 5 mg Sertraline HCl (Sertraline Hcl 100 Mg Tablet) 100 mg PO DAILY [facility] Last Admin: 02/01/24 10:15 Dose: 100 mg Topiramate (Topiramate 100 Mg Tablet) 100 mg PO BID [facility] Last Admin: 02/01/24 10:15 Dose: 100 mg Trazodone HCl (Trazodone Hcl 50 Mg Tablet) 50 mg PO BEDTIME MRX1 PRN PRN Reason: Insomnia Last Admin: 01/31/24 21:24 Dose: 50 mg Allergies Allergies Allergy/AdvReac Type Severity Reaction Status Date / Time erythromycin base Allergy Unknown UNKNOWN Verified 01/29/24 20:03 [Erythromycin Base] cyclobenzaprine AdvReac Intermediate Other Verified 01/29/24 20:03 [From Flexeril] Assessment & Plan Assessment & Plan (1) PTSD (post-traumatic stress disorder): Status: Acute Code(s): F43.10 - Post-traumatic stress disorder, unspecified (2) Bipolar disorder: Status: Acute Code(s): F31.9 - Bipolar disorder, unspecified (3) Alcohol dependence: Status: Acute Code(s): F10.20 - Alcohol dependence, uncomplicated Plan 01/31: Hydroxyzine 25 mg qid Pt is considering increases in Olanzapine/Sertraline for 02/01. Today, clarified with brother that he can return home and is still a valued family member. Reason for continued inpatient stay Substantial Risk for: rapid decompensation and med/psych decompensation Time Spent With Patient Time: Total time managing care of this patient today ____ minutes.
[2024-02-01 20:00] VITALS: BP 135/77; PULSE 59; TEMP 36.9; O2SAT 98
[2024-02-01] MEDS: cloBAZam 10 MG TABLET 15 MG PO (21:00)
[2024-02-01] MEDS: OLANZapine 5 MG TABLET PO (21:01)
[2024-02-01] MEDS: traZODone HCL 50 MG TABLET PO (22:06)
[2024-02-01] MEDS: Melatonin 3 MG TABLET 6 MG PO (22:06)
[2024-02-02 08:00] VITALS: BP 155/98; PULSE 63; RESP 16; TEMP 36.4; O2SAT 99
[2024-02-02] MEDS: hydrOXYzine HCL 25 MG TABLET PO ×4 (08:36→20:22)
[2024-02-02] MEDS: lamoTRIgine 100 MG TABLET 300 MG PO ×2 (08:36→20:21)
[2024-02-02] MEDS: Topiramate 100 MG TABLET PO ×2 (08:36→20:22)
[2024-02-02] MEDS: Sertraline HCL 100 MG TABLET PO (08:36)
[2024-02-02] MEDS: Nicotine 14 MG PATCH.TD24 TRANSDERMA (08:36)
[2024-02-02] MEDS: Acetaminophen 325 MG TABLET 650 MG PO ×2 (08:51→20:21)
--- NOTE | 2024-02-02 18:31 | HO.PSYCHPN ---
Subjective Subjective Date of Service: 02/02/24 Reason For Visit: SI Subjective Notes: Conditional Voluntary Healthcare Proxy: No Guardianship: No Medical Problems Affecting Mental Status: No Interim History: I still don't feel right. Discussed feeling on the dark side States music, TV, being quiet and not talking much is problematic for him, cannot open up more. States I am taking in information, paying attention to time and trying to figure it out. Reports poor sleep. Discussed Trazodone increase which he agrees with. Pleased he has worked things out with his brother at home. Medication Compliance: Yes Side effects from medications: No Attending Groups: Yes Review of Systems Acute medical concerns: No Review of Systems Review of Systems Yes all other systems are reviewed and are negative Mental Status Exam Mental Status Exam Narrative: Alert, oriented. Speech is clearer, reflective, without sx of blocking today. Affect flat, mood depressed with SI, perseverative sx Denies HI, AH,VH Diagnostics Vital Signs (24Hr): Vital Signs - 24 hr 02/01/24 20:00 02/02/24 08:00 Temperature 98.4 F 97.5 F Pulse Rate 59 63 Respiratory Rate 16 Blood Pressure 135/77 155/98 H Pulse Oximetry 98 99 Oxygen Delivery Method Room Air Room Air BMI result Body Mass Index 34.3 Labs 01/29/24 20:16 01/31/24 08:46 Medications Medications Current Medications Acetaminophen (Acetaminophen 325 Mg Tablet) 650 mg PO Q6H PRN PRN Reason: Headache/Pain Mild Scale (1-3) Last Admin: 02/02/24 08:51 Dose: 650 mg Al Hydroxide/Mg Hydroxide (Magnesium Hydrox/Alum Hydrox 30 Ml Oral.Susp) 30 ml PO Q6H PRN PRN Reason: Heartburn/Nausea Albuterol/Ipratropium (Albuterol/Iprat 2.5/0.5mg 3 Ml Ampul.Neb) 3 ml INHALE Q6H PRN PRN Reason: wheezing Clobazam (Clobazam 10 Mg Tablet) 15 mg PO BEDTIME MISSY Last Admin: 02/01/24 21:00 Dose: 15 mg Hydroxyzine HCl (Hydroxyzine Hcl 25 Mg Tablet) 25 mg PO Q6H PRN PRN Reason: Anxiety Last Admin: 02/01/24 15:33 Dose: 25 mg Hydroxyzine HCl (Hydroxyzine Hcl 25 Mg Tablet) 25 mg PO QID [facility] Last Admin: 02/02/24 16:33 Dose: 25 mg Lamotrigine (Lamotrigine 100 Mg Tablet) 300 mg PO BID [facility] Last Admin: 02/02/24 08:36 Dose: 300 mg Magnesium Hydroxide (Milk Of Magnesia 30 Ml Oral.Susp) 30 ml PO DAILY PRN PRN Reason: Constipation Melatonin (Melatonin 3 Mg Tablet) 6 mg PO BEDTIME PRN PRN Reason: Insomnia Last Admin: 02/01/24 22:06 Dose: 6 mg Nicotine (Nicotine 14 Mg Patch.Td24) 14 mg TRANSDERMA DAILY [facility] Last Admin: 02/02/24 08:36 Dose: 14 mg Nicotine Polacrilex (Nicotine Polacrilex 2 Mg Gum) 2 mg BUCCAL Q2H PRN PRN Reason: Nicotine Cravings Olanzapine (Olanzapine 5 Mg Tablet) 5 mg PO BEDTIME [facility] Last Admin: 02/01/24 21:01 Dose: 5 mg Sertraline HCl (Sertraline Hcl 100 Mg Tablet) 100 mg PO DAILY [facility] Last Admin: 02/02/24 08:36 Dose: 100 mg Topiramate (Topiramate 100 Mg Tablet) 100 mg PO BID [facility] Last Admin: 02/02/24 08:36 Dose: 100 mg Trazodone HCl (Trazodone Hcl 100 Mg Tablet) 100 mg PO BEDTIME [facility] Allergies Allergies Allergy/AdvReac Type Severity Reaction Status Date / Time erythromycin base Allergy Unknown UNKNOWN Verified 01/29/24 20:03 [Erythromycin Base] cyclobenzaprine AdvReac Intermediate Other Verified 01/29/24 20:03 [From Flexeril] Assessment & Plan Assessment & Plan (1) PTSD (post-traumatic stress disorder): Status: Acute Code(s): F43.10 - Post-traumatic stress disorder, unspecified (2) Bipolar disorder: Status: Acute Code(s): F31.9 - Bipolar disorder, unspecified (3) Alcohol dependence: Status: Acute Code(s): F10.20 - Alcohol dependence, uncomplicated Plan 01/31: Hydroxyzine 25 mg qid Pt is considering increases in Olanzapine/Sertraline for 02/01. Today, clarified with brother that he can return home and is still a valued family member. 02/01: Trazodone 100 mg HS Reason for continued inpatient stay Substantial Risk for: rapid decompensation and med/psych decompensation Time Spent With Patient Time: Total time managing care of this patient today ____ minutes.
[2024-02-02 18:34] LABS: Lamotrigine Lamictal 5.5 mcg/mL (2.5-15.0)
[2024-02-02 20:00] VITALS: BP 150/76; PULSE 69; TEMP 36.7; O2SAT 99
[2024-02-02] MEDS: OLANZapine 5 MG TABLET PO (20:21)
[2024-02-02] MEDS: traZODone HCL 100 MG TABLET PO (20:22)
[2024-02-02] MEDS: cloBAZam 10 MG TABLET 15 MG PO (20:22)
[2024-02-02] MEDS: Melatonin 3 MG TABLET 6 MG PO (21:03)
[2024-02-03] MEDS: Topiramate 100 MG TABLET PO (08:24)
[2024-02-03] MEDS: Sertraline HCL 100 MG TABLET PO (08:24)
[2024-02-03] MEDS: cloBAZam 10 MG TABLET 15 MG PO (08:24)
[2024-02-03] MEDS: hydrOXYzine HCL 25 MG TABLET PO ×3 (08:24→13:05)
[2024-02-03] MEDS: lamoTRIgine 100 MG TABLET 300 MG PO (08:25)
[2024-02-03 08:52] VITALS: BP 126/72; PULSE 92; RESP 16; TEMP 36.9; O2SAT 93
--- NOTE | 2024-02-03 09:09 | PC.NURSE ---
TW was approached by an [facility] at approximately 0725am to report being unable to obtain a blood pressure on the pt because they keep clenching up their arms . TW responded to the pts room and pt was noted to be having intermittent petit mal seizures. Pt was noted to have 6-7 petit mal seizures from 730-740am lasting 3-5 seconds each. Hospitalist notified at 0742am and clobazam 15mg ordered PO. Hospitalist stated he reviewed pts chart and had no concerns and would have PA evaluate pt around 11am. Medication was obtained and when nurse returned to room pt was snoring, respirations even and unlabored. Pt was awoken and medication administered. Pt had 2 more petit mal seizures lasting less than 5 seconds each. O/C Psch RN INFUSION notofied and pt placed on 5 min checks for safety. Pt is currently resting, respirations even and unlabored. Will continue to monitor.
--- NOTE | 2024-02-03 09:56 | HO.PSYCHPN ---
Subjective Subjective Date of Service: 02/03/24 Reason For Visit: SI Interim History: I still don't feel right. Discussed feeling on the dark side States music, TV, being quiet and not talking much is problematic for him, cannot open up more. States I am taking in information, paying attention to time and trying to figure it out. Reports poor sleep. Discussed Trazodone increase which he agrees with. Pleased he has worked things out with his brother at home. Review of Systems Review of Systems Denies Yes all other systems are reviewed and are negative Constitutional: Denies body ache(s), Denies chills, Denies fever(s), Denies frequent falls and Denies headache(s) Eyes: Denies blurry vision Denies dysphagia, Denies vertigo, Denies dizziness and Denies headache(s) Cardiovascular: Denies chest pain and Denies dyspnea Respiratory: Denies cough and Denies dyspnea Gastrointestinal: Denies abdominal pain and Denies dysphagia Musculoskeletal: Reports back pain Skin/Breast: Denies rash Denies vertigo, Denies dizziness, Denies frequent falls and Denies headache(s) Mental Status Exam Mental Status Exam Narrative: Alert, oriented. Speech is clearer, reflective, without sx of blocking today. Affect flat, mood depressed with SI, perseverative sx Denies HI, AH,VH Patient Orientation: Person, Place and Situation Level of Consciousness: Alert Patient Behavior: Talkative Mood Description: Depressed Affect Description: Flat Patient Cognition Impaired: No Ability to Follow Directions: Fair Speech Pattern: Spontaneous Speech Memory Description: Episodic Impaired Diagnostics Vital Signs (24Hr): Vital Signs - 24 hr 02/02/24 20:00 02/03/24 08:52 Temperature 98.0 F 98.4 F Pulse Rate 69 92 Respiratory Rate 16 Blood Pressure 150/76 H 126/72 Pulse Oximetry 99 93 Oxygen Delivery Method Room Air Room Air BMI result Body Mass Index 34.3 Labs 01/29/24 20:16 01/31/24 08:46 Labs: Laboratory Results - last 48 hr 01/29/24 20:16 Lamotrigine 5.5 Medications Medications Current Medications Acetaminophen (Acetaminophen 325 Mg Tablet) 650 mg PO Q6H PRN PRN Reason: Headache/Pain Mild Scale (1-3) Last Admin: 02/02/24 20:21 Dose: 650 mg Al Hydroxide/Mg Hydroxide (Magnesium Hydrox/Alum Hydrox 30 Ml Oral.Susp) 30 ml PO Q6H PRN PRN Reason: Heartburn/Nausea Albuterol/Ipratropium (Albuterol/Iprat 2.5/0.5mg 3 Ml Ampul.Neb) 3 ml INHALE Q6H PRN PRN Reason: wheezing Clobazam (Clobazam 10 Mg Tablet) 15 mg PO BEDTIME [facility] Last Admin: 02/02/24 20:22 Dose: 15 mg Hydroxyzine HCl (Hydroxyzine Hcl 25 Mg Tablet) 25 mg PO Q6H PRN PRN Reason: Anxiety Last Admin: 02/01/24 15:33 Dose: 25 mg Hydroxyzine HCl (Hydroxyzine Hcl 25 Mg Tablet) 25 mg PO QID [facility] Last Admin: 02/03/24 08:24 Dose: 25 mg Lamotrigine (Lamotrigine 100 Mg Tablet) 300 mg PO BID [facility] Last Admin: 02/03/24 08:25 Dose: 300 mg Magnesium Hydroxide (Milk Of Magnesia 30 Ml Oral.Susp) 30 ml PO DAILY PRN PRN Reason: Constipation Melatonin (Melatonin 3 Mg Tablet) 6 mg PO BEDTIME PRN PRN Reason: Insomnia Last Admin: 02/02/24 21:03 Dose: 6 mg Nicotine (Nicotine 14 Mg Patch.Td24) 14 mg TRANSDERMA DAILY [facility] Last Admin: 02/02/24 08:36 Dose: 14 mg Nicotine Polacrilex (Nicotine Polacrilex 2 Mg Gum) 2 mg BUCCAL Q2H PRN PRN Reason: Nicotine Cravings Olanzapine (Olanzapine 5 Mg Tablet) 5 mg PO BEDTIME [facility] Last Admin: 02/02/24 20:21 Dose: 5 mg Sertraline HCl (Sertraline Hcl 100 Mg Tablet) 100 mg PO DAILY [facility] Last Admin: 02/03/24 08:24 Dose: 100 mg Topiramate (Topiramate 100 Mg Tablet) 100 mg PO BID [facility] Last Admin: 02/03/24 08:24 Dose: 100 mg Trazodone HCl (Trazodone Hcl 100 Mg Tablet) 100 mg PO BEDTIME [facility] Last Admin: 02/02/24 20:22 Dose: 100 mg Allergies Allergies Allergy/AdvReac Type Severity Reaction Status Date / Time erythromycin base Allergy Unknown UNKNOWN Verified 01/29/24 20:03 [Erythromycin Base] cyclobenzaprine AdvReac Intermediate Other Verified 01/29/24 20:03 [From Flexeril] Assessment & Plan Assessment & Plan (1) PTSD (post-traumatic stress disorder): Status: Acute Code(s): F43.10 - Post-traumatic stress disorder, unspecified (2) Bipolar disorder: Status: Acute Code(s): F31.9 - Bipolar disorder, unspecified (3) Alcohol dependence: Status: Acute Code(s): F10.20 - Alcohol dependence, uncomplicated Plan 01/31: Hydroxyzine 25 mg qid Pt is considering increases in Olanzapine/Sertraline for 02/01. Today, clarified with brother that he can return home and is still a valued family member. 02/01: Trazodone 100 mg HS Time Spent With Patient Time: Total time managing care of this patient today ____ minutes.
[2024-02-03] MEDS: Acetaminophen 325 MG TABLET 650 MG PO (11:53)
--- NOTE | 2024-02-03 11:54 | PC.NURSE ---
pt continues to have multiple petit mal seizures lasting 2-3 seconds every 4-5 minutes for last hour. PA notified via tiger text and e responded ok. I'll try and see him soon . Pt given tylenol to manage reported back pain and hydroxyzine for anxiety.. will continue to monitor
--- NOTE | 2024-02-03 12:59 | PC.NURSE ---
called Pharmacy for Dilantin as pyxis is out, pharmacy said it would be 15-20min before they can make it to the floor
[2024-02-03] MEDS: Phenytoin Sodium Extended 100 MG CAPSULE PO (13:05)
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
== END 2024-02-03 14:54 | disposition short-term general hospital (02) | DRG 753 ==
LOC: HO.ED 21:12 → HO.PM5 01-30 12:09
PROVIDERS: Physician Assistant; Admitting Provider Psychiatry & Neurology Psychiatry; Emergency Provider Internal Medicine; PCP Internal Medicine Geriatric Medicine; Visit Provider Clinical Nurse Specialist Psychiatric/Mental Health, Adult
DX: F31.9 Bipolar disorder, unspecified (principal); R45.851 Suicidal ideations; G40.909 Epilepsy, unspecified, not intractable, without status epilepticus; F43.10 Post-traumatic stress disorder, unspecified; F10.20 Alcohol dependence, uncomplicated; F17.210 Nicotine dependence, cigarettes, uncomplicated; Z71.6 Tobacco abuse counseling; Z79.899 Other long term (current) drug therapy
CPT/HCPCS: 36415; 80048; 80053; 80061; 80076; 80143; 80175; 80179; 80185; 80307; 83735; 85025; 90656; 93005; 99285; S9485

== ENCOUNTER → 2024-01-30 11:34 | Outpatient (BNV) | payer MEDICAID, SELFPAY | PROVIDERS: Admitting Provider Psychiatry & Neurology Psychiatry; Emergency Provider Internal Medicine; PCP Internal Medicine Geriatric Medicine; Visit Provider Internal Medicine | DX: I44.0 Atrioventricular block, first degree (principal) | CPT/HCPCS: 93010 ==

== ENCOUNTER → 2024-01-30 11:58 | Outpatient (BNV) | payer OTHER, SELFPAY | PROVIDERS: Admitting Provider Psychiatry & Neurology Psychiatry; Emergency Provider Internal Medicine; PCP Internal Medicine Geriatric Medicine; Visit Provider Clinical Nurse Specialist Psychiatric/Mental Health, Adult | DX: F31.4 Bipolar disorder, current episode depressed, severe, without psychotic features (principal); F10.20 Alcohol dependence, uncomplicated; F43.11 Post-traumatic stress disorder, acute | CPT/HCPCS: 99232 ==

== ENCOUNTER 2024-02-03 14:57 | Outpatient (BNV) | payer MEDICAID, SELFPAY | END 2024-02-07 15:00 | PROVIDERS: Admitting Provider Nurse Practitioner Acute Care; PCP Internal Medicine Geriatric Medicine; Visit Provider Internal Medicine Cardiovascular Disease | DX: R56.9 Unspecified convulsions (principal) | CPT/HCPCS: 93010 ==

== ENCOUNTER 2024-02-03 14:57 | Inpatient (IN) | payer MEDICAID, SELFPAY ==
--- NOTE | ~2024-02-03 | XR_ITS ---
EXAMINATION: XR CHEST CLINICAL INFORMATION: Seizure. Evaluate for infection. COMPARISON: Most recent chest radiograph dated 10/06/2020. TECHNIQUE: Frontal view of the chest was obtained. FINDINGS: The lungs are clear. The cardiomediastinal silhouette is normal in size. There is no pleural effusion or pneumothorax. No acute osseous abnormality. XR/XR chest 1V IMPRESSION: No acute cardiopulmonary findings. Electronically signed by: Angel Slater MD 02/03/2024 04:27 PM [facility]
--- NOTE | 2024-02-03 14:54 | P.HPHOSP_ITS ---
History of Present Illness Date of Service: 02/03/24 Chief Complaint: Seizure 43 year old man with a hx of seizure disorder, epilsepsy and bipolar disorder. He was admitted to and started having seizure like activity throughout the night and this morning. no tonic clonic seizing noted. no LOC, hemodynamically stable. No fever or chills. Review of Systems 2 Review of Systems: Denies any recent fever chills or decrease in appetite respiratory denies any shortness of breath or cough cardiovascular denied chest pain gastrointestinal denies any dysphagia abdominal pain nausea vomiting or diarrhea genitourinary denies any dysuria frequency or hematuria musculoskeletal denies any joint pain or swelling neuropsych denies any weakness or seizures all other systems reviewed are negative [facility] Medical History COPD (chronic obstructive pulmonary disease) Alcohol dependence Bipolar disorder Intractable epilepsy Social History Household Members: Unknown / Unable to assess Household Members Other:: Brothers & uncle Housing: House Do you presently have visiting nurse or other home services: Yes Alcohol intake: current Alcohol intake frequency: holidays/special occasions only Alcohol type: beer and hard liquor Comment: 1:1 sitter for SI Patient Tobacco Use Status: Tobacco use Unknown Tobacco use type: Cigarette Cigarette Packs Per Day: 0.5 Cigarettes Per Day: 15 e-Cigarette/Vaping Use: Never Used Second Hand Smoke Exposure: No Use of substances other than those prescribed or required for medical reasons: Unknown Currently Displaying Signs/Symptoms of Drug Intoxication Withdrawal: No Hoahaoism Healthcare Practices: none Advance Directives: No Advance Directives Information Provided: No Advance Directives on File: No Do you have a plan to hurt others: No Plan service: No Sexual orientation: Straight/Heterosexual Meds Allergies Allergy/AdvReac Type Severity Reaction Status Date / Time erythromycin base Allergy Unknown UNKNOWN Verified 01/29/24 20:03 [Erythromycin Base] cyclobenzaprine AdvReac Intermediate Other Verified 01/29/24 20:03 [From Flexeril] Active Medications: Current Medications Acetaminophen (Acetaminophen 325 Mg Tablet) 650 mg PO Q6H PRN PRN Reason: Pain, Mild (Pain Scale 1-3), fever or headache Calcium Carbonate (Calcium Carbonate 750 Mg Tab.Chew) 750 mg PO Q4H PRN PRN Reason: Heartburn Heparin Sodium (Porcine) (Heparin Sodium,Porcine 5,000 Unit/Ml Vial) 5,000 unit SUBCUT Q12H MISSY Lorazepam (Lorazepam 2 Mg/Ml Vial) 1 mg IVPUSH Q4H PRN PRN Reason: Seizures Magnesium Hydroxide (Milk Of Magnesia 30 Ml Oral.Susp) 30 ml PO DAILY PRN PRN Reason: Constipation Melatonin (Melatonin 3 Mg Tablet) 6 mg PO BEDTIME PRN PRN Reason: Insomnia Phenytoin Sodium (Phenytoin Sodium 100 Mg/2 Ml Vial) 100 mg IVPUSH TID MISSY Sodium Chloride (0.9 % Sodium Chloride Flush 3 Ml Syringe) 3 ml IVFLUSH QSHIFT [facility] Home Medications ?Medication ?Instructions ?Recorded ?Confirmed ?Last Taken ?Type melatonin 3 mg tablet 6 mg PO BEDTIME PRN Insomnia 02/03/24 02/03/24 Unknown History Physical Exam 2 Vital Signs and Narrative: Appearing in no acute distress head is normocephalic atraumatic eyes pupils are PERRLA sclera is anicteric mouth throat mucous membranes are intact and moist neck is supple no lymphadenopathy, no JVD noted lung sounds are clear to auscultation heart regular rate rhythm, clear S1, S2 positive bowel sounds, abdomen is soft, nontender neuro patient is alert x3, no focal deficits Results Labs 02/03/24 15:17 02/03/24 15:17 Assessment and Plan (1) Bipolar disorder: Status: Acute (2) Breakthrough seizure: Status: Acute Plan 43 year old man with a hx of seizure disorder, epilsepsy and bipolar disorder. He was admitted to and started having seizure like activity throughout the night and this morning. no tonic clonic seizing noted. no LOC, hemodynamically stable. No fever or chills. Seizure disorder/epilepsy had been on clobazam previous positive EEG started dilantin TID IV Neurology consultation r/o infection>CXR, UA, labs seizure precautions Bipolar/mental health continue medications started in [facility] Psych consultation for med management COPD no exacerbation albuterol as needed DVT prophylaxis with heparin Quality Stroke Does the patient have a stroke diagnosis?: No VTE Prior VTE?: No VTE Risk Level:: Medical - moderate - high VTE Device Contraindication: Treatment Not Indicated VTE Drug Contraindication: N/A - Med Ordered
--- OUTSIDE RECORDS SUMMARY | 2024-02-03 15:00 | XMS_ITS | Continuity of Care Document ---
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 Name Role Phone Not on Staff, PCP Primary Care Physician Unavail able Encounter [facility] [place] Date(s): 11/20/23 - 11/21/[address] [address]- Encounter Diagnosis Generalized tonic clonic epilepsy(Final) - 11/20/23 Discharge Disposition: A-D/C Home Attending Physician: Hedy Haines MD Admitting Physician: Zev Pandya MD Referring Physician: Not on Staff, Referring MD Allergies, Adverse Reactions, Alerts Substance Reaction Severity Status erythromycin rash Active Medications clobazam 10 mg oral tablet = 5 mg, By Mouth, Daily in AM, 0 Refills, Maintenance, 11/21/23 11:10:00 EDT, Tablet, Partial fill upon patient request if the prescription is for a schedule II opioid drug. Start Date: 11/21/23 Status: Ordered clobazam 10 mg oral tablet = 10 mg, By Mouth, Daily at bedtime, # 30 tablet, 3 Refills, Maintenance, 11/21/23 11:14:00 EDT, Tablet, [facility], Partial fill upon patient request if the prescription is for a schedule II opioid drug., 180, cm, 11/20/23 14:48:00 EDT,... Start Date: 11/21/23 Status: Ordered clonazePAM 0.5 mg oral tablet 1 tablet = 0.5 mg, By Mouth, Daily in AM, # 30 tablet, 0 Refills, Maintenance, 04/24/21 9:30:00 EST, Tablet, [facility]/pharmacy #[id number], Partial fill upon patient request if the prescription is for a schedule II opioid drug., 101.81, cm, 04/24/21 8:52:00 EST,... Start Date: 04/24/21 Status: Ordered clonazePAM 1 mg oral tablet 1 tablet = 1 mg, By Mouth, Daily at bedtime, While in hosp, # 30 tablet, 0 Refills, Maintenance, 04/24/21 9:31:00 EST, Tablet, [facility]/pharmacy #[id number], Partial fill upon patient request if the prescription is for a schedule II opioid drug., 101.81, cm, 02... Start Date: 04/24/21 Status: Ordered Combivent Respimat [...] 03/31/21 12:38:00 EST, Route to Pharmacy Electronically, [facility], Partial fill upon patient [...] opioid drug. Start Date: 12/01/21 Status: Ordered olanzapine 5 mg oral tablet 5 mg, 1, tablet, By Mouth, Daily at bedtime, # 30 tablet, Refills 0, Maintenance, 11/20/23 8:26:00 EDT, Partial fill upon patient request if the prescription is for a schedule II opioid drug. Start Date: 11/20/23 Status: Ordered phenytoin 200 mg oral capsule, extended release = 200 mg, By Mouth, Daily in AM, 0 Refills, Maintenance, 11/21/23 11:11:00 EDT, ER Capsule, Partialfill upon patient request if the prescription is for a schedule II opioid drug. Start Date: 11/21/23 Status: Ordered phenytoin 300 mg oral capsule, extended release = 300 mg, By Mouth, Daily at bedtime, 0 Refills, Maintenance, 11/21/23 11:11:00 EDT, ER Capsule, Partial fill upon patient request if the prescription is for a schedule II opioid drug. Start Date: 11/21/23 Status: Ordered sertraline 50 mg oral tablet 1 tablet = 50 mg, By Mouth, Daily, # 30 tablet, 0 Refills, Maintenance, 09/11/21 13:41:00 EDT, Tablet, Partial fill upon patient request if the prescription is for a schedule II opioid drug. Start Date: 09/11/21 Status: Ordered traZODone 50 mg oral tablet 50 mg, 1, tablet, By Mouth, Daily at bedtime, # 30 tablet, Refills 0, Maintenance, 11/20/23 8:26:00EDT, Partial fill upon patient request if the prescription is for a schedule II opioid drug. Start Date: 11/20/23 Status: Ordered Vitamin B1 100 mg oral tablet 100 mg, 1, tablet, By Mouth, Daily Start Date: 07/29/21 Status: Ordered Problem List Condition Confirmation Course Effective Dates Status H ealth Status Informant COPD without exacerbation Confirmed Active COVID Confirmed Active Obese class I Confirmed Active Obesity Confirmed Active Polysubstance abuse Confirmed Active Results Radiology Reports * Exam Date Time Procedure Performing Provider Status 11/19/23 10:[address] Cervical Spine W/O Contrast William Grossman (Verified) Notes: (CT Cervical Spine W/O Contrast) Reason For Exam: Neck trauma, dangerous injury mechanism;Other: RESULT: CT Cervical Spine W/O Contrast CT Head/Brain W/O Contrast, CT Cervical Spine W/O Contrast INDICATION: Hx of Present Illness: Sz; Reason: Trauma; Clinical Question(s): Hematoma TECHNIQUE: Noncontrast head CT using axial technique was reconstructed in axial and coronal planes.Noncontrast spiral CT through the cervical spine was formatted in 3 planes. Automatic tube modulation was used for the cervical spine and iterative dose reconstruction was used for both the head and cervical spine to optimize scan parameters and image quality. CTDIvol Body: 17.00 mGy, DLP Body: 449 mGy*cm. CTDIvol Head: 39.70 mGy, DLP Head: 672 mGy*cm. COMPARISON: 04/23/2023. FINDINGS: Electrical Discharge Machine Operator View Findings, Lines and Tubes: None. BRAIN AND EXTRA-AXIAL SPACES: No parenchymal hemorrhage, midline shift, or mass effect. Luke-white matter differentiation is wellpreserved. No acute infarct. Ventricles, sulci, and basilar cisterns are normal. Similar appearance of prominent CSF space in the posterior fossa, which may represent an arachnoid cyst, patsy cisterna magna, or Dandy-Walker malformation. No white matter lesions. No subarachnoid hemorrhage. No subdural or epidural collection. CALVARIUM, SKULL BASE, AND SOFT TISSUES: No fractures or suspicious bony lesions. Patient is edentulous. There is a cystic lesion in the left maxillary bone measuring 1.2 cm (image 31, series 301). Mild to moderate mucosal thickening in ethmoid air cells and frontal sinuses. Remainder of the paranasal sinuses and mastoid air cells are clear. Visualized orbits and globes are intact. The extracranial soft tissues are unremarkable. CERVICAL SPINE: No fracture. No acute osseous abnormalities. Unchanged fragmentation of C3 spinous process.. Normal alignment. No locked or perched facet. Mild multilevel degenerative disc space narrowing andend plate irregularity. OTHER BONES: No acute abnormality. CERVICAL SOFT TISSUES AND LUNG APICES: Normal soft tissues. Visualized lung apices are clear. IMPRESSION: 1. No acute abnormality of the head or cervical spine. 2. A cystic lesion in the left maxillary bone could represent a periodontal cyst. Please correlate with patient's symptoms. 3. Additional chronic findings as detailed above. WSN: [id number] Ordering Physician: Teresa Eid Dictated By: Genaro Almeida MD Dictated Date/Time: 11/19/23 10:52 p Reviewed By: Genaro Almeida MD Signed By: Genaro Almeida MD Signed Date/Time: 11/19/23 10:52 pm Transcribed By: JOJO Transcribed Date/Time: 11/19/23 10:42 pm * Exam Date Time Procedure Performing Provider Status 11/19/23 10:[address] Head/Brain W/O Contrast Fany Abraham; Auth (Verified) Notes: (CT Head/Brain W/O Contrast) Reason For Exam: Trauma RESULT: CT Head/Brain W/O Contrast CT Head/Brain W/O Contrast, CT Cervical Spine W/O Contrast INDICATION: Hx of Present Illness: Sz; Reason: Trauma; Clinical Question(s): Hematoma TECHNIQUE: Noncontrast head CT using axial technique was reconstructed in axial and coronal planes.Noncontrast spiral CT through the cervical spine was formatted in 3 planes. Automatic tube modulation was used for the cervical spine and iterative dose reconstruction was used for both the head and cervical spine to optimize scan parameters and image quality. CTDIvol Body: 17.00 mGy, DLP Body: 449 mGy*cm. CTDIvol Head: 39.70 mGy, DLP Head: 672 mGy*cm. COMPARISON: 04/23/2023. FINDINGS: Electrical Discharge Machine Operator View Findings, Lines and Tubes: None. BRAIN AND EXTRA-AXIAL SPACES: No parenchymal hemorrhage, midline shift, or mass effect. Luke-white matter differentiation is wellpreserved. No acute infarct. Ventricles, sulci, and basilar cisterns are normal. Similar appearance of prominent CSF space in the posterior fossa, which may represent an arachnoid cyst, patsy cisterna magna, or Dandy-Walker malformation. No white matter lesions. No subarachnoid hemorrhage. No subdural or epidural collection. CALVARIUM, SKULL BASE, AND SOFT TISSUES: No fractures or suspicious bony lesions. Patient is edentulous. There is a cystic lesion in the left maxillary bone measuring 1.2 cm (image 31, series 301). Mild to moderate mucosal thickening in ethmoid air cells and frontal sinuses. Remainder of the paranasal sinuses and mastoid air cells are clear. Visualized orbits and globes are intact. The extracranial soft tissues are unremarkable. CERVICAL SPINE: No fracture. No acute osseous abnormalities. Unchanged fragmentation of C3 spinous process.. Normal alignment. No locked or perched facet. Mild multilevel degenerative disc space narrowing andend plate irregularity. OTHER BONES: No acute abnormality. CERVICAL SOFT TISSUES AND LUNG APICES: Normal soft tissues. Visualized lung apices are clear. IMPRESSION: 1. No acute abnormality of the head or cervical spine. 2. A cystic lesion in the left maxillary bone could represent a periodontal cyst. Please correlate with patient's symptoms. 3. Additional chronic findings as detailed above. WSN: [id number] Ordering Physician: Teresa Eid Dictated By: Genaro Almeida MD Dictated Date/Time: 11/19/23 10:52 p Reviewed By: Genaro Almeida MD Signed By: Genaro Almeida MD Signed Date/Time: 11/19/23 10:52 pm Transcribed By: JOJO Transcribed Date/Time: 11/19/23 10:42 pm * Exam Date Time Procedure Performing Provider Status 11/19/23 10:04 PM Chest 2 Views Frontal and Lat Yanet Dumont; Auth (Verified) Notes: (Chest 2 Views Frontal and Lat) Reason For Exam: Shortness of Breath, Fever;Other: RESULT: Chest 2 Views Frontal and Lat Chest 2 Views Frontal and Lat Hx of Present Illness: Sz; Reason: Other:; Shortness of Breath, Fever; Clinical Question(s): Pneumonia COMPARISON: 08/27/2023 FINDINGS: LINES AND TUBES: None. LUNGS AND PLEURA: Low lung volumes with mild basilar atelectasis. Lungs are otherwise clear with no consolidation. No pleural effusion. No pneumothorax. HEART, MEDIASTINUM AND VELMA: Heart is normal in size. Normal mediastinal and hilar contour. BONES AND SOFT TISSUES: No acute abnormality. IMPRESSION: No acute abnormality. WSN: [id number] Ordering Physician: Teresa Eid Dictated By: Harvey Acevedo MD Dictated Date/Time: 11/19/23 10:12 p Reviewed By: Harvey Acevedo MD Signed By: Harvey Acevedo MD Signed Date/Time: 11/19/23 10:12 pm Transcribed By: JOJO Transcribed Date/Time: 11/19/23 10:11 pm Vital Signs Most recent to oldest [Reference Range]: 1 2 3 Height 180 cm (11/20/23 2:48 PM) 180 cm (11/20/23 11:45 AM) 180 cm (11/20/23 8:13 AM) Weight 109 kg (11/20/23 8:13 AM) Oxygen Saturation [94-100 %] 93 % *L* (11/21/23 3:00 PM) 98 % (11/21/23 11:00 AM) 92 % *L* (11/21/23 7:00 AM) Pulse Rate [55-90 bpm] 70 bpm (11/21/23 3:00 PM) 63 bpm (11/21/23 11:00 AM) 71 bpm (11/21/23 7:00 AM) Body Mass Index [18.5-24.99 kg/m2] 33.64 kg/m2 *>HHI* (11/20/23 8:13 AM) Blood Pressure [90-138/55-84 mm Hg] 119/60mm Hg (11/21/23 3:00 PM) 121/68mm Hg (11/21/23 11:00 AM) 141/76mm Hg *H* (11/21/23 7:00 AM) Respiratory Rate [16-30 br/min] 16 br/min (11/21/23 3:00 PM) 18 br/min (11/21/23 11:00 AM) 16 br/min (11/21/23 7:00 AM) Temperature [96.8-100.4 DegF] 98.1 DegF (11/21/23 3:00 PM) 98.6 DegF (11/21/23 11:00 AM) 98.3 DegF (11/21/23 7:00 AM) Mode of Delivery (Oxygen) Room air (11/21/23 3:00 PM) Room air (11/21/23 11:00 AM) Nasal cannula (11/21/23 7:00 AM) Blood pressure sites Arm, left (11/21/23 3:00 PM) Arm, left (11/21/23 11:00 AM) Arm, left (11/21/23 7:00 AM) Temperature Route Oral (11/21/23 3:00 PM) Oral (11/21/23 11:00 AM) Oral (11/21/23 7:00 AM) Dry Weight 109 kg (11/20/23 8:13 AM) Weight Obtained Via Patient/family state d (11/20/23 8:13 AM) Dry Weight Obtained Via Patient/family s tated (11/20/23 8:13 AM) Social History Social History Type Response Smoking Status 5-9 cigarettes (betw een 1/4 to 1/2 pack)/day in last 30 days; Interested in cessation: No entered on: 08/17/22 Sex History and physical note * Geeta AVILA, Cody: PERFORM, MODIFY Event Display: History and Physical Hospital Authored Date: Patient: ??RAND WILKERSON ? Age:??43 Years?Sex:??Male?:??1980?? Chief Complaint/Reason for Consultation Pt coming from home s/p 2 seizures. Pt's family found pt on ground during 1st sz, EMS witnessed 2ndsz (tonic-clonic), lasted ~1min and broke on own. +sz hx, unk sz meds. Pt arrived postictal w/ c/o back pain. History of Present Illness Mr.St Britton is a 43 years old male with PMHx of tonic-clonic epilepsy on multiple AEDs, COPD, obesity, substance abuse, bipolar (by chart review), presented to ER due to 2 tonic-clonic seizure witnessed by family and extra episode of seizure in ER that lasted 1 min resolved spontaneously with post-ictal afterwards. ER workup showed unremarkable labs and imaging also without acute abnormalities. Patient received some of home AEDs and now admitted for further care. ?? No breakthrough seizure overnight. Patient is alert and oriented, coherent and cooperative, intermittent involuntary myoclonus movement in arms noted, he is answering questions appropriately and not in apparent distress. Endorse epilepsy since few months old and has not been well controlled, with breakthrough seizure roughly once per week, recent admission to [facility] for this as well. He endorsed compliance to all meds but there has been adjustment lately as he is started on Clobazam and no longer takes Depakote or Keppra. ROS is largely negative otherwise. We reviewed plan of care. Review of Systems Constitutional:??No weight loss, fever, chills, weakness or fatigue. HEENT:??No visual loss, blurred vision, double vision or yellow sclera. No hearing loss, sneezing, congestion, runny nose or sore throat. Skin:??No rash or itching. Cardiovascular:??no chest pain Respiratory:??No shortness of breath, cough or sputum production. Gastrointestinal:??No anorexia, nausea, vomiting or diarrhea. No abdominal pain or blood in stool. Genitourinary:??No burning micturition. No urinary frequency or incontinence. Neurologic:??No headache, dizziness, syncope, unilateral weakness, ataxia, numbness or tingling in the extremities. No change in bowel or bladder control. + seizure last night. Musculoskeletal:??No muscle pain, back pain, joint pain or stiffness. Hematologic:??No bleeding or bruising. Psychiatric:??No depression or anxiety. Endocrine:??No reports of sweating. No cold or heat intolerance. No polyuria or polydipsia. Objective Measurements?? Height: 180 cm (11/20/23) Weight: 109 kg (11/20/23) Dry Weight: 109 kg (11/20/23) Body Mass Index:??33.64 kg/m2??Critical (11/20/23) ? Vital Signs?? Temperature: 97.5 DegF (11/20/23 11:45:00) Temperature Route: Oral (11/20/23 11:45:00) Pulse Rate: 82 bpm (11/20/23 11:45:00) Respiratory Rate: 19 br/min (11/20/23 11:45:00) Systolic Blood Pressure: 121 mm Hg (11/20/23 11:45:00) Diastolic Blood Pressure: 73 mm Hg (11/20/23 11:45:00) Blood pressure sites: Arm, right (11/20/23 11:45:00) Mean Arterial Pressure: 89 mm Hg (11/20/23 11:45:00) Pulse Pressure: 48 mm Hg (11/20/23 11:45:00) Oxygen Saturation: 100 % (11/20/23 11:45:00) Mode of Delivery (Oxygen): Room air (11/20/23 11:45:00) Early Warning Score: 2 (11/20/23 12:09:18) ? Perfusion Assessment Capillary Refill: < 3 seconds (11/20/23 03:44:00) Cardiac Rhythm: Normal sinus rhythm (11/20/23 03:44:00) Cardiovascular Assessment Status: Unchanged from recorder's assessment (11/20/23 00:48:00) Cardiovascular Comment: Pt denies chest pain (11/20/23 03:44:00) Cardiovascular Symptoms: None (11/20/23 03:44:00) Nail Bed Color, Fingers: [place] (11/20/23 03:44:00) Skin Temperature Lower Extremities: Warm (11/20/23 03:44:00) Skin Temperature Upper Extremities: Warm (11/20/23 03:44:00) ? Pain Scores FACES Scale Score: 0 (19:39) ?? Intake/Output? 11/19 02:09 11/19 07:00 11/18 07:00 11/17 07:00 11/16 07:00 ?? 11/19 12:15 11/19 12:15 11/19 06:59 11/18 06:59 11/17 06:59 Intake ?480 ?480 ?0 ?0 ?0 Output ?300 ?300 ?0 ?0 ?0 Net Total ?180 ?180 ?0 ?0 ?0 ? Precautions Seizure Precautions Suicide Precautions ? Physical Exam Constitutional: Alert, in no acute distress. Head EENT: Extraocular muscle movement intact.??Moist mucous membranes.?? Respiratory: Clear to auscultation. No wheezing or crackles. No use of accessory muscles. Cardiovascular: S1S2 regular. No murmurs, rubs or gallops. Gastrointestinal: Abdomen soft, non-tender, non-distended. Normal bowel sounds. Extremities: No lower extremity pitting??edema. No cyanosis or clubbing. Neurologic: AAOx3, Speech normal. No focal neurological deficits. Occasional involuntary movement. Skin: No rash. Psychiatric: Normal mood and affect Assessment/Plan ?? Generalized tonic clonic epilepsy ??(G40.309) -frequent up to weekly breakthrough seizure and presented with 2 tonic-clonic seizure back to back,labs and brain CT non-acute, clinically no evidence of withdrawal, no longer post-ictal -on multiple AEDs with recent adjustment, per patient he is currently on: Dilantin 200 mg in AM atp490 mg in PM (cannot verify by external refill history), Lamictal 300 mg bid, clobazam 5 mg bid, nolonger on Keppra, Depakote or Klonopin -resume home meds but Dilantin drug level is slightly supratherapeutic, but I do not believe it will exert seizure itself, he already missed??1 dose from last night,??discussed with pharmacist will give AM dose while await neurology input ?? Addendum: neuro consult appreciated, increase clobazam to 5 mg in AM and 10 mg qhs, continue Dilantin the same dose, utox pending. ?? COPD without exacerbation ??(J44.9) -albuterol prn ?? Alcohol abuse ??(F10.10) -evasive about if there is active ETOH use, told ER last drink was 3-4 days ago but denied active ETOH to me, no evidence of withdrawal, monitor CIWA for now ?? Bipolar disorder ??(F31.9) Suicidal ideation ??(R40.161) -during PHQ screening patient endorsed recent SI/HI with plan within past month but no active SI today, discussed with behavioral team will place formal consult -SI precaution -continue Zoloft and trazodone ?? Discussed with RN/neurology/pharmacist. Reviewed ER provider note, labs, imaging,??and previous admissions/neurology workup. ?? VTE Prophylaxis:??Lovenox ?VTE Prophylaxis Assessment:??VTE Prophylaxis Ordered ?? Discharge Planning:??Home ?? Ongoing Medical Necessity:??Neuro and psych consult, monitor for breakthrough seizure? Code Status:??Full ?Order Code Status:??Code Status Ordered ?Order Date/Time ??Order Action ??Order Name ??Order Detail ??11/20/2023 12:13 ??Order ??Enoxaparin 40 mg Inj ??40 mg, 0.4 mL, Subcutaneous Injection, Every 24 hours ??11/20/2023 11:58 ??Order ??Suicide Precautions ??11/20/23 11:58:00 EDT ??11/20/2023 11:55 ??Order ??Full Code (Confirmed) ??Full Resuscitation, 11/20/23 11:55:00 EDT ??11/20/2023 11:54 ??Discontinue ??Psych Consult (Adult) ??11/20/23 10:30:04 EDT ??11/20/2023 11:54 ??Order ??VTE Prophylaxis Guidelines ??11/20/23 11:54:00 EDT ??11/20/2023 11:53 ??Order ??Psych Consult (Adult) ??Consultation, Reason: SI on admission screen, 11/20/23 11:53:00 EDT ??11/20/2023 09:06 ??Modify ??Sertraline 25 mg Tablet ??75 mg, By Mouth, Daily ??11/20/2023 08:52 ??Order ??Lorazepam 2 mg Inj Syringe ??2 mg, IV Push Slowly, Once, PRN: Seizure Activity ??11/20/2023 08:51 ??Modify ??Phenytoin 100 mg ER Capsule ??200 mg, By Mouth, Daily in AM ??11/20/2023 08:51 ??Order ??Phenytoin 100 mg ER Capsule ??200 mg, By Mouth, Daily in AM ??11/20/2023 08:49 ??Cancel ??Keppra 500mg Tablet ??2,000 mg, tablet, By Mouth, 2 times a day ??11/20/2023 08:28 ??Order ??Attending MD ??Geeta AVILA, Cody, 11/20/23 8:28:00 EDT ??11/20/2023 08:28 ??Discontinue ??Covering Physician/ANNI Beeper ??Pager Number: [phone] until assigned, 11/20/23 2:09:00 EDT ??11/20/2023 08:27 ??Order ??Consult Neurology (Adult) ??Consultation, Consult Type Seizure/Epilepsy, Reason: breakthrough seizure on 4 AEDs, 11/20/23 8:27:00 EDT ??11/20/2023 08:26 ??Modify ??Sertraline 25 mg Tablet ??75 mg, By Mouth, Daily ??11/20/2023 08:25 ??Cancel ??Clonazepam 1 mg Tablet ??1 mg, tablet, By Mouth, Daily at bedtime ??11/20/2023 08:25 ??Order ??Clobazam 10 mg Tablet ??5 mg, By Mouth, 2 times a day ??11/20/2023 08:25 ??Order ??Clonazepam 1 mg Tablet ??1 mg, tablet, By Mouth, Daily at bedtime ??11/20/2023 08:25 ??Cancel ??Clonazepam 0.5 mg Tablet ??0.5 mg, tablet, By Mouth, Daily in AM ??11/20/2023 08:23 ??Order ??Thiamine 100 mg Tablet ??100 mg, tablet, By Mouth, Daily ??11/20/2023 08:23 ??Order ??Sertraline 25 mg Tablet ??50 mg, tablet, By Mouth, Daily ??11/20/2023 08:23 ??Order ??Keppra 500mg Tablet ??2,000 mg, tablet, By Mouth, 2 times a day ??11/20/2023 08:23 ??Order ??LamoTRIGINE 100 mg Tablet ??300 mg, By Mouth, 2 times a day ??11/20/2023 08:23 ??Order ??Folic Acid 1 mg Tablet ??1 mg, tablet, By Mouth, Daily ??11/20/2023 08:23 ??Order ??Clonazepam 0.5 mg Tablet ??0.5 mg, tablet, By Mouth, Daily in AM ? Estimated Discharge Date ? Histories Allergies Allergies ?(Active and Proposed Allergies Only) erythromycin? (Severity: Unknown severity, Onset: Unknown) ?Reactions: rash ? Past Medical History/Problem List Active Problems(5) COPD without exacerbation COVID Obese class I Obesity Polysubstance abuse ? Past Surgical History Denied ? Social History Alcohol Details:??Use: Current. ??Frequency: [...] ??Interested in cessation: No. ? Family History No??pertinent family history ? Functional Assessments Ambulatory devices needed: None Feeding Assistance: Independent ? Medications Home Medications Albuterol/Ipratropium (Combivent Respimat [...] 5 mg oral tablet)?1?tab(s)?5?Milligram?By Mouth?Daily at bedtime Olanzapine (olanzapine 5 mg oral tablet)?5?Milligram?1?tablet?By Mouth?Daily at bedtime Polyethylene Glycol 3350 (MiraLax oral powder for reconstitution)?17?gram?By Mouth?Daily Sertraline (sertraline 50 mg oral tablet)?1?tab(s)?50?Milligram?By Mouth?Daily Thiamine (Vitamin B1 100 mg oral tablet)?100?Milligram?1?tablet?By Mouth?Daily Trazodone (traZODone 50 mg oral tablet)?50?Milligram?1?tablet?By Mouth?Daily at bedtime ? Inpatient Medications Medications (18) Active SCHEDULED: (8) Clobazam 10 mg Tablet (clobazam 10 mg oral tablet) ??5 mg, By Mouth, 2 times a day Enoxaparin 40 mg Inj (Enoxaparin Inj) ??40 mg 0.4 mL, Subcutaneous Injection, Every 24 hours Folic Acid 1 mg Tablet (folic acid 1 mg oral tablet) ??1 mg, By Mouth, Daily LamoTRIGINE 100 mg Tablet (lamotrigine 100 mg oral tablet) ??300 mg, By Mouth, 2 times a day NaCl 0.9% Flush 3ml (NaCL 0.9% Flush) ??3 mL, IV Push, Every 8 hours Phenytoin 100 mg ER Capsule (Dilantin Capsule) ??200 mg, By Mouth, Daily in AM Sertraline 25 mg Tablet (sertraline 25 mg oral tablet) ??75 mg, By Mouth, Daily Thiamine 100 mg Tablet (Vitamin B1 100 mg oral tablet) ??100 mg, By Mouth, Daily CONTINUOUS: (0) PRN: (10) Acetaminophen 325 mg Tablet (Acetaminophen Tablet) ??650 mg, By Mouth, Every 4 hours Dextromethorphan-Guaifenesin 20 mg-200 mg/10 mL Liqu UD (Robitussin DM Liquid) ??10 mL, By Mouth, Every 4 hours Docusate Sodium 100 mg Capsule (Docusate Sodium Capsule) ??100 mg 1 capsule, By Mouth, 2 times a day Lorazepam 2 mg Inj Syringe (Ativan Inj) ??2 mg, IV Push Slowly, Once Melatonin 3 mg Tablet (Melatonin Tablet) ??3 mg, By Mouth, Daily at bedtime NaCl 0.9% Flush 3ml (NaCL 0.9% Flush) ??3 mL, IV Push, Every 8 hours Ondansetron 2mg/mL Inj (2mL Vial) (Ondansetron Inj) ??4 mg, IV Push Slowly, Every 30 minutes Polyethylene Glycol 17 Gm Powder (MiraLax Powder) ??17 Gm 1 pack/packet, By Mouth, Daily Senna Tablet ??8.6 mg 1 tablet, By Mouth, 2 times a day Simethicone 80 mg Chewable Tablet (Simethicone Tablet) ??80 mg, Chew, 3 times a day ? Durable Medical Equipment Discharge recommendations: Home (08/29/23) Name of Agency #1: [facility] (08/29/23) Service Categories #1: Retirement (08/29/23) Service Comments #1: [facility] will continue to provide intermediate. Someone will contact you to arrange a visit once you have been discharged home. If you do not hear from anyone in 1-2 days,please contact the agency (08/29/23) Ambulatory devices needed: None (11/20/23) ? Results Recent Labs BLOOD COUNT & DIFF WBC 6.8 k/mm3 ()?? 11/19/2023 21:39 RBC 4.13 m/mm3 (Low)?? 11/19/2023 21:39 Hgb 12.7 Gm/dL (Low)?? 11/19/2023 21:39 Hct 39.2 % (Low)?? 11/19/2023 21:39 MCV 94.9 femtoliters (High)?? 11/19/2023 21:39 MCH 30.8 pg ()?? 11/19/2023 21:39 MCHC 32.4 g/dL (Low)?? 11/19/2023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 (11/19/23) Ethanol, Serum or Plasma: NONE DETECTED (11/19/23) Glucose Level: 92 mg/dL (11/19/23) Glucose, POC: 79 mg/dL (11/19/23) Glucose, Urine: NEGATIVE (11/19/23) Granular Cast: 1 /LPF (11/19/23) Hct:??39.2 %??Low (11/19/23) Hemoglobin, Urine: NEGATIVE (11/19/23) Hgb:??12.7 Gm/dL??Low (11/19/23) Hold Urine Culture: Testing available 48 hours from time of collection. (11/19/23) Imm Gran: 0.3 % (11/19/23) Ketones, Urine: 1+ Abnormal (11/19/23) Leukocyte, Urine: NEGATIVE (11/19/23) Lymph %: 20.8 % (11/19/23) Magnesium: 2.1 mg/dL (11/19/23) MCH: 30.8 pg (11/19/23) MCHC:??32.4 g/dL??Low (11/19/23) MCV:??94.9 femtoliters??High (11/19/23) Allen %: 6.3 % (11/19/23) MPV: 10.4 femtoliters (11/19/23) Mucus: SLIGHT (11/19/23) Neut %: 71.1 % (11/19/23) Nitrite, Urine: NEGATIVE (11/19/23) Nucleated RBC (Automated): 0 #/100 WBC'S (11/19/23) pH, Urine: 6 (11/19/23) Platelet Count: 163 k/mm3 (11/19/23) Potassium: 4.3 mmol/L (11/19/23) Protein, Total: 7.1 Gm/dL (11/19/23) RBC:??4.13 m/mm3??Low (11/19/23) RBC's, Urine: 2 /HPF (11/19/23) RDW-SD:??49.1 femtoliters??High (11/19/23) Sodium: 141 mmol/L (11/19/23) Specific Hannibal, Urine: 1.028 (11/19/23) Urobilinogen: NORMAL (11/19/23) Valproic Level:??<2.8??Low (11/19/23) WBC: 6.8 k/mm3 (11/19/23) WBC's, Urine: 1 /HPF (11/19/23) * Roderick Tijerina DO: PERFORM Event Display: Consultation Note Authored Date: I personally saw and evaluated the patient??on the date of service and discussed??the case with thetreatment team. I agree with the assessment and plan as documented by Dr. Hartmann. * Jessica Hammonds MD: PERFORM Event Display: Consultation Note Authored Date: Patient: ??RAND WILKERSON ? Age:??43 Years?Sex:??Male?:??1980?? Chief Complaint/Reason for Consult Pt coming from home s/p 2 seizures. Pt's family found pt on ground during 1st sz, EMS witnessed 2ndsz (tonic-clonic), lasted ~1min and broke on own. +sz hx, unk sz meds. Pt arrived postictal w/ c/o back pain. History of Present Illness 43 y/o man with PMH of alcohol and substance??use d/o (reports 3 drinks per instance, former use ofcocaine and ecstasy), generalized epilepsy, presenting for eval of seizures. He reports that he is here for 2 seizures that occurred back to back. Describes usual seizures as metallic taste followed by blackout event and screaming. Has been witnessed by brothers who have told him he acts out of control. He reports that he was followed by Dr. Ballard but was recently discharged from that practiced/t missed appts/ late arrivals. ?? On 08/29/23 he was seen by [facility] neurology consult service with plan to continue the following ASD regimen: levetiracetam 2 g twice daily,??lamotrigine 300 twice daily,?? valproic acid 250 twice daily,?? clonazepam 1 mg nightly and 0.5 every morning. At some point after this, he was started on phenytoin 200 mg BID. Mr. Gonzalez reports that after this, in the last few weeks, he had a seizure on the fifth floor when Dr. Ballard was on the fourth floor and that Dr. Ballard recommended changes to the antiseizure drug list, so he has been on the following med regimen: phenytoin 200 mg am/ 300 mg pm, lamotrigine 300 mg BID, clobazam 5 mg BID. ?? He recalls that he was on levetiracetam for 20 yrs before this was recently stopped. Also used to take topiramate. ?? He states his last drink of alcohol was a few days ago. ?? Regarding his prior sz workup: sz onset at 6 mo old, was sz free from age 5 to 15, with recurrent seizures since. ??previous records reflect that he has h/o of generalized seizure d/o, a EEG has shown frontal spike and generalized wave and polyspike and wave. Review of Systems Const: no recent illness. + trouble sleeping Neuro: no head injury aside from during seizures Physical Exam Vitals & Measurements T:??98.1?F?? HR:??66??(Peripheral)?? RR:??18?? BP:??128/62?? SpO2:??97%?? HT:??180??cm?? WT:??109??kg?? BMI:??33.64? General: no acute distress?? HEENT: no tongue lac. edentulous Resp: nonlabored Skin: warm, dry Extremities: no edema, no cyanosis? Mental Status: alert, attentive. Answers questions appropriately. Fully oriented. Speech fluent andspontaneous, + mildly dysarthric.?? Cranial Nerves:?? PERRL. VFF. EOMI. Facial sensation intact. Facial movements full and symmetric. Hearing intact to conversation. Tongue/ palate midline. SCM/trap 5/5?? Motor: - RUE: pv design engineer 5/5 - LUE: pv design engineer 5/5 - RLE: foot dorsiflexion??5/5, foot plantarflexion 5/5 - LLE: foot dorsiflexion??/5, foot plantarflexion 5/5 Sensory: - Light touch: normal?? Coordination: +horizontal nystagmus on right gaze. + sl dysmetria left arm Assessment/Plan Breakthrough seizure: hx of generalized epilepsy with recent adjustments to multiple seizure meds - increase clobazam to 5 mg am/ 10 mg pm - no change to lamotrigine 300 mg BID and phenytoin 200 mg am/ 300 mg pm?? - seizure precautions - check tox screen - The patient should not drive for 6 months from last seizure. Should also not operate heavy machinery, should not take bathtub baths or swim unsupervised, and should not participate in other activities in which a seizure could put their safety or the safety of others at risk?? - Will need neuro f/u??- location will depend on whether he is able to return to f/u with Dr. Ballard or if confirmed that he was discharged from f/u for missed appts. - monitoring for withdrawal as per primary team ?? Recommendations paged to primary team. Neurology will sign off, please page back if there are additional questions or concerns Problem List/Past Medical History Ongoing COPD without exacerbation COVID Obese class I Obesity Polysubstance abuse Procedure/Surgical History No qualifying data available. Home Medications Albuterol/Ipratropium: 1 puffs, Inhalation, 4 times a day Clonazepam: 0.5 mg = 1 tablet, By Mouth, Daily in AM Clonazepam: 1 mg = 1 tablet, By Mouth, Daily at bedtime, While in hosp Divalproex Sodium: 500 mg, By Mouth, 2 times a day Folic Acid: 1 mg = 1 tablet, By Mouth, Daily Ibuprofen: 600 mg, By Mouth, 3 times a day with meals Lamotrigine: 2 tablets, By Mouth, 2 times a day levETIRAcetam: 2,000 mg = 2 tablet, By Mouth, 2 times a day Melatonin: 5 mg = 1 tablet, By Mouth, Daily at bedtime Olanzapine: 5 mg = 1 tablet, By Mouth, Daily at bedtime Polyethylene Glycol 3350: 17 Gm, By Mouth, Daily Sertraline: 50 mg = 1 tablet, By Mouth, Daily Thiamine: 100 mg = 1 tablet, By Mouth, Daily Trazodone: 50 mg = 1 tablet, By Mouth, Daily at bedtime Allergies erythromycin??(rash) Social History Alcohol Use: Current. Frequency: 1-2 times per week. Type: Beer. Exercise Self assessment: Good condition. Home/Environment Living situation: Home/Independent. Lives with: Mother. Nutrition/Health Diet: Regular. Substance Abuse Use: Past. Type: Cocaine, Heroin, Marijuana. Tobacco Use: 5-9 cigarettes (between 1/4 to 1/2 pack)/day in last 30 days. Interested in cessation: No. Family History No family history recorded. Lab Results Test Name Test Result Date/Time WBC 6.8 k/mm3 11/19/2023 21:39 EDT RBC 4.13 m/mm3 11/19/2023 21:39 EDT Hgb 12.7 Gm/dL 11/19/2023 21:39 EDT Hct 39.2 % 11/19/2023 21:39 EDT MCV 94.9 femtoliters 11/19/2023 21:39 EDT MCH 30.8 pg 11/19/2023 21:39 EDT MCHC 32.4 g/dL 11/19/2023 21:39 EDT Platelet Count 163 k/mm3 11/19/2023 21:39 EDT RDW-SD 49.1 femtoliters 11/19/2023 21:39 EDT MPV 10.4 femtoliters 11/19/2023 21:39 EDT Nucleated RBC (Automated) 0.0 #/100 WBC'S 11/19/2023 21:39 EDT Abs. NRBC 0.0 k/mm3 11/19/2023 21:39 EDT Abs. Neut 4.9 k/mm3 11/19/2023 21:39 EDT Abs. Lymph 1.4 k/mm3 11/19/2023 21:39 EDT Abs. Allen 0.4 k/mm3 11/19/2023 21:39 EDT Abs. Eo 0.1 k/mm3 11/19/2023 21:39 EDT Abs. Baso 0.0 k/mm3 11/19/2023 21:39 EDT Neut % 71.1 % 11/19/2023 21:39 EDT Lymph % 20.8 % 11/19/2023 21:39 EDT Allen % 6.3 % 11/19/2023 21:39 EDT Eos % 1.2 % 11/19/2023 21:39 EDT Baso % 0.3 % 11/19/2023 21:39 EDT Imm Gran 0.3 % 11/19/2023 21:39 EDT Abs. Imm Gran 0.0 k/mm3 11/19/2023 21:39 EDT Sodium 141 mmol/L 11/19/2023 21:39 EDT Potassium 4.3 mmol/L 11/19/2023 21:39 EDT Chloride 107 mmol/L 11/19/2023 21:39 EDT Bicarbonate Level 23 mmol/L 11/19/2023 21:39 EDT Anion Gap 11 11/19/2023 21:39 EDT Glucose Level 92 mg/dL 11/19/2023 21:39 EDT BUN 18 mg/dL 11/19/2023 21:39 EDT Creatinine-Blood 0.72 mg/dL 11/19/2023 21:39 EDT Estimated GFR Creatinine 117 ML/MIN/1.73 M2 11/19/2023 21:39 EDT Calcium 8.9 mg/dL 11/19/2023 21:39 EDT Magnesium 2.1 mg/dL 11/19/2023 21:39 EDT Protein, Total 7.1 Gm/dL 11/19/2023 21:39 EDT Albumin 3.9 Gm/dL 11/19/2023 21:39 EDT AG Ratio 1.2 11/19/2023 21:39 EDT Alkaline Phosphatase 98 units/L 11/19/2023 21:39 EDT AST (SGOT) 19 units/L 11/19/2023 21:39 EDT ALT (SGPT) 15 units/L 11/19/2023 21:39 EDT Bilirubin, Total 0.4 mg/dL 11/19/2023 21:39 EDT Ethanol, Serum or Plasma NONE DETECTED 11/19/2023 21:39 EDT Dilantin Level 20.5 mg/L 11/19/2023 21:39 EDT Valproic Level <2.8 mg/L 11/19/2023 21:39 EDT Appear/Color, Urine YELLOW 11/19/2023 21:36 EDT Specific [place], Urine 1.028 11/19/2023 21:36 EDT pH, Urine 6.0 11/19/2023 21:36 EDT Albumin, Urine 1+ 11/19/2023 21:36 EDT Glucose, Urine NEGATIVE 11/19/2023 21:36 EDT Ketones, Urine 1+ 11/19/2023 21:36 EDT Bilirubin, Urine NEGATIVE 11/19/2023 21:36 EDT Hemoglobin, Urine NEGATIVE 11/19/2023 21:36 EDT Nitrite, Urine NEGATIVE 11/19/2023 21:36 EDT Leukocyte, Urine NEGATIVE 11/19/2023 21:36 EDT Urobilinogen NORMAL 11/19/2023 21:36 EDT WBC's, Urine 1 /HPF 11/19/2023 21:36 EDT RBC's, Urine 2 /HPF 11/19/2023 21:36 EDT Granular Cast 1 /LPF 11/19/2023 21:36 EDT Mucus SLIGHT 11/19/2023 21:36 EDT Hold Urine Culture Testing available 48 hours from time of collection. 11/19/2023 21:36 EDT Note * Michael Trejo MD: PERFORM Event Display: Discharge/Transfer Note Hospital Authored Date: Patient: ??RAND WILKERSON ? Age:??43 Years?Sex:??Male?:??1980?? 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) Breakthrough seizure (G40.919) _ Discharge Medications Albuterol/Ipratropium (Combivent Respimat 20 mcg-100 mcg/inh inhalation aerosol)?1?puff(s)?Inhalation?4 times a day Clobazam (clobazam 10 mg oral tablet)?5?Milligram?By Mouth?Daily in AM Clobazam (clobazam 10 mg oral tablet)?10?Milligram?By Mouth?Daily at bedtime Clonazepam (clonazePAM 0.5 mg oral tablet)?1?tab(s)?0.5?Milligram?By Mouth?Daily in AM Clonazepam (clonazePAM 1 mg oral tablet)?1?tab(s)?1?Milligram?By Mouth?Daily at bedtime?While in hosp Folic Acid (folic acid 1 mg oral tablet)?1?Milligram?1?tablet?By Mouth?Daily Ibuprofen (Motrin Tablet)?600?Milligram?By Mouth?3 times a day with meals Lamotrigine (lamotrigine 150 mg oral tablet)?2 tablets?By Mouth?2 times a day Melatonin (melatonin 5 mg oral tablet)?1?tab(s)?5?Milligram?By Mouth?Daily at bedtime Olanzapine (olanzapine 5 mg oral tablet)?5?Milligram?1?tablet?By Mouth?Daily at bedtime Phenytoin (phenytoin 200 mg oral capsule, extended release)?200?Milligram?By Mouth?Daily in AM Phenytoin (phenytoin 300 mg oral capsule, extended release)?300?Milligram?By Mouth?Daily at bedtime Polyethylene Glycol 3350 (MiraLax oral powder for reconstitution)?17?gram?By Mouth?Daily Sertraline (sertraline 50 mg oral tablet)?1?tab(s)?50?Milligram?By Mouth?Daily Thiamine (Vitamin B1 100 mg oral tablet)?100?Milligram?1?tablet?By Mouth?Daily Trazodone (traZODone 50 mg oral tablet)?50?Milligram?1?tablet?By Mouth?Daily at bedtime ?? Medications Started - Medications Discontinued - Doses Changed Clobazam 5mg BID changed to (Clobazam 5mg in AM, 10mg in PM) Allergies Allergies ?(Active and Proposed Allergies Only) erythromycin? (Severity: Unknown severity, Onset: Unknown) ?Reactions: rash ? PCP Follow-Up/Heads-Up Please ensure the following: ??? Patient follow-up with neurology ??? Clobazam dosing change ??? Current??AEDs include??clobazam, phenytoin??and??lamotrigine ??? Alcohol use cessation, can offer medical therapies Future Appointments Wednesday 1:30 PM EDT ?? With: Winston NUÑEZ, Marli George Where: [facility] Neurology [facility] [address], [address] [place] [phone]- Status: Pending Hospital Course Mr.St Britton is a 43 years old male with PMHx of tonic-clonic epilepsy on multiple AEDs, COPD, obesity, substance abuse, bipolar (by chart review), presented to ER due to 2 tonic-clonic seizure witnessed by family and extra episode of seizure in ER that lasted 1 min resolved spontaneously with post-ictal afterwards. ER workup showed unremarkable labs and imaging also without acute abnormalities. Patient received some of home AEDs and now admitted for further care.?? The patient was evaluated by neurology while inpatient and was found to have breakthrough seizure (history of generalized epilepsy).?? The patient's current regimen includes lamotrigine 300 mg twice daily, phenytoin 200 mg in a.m.and 300 mg in p.m. and clobazam has not been increased to 10 mg in p.m. and 5 mg in a.m.?? He will require neurology follow-up outpatient and compliance with medications.?? He was also evaluated by psychiatry??who recommended??medications for while he was inpatient, however he does not currently have suicidal or homicidal ideation.?? Recommending outpatient psychiatric evaluation. Objective Generalized tonic clonic epilepsy ??(G40.309) Breakthrough seizure frequent up to weekly breakthrough seizure and presented with 2 tonic-clonic seizure back to back, labs and brain CT non-acute, clinically no evidence of withdrawal, no longer post-ictal Lamictal 300 mg bid, clobazam 5 mg in AM and 10mg in PM, phenytoin 200 mg in a.m. and??300 mg p.m. -no longer on Keppra, Depakote or Klonopin -Outpatient neurology follow-up ?? COPD without exacerbation ??(J44.9) -albuterol prn ?? Alcohol abuse ??(F10.10) States that he stopped drinking 3 to 4 days ago; will require??alcohol cessation counseling??and??could??benefit from??pharmacotherapies in order to decrease cravings ?? Bipolar disorder ??(F31.9) Suicidal ideation ??(R4.661) Does not currently have suicidal ideation -continue Zoloft and trazodone -Recommend outpatient psychiatric referral ? Vital Signs?? Temperature: 98.3 DegF (11/21/23 07:00:00) Temperature Route: Oral (11/21/23 07:00:00) Pulse Rate: 71 bpm (11/21/23 07:00:00) Respiratory Rate: 16 br/min (11/21/23 07:00:00) Systolic Blood Pressure:??141 mm Hg??High (11/21/23 07:00:00) Diastolic Blood Pressure: 76 mm Hg (11/21/23 07:00:00) Blood pressure sites: Arm, left (11/21/23 07:00:00) Mean Arterial Pressure: 84 mm Hg (11/20/23 14:48:00) Pulse Pressure: 65 mm Hg (11/21/23 07:00:00) Oxygen Saturation:??92 %??Low (11/21/23 07:00:00) Mode of Delivery (Oxygen): Nasal cannula (11/21/23 07:00:00) Early Warning Score: 2 (11/21/23 09:08:59) ? . Physical Exam Constitutional: Alert, in no acute distress. Head EENT: Extraocular muscle movement intact.??Moist mucous membranes.?? Respiratory: Clear to auscultation. No wheezing or crackles. No use of accessory muscles. Cardiovascular: S1S2 regular. No murmurs, rubs or gallops. Gastrointestinal: Abdomen soft, non-tender, non-distended. Normal bowel sounds. Extremities: No lower extremity pitting??edema. No cyanosis or clubbing. Neurologic: AAOx3, Speech normal. No focal neurological deficits. Occasional involuntary movement. Skin: No rash. Psychiatric: Normal mood and affect Pending Results Alcohol Metabolites QN Urine Toxicology ordered on 11/20/2023 Amphetamine Urine Screen ordered on 11/20/2023 Benzodiazepine Urine Screen ordered on 11/20/2023 Cannabinoid Urine Screen ordered on 11/20/2023 Clobazam Level ordered on 11/19/2023 Cocaine Urine Screen ordered on 11/20/2023 Fentanyl Screen, Urine ordered on 11/20/2023 Lamotrigine Level ordered on 11/19/2023 Opiate Screen Urine ordered on 11/20/2023 Patient Instructions Please ensure the following: ?Would strongly recommend??to not drink alcohol ??? Clobazam??dose was increased??to 10 mg??to be taken??nightly, I will still continue all your other medications at their normal doses ??? Please follow-up with your primary care physician ??? Please follow-up with your neurologist Results Discharge Labs BLOOD COUNT & DIFF WBC 6.3 k/mm3 ()?? 11/21/2023 08:24 RBC 4.29 m/mm3 (Low)?? 11/21/2023 08:24 Hgb 13.2 Gm/dL (Low)?? 11/21/2023 08:24 Hct 39.4 % (Low)?? 11/21/2023 08:24 MCV 91.8 femtoliters ()?? 11/21/2023 08:24 MCH 30.8 pg ()?? 11/21/2023 08:24 MCHC 33.5 g/dL ()?? 11/21/2023 08:24 Platelet Count 177 k/mm3 ()?? 11/21/2023 08:24 RDW-SD 47.0 femtoliters (High)?? 11/21/2023 08:24 MPV 10.5 femtoliters ()?? 11/21/2023 08:24 Nucleated RBC (Automated) 0.0 #/100 WBC'S ()?? 11/21/2023 08:24 Abs. NRBC 0.0 k/mm3 ()?? 11/21/2023 08:24 Abs. Neut 4.9 k/mm3 ()?? 11/19/2023 21:39 Abs. Lymph 1.4 k/mm3 ()?? 11/19/2023 21:39 Abs. Allen 0.4 k/mm3 ()?? 11/19/2023 21:39 Abs. Eo 0.1 k/mm3 ()?? 11/19/2023 21:39 Abs. Baso 0.0 k/mm3 ()?? 11/19/2023 21:39 Neut % 71.1 % ()?? 11/19/2023 21:39 Lymph % 20.8 % ()?? 11/19/2023 21:39 Allen % 6.3 % ()?? 11/19/2023 21:39 Eos % 1.2 % ()?? 11/19/2023 21:39 Baso % 0.3 % ()?? 11/19/2023 21:39 Imm Gran 0.3 % ()?? 11/19/2023 21:39 Abs. Imm Gran 0.0 k/mm3 ()?? 11/19/2023 21:39 ?? CHEM GENERAL Sodium 137 mmol/L ()?? 11/21/2023 08:24 Potassium 4.2 mmol/L ()?? 11/21/2023 08:24 Chloride 103 mmol/L ()?? 11/21/2023 08:24 Bicarbonate Level 23 mmol/L ()?? 11/21/2023 08:24 Anion Gap 11 ()?? 11/21/2023 08:24 Glucose Level 164 mg/dL (High)?? 11/21/2023 08:24 Glucose, POC 79 mg/dL ()?? 11/19/2023 22:27 BUN 16 mg/dL ()?? 11/21/2023 08:24 Creatinine-Blood 0.71 mg/dL ()?? 11/21/2023 08:24 Estimated GFR Creatinine 117 ML/MIN/1.73 M2 ()?? 11/21/2023 08:24 Calcium 9.0 mg/dL ()?? 11/21/2023 08:24 Magnesium 2.1 mg/dL ()?? 11/19/2023 21:39 Protein, Total 7.1 Gm/dL ()?? 11/19/2023 21:39 Albumin 3.9 Gm/dL ()?? 11/19/2023 21:39 AG Ratio 1.2 ()?? 11/19/2023 21:39 Alkaline Phosphatase 98 units/L ()?? 11/19/2023 21:39 AST (SGOT) 19 units/L ()?? 11/19/2023 21:39 ALT (SGPT) 15 units/L ()?? 11/19/2023 21:39 Bilirubin, Total 0.4 mg/dL ()?? 11/19/2023 21:39 ? MISC. CHEMISTRY Hold Gel Top SPECIMEN DISCARDED AFTER 1 WEEK ()?? 11/21/2023 08:24 ? TOXICOLOGY/TDM Ethanol, Serum or Plasma NONE DETECTED mg/dL ()?? 11/19/2023 21:39 Dilantin Level 20.5 mg/L (High)?? 11/19/2023 21:39 Valproic Level <2.8 mg/L (Low)?? 11/19/2023 21:39 ? UA/URINALYSIS Appear/Color, Urine YELLOW ()?? 11/19/2023 21:36 Specific Hannibal, Urine 1.028 ()?? 11/19/2023 21:36 pH, Urine 6.0 ()?? 11/19/2023 21:36 Albumin, Urine 1+ (Abnormal)?? 11/19/2023 21:36 Glucose, Urine NEGATIVE ()?? 11/19/2023 21:36 Ketones, Urine 1+ (Abnormal)?? 11/19/2023 21:36 Bilirubin, Urine NEGATIVE ()?? 11/19/2023 21:36 Hemoglobin, Urine NEGATIVE ()?? 11/19/2023 21:36 Nitrite, Urine NEGATIVE ()?? 11/19/2023 21:36 Leukocyte, Urine NEGATIVE ()?? 11/19/2023 21:36 Urobilinogen NORMAL mg/dL ()?? 11/19/2023 21:36 WBC's, Urine 1 /HPF ()?? 11/19/2023 21:36 RBC's, Urine 2 /HPF ()?? 11/19/2023 21:36 Granular Cast 1 /LPF ()?? 11/19/2023 21:36 Mucus SLIGHT /LPF ()?? 11/19/2023 21:36 Hold Urine Culture Testing available 48 hours from time of collection. ()?? 11/19/2023 21:36 ?? URINE OTHER Est Creatinine Clearance 143.76 mL/min ()?? 11/21/2023 09:08 ? VIROLOGY COVID-19 by RT-PCR NEGATIVE ()?? 11/19/2023 21:36 ? Microbiology ?? COVID-19 (Novel Coronavirus), Rapid PCR?? Completed?? Source: Nasal Body Site: Nose Collected Dt/Tm: 11/19/2023 21:14 Last Updated Dt/Tm: 11/19/2023 22:32 ? Michael Trejo MD 45??minutes spent on discharge * Zaki AVILA, Hedy: PERFORM Event Display: Discharge/Transfer Note Hospital Authored Date: Attending Attestation: I have seen and evaluated this patient. I have discussed the case and its management with the resident and agree with the findings and plan as documented in the resident???s note. * Therese Gross RN: PERFORM, MODIFY Event Display: Patient Education/Instruction Authored Date: [id number] Inpatient Adult Discharge Instructions. [address] [id number] Name: RAND WILKERSON : 1980?? Visit: 11/20/2023 02:09?? Current Date: 11/21/2023 17:09 ?? Account: [id number]?? Inpatient Adult Discharge Instructions We would like [...] and their families. Surveys are administered by [employer] ?? If further treatment with your primary care physician or another doctor is recommended, it is important for you to keep the appointment. Call your primary care physician or return to the Emergency Department immediately if your condition worsens, fails to improve, or new symptoms develop. If you need to find a doctor, you can call [facility] [employer] for a referral at [phone] or toll free at [phone] or log in to [email or web address].. ?? [facility], in keeping with [facility] guidance, no longer requires face masks for [...] portal or by using a health care anni of your choosing. [employer] is a website that allows you to securely view your medical information including your hospital discharge summary, office visit summaries, medications and follow-up visits. You can also request appointments, renew medications, and request access to your medical information using a health care anni of your choosing, or just ask a question. You can enroll at [email or web address] or register during your next office visit. You have been discharged from [facility], Patient Care Unit: D5A??. If you have any questions regarding these instructions, including results of studies pending, afteryou leave, please call us and we will be happy to assist you 28/09. [facility] Your Care Team Attending Physician Hedy Haines MD?? Consulting Providers Hedy Haines MD?? Discharging Providers Michael Trejo MD Reason for Your Visit Pt coming from home s/p 2 seizures. Pt's family found pt on ground during 1st sz, EMS witnessed 2ndsz (tonic-clonic), lasted ~1min and broke on own. +sz hx, unk sz meds. Pt arrived postictal w/ c/o back pain.?? Your Diagnosis COPD without exacerbation Alcohol abuse Bipolar disorder Suicidal ideation Breakthrough seizure Tests Performed Below is a partial list of the tests performed during your hospitalization. You may have had other tests and procedures not included in this list. Please discuss all test results with your provider. Alcohol Level Basic Metabolic Panel CBC CBC w/ Differential Comprehensive Metabolic Panel COVID-19 (Novel Coronavirus), Rapid PCR Depakote Level Dilantin Level GLUCOSE POC HOLD GEL TUBE Magnesium Level Urinalysis w/hold for Urine Culture CT Cervical Spine W/O Contrast CT Head/Brain W/O Contrast XR Chest 2 Views Frontal and Lat Alcohol Metabolites QN Urine Toxicology?? Amphetamine Urine Screen (Urine Amphetamine Screen)?? Basic Metabolic Panel?? Benzodiazepine Urine Screen (Urine Benzodiazepine Screen)?? CBC?? CBC w/ Differential?? COVID-19 (Novel Coronavirus), Rapid PCR?? CT Cervical Spine W/O Contrast?? CT Head/Brain W/O Contrast?? Cannabinoid Urine Screen (Urine Cannabinoid Screen)?? Clobazam Level?? Cocaine Urine Screen (Urine Cocaine Screen)?? Comprehensive Metabolic Panel?? Ethanol Level (Alcohol Level)?? Fentanyl Screen, Urine?? Glucose POC?? Hold Gel Top Tube (HOLD GEL TUBE)?? Lamotrigine Level?? Magnesium Level?? Opiate Screen Urine (Urine Opiate Screen)?? Phenytoin Total Level (Dilantin Level)?? Urinalysis w/hold for Urine Culture?? Valproic Acid Level (Depakote Level)?? Chest 2 Views Frontal and Lat (XR Chest 2 Views Frontal and Lat)?? Primary Care Provider Not on Staff, PCP?? Advance Directive Health Care Proxy on File Yes - Health Care Proxy Yes - MOLST Discharge Vitals Temperature: 98.1 DegF Height: 180 cm Pulse Rate: 70 bpm Weight: 109 kg Respiratory Rate: 16 br/min Body Mass Index:??33.64 kg/m2??Critical Systolic Blood Pressure: 119 mm Hg Body surface area: 2.33 Diastolic Blood Pressure: 60 mm Hg ?? Oxygen Saturation:??93 %??Low ?? Studies Pending All studies ordered during this hospital stay have been completed unless listed below. Please discuss all pending results with your provider listed above in these instructions. ?? Alcohol Metabolites QN Urine Toxicology?? Amphetamine Urine Screen (Urine Amphetamine Screen)?? Benzodiazepine Urine Screen (Urine Benzodiazepine Screen)?? Cannabinoid Urine Screen (Urine Cannabinoid Screen)?? Clobazam Level?? Cocaine Urine Screen (Urine Cocaine Screen)?? Fentanyl Screen, Urine?? Lamotrigine Level?? Opiate Screen Urine (Urine Opiate Screen)?? What to do next Instructions From Your Doctor ?? Orders? 11/21/23 11:22:00 EDT?? Prescriptions??, ??11/21/23 11:22:00 EDT?? Scheduled Follow-Up Appointments Wednesday 1:30 PM EDT ?? With: Winston NUÑEZ, Marli George Where: [facility] [address] [place] [address], [address] [place] [phone] Status: Pending Discharge Medications RAND WILKERSON :1980 Visit Date:11/20/2023 Medications: Please continue your medications until treatment is completed or stopped by your provider. Medications not listed below should be discontinued. Discuss any questions related to medications with your provider. What How Much When Instructions Next Dose New Clobazam (clobazam 10 mg oral tablet) 5 Milligram Oral Daily in the morning Tomorrow 11/21 @ 9am. New Clobazam (clobazam 10 mg oral tablet) 10 Milligram Oral Daily at Bedtime Refills: 3 Tonight 11/20 @ 9pm. New Phenytoin (phenytoin 200 mg oral capsule, extended release) 200 Milligram Oral Daily in the morning Tomorrow 11/21 @ 9am. New Phenytoin (phenytoin 300 mg oral capsule, extended release) 300 Milligram Oral Daily at Bedtime Tonight 9 @ 9pm. Unchanged Albuterol/ Ipratropium (Combivent Respimat 20 mcg-100 mcg/ inh inhalation aerosol) 1 puff(s) Inhalation 4 times a day Not given. Take as prescribed. Unchanged Clonazepam (clonazePAM 0.5 mg oral tablet) 1 tab(s) Oral Daily in the morning Tomorrow 11/21 @ 9am. Unchanged Clonazepam (clonazePAM 1 mg oral tablet) 1 tab(s) Oral Daily at Bedtime While in hosp ?? Tonight 9 @ 9pm. Unchanged Folic Acid (folic acid 1 mg oral tablet) 1 tab(s) Oral Daily Tomorrow 11/21 @ 9am. Unchanged Ibuprofen (Motrin Tablet) 600 Milligram Oral 3 times a day with meals Not given. Take as prescribed. Unchanged Lamotrigine (lamotrigine 150 mg oral tablet) 2 tablets Oral Twice a day Tonight / @ 9pm. Unchanged Melatonin (melatonin 5 mg oral tablet) 1 tab(s) Oral Daily at Bedtime Tonight 11/20 @ 9pm. Unchanged Olanzapine (olanzapine 5 mg oral tablet) 1 tab(s) Oral Daily at Bedtime Tonight 11/20 @ 9pm. Unchanged Polyethylene Glycol 3350 (MiraLax oral powder for reconstitution) 17 gram Oral Daily Tomorrow 11/21 @ 9am. Unchanged Sertraline (sertraline 50 mg oral tablet) 1 tab(s) Oral Daily Tomorrow 11/21 @ 9am. Unchanged Thiamine (Vitamin B1 100 mg oral tablet) 1 tab(s) Oral Daily Tomorrow 11/21 @ 9am. Unchanged Trazodone (traZODone 50 mg oral tablet) 1 tab(s) Oral Daily at Bedtime Tonight 9 @ 9pm. [facility] [address], [place] [id number] [phone] ?? What How Much When Comments Stop Taking Divalproex Sodium (divalproex sodium 500 mg oral tablet,extended release) 500 Milligram Oral Twice a day Stop Taking levETIRAcetam (levETIRAcetam 1000 mg oral tablet) 2 tab(s) Oral Twice a day Prescription Given During Visit Clobazam (clobazam 10 mg oral tablet) - 10 mg, By Mouth, Daily at bedtime, # 30 tablet, 3 Refills, [facility], [address] [place] [phone]?? Laboratory Results Below is a partial list of the most recent Laboratory test results done prior to this discharge. You may have had other tests and procedures not included in this list. Please discuss all test resultswith your provider. Est Creatinine Clearance - 143.76 mL/min (11/21/2023) Alcohol Level (11/19/2023) ???Ethanol, Serum or Plasma - NONE DETECTED Basic Metabolic Panel (11/21/2023) ???Sodium - 137 mmol/L???Potassium - 4.2 mmol/L???Chloride - 103 mmol/L???Bicarbonate Level - 23 mmol/L???Anion Gap - 11???Glucose Level - 164 mg/dL???BUN - 16 mg/dL???Creatinine-Blood - 0.71 mg/dL???Estimated GFR Creatinine - 117 ML/MIN/1.73 M2???Calcium - 9.0 mg/dL CBC (11/21/2023) ???WBC - 6.3 k/mm3???RBC - 4.29 m/mm3???Hgb - 13.2 Gm/dL???Hct - 39.4 %???MCV - 91.8 femtoliters???MCH - 30.8 pg???MCHC - 33.5 g/dL???Platelet Count - 177 k/mm3???RDW-SD - 47.0 femtoliters???MPV - 10.5 femtoliters???Nucleated RBC (Automated) - 0.0 #/100 WBC'S???Abs. NRBC - 0.0 k/mm3 CBC w/ Differential (11/19/2023) ???WBC - 6.8 k/mm3???RBC - 4.13 m/mm3???Hgb - 12.7 Gm/dL???Hct - 39.2 %???MCV - 94.9 femtoliters???MCH - 30.8 pg???MCHC - 32.4 g/dL???Platelet Count - 163 k/mm3???RDW-SD - 49.1 femtoliters???MPV - 10.4 femtoliters???Nucleated RBC (Automated) - 0.0 #/100 WBC'S???Abs. NRBC - 0.0 k/mm3???Abs. Neut - 4.9 k/mm3???Abs. Lymph - 1.4 k/mm3???Abs. Allen - 0.4 k/mm3???Abs. Eo - 0.1 k/mm3???Abs. Baso - 0.0 k/mm3???Neut % - 71.1 %???Lymph % - 20.8 %???Allen % - 6.3 %???Eos % - 1.2 %???Baso % - 0.3 %???Imm Gran - 0.3 %???Abs. Imm Gran - 0.0 k/mm3 Comprehensive Metabolic Panel (11/19/2023) ???Sodium - 141 mmol/L???Potassium - 4.3 mmol/L???Chloride - 107 mmol/L???Bicarbonate Level - 23 mmol/L???Anion Gap - 11???Glucose Level - 92 mg/dL???BUN - 18 mg/dL???Creatinine-Blood - 0.72 mg/dL???Estimated GFR Creatinine - 117 ML/MIN/1.73 M2???Calcium - 8.9 mg/dL???Protein, Total - 7.1 Gm/dL???Albumin - 3.9 Gm/dL???AG Ratio - 1.2???Alkaline Phosphatase - 98 units/L???AST (SGOT) - 19 units/L???ALT (SGPT) - 15 units/L???Bilirubin, Total - 0.4 mg/dL COVID-19 (Novel Coronavirus), Rapid PCR (11/19/2023) ???COVID-19 by RT-PCR - NEGATIVE Depakote Level (11/19/2023) ? ?Valproic Level - <2.8 mg/L Dilantin Level (11/19/2023) ???Dilantin Level - 20.5 mg/L GLUCOSE POC (11/19/2023) ???Glucose, POC - 79 mg/dL HOLD GEL TUBE (11/21/2023) ???Hold Gel Top - SPECIMEN DISCARDED AFTER 1 WEEK Magnesium Level (11/19/2023) ???Magnesium - 2.1 mg/dL Urinalysis w/hold for Urine Culture (11/19/2023) ???Appear/Color, Urine - YELLOW???Specific [place], Urine - 1.028???pH, Urine - 6.0???Albumin, Urine - 1+???Glucose, Urine - NEGATIVE???Ketones, Urine - 1+???Bilirubin, Urine - NEGATIVE???Hemoglobin,Urine - NEGATIVE???Nitrite, Urine - NEGATIVE???Leukocyte, Urine - NEGATIVE???Urobilinogen - NORMAL???WBC's, Urine - 1 /HPF???RBC's, Urine - 2 /HPF???Granular Cast - 1 /LPF???Mucus - SLIGHT???Hold Urine Culture - Testing available 48 hours from time of collection. You will be contacted within 72 hours with your results. Allergies (NKA means No Known Allergies) erythromycin??(rash) Problems Active Problems??(5) COPD without exacerbation?? COVID?? Obese class I?? Obesity?? Polysubstance abuse?? Education Materials Below is the list of Educational Leaflet Providered with your Discharge Instructions. WebMD Ignite Patient Education - Clobazam?? WebMD Ignite Patient Education - Recurrent Seizure (Adult)?? WebMD Ignite Patient Education - Trazodone?? WebMD Ignite Patient Education - Sertraline?? WebMD Ignite Patient Education - Olanzapine?? WebMD Ignite Patient Education - Lamotrigine?? WebMD Ignite Patient Education - Hydroxyzine?? WebMD Ignite Patient Education - Clobazam?? WebMD Ignite Patient Education - Benzodiazepine Withdrawal?? WebMD Ignite Patient Education - Recurrent Seizure (Adult)?? Valuables and Belongings I fully understand and agree that [facility] accepts no responsibility for all my [...] patient Date for Pt to Sign Valuables/Belongings: 11/20/23 11:01:00 ?? Other Discharge Information ? Pulmonary Rehab Status?? Pulmonary Rehab Discharge Status?? Respiratory Rate: 16 br/min ? Common Emergency Awareness Tips IS [...] are strongly encouraged to quit. Please call [facility] at [phone] or [phone] ([phone]) or log in to [email or web address] for referrals to smoking cessation programs. ?? 805 Suicide & Crisis Lifeline is available 28/09 if you or someone you know needs to find a reason to keep living. By calling 545 you'll be connected to a skilled, trained counselor at a crisis center in your area. INPATIENT DISCHARGE INSTRUCTIONS SIGNATURE PAGE RAND WILKERSON Location:[facility] Registration Date and Time:11/20/2023 02:09 EDT Primary Care Physician: Not on Staff, PCP Attending Physician: Hedy Haines MD, I RAND WILKERSON, have received the above patient education materials/instructions and have verbalized understanding. If ambulance or transport services are being used I further acknowledge being given a choice of service. ?? If you need to contact me, please call me at this number: . Patient/Local Coordinator Name: Patient/Local Coordinator Signature: Relationship to Patient: Witness Name/Signature: Date: * Therese Gross RN: PERFORM Event Display: Patient Education Leaflets Authored Date: [id number] Clobazam ?? [id number] Clobazam Brand Name(s): Onfi??, Sympazan??; also available generically IMPORTANT WARNING: Clobazam may increase the risk of serious or life-threatening breathing problems, sedation, or comaif used along with certain medications. Tell your doctor if you are taking or plan to take: antidepressants; medications for anxiety, mental illness, and seizures; sedatives; sleeping pills; opioids such as codeine, fentanyl (Duragesic, Subsys), morphine (Astramorph, Katey), or oxycodone (in Percocet, in Roxicet, others); or tranquilizers. Your doctor may need to change the dosages of your medications and will monitor you carefully. If you take clobazam with any of these medications and you develop any of the following symptoms, call your doctor immediately or seek emergency medical care immediately: unusual dizziness, lightheadedness, extreme sleepiness, slowed or difficult breathing, or unresponsiveness. Be sure that your caregiver or family members know which symptoms may be serious so they can call the doctor or emergency medical care if you are unable to seek treatment on your own. Clobazam may be habit forming. Do not take a larger dose, take it more often, or for a longer time than your doctor tells you to. Tell your doctor if you have ever drunk large amounts of alcohol, if you use or have ever used street drugs, or have overused prescription medications. Do not drink alcohol or use street drugs during your treatment. Drinking alcohol or using street drugs during your treatment with clobazam also increases the risk that you will experience these serious, life-threatening side effects. Also tell your doctor if you have or have ever had depression or another mental illness. Clobazam may cause a physical dependence (a condition in which unpleasant physical symptoms occur if a medication is suddenly stopped or taken in smaller doses), especially if you take it for severaldays to several weeks. Do not stop taking this medication or take fewer doses without talking to your doctor. Stopping clobazam suddenly can worsen your condition and cause withdrawal symptoms that may last for several weeks to more than 12 months. Your doctor probably will decrease your clobazam dose gradually. Call your doctor or get emergency medical treatment if you experience any of the following symptoms: unusual movements; ringing in your ears; anxiety; memory problems; difficulty concentrating; sleep problems; seizures; shaking; muscle twitching; changes in mental health; depression; burning or prickling feeling in hands, arms, legs or feet; seeing or hearing things that others do not see or hear; thoughts of harming or killing yourself or others; overexcitement; or losing touch with reality. WHY is this medicine prescribed? Clobazam is used with other medication(s) to control seizures in adults and children 2 years of ageand older who have [place]-Gastaut syndrome (a disorder that causes seizures and often causes developmental delays). Clobazam is in a class of medications called benzodiazepines. It works by decreasing abnormal electrical activity in the brain. HOW should this medicine be used? Clobazam comes as a tablet and a suspension (liquid) to take by mouth, and as a film to apply on the tongue. It is usually taken once or twice a day, with or without food. Take clobazam at around thesame time(s) every day. Follow the directions on your prescription label carefully, and ask your doctor or pharmacist to explain any part you do not understand. If you are unable to swallow the tablets whole, you may break them in half on the score annika or crush and mix them with a small amount of applesauce. The liquid comes an adapter and two oral dosing syringes. Use only one of the two oral dosing syringes to measure your dose and save the second syringe. If the first oral syringe is damaged or lost, the second provided syringe may be used as a replacement. To take the liquid, follow these steps: ??? Before the first use, uncap the bottle and firmly insert the adapter into the neck of the bottle until the adapter top is even with the bottle top. Do not remove the adapter during the period of time you are using this bottle. ??? Shake the liquid well before each use to mix the medication evenly. ??? To measure your dose, push the plunger of the syringe all the way down and insert the syringe into the adapter of the upright bottle. Then turn the bottle upside down and slowly pull the plunger back until the black ring is in line with your prescribed dose. ??? Remove the syringe from the bottle adapter and slowly squirt the liquid from the syringe into the corner of your mouth. ??? Placethe bottle cap over the adapter after each use. ??? Wash the oral syringe after each use. To wash the syringe, remove the plunger completely, wash the barrel and plunger with soap and water, rinse, and allow to dry. Do not place the syringe parts in the operations consultant. To take the film, follow these steps: ??? Open the foil pouch and remove the film. Be sure that your hands are dry and clean. ??? Place the film on the top of your tongue. ??? Close your mouth and swallow your saliva normally. Do not chew, spit, or talk while the film dissolves. Do not take with liquids. ??? Wash your hands. If your doctor has told you to take more than one film per dose, wait until the first film has completely dissolved before applying the second film. Your doctor will probably start you on a low dose of clobazam and gradually increase your dose, notmore than once every week. Some people may respond differently to clobazam based on their heredity or genetic makeup. Your doctor may order a blood test to help find the dose of clobazam that is best for you. Clobazam may help control your condition but will not cure it. Continue to take clobazam even if you feel well. Do not stop taking clobazam without talking to your doctor. Your doctor or pharmacist will give you the patrol sergeant's patient information sheet (Medication Guide) when you begin treatment with clobazam and each time you refill your prescription. Read the information carefully and ask your doctor or pharmacist if you have any questions. You can also visit the Food and Drug Administration (FDA) website (https://www.fda.gov/Drugs/DrugSafety/ldu515211.htm) or the patrol sergeant's website to obtain the Medication Guide. Are there OTHER USES for this medicine? This medication may be prescribed for other uses; ask your doctor or pharmacist for more information. What SPECIAL PRECAUTIONS should I follow? Before taking clobazam, ??? tell your doctor and pharmacist if you are allergic to clobazam, any other medications, or any of the ingredients in clobazam tablets, suspension, or film. Ask your pharmacist or check the Medication Guide for a list of the ingredients. ??? tell your doctor and pharmacist what other prescription and nonprescription medications, vitamins, nutritional supplements, and herbal products you are pierre ing or plan to take. Be sure to mention the medications listed in the IMPORTANT WARNING section andany of the following: antihistamines; dextromethorphan (Delsym, in Nuedexta, in Robitussin DM); fluconazole (Diflucan); fluvoxamine (Luvox); omeprazole (Prilosec, in Zegerid); or ticlopidine. Your doctor may need to change the doses of your medications or monitor you carefully for side effects. Many other medications may also interact with clobazam, so be sure to tell your doctor about all the medications you are taking, even those that do not appear on this list. ??? tell your doctor if you have or have ever had thoughts about harming or killing yourself, or planning or trying to do so or lung, kidney, or liver disease. ??? tell your doctor if you are or plan to become . If you take clobazam regularly during the last few months of your , your baby may experiencewithdrawal symptoms after . Tell your baby's doctor right away if your baby experiences any ofthe following symptoms: irritability, hyperactivity, abnormal sleep, high-pitched cry, uncontrollable shaking of a part of the body, vomiting, or diarrhea. If you become while taking clobazam, call your doctor. ??? if you are using hormonal contraceptives ( control pills, patches, rings, implants, injections, or intrauterine devices), you should know that this type of control may not work well when used with clobazam. Hormonal contraceptives should not be used as your only method of control while you are taking clobazam and for 28 days after your final dose. Talk to your doctor about nonhormonal control methods that will work for you. ??? tell your doctor if you are . If you are while taking clobazam, tell your doctor if your babyis not feeding well or is extremely drowsy. ??? talk to your doctor about the risks and benefits oftaking this medication if you are 65 years of age or older. Older adults should receive low doses of clobazam because higher doses may not work better and may cause serious side effects. ??? you should know that clobazam may make you drowsy and affect your thinking, ability to make decisions, and coordination. Do not drive a car, operate machinery, or do other dangerous activities until you know how this medication affects you. ??? you should know that your mental health may change in unexpected ways and you may become suicidal (thinking about harming or killing yourself or planning or tryingto do so) while you are taking clobazam. A small number of adults and children 5 years of age and older (about 1 in 500 people) who took anticonvulsants, such as clobazam, to treat various conditionsduring clinical studies became suicidal during their treatment. Some of these people developed suicidal thoughts and behavior as early as one week after they started taking the medication. You and your doctor will decide whether the risks of taking an anticonvulsant medication are greater than the risks of not taking the medication. You, your family, or your caregiver should call your doctor right away if you experience any of the following symptoms: panic attacks; agitation or restlessness; new or worsening irritability, anxiety, or depression; acting on dangerous impulses; difficulty falling or staying asleep; aggressive, angry, or violent behavior; paula (frenzied, abnormally excited mood); thinking about harming or killing yourself, or planning or trying to do so; or any other unusualchanges in behavior or mood. Be sure that your family or caregiver knows which symptoms may be serious so they can call the doctor if you are unable to seek treatment on your own. What SPECIAL DIETARY instructions should I follow? Unless your doctor tells you otherwise, continue your normal diet. What should I do IF I FORGET to take a dose? Take the missed dose as soon as you remember it. However, if it is almost time for the next dose, skip the missed dose and continue your regular dosing schedule. Do not take a double dose to make up for a missed one. What SIDE EFFECTS can this medicine cause? Clobazam may cause side effects. Tell your doctor if any of these symptoms are severe or do not go away: ??? tiredness ??? problems with coordination ??? difficulty speaking or swallowing ??? drooling ???change in appetite ??? vomiting ??? constipation ??? cough ??? joint pain ??? Some side effects canbe serious. If you experience any of these symptoms or those listed in the SPECIAL PRECAUTIONS or IMPORTANT WARNING sections, call your doctor immediately or get emergency medical treatment: ??? difficult, painful, or frequent urination ??? cough, difficulty breathing, fever ??? sores in your mouth, rash, hives, peeling or blistering skin ??? fever Clobazam may cause other side effects. Call your doctor if you have any unusual problems while taking this medication. If you experience a serious side effect, you or your doctor may send a report to the Food and Drug Administration's (FDA) MedWatch Adverse Event Reporting program online (https://www.fda.gov/Safety/MedWatch) or by phone ( ). What should I know about STORAGE and DISPOSAL of this medication? Keep this medication in the container it came in, tightly closed, and out of reach of children. Do not open the foil pouch for the film until right before you are ready to use it. Store clobazam in asafe place so that no one else can take it accidentally or on purpose. Store it at room temperatureand away from excess heat and moisture (not in the bathroom). Store clobazam suspension (liquid) inan upright position. Do not use any remaining liquid more than 90 days after first opening the bottle. It is important to keep all medication out of sight and reach of children as many containers (such as weekly pill minders and those for eye drops, creams, patches, and inhalers) are not child-resistant and young children can open them easily. To protect young children from poisoning, always lock safety caps and immediately place the medication in a safe location ??? one that is up and away and out of their sight and reach. https://www.[employer].org Unneeded medications should be disposed of in special ways to ensure that pets, children, and otherpeople cannot consume them. However, you should not flush this medication down the toilet. Instead,the best way to dispose of your medication is through a medicine take-back program. Talk to your pharmacist or contact your local garbage/recycling department to learn about take-back programs in your community. See the FDA's Safe Disposal of Medicines website (https://goo.gl/c4Rm4p) for more information if you do not have access to a take-back program. What should I do in case of OVERDOSE? In case of overdose, call the poison control helpline at . Information is also available online at https://www.poisonhelp.org/help. If the victim has collapsed, had a seizure, has trouble breathing, or can't be awakened, immediately call emergency services at 911. Symptoms of overdose may include the following: ??? drowsiness ??? confusion ??? lack of energy ??? problems with coordination ??? slow, shallow breathing ??? decreased urge to breathe ??? fainting ??? blurred vision What OTHER INFORMATION should I know? Keep all appointments with your doctor. Do not let anyone else take your medication. Clobazam is a controlled substance. Prescriptions may be refilled only a limited number of times; ask your pharmacist if you have any questions. It is important for you to keep a written list of all of the prescription and nonprescription (rkii-dom-mzjonyi) medicines you are taking, as well as any products such as vitamins, minerals, or otherdietary supplements. You should bring this list with you each time you visit a doctor or if you areadmitted to a hospital. It is also important information to carry with you in case of emergencies. This report on medications is for your information only, and is not considered individual patient advice. Because of the changing nature of drug information, please consult your physician or pharmacist about specific clinical use. The [employer] represents that the information provided hereunder was formulated with a reasonable standard of care, and in conformity with professional standards in the field. The [employer] makes no representations or warranties, express or implied, including, but not limited to, any implied warranty of merchantability and/or fitness for a particular purpose, with respect to such information and specifically disclaims all such warranties. Users are advised that decisions regarding drug therapy are complex medical decisions requiring the independent, informed decision of an appropriate health acute care physical therapist, and the information is provided for informational purposes only. The entire monograph for a drug should be reviewed for a thorough understanding of the drug's actions, uses and side effects. The [employer] does not endorse or recommend the use of any drug.The information is not a substitute for medical care. AHFS?? Patient Medication Information???. ?? Copyright, 2023. The [employer]??, [address], [address], [place], [place]. All Rights Reserved. Duplication for commercial use must be authorized by [facility]. Selected Revisions: February 19, 2023. AHFS?? Patient Medication Information???. ?? Copyright, 2023 ?? * Therese Gross RN: PERFORM Event Display: Patient Education Leaflets Authored Date: [id number] Recurrent Seizure (Adult) ?? [id number] Recurrent Seizure (Adult) You have had another [...] gets worse? Last Reviewed Date: 2021 ?? [id number] [employer]. All rights reserved. This information is not intended as a substitute for professional medical care. Always follow your healthcare professional's instructions. ?? * Therese Gross RN: PERFORM Event Display: Patient Education Leaflets Authored Date: [id number] Trazodone ?? [id number] Trazodone Brand Name(s): Desyrel??, Oleptro??, Trialodine??; also available generically IMPORTANT WARNING: A small number of children, teenagers, and young adults (up to 24 years of age) who took antidepressants ('mood elevators') such as trazodone during clinical studies became suicidal (thinking about harming or killing oneself or planning or trying to do so). Children, teenagers, and young adults whotake antidepressants to treat depression or other mental illnesses may be more likely to become suicidal than children, teenagers, and young adults who do not take antidepressants to treat these conditions. However, experts are not sure about how great this risk is and how much it should be considered in deciding whether a child or teenager should take an antidepressant. Children younger than 18 y ears of age should not normally take trazodone, but in some cases, a doctor may decide that trazodone is the best medication to treat a child's condition. You should know that your mental health may change in unexpected ways when you take trazodone or other antidepressants even if you are an adult over age 24. You may become suicidal, especially at thebeginning of your treatment and any time that your dose is increased or decreased. You, your family, or your caregiver should call your doctor right away if you experience any of the following symptoms: new or worsening depression; thinking about harming or killing yourself, or planning or trying to do so; extreme worry; agitation; panic attacks; difficulty falling asleep or staying asleep; aggressive behavior; irritability; acting without thinking; severe restlessness; and frenzied abnormal excitement. Be sure that your family or caregiver knows which symptoms may be serious so they can callthe doctor when you are unable to seek treatment on your own. Your healthcare provider will want to see you often while you are taking trazodone, especially at the beginning of your treatment. Be sure to keep all appointments for office visits with your doctor. The doctor or pharmacist will give you the patrol sergeant's patient information sheet (Medication Guide) when you begin treatment with trazodone. Read the information carefully and ask your doctor or pharmacist if you have any questions. You also can obtain the Medication Guide from the FDA website: h ttps://www.fda.gov/Drugs/DrugSafety/ymu684764.htm. No matter your age, before you take an antidepressant, you, your parent, or your caregiver should talk to your doctor about the risks and benefits of treating your condition with an antidepressant orwith other treatments. You should also talk about the risks and benefits of not treating your condition. You should know that having depression or another mental illness greatly increases the risk that you will become suicidal. This risk is higher if you or anyone in your family has or has ever hadbipolar disorder (mood that changes from depressed to abnormally excited) or paula (frenzied, abnormally excited mood) or has thought about or attempted suicide. Talk to your doctor about your condition, symptoms, and personal and family medical history. You and your doctor will decide what type oftreatment is right for you. WHY is this medicine prescribed? Trazodone is used to treat depression. Trazodone is in a class of medications called serotonin modulators. It works by increasing the amount of serotonin, a natural substance in the brain that helps maintain mental balance. HOW should this medicine be used? Trazodone comes as a tablet to take by mouth. The tablet is usually taken with a meal or light snack two or more times a day. To help you remember to take trazodone, take it around the same time(s) every day. Follow the directions on your prescription label carefully, and ask your doctor or pharmacist to explain any part you do not understand. Take trazodone exactly as directed. Do not take more or less of it, take it more often, or take it for a longer time than prescribed by your doctor. Swallow the tablets whole or broken in half on the score annika. Your doctor may start you on a low dose of trazodone and gradually increase your dose, not more than once every 3 to 4 days. Your doctor may decrease your dose once your condition is controlled. Trazodone controls depression, but does not cure it. It may take 2 weeks or longer before you feel the full benefit of trazodone. Continue to take trazodone even if you feel well. Do not stop taking trazodone without talking to your doctor. If you suddenly stop taking trazodone,you may experience withdrawal symptoms such as dizziness; nausea; headache; confusion; anxiety; agitation; difficulty falling asleep or staying asleep; extreme tiredness; seizures; pain, burning, or tingling in the hands or feet; frenzied or abnormally excited mood; ringing in the ears; or sweating. Your doctor will probably decrease your dose gradually. Are there OTHER USES for this medicine? Trazodone is also sometimes used to treat insomnia and schizophrenia (a mental illness that causes disturbed or unusual thinking, loss of interest in life, and strong or inappropriate emotions); anxiety (excessive worry). Trazodone is also sometimes used to control abnormal, uncontrollable movements that may be experienced as side effects of other medications and for the management of alcohol dependence. Talk to your doctor about the possible risks of using this medication for your condition. This medication may be prescribed for other uses. Ask your doctor or pharmacist for more information. What SPECIAL PRECAUTIONS should I follow? Before taking trazodone, ??? tell your doctor and pharmacist if you are allergic to trazodone or any other medications. ??? tell your doctor if you are taking a monoamine oxidase (MAO) inhibitor, such as isocarboxazid (Marplan), linezolid, methylene blue, phenelzine (Nardil), selegiline (Eldepryl, Emsam, Zelapar), and tranylcypromine (Parnate), or if you have stopped taking one of these medications within the past 14 days. Your doctor will probably tell you that you should not take trazodone. If you stop taking trazodone, your doctor will tell you that you should wait at least 14 days before you start to take an MAO inhibitor. ??? tell your doctor and pharmacist what other prescription and nonprescription medications, vitamins, and nutritional supplements you are taking or plan to take. Be sure to mention any of the following: amiodarone (Nexterone, Pacerone); anticoagulants ('blood thinners') such as warfarin (Coumadin, Jantoven); antifungals such as itraconazole (Sporanox, Tolsura), ketoconazole, or voricona zole (Vfend); aspirin and other NSAIDs such as ibuprofen (Advil, Motrin) and naproxen (Aleve, Naprosyn); buspirone; carbamazepine (Carbatrol, Equetro, Tegretol, others); chlorpromazine; clarithromycin (Biaxin); clopidogrel (Plavix); dabigatran (Pradaxa); digoxin (Lanoxin); disopyramide (Norpace); di uretics ('water pills'); fentanyl (Actiq, Duragesic, Fentora, Subsys); indinavir (Crixivan); lithium (Lithobid); medications for anxiety, irregular heartbeat, mental illness or pain; medications for migraine headaches such as almotriptan, eletriptan (Relpax), frovatriptan (Frova), naratriptan, rizatriptan (Maxalt), and sumatriptan (Imitrex); phenobarbital; phenytoin (Dilantin, Phenytek); procainamide; quinidine (in Nuedexta); rifampin (Rifadin, Rimactane); rivaroxaban (Xarelto);sedatives; selective serotonin reuptake inhibitors (SSRIs) such as citalopram (Celexa), escitalopram (Lexapro), fluoxetine (Prozac), fluvoxamine (Luvox), paroxetine (Paxil, Pexeva), and sertraline (Zoloft); tranquilizers; sotalol (Betapace, Sorine, Sotylize); thioridazine; tramadol (Conzip, Qdola, Ultram, in Ultracet); tricyclic antidepressants such as amitriptyline, amoxapine (Asendin), clomipramine (Anafranil),desipramine (Norpramin), doxepin (Sinequan), imipramine (Tofranil), nortriptyline (Pamelor), protriptyline, and trimipramine; or ziprasidone (Geodon). Your doctor may need to change the doses of yourmedications or monitor you carefully for side effects. Many other medications may also interact with trazodone, so be sure to tell your doctor about all the medications you are taking, even those that do not appear on this list. ??? tell your doctor what herbal products and nutritional supplements you are taking, especially Basco's wort and tryptophan. ??? tell your doctor if you or anyone in your family has or has ever had long QT syndrome (a rare heart problem that may cause irregular heartbeat, fainting, or sudden ), if you have ever had a heart attack, or if you have a low level of sodium in your blood. Also tell your doctor if you drink or have ever drunk large amounts of alcohol, or if you have or have ever had high blood pressure; bleeding problems; sickle cell anemia (a disease of the red blood cells); multiple myeloma (cancer of the plasma cells); leukemia (cancer of the white blood cells); cavernosal fibrosis or Peyronie's disease (conditions that affects the shape of the penis such as angulation); or heart, liver, or kidney disease. ??? tell your doctor if you are, plan to become , or are breast-feeding. If you become while taking trazodone, call your doctor. ??? if you are having surgery, including dental surgery, tell the doctor or dentist that you are taking trazodone. ??? you should know that trazodone may make you drowsy and affect your judgment, thinking, and movements. Do not drive a car or operate machinery until you know how this medication affects you. ??? ask your doctor about the safe use of alcoholic beverages whileyou are taking trazodone. Alcohol can make the side effects from trazodone worse. ??? you should know that trazodone may cause dizziness, lightheadedness, and fainting when you get up too quickly from a lying position. To avoid this problem, get out of bed slowly, resting your feet on the floor fora few minutes before standing up. ??? you should know that trazodone may cause angle-closure glaucoma (a condition where the fluid is suddenly blocked and unable to flow out of the eye causing a quick, severe increase in eye pressure which may lead to a loss of vision). Talk to your doctor about having an eye examination before you start taking this medication. If you have nausea, eye pain, changes in vision, such as seeing colored rings around lights, and swelling or redness in or around the ey e, call your doctor or get emergency medical treatment right away. What SPECIAL DIETARY instructions should I follow? Talk to your doctor about eating grapefruit and drinking grapefruit juice while taking this medicine. What should I do IF I FORGET to take a dose? Take the missed dose as soon as you remember it. However, if it is almost time for the next dose, skip the missed dose and continue your regular dosing schedule. Do not take a double dose to make up for a missed one. What SIDE EFFECTS can this medicine cause? Trazodone may cause side effects. Tell your doctor if any of these symptoms are severe or do not goaway: ??? nausea ??? vomiting ??? diarrhea ??? constipation ??? changes in appetite or weight ??? weakness or tiredness ??? nervousness ??? dizziness or lightheadedness ??? nightmares ??? muscle pain ??? dry mouth ??? rash ??? sexual problems in males; decreased sex drive, inability to get or keep an erection, or delayed or absent ejaculation ??? sexual problems in females; decreased sex drive, or delayed orgasm or unable to have an orgasm ??? uncontrollable shaking of a part of the body ??? stuffy nose ??? tired, red, or itchy eyes ??? Some side effects can be serious. If you experience any of thefollowing symptoms or those listed in the IMPORTANT WARNING or SPECIAL PRECAUTIONS sections, call your doctor immediately or get emergency medical treatment: ??? chest pain ??? fast, pounding, or irregular heartbeat ??? loss of consciousness (coma) ??? fever, sweating, confusion, fast or irregular heartbeat, and severe muscle stiffness or twitching, agitation, hallucinations, loss of coordination, nausea, vomiting, or diarrhea ??? fainting ??? seizures ??? shortness of breath ??? unusual bruising or bleeding ??? nosebleeds ??? small red or purple dots on the skin ??? erection lasting more than 6 hours ??? headache ??? problems with thinking, concentration, or memory ??? weakness ??? problems with coordination Trazodone can cause painful, long lasting erections in males. In some cases emergency and/or surgical treatment has been required and, in some of these cases, permanent damage has occurred. Talk to your doctor about the risk of taking trazodone. Trazodone may cause other side effects. Call your doctor if you have any unusual problems while taking this medication. If you experience a serious side effect, you or your doctor may send a report to the Food and Drug Administration's (FDA) MedWatch Adverse Event Reporting program online (https://www.fda.gov/Safety/MedWatch) or by phone ( ). What should I know about STORAGE and DISPOSAL of this medication? Keep this medication in the container it came in, tightly closed, and out of reach of children. Store it at room temperature and away from light, excess heat, and moisture (not in the bathroom). Unneeded medications should be disposed of in special ways to ensure that pets, children, and otherpeople cannot consume them. However, you should not flush this medication down the toilet. Instead,the best way to dispose of your medication is through a medicine take-back program. Talk to your pharmacist or contact your local garbage/recycling department to learn about take-back programs in your community. See the FDA's Safe Disposal of Medicines website (https://goo.gl/c4Rm4p) for more information if you do not have access to a take-back program. It is important to keep all medication out of sight and reach of children as many containers (such as weekly pill minders and those for eye drops, creams, patches, and inhalers) are not child-resistant and young children can open them easily. To protect young children from poisoning, always lock safety caps and immediately place the medication in a safe location ??? one that is up and away and out of their sight and reach. https://www.upandaway.org What should I do in case of OVERDOSE? In case of overdose, call the poison control helpline at . Information is also available online at https://www.poisonhelp.org/help. If the victim has collapsed, had a seizure, has trouble breathing, or can't be awakened, immediately call emergency services at 911. Symptoms of overdose may include: ??? vomiting ??? drowsiness ??? changes in heartbeat ??? seizures ??? difficulty breathing ??? painful erection that does not go away What OTHER INFORMATION should I know? Keep all appointments with your doctor. Do not let anyone else take your medication. Ask your pharmacist any questions you have about refilling your prescription. It is important for you to keep a written list of all of the prescription and nonprescription ([id number]) medicines you are taking, as well as any products such as vitamins, minerals, or otherdietary supplements. You should bring this list with you each time you visit a doctor or if you areadmitted to a hospital. It is also important information to carry with you in case of emergencies. This report on medications is for your information only, and is not considered individual patient advice. Because of the changing nature of drug information, please consult your physician or pharmacist about specific clinical use. The [employer] represents that the information provided hereunder was formulated with a reasonable standard of care, and in conformity with professional standards in the field. The [employer] makes no representations or warranties, express or implied, including, but not limited to, any implied warranty of merchantability and/or fitness for a particular purpose, with respect to such information and specifically disclaims all such warranties. Users are advised that decisions regarding drug therapy are complex medical decisions requiring the independent, informed decision of an appropriate health acute care physical therapist, and the information is provided for informational purposes only. The entire monograph for a drug should be reviewed for a thorough understanding of the drug's actions, uses and side effects. The [employer] does not endorse or recommend the use of any drug.The information is not a substitute for medical care. AHFS?? Patient Medication Information???. ?? Copyright, 2023. The [employer]??, [address], [address], [place], [place]. All Rights Reserved. Duplication for commercial use must be authorized by [facility]. Selected Revisions: March 22, 2021. AHFS?? Patient Medication Information???. ?? Copyright, 2023 ?? Patient Care team information Care Team Personnel Name: Gus Mcgraw RN Position: [facility] RN Member Role: Primary Care Nurse Name: Patience Mcpherson RN Position: [facility] RN Member Role: Primary Care Nurse Name: Therese Gross RN Position: [facility] RN Member Role: Primary Care Nurse Name: Isadora Rice RN Position: [facility] RN Member Role: Primary Care Nurse Name: Erwin RNStas Position: [facility] RN Member Role: Primary Care Nurse Name: Melanie Sainz RN Position: [facility] RN Member Role: Primary Care Nurse Name: Melani CITY DRIVER, Kavita Brooks Position: [facility] Associate Professional Member Role: Primary Care Nurse Address: Address: [address] [place] [id number] Name: Not on Staff, PCP Position: [facility] Physician (General Medicine) Member Role: PCP Name: See Chavez RN Position: [facility] RN Member Role: Primary Care Nurse Name: Myke Mcfadden RN Position: [facility] RN Member Role: Primary Care Nurse Name: Monika Marquez RN Position: [facility] RN Member Role: Primary Care Nurse Name: Elaine Reis RN Position: [facility] RN Member Role: Primary Care Nurse Name: Veronika Dinero LPN Position: [facility] RN Member Role: Primary Care Nurse Care Team Related Persons Name: JEANNE GIRON Address: [address] [place] [address] Name: CHARITO DOOLEY Address: home [address] [place] [address]
--- OUTSIDE RECORDS SUMMARY | 2024-02-03 15:00 | XMS_ITS | Continuity of Care Document ---
Author Organization [facility] Address [address], [address], [address] [place] [id number]- Care Team Providers Care Leak Inspector Name Role Phone Not on Staff, PCP Primary Care Physician Unavail able Encounter [facility] Date(s): 12/02/23 - 01/02/24 [facility] [address], [address] [place] [id number]- Attending Physician: Not on Staff, Attending MD Allergies, Adverse Reactions, Alerts Substance Reaction Severity Status erythromycin rash Active cyclobenzaprine Active Immunizations Given and Recorded Vaccine Date Status Refusal Reason tetanus/diphtheria/pertussis, acel(Tdap) 07/13/20 Recorded tetanus/diphtheria/pertussis, acel(Tdap) 12/23/09 Recorded Medications cloBAZam 20 mg oral tablet 1 tablet = 20 mg, By Mouth, 2 times a day, # 60 tablet, 0 Refills, Maintenance, 12/19/23 10:24:00 EDT, Tablet, [id number], Partial fill upon patient request if the prescription is for a schedule II opioid drug., 180, cm, 12/19/23 3:34:00 EDT,... Start Date: 12/19/23 Stop Date: 01/18/24 Status: Ordered Combivent Respimat 20 mcg-100 mcg/inh inhalation aerosol 1 puffs, Inhalation, 4 times a day, PRN Wheezing/Shortness of Breath, # 4 Gm, 0 Refills, Maintenance, 12/28/20 9:07:00 EDT, Aerosol, Partial fill upon patient request if the prescription is for a schedule II opioid drug. Start Date: 12/28/20 Status: Ordered hydrOXYzine hydrochloride 25 mg oral tablet 1 tablet = 25 mg, By Mouth, 4 times a day, PRN for anxiety, # 40 tablet, 0 Refills, Maintenance, 12/25/23 19:22:00 EDT, Tablet, Partial fill upon patient request if the prescription is for a scheduleII opioid drug. Start Date: 12/25/23 Status: Ordered Keppra 1000 mg oral tablet = 1,500 mg, By Mouth, 2 times a day, # 90 tablet, 0 Refills, Maintenance, 12/27/23 7:37:00 EDT, Tablet, [facility], Partial fill upon patient request if the prescription is for a schedule II opioid drug., 180, cm, 12/27/23 2:43:00 EDT, H... Start Date: 12/27/23 Stop Date: 01/26/24 Status: Ordered lamotrigine 150 mg oral tablet 2 tablets, By Mouth, 2 times a day, Maintenance, 01/29/21 15:28:00 EST, Tablet, Partial fill upon patient request if the prescription is for a schedule II opioid drug. Start Date: 01/29/21 Status: Ordered Melatonin 3 mg oral tablet TAKE 2 TABLETS BY MOUTH AT BEDTIME IF NEEDED FOR SLEEP Start Date: 12/25/23 Status: Ordered Motrin Tablet 600 mg, By Mouth, 3 times a day with meals, Refills 0, Maintenance, 12/01/21 17:34:00 EDT, Partial fill upon patient request if the prescription is for a schedule II opioid drug. Start Date: 12/01/21 Status: Ordered ofloxacin 0.3% ophthalmic solution 2 drops, Eye, Left, 4 times a day, for 10 days, # 10 mL, 0 Refills, Acute 01/07/24 7:07:00 EDT, 12/28/23 7:07:00 EDT, Ophth Solution, [facility] 3, Partial fill upon patient request if the prescription is for a schedule II opioid drug., 2... Start Date: 12/28/23 Stop Date: 01/07/24 Status: Ordered olanzapine 5 mg oral tablet 5 mg, 1, tablet, By Mouth, Daily at bedtime, # 30 tablet, Refills 0, Maintenance, 11/20/23 8:26:00 EDT, Partial fill upon patient request if the prescription is for a schedule II opioid drug. Start Date: 11/20/23 Status: Ordered sertraline 50 mg oral tablet = 100 mg, By Mouth, Daily, 0 Refills, Maintenance, 12/19/23 7:31:00 EDT, Tablet, Partial fill upon patient request if the prescription is for a schedule II opioid drug. 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 Polysubstance abuse Confirmed Active 1Problem added by Discern Expert Social History Social History Type Response Smoking Status 5-9 cigarettes (betw een 1/4 to 1/2 pack)/day in last 30 days; Interested in cessation: No entered on: 08/17/22 Sex Patient Care team information Care Team Personnel Name: Gus Mcgraw RN Position: [facility] RN Member Role: Primary Care Nurse Name: Patience Mcpherson RN Position: [facility] RN Member Role: Primary Care Nurse Name: Therese Gross RN Position: [facility] RN Member Role: Primary Care Nurse Name: Isadora Rice RN Position: S RN Member Role: Primary Care Nurse Name: Joseluis Thorpe RN Position: [facility] RN Member Role: Primary Care Nurse Name: Stas Erwin RN Position: S RN Member Role: Primary Care Nurse Name: Valencia Fisher Position: [facility] RN Supv Member Role: Primary Care Nurse Name: Francesco Baca RN Position: S RN Member Role: Primary Care Nurse Name: Angelika Gu RN Position: S RN Member Role: Primary Care Nurse Name: Melanie Sainz RN Position: S RN Member Role: Primary Care Nurse Name: Kavita Polo NP Position: S Associate Professional Member Role: Primary Care Nurse Address: Address: [address] [place] [id number]- Name: [place] RN, Beau Ward Position: [facility] RN Member Role: Primary Care Nurse Name: Not on Staff, PCP Position: [facility] Physician (General Medicine) Member Role: PCP Name: Evaristo Huggins RN Position: S RN Member Role: Primary Care Nurse Name: See Chavez RN Position: [facility] RN Member Role: Primary Care Nurse Name: Myke Mcfadden RN Position: [facility] RN Member Role: Primary Care Nurse Name: Monika Marquez RN Position: [facility] RN Member Role: Primary Care Nurse Name: Elaine Reis RN Position: [facility] RN Member Role: Primary Care Nurse Name: Clay Quiñonez RN Position: [facility] RN Member Role: Primary Care Nurse Name: Veronika Dinero LPN Position: [facility] RN Member Role: Primary Care Nurse Name: Paul Ruiz RN Position: [facility] RN Member Role: Primary Care Nurse Care Team Related Persons Name: JEANNE GIRON Address: [address] [place] [address] Name: CHARITO DOOLEY Address: home [address] [place] [address]
--- OUTSIDE RECORDS SUMMARY | 2024-02-03 15:00 | XMS_ITS | Continuity of Care Document ---
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 Name Role Phone Name Matthieu AVILA Primary Care Physician Encounter [facility] Date(s): 01/15/24 - 01/17/[address] [address] Encounter Diagnosis Seizures(Final) - 01/15/24 Seizures(Final) - 01/17/24 Discharge Disposition: A-Transfer VNA/Home Health Attending Physician: Cintia Arizmendi MD Admitting Physician: Mary Somers MD, Eladio Brar Referring Physician: Not on Staff, Referring MD Allergies, Adverse Reactions, Alerts Substance Reaction Severity Status cyclobenzaprine Active erythromycin rash Active Immunizations Given and Recorded Vaccine Date Status Refusal Reason tetanus/diphtheria/pertussis, acel(Tdap) 07/13/20 Recorded tetanus/diphtheria/pertussis, acel(Tdap) 12/23/09 Recorded Medications Acetaminophen Tablet 650 mg, Tablet, By Mouth, Every 4 hours, PRN for Pain , Mild, Temperature Greater than 100.5, Routine, 01/15/24 16:42:00 EST Start Date: 01/15/24 Stop Date: 01/18/24 Status: Discontinued cloBAZam 20 mg oral tablet 1 tablet = 20 mg, By Mouth, 2 times a day, # 60 tablet, 0 Refills, Maintenance, 01/17/24 14:21:00 EST, Tablet, [facility], Partial fill upon patient request if the prescription is for aschedule II opioid drug., 180, cm, 01/04/24 13:52:0... Start Date: 01/17/24 Stop Date: 02/16/24 Status: Ordered Combivent Respimat 20 mcg-100 mcg/inh [...] day, # 90 tablet, 0 Refills, Maintenance, 01/17/24 14:22:00 EST, Tablet, [facility], Partial fill upon patient request if the prescription is for a schedule II opioid drug., 180, cm, 01/04/24 13:52:00 EDT,... Start Date: 01/17/24 Stop Date: 02/16/24 Status: Ordered lamotrigine 100 mg oral tablet 300 mg, By Mouth, 2 times a day, # 60 tablet, Refills 0, Tot. Refills 0, Maintenance, 01/17/24 14:21:00 EST, Route to Pharmacy Electronically, [facility], Partial fill upon patient request if the prescription is for a schedule II opioid... Start Date: 01/17/24 Stop Date: 02/16/24 Status: Ordered Melatonin 3 mg oral tablet [...] 12/01/21 Status: Ordered Motrin Tablet 600 mg, Tablet, By Mouth, 3 times a day with meals, PRN for Pain , Mild, Routine, 01/16/24 8:00:00 EST Start Date: 01/16/24 Stop Date: 01/18/24 Status: Discontinued olanzapine 5 mg oral tablet 5 mg, [...] II Confirmed Active Polysubstance abuse Confirmed Active Tobacco user Confirmed Active 1Problem added by Discern Expert Results Radiology Reports * Exam Date Time Procedure Performing Provider Status 01/15/24 8:25 PM Chest 2 Views Frontal and Lat Blackbur n , Zen; Auth (Verified) Notes: (Chest 2 Views Frontal and Lat) Reason For Exam: Shortness of Breath, Fever;Other: RESULT: Chest 2 Views Frontal and Lat Chest 2 Views Frontal and Lat Reason: Other:; Shortness of Breath, Fever; Clinical Question(s): Pneumonia; Order Comment: @1444 pt collared COMPARISON: None. FINDINGS: LINES AND TUBES: None. LUNGS AND PLEURA: Clear lungs. Normal pulmonary vascularity. No pleural effusion. No pneumothorax. HEART, MEDIASTINUM AND VELMA: Heart is normal in size. Normal mediastinal and hilar contour. BONES AND SOFT TISSUES: No acute abnormality. IMPRESSION: No acute abnormality. WSN: [id number] Ordering Physician: Ellen Dockery Dictated By: Nicolás Grey MD Dictated Date/Time: 01/15/24 8:35 pm Reviewed By: Nicolás Grey MD Signed By: Nicolás Grey MD Signed Date/Time: 01/15/24 8:35 pm Transcribed By: JOJO Transcribed Date/Time: 01/15/24 8:35 pm * Exam Date Time Procedure Performing Provider Status 01/15/24 2:[address] Cervical Spine W/O Contrast Clokey , Kira; Auth (Verified) Notes: (CT Cervical Spine W/O Contrast) Reason For Exam: Neck trauma, dangerous injury mechanism;Other: RESULT: CT Cervical Spine W/O Contrast CT Head/Brain W/O Contrast, CT Cervical Spine W/O Contrast INDICATION: Hx of Present Illness: EMS calledby fam. Multiple szs today with multiple falls. Onhands and knees in bathroom EMS arrival not answering questions. Now more alert, GCS 15. Unknown head strike. c o neck pain, ccollar applied. Takes lamictal and keppra approp. #18 LFA; Reason: Other:; Brain mass or lesion; Clinical Question(s): Hematoma; Order Comment: TECHNIQUE: Noncontrast head CT using axial technique was reconstructed in axial and coronal planes.Noncontrast spiral CT through the cervical spine was formatted in 3 planes. Automatic tube modulation was used for the cervical spine and iterative dose reconstruction was used for both the head and cervical spine to optimize scan parameters and image quality. CTDIvol Body: 18.50 mGy, DLP Body: 501 mGy*cm. CTDIvol Head: 45.20 mGy, DLP Head: 965 mGy*cm. COMPARISON: None. FINDINGS: Golf Course Starter View Findings, Lines and Tubes: None. BRAIN AND EXTRA-AXIAL SPACES: No parenchymal hemorrhage, midline shift, or mass effect. Luke-white matter differentiation is wellpreserved. No acute infarct. Similar prominence of the posterior fossa CSF space. Ventricles, sulci, and basilar cisterns are normal. No white matter lesions. No subarachnoid hemorrhage. No subdural or epidural collection. CALVARIUM, SKULL BASE, AND SOFT TISSUES: No fractures or suspicious bony lesions. There is mucosal thickening at the frontal, ethmoid and maxillary paranasal sinuses. Visualized orbits and globes are intact. The [...] of the head or cervical spine. WSN: [id number] Ordering Physician: Ellen Dockery Dictated By: Eva Dumas MD Dictated Date/Time: 01/15/24 2:44 pm Reviewed By: Eva Dumas MD Signed By: Eva Dumas MD Signed Date/Time: 01/15/24 2:44 pm Transcribed By: JOJO Transcribed Date/Time: 01/15/24 2:35 pm * Exam Date Time Procedure Performing Provider Status 01/15/24 2:[address] Head/Brain W/O Contrast Ra rachana Ventura; Auth (Verified) Notes: (CT Head/Brain W/O Contrast) Reason For Exam: Brain mass or lesion;Other: RESULT: CT Head/Brain W/O Contrast CT Head/Brain W/O Contrast, CT Cervical Spine W/O Contrast INDICATION: Hx of Present Illness: EMS calledby fam. Multiple szs today with multiple falls. Onhands and knees in bathroom EMS arrival not answering questions. Now more alert, GCS 15. Unknown head strike. c o neck pain, ccollar applied. Takes lamictal and keppra approp. #18 LFA; Reason: Other:; Brain mass or lesion; Clinical Question(s): Hematoma; Order Comment: TECHNIQUE: Noncontrast head CT using axial technique was reconstructed in axial and coronal planes.Noncontrast spiral CT through the cervical spine was formatted in 3 planes. Automatic tube modulation was used for the cervical spine and iterative dose reconstruction was used for both the head and cervical spine to optimize scan parameters and image quality. CTDIvol Body: 18.50 mGy, DLP Body: 501 mGy*cm. CTDIvol Head: 45.20 mGy, DLP Head: 965 mGy*cm. COMPARISON: None. FINDINGS: Golf Course Starter View Findings, Lines and Tubes: None. BRAIN AND EXTRA-AXIAL SPACES: No parenchymal hemorrhage, midline shift, or mass effect. Luke-white matter differentiation is wellpreserved. No acute infarct. Similar prominence of the posterior fossa CSF space. Ventricles, sulci, and basilar cisterns are normal. No white matter lesions. No subarachnoid hemorrhage. No subdural or epidural collection. CALVARIUM, SKULL BASE, AND SOFT TISSUES: No fractures or suspicious bony lesions. There is mucosal thickening at the frontal, ethmoid and maxillary paranasal sinuses. Visualized orbits and globes are intact. The [...] of the head or cervical spine. WSN: [id number] Ordering Physician: Ellen Dockery Dictated By: Eva Dumas MD Dictated Date/Time: 01/15/24 2:44 pm Reviewed By: Eva Dumas MD Signed By: Eva Dumas MD Signed Date/Time: 01/15/24 2:44 pm Transcribed By: JOJO Transcribed Date/Time: 01/15/24 2:35 pm Vital Signs Most recent to oldest [Reference Range]: 1 2 3 4 Oxygen Saturation [94-100 %] 99 % (01/17/24 12:00 PM) 100 % (01/17/24 8:00 AM) 97 % (01/17/24 3:59 AM) Pulse Rate [55-90 bpm] 61 bpm (01/17/24 12:00 PM) 59 bpm (01/17/24 8:00 AM) 58 bpm (01/17/24 3:59 AM) 58 bpm (01/17/24 3:59 AM) Blood Pressure [90-138/55-84 mm Hg] 135/66mm Hg (01/17/24 12:00 PM) 138/72mm Hg (01/17/24 8:00 AM) 118/61mm Hg (01/17/24 3:59 AM) 118/61mm Hg (01/17/24 3:59 AM) Respiratory Rate [16-30 br/min] 18 br/min (01/17/24 12:00 PM) 18 br/min (01/17/24 11:37 AM) 18 br/min (01/17/24 11:37 AM) Temperature [96.8-100.4 DegF] 97.9 DegF (01/17/24 12:00 PM) 97.7 DegF (01/17/24 8:00 AM) 98.5 DegF (01/17/24 3:59 AM) 98.5 DegF (01/17/24 3:59 AM) Mode of Delivery (Oxygen) Room air (01/17/24 12:00 PM) Room air (01/17/24 8:00 AM) Room air (01/17/24 3:59 AM) Blood pressure sites Arm, right (01/17/24 12:00 PM) Arm, right (01/17/24 8:00 AM) Arm, left (01/17/24 3:59 AM) Temperature Route Oral (01/17/24 12:00 PM) Oral (01/17/24 8:00 AM) Temporal (01/17/24 3:59 AM) Temporal (01/17/24 3:59 AM) Social History Social History Type Response Smoking Status 5-9 cigarettes (betw een 1/4 to 1/2 pack)/day in last 30 days; Interested in cessation: No entered on: 08/17/22 Sex Admission evaluation note * Yunior AVILA, Lupis Wheeler: PERFORM, MODIFY Event Display: Admission Note Authored Date: [id number] Patient: ??RAND WILKERSON ? Age:??43 Years?Sex:??Male?:??1980?? Chief Complaint/Reason for Consultation EMS calledby fam. Multiple szs today with multiple falls. Onhands and knees in bathroom EMS arrivalnot answering questions. Now more alert, GCS 15. Unknown head strike. c/o neck pain, ccollar applied. Takes lamictal and keppra approp. #18 LFA History of Present Illness ??43-year-old male with PMH of juvenile myoclonic seizures, bipolar disorder, polysubstance abuse, alcohol use disorder,, COPD was brought to the ED after having multiple seizures today associated with a fall. ?? Patient's medical chart reviewed, seen and examined at bedside.?? Patient is alert awake and oriented x 3 by time of my evaluation, brought to the ED after multiple seizures today.?? After bringing to the ED patient had??2 episodes of generalized tonic-clonic seizures,??first episode??broke before he received 2 mg of IV lorazepam.?? At that time he was slightly desaturating to 80s and was placed on nonrebreather with a good effort and subsequently weaned off.?? Was postictal later on.?Secondepisode of seizure-like activity while he is getting the CT scan where he started twitching for fewseconds and stopped talking to the ED provider but immediately resumed interacting right after the t witching was stopped.?? Currently denies any fever, chills, cough, sore throat, runny nose, chest pain, shortness of breath, palpitations, nausea, vomiting, cough, abdominal pain, constipation, diarrhea, dysuria.?ED provider able to reach out to patient's brother/HCP Dom for collateral information.?? As per the family no one witnessed patient's seizure but they heard a thud when patient wasin the bathroom and EMS was called.?? Has a VNA who comes every day and likely compliant with his medications.?? Patient had issues with alcohol previously but has been sober for a while but had picked up drinking alcohol in the last couple of days.?? Endorses smoking??about??3/4??of pack??every day cut down from about 3 packs/day.?? Denies any other illicit drug use. ?? Initially in the ED patient was afebrile, HR 68 RR 22, BP 160/59, saturation 98% on room air.?? WBC 6.6, Hgb 13.6, PLT 144, electrolytes normal, BUN/creatinine 12/0.85, bicarb 18, anion gap 18 blood glucose 88 AST/ALT normal T. bili normal ethanol nondetected Keppra normal CT head/C-spine no acute abnormalities of the head/C-spine.?? Chest x-ray no acute abnormalities.?? Patient was given fosphenytoin 2 g, Keppra 2100 mg, lorazepam x 2.?? Patient will be admitted to inpatient medicine service for further management Review of Systems All systems reviewed and are negative except as mentioned in HPI Objective ? Vital Signs?? Temperature: 97.6 DegF (01/16/24 01:43:00) Temperature Route: Temporal (01/16/24 01:43:00) Pulse Rate: 79 bpm (01/16/24 01:43:00) Respiratory Rate: 18 br/min (01/16/24 01:43:00) Systolic Blood Pressure: 123 mm Hg (01/16/24 01:43:00) Diastolic Blood Pressure: 66 mm Hg (01/16/24 01:43:00) Blood pressure sites: Arm, left (01/16/24 01:43:00) Mean Arterial Pressure: 85 mm Hg (01/16/24 01:43:00) Pulse Pressure: 57 mm Hg (01/16/24 01:43:00) Oxygen Saturation: 98 % (01/16/24 01:43:00) Mode of Delivery (Oxygen): Room air (01/16/24 01:43:00) Early Warning Score: 5 (01/16/24 01:44:35) ? Pain Scores 1 - 10 Pain Scale Score: 3 (13:44) ?? Intake/Output? 01/14 15:21 01/15 07:00 01/14 07:00 01/13 07:00 01/12 07:00 ?? 01/15 05:49 01/15 05:49 01/15 06:59 01/14 06:59 01/13 06:59 Intake ?140.0 ?0 ?140.0 ?0 ?0 Output ?0 ?0 ?0 ?0 ?0 Net Total ?140.0 ?0 ?140.0 ?0 ?0 ? Precautions Seizure Precautions ? Physical Exam Gen- not in acute distress,comfortabily lying on bed, speaking in full sentences. HEENT- Normocephalic, Atraumatic, No pallor, icterus Neck-supple, no JVD Heart-S1S2(+),??regular, no murmurs. lungs- Clear, b/l air entry, no wheezing. Abdomen-soft, nontender,nondistended,??bowel sounds present, No guarding. Extremities-pulses palpable. No pedal edema. No calf tenderness. Neurological- AAO??3. No gross focal neurological deficits noted. Psychiatric-patient???s mood is stable. ? (01/15/2024 14:[address] Head/Brain W/O Contrast) ?? IMPRESSION: ?? No acute abnormality of the head or cervical spine. ? (01/15/2024 20:25 EST Chest 2 Views Frontal and Lat) IMPRESSION: ?? No acute abnormality. Assessment/Plan 43-year-old male with PMH of juvenile myoclonic seizures, bipolar disorder, polysubstance abuse, alcohol use disorder,, COPD was brought to the ED after having multiple seizures today associated witha fall. Initially in the ED patient was afebrile, HR 68 RR 22, BP 160/59, saturation 98% on room air.?? WBC 6.6, Hgb 13.6, PLT 144, electrolytes normal, BUN/creatinine 12/0.85, bicarb 18, anion gap 18 blood glucose 88 AST/ALT normal T. bili normal ethanol nondetected Keppra normal CT head/C-spine no acute abnormalities of the head/C-spine.?? Chest x-ray no acute abnormalities.?? Patient was givenfosphenytoin 2 g, Keppra 2100 mg, lorazepam x 2.?? Patient will be admitted to inpatient medicine service for further management ?? 1. ??Seizures ??(R56.9)??likely again triggered by??resuming alcohol ingestion. 2. 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 3. ??Bipolar disorder ??(F31.9) Trazodone 50 mg daily, sertraline 100 mg daily, Zyprexa??5 mg daily at bedtime 4. ??Alcohol use disorder ??(F10.90)??will??maintained on CIWA protocol, thiamine, multivitamins 5. ??Polysubstance abuse ??(F19.10)??denies any other illicit drug use,??nicotine patch for smoking 6. ??COPD without exacerbation ??(J44.9)??as needed DuoNebs ?? VTE Prophylaxis:??Subcu Lovenox ?VTE Prophylaxis Assessment:??VTE Prophylaxis Ordered ?? Code Status:??Full resuscitation ?Order Code Status:??Code Status Ordered Diet???cardiac diet ?? Patient seen and examined on??01/15/2024 Histories Allergies Allergies ?(Active and Proposed Allergies Only) cyclobenzaprine? (Severity: Unknown severity, Onset: Unknown) erythromycin? (Severity: Unknown severity, Onset: Unknown) ?Reactions: rash ? Past Medical History/Problem List Active Problems(8) Alcohol use disorder Bipolar disorder COPD without exacerbation COVID-19 Juvenile myoclonic epilepsy Obese class II Polysubstance abuse Tobacco user ? Past Surgical History No surgery history [...] 20 mcg-100 mcg/inh inhalation aerosol)?1?puff(s)?Inhalation?4 times a day?Wheezing/Shortness of Breath Clobazam (cloBAZam 20 mg oral tablet)?1?tab(s)?20?Milligram?By Mouth?2 times a day?for 30?Days HydrOXYzine (hydrOXYzine hydrochloride 25 mg oral tablet)?1?tab(s)?25?Milligram?By Mouth?4 times a day?as needed?for anxiety Ibuprofen (Motrin Tablet)?600?Milligram?By Mouth?3 times a day with meals Lamotrigine (lamotrigine 150 mg oral tablet)?2 tablets?By Mouth?2 times a day levETIRAcetam (Keppra 1000 mg oral tablet)?1,500?Milligram?By Mouth?2 times a day?for 30?Days Melatonin (Melatonin 3 mg oral tablet)?TAKE 2 TABLETS BY MOUTH AT BEDTIME IF NEEDED FOR SLEEP Olanzapine (olanzapine 5 mg oral tablet)?5?Milligram?1?tablet?By Mouth?Daily at bedtime Sertraline (sertraline 50 mg oral tablet)?100?Milligram?By Mouth?Daily Thiamine (Vitamin B1 100 mg oral tablet)?100?Milligram?1?tablet?TAKE 1 TABLET BY MOUTH EVERY DAY?By Mouth?Daily Trazodone (traZODone 50 mg oral tablet)?50?Milligram?1?tablet?By Mouth?Daily at bedtime ? Inpatient Medications Medications (27) Active SCHEDULED: (13) Clobazam 10 mg Tablet (clobazam 10 mg oral tablet) ??20 mg, By Mouth, 2 times a day Enoxaparin 40 mg Inj (Enoxaparin Inj) ??40 mg 0.4 mL, Subcutaneous Injection, Daily Ibuprofen 600 mg Tablet (Motrin Tablet) ??600 mg, By Mouth, 3 times a day with meals Keppra 500mg Tablet (Keppra 500 mg oral tablet) ??1,500 mg, By Mouth, 2 times a day LamoTRIGINE 100 mg Tablet (lamotrigine 100 mg oral tablet) ??300 mg, By Mouth, 2 times a day NaCl 0.9% Flush 3ml (NaCL 0.9% Flush) ??3 mL, IV Push, Every 8 hours Nicotine 21 mg / 24 hour Patch (Nicotine Topical) ??21 mg, Topically, Daily Olanzapine 5 mg Tablet (olanzapine 5 mg oral tablet) ??5 mg, By Mouth, Daily at bedtime Remove Patch (Remove ??Patch) ??1 each, Topically, Daily Remove Patch (Remove ??Patch) ??1 each, Topically, Daily Sertraline 50 mg Tablet (sertraline 50 mg oral tablet) ??100 mg, By Mouth, Daily Thiamine 100 mg Tablet (Vitamin B1 100 mg oral tablet) ??100 mg, By Mouth, Daily Trazodone 50 mg Tablet (traZODone 50 mg oral tablet) ??50 mg, By Mouth, Daily at bedtime CONTINUOUS: (0) PRN: (14) Acetaminophen 325 mg Tablet (Acetaminophen Tablet) ??650 mg, By Mouth, Every 4 hours Albuterol/Ipratropium Inhalation Alana 3mL (Duoneb Inhalation Solution) ??1 vials, BAND Nebulizer, Every 4 hours Dextromethorphan-Guaifenesin 20 mg-200 mg/10 mL Liqu UD (Robitussin DM Liquid) ??10 mL, By Mouth, Every 4 hours Docusate Sodium 100 mg Capsule (Docusate Sodium Capsule) ??100 mg 1 capsule, By Mouth, 2 times a day HydrOXYzine HCL 10mg Tablet (hydrOXYzine hydrochloride 10 mg oral tablet) ??25 mg, By Mouth, 4 times a day Lorazepam 2 mg Inj Syringe (Ativan Inj) ??1 mg, IV Push Slowly, Every 2 hours Lorazepam 2 mg Inj Syringe (Ativan Inj) ??2 mg, IV Push Slowly, Every 2 hours Lorazepam 2 mg Inj Syringe (Ativan Inj) ??2 mg, IV Push Slowly, Every hour Lorazepam 2 mg Inj Syringe (Ativan Inj) ??2 mg, IV Push Slowly, Every 5 minutes Melatonin 3 mg Tablet (Melatonin Tablet) ??6 mg, By Mouth, Daily at bedtime NaCl 0.9% Flush 3ml (NaCL 0.9% Flush) ??3 mL, IV Push, Every 8 hours Polyethylene Glycol 17 Gm Powder (MiraLax Powder) ??17 Gm 1 pack/packet, By Mouth, Daily Senna Tablet ??8.6 mg 1 tablet, By Mouth, 2 times a day Simethicone 80 mg Chewable Tablet (Simethicone Tablet) ??80 mg, Chew, 3 times a day ? Results Recent Labs BLOOD COUNT & DIFF WBC 6.6 k/mm3 ()?? 01/15/2024 15:08 RBC 4.52 m/mm3 (Low)?? 01/15/2024 15:08 Hgb 13.6 Gm/dL (Low)?? 01/15/2024 15:08 Hct 40.5 % ()?? 01/15/2024 15:08 MCV 89.6 femtoliters ()?? 01/15/2024 15:08 MCH 30.1 pg ()?? 01/15/2024 15:08 MCHC 33.6 Gm/dL ()?? 01/15/2024 15:08 Platelet Count 144 k/mm3 (Low)?? 01/15/2024 15:08 RDW-SD 43.8 femtoliters ()?? 01/15/2024 15:08 MPV 11.1 femtoliters ()?? 01/15/2024 15:08 Nucleated RBC (Automated) 0.0 #/100 WBC'S ()?? 01/15/2024 15:08 Abs. NRBC 0.0 k/mm3 ()?? 01/15/2024 15:08 Abs. Neut 5.1 k/mm3 ()?? 01/15/2024 15:08 Abs. Lymph 1.1 k/mm3 ()?? 01/15/2024 15:08 Abs. [place] 0.4 k/mm3 ()?? 01/15/2024 15:08 Abs. Eo 0.1 k/mm3 ()?? 01/15/2024 15:08 Abs. Baso 0.0 k/mm3 ()?? 01/15/2024 15:08 Neut % 76.0 % ()?? 01/15/2024 15:08 Lymph % 16.3 % ()?? 01/15/2024 15:08 [place] % 6.2 % ()?? 01/15/2024 15:08 Eos % 0.8 % ()?? 01/15/2024 15:08 Baso % 0.5 % ()?? 01/15/2024 15:08 Imm Gran 0.2 % ()?? 01/15/2024 15:08 Abs. Imm Gran 0.0 k/mm3 ()?? 01/15/2024 15:08 ?? CHEM GENERAL Sodium 144 mmol/L ()?? 01/15/2024 14:06 Potassium 4.3 mmol/L ()?? 01/15/2024 14:06 Chloride 108 mmol/L (High)?? 01/15/2024 14:06 Bicarbonate Level 18 mmol/L (Low)?? 01/15/2024 14:06 Anion Gap 18 (High)?? 01/15/2024 14:06 Glucose Level 88 mg/dL ()?? 01/15/2024 14:06 Glucose, POC 78 mg/dL ()?? 01/15/2024 13:13 BUN 12 mg/dL ()?? 01/15/2024 14:06 Creatinine-Blood 0.85 mg/dL ()?? 01/15/2024 14:06 Estimated GFR Creatinine 111 ML/MIN/1.73 M2 ()?? 01/15/2024 14:06 Calcium 9.1 mg/dL ()?? 01/15/2024 14:06 Protein, Total 6.7 Gm/dL ()?? 01/15/2024 14:06 Albumin 3.9 Gm/dL ()?? 01/15/2024 14:06 AG Ratio 1.4 ()?? 01/15/2024 14:06 Alkaline Phosphatase 75 units/L ()?? 01/15/2024 14:06 AST (SGOT) 21 units/L ()?? 01/15/2024 14:06 ALT (SGPT) 12 units/L ()?? 01/15/2024 14:06 Bilirubin, Total 0.3 mg/dL ()?? 01/15/2024 14:06 ?? TOXICOLOGY/TDM Ethanol, Serum or Plasma NONE DETECTED mg/dL ()?? 01/15/2024 14:06 Levetiracetam Level 73.70 mg/L ()?? 01/15/2024 14:06 ? Urinalysis?? No qualifying data available. ? [1]??Chest 2 Views Frontal and Lat; Nicolás Grey MD 01/15/2024 20:25 EST EKG study * Event Display: ECG 12-Lead Authored Date: Please click on pdf link to open report * Event Display: ECG 12-Lead Authored Date: Ventricular Rate: 75 BPM Atrial Rate: 75 BPM P-R Interval: 186 ms QRS Duration: 114 ms Q-T Interval: 424 ms QTC Calculation(Bazett): 473 ms P [place]: 28 degrees R [place]: 14 degrees T [place]: 18 degrees Normal sinus rhythm Minimal voltage criteria for LVH, may be normal variant ( Mertzon product ) Borderline ECG When compared with ECG of 15-DEC-2023 20:20, QT has lengthened Confirmed by PANFILO AVILA [facility] ([id number]) on 01/16/2024 5:59:36 PM [place] * Abdias BROWN, Henna: PERFORM, SIGN, VERIFY Event Display: [facility] Authored Date: Patient: RAND WILKERSON [facility]: [id number] Age: 43 years Sex: Male : 1980 Associated Diagnoses: None Author: Abdias BROWN, Henna Findings Problem Related to Alteration in Neurological : Alteration in Neurological Function/new 01/17/2024 12:00 EST Alteration in Neuro status Related to Seizure Goals & Outcomes, Neurological Lab studies/diagnostic tests within pt specific limits, Pt is safe with transfers & activities, Pt will be discharged without infection, Pt will be Neurologically stable, Pt will maintain intact skin integrity, Pt will remain free from injury, Pt will state importance of adhering to medication regime, Pt/caregiver will receive psychosocial support as needed, Pt/caregiver will state understanding of the D/C plan, Pt will be free from complications r/t seizure activity Interventions, Neurological Assess/monitor neurologic status, Assess/monitor VS per unit standards & prn, Call/Report variances in assessments to provider, Collaborate w/ provider to implement appropriate guidelines, Collaborate with Nutrition, Collaborate with provider re: medication regime, Identify psychosocial issues related to diagnosis/illness, If no bowel movement in 3 days activate bowel regime, Keep patient's head & body in good alignment, Maintain patient safety if unsteady gait, Physical assessment per unit standards, Provide emotional support to Pt/caregiver, Assess & monitor for seizure activity BH Goals/Interventions, Neurological Yes Neurological, Problem Start 01/15/2024 5:30 Reviewed plan with, Neurological Patient Patient Progression, Neurological Pt progressing according to plan . Nursing Data Neurological Data. : Neurological Data. 01/17/2024 10:30 EST Tongue Disposition Midline Neurological Symptoms History of seizures, Tremors Level of Consciousness Full Consciousness Orientated to person, place, time Person, Place, Time Facial Symmetry Intact Characteristics of Speech Clear and normal Swallowing Difficulty None Pupil description, left Round Pupil description, right Round Pupil Size, Left 3 mm Pupil Size, [...] RLE Intact Movement LUE Spontaneous, To command (Modified) Movement RUE Spontaneous, To command (Modified) Movement LLE Spontaneous, To command (Modified) Movement RLE Spontaneous, To command (Modified) Gait Unable to assess Tremors Resting Response Eye Opening Spontaneously Motor Response-Adult Obeys commands Verbal Response-Adult Oriented and converses Nica Coma Score 15 1 - 10 Pain Scale Score 6 Neuro WNL except Headache Mild Memory Intact Swallow - Neuro Normal . Evaluation AO 3. Speech clear. PERRLA. MENCHACA 1-2, Mid back /10. Denies dizziness, visual changes, numbness, tingling. RABAGO 5/5. Mild resting tremor. On RA, satting 99- 100. Lungs clear. Denies SOB, CP, cough. LBM 11-10. PRN docusate and Miralax. Anderson patch left arm. IV RFA patent. No seizure activity noted or reported. Seizure protocols in place. Discharged.. * Kalyan Cazares RN: PERFORM, SIGN, VERIFY Event Display: Progress Note Hospital Authored Date: Patient: RAND WILKERSON Age: 43 years Sex: Male : 1980 Associated Diagnoses: None Author: Kalyan Cazares RN Findings Problem Related to Alteration in Neurological : Alteration in Neurological Function/new 01/16/2024 22:00 EST Alteration in Neuro status Related to Seizure Goals & Outcomes, Neurological Pt will be free from complications r/t seizure activity Interventions, Neurological Assess/monitor for abnormal posturing, Assess/monitor for gaze pattern/extraocular movements, Assess/monitor for increased Intracranial Pressure, Assess/monitor neurologicstatus, Assess/monitor VS per unit standards & prn, Call/Report variances in assessments to provider, Collaborate w/ provider to implement appropriate guidelines, Collaborate with Nutrition, Collaborate with provider re: medication regime, Document & Monitor O2 Sats; Administer O2 as ordered, Emergency airway equipment at bedside, Identify psychosocial issues related to diagnosis/illness,If no bowel movement in 3 days activate bowel regime, [place] alternate means of communication, Ke ep patient's head & body in good alignment, Maintain HOB at least 30 deg, Maintain normothermia, report temp >101.5 F, Maintain patient safety if unsteady gait, Maintain strict intake & output, Monitor Fluid & Electrolytes, Serum Osmolarity, Monitor for headaches, nausea, vomiting, Monitor speech fluency, aphasia, word finding difficulty, Physical assessment per unit standards, Prov deyanira emotional support to Pt/caregiver BH Goals/Interventions, Neurological Yes Neurological, Problem Start 01/15/2024 5:30 Reviewed plan with, Neurological Patient Patient Progression, Neurological Pt progressing according to plan Comment: Neurological Neuro intact.No seizure activity noted. . Nursing Data Neurological Data. : Neurological Data. 01/16/2024 20:00 EST Tongue Disposition Midline Neurological Symptoms Other: admitted for seizure activity Level of Consciousness Full Consciousness Orientated to person, place, time Person, Place, Time, Event Hallucinations None Facial Symmetry Intact Characteristics of Speech Clear and normal Swallowing Difficulty None Pupil description, left Regular Pupil description, right [...] LLE Intact Sensation RLE Intact Movement LUE Spontaneous Movement RUE Spontaneous Movement LLE Spontaneous Movement RLE Spontaneous Gait Steady Response Eye Opening Spontaneously Motor Response-Adult Obeys commands Verbal Response-Adult Oriented and converses Nica Coma Score 15 Neurological Comments Neuro intact.No seizure activity noted. 1 - 10 Pain Scale Score 6 Pain Interventions Pharmacological, Repositioning Pain relief acceptable Yes Pain Comment MENCHACA pain Neuro WNL except Corneal/Blink Reflex Intact right, Intact left Eyes and Movements Conjugate gaze: Move in same direction at same speed Headaches, Characteristic Bilateral Headaches, Duration Intermittent Swallow - Neuro Normal . Evaluation AOx4.VSS.Neuro intact.No seizure activity noted.See biophysical assessment.Emotional support provided.safety maintained.. * Monika June RN: PERFORM, SIGN, VERIFY Event Display: Progress Note Hospital Authored Date: Patient: RAND WILKERSON Age: 43 years Sex: Male : 1980 Associated Diagnoses: None Author: Monika June RN Findings Nursing Data Neurological Data. : Neurological Data. 01/16/2024 10:58 EST Level of Consciousness Full Consciousness Orientated to person, place, time Person, Time, Event Facial Symmetry Intact Strength LUE 5-Active movement against gravity & [...] Obeys commands Verbal Response-Adult Oriented and converses [place] Coma Score 15 Pain Interventions Non-pharmacological, Pharmacological, PRN medication, Repositioning, Rest Neuro WNL except Memory Intact . Narrative/Incidental Patient AOx4, stable on RA. C/o MENCHACA 07/15 gven schedule ibuprofen and tylenol with good effect. CIWA in place scoring at 1-2. No s/s of seizures. Safety and seizure precuations maintained. call [facility] [place] [facility]. see cis for more details. . Consult note * Forrest AVILA, Behzad Krishnamurhty: PERFORM, MODIFY, MODIFY, MODIFY Event Display: Consultation Note Authored Date: Patient: ??RAND WILKERSON ? Age:??43 Years?Sex:??Male?:??1980?? History of Present Illness Admitted with multiple seizures with multiple falls, with postictal confusion.??Had a witnessed seizure in the ED.??Labs were remarkable for a high anion gap metabolic acidosis and ethanol level nondetected.?? Patient was given Ativan and Keppra 2500 mg IV??at 13:38 on 01/14 in ED. Keppra level drawn AFTER this at 14:06 an was 73.3. No more sz since admission. ?? Mutiple admissions for sz in past several months. Had increase in Clobazam most recently. ?? Stateshas VNA and is compliant with meds. Physical Exam Vitals & Measurements T:??97.8?F?? HR:??57??(Peripheral)?? RR:??18?? BP:??127/65?? SpO2:??97%?? Alert attentive cooperative, conversant, grossly normal cognition. EOMI, no ptosis or nystagmus. Normal facial strenght, mild lingual dysarthria. Moves arms well. ?? LVT??01/15/24?? 14:06 - 73.7 Assessment/Plan Break through sz in setting of EtOH abuse with level of 0 and Keppra level of 73 drawn less than anhour after a high dose was given IV .?? Despite a flurry of sz prior to admission with one in the ED, after rx with ativan and Keppra, had none since. ?? Lactic acidosis suggests true sz but may not necessarily be epileptic. ?? Despite multiple admissions with EtOH ND, at least this admission pt is not getting benzos on the CIWA protocol, sz's stopped and pt has not been reported as being in WD.?? Despite hx polysubstance abuse, numerous tox screens only revealed benzos ?? Suspect medication noncompliance.?? If pt had already been therapeutic on Keppra 1500 bid (whichis a high dose) PRIOR to a 2500 mg IV load, would expect Keppra level to be much higher despite pt stating he is complaint.? - Continue clobazam 20 mg twice daily - Continue lamotrigine 300 mg??twice a day - Continue??Keppra 1500 mg twice a day - Check Clobazam, Keppra and Lamotrigine levels in 1 week to determine his baseline levels which can help determine his compliance with meds. -??Stress need for compliance - If pt returns to ED with more sz in future, make sure AED levels are drawn BEFORE administration of any AEDs in the ED - F/U??with sz??clinic.?? Already has appt made at [facility] neurology with epileptologist at the end of the??monht??(previously followed by Elio who had retired). ? Will sign off. Please call if questions or problems. Problem List/Past Medical History Ongoing Alcohol use disorder Bipolar disorder COPD without exacerbation COVID-19 Juvenile myoclonic epilepsy Obese class II Polysubstance abuse Tobacco user Procedure/Surgical History No qualifying data available. Home Medications Albuterol/Ipratropium: 1 puffs, Inhalation, 4 times a day Clobazam: 20 mg = 1 tablet, By Mouth, 2 times a day HydrOXYzine: 25 mg = 1 tablet, By Mouth, 4 times a day, PRN (for anxiety) Ibuprofen: 600 mg, By Mouth, 3 times a day with meals Lamotrigine: 2 tablets, By Mouth, 2 times a day levETIRAcetam: 1,500 mg, By Mouth, 2 times a day Melatonin: TAKE 2 TABLETS BY MOUTH AT BEDTIME IF NEEDED FOR SLEEP Olanzapine: 5 mg = 1 tablet, By Mouth, Daily at bedtime Sertraline: 100 mg, By Mouth, Daily Thiamine: 100 mg = 1 tablet, By Mouth, Daily Trazodone: 50 mg = 1 tablet, By Mouth, Daily at bedtime Allergies cyclobenzaprine erythromycin??(rash) Social History Alcohol Use: Current. Frequency: 1-2 times per week. Type: Beer. Exercise Self assessment: Good condition. Home/Environment Living situation: Home/Independent. Lives with: Mother. Nutrition/Health Diet: Regular. Substance Abuse Use: Past. Type: Cocaine, Heroin, Marijuana. Tobacco Use: 5-9 cigarettes (between 1/4 to 1/2 pack)/day in last 30 days. Interested in cessation: No. Family History No family history recorded. Note * Henna Calero RN: PERFORM Event Display: Discharge/Transfer Note Hospital Authored Date: [id number] Nursing Discharge Note Entered On: 01/17/2024 17:36 EST Performed On: 01/17/2024 17:35 EST by Henna Calero RN Nursing Discharge Note 2 Discharge Time : 01/17/2024 17:35 EST Discharge Level of Care at Discharge : Homehealth/VNA Discharge VNA/Hospice/Home Care(v001) : Manuel Kohler [phone] Patient Left Unit Via : Wheelchair Patient Accompanied Off Unit with : Responsible adult DC Instructions Provided & Signed by Pt : Yes Patient Understands D/C Instructions : Yes Patient Instructions Discharge Signed : Yes Did Pt have Specialty Bed or Wound Vac : No Henna Calero RN - 01/17/2024 17:35 EST * Cintia Arizmendi MD: MODIFY Cintia Arizmendi MD: MODIFY, PERFORM Breanna Causey MD: PERFORM, MODIFY Breanna Causey MD: MODIFY, MODIFY Breanna Causey MD: MODIFY Event Display: Discharge/Transfer Note Hospital Authored Date: [id number] Patient: ??RAND WILKERSON ? Age:??43 Years?Sex:??Male?:??1980?? 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) Bipolar disorder (F31.9) Alcohol use disorder (F10.90) Polysubstance abuse (F19.10) COPD without exacerbation (J44.9) High anion gap metabolic acidosis (E87.29) Anemia (D64.9) Thrombocytopenia (D69.6) _ Discharge Medications Albuterol/Ipratropium (Combivent Respimat 20 mcg-100 mcg/inh inhalation aerosol)?1?puff(s)?Inhalation?4 times a day?Wheezing/Shortness of Breath Clobazam (cloBAZam 20 mg oral tablet)?1?tab(s)?20?Milligram?By Mouth?2 times a day?for 30?Days HydrOXYzine (hydrOXYzine hydrochloride 25 mg oral tablet)?1?tab(s)?25?Milligram?By Mouth?4 times a day?as needed?for anxiety Ibuprofen (Motrin Tablet)?600?Milligram?By Mouth?3 times a day with meals Lamotrigine (lamotrigine 100 mg oral tablet)?300?Milligram?By Mouth?2 times a day?for 30?Days levETIRAcetam (Keppra 1000 mg oral tablet)?1,500?Milligram?By Mouth?2 times a day?for 30?Days Melatonin (Melatonin 3 mg oral tablet)?TAKE 2 TABLETS BY MOUTH AT BEDTIME IF NEEDED FOR SLEEP Olanzapine (olanzapine 5 mg oral tablet)?5?Milligram?1?tablet?By Mouth?Daily at bedtime Sertraline (sertraline 50 mg oral tablet)?100?Milligram?By Mouth?Daily Thiamine (Vitamin B1 100 mg oral tablet)?100?Milligram?1?tablet?TAKE 1 TABLET BY MOUTH EVERY DAY?By Mouth?Daily Trazodone (traZODone 50 mg oral tablet)?50?Milligram?1?tablet?By Mouth?Daily at bedtime ? Inpatient Medications Medications (27) Active SCHEDULED: (12) Clobazam 10 mg Tablet (clobazam 10 mg oral tablet) ??20 mg, By Mouth, 2 times a day Enoxaparin 40 mg Inj (Enoxaparin Inj) ??40 mg 0.4 mL, Subcutaneous Injection, Daily Keppra 500mg Tablet (Keppra 500 mg oral tablet) ??1,500 mg, By Mouth, 2 times a day LamoTRIGINE 100 mg Tablet (lamotrigine 100 mg oral tablet) ??300 mg, By Mouth, 2 times a day NaCl 0.9% Flush 3ml (NaCL 0.9% Flush) ??3 mL, IV Push, Every 8 hours Nicotine 21 mg / 24 hour Patch (Nicotine Topical) ??21 mg, Topically, Daily Olanzapine 5 mg Tablet (olanzapine 5 mg oral tablet) ??5 mg, By Mouth, Daily at bedtime Remove Patch (Remove ??Patch) ??1 each, Topically, Daily Remove Patch (Remove ??Patch) ??1 each, Topically, Daily Sertraline 50 mg Tablet (sertraline 50 mg oral tablet) ??100 mg, By Mouth, Daily Thiamine 100 mg Tablet (Vitamin B1 100 mg oral tablet) ??100 mg, By Mouth, Daily Trazodone 50 mg Tablet (traZODone 50 mg oral tablet) ??50 mg, By Mouth, Daily at bedtime CONTINUOUS: (0) PRN: (15) Acetaminophen 325 mg Tablet (Acetaminophen Tablet) ??650 mg, By Mouth, Every 4 hours Albuterol/Ipratropium Inhalation Alana 3mL (Duoneb Inhalation Solution) ??1 vials, BAND Nebulizer, Every 4 hours Dextromethorphan-Guaifenesin 20 mg-200 mg/10 mL Liqu UD (Robitussin DM Liquid) ??10 mL, By Mouth, Every 4 hours Docusate Sodium 100 mg Capsule (Docusate Sodium Capsule) ??100 mg 1 capsule, By Mouth, 2 times a day HydrOXYzine HCL 10mg Tablet (hydrOXYzine hydrochloride 10 mg oral tablet) ??25 mg, By Mouth, 4 times a day Ibuprofen 600 mg Tablet (Motrin Tablet) ??600 mg, By Mouth, 3 times a day with meals Lorazepam 2 mg Inj Syringe (Ativan Inj) ??1 mg, IV Push Slowly, Every 2 hours Lorazepam 2 mg Inj Syringe (Ativan Inj) ??2 mg, IV Push Slowly, Every 2 hours Lorazepam 2 mg Inj Syringe (Ativan Inj) ??2 mg, IV Push Slowly, Every hour Lorazepam 2 mg Inj Syringe (Ativan Inj) ??2 mg, IV Push Slowly, Every 5 minutes Melatonin 3 mg Tablet (Melatonin Tablet) ??6 mg, By Mouth, Daily at bedtime NaCl 0.9% Flush 3ml (NaCL 0.9% Flush) ??3 mL, IV Push, Every 8 hours Polyethylene Glycol 17 Gm Powder (MiraLax Powder) ??17 Gm 1 pack/packet, By Mouth, Daily Senna Tablet ??8.6 mg 1 tablet, By Mouth, 2 times a day Simethicone 80 mg Chewable Tablet (Simethicone Tablet) ??80 mg, Chew, 3 times a day ? Vaccinations and Immunoprophylaxis tetanus/diphtheria/pertussis, acel(Tdap): 0.5 Unknown (07/13/20 08:00:00) tetanus/diphtheria/pertussis, acel(Tdap): 0.5 Unknown (12/23/09 08:00:00) ?? Medications Started None Medications Discontinued None Doses Changed None Allergies Allergies ?(Active and Proposed Allergies Only) cyclobenzaprine? (Severity: Unknown severity, Onset: Unknown) erythromycin? (Severity: Unknown severity, Onset: Unknown) ?Reactions: rash ? PCP Follow-Up/Heads-Up -Check Clobazam, Keppra and Lamotrigine levels in 1 week to determine his baseline levels which canhelp determine his compliance with meds. -Stress need for compliance -Advised to reduce alcohol intake as possible contributing etiology for seizure, consider outpatient AUD treatment -F/U with seizure clinic. Already has appt made at [facility] neurology with epilepsy specialist at the end of the month (previously followed by Elio who had retired). -Follow-up CBC as outpatient for platelet count -Consider PFT tests for ?COPD diagnosis Future Appointments Wednesday 3:00 PM EST ?? With: Camila Ramey NP Where: [facility] [address] [facility] 3rd Floor, [address] [place] [phone]- Status: Pending Wednesday 8:30 AM EST ?? With: Ursula Daugherty Where: [facility] [address] [place] [id number]- Status: Pending Hospital Course Mr Mullen is a 43 years old patient with a past medical history of seizures secondary to juvenilemyoclonic epilepsy, bipolar disorder, substance use disorder including alcohol, COPD (per chart review, I do not see any PFTs in [facility]), who was brought to the ED on 01/14 due to multiple seizures with multiple falls, patient had another witnessed seizure in our ED. CT head and cervical spine without any acute abnormality. CXR without any acute abnormality. Lab work only showing high anion gap metabolic acidosis that could have been in the setting of lactic acidosis for seizure, ethanol level not detected. Labs generally unremarkable except for anemia hemoglobin 13, thrombocytopenia to 140s, electrolyte and LFTs normal. U tox positive for benzos which patient received in ED. No signs of infection. Keppra level was 73.7, per neurology consultation ideally this Keppra level should have been higher if patient was therapeutic on outpatient Keppra as he also received a Keppra load while in ED. As a result, suspicion is of medication noncompliance induced breakthrough seizures. At the same time, patient endorses seizure history more so on weekends which coincides with episodes of drinking therefore etiology can also be alcohol induced. By 01/16, patient is hemodynamically stable with no further seizure episodes. He is recommended to continue his antiepileptic regimen as outlined by neurology. He is to continue his other prior home medicines. He will follow-up with [facility] neurology atthe end of this month. ?? Seizures (R56.9) Juvenile myoclonic epilepsy (G40.B09) -Continue home clonazepam 20 mg twice daily, lamotrigine 300 mg twice a day, and Keppra 1500 mg twice a day -Should avoid alcohol drinking due to correlation with seizure activity, follow- up with PCP to discuss alcohol use disorder treatment -Check Clobazam, Keppra and Lamotrigine levels in 1 week to determine his baseline levels which canhelp determine his compliance with meds. -Stress need for compliance -If pt returns to ED with more sz in future, make sure AED levels are drawn BEFORE administration of any AEDs in the ED -F/U with sz clinic. Already has appt made at [facility] neurology with epilepsy specialist at the end of the month (previously followed by Elio who had retired). ?? High anion gap metabolic acidosis (E87.29): Likely in the setting of lactic acidosis after having seizures. Resolved. Anemia (D64.9), Thrombocytopenia (D69.6): Seems to have a hemoglobin level of around 13.5. Also hasa platelet count of 144. He is definitely not having any bleeding and no evidence of infections. Looks like his hemoglobin has fluctuated in the past around 12???3. Plt count has also been 120-140 inthe past year. Iron panel normal. Continue to monitor Plt count as outpatient. ?? Chronic medical conditions: Bipolar disorder (F31.9):??C/w Trazodone 50 mg daily, sertraline 100 mg daily, Zyprexa 5 mg daily at bedtime Alcohol use disorder (F10.90):??[facility] protocol inpatient, consider AUD treatment as outpatient especially with correlation to seizure activity. Polysubstance abuse (F19.10):??Alcohol/Nicotine use COPD without exacerbation (J44.9):??Resume home Combivent inhaler, no PFTs on file, consider testing for this as outpatient. ? Objective ? Vital Signs?? Temperature: 97.9 DegF (01/17/24 12:00:00) Temperature Route: Oral (01/17/24 12:00:00) Pulse Rate: 61 bpm (01/17/24 12:00:00) Respiratory Rate: 18 br/min (01/17/24 12:00:00) Systolic Blood Pressure: 135 mm Hg (01/17/24 12:00:00) Diastolic Blood Pressure: 66 mm Hg (01/17/24 12:00:00) Blood pressure sites: Arm, right (01/17/24 12:00:00) Pulse Pressure: 57 mm Hg (01/17/24 03:59:00) Oxygen Saturation: 99 % (01/17/24 12:00:00) Mode of Delivery (Oxygen): Room air (01/17/24 12:00:00) Early Warning Score: 5 (01/17/24 14:11:05) ? . Physical Exam General: Resting in bed, comfortable appearing, NAD HEENT: Normocephalic, atraumatic. Mucous membranes moist.? Cardiac: Regular rate and rhythm. No murmurs, rubs or gallops auscultated. Normal S1 and S2 heard.? Respiratory: Lung sounds clear to auscultation? Abdomen: Soft, non-tender, non-distended?? Extremities: Upper and lower extremities are atraumatic without tenderness or deformity. No swelling or erythema. Full range of motion is noted at all joints. Skin: Skin is warm and dry without rashes, lesions or bleeding phenomenon. Neurological: AAOx3. No focal deficits. Psychiatric: Normal mood and affect.?? Consultants Neurology Pending Results Add On Lab Order ordered on 01/16/2024 Add On Lab Order ordered on 01/17/2024 Lamotrigine Level ordered on 01/15/2024 Lamotrigine Level ordered on 01/15/2024 Patient Education Titles [employer] Patient Education - Recurrent Seizure (Adult)?? [employer] Patient Education - Safety During a Seizure?? [employer] Patient Education - Alcohol Use Disorder (AUD): Resources for Family and Friends?? [employer] Patient Education - Alcohol Use Disorder: Myths and Facts?? Follow-Up Appointments Added Follow Up ?Time Frame ?Comments Name Matthieu AVILA?Within one week Patient Instructions You were seen in hospital for breakthrough seizures. No obvious etiology was found but it is possible that you have missed a dose at times as your Keppra levels??were on the lower-end.? You should continue??clonazepam 20 mg twice daily,??lamotrigine 300 mg??twice a day,??and Keppra 1500 mg twice a day. Your PCP will check levels of these medications in 1 week to establish a new baseline for the future. You will have a follow-up with [facility] for your seizures. ?? Continue your prior bipolar disorder medications. ?? It is possible that alcohol use can elicit??your seizure thus you should try your best to cut-down on alcohol intake. You should speak with your PCP for further treatment to assist with alcohol use disorder. ?? For any further healthcare concerns or worsening symptoms please visit the ER.?? Home Health Face to Face *Denotes mandatory kramer ?? *I certify that this patient is under my care and that I or an allowed non- physician working with me had a face to face encounter with the patient on this date:??01/17/2024 14:29 ?? 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 *Select the indications for the discipline/s that are being arranged for this patient. Nursing (select all that apply): [_] None [x_] Medication management (reconciliation, teaching)?? [x_] Chronic disease management?? [_] Wound care and [...] *Homebound due to (select all that apply): [x_] Inability to leave home without assistance/supervision [_] Inability to ambulate without assistance [_] Pain [_] Decreased strength and endurance [_] Unsteady gait [_] Severe SOB and fatigue [_] Impaired transfers [_] Inability to negotiate stairs [_] Limited weight bearing [_] Mental status change? *Physician Signature:??Breanna Causey ?? *By signing this, I certify that I have personally evaluated the patient and agree with the findings and recommendations as documented above. ? Results Discharge Labs BLOOD COUNT & DIFF WBC 4.6 k/mm3 ()?? 01/17/2024 00:10 RBC 4.25 m/mm3 (Low)?? 01/17/2024 00:10 Hgb 12.9 Gm/dL (Low)?? 01/17/2024 00:10 Hct 38.2 % (Low)?? 01/17/2024 00:10 MCV 89.9 femtoliters ()?? 01/17/2024 00:10 MCH 30.4 pg ()?? 01/17/2024 00:10 MCHC 33.8 Gm/dL ()?? 01/17/2024 00:10 Platelet Count 142 k/mm3 (Low)?? 01/17/2024 00:10 RDW-SD 44.0 femtoliters ()?? 01/17/2024 00:10 MPV 11.7 femtoliters ()?? 01/17/2024 00:10 Nucleated RBC (Automated) 0.0 #/100 WBC'S ()?? 01/17/2024 00:10 Abs. NRBC 0.0 k/mm3 ()?? 01/17/2024 00:10 Abs. Neut 5.1 k/mm3 ()?? 01/15/2024 15:08 Abs. Lymph 1.1 k/mm3 ()?? 01/15/2024 15:08 Abs. [place] 0.4 k/mm3 ()?? 01/15/2024 15:08 Abs. Eo 0.1 k/mm3 ()?? 01/15/2024 15:08 Abs. Baso 0.0 k/mm3 ()?? 01/15/2024 15:08 Neut % 76.0 % ()?? 01/15/2024 15:08 Lymph % 16.3 % ()?? 01/15/2024 15:08 [place] % 6.2 % ()?? 01/15/2024 15:08 Eos % 0.8 % ()?? 01/15/2024 15:08 Baso % 0.5 % ()?? 01/15/2024 15:08 Peripheral Blood Smear Review Interp. Reviewed by pathologist. ()?? 01/17/2024 00:10 Imm Gran 0.2 % ()?? 01/15/2024 15:08 Abs. Imm Gran 0.0 k/mm3 ()?? 01/15/2024 15:08 ? CHEM GENERAL Sodium 140 mmol/L ()?? 01/16/2024 12:05 Potassium 3.9 mmol/L ()?? 01/16/2024 12:05 Chloride 104 mmol/L ()?? 01/16/2024 12:05 Bicarbonate Level 24 mmol/L ()?? 01/16/2024 12:05 Anion Gap 12 ()?? 01/16/2024 12:05 Glucose Level 82 mg/dL ()?? 01/16/2024 12:05 Glucose, POC 78 mg/dL ()?? 01/15/2024 13:13 BUN 12 mg/dL ()?? 01/16/2024 12:05 Creatinine-Blood 0.89 mg/dL ()?? 01/16/2024 12:05 Estimated GFR Creatinine 110 ML/MIN/1.73 M2 ()?? 01/16/2024 12:05 Calcium 8.8 mg/dL ()?? 01/16/2024 12:05 Protein, Total 6.7 Gm/dL ()?? 01/15/2024 14:06 Albumin 3.9 Gm/dL ()?? 01/15/2024 14:06 AG Ratio 1.4 ()?? 01/15/2024 14:06 Alkaline Phosphatase 75 units/L ()?? 01/15/2024 14:06 AST (SGOT) 21 units/L ()?? 01/15/2024 14:06 ALT (SGPT) 12 units/L ()?? 01/15/2024 14:06 Bilirubin, Total 0.3 mg/dL ()?? 01/15/2024 14:06 Vitamin B12 Level 415 pg/mL ()?? 01/15/2024 14:06 Iron Level 101 mcg/dL ()?? 01/15/2024 14:06 Iron Binding Capacity, Unsaturated 152 mcg/dL ()?? 01/15/2024 14:06 Iron Binding Capacity, Estimated Total 253 mcg/dL ()?? 01/15/2024 14:06 % Iron Saturation 40 % ()?? 01/15/2024 14:06 Ferritin Level 85 ng/mL ()?? 01/15/2024 14:06 ?? HEME OTHER Hold Lavender Top SPECIMEN DISCARDED AFTER 24 HOURS. ()?? 01/16/2024 12:05 ? MISC. CHEMISTRY Hold Green Top SPECIMEN DISCARDED AFTER 1 WEEK ()?? 01/17/2024 00:10 ? TOXICOLOGY/TDM Ethanol, Serum or Plasma NONE DETECTED mg/dL ()?? 01/15/2024 14:06 Barbiturate Screen, Urine NONE DETECTED ()?? 01/16/2024 20:15 Cannabinoid Screen, Urine NONE DETECTED ()?? 01/16/2024 20:15 Cocaine Metabolite Screen, Urine NONE DETECTED ()?? 01/16/2024 20:15 Methadone Screen, Urine NONE DETECTED ()?? 01/16/2024 20:15 Benzodiazepine Screen, Urine POSITIVE (Abnormal)?? 01/16/2024 20:15 Amphetamine Screen, Urine NONE DETECTED ()?? 01/16/2024 20:15 Opiate Screen, Urine NONE DETECTED ()?? 01/16/2024 20:15 Oxycodone Screen, Urine NONE DETECTED ()?? 01/16/2024 20:15 Levetiracetam Level 73.70 mg/L ()?? 01/15/2024 14:06 Buprenorphine, Urine Random NONE DETECTED ()?? 01/16/2024 20:15 Fentanyl Screen, Urine Result NONE DETECTED ()?? 01/16/2024 20:15 ?? UA/URINALYSIS Appear/Color, Urine LIGHT YELLOW ()?? 01/16/2024 20:15 Specific Dodge, Urine 1.017 ()?? 01/16/2024 20:15 pH, Urine 6.5 ()?? 01/16/2024 20:15 Albumin, Urine NEGATIVE ()?? 01/16/2024 20:15 Glucose, Urine NEGATIVE ()?? 01/16/2024 20:15 Ketones, Urine NEGATIVE ()?? 01/16/2024 20:15 Bilirubin, Urine NEGATIVE ()?? 01/16/2024 20:15 Hemoglobin, Urine NEGATIVE ()?? 01/16/2024 20:15 Nitrite, Urine NEGATIVE ()?? 01/16/2024 20:15 Leukocyte, Urine NEGATIVE ()?? 01/16/2024 20:15 Urobilinogen 2 mg/dL (Abnormal)?? 01/16/2024 20:15 WBC's, Urine <1 /HPF ()?? 01/16/2024 20:15 RBC's, Urine 2 /HPF ()?? 01/16/2024 20:15 Squamous Epith <1 /HPF ()?? 01/16/2024 20:15 Hold Urine Culture Testing available 48 hours from time of collection. ()?? 01/16/2024 20:15 ? 30 minutes spent on discharge * Cintia Arizmendi MD: PERFORM Event Display: Discharge/Transfer Note Hospital Authored Date: I have seen and evaluated the patient on the day of service. I have discussed the case and its management with medical policy specialist and I agree with assessment and plan as documented in resident's note * Parent Mckenna BROWN: PERFORM, SIGN, VERIFY Event Display: Case Management Discharge Plan Authored Date: Patient: RAND WILKERSON Age: 43 years Sex: Male : 1980 Associated Diagnoses: None Author: Mckenna Rasmussen RN Discharge Plan Case Management Discharge Plan : Case Management Discharge Plan Data 01/17/2024 15:17 EST Discharge Level of Care at Discharge Homehealth/VNA Discharge VNA/Hospice/Home Care [facility] [phone] Name of Agency #1 [facility] Service Categories #1 Usp * Henna Calero RN: PERFORM Event Display: Patient Education/Instruction Authored Date: Inpatient Adult Discharge Instructions. [address] [address] Name: RAND WILKERSON : 1980?? Visit: 01/15/2024 15:21?? Current Date: 01/17/2024 15:52 ?? Account: [id number]?? Inpatient Adult Discharge Instructions We would like [...] and their families. Surveys are administered by [employer] ?? If further treatment with your primary care physician or another doctor is recommended, it is important for you to keep the appointment. Call your primary care physician or return to the Emergency Department immediately if your condition worsens, fails to improve, or new symptoms develop. If you need to find a doctor, you can call [facility] Overblog Link for a referral at [phone] or toll free at [phone]) or log in to [email or web address].. ?? [facility], in keeping with [facility] guidance, no longer requires face masks for [...] a health care parvin of your choosing. [employer] is a website that allows you to securely view your medical information including your hospital discharge summary, office visit summaries, medications and follow-up visits. You can also request appointments, renew medications, and request access to your medical information using a health care parvin of your choosing, or just ask a question. You can enroll at [email or web address] or register during your next office visit. You have been discharged from [facility], Patient Care Unit: D5A??. If you have any questions regarding these instructions, including results of studies pending, afteryou leave, please call us and we will be happy to assist you 28/09. [facility] Your Care Team Attending Physician Cintia Arizmendi MD?? Consulting Providers Cintia Arizmendi MD?? Discharging Providers Padilla AVILA, Breanna Luna Reason for Your Visit EMS calledby fam. Multiple szs today with multiple falls. Onhands and knees in bathroom EMS arrivalnot answering questions. Now more alert, GCS 15. Unknown head strike. c/o neck pain, ccollar applied. Takes lamictal and keppra approp. #18 LFA?? Your Diagnosis Seizures Juvenile myoclonic epilepsy Bipolar disorder Alcohol use disorder Polysubstance abuse COPD without exacerbation Anemia High anion gap metabolic acidosis Thrombocytopenia Tests Performed Below is a partial list of the tests performed during your hospitalization. You may have had other tests and procedures not included in this list. Please discuss all test results with your provider. Alcohol Level Amphetamine Urine Screen Barbiturate Urine Screen Basic Metabolic Panel Benzodiazepine Urine Screen Buprenorphine Urine Cannabinoid Urine Screen CBC CBC w/ Differential Cocaine Urine Screen Comprehensive Metabolic Panel Fentanyl Screen, Urine FERRITIN GLUCOSE POC HOLD GREEN TUBE HOLD LAVENDER TUBE HOLD URINE CULTURE IRON & TIBC Levetiracetam Level Methadone Urine Opiate Screen Urine Oxycodone Screen Urine PERIPHERAL BLOOD SMEAR REVIEW Urinalysis Complete VITAMIN B12 CT Cervical Spine W/O Contrast CT Head/Brain W/O Contrast XR Chest 2 Views Frontal and Lat Add On Lab Order (Lab Add On Order)?? Amphetamine Urine Screen?? Barbiturate Urine Screen?? Basic Metabolic Panel?? Benzodiazepine Urine Screen?? Buprenorphine Urine?? CBC?? CBC w/ Differential?? CT Cervical Spine W/O Contrast?? CT Head/Brain W/O Contrast?? Cannabinoid Urine Screen?? Cocaine Urine Screen?? Complete Urinalysis (Urinalysis Complete)?? Comprehensive Metabolic Panel?? Ethanol Level (Alcohol Level)?? Fentanyl Screen, Urine?? Ferritin?? Glucose POC?? Hold Green Top Tube (HOLD GREEN TUBE)?? Hold Lavender Top Tube (HOLD LAVENDER TUBE)?? Hold Urine Culture?? Iron + Iron Binding Capacity (IRON & TIBC)?? Lamotrigine Level?? Levetiracetam Level?? Methadone Urine?? Opiate Screen Urine?? Oxycodone Screen Urine?? Peripheral Blood Smear Review?? Vitamin B12 Level (VITAMIN B12)?? Chest 2 Views Frontal and Lat (XR Chest 2 Views Frontal and Lat)?? Primary Care Provider Name Matthieu AVILA? Advance Directive Health Care Proxy on File Yes - Health Care Proxy Yes - MOLST Discharge Vitals Temperature: 97.9 DegF Pulse Rate: 61 bpm Respiratory Rate: 18 br/min Systolic Blood Pressure: 135 mm Hg Diastolic Blood Pressure: 66 mm Hg Oxygen Saturation: 99 % Studies Pending All studies ordered during this hospital stay have been completed unless listed below. Please discuss all pending results with your provider listed above in these instructions. ?? Add On Lab Order (Lab Add On Order)?? Lamotrigine Level?? What to do next Instructions From Your Doctor You were seen in hospital for breakthrough seizures. No obvious etiology was found but it is possible that you have missed a dose at times as your Keppra levels??were on the lower-end.? You should continue??clonazepam 20 mg twice daily,??lamotrigine 300 mg??twice a day,??and Keppra 1500 mg twice a day. Your PCP will check levels of these medications in 1 week to establish a new baseline for the future. You will have a follow-up with [facility] for your seizures. ?? Continue your prior bipolar disorder medications. ?? It is possible that alcohol use can elicit??your seizure thus you should try your best to cut-down on alcohol intake. You should speak with your PCP for further treatment to assist with alcohol use disorder. ?? For any further healthcare concerns or worsening symptoms please visit the ER.? Orders? 01/17/24 15:09:00 EST?? Prescriptions??, ??01/17/24 15:09:00 EST?? Scheduled Follow-Up Appointments Wednesday 3:00 PM EST ?? With: Camila Ramey NP Where: [facility] [address] [facility] 3rd Floor, [address] [place] [id number]- Status: Pending Wednesday 8:30 AM EST ?? With: Ursula Daugherty Where: [facility] [address] [place] [address]- Status: Pending You Need to Schedule the Following Appointments Follow Up with??Name Matthieu AVILA When:??Within Within one week Where: ?? Discharge Medications RAND WILKERSON :1980 Visit Date:01/15/2024 Medications: Please continue your medications until treatment is completed or stopped by your provider. Medications not listed below should be discontinued. Discuss any questions related to medications with your provider. What How Much When Instructions Next Dose Changed Lamotrigine (lamotrigine 100 mg oral tablet) 300 Milligram Oral Twice a day Duration: 30 Days Pickup at [place] [address] PM Unchanged Albuterol/ Ipratropium (Combivent Respimat 20 mcg-100 mcg/ inh inhalation aerosol) 1 puff(s) Inhalation 4 times a day as needed for Wheezing/Shortness of Breath as directed Unchanged Clobazam (cloBAZam 20 mg oral tablet) 1 tab(s) Oral Twice a day Duration: 30 Days Pickup at [place] [address] PM Unchanged HydrOXYzine (hydrOXYzine hydrochloride 25 mg oral tablet) 1 tab(s) Oral 4 times a day as needed for for anxiety as directed Unchanged Ibuprofen (Motrin Tablet) 600 Milligram Oral 3 times a day with meals as directed Unchanged levETIRAcetam (Keppra 1000 mg oral tablet) 1,500 Milligram Oral Twice a day Duration: 30 Days Pickup at [place] [address] PM Unchanged Melatonin (Melatonin 3 mg oral tablet) TAKE 2 TABLETS BY MOUTH AT BEDTIME IF NEEDED FOR SLEEP ?? as directed Unchanged Olanzapine (olanzapine 5 mg oral tablet) 1 tab(s) Oral Daily at Bedtime 01-16, 9 PM Unchanged Sertraline (sertraline 50 mg oral tablet) 100 Milligram Oral Daily 11-12, 9 AM Unchanged Thiamine (Vitamin B1 100 mg oral tablet) 1 tab(s) Oral Daily 11, 9 AM Unchanged Trazodone (traZODone 50 mg oral tablet) 1 tab(s) Oral Daily at Bedtime 11-, 9 PM Pharmacy Information [facility] 3: [address] [place], [place] [phone] Prescription Given During Visit Clobazam (cloBAZam 20 mg oral tablet) - 1 tablet = 20 mg, By Mouth, 2 times a day, # 60 tablet, 0 Refills, [facility] [address], [address] [place] [phone]?? Lamotrigine (lamotrigine 100 mg oral tablet) - 300 mg, By Mouth, 2 times a day, # 60 tablet, 0 Refills, [facility], [address] [place] [phone]?? levETIRAcetam (Keppra 1000 mg oral tablet) - 1,500 mg, By Mouth, 2 times a day, # 90 tablet, 0 Refills, [facility], [address] [place] [phone]?? Laboratory Results Below is a partial list of the most recent Laboratory test results done prior to this discharge. You may have had other tests and procedures not included in this list. Please discuss all test resultswith your provider. Alcohol Level (01/15/2024) ???Ethanol, Serum or Plasma - NONE DETECTED Amphetamine Urine Screen (01/16/2024) ???Amphetamine Screen, Urine - NONE DETECTED Barbiturate Urine Screen (01/16/2024) ???Barbiturate Screen, Urine - NONE DETECTED Basic Metabolic Panel (01/16/2024) ???Sodium - 140 mmol/L???Potassium - 3.9 mmol/L???Chloride - 104 mmol/L???Bicarbonate Level - 24 mmol/L???Anion Gap - 12???Glucose Level - 82 mg/dL???BUN - 12 mg/dL???Creatinine-Blood - 0.89 mg/dL???Estimated GFR Creatinine - 110 ML/MIN/1.73 M2???Calcium - 8.8 mg/dL Benzodiazepine Urine Screen (01/16/2024) ???Benzodiazepine Screen, Urine - POSITIVE Buprenorphine Urine (01/16/2024) ???Buprenorphine, Urine Random - NONE DETECTED Cannabinoid Urine Screen (01/16/2024) ???Cannabinoid Screen, Urine - NONE DETECTED CBC (01/17/2024) ???WBC - 4.6 k/mm3???RBC - 4.25 m/mm3???Hgb - 12.9 Gm/dL???Hct - 38.2 %???MCV - 89.9 femtoliters???MCH - 30.4 pg???MCHC - 33.8 Gm/dL???Platelet Count - 142 k/mm3???RDW-SD - 44.0 femtoliters???MPV - 11.7 femtoliters???Nucleated RBC (Automated) - 0.0 #/100 WBC'S???Abs. NRBC - 0.0 k/mm3 CBC w/ Differential (01/15/2024) ???WBC - 6.6 k/mm3???RBC - 4.52 m/mm3???Hgb - 13.6 Gm/dL???Hct - 40.5 %???MCV - 89.6 femtoliters???MCH - 30.1 pg???MCHC - 33.6 Gm/dL???Platelet Count - 144 k/mm3???RDW-SD - 43.8 femtoliters???MPV - 11.1 femtoliters???Nucleated RBC (Automated) - 0.0 #/100 WBC'S???Abs. NRBC - 0.0 k/mm3???Abs. Neut - 5.1 k/mm3???Abs. Lymph - 1.1 k/mm3???Abs. Haskell - 0.4 k/mm3???Abs. Eo - 0.1 k/mm3???Abs. Baso - 0.0 k/mm3???Neut % - 76.0 %???Lymph % - 16.3 %???Haskell % - 6.2 %???Eos % - 0.8 %???Baso % - 0.5 %???Imm Gran - 0.2 %???Abs. Imm Gran - 0.0 k/mm3 Cocaine Urine Screen (01/16/2024) ???Cocaine Metabolite Screen, Urine - NONE DETECTED Comprehensive Metabolic Panel (01/15/2024) ???Sodium - 144 mmol/L???Potassium - 4.3 mmol/L???Chloride - 108 mmol/L???Bicarbonate Level - 18 mmol/L???Anion Gap - 18???Glucose Level - 88 mg/dL???BUN - 12 mg/dL???Creatinine-Blood - 0.85 mg/dL???Estimated GFR Creatinine - 111 ML/MIN/1.73 M2???Calcium - 9.1 mg/dL???Protein, Total - 6.7 Gm/dL???Albumin - 3.9 Gm/dL???AG Ratio - 1.4???Alkaline Phosphatase - 75 units/L???AST (SGOT) - 21 units/L???ALT (SGPT) - 12 units/L???Bilirubin, Total - 0.3 mg/dL Fentanyl Screen, Urine (01/16/2024) ???Fentanyl Screen, Urine Result - NONE DETECTED FERRITIN (01/15/2024) ???Ferritin Level - 85 ng/mL GLUCOSE POC (01/15/2024) ???Glucose, POC - 78 mg/dL HOLD GREEN TUBE (01/17/2024) ???Hold Green Top - SPECIMEN DISCARDED AFTER 1 WEEK HOLD LAVENDER TUBE (01/16/2024) ???Hold Lavender Top - SPECIMEN DISCARDED AFTER 24 HOURS. HOLD URINE CULTURE (01/16/2024) ???Hold Urine Culture - Testing available 48 hours from time of collection. IRON & TIBC (01/15/2024) ???Iron Level - 101 mcg/dL???Iron Binding Capacity, Unsaturated - 152 mcg/dL???Iron Binding Capacity, Estimated Total - 253 mcg/dL???% Iron Saturation - 40 % Levetiracetam Level (01/15/2024) ???Levetiracetam Level - 73.70 mg/L Methadone Urine (01/16/2024) ???Methadone Screen, Urine - NONE DETECTED Opiate Screen Urine (01/16/2024) ???Opiate Screen, Urine - NONE DETECTED Oxycodone Screen Urine (01/16/2024) ???Oxycodone Screen, Urine - NONE DETECTED PERIPHERAL BLOOD SMEAR REVIEW (01/17/2024) ???Peripheral Blood Smear Review Interp. - Reviewed by pathologist. Urinalysis Complete (01/16/2024) ???Appear/Color, Urine - LIGHT YELLOW???Specific Dodge, Urine - 1.017???pH, Urine - 6.5???Albumin, Urine - NEGATIVE???Glucose, Urine - NEGATIVE???Ketones, Urine - NEGATIVE???Bilirubin, Urine - NEGATIVE???Hemoglobin, Urine - NEGATIVE???Nitrite, Urine - NEGATIVE???Leukocyte, Urine - NEGATIVE???Urobi linogen - 2 mg/dL? ?WBC's, Urine - <1 /HPF? ?RBC's, Urine - 2 /HPF? ?Squamous Epith - <1 /HPF VITAMIN B12 (01/15/2024) ???Vitamin B12 Level - 415 pg/mL You will be contacted within 72 hours with your results. Allergies (NKA means No Known Allergies) cyclobenzaprine erythromycin??(rash) Problems Active Problems??(8) Alcohol use disorder?? Bipolar disorder?? COPD without exacerbation?? COVID-19?? 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 Polysubstance abuse?? Tobacco user?? Education Materials Below is the list of Educational Leaflet Providered with your Discharge Instructions. [employer] Patient Education - Recurrent Seizure (Adult)?? [employer] Patient Education - Safety During a Seizure?? [employer] Patient Education - Alcohol Use Disorder (AUD): Resources for Family and Friends?? [employer] Patient Education - Alcohol Use Disorder: Myths and Facts?? Valuables and Belongings I fully understand and agree that [facility] accepts no responsibility for all my personal [...] patient Date for Pt to Sign Valuables/Belongings: 01/15/24 16:08:00 ?? Other Discharge Information ? Case Management Discharge Plan?? Discharge Plan?? Discharge Agency Information?? Discharge Level of Care at Discharge: Homehealth/VNA Name of Agency #1: [facility] Discharge Rx Program: Discharge Prescription Program Service Categories #1: Usp Discharge VNA/Hospice/Home Care: [facility] [phone] ? Pulmonary Rehab Status?? Pulmonary Rehab Discharge [...] are strongly encouraged to quit. Please call [facility] Overblog Link at [phone] or [phone] ([phone]) or log in to [email or web address] for referrals to smoking cessation programs. ?? 637 Suicide & Crisis Lifeline is available 28/09 if you or someone you know needs to find a reason to keep living. By calling 382 you'll be connected to a skilled, trained counselor at a crisis center in your area. INPATIENT DISCHARGE INSTRUCTIONS SIGNATURE PAGE RAND WILKERSON [facility]:[id number] Location:[facility] Registration Date and Time:01/15/2024 15:21 EST Primary Care Physician: Matthieu Buenrostro MD, Attending Physician: Cintia Arizmendi MD, I RAND WILKERSON, have received the above patient education materials/instructions and have verbalized understanding. If ambulance or transport services are being used I further acknowledge being given a choice of service. ?? If you need to contact me, please call me at this number: . Patient/Tube Splicer Name: Patient/Tube Splicer Signature: Relationship to Patient: Witness Name/Signature: Date: * Padilla AVILA, Breanna Luna: PERFORM Event Display: Patient Education Leaflets Authored Date: [id number] Recurrent Seizure (Adult) ?? 568560cg Recurrent Seizure (Adult) You have had another [...] gets worse? Last Reviewed Date: 2021 ?? 4604-2264 [employer]. All rights reserved. This information is not intended as a substitute for professional medical care. Always follow your healthcare professional's instructions. ?? * Padilla AVILA, Breanna Luna: PERFORM Event Display: Patient Education Leaflets Authored Date: [id number] Safety During a Seizure ?? 17104 Safety During a Seizure Safety during a seizure Let family and friends know what to expect and how to react when you??have a seizure. This helps keep them calm and you safe. All seizures should be treated with care. But seizures that cause you to lose consciousness (tonic-clonic seizures) need more attention. Think about wearing a medical alert bracelet in case you are not around family members. This can alert other people to your condition and provide any special instructions. Here are some tips for loved ones. ?? What to know Seizures typically last less than 3 minutes. But it will feel like it's longer.??People recover safely from most seizures. During a tonic-clonic seizure, the person may appear to stop breathing or turn slightly blue. This may be scary for you, but try to stay calm. Afterward, the person may be tired, confused, and achy. They may need to sleep for several hours to fully recover. ?? What to do During any seizure, stay with the person??until it's over. Note the time when the seizure starts and ends.??Don???t try to stop the seizure. During a tonic- clonic seizure, also do the following: ??? Move hard or sharp objects out of the way. ??? Lay the person on a flat surface and turn them on their side. ??? Place a flat, soft object under their head. ??? Don???t try to restrain the person. Both of you could get hurt. ??? Don???t put anything in the person???s mouth. The person can???t swallow their tongue, and you risk breaking their teeth or being bitten. ??? Don???t give the person medicines during a seizure, unless you???ve been trained by a healthcare provider. ??? Speak quietlyto the person as they recover. There is no need to call 911 if the person has a well-known cause of the seizures (such as epilepsy) and the seizure is very typical.??If you are not sure or the person's condition is not known, [id number]. ?? Call 911 Call 911 if any of these occur: ??? The seizure lasts longer than 5 minutes ??? The person isn't conscious between 2 seizures ??? Several seizures happen in a row These things could mean the person has status epilepticus. This is a medical emergency. Hospital treatment for this condition includes benzodiazepine medicines given by IV (intravenous). A form of this medicine (a rectal diazepam gel) may be prescribed for at-home use. Other causes of seizures and situations that need immediate medical care include:? The person has diabetes ??? The person has a brain??infection ??? The person has heat exhaustion ??? The personis ? Poisoning is known or suspected ??? The person has low blood sugar ??? A seizure happens after or during a high fever ??? A head injury immediately after or within a few days after the injury happened ??? Multiple seizures happen in a short period of time ??? The person stops breathing ??? A seizure that happens in water ??? The person hit their head during a seizure and becomesdifficult to wake up, is vomiting,??or complains of blurry vision ??? It's the first time a seizure happens ??? It's different??than the typical seizures??for that person ??? The person is difficult to arouse after the seizure ??? Alcohol or drug abuse? Alcohol or drug withdrawal ?? Last Reviewed Date: 2021 ?? The [employer]. All rights reserved. This information is not intended as a substitute for professional medical care. Always follow your healthcare professional's instructions. ?? * Padilla AVILA, Breanna Luna: PERFORM Event Display: Patient Education Leaflets Authored Date: [id number] Alcohol Use Disorder (AUD): Resources for Family and Friends ?? 15189 Alcohol Use Disorder (AUD): Resources for Family and Friends Are you affected by a loved one???s drinking? This sheet tells you about resources to help you cope. Nehemiah and Aristides Leonard-Anol[facility] is a self-help program. It is for adult family and friends of people with alcohol use disorder. Alcohol use disorder is commonly called alcoholism. Aristides has the same support for teenagers.These are no-cost support groups. The program is based on Alcoholics Anonymous (A.A.). To find a meeting, you can contact them at: ??? www.al-anolulu.alateen.org ??? 233.235.6297 ?? Adult Children of Alcoholics (STEPHANIA) This group helps people who grew up in a home with a parent or primary caregiver with alcoholism. It can help you get past harmful thoughts and behaviors that are the result of this. To find a meeting, you can contact them at: ??? www.AdultChildren.org ?? SMART Recovery Self-Management and Recovery (SMART) supports people and families with addiction. It does this withfree programs. The programs focus on dealing with addictive thoughts and behaviors. They also focuson living a balanced life. To find resources in your area, you can contact them at: ??? www.[employer].org ??? 176.497.4032 ?? Other resources There are many resources to help you cope. These include: ??? Professional care facilities and providers ??? Self-help groups? Referral services You can also get the help of a professional who works with families. You may learn about ways to help a family member who refuses treatment.?? To find these and other sources of help, try the website below: ??? National [place] [employer] Abuse and [employer]ism ?? Last Reviewed Date: 2021 ?? 8875-7176 [employer]. All rights reserved. This information is not intended as a substitute for professional medical care. Always follow your healthcare professional's instructions. ?? Patient Care team information Care Team Personnel Name: Gus Mcgraw RN Position: [facility] RN Member Role: Primary Care Nurse Name: Monika June RN Position: S RN Member Role: Primary Care Nurse Name: Patience Mcpherson RN Position: S RN Member Role: Primary Care Nurse Name: Therese Gross RN Position: S RN Member Role: Primary Care Nurse Name: Isadora Rice RN Position: S RN Member Role: Primary Care Nurse Name: Joseluis Thorpe RN Position: [facility] RN Member Role: Primary Care Nurse Name: Stas Erwin RN Position: [facility] RN Member Role: Primary Care Nurse Name: Valencia Fisher Position: [facility] RN Supv Member Role: Primary Care Nurse Name: Francesco Baca RN Position: [facility] RN Member Role: Primary Care Nurse Name: Angelika Gu RN Position: [facility] RN Member Role: Primary Care Nurse Name: Melanie Sainz RN Position: [facility] RN Member Role: Primary Care Nurse Name: Monika Singh RN Position: [facility] RN Member Role: Primary Care Nurse Name: Kavita Polo NP Position: [facility] Associate Professional Member Role: Primary Care Nurse Address: Address: [address] [place] [phone]- [place] Name: Beau Rhoades RN Position: [facility] RN Member Role: Primary Care Nurse Name: Matthieu Buenrostro MD Position: S Outreach Member Role: PCP Address: Address: [address] [place] [phone] [place] Name: Evaristo Huggins RN Position: [facility] RN Member Role: Primary Care Nurse Name: See Chavez RN Position: [facility] RN Member Role: Primary Care Nurse Name: Kalyan Cazares RN Position: [facility] RN Member Role: Primary Care Nurse Name: Myek Mcfadden RN Position: [facility] RN Member Role: Primary Care Nurse Name: Monika Marquez RN Position: [facility] RN Member Role: Primary Care Nurse Name: Elaine Reis RN Position: [facility] RN Member Role: Primary Care Nurse Name: Clay Quiñonez RN Position: [facility] RN Member Role: Primary Care Nurse Name: Veronika Dinero LPN Position: [facility] RN Member Role: Primary Care Nurse Name: Paul Ruiz RN Position: [facility] RN Member Role: Primary Care Nurse Care Team Related Persons Name: GIRON JEANNE Address: [address] [place] [address] Name: DOM DOOLEY Address: [address] [place] [address]
--- OUTSIDE RECORDS SUMMARY | 2024-02-03 15:00 | XMS_ITS | Continuity of Care Document ---
Author Organization [facility] ter Address [address] [place] [id number]- Care Team Providers Care Tooth Inspector Name Role Phone Name Matthieu AVILA Primary Care Physician [phone] [place] [facility] [place]/28/24 - 01/29/[address] [address]- Encounter Diagnosis Breakthrough seizure(Final) - 01/28/24 Discharge Disposition: A-D/C Home Attending Physician: Marcelle Whaley MD Admitting Physician: Senait Khan DO Referring Physician: Not on Staff, Referring MD Encounter Type: Disch IP Allergies, Adverse Reactions, Alerts Substance Criticality Severity Reaction Reaction Severity Status erythromycin rash Active cyclobenzaprine Acti ve Immunizations Given and Recorded Vaccine Date Status Refusal Reason tetanus/diphtheria/pertussis, acel(Tdap) 07/13/20 Recorded tetanus/diphtheria/pertussis, acel(Tdap) 12/23/09 Recorded Medications ciprofloxacin 0.3% ophthalmic solution 2 drops, Eye, Left, 2 times a day, for 10 days, # 5 mL, 0 Refills, Acute 02/08/24 11:56:00 AM EST, 01/29/24 11:56:00 AM EST, Ophth Solution, [facility]/pharmacy #[id number], Partial fill upon patient request if the prescription is for a schedule II opioid drug., 2 drops Eye, Left 2 times a day,x10 days, 178, cm,01/25/24 11:49:00 EST, Height, 116.7, kg, 01/20/24 13:29:00 EST, Dry Weight Start Date: 01/29/24 Stop Date: 02/08/24 Status: Ordered Quantity: 5.0 Unit: mL Repeat number: 1 clobazam 10 mg oral tablet = 10 mg, By Mouth, Daily in AM, # 30 tablet, 0 Refills, Maintenance, 01/25/24 11:09:00 AM EST, Tablet, [facility], Partial fill upon patient request if the prescription is for a schedule II opioid drug., 178, cm, 01/23/24 22:46:00 EST, Height, 116.7, kg, 01/20/24 13:29:00 EST, Dry Weight Start Date: 01/25/24 Status: Ordered Quantity: 30.0 Unit: tablet Repeat number: 1 clobazam 10 mg oral tablet = 15 mg, By Mouth, Daily at bedtime, # 50 tablet, 0 Refills, Maintenance, 01/25/24 11:09:00 AM EST,Tablet, [facility], Partial fill upon patient request if the prescription is for a schedule II opioid drug., 178, cm, 01/23/24 22:46:00 EST, Height, 116.7, kg, 01/20/24 13:29:00 EST, Dry Weight Start Date: 01/25/24 Status: Ordered Quantity: 50.0 Unit: tablet Repeat number: 1 Combivent Respimat 20 mcg-100 mcg/inh inhalation aerosol 1 puffs, Inhalation, 4 times a day, PRN Wheezing/Shortness of Breath, # 4 Gm, 0 Refills, Maintenance, 12/28/20 9:07:00 AM EDT, Aerosol, Partial fill upon patient request if the prescription is for a schedule II opioid drug. Start Date: 12/28/20 Status: Ordered Quantity: 4.0 Unit: g Repeat number: 1 hydrOXYzine hydrochloride 25 mg oral tablet 1 tablet = 25 mg, By Mouth, 4 times a day, PRN for anxiety, # 40 tablet, 0 Refills, Maintenance, 12/25/23 7:22:00 PM EDT, Tablet, Partial fill upon patient request if the prescription is for a schedule II opioid drug. Start Date: 12/25/23 Status: Ordered Quantity: 40.0 Unit: tablet Repeat number: 1 Keppra 1000 mg oral tablet = 1,500 mg, By Mouth, 2 times a day, # 90 tablet, 0 Refills, Maintenance, 01/17/24 2:22:00 PM EST, Tablet, [facility], Partial fill upon patient request if the prescription is for a schedule II opioid drug., 180, cm, 01/04/24 13:52:00 EDT, Height, 117.4, kg, 12/25/23 18:07:00 EDT, DryWeight Start Date: 01/17/24 Stop Date: 02/16/24 Status: Ordered Quantity: 90.0 Unit: tablet Repeat number: 1 lamotrigine 100 mg oral tablet 300 mg, By Mouth, 2 times a day, # 60 tablet, Refills 0, Tot. Refills 0, Maintenance, 01/17/24 2:21:00 PM EST, Route to Pharmacy Electronically, [facility], Partial fill upon patient request if the prescription is for a schedule II opioid drug., 180, cm, 01/04/24 13:52:00 EDT, Height,117.4, kg, 12/25/23 18:07:00 EDT, Dry Weight Start Date: 01/17/24 Stop Date: 02/16/24 Status: Ordered Quantity: 60.0 Unit: tablet Repeat number: 1 Melatonin 3 mg oral tablet TAKE 2 TABLETS BY MOUTH AT BEDTIME IF NEEDED FOR SLEEP Start Date: 12/25/23 Status: Ordered Repeat number: 1 olanzapine 5 mg oral tablet 5 mg, 1, tablet, By Mouth, Daily at bedtime, # 30 tablet, Refills 0, Maintenance, 11/20/23 8:26:00 AM EDT, Partial fill upon patient request if the prescription is for a schedule II opioid drug. Start Date: 11/20/23 Status: Ordered Quantity: 30.0 Unit: tablet Repeat number: 1 sertraline 50 mg oral tablet = 100 mg, By Mouth, Daily, 0 Refills, Maintenance, 12/19/23 7:31:00 AM EDT, Tablet, Partial fill upon patient request if the prescription is for a schedule II opioid drug. Start Date: 12/19/23 Status: Ordered Repeat number: 1 topiramate 100 mg oral tablet = 100 mg, By Mouth, 2 times a day, # 60 tablet, 0 Refills, Maintenance, 01/25/24 11:06:00 AM EST, Tablet, [facility], Partial fill upon patient request if the prescription is for a schedule II opioid drug., 178, cm, 01/23/24 22:46:00 EST, Height, 116.7, kg, 01/20/24 13:29:00 EST, Dry Weight Start Date: 01/25/24 Status: Ordered Quantity: 60.0 Unit: tablet Repeat number: 1 traZODone 50 mg oral tablet 50 mg, 1, tablet, By Mouth, Daily at bedtime, # 30 tablet, Refills 0, Maintenance, 11/20/23 8:26:00 AM EDT, Partial fill upon patient request if the prescription is for a schedule II opioid drug. Start Date: 11/20/23 Status: Ordered Quantity: 30.0 Unit: tablet Repeat number: 1 Vitamin B1 100 mg oral tablet 100 mg, 1, tablet, By Mouth, Daily Start Date: 07/29/21 Status: Ordered Repeat number: 1 Problem List Condition Confirmation Course Effective Dates [...] Exam Date Time Procedure Performing Provider Status 01/28/24 9:38 PM Chest 2 Views Frontal and Lat Morelia Nava; Dayana (Verified) Notes: (Chest 2 Views Frontal and Lat) Reason For Exam: Shortness of Breath, Fever;Other: RESULT: Chest 2 Views Frontal and Lat Chest 2 Views Frontal and Lat Reason: Other:; Shortness of Breath, Fever; Clinical Question(s): Pneumonia COMPARISON: 01/15/2024 FINDINGS: LINES AND TUBES: None. LUNGS AND PLEURA: Clear lungs. Normal pulmonary vascularity. No pleural effusion. No pneumothorax. HEART, MEDIASTINUM AND VELMA: Heart is normal in size. Normal mediastinal and hilar contour. BONES AND SOFT TISSUES: No acute abnormality. IMPRESSION: No acute abnormality. WSN: [id number] Ordering Physician: Ted Arreola Dictated By: Bindu Forde MD Dictated Date/Time: 01/28/24 10:17 p Reviewed By: Bindu Forde MD Signed By: Bindu Forde MD Signed Date/Time: 01/28/24 10:17 pm Transcribed By: JOJO Transcribed Date/Time: 01/28/24 10:17 pm * Exam Date Time Procedure Performing Provider Status 01/28/24 6:[address] Cervical Spine W/O Contrast Colon , Sherice; Auth (Verified) Notes: (CT Cervical Spine W/O Contrast) Reason For Exam: Neck trauma, dangerous injury mechanism;Other: RESULT: CT Cervical Spine W/O Contrast CT Head/Brain W/O Contrast, CT Cervical Spine W/O Contrast INDICATION: Hx of Present Illness: from home, reported seizure like activity, unwitnessed. Was alert and oriented upon arrival. Having involuntarily spasms initially. Had unwitnessed fall here in ED.Period of seizure like activity. supine protect. NRB. sera King md at bedside. Log roll; Reason: Trauma; Clinical Question(s): Hematoma; Order Comment: TECHNIQUE: Noncontrast head CT using axial technique was reconstructed in axial and coronal planes.Noncontrast spiral CT through the cervical spine was formatted in 3 planes. Automatic tube modulation was used for the cervical spine and iterative dose reconstruction was used for both the head and cervical spine to optimize scan parameters and image quality. CTDIvol Body: 18.60 mGy, DLP Body: 496 mGy*cm. CTDIvol Head: 39.40 mGy, DLP Head: 671 mGy*cm. COMPARISON: 01/20/2024 FINDINGS: Order Expediter View Findings, Lines and Tubes: None. BRAIN [...] of the head or cervical spine. WSN: [id number] Ordering Physician: Ted Arreola Dictated By: Bindu Forde MD Dictated Date/Time: 01/28/24 6:47 pm Reviewed By: Bindu Forde MD Signed By: Bindu Forde MD Signed Date/Time: 01/28/24 6:47 pm Transcribed By: JOJO Transcribed Date/Time: 01/28/24 6:43 pm * Exam Date Time Procedure Performing Provider Status 01/28/24 6:[address] Head/Brain W/O Contrast Colon , Ta jaja; Auth (Verified) Notes: (CT Head/Brain W/O Contrast) Reason For Exam: Trauma RESULT: CT Head/Brain W/O Contrast CT Head/Brain W/O Contrast, CT Cervical Spine W/O Contrast INDICATION: Hx of Present Illness: from home, reported seizure like activity, unwitnessed. Was alert and oriented upon arrival. Having involuntarily spasms initially. Had unwitnessed fall here in ED.Period of seizure like activity. supine protect. NRB. sera King md at bedside. Log roll; Reason: Trauma; Clinical Question(s): Hematoma; Order Comment: TECHNIQUE: Noncontrast head CT using axial technique was reconstructed in axial and coronal planes.Noncontrast spiral CT through the cervical spine was formatted in 3 planes. Automatic tube modulation was used for the cervical spine and iterative dose reconstruction was used for both the head and cervical spine to optimize scan parameters and image quality. CTDIvol Body: 18.60 mGy, DLP Body: 496 mGy*cm. CTDIvol Head: 39.40 mGy, DLP Head: 671 mGy*cm. COMPARISON: 01/20/2024 FINDINGS: Order Expediter View Findings, Lines and Tubes: None. BRAIN [...] of the head or cervical spine. WSN: [id number] Ordering Physician: Ted Arreola Dictated By: Bindu Forde MD Dictated Date/Time: 01/28/24 6:47 pm Reviewed By: Bindu Forde MD Signed By: Bindu Forde MD Signed Date/Time: 01/28/24 6:47 pm Transcribed By: JOJO Transcribed Date/Time: 01/28/24 6:43 pm Vital Signs Most recent to oldest [Reference Range]: 1 2 3 Oxygen Saturation [94-100 %] 98 % (01/29/24 1:14 PM) 97 % (01/29/24 10:18 AM) 97 % (01/29/24 7:48 AM) Pulse Rate [55-90 bpm] 65 bpm (01/29/24 1:14 PM) 61 bpm (01/29/24 10:18 AM) 60 bpm (01/29/24 7:48 AM) Blood Pressure [90-138/55-84 mm Hg] 141/75mm Hg *H* (01/29/24 1:14 PM) 140/81mm Hg *H* (01/29/24 10:18 AM) 126/68mm Hg (01/29/24 7:48 AM) Respiratory Rate [16-30 br/min] 17 br/min (01/29/24 1:14 PM) 16 br/min (01/29/24 10:18 AM) 15 br/min *L* (01/29/24 7:48 AM) Temperature [96.8-100.4 DegF] 97.5 DegF (01/29/24 7:48 AM) 98.2 DegF (01/29/24 12:24 AM) 97.6 DegF (01/28/24 4:52 PM) Mode of Delivery (Oxygen) Room air (01/29/24 1:14 PM) Room air (01/29/24 10:18 AM) Room air (01/29/24 7:48 AM) Blood pressure sites Arm, right (01/29/24 1:14 PM) Arm, right (01/29/24 10:18 AM) Arm, right (01/29/24 7:48 AM) Temperature Route Oral (01/29/24 7:48 AM) Oral (01/29/24 12:24 AM) Oral (01/28/24 4:52 PM) Social History Social History Type Response Smoking Status 5-9 cigarettes (betw een 1/4 to 1/2 pack)/day in last 30 days; Interested in cessation: No entered on: 08/17/22 Sex Sex Representation Male (finding) History and physical note * Venkata AVILA, Samir: PERFORM, MODIFY Event Display: History and Physical Hospital Authored Date: Patient: ??RAND WILKERSON ? Age:??43 Years?Sex:??Male?:??1980?? Chief Complaint/Reason for Consultation pt is coming from home reported seizure like acitivy per brother pt exhibiting frequent episode of twitching recently seen here for same complaints , no post ictal state History of Present Illness ?? 43-year-old male with a past medical history of bipolar disorder, alcohol use, COPD, juvenile myoclonic epilepsy, obesity, polysubstance abuse, smoking who was recently discharged from the [facility] 3 days back after having treatment of breakthrough seizure.?? He was loaded with Keppra was given Ativan and midazolam and was discharged home with advised to continue Topamax, clobazam, Lamictal with an appointment with follow-up with neurology at epilepsy clinic on 01/30. ?? Today, he came back with a complaint of recurrent seizure-like activity witnessed by his brother.??He was not sure what really happened to him. ??I was unable to get any more description of the seizure. ??No history of any tongue bite, incontinence of urine. ??In the ED he got up from the edge of the bed and fell to the ground with another episode of 1 minute seizure with significant postictal confusion.?? He was placed on a c-collar.?? CT of the head ruled out any acute intracranial pathologywith negative CT cervical spine. ?? Lab workup showed slightly high WBC count with high anion gap metabolic acidosis that got better.?? Urine analysis was normal.?? Topamax, Lamictal, clobazam level is pending.?? As per him he is compliant with his medication.?? He denied any illicit drug abuse??or history of alcohol intake.?? He is not sleeping well during nighttime.?? No sign or symptoms of any infectious etiology. Review of Systems Complain of some discomfort in left eye with clear??discharge.?? No chest pain, shortness of breath. ??Complaint of??headache 5/10 grade on and off on the left side.?? He denied any??tongue bite, incontinence of urine. ??Otherwise all other review of system are obtained from the patient and are negative for except as mentioned above Objective Vital Signs?? Temperature: 97.6 DegF (01/28/24 16:52:00) Temperature Route: Oral (01/28/24 16:52:00) Pulse Rate: 72 bpm (01/28/24 19:32:00) Respiratory Rate: 18 br/min (01/28/24 19:32:00) Systolic Blood Pressure:??144 mm Hg??High (01/28/24 19:32:00) Diastolic Blood Pressure: 75 mm Hg (01/28/24 19:32:00) Blood pressure sites: Arm, right (01/28/24 19:32:00) Mean Arterial Pressure: 98 mm Hg (01/28/24 19:32:00) Pulse Pressure: 69 mm Hg (01/28/24 19:32:00) Oxygen Saturation: 100 % (01/28/24 19:32:00) Mode of Delivery (Oxygen): Room air (01/28/24 19:32:00) Early Warning Score: 2 (01/28/24 20:32:18) ? Physical Exam General Appearance: Moderately nourished, not in any apparent distress. ??He was slow to respond??and little bit confused.. Skin: No rash. ??Warm, dry, pink, no pallor, intact. Eye:??Clear discharge from the left eye with??redness of??conjunctiva. HEENT: No JVP. ??Moist mucous membrane. Heart: ??S1, S2.? Respiratory: ??Clear to auscultation, no rhonchi, no wheezing, no crackles. GI: ??Abdomen is soft, nontender, nondistended. ??Bowel sounds are positive. ??No organomegaly Neurologic: ??Nonfocal neurological examination. ?? Deep tendon reflexes normal. Extremities: ??No calf tenderness, no clubbing, no edema. Psychiatric:??Unable to evaluate. Musculoskeletal: Moving all extremities. Lymphatic system: No cervical lymphadenopathy. Assessment/Plan ?? 43-year-old male with a past medical history of bipolar disorder, alcohol use, COPD, juvenile myoclonic epilepsy, obesity, polysubstance abuse, smoking who with a complaint of??breakthrough seizure. Breakthrough seizure (G40.919):??-?? Juvenile myoclonic epilepsy (G40.B09):??- Etiology of breakthrough seizures?. It might be a??compliance issue.??As per him he is not drinkingany alcohol or taking??any illicit drug abuse.?? He is not sleeping during nighttime.?? No sign or symptoms of infectious etiology.?? Clobazam, Lamictal, Keppra,??Topamax level is pending. Will follow-up with neurology??for further recommendation. No symptoms of infectious etiology.?? Will??have seizure prophylaxis and will give Ativan as needed.? Conjunctivitis of left eye (10.9 (ICD-10-CM) Will continue with the ciprofloxacin IV drops in the left eye. Alcohol use disorder (F10.90):??- He denied any??alcohol use.?? Will get alcohol level. ??Will put him on a CIWA score. ?? Bipolar disorder (F31.9):??- Anxiety Depression Denied any suicidal thoughts.?? Will continue with them??olanzapine, trazodone, hydroxyzine,??sertraline??during nighttime. ?? Tobacco user (Z72.0):??- Will continue with the nicotine patch. ?? COPD without exacerbation (J44.9):??- Stable if needed will continue with nebulizer treatment. ?? Depression (F32.A):??- Will continue with the sertraline. VTE Prophylaxis:??- Low risk for DVT. ?? Discharge Planning:??- To home after the neuro evaluation. Ongoing Medical Necessity:??- Pending neurology evaluation and close watch for any recurrent seizure. Code Status:??- Full code. ?? Estimated Discharge Date ?? Most likely tomorrow. Disclaimer: ??This note ??was accomplished with use of Auth0 voice recognition software, which is prone to medical and other word misidentifications and grammatical errors. ??The physician does strive to identify and correct these, but some could still be present. ??Please do not hesitate to contact the physician for clarifications. ??I will continue to take care of this patient till 7 AM of theadmitting date. Histories Allergies Allergies ?(Active and Proposed Allergies Only) cyclobenzaprine? (Severity: Unknown severity, Onset: Unknown) erythromycin? (Severity: Unknown severity, Onset: Unknown) ?Reactions: rash ? Past Medical History/Problem List Active Problems(8) Alcohol use disorder Bipolar disorder COPD without exacerbation COVID-19 Juvenile myoclonic epilepsy Obese class II Polysubstance abuse Tobacco user ? Social History Alcohol History of heavy alcohol intake in the past but during my examination he denied for any??alcohol use. ?? Exercise Details:??Self assessment: Good condition. Home/Environment Details:??Living situation: Home/Independent. ??Lives with: Mother. Nutrition/Health Details:??Diet: Regular. Substance Abuse Details:??Use: Past. ??Type: Cocaine, Heroin, Marijuana. Tobacco Details:??Use: 5-9 cigarettes (between 1/4 to 1/2 pack)/day in last 30 days. ??Interested in cessation: No. ? Family History As per patient??no history of any seizure??in the family. ?? Medications Home Medications Albuterol/Ipratropium (Combivent Respimat 20 mcg-100 mcg/inh inhalation aerosol)?1?puff(s)?Inhalation?4 times a day?Wheezing/Shortness of Breath Clobazam (clobazam 10 mg oral tablet)?10?Milligram?By Mouth?Daily in AM Clobazam (clobazam 10 mg oral tablet)?15?Milligram?By Mouth?Daily at bedtime HydrOXYzine (hydrOXYzine hydrochloride 25 mg oral tablet)?1?tab(s)?25?Milligram?By Mouth?4 times a day?as needed?for anxiety Lamotrigine (lamotrigine 100 mg oral tablet)?300?Milligram?By Mouth?2 [...] 1 TABLET BY MOUTH EVERY DAY?By Mouth?Daily Topiramate (topiramate 100 mg oral tablet)?100?Milligram?By Mouth?2 times a day Trazodone (traZODone 50 mg oral tablet)?50?Milligram?1?tablet?By Mouth?Daily at bedtime ? Results Recent Labs BLOOD COUNT & DIFF WBC 11.1 k/mm3 (High)?? 01/28/2024 18:04 RBC 4.60 m/mm3 (Low)?? 01/28/2024 18:04 Hgb 14.1 Gm/dL ()?? 01/28/2024 18:04 Hct 43.5 % ()?? 01/28/2024 18:04 MCV 94.6 femtoliters (High)?? 01/28/2024 18:04 MCH 30.7 pg ()?? 01/28/2024 18:04 MCHC 32.4 Gm/dL (Low)?? 01/28/2024 18:04 Platelet Count 244 k/mm3 ()?? 01/28/2024 18:04 RDW-SD 46.6 femtoliters ()?? 01/28/2024 18:04 MPV 11.5 femtoliters ()?? 01/28/2024 18:04 Nucleated RBC (Automated) 0.0 #/100 WBC'S ()?? 01/28/2024 18:04 Abs. NRBC 0.0 k/mm3 ()?? 01/28/2024 18:04 Abs. Neut 7.5 k/mm3 (High)?? 01/28/2024 18:04 Abs. Lymph 2.4 k/mm3 ()?? 01/28/2024 18:04 Abs. Woods 0.9 k/mm3 ()?? 01/28/2024 18:04 Abs. Eo 0.1 k/mm3 ()?? 01/28/2024 18:04 Abs. Baso 0.1 k/mm3 ()?? 01/28/2024 18:04 Neut % 68.0 % ()?? 01/28/2024 18:04 Lymph % 22.1 % ()?? 01/28/2024 18:04 Woods % 7.8 % ()?? 01/28/2024 18:04 Eos % 1.2 % ()?? 01/28/2024 18:04 Baso % 0.5 % ()?? 01/28/2024 18:04 Imm Gran 0.4 % ()?? 01/28/2024 18:04 Abs. Imm Gran 0.0 k/mm3 ()?? 01/28/2024 18:04 ?? CHEM GENERAL Sodium 141 mmol/L ()?? 01/28/2024 19:38 Potassium 4.0 mmol/L ()?? 01/28/2024 19:38 Chloride 110 mmol/L (High)?? 01/28/2024 19:38 Bicarbonate Level 19 mmol/L (Low)?? 01/28/2024 19:38 Anion Gap 12 ()?? 01/28/2024 19:38 Glucose Level 87 mg/dL ()?? 01/28/2024 19:38 BUN 16 mg/dL ()?? 01/28/2024 19:38 Creatinine-Blood 0.76 mg/dL ()?? 01/28/2024 19:38 Estimated GFR Creatinine 115 ML/MIN/1.73 M2 ()?? 01/28/2024 19:38 Calcium 8.9 mg/dL ()?? 01/28/2024 19:38 Protein, Total 7.2 Gm/dL ()?? 01/28/2024 18:04 Albumin 4.3 Gm/dL ()?? 01/28/2024 18:04 AG Ratio 1.5 ()?? 01/28/2024 18:04 Alkaline Phosphatase 98 units/L ()?? 01/28/2024 18:04 Lipase 42 units/L ()?? 01/28/2024 18:04 AST (SGOT) 37 units/L ()?? 01/28/2024 18:04 ALT (SGPT) 22 units/L ()?? 01/28/2024 18:04 Bilirubin, Total 0.3 mg/dL ()?? 01/28/2024 18:04 ?? TOXICOLOGY/TDM Ethanol, Serum or Plasma NONE DETECTED mg/dL ()?? 01/28/2024 18:04 Levetiracetam Level <2 mg/L ()?? 01/28/2024 18:04 ?? UA/URINALYSIS Appear/Color, Urine COLORLESS ()?? 01/28/2024 18:40 Specific [place], Urine 1.010 ()?? 01/28/2024 18:40 pH, Urine 6.5 ()?? 01/28/2024 18:40 Albumin, Urine NEGATIVE ()?? 01/28/2024 18:40 Glucose, Urine NEGATIVE ()?? 01/28/2024 18:40 Ketones, Urine NEGATIVE ()?? 01/28/2024 18:40 Bilirubin, Urine NEGATIVE ()?? 01/28/2024 18:40 Hemoglobin, Urine NEGATIVE ()?? 01/28/2024 18:40 Nitrite, Urine NEGATIVE ()?? 01/28/2024 18:40 Leukocyte, Urine NEGATIVE ()?? 01/28/2024 18:40 Urobilinogen NORMAL mg/dL ()?? 01/28/2024 18:40 WBC's, Urine <1 /HPF ()?? 01/28/2024 18:40 RBC's, Urine 2 /HPF ()?? 01/28/2024 18:40 Squamous Epith <1 /HPF ()?? 01/28/2024 18:40 Hold Urine Culture Testing available 48 hours from time of collection. ()?? 01/28/2024 18:40 ? EKG study * Event Display: ECG 12-Lead Authored Date: Please click on pdf link to open report * Event Display: ECG 12-Lead Authored Date: Ventricular Rate: 65 BPM Atrial Rate: 65 BPM P-R Interval: 210 ms QRS Duration: 106 ms Q-T Interval: 404 ms QTC Calculation(Bazett): 420 ms P Cosmos: 32 degrees R Cosmos: 10 degrees T Cosmos: 17 degrees Sinus rhythm with 1st degree A-V block Otherwise normal ECG When compared with ECG of 20-Jan-2024 07:39, No significant change was found Confirmed by FABIAN CALABRESE MD ([id number]) on 01/29/2024 8:10:17 AM [place]: FABIAN CALABRESE MD Consult note * Jessica Hammonds MD: PERFORM, MODIFY, MODIFY, MODIFY, MODIFY Event Display: Consultation Note Authored Date: Patient: ??RAND WILKERSON ? Age:??43 Years?Sex:??Male?:??1980?? Chief Complaint pt is coming from home reported seizure like acitivy per brother pt exhibiting frequent episode of twitching recently seen here for same complaints , no post ictal state History of Present Illness 43 y/o man with PMH of bipolar disorder, JENNI (Currently maintained on Clobazam 10 mg BID,??topiramate 100 mg BID, ??Lamictal 300mg BID),??ETOH and substance use disorder?? in recovery, obesity, and multiple hospitalizations for??breakthrough seizures (some previously in the setting of medication non compliance,??as well as??COVID infection) who was just evaluated on 01/15 for??seizures at home, presenting for seizure recurrence. The patient reports?? that he had a seizure yesterday. He states that he takes multiple antiseizure meds that require morning doses (usually 8:30 am) and that his VNA didn't come for med administration until 11:30 am. States he used to take meds 7am/ 7pm. States he has not missed doses of his antiseizure meds. He cannot list the current antiseizure med regimen but it is listed in Neurology note from hospitalization earlier this month. Review of Systems Eyes: +left eye injury/ eyelash problem/ conjunctivitis, states he is unable to open eye as a result of this. states he was instructed not to open it with??his fingers ?? Physical Exam Vitals & Measurements T:??97.5?F?? HR:??65??(Peripheral)?? RR:??17?? BP:??141/75?? SpO2:??98%? General: no acute distress HEENT: left eyelid appears puffy, pt states he has been??unable to open it/ instructed not to open it with??his fingers ?? Resp: nonlabored Skin: warm, dry ?? Mental Status: alert, attentive. Answers questions appropriately. Fully oriented, gives clear history of symptoms. Has trouble with midline-crossing command Cranial Nerves:??Right pupil round/ reactive, unable to open left as above in setting of conjunctivitis.??Right eye tracks to either side. Facial sensation intact. Facial movements full and symmetric. Hearing intact to conversation. Tongue/ palate midline. SCM/trap 5/5?? Motor: moving b/l UE/LE antigravity to command . No pronator drift Sensory: - Light touch: intact Gait: defer d/t sz precautions Assessment/Plan Breakthrough seizure: in the setting of late administration of his antiseizure meds.?Continue topiramate 100mg BID,??clobazam?? 10mg BID,??Lamotrigine 300mg BID. ??Avoid late administration of meds Patient has epilepsy clinic f/u with Camila Ramey NP on Tuesday 01/30 and confirms he knows theappt time and has arranged a ride to get there Confirmed he is not driving. ?? Neurology will sign off. Recommendations discussed with primary team Problem List/Past Medical History Ongoing Alcohol use disorder Bipolar disorder COPD without exacerbation COVID-19 Juvenile myoclonic epilepsy Obese class II Polysubstance abuse Tobacco user Procedure/Surgical History No qualifying data available. Home Medications Albuterol/Ipratropium: 1 puffs, Inhalation, 4 times a day Ciprofloxacin Ophthalmic: 2 drops, Eye, Left, 2 times a day Clobazam: 10 mg, By Mouth, Daily in AM Clobazam: 15 mg, By Mouth, Daily at bedtime HydrOXYzine: 25 mg = 1 tablet, By Mouth, 4 times a day, PRN (for anxiety) Lamotrigine: 300 mg, By Mouth, 2 times a day levETIRAcetam: 1,500 mg, By Mouth, 2 times a day Melatonin: TAKE 2 TABLETS BY MOUTH AT BEDTIME IF NEEDED FOR SLEEP Olanzapine: 5 mg = 1 tablet, By Mouth, Daily at bedtime Sertraline: 100 mg, By Mouth, Daily Thiamine: 100 mg = 1 tablet, By Mouth, Daily Topiramate: 100 mg, By Mouth, 2 times a day Trazodone: 50 mg = 1 tablet, By [...] last 30 days. Interested in cessation: No. lives with brother. Not working. does not drive. No alcohol/ drugs. + tobacco Family History No family history recorded. Follow-Up Appointments Added Follow Up ?Time Frame ?Comments Name Matthieu AVILA Patient Instructions You are admitted for breakthrough seizures?? Continue current home medications Please follow-up with neurology??as previously scheduled on 01/30 Note * Marcelle Whaley MD: PERFORM Event Display: Discharge/Transfer Note Hospital Authored Date: [id number] Patient: ??RAND WILKERSON ? Age:??43 Years?Sex:??Male?:??1980?? Patient Information Discharge Location: [facility] Primary Care Physician: Matthieu Buenrostro MD Admit Date/Time: 01/28/2024 19:36 Discharge Disposition Discharge Disposition: Home with Home Health Discharge Diagnosis Breakthrough seizure (G40.919) Juvenile myoclonic epilepsy (G40.B09) Alcohol use disorder (F10.90) Bipolar disorder (F31.9) Tobacco user (Z72.0) COPD without exacerbation (J44.9) Depression (F32.A) Conjunctivitis of left eye (H10.9) General medical ([id number]) _ Discharge Medications Albuterol/Ipratropium (Combivent Respimat 20 mcg-100 mcg/inh inhalation aerosol)?1?puff(s)?Inhalation?4 times a day?Wheezing/Shortness of Breath Ciprofloxacin Ophthalmic (ciprofloxacin 0.3% ophthalmic solution)?2?Drops?Eye, Left?2 times a day?for 10?Days Clobazam (clobazam 10 mg oral tablet)?10?Milligram?By Mouth?Daily in AM Clobazam (clobazam 10 mg oral tablet)?15?Milligram?By Mouth?Daily at bedtime HydrOXYzine (hydrOXYzine hydrochloride 25 mg oral tablet)?1?tab(s)?25?Milligram?By Mouth?4 times a day?as needed?for anxiety Lamotrigine (lamotrigine 100 mg oral tablet)?300?Milligram?By Mouth?2 [...] 1 TABLET BY MOUTH EVERY DAY?By Mouth?Daily Topiramate (topiramate 100 mg oral tablet)?100?Milligram?By Mouth?2 times a day Trazodone (traZODone 50 mg oral tablet)?50?Milligram?1?tablet?By Mouth?Daily at bedtime ? Quality Measures Tobacco Use Treatment:? Medications Started Cipro Floxin eyedrops Medications Discontinued None Doses Changed None Allergies Allergies ?(Active and Proposed Allergies Only) cyclobenzaprine? (Severity: Unknown severity, Onset: Unknown) erythromycin? (Severity: Unknown severity, Onset: Unknown) ?Reactions: rash ? PCP Follow-Up/Heads-Up Patient needs CBC BMP in 7 days. Future Appointments Wednesday 3:00 PM EST ?? With: Tanvir NUÑEZ, Camila Chavez Where: [facility] [address], [address] [place] [address]- Status: Pending Wednesday 8:30 AM EST ?? With: Ursula Daugherty Where: [facility] [address] [place] [address]- Status: Pending Hospital Course ??43-year-old male with a past medical history of bipolar disorder, alcohol use, COPD, juvenile myoclonic epilepsy, obesity, polysubstance abuse, smoking who with a complaint of??breakthrough seizure. Breakthrough seizure (G40.919):??-?? Juvenile myoclonic epilepsy (G40.B09):??- Etiology of breakthrough seizures?. It might be a??compliance issue.??As per him he is not drinkingany alcohol or taking??any illicit drug abuse. As per him,??there is a delay??in taking his??a.m.??home seizure medications??due to??[facility]??being late Could be most likely the cause??for his breakthrough seizures Continue??current home medication??with Keppra, topiramate, lamotrigine, clobazam Appreciate neurology evaluation, cleared patient for discharge ?? Conjunctivitis of left eye (10.9 (ICD-10-CM) Patient started on Cipro Floxin drops in the left eye Alcohol use disorder (F10.90):??- Stable. ?? Bipolar disorder (F31.9):??- Anxiety Depression Denied any suicidal thoughts.?? Will continue with them??olanzapine, trazodone, hydroxyzine,??sertraline??during nighttime. ?? Tobacco user (Z72.0):??- Will continue with the nicotine patch. ?? COPD without exacerbation (J44.9):??- Stable ?? Depression (F32.A):??- Will continue with the sertraline. VTE Prophylaxis:??- Low risk for DVT.. Code Status:??- Full code. ?? Discharge to home today Objective Assessment and Plan Discharge Planning:? Vital Signs?? Temperature: 97.5 DegF (01/29/24 07:48:00) Temperature Route: Oral (01/29/24 07:48:00) Pulse Rate: 61 bpm (01/29/24 10:18:00) Respiratory Rate: 16 br/min (01/29/24 10:18:00) Systolic Blood Pressure:??140 mm Hg??High (01/29/24 10:18:00) Diastolic Blood Pressure: 81 mm Hg (01/29/24 10:18:00) Blood pressure sites: Arm, right (01/29/24 10:18:00) Mean Arterial Pressure: 82 mm Hg (01/29/24 02:43:00) Pulse Pressure: 59 mm Hg (01/29/24 10:18:00) Oxygen Saturation: 97 % (01/29/24 10:18:00) Mode of Delivery (Oxygen): Room air (01/29/24 10:18:00) Early Warning Score: 2 (01/29/24 10:49:40) ? Intake/Output? No Data Available ?? . Physical Exam General Appearance: No acute distress.. Skin: No rash. ??Warm, dry, pink, no pallor, intact. Eye:??Clear discharge from the left eye with??redness of??conjunctiva. HEENT: No JVP. ??Moist mucous membrane. Heart: ??S1, S2.? Respiratory: ??Clear to auscultation, no rhonchi, no wheezing, no crackles. GI: ??Abdomen is soft, nontender, nondistended. ??Bowel sounds are positive. ??No organomegaly Neurologic: ??Nonfocal neurological examination. ?? Deep tendon reflexes normal. Extremities: ??No calf tenderness, no clubbing, no edema. Musculoskeletal: Moving all extremities. Lymphatic system: No cervical lymphadenopathy. Consultants Neurology Pending Results Add On Lab Order ordered on 01/28/2024 Add On Lab Order ordered on 01/28/2024 Cannabinoid Urine Screen ordered on 01/28/2024 Clobazam Level ordered on 01/28/2024 Lamotrigine Level ordered on 01/28/2024 Topamax Level ordered on 01/28/2024 Follow-Up Appointments Added Follow Up ?Time Frame ?Comments Name Matthieu AVILA Patient Instructions You are admitted for breakthrough seizures?? Continue current home medications Please follow-up with neurology??as previously scheduled on 01/30 Home Health Face to Face *Denotes mandatory kramer ?? *I certify that this patient is under my care and that I or an allowed non- physician working with me had a face to face encounter with the patient on this date:??01/29/2024 12:06 ?? *The encounter with the patient was in whole, or in part, for the following medical condition, which is the primary diagnosis(es) for home health care:??Breakthrough seizure (G40.919) Juvenile myoclonic epilepsy (G40.B09) Alcohol use disorder (F10.90) Bipolar disorder (F31.9) Tobacco user (Z72.0) COPD without exacerbation (J44.9) Depression (F32.A) Conjunctivitis of left eye (H10.9) General medical ([id number]) ?? *Select the indications for the discipline/s that are being arranged for this patient. Nursing (select all that apply): [_] None [x_] Medication management (reconciliation, teaching)?? [_] Chronic disease management?? [_] Wound care and treatment?? [_] Home safety evaluation [_] Administer SQ/IM/IV medications?? [_] Cath care?? [_] Drain care?? [_] Trach or GT care?? Other _ Occupation Therapy (select all that apply): [x_] None [_] ADL Management [_] Fall prevention training [_] Energy conservation [_] Cognitive training Other _ Physical Therapy (select all that apply): [_x] None [_] Functional mobility training [_] Home exercise program to strengthen [_] Increase ROM?? [_] Falls prevention training [_] Home maintenance program for chronic disease Other _ Speech Therapy (select all that apply): [_x] None [_] Swallow evaluation and training [_] Speech and language training [_] Cognitive training to process, organize, and/or recall information Other _ ? *Homebound due to (select all that apply): [_x] Inability to leave home without assistance/supervision [_] Inability to ambulate without assistance [_] Pain [_] Decreased strength and endurance [_] Unsteady gait [_] Severe SOB and fatigue [_] Impaired transfers [_] Inability to negotiate stairs [_] Limited weight bearing [_] Mental status change? *Physician Signature: _Marcelle Whaley ?? *By signing this, I certify that I have personally evaluated the patient and agree with the findings and recommendations as documented above. ? Results Discharge Labs BLOOD COUNT & DIFF WBC 11.1 k/mm3 (High)?? 01/28/2024 18:04 RBC 4.60 m/mm3 (Low)?? 01/28/2024 18:04 Hgb 14.1 Gm/dL ()?? 01/28/2024 18:04 Hct 43.5 % ()?? 01/28/2024 18:04 MCV 94.6 femtoliters (High)?? 01/28/2024 18:04 MCH 30.7 pg ()?? 01/28/2024 18:04 MCHC 32.4 Gm/dL (Low)?? 01/28/2024 18:04 Platelet Count 244 k/mm3 ()?? 01/28/2024 18:04 RDW-SD 46.6 femtoliters ()?? 01/28/2024 18:04 MPV 11.5 femtoliters ()?? 01/28/2024 18:04 Nucleated RBC (Automated) 0.0 #/100 WBC'S ()?? 01/28/2024 18:04 Abs. NRBC 0.0 k/mm3 ()?? 01/28/2024 18:04 Abs. Neut 7.5 k/mm3 (High)?? 01/28/2024 18:04 Abs. Lymph 2.4 k/mm3 ()?? 01/28/2024 18:04 Abs. Woods 0.9 k/mm3 ()?? 01/28/2024 18:04 Abs. Eo 0.1 k/mm3 ()?? 01/28/2024 18:04 Abs. Baso 0.1 k/mm3 ()?? 01/28/2024 18:04 Neut % 68.0 % ()?? 01/28/2024 18:04 Lymph % 22.1 % ()?? 01/28/2024 18:04 Woods % 7.8 % ()?? 01/28/2024 18:04 Eos % 1.2 % ()?? 01/28/2024 18:04 Baso % 0.5 % ()?? 01/28/2024 18:04 Imm Gran 0.4 % ()?? 01/28/2024 18:04 Abs. Imm Gran 0.0 k/mm3 ()?? 01/28/2024 18:04 ?? CHEM GENERAL Sodium 141 mmol/L ()?? 01/28/2024 19:38 Potassium 4.0 mmol/L ()?? 01/28/2024 19:38 Chloride 110 mmol/L (High)?? 01/28/2024 19:38 Bicarbonate Level 19 mmol/L (Low)?? 01/28/2024 19:38 Anion Gap 12 ()?? 01/28/2024 19:38 Glucose Level 87 mg/dL ()?? 01/28/2024 19:38 Glucose, POC 77 mg/dL ()?? 01/29/2024 08:06 BUN 16 mg/dL ()?? 01/28/2024 19:38 Creatinine-Blood 0.76 mg/dL ()?? 01/28/2024 19:38 Estimated GFR Creatinine 115 ML/MIN/1.73 M2 ()?? 01/28/2024 19:38 Calcium 8.9 mg/dL ()?? 01/28/2024 19:38 Protein, Total 7.2 Gm/dL ()?? 01/28/2024 18:04 Albumin 4.3 Gm/dL ()?? 01/28/2024 18:04 AG Ratio 1.5 ()?? 01/28/2024 18:04 Alkaline Phosphatase 98 units/L ()?? 01/28/2024 18:04 Lipase 42 units/L ()?? 01/28/2024 18:04 AST (SGOT) 37 units/L ()?? 01/28/2024 18:04 ALT (SGPT) 22 units/L ()?? 01/28/2024 18:04 Bilirubin, Total 0.3 mg/dL ()?? 01/28/2024 18:04 ? HEME OTHER Hold Lavender Top SPECIMEN DISCARDED AFTER 24 HOURS. ()?? 01/28/2024 19:38 ? TOXICOLOGY/TDM Ethanol, Serum or Plasma NONE DETECTED mg/dL ()?? 01/28/2024 19:38 Cannabinoid Screen, Urine NONE DETECTED ()?? 01/29/2024 00:13 Cocaine Metabolite Screen, Urine NONE DETECTED ()?? 01/29/2024 00:13 Amphetamine Screen, Urine NONE DETECTED ()?? 01/29/2024 00:13 Opiate Screen, Urine NONE DETECTED ()?? 01/29/2024 00:13 Oxycodone Screen, Urine NONE DETECTED ()?? 01/29/2024 00:13 Levetiracetam Level <2 mg/L ()?? 01/28/2024 18:04 Fentanyl Screen, Urine Result NONE DETECTED ()?? 01/29/2024 00:13 ?? UA/URINALYSIS Appear/Color, Urine COLORLESS ()?? 01/28/2024 18:40 Specific [place], Urine 1.010 ()?? 01/28/2024 18:40 pH, Urine 6.5 ()?? 01/28/2024 18:40 Albumin, Urine NEGATIVE ()?? 01/28/2024 18:40 Glucose, Urine NEGATIVE ()?? 01/28/2024 18:40 Ketones, Urine NEGATIVE ()?? 01/28/2024 18:40 Bilirubin, Urine NEGATIVE ()?? 01/28/2024 18:40 Hemoglobin, Urine NEGATIVE ()?? 01/28/2024 18:40 Nitrite, Urine NEGATIVE ()?? 01/28/2024 18:40 Leukocyte, Urine NEGATIVE ()?? 01/28/2024 18:40 Urobilinogen NORMAL mg/dL ()?? 01/28/2024 18:40 WBC's, Urine <1 /HPF ()?? 01/28/2024 18:40 RBC's, Urine 2 /HPF ()?? 01/28/2024 18:40 Squamous Epith <1 /HPF ()?? 01/28/2024 18:40 Hold Urine Culture Testing available 48 hours from time of collection. ()?? 01/28/2024 18:40 ? 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 #1 Intake Service Categories #1 Senior Care Service Start Date and Time #1 01/29/2024 12:30 Service Comments #1 The VNA will resume services with you after discharge 01/25/2024 15:10 EST Discharge Level of Care at Discharge Homehealth/[facility]NA Discharge VNA/Hospice/Home Care Manuel Kohler [phone] 01/25/2024 9:58 EST Discharge Level of Care at Discharge Homehealth/[facility]NA Discharge VNA/Hospice/Home Care [facility] Kohler [phone] Discharge Transportation Arranged Brother Dom Name of Agency #1 Manuel Caring Service Categories #1 Senior Care Service Comments #1 Manuel Kohler will resume services and will now see you 7 days a week. Name of Person Notified of Transfer Patient and joselineer Dom Patient Care team information Care Team Personnel Name: Dalia Collazo RN Position: [facility] RN Member Role: Primary Care Nurse Name: Gus Mcgraw RN Position: [facility] RN Member Role: Primary Care Nurse Name: Monika June RN Position: [facility] RN Member Role: Primary Care Nurse Name: Patience Mcpherson RN Position: [facility] RN Member Role: Primary Care Nurse Name: Therese Gross RN Position: [facility] RN Member Role: Primary Care Nurse Name: Misael Gong RN Position: [facility] RN Member Role: Primary Care Nurse Name: Isadora Rice RN Position: [facility] RN Member Role: Primary Care Nurse Name: Joseluis Thorpe RN Position: [facility] RN Member Role: Primary Care Nurse Name: Stas Erwin RN Position: [facility] RN Member Role: Primary Care Nurse Name: Valencia Fisher Position: [facility] RN Supv Member Role: Primary Care Nurse Name: Francesco Baca RN Position: [facility] RN Member Role: Primary Care Nurse Name: Angelika Gu RN Position: [facility] RN Member Role: Primary Care Nurse Name: Melanie Sainz RN Position: [facility] RN Member Role: Primary Care Nurse Name: Monika Singh RN Position: [facility] RN Member Role: Primary Care Nurse Name: Kavita Polo NP Position: [facility] Associate Professional Member Role: Primary Care Nurse Address: [address] [place] [address]- Telecom: Name: Beau Rhoades RN Position: [facility] RN Member Role: Primary Care Nurse Name: Matthieu Buenrostro MD Position: [facility] Outreach Member Role: PCP Address: [address] [place] [id number] [place] Telecom: Name: Evaristo Huggins RN Position: [facility] RN Member Role: Primary Care Nurse Name: Darby Cerda RN Position: [facility] RN Member Role: Primary Care Nurse Name: See Chavez RN Position: [facility] RN Member Role: Primary Care Nurse Name: Kalyan Cazares RN Position: [facility] RN Member Role: Primary Care Nurse Name: Myke Mcfadden RN Position: [facility] RN Member Role: Primary Care Nurse Name: Monika Marquez RN Position: [facility] RN Member Role: Primary Care Nurse Name: Elaine Reis RN Position: [facility] RN Member Role: Primary Care Nurse Name: Clay Quiñonez RN Position: [facility] RN Member Role: Primary Care Nurse Name: Veronika Dinero LPN Position: [facility] RN Member Role: Primary Care Nurse Name: Paul Ruiz RN Position: [facility] RN Member Role: Primary Care Nurse Care Team Related Persons Name: KAREN GIRONNE Name: DOM DOOLEY Insurance Providers Guarantor name: Health Plan Information #: 1 Payer: [facility] Member Number: [id number] Policy Number: NA Group Number: Health Plan Information #: 2 Payer: [facility] Member Number: [id number] Policy Number: Group Number: NA
--- OUTSIDE RECORDS SUMMARY | 2024-02-03 15:00 | XMS_ITS | Continuity of Care Document ---
Author Organization [facility] Address [address] [place] [id number] Care Team Providers Care Generator Worker Name Role Phone Name Matthieu AVILA Primary Care Physician Encounter [facility] [place] [facility] [place] Date(s): 12/10/23 - 12/13/[address] [address] Discharge Disposition: A-D/C Home Attending Physician: Gerald Baumann MD Admitting Physician: Marcelle Whaley MD Referring Physician: Not on Staff, Referring MD Allergies, Adverse Reactions, Alerts Substance Reaction Severity Status cyclobenzaprine Active erythromycin rash Active Immunizations Given and Recorded Vaccine Date Status Refusal Reason tetanus/diphtheria/pertussis, acel(Tdap) 07/13/20 Recorded tetanus/diphtheria/pertussis, acel(Tdap) 12/23/09 Recorded Medications Acetaminophen Tablet 650 mg, Tablet, By Mouth, Every 4 hours, PRN for Pain , Mild, Temperature Greater than 100.5, Routine, 12/10/23 13:12:00 EDT Start Date: 12/10/23 Stop Date: 12/13/23 Status: Discontinued clobazam 10 mg oral tablet See Instructions, Take 15 mg in a.m. and 20 mg in p.m. (Dose increased from 15 mg twice a day), # 105 tablet, 0 Refills, Maintenance, 12/13/23 11:06:00 EDT, Tablet, [facility], Take 15 mg in a.m. and 20 mg in p.m. (Dose increased from 15... Start Date: 12/13/23 Status: Ordered Combivent Respimat 20 mcg-100 mcg/inh [...] without exacerbation Confirmed Active COVID Confirmed Active COVID-19 1 Confirmed 12/04/23 Active Obese class II Confirmed Active Obesity Confirmed Active Polysubstance abuse Confirmed Active 1Problem added by Discern Expert Vital Signs Most recent to oldest [Reference Range]: 1 2 3 Height 182 cm (12/10/23 9:54 PM) Weight 117.9 kg (12/10/23 9:54 PM) Oxygen Saturation [94-100 %] 98 % (12/13/23 11:00 AM) 96 % (12/13/23 7:00 AM) 98 % (12/12/23 11:00 PM) Pulse Rate [55-90 bpm] 59 bpm (12/13/23 11:00 AM) 56 bpm (12/13/23 7:00 AM) 56 bpm (12/12/23 11:00 PM) Body Mass Index [18.5-24.99 kg/m2] 35.59 kg/m2 *>HHI* (12/10/23 9:54 PM) Blood Pressure [90-138/55-84 mm Hg] 102/47mm Hg (12/13/23 11:00 AM) 117/51mm Hg (12/13/23 7:00 AM) 130/69mm Hg (12/12/23 11:00 PM) Respiratory Rate [16-30 br/min] 17 br/min (12/13/23 11:00 AM) 16 br/min (12/13/23 9:49 AM) 17 br/min (12/13/23 7:00 AM) Temperature [96.8-100.4 DegF] 98.1 DegF (12/13/23 11:00 AM) 97.6 DegF (12/13/23 7:00 AM) 98.0 DegF (12/12/23 11:00 PM) Mode of Delivery (Oxygen) Room air (12/13/23 11:00 AM) Room air (12/13/23:00 AM) Room air (12/12/23 11:00 PM) Blood pressure sites Arm, left (12/13/23 11:00 AM) Arm, left (12/13/23 7:00 AM) Arm, left (12/12/23 11:00 PM) Temperature Route Oral (12/13/23 11:00 AM) Temporal (12/13/23 7:00 AM) Oral (12/12/23 11:00 PM) Dry Weight 117.9 kg (12/10/23 9:54 PM) Social History Social History Type Response Smoking Status 5-9 cigarettes (betw een 1/4 to 1/2 pack)/day in last 30 days; Interested in cessation: No entered on: 08/17/22 Sex Admission evaluation note * Gustavo AVILA, Leonardo Santiago A: PERFORM, MODIFY Event Display: Admission Note Authored Date: [id number] Patient: ??RAND WILKERSON ? Age:??43 Years?Sex:??Male?:??1980?? Chief Complaint/Reason for Consultation Breakthrough seizure. History of Present Illness 66 y/o M w Obesity, COPD,?? JENNI (on clobazam, Lamictal and phenytoin), substance use disorder (alcohol, cocaine and ecstasy), Bipolar disorder, and recent COVID 19 infection who presented with breakthrough seizure. ?? reportedly patient came in with increase in myoclonic activity, ED gave Ativan 1mg [id number] with some improvement however patient remains with myoclonic twitching. ?? Patient had recurrent hospital admissions in the last month with seizure breakthrough: 11/18-11/20: Clobazam increased switched to 5 mg in AM and 10 mg in PM. 11/24-11/25: Clobazam increased to 10 mg BID. 12/01-12/03: Clobazam increased to 15 mg BID - was also found to have positive COVID 19 PCR on 12/01, asymptomatic. ?? In the ED: - Vitals: Tmax 97.6, HR 50s-60s, BP 140s-160s/70s-90s mmHg, RA - Labs: CBC (WBC 3.8), BMP-LFT, LA (WNL), Valproic level (less than 2.8), Dilantin 23 (high) ?? She was given 1 mg of IV Ativan x 2 and 1 L of fluid. He was evaluated by neurology who recommended continuing home medications and Video EEG. Review of Systems Constitutional:?No weight loss, fever, [...] change in bowel or bladder control. Musculoskeletal: No muscle pain, back pain, joint pain or stiffness. Hematologic: No bleeding or bruising. Lymphatics: No enlarged lymph nodes. Psychiatric: No depression or anxiety. Endocrine: No reports of sweating. No cold or heat intolerance. No polyuria or polydipsia. All other systems were reviewed and are negative.?? Objective Vital Signs?? Temperature: 97.6 DegF (12/10/23 09:25:00) Temperature Route: Oral (12/10/23 09:25:00) Pulse Rate: 58 bpm (12/10/23 14:38:00) Respiratory Rate: 16 br/min (12/10/23 14:38:00) Systolic Blood Pressure:??165 mm Hg??High (12/10/23 14:38:00) Diastolic Blood Pressure:??91 mm Hg??High (12/10/23 14:38:00) Pulse Pressure: 74 mm Hg (12/10/23 14:38:00) Oxygen Saturation: 98 % (12/10/23 14:38:00) Mode of Delivery (Oxygen): Room air (12/10/23 14:38:00) Early Warning Score: 5 (12/10/23 14:39:14) ? Physical Exam Constitutional: Alert, in no acute distress. Head: Normocephalic. Eyes: Pupils are equal and round. Extraocular muscles intact. No pallor or scleral icterus Ear, Nose and Throat: mucous membranes moist. Ears and nose - no obvious deformities. Neck: No JVD. Respiratory:??Equal bilateral air entry. No wheezing or rhonchi.??No use of accessory muscles. Cardiovascular:??S1 S2 regular. No murmurs, rubs or gallops. Gastrointestinal:??Abdomen soft, non-tender, non-distended. Extremities: No lower extremity pitting edema. Neurologic:?? Cranial nerves II-XII grossly intact. Speech normal, no facial droop. No focal neurological deficits. Moves all extremities spontaneously. Musculoskeletal:??No gross deformities on inspection. .?? Psychiatric: Normal mood and affect. 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 Assessment:??66 y/o M w Obesity, COPD,??JENNI (on clobazam, Lamictal and phenytoin), substance use disorder (alcohol, cocaine and ecstasy), Bipolar disorder, and recent COVID 19 infection who presentedwith breakthrough seizure. ?? Juvenile myoclonic epilepsy (G40.B09):??JENNI (on clobazam, Lamictal and phenytoin) Patient had recurrent hospital admissions in the last month with seizure breakthrough: 11/18-11/20: Clobazam increased switched to 5 mg in AM and 10 mg in PM. 11/24-11/25: Clobazam increased to 10 mg BID. 12/01-12/03: Clobazam increased to 15 mg BID present with??increase in myoclonic activity, - resume clobazam, Lamictal??and phenytoin.?? - seizure precaution.?? - f/u medications levels.?? - VEEG.?? - f/u neurology recommendation. ?? COVID-19 (U07.1):??Tested positive on 12/01 - asymptomatic - on room air.?? - Isolation till end of 12/10.? Bipolar disorder (F31.9):??Resume??olanzapine, Zoloft, trazodone. ?? VTE Prophylaxis:??Lovenox.?? Code Status:??presumed full code Histories Allergies Allergies ?(Active and Proposed Allergies Only) cyclobenzaprine? (Severity: Unknown severity, Onset: Unknown) erythromycin? (Severity: Unknown severity, Onset: Unknown) ?Reactions: rash ? Past Medical History/Problem List Active Problems(6) COPD without exacerbation COVID COVID-19 Obese class II Obesity Polysubstance abuse ? Past Surgical History [...] a day Clobazam (clobazam 10 mg oral tablet)?1.5?tab(s)?15?Milligram?By Mouth?2 times a day?for 30?Days Folic Acid (folic acid 1 mg oral [...] Recent Labs BLOOD COUNT & DIFF WBC 3.8 k/mm3 (Low)?? 12/10/2023 10:24 RBC 4.50 m/mm3 (Low)?? 12/10/2023 10:24 Hgb 13.7 Gm/dL ()?? 12/10/2023 10:24 Hct 41.1 % ()?? 12/10/2023 10:24 MCV 91.3 femtoliters ()?? 12/10/2023 10:24 MCH 30.4 pg ()?? 12/10/2023 10:24 MCHC 33.3 Gm/dL ()?? 12/10/2023 10:24 Platelet Count 186 k/mm3 ()?? 12/10/2023 10:24 RDW-SD 46.0 femtoliters ()?? 12/10/2023 10:24 MPV 10.5 femtoliters ()?? 12/10/2023 10:24 Nucleated RBC (Automated) 0.0 #/100 WBC'S ()?? 12/10/2023 10:24 Abs. NRBC 0.0 k/mm3 ()?? 12/10/2023 10:24 Abs. Neut 1.6 k/mm3 ()?? 12/10/2023 10:24 Abs. Lymph 1.7 k/mm3 ()?? 12/10/2023 10:24 Abs. [place] 0.3 k/mm3 (Low)?? 12/10/2023 10:24 Abs. Eo 0.2 k/mm3 ()?? 12/10/2023 10:24 Abs. Baso 0.0 k/mm3 ()?? 12/10/2023 10:24 Neut % 40.6 % (Low)?? 12/10/2023 10:24 Lymph % 45.1 % (High)?? 12/10/2023 10:24 [place] % 8.7 % ()?? 12/10/2023 10:24 Eos % 4.5 % ()?? 12/10/2023 10:24 Baso % 0.8 % ()?? 12/10/2023 10:24 Imm Gran 0.3 % ()?? 12/10/2023 10:24 Abs. Imm Gran 0.0 k/mm3 ()?? 12/10/2023 10:24 ?? CHEM GENERAL Sodium 137 mmol/L ()?? 12/10/2023 10:24 Potassium 4.4 mmol/L ()?? 12/10/2023 10:24 Chloride 102 mmol/L ()?? 12/10/2023 10:24 Bicarbonate Level 24 mmol/L ()?? 12/10/2023 10:24 Anion Gap 11 ()?? 12/10/2023 10:24 Glucose Level 80 mg/dL ()?? 12/10/2023 10:24 Glucose, POC 80 mg/dL ()?? 12/10/2023 09:51 BUN 17 mg/dL ()?? 12/10/2023 10:24 Creatinine-Blood 0.81 mg/dL ()?? 12/10/2023 10:24 Estimated GFR Creatinine 113 ML/MIN/1.73 M2 ()?? 12/10/2023 10:24 Calcium 9.3 mg/dL ()?? 12/10/2023 10:24 Protein, Total 7.3 Gm/dL ()?? 12/10/2023 10:24 Albumin 4.2 Gm/dL ()?? 12/10/2023 10:24 AG Ratio 1.4 ()?? 12/10/2023 10:24 Alkaline Phosphatase 92 units/L ()?? 12/10/2023 10:24 AST (SGOT) 23 units/L ()?? 12/10/2023 10:24 ALT (SGPT) 11 units/L ()?? 12/10/2023 10:24 Bilirubin, Total 0.2 mg/dL ()?? 12/10/2023 10:24 Lactate 1.9 mmol/L ()?? 12/10/2023 10:24 ?? ENDOCRINE/TUMOR MARKER TSH 2.13 uIU/mL ()?? 12/10/2023 10:24 ?? TOXICOLOGY/TDM Ethanol, Serum or Plasma NONE DETECTED mg/dL ()?? 12/10/2023 10:24 Dilantin Level 23.0 mg/L (High)?? 12/10/2023 10:24 Valproic Level <2.8 mg/L (Low)?? 12/10/2023 10:24 ?? UA/URINALYSIS Appear/Color, Urine COLORLESS ()?? 12/10/2023 10:24 Specific [place], Urine 1.013 ()?? 12/10/2023 10:24 pH, Urine 8.0 ()?? 12/10/2023 10:24 Albumin, Urine NEGATIVE ()?? 12/10/2023 10:24 Glucose, Urine NEGATIVE ()?? 12/10/2023 10:24 Ketones, Urine NEGATIVE ()?? 12/10/2023 10:24 Bilirubin, Urine NEGATIVE ()?? 12/10/2023 10:24 Hemoglobin, Urine NEGATIVE ()?? 12/10/2023 10:24 Nitrite, Urine NEGATIVE ()?? 12/10/2023 10:24 Leukocyte, Urine NEGATIVE ()?? 12/10/2023 10:24 Urobilinogen NORMAL mg/dL ()?? 12/10/2023 10:24 WBC's, Urine <1 /HPF ()?? 12/10/2023 10:24 RBC's, Urine NONE SEEN /HPF ()?? 12/10/2023 10:24 Mucus SLIGHT /LPF ()?? 12/10/2023 10:24 ? Cardiology * Event Display: Cardiac Rhythm Strips Authored Date: * Event Display: Cardiac Rhythm Strips Authored Date: Hospital Progress note * Cole Cantu: PERFORM Event Display: Progress Note Hospital Authored Date: Patient: ??RAND WILKERSON ? Age:??43 Years?Sex:??Male?:??1980?? Chief Complaint/Reason for Consult coming from home. states he thinks he is going to have seziure. aura is metallic taste does not currently have that metallic taste. VNA administers meds and had todays seziure meds History of Present Illness Interval hx.??No button pushes. No myoclonus observed. this AM b/l shoulders feel weird -described further as tingling. Reports feeling as if he has extra strength . Review of Systems Denies MENCHACA, dizziness, vision changes, weakness, difficulty talking or swallowing Physical Exam Vitals & Measurements Vital Signs?? Temperature: 97.6 DegF (12/13/23 07:00:00) Temperature Route: Temporal (12/13/23 07:00:00) Pulse Rate: 56 bpm (12/13/23 07:00:00) Heart Rate Monitored: 66 bpm (12/12/23 18:00:00) Respiratory Rate: 16 br/min (12/13/23 09:49:00) Systolic Blood Pressure: 117 mm Hg (12/13/23 07:00:00) Diastolic Blood Pressure:??51 mm Hg??Low (12/13/23 07:00:00) Blood pressure sites: Arm, left (12/13/23 07:00:00) Pulse Pressure: 61 mm Hg (12/12/23 23:00:00) Oxygen Saturation: 96 % (12/13/23 07:00:00) Mode of Delivery (Oxygen): Room air (12/13/23 07:00:00) Early Warning Score: 2 (12/13/23 09:06:29) Intake?? Output?? Oral Fluids: 240 mL (08:00) Urine Voided: 310 mL (09:00) Gen: NAD, awake, alert HEENT: normocephalic, atraumatic.??No ptosis.??Nares patent. Mouth normal. Psych: not depressed or anxious Extremities: no edema Skin: warm and dry Neuro: Mental status is??intact, no deficits. Oriented to self, place, time, situation.?? Follows simple and complex commands. Speech slurred (missing teeth), occasional word finding difficulty- able to identify objects. Cranial Nerves: PERRL, EOMI without nystagmus, VFF. No??visual??extinction.??No ptosis.??Face appears symmetric with no drooping or weakness. Facial sensation intact. Tongue midline. Hearing intact to voice.??Shoulder shrug symmetric b/l. Motor: No pronator drift. Normal bulk and tone. No abnormal movements. 5/5 BUE.??5/5 BLE. Sensation: Intact light touch sensation bilaterally. No extinction to DSS. Decreased sensation BUE and BLE; BLE > BUE Coordination: No ataxia or dysmetria noted with finger to nose bilaterally. Gait not assessed. ? INTERICTAL EEG DESCRIPTION:?Cerebral electrical activity with the patient awake was characterized by a well organized background with a 9 Hz 10-20 uV posterior dominant reactive alpha rhythm. ??Frequent bursts of generalized spike wave at 4/sec, and polyspikes wave discharges with left and right fragments ??were seen up to 6 seconds. ??Generalized paroxysmal fast activity (GPFA) was seen. Lower voltage frontal beta activity was seen. ??Drowsiness was characterized by an increase in slow eye movements and a fragmentation of the alpha rhythm. ??Stage II sleep was recorded during which time synchronous and symmetric sleep spindles, vertex waves and K complexes were seen. ??Stage III sleep was seen with the expected increase in delta activity. ? ICTAL EEG AND VIDEO DESCRIPTION:?? Day # 1:?No button press events, no seizures. Day # 2:?No button press events, no seizures. ?? IMPRESSION:?The patient underwent 2 days of continuous halfway video EEG monitoring recorded with the patient awake, drowsy and asleep, during which time epileptiform activity and GPFA typical of a generalized epileptic diathesis such as JENNI were seen. No seizures or persistent focal asymmetries occurred. Assessment/Plan 43 year old male with a significant past medical hx of JENNI (Clobazam 15mg BID, Lamictal 300mg BID, Phenytoin 200am/300pm), alcohol and substance use d/o (reports 3 drinks per day, former use of cocaine and ecstasy), obesity, recent admissions for breakthrough seizures in the setting of medication noncompliance and also COVID infection who presented to the hospital complaints of breakthrough seizures. reportedly patient came in with increase in myoclonic activity, ED gave Ativan 1mg [id number] withsome improvement however patient remains with myoclonic twitching. Patient states that he has recently been compliant with all AEDs, but states that he has been experiencing an increase in myoclonic activity. Dilantin level came back (23.0), other AEDs still pending. On exam patient with myoclonic twitching of mostly Upper extremities and occasional blank stares once every minute. Patient is properly alert and oriented to person place and time, able to follow all commands and demonstrates full strength. ?? DDX: Myoclonic activity w/ brief staring spells VEEG day 1-2??epileptiform activity and GPFA typical of a generalized epileptic diathesis such as JENNI were seen. No seizures or persistent focal asymmetries occurred ?? Recommendations: -stop vEEG -??increase Clobazam from 15mg BID to 15 mg AM and 20 mg PM - Continue home Lamictal 300mg BID - Continue home Phenytoin 200am/300pm - Seizure precautions - Ativan 2mg for seizure activity >5min -follow up outpatient seizure clinic (request sent) ?? Neurology will sign off, thank you. Please reach out w/ any questions or concerns. ?? D/w Dr. Clayton and Dr. Baumann Problem List/Past Medical History Ongoing COPD without exacerbation COVID COVID-19 Obese class II Obesity Polysubstance abuse Hospital Medications Medications (18) Active SCHEDULED: (9) Clobazam 10 mg Tablet (clobazam 10 mg oral tablet) ??15 mg, By Mouth, 2 times a day Enoxaparin 40 mg Inj (Enoxaparin Inj) ??40 mg 0.4 mL, Subcutaneous Injection, Daily LamoTRIGINE 100 mg Tablet (LaMICtal 100 mg oral tablet) ??300 mg, By Mouth, 2 times a day NaCl 0.9% Flush 3ml (NaCL 0.9% Flush) ??3 mL, IV Push, Every 8 hours Olanzapine 5 mg Tablet (olanzapine 5 mg oral tablet) ??5 mg, By Mouth, Daily at bedtime Phenytoin 100 mg ER Capsule (Dilantin Capsule) ??200 mg, By Mouth, Daily in AM Phenytoin 100 mg ER Capsule (Dilantin Capsule) ??300 mg, By Mouth, Daily at bedtime Sertraline 50 mg Tablet (sertraline 50 mg oral tablet) ??50 mg, By Mouth, Daily Trazodone 50 mg Tablet (traZODone 50 mg oral tablet) ??50 mg, By Mouth, Daily at bedtime CONTINUOUS: (0) PRN: (9) Acetaminophen 325 mg Tablet (Acetaminophen Tablet) ??650 mg, By Mouth, Every 4 hours Dextromethorphan-Guaifenesin 20 mg-200 mg/10 mL Liqu UD (Robitussin DM Liquid) ??10 mL, By Mouth, Every 4 hours Docusate Sodium 100 mg Capsule (Docusate Sodium Capsule) ??100 mg 1 capsule, By Mouth, 2 times a day Lorazepam 2 mg Inj Syringe (Ativan Inj) ??2 mg, IV Push Slowly, Every 2 hours Melatonin 3 mg Tablet (Melatonin Tablet) ??3 [...] mg, Chew, 3 times a day Allergies cyclobenzaprine erythromycin??(rash) Patient Education Titles [employer] Ignite Patient Education - Clobazam?? Recent Lab Results No qualifying data available. * Forrest AVILA, Behzad Krishnamurthy: PERFORM Event Display: Progress Note [facility] Authored Date: Pt seen and examined and discussed with AP.?? Agree with above. * Misael Cruz MD: PERFORM Event Display: Progress Note [facility] Authored Date: [id number] INTRODUCTION: The patient is a 43 year old with a diagnosis of juvenile myoclonic epilepsy (JENNI) referred for a question of increased seizures. MEDICATIONS: Clobazam, lamictal, Dilantin, others. CONDITION OF RECORDING: The patient underwent 2 days of digitally recorded video EEG monitoring beginning on 12/11/2023 at 9:54:31 AM and ending on 12/13/2023 at 07:16:32 AM, recorded with the patientawake, drowsy and asleep, reviewed with longitudinal and coronal bipolar montages, as well as average referential and anterior temporal montages with all electrodes applied in accordance with the International 10-20 System. Seizure and spike detection software was utilized throughout the recording.A single channel EKG lead was recorded as well to help identify artifact. The entire record was reviewed with special attention to button presses and diary entries. INTERICTAL EEG DESCRIPTION: Cerebral electrical activity with the patient awake was characterized by a well organized background with a 9 Hz 10-20 uV posterior dominant reactive alpha rhythm. Frequent bursts of generalized spike wave at 4/sec, and polyspikes wave discharges with left and right fragments were seen up to 6 seconds. Generalized paroxysmal fast activity (GPFA) was seen. Lower voltagefrontal beta activity was seen. Drowsiness was characterized by an increase in slow eye movements and a fragmentation of the alpha rhythm. Stage II sleep was recorded during which time synchronous and symmetric sleep spindles, vertex waves and K complexes were seen. Stage III sleep was seen with the expected increase in delta activity. ICTAL EEG AND VIDEO DESCRIPTION: Day # 1: No button press events, no seizures. Day # 2: No button press events, no seizures. 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 No seizures or persistent focal asymmetries occurred. EEG CLASSIFICATION: Primary generalized epilepsy. COMMENT: None. * Iraida Singh RN: PERFORM, SIGN, VERIFY, MODIFY, SIGN Event Display: Progress Note Hospital Authored Date: Patient: RAND WILKERSON Age: 43 years Sex: Male : 1980 Associated Diagnoses: None Author: Iraida Singh RN Findings Narrative/Incidental Pt arrived to floor form [facility] at 2300. Pt is A&Ox4, speech difficult tounderstand at times d/t pt having no teets. LSCTA, + BS, abdomen SNT, continent of B&B. Pt on vEEG monitor with no seizure activity noted thus ar. Pt on tele SB inthe mid 50's. See CIS for full assessment details, Patientresting comfortably, bed low locked and alarmed, call light and personal itmens in reach ,POC ongoing. Consult note * Will MACKEY, Dillon Proctor: MODIFY, PERFORM Event Display: Consultation Note Authored Date: Patient: ??RAND WILKERSON ? Age:??43 Years?Sex:??Male?:??1980?? Chief Complaint/Reason for Consult coming from home. states he thinks he is going to have seziure. aura is metallic taste does not currently have that metallic taste. [facility]NA administers meds and had todays seziure meds History of Present Illness Rand is a 43 year old male with a significant past medical hx of JENNI (Clobazam 15mg BID, Lamictal 300mg BID, Phenytoin 200am/300pm), alcohol and substance??use d/o (reports 3 drinks per??day, formeruse of cocaine and ecstasy), obesity, recent admissions for breakthrough seizures in the setting ofmedication noncompliance and also COVID infection who presented to the hospital complaints of breakthrough seizures. reportedly patient came in with increase in myoclonic activity, ED gave Ativan [id number] with some improvement however patient remains with myoclonic twitching. ??Patient states that he has recently been compliant with all AEDs, but states that he has been experiencing an increase in myoclonic activity. Dilantin level came back (23.0),??other AEDs still pending.??On exam??patient with myoclonic twitching of mostly Upper extremities and occasional blank stares once every minute. Patient is properly alert and oriented to person place and??time, able to follow all commands anddemonstrates full strength without focal deficits. ?? Review of Systems says he has increase in twitching no further complaints Physical Exam Vitals & Measurements T:??97.6?F?? HR:??66??(Peripheral)?? RR:??18?? BP:??149/90?? SpO2:??98%? Neuro Exam ?? Mental Status: ?alert and oriented to person, place, month, and year ?fluent and appropriate speech, no dysarthria ?able to identify simple objects ?able to follow simple and 2 step commands Cranial nerves:?PERRL ?EOMI ?VFF ?equal light touch sensation ?no facial asymmetry or droop no ptosis noted bilaterally muscle strength: ?appropriate muscle tone and bulk ?Myoclonic twitching and staring spells occurring approximately once every 1minute. ?5/5 UE ?5/5 LE Sensation ?equal light touch sensation UE and LE Cerebellum ?Finger to nose intact bilaterally?Gait not assessed ?? Assessment/Plan Rand is a 43 year old male with a significant past medical hx of JENNI (Clobazam 15mg BID, Lamictal 300mg BID, Phenytoin 200am/300pm), alcohol and substance??use d/o (reports 3 drinks per??day, formeruse of cocaine and ecstasy), obesity, recent admissions for breakthrough seizures in the setting ofmedication noncompliance and also COVID infection who presented to the hospital complaints of breakthrough seizures. reportedly patient came in with increase in myoclonic activity, ED gave Ativan [id number] with some improvement however patient remains with myoclonic twitching. ??Patient states that he has recently been compliant with all AEDs, but states that he has been experiencing an increase in myoclonic activity. Dilantin level came back (23.0),??other AEDs still pending.??On exam??patient with myoclonic twitching of mostly Upper extremities and occasional blank stares once every minute. Patient is properly alert and oriented to person place and??time, able to follow all commands anddemonstrates full strength without focal deficits. ?? DDX: Myoclonic activity w/ brief staring spells ?? Recommendations: - admit to [facility] (pending bed availability) - vEEG - Continue home Clobazam 15mg BID - Continue home Lamictal 300mg BID - Continue home Phenytoin 200am/300pm - Follow up on AED levels - Seizure precautions - Ativan 2mg for seizure activity >5min ?? Neurology will continue to follow Discussed w/ Dr. Cruz and Dr. Flores Problem List/Past Medical History Ongoing COPD without exacerbation COVID COVID-19 Obese class II Obesity Polysubstance abuse Procedure/Surgical History No qualifying data available. Home Medications Albuterol/Ipratropium: 1 puffs, Inhalation, 4 times a day Clobazam: 15 mg = 1.5 tablet, By Mouth, 2 times a day Folic Acid: 1 mg = 1 tablet, By Mouth, Daily Ibuprofen: 600 mg, By Mouth, 3 times a day with meals Lamotrigine: 2 tablets, By Mouth, 2 times a day Melatonin: 5 mg = 1 tablet, By Mouth, Daily at bedtime Olanzapine: 5 mg = 1 tablet, By Mouth, Daily at bedtime Phenytoin: 200 mg, By Mouth, Daily in AM Phenytoin: 300 mg, By Mouth, Daily at bedtime Polyethylene Glycol [...] No. Family History No family history recorded. * Misael Cruz MD: PERFORM Event Display: Consultation Note Authored Date: Attending PA/ENDBAND SIZER Attestation:??I have reviewed the patient's medical history, findings on examination, diagnosis and treatment plan as documented in the PA/ENDBAND SIZER note. Case and its management discussed with PA/ENDBAND SIZER. ?? description of seizures cs jenni but also supplementary motor szs. Note * Joseluis Thorpe RN: PERFORM Event Display: Discharge/Transfer Note Hospital Authored Date: [id number] Nursing Discharge Note Entered On: 12/13/2023 13:19 EDT Performed On: 12/13/2023 13:19 EDT by Joseluis Thorpe RN Nursing Discharge Note 2 Discharge Time : 12/13/2023 13:19 EDT Discharge Level of Care at Discharge : Home/Custodial/Foster Care Patient Left Unit Via : Ambulatory Patient Accompanied Off Unit with : Responsible adult DC Instructions Provided & Signed by Pt : Yes Patient Understands D/C Instructions : Yes Patient Instructions Discharge Signed : Yes Did Pt have Specialty Bed or Wound Vac : No Joseluis Thorpe RN - 12/13/2023 13:19 EDT * Pastor AVILA, Gerald: PERFORM Event Display: Discharge/Transfer Note Hospital Authored Date: [id number] Patient: ??RAND WILKERSON ? Age:??43 Years?Sex:??Male?:??1980?? Patient Information Discharge Location: [facility] Primary Care Physician: Matthieu Buenrostro MD Admit Date/Time: 12/10/23 12:42 Discharge Date:??12/13/2023 11:12 Discharge Disposition Discharge Disposition: Home: No Services Discharge Diagnosis Juvenile myoclonic epilepsy (G40.B09) Bipolar disorder (F31.9) COVID-19 (U07.1) _ Discharge Medications Albuterol/Ipratropium (Combivent Respimat 20 mcg-100 mcg/inh inhalation aerosol)?1?puff(s)?Inhalation?4 times a day Clobazam (clobazam 10 mg oral tablet)?See Instructions?Take 15 mg in a.m. and 20 mg in p.m. (Dose increased from 15 mg twice a day) Folic Acid (folic acid 1 mg oral [...] 50 mg oral tablet)?50?Milligram?1?tablet?By Mouth?Daily at bedtime Medications Started None Medications Discontinued None Doses Changed Increased clobazam from 15 mg BID to 15 mg AM and 20 mg PM.?? Allergies Allergies ?(Active and Proposed Allergies Only) cyclobenzaprine? (Severity: Unknown severity, Onset: Unknown) erythromycin? (Severity: Unknown severity, Onset: Unknown) ?Reactions: rash ? PCP Follow-Up/Heads-Up Follow up clinically post hospitalization Objective Bipolar disorder ??(F31.9) COVID-19 ??(U07.1) Juvenile myoclonic epilepsy ??(G40.B09) ?? 66 y/o M w Obesity, COPD,??JENNI (on clobazam, Lamictal and phenytoin), substance use disorder (alcohol, cocaine and ecstasy), Bipolar disorder, and recent COVID 19 infection who presented with breakthrough seizure. ?? Juvenile myoclonic epilepsy (G40.B09):??JENNI (on clobazam, Lamictal and phenytoin) Patient had recurrent hospital admissions in the last month with seizure breakthrough: 11/18-11/20: Clobazam increased switched to 5 mg in AM and 10 mg in PM. 11/24-11/25: Clobazam increased to 10 mg BID. 12/01-12/03: Clobazam increased to 15 mg BID Pt presented with??increase in myoclonic activity ?? Resume clobazam, Lamictal??and phenytoin.?? 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 No seizures or persistent focal asymmetries occurred. ?? Video EEG reviewed by neurology team. Recommended increase clozapine to??50 mg in morning and 20 mg in the evening. Continue rest of the??AEDs??at the home doses. Patient to follow-up in the seizure clinic as an outpatient. ?? COVID-19 (U07.1):??Tested positive on 12/01 - asymptomatic - on room air.?? Isolation??completed. ?? Bipolar disorder (F31.9):??Resume??olanzapine, Zoloft, trazodone. ?? Patient seen and examined at bedside. Denies any acute complaint this time. He wishes to go home today. ?? Gen: AAO*3; RS: CTA b/l; CVS: regular; Abd: Soft Non tender, non distended; Neuro AAO*3, ambulatory Measurements?? Height: 182 cm (12/10/23) Weight: 117.9 kg (12/10/23) Dry Weight: 117.9 kg (12/10/23) Body Mass Index:??35.59 kg/m2??Critical (12/10/23) ? Vital Signs?? Temperature: 97.6 DegF (12/13/23 07:00:00) Temperature Route: Temporal (12/13/23 07:00:00) Pulse Rate: 56 bpm (12/13/23 07:00:00) Heart Rate Monitored: 66 bpm (12/12/23 18:00:00) Respiratory Rate: 16 br/min (12/13/23 09:49:00) Systolic Blood Pressure: 117 mm Hg (12/13/23 07:00:00) Diastolic Blood Pressure:??51 mm Hg??Low (12/13/23 07:00:00) Blood pressure sites: Arm, left (12/13/23 07:00:00) Pulse Pressure: 61 mm Hg (12/12/23 23:00:00) Oxygen Saturation: 96 % (12/13/23 07:00:00) Mode of Delivery (Oxygen): Room air (12/13/23 07:00:00) Early Warning Score: 2 (12/13/23 09:06:29) ? Consultants Misael Cruz Patient Education Titles WebMD Ignite Patient Education - Clobazam?? Follow-Up Appointments Added Follow Up ?Time Frame ?Comments [facility]?1 to 2 weeks Matthieu Name?2 to 3 weeks Post Discharge Care Discharge ?12/13/23 11:09:00 EDT Discharge Prescriptions ?ePrescribed, 12/13/23 11:09:00 EDT 36??minutes spent on discharge * Joseluis Thorpe RN: PERFORM Event Display: Patient Education/Instruction Authored Date: Inpatient Adult Discharge Instructions. [address] [address] Name: RAND WILKERSON : 1980?? Visit: 12/10/2023 12:42?? Current Date: 12/13/2023 11:17 ?? Account: [id number]?? Inpatient Adult Discharge Instructions We would like [...] and their families. Surveys are administered by [employer] ?? If further treatment with your primary care physician or another doctor is recommended, it is important for you to keep the appointment. Call your primary care physician or return to the Emergency Department immediately if your condition worsens, fails to improve, or new symptoms develop. If you need to find a doctor, you can call [facility] Link for a referral at [phone] or toll free at [phone] or log in to [email or web address].. ?? [facility], in keeping with [facility] guidance, no longer requires face masks [...] a health care parvin of your choosing. vufind is a website that allows you to securely view your medical information including your hospital discharge summary, office visit summaries, medications and follow-up visits. You can also request appointments, renew medications, and request access to your medical information using a health care parvin of your choosing, or just ask a question. You can enroll at [email or web address] or register during your next office visit. You have been discharged from [facility], Patient Care Unit: D5A??. If you have any questions regarding these instructions, including results of studies pending, afteryou leave, please call us and we will be happy to assist you 28/09. [facility] Your Care Team Attending Physician Gerald Baumann MD?? Consulting Providers Gerald Baumann MD?? Discharging Providers Gerald Baumann MD Reason for Your Visit coming from home. states he thinks he is going to have seziure. aura is metallic taste does not currently have that metallic taste. [facility] administers meds and had todays seziure meds?? Your Diagnosis Bipolar disorder COVID-19 Juvenile myoclonic epilepsy Tests Performed Below is a partial list of the tests performed during your hospitalization. You may have had other tests and procedures not included in this list. Please discuss all test results with your provider. Alcohol Level Basic Metabolic Panel CBC CBC w/ Differential Comprehensive Metabolic Panel Dilantin Level GLUCOSE POC Lactic Acid Level Phenytoin Free Level TSH with T4 Reflex (Adults Only) Urinalysis w/hold for Urine Culture Valproic Acid Level Add On Lab Order?? Basic Metabolic Panel?? CBC?? CBC w/ Differential?? Comprehensive Metabolic Panel?? Ethanol Level (Alcohol Level)?? Glucose POC?? Lactic Acid Level?? Lamotrigine Level (LAMOTRIGINE)?? Phenytoin Free Level?? Phenytoin Total Level (Dilantin Level)?? TSH with T4 Reflex (Adults Only)?? Urinalysis w/hold for Urine Culture?? Valproic Acid Level?? Primary Care Provider Name Matthieu AVILA? Advance Directive Health Care Proxy on File Yes - Health Care Proxy Yes - MOLST Discharge Vitals Temperature: 97.6 DegF Height: 182 cm Pulse Rate: 56 bpm Weight: 117.9 kg Respiratory Rate: 16 br/min Body Mass Index:??35.59 kg/m2??Critical Systolic Blood Pressure: 117 mm Hg Body surface area: 2.44 Diastolic Blood Pressure:??51 mm Hg??Low ?? Oxygen Saturation: 96 % ?? Studies Pending All studies ordered during this hospital stay have been completed unless listed below. Please discuss all pending results with your provider listed above in these instructions. ?? Add On Lab Order?? Lamotrigine Level (LAMOTRIGINE)?? What to do next Instructions From Your Doctor ?? Orders? 12/13/23 11:09:00 EDT?? Prescriptions??, ??12/13/23 11:09:00 EDT?? You Need to Schedule the Following Appointments Follow Up with??[facility] When:??Within 1 to 2 weeks Where: [address] [facility], 3rd Floor, [address] [place] [address] (1) Follow Up with??Matthieu Name When:??Within 2 to 3 weeks Where: [address] [place] [address] [facility] (1) Discharge Medications RAND WILKERSON :1980 Visit Date:12/10/2023 Medications: Please continue your medications until treatment is completed or stopped by your provider. Medications not listed below should be discontinued. Discuss any questions related to medications with your provider. What How Much When Instructions Next Dose Changed Clobazam (clobazam 10 mg oral tablet) See instructions Take 15 mg in a.m. and 20 mg in p.m. (Dose increased from 15 mg twice a day) ?? Pickup at [facility] Unchanged Albuterol/ Ipratropium (Combivent Respimat 20 mcg-100 mcg/ inh inhalation aerosol) 1 puff(s) Inhalation 4 times a day Unchanged Folic Acid (folic acid 1 mg oral tablet) 1 tab(s) Oral Daily Unchanged Ibuprofen (Motrin Tablet) 600 Milligram Oral 3 times a day with meals Unchanged Lamotrigine (lamotrigine 150 mg oral tablet) 2 tablets Oral Twice a day Unchanged Melatonin (melatonin 5 mg oral tablet) 1 tab(s) Oral Daily at Bedtime Unchanged Olanzapine (olanzapine 5 mg oral tablet) 1 tab(s) Oral Daily at Bedtime Unchanged Phenytoin (phenytoin 200 mg oral capsule, extended release) 200 Milligram Oral Daily in the morning Unchanged Phenytoin (phenytoin 300 mg oral capsule, extended release) 300 Milligram Oral Daily at Bedtime Unchanged Polyethylene Glycol 3350 (MiraLax oral powder for reconstitution) 17 gram Oral Daily Unchanged Sertraline (sertraline 50 mg oral tablet) 1 tab(s) Oral Daily Unchanged Thiamine (Vitamin B1 100 mg oral tablet) 1 tab(s) Oral Daily Unchanged Trazodone (traZODone 50 mg oral tablet) 1 tab(s) Oral Daily at Bedtime Pharmacy Information [facility]: [address] [place], [place] [id number] [phone] Prescription Given During Visit Clobazam (clobazam 10 mg oral tablet) - , # 105 tablet, 0 Refills, Take 15 mg in a.m. and 20 mg in p.m. (Dose increased from 15 mg twice a day), [facility], [address] [place] [id number]?? Laboratory Results Below is a partial list of the most recent Laboratory test results done prior to this discharge. You may have had other tests and procedures not included in this list. Please discuss all test resultswith your provider. Est Creatinine Clearance - 113.63 mL/min (12/12/2023) Alcohol Level (12/10/2023) ???Ethanol, Serum or Plasma - NONE DETECTED Basic Metabolic Panel (12/12/2023) ???Sodium - 138 mmol/L???Potassium - 4.6 mmol/L???Chloride - 103 mmol/L???Bicarbonate Level - 24 mmol/L???Anion Gap - 11???Glucose Level - 106 mg/dL???BUN - 19 mg/dL???Creatinine-Blood - 0.92 mg/dL???Estimated GFR Creatinine - 107 ML/MIN/1.73 M2???Calcium - 8.7 mg/dL CBC (12/12/2023) ???WBC - 4.8 k/mm3???RBC - 4.33 m/mm3???Hgb - 13.3 Gm/dL???Hct - 40.4 %???MCV - 93.3 femtoliters???MCH - 30.7 pg???MCHC - 32.9 Gm/dL???Platelet Count - 186 k/mm3???RDW-SD - 45.7 femtoliters???MPV - 10.9 femtoliters???Nucleated RBC (Automated) - 0.0 #/100 WBC'S???Abs. NRBC - 0.0 k/mm3 CBC w/ Differential (12/10/2023) ???WBC - 3.8 k/mm3???RBC - 4.50 m/mm3???Hgb - 13.7 Gm/dL???Hct - 41.1 %???MCV - 91.3 femtoliters???MCH - 30.4 pg???MCHC - 33.3 Gm/dL???Platelet Count - 186 k/mm3???RDW-SD - 46.0 femtoliters???MPV - 10.5 femtoliters???Nucleated RBC (Automated) - 0.0 #/100 WBC'S???Abs. NRBC - 0.0 k/mm3???Abs. Neut - 1.6 k/mm3???Abs. Lymph - 1.7 k/mm3???Abs. [place] - 0.3 k/mm3???Abs. Eo - 0.2 k/mm3???Abs. Baso - 0.0 k/mm3???Neut % - 40.6 %???Lymph % - 45.1 %???[place] % - 8.7 %???Eos % - 4.5 %???Baso % - 0.8 %???Imm Gran - 0.3 %???Abs. Imm Gran - 0.0 k/mm3 Comprehensive Metabolic Panel (12/10/2023) ???Sodium - 137 mmol/L???Potassium - 4.4 mmol/L???Chloride - 102 mmol/L???Bicarbonate Level - 24 mmol/L???Anion Gap - 11???Glucose Level - 80 mg/dL???BUN - 17 mg/dL???Creatinine-Blood - 0.81 mg/dL???Estimated GFR Creatinine - 113 ML/MIN/1.73 M2???Calcium - 9.3 mg/dL???Protein, Total - 7.3 Gm/dL???Albumin - 4.2 Gm/dL???AG Ratio - 1.4???Alkaline Phosphatase - 92 units/L???AST (SGOT) - 23 units/L???ALT (SGPT) - 11 units/L???Bilirubin, Total - 0.2 mg/dL Dilantin Level (12/10/2023) ???Dilantin Level - 23.0 mg/L GLUCOSE POC (12/10/2023) ???Glucose, POC - 80 mg/dL Lactic Acid Level (12/10/2023) ???Lactate - 1.9 mmol/L Phenytoin Free Level (12/10/2023) ???Phenytoin Level, Free - 2.1 TSH with T4 Reflex (Adults Only) (12/10/2023) ???TSH - 2.13 uIU/mL Urinalysis w/hold for Urine Culture (12/10/2023) ???Appear/Color, Urine - COLORLESS???Specific [place], Urine - 1.013???pH, Urine - 8.0???Albumin, Urine - NEGATIVE???Glucose, Urine - NEGATIVE???Ketones, Urine - NEGATIVE???Bilirubin, Urine - NEGATIVE???Hemoglobin, Urine - NEGATIVE???Nitrite, Urine - NEGATIVE???Leukocyte, Urine - NEGATIVE???Urobilinogen - NORMAL? ?WBC's, Urine - <1 /HPF? ?RBC's, Urine - NONE SEEN? ?Mucus - SLIGHT? ?Hold Urine Culture - Testing available 48 hours from time of collection. Valproic Acid Level (12/10/2023) ? ?Valproic Level - <2.8 mg/L You will be contacted within 72 hours with your results. Allergies (NKA means No Known Allergies) cyclobenzaprine erythromycin??(rash) Problems Active Problems??(6) COPD without exacerbation?? COVID?? COVID-19?? Obese class II?? Obesity?? Polysubstance abuse?? Education Materials Below is the list of Educational Leaflet Providered with your Discharge Instructions. WebMD Ignite Patient Education - Clobazam?? Valuables and Belongings I fully understand and agree that [facility] accepts no responsibility for all my [...] Review of Valuable and Belonging List: With patient, With witness Date for Pt to Sign Valuables/Belongings: 12/12/23 23:48:00 ?? Other Discharge Information ? Pulmonary Rehab [...] are strongly encouraged to quit. Please call [facility] at [phone] or [phone]) or log in to [email or web address] for referrals to smoking cessation programs. ?? [address] Suicide & Crisis Lifeline is available 28/09 if you or someone you know needs to find a reason to keep living. By calling 908 you'll be connected to a skilled, trained counselor at a crisis center in your area. INPATIENT DISCHARGE INSTRUCTIONS SIGNATURE PAGE RAND WILKERSON Location:[facility] Registration Date and Time:12/10/2023 12:42 EDT Primary Care Physician: Matthieu Buenrostro MD, Attending Physician: Gerald Baumann MD, I SHILOHSHEELA RAND, have received the above patient education materials/instructions and have verbalized understanding. If ambulance or transport services are being used I further acknowledge being given a choice of service. ?? If you need to contact me, please call me at this number: . 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 [id number] Clobazam Brand Name(s): Onfi??, Sympazan??; also available [...] 2 years of ageand older who have Facundo-Gastaut syndrome (a disorder that causes seizures and [...] not place the syringe parts in the registered dental hygienist. To take the film, follow these steps: [...] doctor or pharmacist will give you the french binder's patient information sheet (Medication Guide) when you begin treatment with clobazam and each time you refill your prescription. Read the information carefully and ask your doctor or pharmacist if you have any questions. You can also visit the Food and Drug Administration (FDA) website (https://www.fda.gov/Drugs/DrugSafety/xsd620532.htm) or the french binder's website to obtain the Medication Guide. Are [...] and out of their sight and reach. [email or web address]://www.[email or web address].org Unneeded medications should be disposed of in [...] of all of the prescription and nonprescription ([id number]) medicines you are taking, as well as [...] or pharmacist about specific clinical use. The [place] [employer] represents that the information provided hereunder was formulated with a reasonable standard of care, and in conformity with professional standards in the field. The [place] [employer] makes no representations or warranties, express or implied, including, but not limited to, any implied warranty of merchantability and/or fitness for a particular purpose, with respect to such information and specifically disclaims all such warranties. Users are advised that decisions regarding drug therapy are complex medical decisions requiring the independent, informed decision of an appropriate health childcare center director, and the information is provided for informational purposes only. The entire monograph for a drug should be reviewed for a thorough understanding of the drug's actions, uses and side effects. The [place] [employer] does not endorse or recommend the use of any drug.The information is not a substitute for medical care. AHFS?? Patient Medication Information???. ?? Copyright, 2023. The [place] [employer]??, [address], [address], [place], [place]. All Rights Reserved. Duplication for commercial use must be authorized by [facility]. Selected Revisions: February 19, 2023. AHFS?? Patient Medication Information???. ?? Copyright, 2023 ?? Patient Care team information Care Team Personnel Name: Gus Mcgraw RN Position: [facility] RN Member Role: Primary Care Nurse Name: Patience Mcpherson RN Position: S RN Member Role: Primary Care Nurse Name: Therese Gross RN Position: [facility] RN Member Role: Primary Care Nurse Name: Isadora Rice RN Position: [facility] RN Member Role: Primary Care Nurse Name: Joseluis Thorpe RN Position: [facility] RN Member Role: Primary Care Nurse Name: Stas Erwin RN Position: S RN Member Role: Primary Care Nurse Name: Valencia Fisher Position: [facility] RN Magy Member Role: Primary Care Nurse Name: Angelika Gu RN Position: [facility] RN Member Role: Primary Care Nurse Name: Melanie Sainz RN Position: [facility] RN Member Role: Primary Care Nurse Name: Kavita Polo NP Position: [facility] Associate Professional Member Role: Primary Care Nurse Address: Address: [address] [place] [address]- [place] Name: Beau Rhoades RN Position: S RN Member Role: Primary Care Nurse Name: Matthieu Buenrostro MD Position: S Outreach Member Role: PCP Address: Address: [address] [place] [address]- [place] Name: See Chavez RN Position: S RN Member Role: Primary Care Nurse Name: Myke Mcfadden RN Position: S RN Member Role: Primary Care Nurse Name: Monika Marquez RN Position: [facility] RN Member Role: Primary Care Nurse Name: Elaine Reis RN Position: S RN Member Role: Primary Care Nurse Name: Clay Quiñonez RN Position: [facility] RN Member Role: Primary Care Nurse Name: Veronika Dinero LPN Position: [facility] RN Member Role: Primary Care Nurse Name: Paul Ruiz RN Position: [facility] RN Member Role: Primary Care Nurse Care Team Related Persons Name: GIRON JEANNE Address: home [address] [place] [address] Name: CHARITO DOOLEY Address: home [address] [place] [address]
--- OUTSIDE RECORDS SUMMARY | 2024-02-03 15:00 | XMS_ITS | Continuity of Care Document ---
Author Organization [facility] Address [address] [place] [id number]- Care Team Providers Care Merchandise Examiner Name Role Phone Not on Staff, PCP Primary Care Physician Unavail able Encounter [facility] Date(s): 12/16/23 - 12/19/[address] [id number] Discharge Disposition: A-D/C Home Attending Physician: Marcelle Whaley MD Admitting Physician: Jeremy Solorzano MD Referring Physician: Not on Staff, Referring MD Allergies, Adverse Reactions, Alerts Substance Reaction Severity Status cyclobenzaprine Active erythromycin rash Active Immunizations Given and Recorded Vaccine Date Status Refusal Reason tetanus/diphtheria/pertussis, acel(Tdap) 07/13/20 Recorded tetanus/diphtheria/pertussis, acel(Tdap) 12/23/09 Recorded Medications clobazam 10 mg oral tablet = 20 mg, By Mouth, 2 times a day, 0 Refills, Maintenance, 12/19/23 10:20:00 EDT, Tablet, Partial fill upon patient request if the prescription is for a schedule II opioid drug. Start Date: 12/19/23 Status: Ordered cloBAZam 20 mg oral tablet 1 tablet [...] 03/31/21 12:38:00 EST, Route to Pharmacy Electronically, [facility], Partial fill upon [...] Exam Date Time Procedure Performing Provider Status 12/15/23 10:[address] Head/Brain W/O Contrast Enrique Rodriguez; Auth (Verified) Notes: (CT Head/Brain W/O Contrast) Reason For Exam: Brain mass or lesion;Other: RESULT: CT Head/Brain W/O Contrast CT Head/Brain W/O Contrast Hx of Present Illness: Pt sent to ED for increased seizure activity today. Pt awake and alert upon initial assessment. Pt using the phone on initial contact and shook his hands in the air then told person on phone he would call back. Sts has diff breathing, SI plan slit throat ; Reason: Other:; Brain mass or lesion; Clinical Question(s): Hematoma. TECHNIQUE: Incremental CT without contrast through the head was formatted in axial and coronal plane. Weight-based protocol using automatic tube modulation was performed to optimize scan parameters. COMPARISON: 12/02/2023. FINDINGS: BRAIN and EXTRA-AXIAL SPACES: No parenchymal hemorrhage, midline shift or mass effect. Luke-white matter differentiation is well preserved. No acute infarct. Ventricles, sulci and basilar cisterns are age appropriate with a megacisterna magna again noted. No white matter lesions. No subarachnoid hemorrhage, subdural or epidural collections. CALVARIUM, SKULL BASE AND SOFT TISSUES: No fractures or suspicious bony lesions. Moderate mucosal thickening along the floor of the bilateral maxillary sinuses and throughout the bilateral mastoid air cells largely unchanged. Otherwise included paranasal sinuses and mastoid air cells are clear. Visualized orbits and globes are intact. The extracranial soft tissues are unremarkable. IMPRESSION: No acute process. WSN: [id number] Ordering Physician: Rand Franco Dictated By: Rafael Lester MD Dictated Date/Time: 12/15/23 10:46 p Reviewed By: Rafael Lester MD Signed By: Rafael Lester MD Signed Date/Time: 12/15/23 10:46 pm Transcribed By: JOJO Transcribed Date/Time: 12/15/23 10:43 pm Vital Signs Most recent to oldest [Reference Range]: 1 2 3 Height 180 cm (12/19/23 3:34 AM) 180 cm (12/19/23 12:13 AM) 180 cm (12/18/23 8:34 PM) Weight 115 kg (12/16/23 2:02 PM) Oxygen Saturation [94-100 %] 97 % (12/19/23 11:00 AM) 96 % (12/19/23 7:00 AM) 95 % (12/19/23 3:34 AM) Pulse Rate [55-90 bpm] 62 bpm (12/19/23 11:00 AM) 57 bpm (12/19/23 7:00 AM) 56 bpm (12/19/23 3:34 AM) Body Mass Index [18.5-24.99 kg/m2] 35.49 kg/m2 *>HHI* (12/16/23 2:02 PM) Blood Pressure [90-138/55-84 mm Hg] 125/60mm Hg (12/19/23 11:00 AM) 121/73mm Hg (12/19/23 7:00 AM) 105/52mm Hg (12/19/23 3:34 AM) Respiratory Rate [16-30 br/min] 18 br/min (12/19/23 11:00 AM) 57 br/min *H* (12/19/23 7:00 AM) 18 br/min (12/19/23 7:00 AM) Temperature [96.8-100.4 DegF] 97.3 DegF (12/19/23 11:00 AM) 96.2 DegF *L* (12/19/23 7:00 AM) 97.9 DegF (12/19/23 3:34 AM) Liters per Minute 2 L/min (12/16/23 10:23 AM) 2 L/min (12/16/23 7:32 AM) 2 L/min (12/16/23 5:34 AM) Mode of Delivery (Oxygen) Room air (12/19/23 11:00 AM) Room air (12/19/23 7:00 AM) Room air (12/19/23 3:34 AM) Blood pressure sites Arm, left (12/19/23 11:00 AM) Arm, left (12/19/23 7:00 AM) Arm, right (12/19/23 3:34 AM) Temperature Route Temporal (12/19/23 11:00 AM) Temporal (12/19/23 7:00 AM) Oral (12/19/23 3:34 AM) Dry Weight 115.3 kg (12/16/23 2:02 PM) Social History Social History Type Response Smoking Status 5-9 cigarettes (betw een 1/4 to 1/2 pack)/day in last 30 days; Interested in cessation: No entered on: 08/17/22 Sex Admission evaluation note * Jeff AVILA, Kush: PERFORM Event Display: Admission Note Authored Date: [id number] Patient: ??RAND WILKERSON ? Age:??43 Years?Sex:??Male?:??1980?? Chief Complaint/Reason for Consultation Breakthrough seizure History of Present Illness The patient is a 43 years old male with past medical history of recurrent epilepsy, bipolar disorder presented to ER with a chief complaint of breakthrough seizure.?? Most of the history is obtained from ER record as patient is slightly altered and unable to provide full history. ? As per ER note, patient has been having multiple seizures today and therefore he was brought to theER by his family.?? Patient told me that he is in the hospital because he has epilepsy.?? Patient was able to tell me his name and follows all commands but unable to tell me the details of his seizure and how many seizures he had.?? Patient was also able to tell me that he quit alcohol intake but was unable to tell me when was his last alcohol drink. ?? In ER, patient apparently had 2 more seizures and therefore he was admitted for further management. ? During my interview, patient noticed to have twitching of his bilateral arms and face that was ultimately followed by full-blown tonic-clonic seizure that was aborted after 2 mg IV Ativan. ? To note, patient had multiple admission recently due to breakthrough seizures and on last admission, dose of close clonazepam was increased. Review of Systems Review of system is limited due to underlying patient's mental??status Objective ? Vital Signs?? Temperature: 97.9 DegF (12/16/23 04:14:00) Temperature Route: Axillary (12/16/23 04:14:00) Pulse Rate: 74 bpm (12/16/23 04:14:00) Respiratory Rate: 22 br/min (12/16/23 04:14:00) Systolic Blood Pressure: 113 mm Hg (12/16/23 04:14:00) Diastolic Blood Pressure: 73 mm Hg (12/16/23 04:14:00) Blood pressure sites: Arm, left (12/15/23 20:18:00) Mean Arterial Pressure: 88 mm Hg (12/15/23 20:18:00) Pulse Pressure: 40 mm Hg (12/16/23 04:14:00) Oxygen Saturation: 97 % (12/16/23 04:14:00) Liters per Minute: 2 L/min (12/16/23 04:14:00) Mode of Delivery (Oxygen): Nasal cannula (12/16/23 04:14:00) Early Warning Score: 4 (12/16/23 04:14:58) ? Physical Exam Constitutional:Awake Head: Normocephalic. ?? Eyes: Pupils are equal, round and reactive to light. Extraocular muscles intact. No pallor or scleral icterus ?? Ear, Nose and Throat: mucous membranes moist. Ears and nose - no obvious deformities. Trachea midline. ?? Neck: Supple, Full range of motion.No JVD or bruits. Respiratory:??Clear to auscultation. No wheezing or rhonchi.??No use of accessory muscles. No tactile fremitus.?? Cardiovascular:??PMI not visible. S1 S2 regular. No murmurs, rubs or gallops. Gastrointestinal:??Abdomen soft, non-tender, non-distended. Normal bowel sounds. No pulsatile mass.No hepatosplenomegaly. Genitourinary:??No costovertebral angle tenderness. Extremities: No lower extremity pitting edema. No cyanosis or clubbing. Neurologic:??Patient awake, follows all the commands, able to??answer??some questions in 1 or 2 words, oriented to self??and place but unable to tell me month or year.?? Moves all??extremities spontaneously Skin:??No rash.?? Musculoskeletal:??No gross deformities on inspection. Heme/Lymphatics:??Palpation of neck reveals no swelling or tenderness of neck nodes.?? Psychiatric: Normal mood and affect. Assessment/Plan Diagnoses 1. ??Breakthrough seizure ??(G40.919) 2. 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 ??Acute metabolic encephalopathy ??(G93.41) 4. ??Bipolar disorder ??(F31.9) ?? Assessment:??The patient is a 43 years old male who is admitted breakthrough seizure ?? Breakthrough seizure (G40.919):??Patient had history of myoclonic epilepsy??and possible generalized??seizure who presented to ER with multiple seizures at home Patient had multiple admission??recently with??similar presentation and recently??dose of?clobazam was increased ?? In ER, patient apparently had 2 more seizures that aborted on its own and 38 seconds During my eval, patient is oriented to self and place, follows commands, able to??give 1-2 words answers,??noticed to have myoclonic jerks of upper extremities and face??that was followed by a full-blown??tonic-clonic seizure that was aborted with 2 mg Ativan Labs showed normal sodium, normal magnesium level, normal calcium level U-Tox only possible benzodiazepine, negative for any other substance, alcohol level negative CT head negative, UA negative Dilantin level is 21.2,??other levels of AEDs pending IV Ativan as needed for seizure Resume home medicine clobazam, lamotrigine??sodium 1 mg twice daily,??phenytoin 200 mg daily and 3000mg at bedtime Neurology consulted,??will follow recommendations ?? Myoclonic epilepsy (G40.409):??Management as above ?? Acute metabolic encephalopathy (G93.41):??Etiology:??Likely postictal state Patient apparently??had 2 mostly in the ER??and as per nursing report, patient was??jumping out of bed??and therefore he was put on restraint On my eval, patient was found to have myoclonic twitches of upper extremities??followed by??generalized tonic-clonic seizure??that was aborted by 2 mg Ativan Currently, patient postictal We will monitor neurological status ? Bipolar disorder (F31.9):??Resume home meds olanzapine, sertraline ? 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 VTE Prophylaxis:??Lovenox ?VTE Prophylaxis Assessment:??VTE Prophylaxis Ordered ?? Discharge Planning:??Pending clinical course ?? Ongoing Medical Necessity:??Breakthrough seizure ?? Code Status:??Full code?Order Code Status:??Code Status Ordered ? Date of service: December 16, 2023 ? Histories Allergies Allergies ?(Active and Proposed [...] Recent Labs BLOOD COUNT & DIFF WBC 4.9 k/mm3 ()?? 12/15/2023 22:12 RBC 4.11 m/mm3 (Low)?? 12/15/2023 22:12 Hgb 12.6 Gm/dL (Low)?? 12/15/2023 22:12 Hct 38.8 % (Low)?? 12/15/2023 22:12 MCV 94.4 femtoliters (High)?? 12/15/2023 22:12 MCH 30.7 pg ()?? 12/15/2023 22:12 MCHC 32.5 Gm/dL (Low)?? 12/15/2023 22:12 Platelet Count 161 k/mm3 ()?? 12/15/2023 22:12 RDW-SD 47.4 femtoliters (High)?? 12/15/2023 22:12 MPV 10.8 femtoliters ()?? 12/15/2023 22:12 Nucleated RBC (Automated) 0.0 #/100 WBC'S ()?? 12/15/2023 22:12 Abs. NRBC 0.0 k/mm3 ()?? 12/15/2023 22:12 Abs. Neut 3.0 k/mm3 ()?? 12/15/2023 22:12 Abs. Lymph 1.4 k/mm3 ()?? 12/15/2023 22:12 Abs. Pope 0.4 k/mm3 ()?? 12/15/2023 22:12 Abs. Eo 0.1 k/mm3 ()?? 12/15/2023 22:12 Abs. Baso 0.0 k/mm3 ()?? 12/15/2023 22:12 Neut % 60.5 % ()?? 12/15/2023 22:12 Lymph % 28.4 % ()?? 12/15/2023 22:12 Pope % 7.5 % ()?? 12/15/2023 22:12 Eos % 2.6 % ()?? 12/15/2023 22:12 Baso % 0.8 % ()?? 12/15/2023 22:12 Imm Gran 0.2 % ()?? 12/15/2023 22:12 Abs. Imm Gran 0.0 k/mm3 ()?? 12/15/2023 22:12 ?? CHEM GENERAL Sodium 140 mmol/L ()?? 12/15/2023 22:12 Potassium 4.3 mmol/L ()?? 12/15/2023 22:12 Chloride 104 mmol/L ()?? 12/15/2023 22:12 Bicarbonate Level 22 mmol/L ()?? 12/15/2023 22:12 Anion Gap 14 ()?? 12/15/2023 22:12 Glucose Level 99 mg/dL ()?? 12/15/2023 22:12 BUN 30 mg/dL (High)?? 12/15/2023 22:12 Creatinine-Blood 1.07 mg/dL ()?? 12/15/2023 22:12 Estimated GFR Creatinine 89 ML/MIN/1.73 M2 ()?? 12/15/2023 22:12 Calcium 8.6 mg/dL ()?? 12/15/2023 22:12 Magnesium 1.9 mg/dL ()?? 12/15/2023 22:12 Protein, Total 6.7 Gm/dL ()?? 12/15/2023 22:12 Albumin 3.9 Gm/dL ()?? 12/15/2023 22:12 AG Ratio 1.4 ()?? 12/15/2023 22:12 Alkaline Phosphatase 80 units/L ()?? 12/15/2023 22:12 AST (SGOT) 22 units/L ()?? 12/15/2023 22:12 ALT (SGPT) 12 units/L ()?? 12/15/2023 22:12 Bilirubin, Total 0.2 mg/dL ()?? 12/15/2023 22:12 Lactate 4.0 mmol/L (High)?? 12/15/2023 22:12 ?? ENDOCRINE/TUMOR MARKER TSH 2.35 uIU/mL ()?? 12/15/2023 22:12 ?? TOXICOLOGY/TDM Ethanol, Serum or Plasma NONE DETECTED mg/dL ()?? 12/15/2023 22:12 Dilantin Level 21.2 mg/L (High)?? 12/15/2023 22:12 Barbiturate Screen, Urine NONE DETECTED ()?? 12/15/2023 22:45 Cannabinoid Screen, Urine NONE DETECTED ()?? 12/15/2023 22:45 Cocaine Metabolite Screen, Urine NONE DETECTED ()?? 12/15/2023 22:45 Benzodiazepine Screen, Urine POSITIVE (Abnormal)?? 12/15/2023 22:45 Amphetamine Screen, Urine NONE DETECTED ()?? 12/15/2023 22:45 Opiate Screen, Urine NONE DETECTED ()?? 12/15/2023 22:45 ?? UA/URINALYSIS Appear/Color, Urine LIGHT YELLOW ()?? 12/15/2023 22:45 Specific [place], Urine 1.021 ()?? 12/15/2023 22:45 pH, Urine 7.5 ()?? 12/15/2023 22:45 Albumin, Urine TRACE (Abnormal)?? 12/15/2023 22:45 Glucose, Urine NEGATIVE ()?? 12/15/2023 22:45 Ketones, Urine NEGATIVE ()?? 12/15/2023 22:45 Bilirubin, Urine NEGATIVE ()?? 12/15/2023 22:45 Hemoglobin, Urine NEGATIVE ()?? 12/15/2023 22:45 Nitrite, Urine NEGATIVE ()?? 12/15/2023 22:45 Leukocyte, Urine NEGATIVE ()?? 12/15/2023 22:45 Urobilinogen NORMAL mg/dL ()?? 12/15/2023 22:45 WBC's, Urine NONE SEEN /HPF ()?? 12/15/2023 22:45 RBC's, Urine NONE SEEN /HPF ()?? 12/15/2023 22:45 Squamous Epith <1 /HPF ()?? 12/15/2023 22:45 Mucus SLIGHT /LPF ()?? 12/15/2023 22:45 Hold Urine Culture Testing available 48 hours from time of collection. ()?? 12/15/2023 22:45 ? Coagulation Profile?? No qualifying data available. ? EKG study * Event Display: ECG 12-Lead Authored Date: Please click on pdf link to open report * Event Display: ECG 12-Lead Authored Date: Ventricular Rate: 61 BPM Atrial Rate: 61 BPM P-R Interval: 204 ms QRS Duration: 102 ms Q-T Interval: 396 ms QTC Calculation(Bazett): 398 ms P [place]: 16 degrees R [place]: -1 degrees T [place]: 14 degrees Normal sinus rhythm Possible Anterior infarct (cited on or before 02-DEC-2023) Abnormal ECG When compared with ECG of 02-DEC-2023 11:33, T wave amplitude has decreased in Anterior leads Confirmed by PANFILO AVILA, [facility] ([id number][facility] on 12/16/2023 8:17:25 AM [place] * Renato BROWN, Therese: PERFORM, SIGN, VERIFY Event Display: [facility] Authored Date: Patient: RAND WILKERSON Age: 43 years Sex: Male : 1980 Associated Diagnoses: None Author: Therese Gross RN Findings Problem Related to Alteration in Neurological : Alteration in Neurological Function/new 12/19/2023 8:00 EDT Alteration in Neuro status Related to Seizure, 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 Goals & Outcomes, Neurological Lab studies/diagnostic tests within pt specific limits, Pt is safe with transfers & activities, Pt will be hemodynamically stable, Pt will be Neurologically stable, Pt will maintain intact skin integrity, Pt will remain free from injury, Pt will resume/maintain adequate cardiac output, Pt/caregiver will state strategies to reduce risk factors, Pt/caregiver will state understanding of disease process, Pt/caregiver will state understanding of plan/goals of care, Pt will be free from complications r/t seizure activity, Pt will be seizure controlled, Pt/caregiver will state understanding of home management Interventions, Neurological Assess/monitor for gaze pattern/extraocular movements, Assess/monitor neurologic status, Assess/monitor VS per unit standards & prn, Call/Report variances in assessments to provider, Keep patient's head & body in good alignment, Maintain normothermia, report temp >101.5 F, Maintain patient safety if unsteady gait, Maintain strict intake & output, MonitorFluid & Electrolytes, Serum Osmolarity, Monitor for headaches, nausea, vomiting, Monitor speechfluency, aphasia, word finding difficulty, Physical assessment per unit standards, Provide emotional support to Pt/caregiver, Teach & encourage deep breath & cough exercises, Teach pt/caregive r on plan of care, treatment, s/s & meds Goals/Interventions, Neurological Yes Neurological, Problem Start 12/16/2023 17:21 Reviewed plan with, Neurological Patient Patient Progression, Neurological Pt progressing according to plan . Nursing Data Neurological Data. : Neurological Data. 12/19/2023 9:00 EDT Tongue Disposition Midline Neurological Symptoms Back pain, History of seizures Level of Consciousness Full Consciousness Orientated to person, place, time Person, Place, Time, Event Facial Symmetry Intact Characteristics of Speech Clear and normal Swallowing Difficulty None Pupil description, left Regular Pupil description, right Regular Pupil reaction, left Brisk Pupil reaction, right Brisk Pupil Size, Left 2 mm Pupil Size, Right 2 mm Strength LUE 5-Active movement against gravity [...] To command Movement RLE Spontaneous, To command Gait No disturbance Response Eye Opening Spontaneously Motor Response-Adult Obeys commands Verbal Response-Adult Oriented and converses [place] Coma Score 15 Pain Location Lower back Pain Intensity 7 1 - 10 Pain Scale Score 7 Pain Interventions PRN medication, Repositioning, Rest Neuro WNL except Eyes and Movements Conjugate gaze: Move in same direction at same speed Memory Intact Swallow - Neuro Normal . Evaluation Pt is AxO x 4. Pt's speech is clear and is able to follow all simple and complex commnds. Pt takingpills wholee with water. Pt denies any hgeadache, dizziness, blurry or double vision. + PEERLA. Pt is moving all extremities equally and spsontaneously with 5/5 strenght bilaterally in the upper and lower extremities. Pt denies any numbness or tingling. Pt endorsing pain 7/10. Gave PRN tylenol withsome relief. Pt is on telel box #18, NSR. Pt's lung sounds are clear, denies any SOB or chest pain.+ bowel sounds in all 4 quadrants, he doesn't remember the last time he had a BM. Pt ambulating to the bathroom with a standby assist, and is voiding without complaints. Safety and seizure precautions have been maintained throughout the shift, bed is locked and in the lowest position, all itemss are within reach. Pt recieved all d/c instrujctions by this RN and receievd all personal belongings. Pt transported off unit at 1155 and accompanied by staff.. * Misael Gong RN: PERFORM, SIGN, VERIFY Event Display: Progress Note Hospital Authored Date: [id number] Patient: RAND WILKERSON Age: 43 years Sex: Male : 1980 Associated Diagnoses: None Author: Misael Gong RN Findings Narrative/Incidental Pt stable on shift. Pt is a/ox4, gcs 15, awake and alert. Pt is ambulatory with walker and assist x1, initially very dizzy when he stood up and ambulated for first time, wobbly, but improved as he went along. I walked with pt around unit for about 10 mins in the afternoon. Turner cath removed per orders around noon today. Pt voided about 100 ml UOP a few hours later but still had PVR of 217 upon bladder scan check at 3pm. Pt walked around unit after that and was encouraged to drink more fluids to see more independent UOP. Pt being kept for 1 more night to see improved UOP hopefully before being DC, pt understood. Belongings were found in SHILPI and returned to pt. Vitals stable. Pt took all meds w/out issue, cooperative and pleasant. Pt on RA, denied any chest pain/SOB. Pt on tele box 18. Pt last BM 12/15, continent x2, can go to bathroom independently or use urinal well. IV in place, flushes well, no fluids. Pt has chronic back pain, it was moderate/mild today. . Discharge Information Case Management Discharge Plan : Case Management Discharge Plan Data 12/13/2023 13:19 EDT Discharge Level of Care at Discharge Home/Shelter/Foster Care * Mello MACKEY, Nargis Sweet: PERFORM Event Display: Progress Note Hospital Authored Date: [id number] Patient: ??RAND WILKERSON ? Age:??43 Years?Sex:??Male?:??1980?? Subjective Patient seen at bedside, doing well. Denies new or concerning symptoms.? Review of Systems Full ROS conducted and negative except that mentioned in the HPI. [...] reveals no swelling or tenderness of neck nodes.? Psychiatric: Normal mood and affect Assessment/Plan The patient is a 43 years old male who is admitted breakthrough seizure. ?? 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 Breakthrough seizure (G40.919):? Plan: -Patient had history of myoclonic epilepsy??and possible generalized??seizure who presented to ER with multiple seizures at home -Patient had multiple admission??recently with??similar presentation and recently??dose of?clobazam was increased -In ER and on floor had multiple seizures that were aborted with Ativan easily -Labs showed normal sodium, normal magnesium level, normal calcium level -U-Tox only possible benzodiazepine, negative for any other substance, alcohol level negative -CT head negative, UA negative -Dilantin level is 21.2,??other levels of AEDs pending -IV Ativan as needed for seizure -Resume home medicine clobazam (increase dose to 20mg BID per neuro), lamotrigine??sodium 1 mg twice daily,??phenytoin 200 mg daily and 3000mg at bedtime -Neurology consulted,??will follow recommendations, appreciated- signed off, will have follow up OP ?? Acute metabolic encephalopathy (G93.41):??Etiology:??Likely postictal state ?? Plan: -Resolved, now alert and oriented x4 ?? Urinary Retention (R33.9): ?? Plan: -new retention likely related to??seizure, post-ictal state and multiple benzo doses -will attempt voiding trial tonight -if fails, will??plan to DC tomorrow with SN at home for Turner care and request??Urology follow up ?? Bipolar disorder (F31.9):??Resume home meds olanzapine, sertraline ?? Plan: -Suicidal ideation, psych has seen and cleared from??suicide precautions, 1:1 sitter DCed -no indication for inpatient psych treatment ?? Quality Measures: VTE Prophylaxis:??Lovenox. Code Status:??Full code. Discharge hopeful for tomorrow pending voiding trial. Consult note * Bobby Chau DO: PERFORM Bobby Chau DO: PERFORM, MODIFY Bobby Chau DO: MODIFY, MODIFY, MODIFY, MODIFY, MODIFY, MODIFY, MODIFY, MODIFY, MODIFY, MODIFY Event Display: Consultation Note Authored Date: Patient: ??RAND WILKERSON ? Age:??43 Years?Sex:??Male?:??1980?? Provider Clinical Summary Referring Provider:??Dr. 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 Chief Complaint Identifying information:?? Reason for hospitalization, medical diagnosis: multiple breakthrough seizures, Epilepsy Psychiatry was consulted for: SI History of Present Illness Rand Mullen is a 43 year old man with a past medical history of Epilepsy, initially presenting to the ED at [facility] on 12/15/2023 due to multiple breakthrough seizures. Rand has been evaluated here at [facility] several times this month for breakthrough seizure activity. Per chart review,??Rand was most recently evaluated by Neuro on 12/12 prior to discharge from most recent hospitalization earlier this week. Per Neuro note, Rand underwent 48 hour EEG which captured the breakthrough??seizureactivity. Neuro increased Clobazam from 15mg BID to 15mg AM and 20mg at bedtime for a total of 35 mg daily. Per chart review, patient's medications are administered at home by a visiting nurse and family members report that he is taking medications as prescribed as far as they know. Dilantin level was 21.2 on admission 12/14. Per chart review, patient has a recent??history of alcohol use disorder and was hospitalized at [place] for 3 weeks and per [facility], immediately upon d/c on 11/15/2023 began to heavily drink and began to experience breakthrough seizures shortly afterwards.??When he presented tohis last hospitalization, Rand,??denied alcohol use since and Ethanol levels were undetected at last admission as well as on 12/14.??Psychiatry was consulted due to patient reporting wanting to by slitting his throat to one of his care team members in the ED. Rand does have a psychiatric history, per chart review, of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 ()?12/15/2023 22:12 Opiate Screen, Urine?NONE DETECTED ()?12/15/2023 22:45 ?? UA/URINALYSIS Albumin, Urine?TRACE (Abnormal)?12/15/2023:45 Appear/Color, Urine?LIGHT YELLOW ()?12/15/2023:45 Bilirubin, Urine?NEGATIVE ()?12/15/2023:45 Glucose, Urine?NEGATIVE ()?12/15/2023:45 Hemoglobin, Urine?NEGATIVE ()?12/15/2023 22:45 Hold Urine Culture?Testing available 48 hours from time of collection. () ?12/15/2023 22:45 Ketones, Urine?NEGATIVE ()?12/15/2023 22:45 Leukocyte, Urine?NEGATIVE ()?12/15/2023 22:45 Mucus?SLIGHT /LPF ()?12/15/2023 22:45 Nitrite, Urine?NEGATIVE ()?12/15/2023 22:45 Urobilinogen?NORMAL mg/dL ()?12/15/2023 22:45 ?? Note: Critical results are displayed in red. ? * Forrest AVILA, Behzad Krishnamurthy: PERFORM Event Display: Consultation Note Authored Date: Pt seen and examined and discussed with AP.?? Agree with above. ?? Breakthrough sz in setting of hx poor medication compliance and drug use though tox screen negativeother than benzo's. - Observe - Follow up on admission??AED levels - Continue home meds (Clobazam 15mg am/20mg pm (increased from 15mg BID),??Lamictal 300mg BID, and Phenytoin 200am/300pm) - Can hold off on EEG for now - Evaluate for systemic illness Note * Therese Gross RN: PERFORM Event Display: Discharge/Transfer Note Hospital Authored Date: [id number] Nursing Discharge Note Entered On: 12/19/2023 12:11 EDT Performed On: 12/19/2023 11:55 EDT by Therese Gross RN Nursing Discharge Note 2 Discharge Time : 12/19/2023 11:55 EDT Discharge Level of Care at Discharge : Home/Shelter/Foster Care Patient Left Unit Via : Wheelchair Patient Accompanied Off Unit with : Responsible adult DC Instructions Provided & Signed by Pt : Yes Patient Understands D/C Instructions : Yes Patient Instructions Discharge Signed : Yes Did Pt have Specialty Bed or Wound Vac : No Therese Gross RN - 12/19/2023 12:10 EDT * Mello MACKEY, Nargis Sweet: PERFORM, MODIFY, MODIFY, MODIFY Event Display: Discharge/Transfer Note Hospital Authored Date: [id number] Patient: ??RAND WILKERSON ? Age:??43 Years?Sex:??Male?:??1980?? 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) Acute metabolic encephalopathy (G93.41) Bipolar disorder (F31.9) Suicidal ideation (R45.851) _ Discharge Medications Albuterol/Ipratropium (Combivent Respimat 20 mcg-100 mcg/inh inhalation aerosol)?1?puff(s)?Inhalation?4 times a day?as needed?Wheezing/Shortness of Breath Clobazam (clobazam 10 mg oral tablet)?20?Milligram?By Mouth?2 times a day Folic Acid (folic [...] reconstitution)?17?gram?By Mouth?Daily Sertraline (sertraline 50 mg oral tablet)?100?Milligram?By Mouth?Daily Thiamine (Vitamin B1 100 mg oral tablet)?100?Milligram?1?tablet?By Mouth?Daily Trazodone (traZODone 50 mg oral tablet)?50?Milligram?1?tablet?By Mouth?Daily at bedtime Medications Started None Medications Discontinued None Doses Changed Increased Clobazam to 20mg BID per neuro recs Allergies Allergies ?(Active and Proposed Allergies Only) cyclobenzaprine? (Severity: Unknown severity, Onset: Unknown) erythromycin? (Severity: Unknown severity, Onset: Unknown) ?Reactions: rash ?? Future Appointments Wednesday 3:00 PM EST ?? With: Tanvir NUÑEZ, aCmila Chavez Where: [facility] Neurology [address] [place] [address]- Status: Pending Hospital Course Patient admitted to the hospital on 12-16-2023 with complaint of myoclonic epilepsy, breakthrough seizure. He also presented with acute metabolic encephalopathy secondary to breakthrough seizure and course was complicated by urinary retention while in hospital. Patient Dors some SI comments in addition while he was being admitted, he was seen by psych and cleared for suicide precautions. Did not require psychiatric inpatient treatment. Neurology was consulted for the breakthrough seizure, likely medication noncompliance though did increase his clobazam medication to 20 mg twice daily and recommended to continue all other AEDs as prescribed. His urinary retention was easily corrected, likelysecondary to seizure-like activity and multiple doses of benzos being administered. Patient passed a voiding trial with flying colors. Per PT, no need for services. At time discharge, stable, all questions answered at bedside. Will follow-up with his PCP as well as neurology outpatient in the seizure clinic. Objective Assessment and Plan The patient is a 43 years old male who is admitted breakthrough seizure. ?? 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 Breakthrough seizure (G40.919):? Plan: -Patient had history of myoclonic epilepsy??and possible generalized??seizure who presented to ER with multiple seizures at home -Patient had multiple admission??recently with??similar presentation and recently??dose of??clobazam was increased -In ER and on floor had multiple seizures that were aborted with Ativan easily -Labs showed normal sodium, normal magnesium level, normal calcium level -U-Tox only possible benzodiazepine, negative for any other substance, alcohol level negative -CT head negative, UA negative -Dilantin level is 21.2,??other levels of AEDs pending -Resume home medicine clobazam (increase dose to 20mg BID per neuro), lamotrigine??sodium 1 mg twice daily,??phenytoin 200 mg daily and 3000mg at bedtime -Neurology consulted,??signed off, will have follow up OP -PT has seen and recommending home ?? Acute metabolic encephalopathy (G93.41):??Etiology:??Likely postictal state ?? Plan: -Resolved, now alert and oriented x4 ?? Urinary Retention (R33.9): ?? Plan: -required a Turner while inpatient, but passed??voiding trial inpatient ?? Bipolar disorder (F31.9):??Resume home meds olanzapine, sertraline ?? Plan: -Suicidal ideation, psych has seen and cleared from??suicide precautions, 1:1 sitter DCed -no indication for inpatient psych treatment -will FU with PCP/psych about potentially increasing home sertraline dosing OP Vital Signs?? Temperature: 97.9 DegF (12/19/23 03:34:00) Temperature Route: Oral (12/19/23 03:34:00) Pulse Rate: 56 bpm (12/19/23 03:34:00) Respiratory Rate: 18 br/min (12/19/23 03:34:00) Systolic Blood Pressure: 105 mm Hg (12/19/23 03:34:00) Diastolic Blood Pressure:??52 mm Hg??Low (12/19/23 03:34:00) Blood pressure sites: Arm, right (12/19/23 03:34:00) Mean Arterial Pressure: 70 mm Hg (12/19/23 03:34:00) Pulse Pressure: 53 mm Hg (12/19/23 03:34:00) Oxygen Saturation: 95 % (12/19/23 03:34:00) Mode of Delivery (Oxygen): Room air (12/19/23 03:34:00) Early Warning Score: 4 (12/19/23 03:35:29) . Physical Exam Constitutional: Alert, in no [...] reveals no swelling or tenderness of neck nodes.? Psychiatric: Normal mood and affect Follow-Up Appointments Added Follow Up ?Time Frame ?Comments Not on Staff, PCP?3-5 day: call to discuss follow up visit?Be sure to also follow-up with your primary care provider to keep them updated on this hospitalization and your general health. Patient Instructions You are seen at [facility] for complaint of breakthrough seizure.?? We have increased your clobazam??to 20 mg twice a day.?? I left all of your other antiepileptic medications??as prescribed.?? Please ensure that you take your medication as prescribed??and do not miss any dosing to prevent further breakthrough seizure.?? He also had some urinary retention for which he required a Turner catheter however, we remove this and you are able to urinate on your own??without much postvoid residual.?? You are now stable and ready for discharge home. Be sure to still follow up with neurologyin the seizure clinic as well as your PCP.? I was sadly unable to send more Clobazam as you just refilled it and the insurance would not fill more today. So instead, just use your 10mg tablets and take 2 tablets twice a day, morning and night,until you run out. I have sent a script for 20mg tablets to your preferred home pharmacy and you can fill that when you run out of the 10mg tablets.?? Post Discharge [facility] Face to Face ^HomeHealthFTF Results Discharge Labs BLOOD COUNT & DIFF WBC 5.0 k/mm3 ()?? 12/17/2023 09:30 RBC 4.32 m/mm3 (Low)?? 12/17/2023 09:30 Hgb 13.1 Gm/dL (Low)?? 12/17/2023 09:30 Hct 41.2 % ()?? 12/17/2023 09:30 MCV 95.4 femtoliters (High)?? 12/17/2023 09:30 MCH 30.3 pg ()?? 12/17/2023 09:30 MCHC 31.8 Gm/dL (Low)?? 12/17/2023 09:30 Platelet Count 160 k/mm3 ()?? 12/17/2023 09:30 RDW-SD 48.5 femtoliters (High)?? 12/17/2023 09:30 MPV 10.8 femtoliters ()?? 12/17/2023 09:30 Nucleated RBC (Automated) 0.0 #/100 WBC'S ()?? 12/17/2023 09:30 Abs. NRBC 0.0 k/mm3 ()?? 12/17/2023 09:30 Abs. Neut 3.0 k/mm3 ()?? 12/15/2023 22:12 Abs. Lymph 1.4 k/mm3 ()?? 12/15/2023 22:12 Abs. Pope 0.4 k/mm3 ()?? 12/15/2023 22:12 Abs. Eo 0.1 k/mm3 ()?? 12/15/2023 22:12 Abs. Baso 0.0 k/mm3 ()?? 12/15/2023 22:12 Neut % 60.5 % ()?? 12/15/2023 22:12 Lymph % 28.4 % ()?? 12/15/2023 22:12 Pope % 7.5 % ()?? 12/15/2023 22:12 Eos % 2.6 % ()?? 12/15/2023 22:12 Baso % 0.8 % ()?? 12/15/2023 22:12 Imm Gran 0.2 % ()?? 12/15/2023 22:12 Abs. Imm Gran 0.0 k/mm3 ()?? 12/15/2023 22:12 ?? CHEM GENERAL Sodium 141 mmol/L ()?? 12/17/2023 09:44 Potassium 3.9 mmol/L ()?? 12/17/2023 09:44 Chloride 106 mmol/L ()?? 12/17/2023 09:44 Bicarbonate Level 24 mmol/L ()?? 12/17/2023 09:44 Anion Gap 11 ()?? 12/17/2023 09:44 Glucose Level 162 mg/dL (High)?? 12/17/2023 09:44 BUN 25 mg/dL (High)?? 12/17/2023 09:44 Creatinine-Blood 0.85 mg/dL ()?? 12/17/2023 09:44 Estimated GFR Creatinine 111 ML/MIN/1.73 M2 ()?? 12/17/2023 09:44 Calcium 9.0 mg/dL ()?? 12/17/2023 09:44 Magnesium 2.2 mg/dL ()?? 12/17/2023 09:44 Protein, Total 6.8 Gm/dL ()?? 12/17/2023 09:44 Albumin 4.0 Gm/dL ()?? 12/17/2023 09:44 AG Ratio 1.4 ()?? 12/17/2023 09:44 Alkaline Phosphatase 83 units/L ()?? 12/17/2023 09:44 AST (SGOT) 20 units/L ()?? 12/17/2023 09:44 ALT (SGPT) 13 units/L ()?? 12/17/2023 09:44 Bilirubin, Total 0.3 mg/dL ()?? 12/17/2023 09:44 Lactate 2.2 mmol/L ()?? 12/16/2023 05:02 ? ENDOCRINE/TUMOR MARKER TSH 2.35 uIU/mL ()?? 12/15/2023 22:12 ? TOXICOLOGY/TDM Ethanol, Serum or Plasma NONE DETECTED mg/dL ()?? 12/15/2023 22:12 Dilantin Level 21.2 mg/L (High)?? 12/15/2023 22:12 Phenytoin Level, Free 1.6 ()?? 12/16/2023 05:02 Barbiturate Screen, Urine NONE DETECTED ()?? 12/15/2023 22:45 Cannabinoid Screen, Urine NONE DETECTED ()?? 12/15/2023 22:45 Cocaine Metabolite Screen, Urine NONE DETECTED ()?? 12/15/2023 22:45 Benzodiazepine Screen, Urine POSITIVE (Abnormal)?? 12/15/2023 22:45 Amphetamine Screen, Urine NONE DETECTED ()?? 12/15/2023 22:45 Opiate Screen, Urine NONE DETECTED ()?? 12/15/2023 22:45 ? UA/URINALYSIS Appear/Color, Urine LIGHT YELLOW ()?? 12/15/2023 22:45 Specific [place], Urine 1.021 ()?? 12/15/2023 22:45 pH, Urine 7.5 ()?? 12/15/2023 22:45 Albumin, Urine TRACE (Abnormal)?? 12/15/2023 22:45 Glucose, Urine NEGATIVE ()?? 12/15/2023 22:45 Ketones, Urine NEGATIVE ()?? 12/15/2023 22:45 Bilirubin, Urine NEGATIVE ()?? 12/15/2023 22:45 Hemoglobin, Urine NEGATIVE ()?? 12/15/2023 22:45 Nitrite, Urine NEGATIVE ()?? 12/15/2023 22:45 Leukocyte, Urine NEGATIVE ()?? 12/15/2023 22:45 Urobilinogen NORMAL mg/dL ()?? 12/15/2023 22:45 WBC's, Urine NONE SEEN /HPF ()?? 12/15/2023 22:45 RBC's, Urine NONE SEEN /HPF ()?? 12/15/2023 22:45 Squamous Epith <1 /HPF ()?? 12/15/2023 22:45 Mucus SLIGHT /LPF ()?? 12/15/2023 22:45 Hold Urine Culture Testing available 48 hours from time of collection. ()?? 12/15/2023 22:45 ?? URINE OTHER Est Creatinine Clearance 120.09 mL/min ()?? 12/17/2023 10:46 ? 35??minutes spent on discharge * Therese Gross RN: PERFORM Event Display: Patient Education/Instruction Authored Date: [id number] Inpatient Adult Discharge Instructions. [address] [address] Name: RAND ROCK : 1980?? Visit: 12/16/2023 00:39?? Current Date: 12/19/2023 11:31 ?? Account: [id number]?? Inpatient Adult Discharge Instructions We would like [...] and their families. Surveys are administered by [employer]. ?? If further treatment with your primary care physician or another doctor is recommended, it is important for you to keep the appointment. Call your primary care physician or return to the Emergency Department immediately if your condition worsens, fails to improve, or new symptoms develop. If you need to find a doctor, you can call [facility] [employer] for a referral at [phone] or toll free at [email or web address] ([phone]) or log in to [email or web address] [email or web address].. ?? [facility], in keeping with [facility] guidance, no longer requires face masks for [...] a health care parvin of your choosing. [employer] is a website that allows you to securely view your medical information including your hospital discharge summary, office visit summaries, medications and follow-up visits. You can also request appointments, renew medications, and request access to your medical information using a health care parvin of your choosing, or just ask a question. You can enroll at [email or web address] or register during your next office visit. You have been discharged from [facility], Patient Care Unit: D5A??. If you have any questions regarding these instructions, including results of studies pending, afteryou leave, please call us and we will be happy to assist you 28/09. [facility] Your Care Team Attending Physician Marcelle Whaley MD?? Consulting Providers Marcelle Whaley MD?? Discharging Providers Mello MACKEY, Nargis Sweet Reason for Your Visit Pt from home with c/o multiple seizures. Family states pt has been having seizures repeatedly today. Pt recently seen at [facility] with medication change, but pt is unsure of what is different.?? Your Diagnosis Breakthrough seizure Myoclonic epilepsy Acute metabolic encephalopathy Bipolar disorder Suicidal ideation Urinary retention Tests Performed Below is a partial list of the tests performed during your hospitalization. You may have had other tests and procedures not included in this list. Please discuss all test results with your provider. Amphetamine Urine Screen Barbiturate Urine Screen Basic Metabolic Panel Benzodiazepine Urine Screen Cannabinoid Urine Screen CBC CBC w/ Differential Cocaine Urine Screen Comprehensive Metabolic Panel Dilantin Level Ethanol Level Lactate Level Lactic Acid Level Magnesium Level Opiate Screen Urine Phenytoin Free Level TSH with T4 Reflex (Adults Only) Urinalysis w/hold for Urine Culture CT Head/Brain W/O Contrast Amphetamine Urine Screen?? Barbiturate Urine Screen?? Basic Metabolic Panel?? Benzodiazepine Urine Screen?? CBC?? CBC w/ Differential?? CT Head/Brain W/O Contrast?? Cannabinoid Urine Screen?? Clobazam Level?? Cocaine Urine Screen?? Comprehensive Metabolic Panel?? Ethanol Level?? Lactic Acid Level?? Lamotrigine Level?? Magnesium Level?? Opiate Screen Urine?? Phenytoin Free Level?? Phenytoin Total Level (Dilantin Level)?? TSH with T4 Reflex (Adults Only)?? Urinalysis w/hold for Urine Culture?? Primary Care Provider Not on Staff, PCP?? Advance Directive Health Care Proxy on File Yes - Health Care Proxy Yes - MOLST Discharge Vitals Temperature: 97.3 DegF Height: 180 cm Pulse Rate: 62 bpm Weight: 115 kg Respiratory Rate: 18 br/min Body Mass Index:??35.49 kg/m2??Critical Systolic Blood Pressure: 125 mm Hg Body surface area: 2.4 Diastolic Blood Pressure: 60 mm Hg ?? Oxygen Saturation: 97 % ?? Studies Pending All studies ordered during this hospital stay have been completed unless listed below. Please discuss all pending results with your provider listed above in these instructions. ?? Clobazam Level?? Lamotrigine Level?? What to do next Instructions From Your Doctor You are seen at [facility] for complaint of breakthrough seizure.?? We have increased your clobazam??to 20 mg twice a day.?? I left all of your other antiepileptic medications??as prescribed.?? Please ensure that you take your medication as prescribed??and do not miss any dosing to prevent further breakthrough seizure.?? He also had some urinary retention for which he required a Turner catheter however, we remove this and you are able to urinate on your own??without much postvoid residual.?? You are now stable and ready for discharge home. Be sure to still follow up with neurologyin the seizure clinic as well as your PCP.? I was sadly unable to send more Clobazam as you just refilled it and the insurance would not fill more today. So instead, just use your 10mg tablets and take 2 tablets twice a day, morning and night,until you run out. I have sent a script for 20mg tablets to your preferred home pharmacy and you can fill that when you run out of the 10mg tablets.? Orders??:Regular Diet :as tolerated Status:Full :Good :Good? 12/19/23 10:15:00 EDT?? Prescriptions??, ??12/19/23 10:15:00 EDT?? Scheduled Follow-Up Appointments Wednesday 3:00 PM EST ?? With: Tanvir NUÑEZ, Camila Chavez Where: [facility] Neurology [address], [address] [place] [phone]- Status: Pending You Need to Schedule the Following Appointments Follow Up with??Not on Staff, PCP When:??Within 3-5 day: call to discuss follow up visit Why: Be sure to also follow-up with your primary care provider to keep them updated on this hospitalization and your general health. Discharge Medications RAND WILKERSON :1980 Visit Date:12/16/2023 Medications: Please continue your medications until treatment is completed or stopped by your provider. Medications not listed below should be discontinued. Discuss any questions related to medications with your provider. What How Much When Instructions Next Dose Changed Albuterol/ Ipratropium (Combivent Respimat 20 mcg-100 mcg/ inh inhalation aerosol) 1 puff(s) Inhalation 4 times a day as needed for Wheezing/Shortness of Breath Not given. Take as prescribed. Changed Clobazam (clobazam 10 mg oral tablet) 20 Milligram Oral Twice a day Tonight 10 @9pm. Changed Clobazam (cloBAZam 20 mg oral tablet) 1 tab(s) Oral Twice a day Duration: 30 Days Pickup at [facility]/pharmacy #[id number] Tonight 10 @9pm. Changed Sertraline (sertraline 50 mg oral tablet) 100 Milligram Oral Daily Tomorrow 12/19 @9am. Unchanged Folic Acid (folic acid 1 mg oral tablet) 1 tab(s) Oral Daily Tomorrow 12/19 @9am. Unchanged Ibuprofen (Motrin Tablet) 600 Milligram Oral 3 times a day with meals Tonight 10 @9pm. Unchanged Lamotrigine (lamotrigine 150 mg oral tablet) 2 tablets Oral Twice a day Tonight 10 @9pm. Unchanged Melatonin (melatonin 5 mg oral tablet) 1 tab(s) Oral Daily at Bedtime Tonight 10 @9pm. Unchanged Olanzapine (olanzapine 5 mg oral tablet) 1 tab(s) Oral Daily at Bedtime Tonight 10 @9pm. Unchanged Phenytoin (phenytoin 200 mg oral capsule, extended release) 200 Milligram Oral Daily in the morning Tomorrow 10 @9am. Unchanged Phenytoin (phenytoin 300 mg oral capsule, extended release) 300 Milligram Oral Daily at Bedtime Tonight 10 @9pm. Unchanged Polyethylene Glycol 3350 (MiraLax oral powder for reconstitution) 17 gram Oral Daily Not given. Take as prescribed. Unchanged Thiamine (Vitamin B1 100 mg oral tablet) 1 tab(s) Oral Daily Tomorrow 12/19 @9am. Unchanged Trazodone (traZODone 50 mg oral tablet) 1 tab(s) Oral Daily at Bedtime Not given. Take as prescribed. Tonight 10 @ 9pm. Pharmacy Information [facility]/pharmacy #[id number]: [address], [place] [phone] Prescription Given During Visit Clobazam (cloBAZam 20 mg oral tablet) - 1 tablet = 20 mg, By Mouth, 2 times a day, # 60 tablet, 0 Refills, [facility]/pharmacy #[id number], [address] [place] [phone]?? Laboratory Results Below is a partial list of the most recent Laboratory test results done prior to this discharge. You may have had other tests and procedures not included in this list. Please discuss all test resultswith your provider. Est Creatinine Clearance - 120.09 mL/min (12/17/2023) Amphetamine Urine Screen (12/15/2023) ???Amphetamine Screen, Urine - NONE DETECTED Barbiturate Urine Screen (12/15/2023) ???Barbiturate Screen, Urine - NONE DETECTED Basic Metabolic Panel (12/16/2023) ???Sodium - 136 mmol/L???Potassium - 4.5 mmol/L???Chloride - 103 mmol/L???Bicarbonate Level - 22 mmol/L???Anion Gap - 11???Glucose Level - 81 mg/dL???BUN - 31 mg/dL???Creatinine-Blood - 0.86 mg/dL???Estimated GFR Creatinine - 111 ML/MIN/1.73 M2???Calcium - 8.6 mg/dL Benzodiazepine Urine Screen (12/15/2023) ???Benzodiazepine Screen, Urine - POSITIVE Cannabinoid Urine Screen (12/15/2023) ???Cannabinoid Screen, Urine - NONE DETECTED CBC (12/17/2023) ???WBC - 5.0 k/mm3???RBC - 4.32 m/mm3???Hgb - 13.1 Gm/dL???Hct - 41.2 %???MCV - 95.4 femtoliters???MCH - 30.3 pg???MCHC - 31.8 Gm/dL???Platelet Count - 160 k/mm3???RDW-SD - 48.5 femtoliters???MPV - 10.8 femtoliters???Nucleated RBC (Automated) - 0.0 #/100 WBC'S???Abs. NRBC - 0.0 k/mm3 CBC w/ Differential (12/15/2023) ???WBC - 4.9 k/mm3???RBC - 4.11 m/mm3???Hgb - 12.6 Gm/dL???Hct - 38.8 %???MCV - 94.4 femtoliters???MCH - 30.7 pg???MCHC - 32.5 Gm/dL???Platelet Count - 161 k/mm3???RDW-SD - 47.4 femtoliters???MPV - 10.8 femtoliters???Nucleated RBC (Automated) - 0.0 #/100 WBC'S???Abs. NRBC - 0.0 k/mm3???Abs. Neut - 3.0 k/mm3???Abs. Lymph - 1.4 k/mm3???Abs. Pope - 0.4 k/mm3???Abs. Eo - 0.1 k/mm3???Abs. Baso - 0.0 k/mm3???Neut % - 60.5 %???Lymph % - 28.4 %???Pope % - 7.5 %???Eos % - 2.6 %???Baso % - 0.8 %???Imm Gran - 0.2 %???Abs. Imm Gran - 0.0 k/mm3 Cocaine Urine Screen (12/15/2023) ???Cocaine Metabolite Screen, Urine - NONE DETECTED Comprehensive Metabolic Panel (12/17/2023) ???Sodium - 141 mmol/L???Potassium - 3.9 mmol/L???Chloride - 106 mmol/L???Bicarbonate Level - 24 mmol/L???Anion Gap - 11???Glucose Level - 162 mg/dL???BUN - 25 mg/dL???Creatinine-Blood - 0.85 mg/dL???Estimated GFR Creatinine - 111 ML/MIN/1.73 M2???Calcium - 9.0 mg/dL???Protein, Total - 6.8 Gm/dL???Albumin - 4.0 Gm/dL???AG Ratio - 1.4???Alkaline Phosphatase - 83 units/L???AST (SGOT) - 20 units/L???ALT (SGPT) - 13 units/L???Bilirubin, Total - 0.3 mg/dL Dilantin Level (12/15/2023) ???Dilantin Level - 21.2 mg/L Ethanol Level (12/15/2023) ???Ethanol, Serum or Plasma - NONE DETECTED Lactate Level (12/15/2023) ???Lactate - 4.0 mmol/L Lactic Acid Level (12/16/2023) ???Lactate - 2.2 mmol/L Magnesium Level (12/17/2023) ???Magnesium - 2.2 mg/dL Opiate Screen Urine (12/15/2023) ???Opiate Screen, Urine - NONE DETECTED Phenytoin Free Level (12/16/2023) ???Phenytoin Level, Free - 1.6 TSH with T4 Reflex (Adults Only) (12/15/2023) ???TSH - 2.35 uIU/mL Urinalysis w/hold for Urine Culture (12/15/2023) ???Appear/Color, Urine - LIGHT YELLOW???Specific [place], Urine - 1.021???pH, Urine - 7.5???Albumin, Urine - TRACE???Glucose, Urine - NEGATIVE???Ketones, Urine - NEGATIVE???Bilirubin, Urine - NEGATIVE???Hemoglobin, Urine - NEGATIVE???Nitrite, Urine - NEGATIVE???Leukocyte, Urine - NEGATIVE???Urobilin ogen - NORMAL? ?WBC's, Urine - NONE SEEN? ?RBC's, Urine - NONE SEEN? ?Squamous Epith - <1 /HPF? ?Mucus - SLIGHT???Hold Urine Culture - Testing available 48 hours from time of collection. You will be contacted within 72 hours with your results. Immunizations This Visit Not Given Vaccine Commentsinfluenza virus vaccine, inactivated Patient Refuses Allergies (NKA means No Known Allergies) cyclobenzaprine erythromycin??(rash) Problems Active Problems??(6) COPD without exacerbation?? COVID?? COVID-19?? Obese class II?? Obesity?? Polysubstance abuse?? Education Materials Below is the list of Educational Leaflet Providered with your Discharge Instructions. [employer] Patient Education - Recurrent Seizure (Adult)?? [employer] Patient Education - Living Well with Epilepsy?? [employer] Patient Education - Safety During a Seizure?? [employer] Patient Education - Epilepsy?? Valuables and Belongings I fully understand and agree that [facility] accepts no responsibility for all my [...] to send valuables and belongings home. ?? Date for Pt to Sign Valuables/Belongings: 12/17/23 06:38:00 ?? Other Discharge Information ? Pulmonary Rehab [...] are strongly encouraged to quit. Please call [facility] Health Link at [phone] or [phone] ([phone]) or log in to [email or web address] for referrals to smoking cessation programs. ?? 988 Suicide & Crisis Lifeline is available 28/09 if you or someone you know needs to find a reason to keep living. By calling 988 you'll be connected to a skilled, trained counselor at a crisis center in your area. INPATIENT DISCHARGE INSTRUCTIONS SIGNATURE PAGE RAND WILKERSON Location:[facility] Registration Date and Time:12/16/2023 00:39 EDT Primary Care Physician: Not on Staff, PCP Attending Physician: Jovana AVILA, [facility], I RAND WILKERSON, have received the above patient education materials/instructions and have verbalized understanding. If ambulance or transport services are being used I further acknowledge being given a choice of service. ?? If you need to contact me, please call me at this number: . Patient/Draw String Knotter Name: Patient/Draw String Knotter Signature: Relationship to Patient: Witness Name/Signature: Date: * Therese Gross RN: PERFORM Event Display: Patient Education Leaflets Authored Date: [id number] Recurrent Seizure (Adult) ?? [id number] Recurrent Seizure (Adult) You have had another [...] gets worse? Last Reviewed Date: 2021 ?? [id number] [employer]. All rights reserved. This information is not intended as a substitute for professional medical care. Always follow your healthcare professional's instructions. ?? * Therese Gross RN: PERFORM Event Display: Patient Education Leaflets Authored Date: [id number] Living Well with Epilepsy ?? 29030 Living Well with Epilepsy People with epilepsy??can [...] ?? Last Reviewed Date: 2021 ?? [employer]. All rights reserved. This information is not intended as a substitute for professional medical care. Always follow your healthcare professional's instructions. ?? * Therese Gross RN: PERFORM Event Display: Patient Education Leaflets Authored Date: [id number] Safety During a Seizure ?? 44165 Safety During a Seizure Safety during a [...] or the person's condition is not known, adip501. ?? Call 911 Call 911 if any [...] ?? Last Reviewed Date: 2021 ?? [employer]. All rights reserved. This information is not intended as a substitute for professional medical care. Always follow your healthcare professional's instructions. ?? Patient Care team information Care Team Personnel Name: Gus Mcgraw RN Position: [facility] RN Member Role: Primary Care Nurse Name: Patience Mcpherson RN Position: S RN Member Role: Primary Care Nurse Name: Therese Gross RN Position: S RN Member Role: Primary Care Nurse Name: Isadora Rice RN Position: [facility] RN Member Role: Primary Care Nurse Name: Joseluis Thorpe RN Position: [facility] RN Member Role: Primary Care Nurse Name: Stas Erwin RN Position: [facility] RN Member Role: Primary Care Nurse Name: Valencia Fisher Position: [facility] RN Magy Member Role: Primary Care Nurse Name: Francesco Baca RN Position: [facility] RN Member Role: Primary Care Nurse Name: Angelika Gu RN Position: [facility] RN Member Role: Primary Care Nurse Name: Melanie Sainz RN Position: [facility] RN Member Role: Primary Care Nurse Name: Kavita Polo NP Position: [facility] Associate Professional Member Role: Primary Care Nurse Address: Address: [address] [place] [address] Name: Verona BROWN, Beau Ward Position: [facility] RN Member Role: Primary Care Nurse Name: Not on Staff, PCP Position: [facility] Physician (General Medicine) Member Role: PCP Name: See Chavez RN Position: [facility] RN Member Role: Primary Care Nurse Name: Myke Mcfadden RN Position: [facility] RN Member Role: Primary Care Nurse Name: Monika Marquez RN Position: [facility] RN Member Role: Primary Care Nurse Name: Elaine Reis RN Position: [facility] RN Member Role: Primary Care Nurse Name: Clay Quiñonez RN Position: [facility] RN Member Role: Primary Care Nurse Name: Veronika Dinero LPN Position: [facility] RN Member Role: Primary Care Nurse Name: Paul Ruiz RN Position: [facility] RN Member Role: Primary Care Nurse Care Team Related Persons Name: JEANNE GIRON Address: [address] [place] [address] Name: CHARITO DOOLEY Address: [address] [place] [address]
--- OUTSIDE RECORDS SUMMARY | 2024-02-03 15:00 | XMS_ITS | Continuity of Care Document ---
Author Organization [facility] ter Address [address] [place] [id number] Care Team Providers Care Manager Market Name Role Phone Name Matthieu AVILA Primary Care Physician Encounter [facility] [place] Date(s): 01/20/24 - 01/25/[address] [id number] Encounter Diagnosis COPD (chronic obstructive pulmonary disease)(Final) - 01/20/24 Bipolar disorder(Final) - 01/20/24 Alcohol use disorder(Final) - 01/20/24 Discharge Disposition: A-D/C Home Attending Physician: Romina Hairston DO Admitting Physician: Christiano Ge MD Referring Physician: Not on Staff, Referring MD Encounter Type: Disch IP Allergies, Adverse Reactions, Alerts Substance Criticality Severity Reaction Reaction Severity Status erythromycin rash Active cyclobenzaprine Acti ve Immunizations Given and Recorded Vaccine Date Status Refusal Reason tetanus/diphtheria/pertussis, acel(Tdap) 07/13/20 Recorded tetanus/diphtheria/pertussis, acel(Tdap) 12/23/09 Recorded Medications clobazam 10 mg oral tablet = 10 mg, By Mouth, Daily in AM, # 30 tablet, 0 Refills, Maintenance, 01/25/24 11:09:00 AM EST, Tablet, [facility], Partial fill upon patient request [...] 0 Refills, Maintenance, 01/25/24 11:09:00 AM EST,Tablet, [facility], Partial fill upon patient request [...] Refills, Maintenance, 01/17/24 2:22:00 PM EST, Tablet, [facility], Partial fill upon patient request [...] 2:21:00 PM EST, Route to Pharmacy Electronically, [facility], Partial fill upon patient request [...] Refills, Maintenance, 01/25/24 11:06:00 AM EST, Tablet, [facility], Partial fill upon patient request [...] Exam Date Time Procedure Performing Provider Status 01/20/24 11:[address] Cervical Spine W/O Contrast Stephani Clark; Auth (Verified) Notes: (CT Cervical Spine W/O Contrast) Reason For Exam: ?fall at home with seizure;Other: RESULT: CT Cervical Spine W/O Contrast CT Cervical Spine W/O Contrast Reason: Other:; ?fall at home with seizure; Clinical Question(s): Fracture Dislocation; Order Comment: TECHNIQUE: Spiral CT of the cervical spine without contrast, formatted in 3 planes. Weight-based protocol using automatic tube modulation was used to optimize exposure parameters. RADIATION DOSE PARAMETERS: COMPARISON: None. FINDINGS: Spine: No fracture. No acute osseous abnormalities. The alignment is maintained. The intervertebral disc spaces are preserved. No locked or perched facet. Soft tissues and lung apices: Unremarkable. Clear lung apices. IMPRESSION: No acute traumatic injury in the cervical spine. I have personally reviewed the images and I agree with this report. WSN: [id number] Ordering Physician: Christiano Ge Dictated By: Haley Bah MD Dictated Date/Time: 01/21/24 0:02 am Reviewed By: Harvey Acevedo MD Signed By: Harvey Acevedo MD Signed Date/Time: 01/21/24 0:07 am Transcribed By: JOJO Transcribed Date/Time: 01/20/24 11:47 pm * Exam Date Time Procedure Performing Provider Status 01/20/24 8:[address] Head/Brain W/O Contrast Tova Hicks; Auth (Verified) Notes: (CT Head/Brain W/O Contrast) Reason For Exam: Brain mass or lesion;Other: RESULT: CT Head/Brain W/O Contrast CT Head/Brain W/O Contrast INDICATION: Reason: Other:; Brain mass or lesion; Clinical Question(s): Hematoma; Order Comment: TECHNIQUE: Noncontrast head CT using axial technique and reconstructed in axial and coronal planes.Iterative reconstruction techniques are used to optimize dose and image quality. COMPARISON: 01/15/2024, 12/25/2023. FINDINGS: Head Gauge Unit Operator view findings, lines and tubes: None. BRAIN AND EXTRA-AXIAL SPACES: No parenchymal hemorrhage, midline shift, or mass effect. Luke-white matter differentiation is wellpreserved. No acute infarct. Negative insular ribbon and hyperdense vessel signs. Ventricles, sulci, and basilar cisterns are normal. Incidental megacisterna magna. No white matter lesions. No subarachnoid hemorrhage. No subdural or epidural collection. CALVARIUM, SKULL BASE, AND SOFT TISSUES: No fractures or suspicious bony lesions. Mild left ethmoid sinus mucosal thickening The remaining Paranasal sinuses and mastoid air cells are clear. Visualized orbits and globes are intact. The extracranial soft tissues are unremarkable. IMPRESSION: No acute intracranial pathology. Mild left ethmoid sinus mucosal thickening. Correlate clinically for findings of mild sinusitis. WSN: [id number] Ordering Physician: Nidia Hawthorne Dictated By: Martinez Huang MD Dictated Date/Time: 01/20/24 9:46 am Reviewed By: Martinez Huang MD Signed By: Martinez Huang MD Signed Date/Time: 01/20/24 9:46 am Transcribed By: JOJO Transcribed Date/Time: 01/20/24 9:45 am Vital Signs Most recent to oldest [Reference Range]: 1 2 3 Height 178 cm (01/25/24 11:49 AM) 178 cm (01/23/24 10:46 PM) 178 cm (01/23/24 7:29 PM) Weight 116.7 kg (01/20/24 1:27 PM) Oxygen Saturation [94-100 %] 99 % (01/25/24 11:49 AM) 100 % (01/25/24 11:00 AM) 98 % (01/25/24 7:00 AM) Pulse Rate [55-90 bpm] 57 bpm (01/25/24 11:49 AM) 69 bpm (01/25/24 11:00 AM) 56 bpm (01/25/24 7:00 AM) Body Mass Index [18.5-24.99 kg/m2] 36.83 kg/m2 *>HHI* (01/20/24 1:27 PM) Blood Pressure [90-138/55-84 mm Hg] 134/83mm Hg (01/25/24 11:49 AM) 110/63mm Hg (01/25/24 11:00 AM) 122/49mm Hg (01/25/24 7:00 AM) Respiratory Rate [16-30 br/min] 18 br/min (01/25/24 11:49 AM) 18 br/min (01/25/24 11:00 AM) 18 br/min (01/25/24 7:00 AM) Temperature [96.8-100.4 DegF] 98.2 DegF (01/25/24 11:49 AM) 97.9 DegF (01/25/24 11:00 AM) 96.4 DegF *L* (01/25/24 7:00 AM) Liters per Minute 4 L/min (01/20/24 12:30 PM) 4 L/min (01/20/24 9:30 AM) 4 L/min (01/20/24 9:15 AM) Mode of Delivery (Oxygen) Room air (01/25/24 11:49 AM) Room air (01/25/24 11:00 AM) Room air (01/25/24 7:00 AM) Blood pressure sites Arm, left (01/25/24 11:49 AM) Arm, right (01/25/24 11:00 AM) Arm, right (01/25/24 7:00 AM) Temperature Route Oral (01/25/24 11:49 AM) Oral (01/25/24 11:00 AM) Temporal (01/25/24 7:00 AM) Dry Weight 116.7 kg (01/20/24 1:27 PM) Weight Obtained Via Patient/family stated (01/20/24 1:27 PM) Dry Weight Obtained Via Patient/family stated (01/20/24 1:27 PM) Social History Social History Type Response Smoking Status 5-9 cigarettes (betw een 1/4 to 1/2 pack)/day in last 30 days; Interested in cessation: No entered on: 6/12/23 Sex Sex Representation Male (finding) History and physical note * Luma AVILA, Christiano: PERFORM Event Display: History and Physical Hospital Authored Date: Patient: ??RAND WILKERSON ? Age:??43 Years?Sex:??Male?:??1980?? Chief Complaint/Reason for Consultation Seizure w/ HX Epilepsy History of Present Illness 43-year-old male with PMH of juvenile myoclonic seizures, bipolar disorder, polysubstance abuse??but negative talk screen on most recent admission, alcohol use disorder??but denies any alcohol use for the past few weeks,, COPD, multiple hospitalization??for breakthrough seizures??most recently??01/15,??comes in??for reportedly multiple witnessed seizures at home, at least 3??per documentation.?? EMS also found by family members.?Per documentation he was given??5 mg IM midazolam??by EMS??after he developed seizure-like activity??while en route to hospital??with resolution of seizure.?? In the ED he was given??Keppra 2.5 g, CT head was obtained and??reportedly had??2 brief episodes of seizure??for which she was given 4 mg IV Ativan after the second episode. ?? On my interview he??is sitting comfortably, he does not remember??anything from today morning??so unable to provide any details.?? He denies any??neck pain??to me, does report some headache which is??chronic for him??and unchanged today, denies any nausea or vomiting.?? He denies any fevers or chills, cough or runny nose or sore throat, dysuria, urgency or frequency or constipation or diarrheaat home. ??No cough reported. ??He denies any chest pain or shortness of breath or palpitation.?? With regards to his headaches??he takes??Tylenol and ibuprofen on a daily basis with resolution of headache, describes??frontal/bitemporal to me.?No associated motor weakness or sensory deficits.?? Is being admitted for further management. ? Review of Systems All other review of systems were negative with the exception of those noted above in the HPI.?? Objective Measurements?? Height: 178 cm (01/20/24) Weight: 116.7 kg (01/20/24) Dry Weight: 116.7 kg (01/20/24) Body Mass Index:??36.83 kg/m2??Critical (01/20/24) ? Vital Signs?? Temperature: 97.6 DegF (01/20/24 19:00:00) Temperature Route: Oral (01/20/24 19:00:00) Pulse Rate: 56 bpm (01/20/24 19:00:00) Respiratory Rate: 18 br/min (01/20/24 19:00:00) Systolic Blood Pressure: 125 mm Hg (01/20/24 19:00:00) Diastolic Blood Pressure: 70 mm Hg (01/20/24 19:00:00) Blood pressure sites: Arm, left (01/20/24 19:00:00) Mean Arterial Pressure: 100 mm Hg (01/20/24 14:22:00) Pulse Pressure: 55 mm Hg (01/20/24 19:00:00) Oxygen Saturation: 97 % (01/20/24 19:00:00) Liters per Minute: 4 L/min (01/20/24 12:30:00) Mode of Delivery (Oxygen): Room air (01/20/24 19:00:00) Early Warning Score: 5 (01/20/24 20:53:36) ? Intake/Output? 01/19 11:36 01/19 07:00 01/18 07:00 01/17 07:00 01/16 07:00 ?? 01/19 20:57 01/19 20:57 01/19 06:59 01/18 06:59 01/17 06:59 Intake ?0 ?0 ?0 ?0 ?0 Output ? 1250 ? 1250 ?0 ?0 ?0 Net Total ?-1250 ?-1250 ?0 ?0 ?0 ? Physical Exam Constitutional: Alert, in no acute distress. Head EENT: Extraocular muscle movement intact.??Moist mucous membranes.?? Neck: Supple. No JVD. Respiratory: Clear to auscultation. No wheezing or crackles. No use of accessory muscles. Cardiovascular: S1S2 regular. No murmurs, rubs or gallops. Gastrointestinal: Abdomen soft, non-tender, non-distended. Normal bowel sounds. Genitourinary: No CVA tenderness. Extremities: No lower extremity pitting??edema. No cyanosis or clubbing. Neurologic: AAOx3, Speech normal. No focal neurological deficits. Skin: No rash. Psychiatric: Normal mood and affect Assessment/Plan Diagnoses COPD (chronic obstructive pulmonary disease) ??(J44.9) 1. ??Breakthrough seizure ??(G40.919) 2. 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 ??Fall ??(W19.XXXA) 4. ??Headache ??(R51.9) 5. ??Bipolar disorder ??(F31.9) 6. ??Alcohol use disorder ??(F10.90) 7. ??Polysubstance use disorder ??(F19.90) 8. ??COPD without exacerbation ??(J44.9) 9. ??Tobacco user ??(Z72.0) ?? Breakthrough seizure (G40.919) ?Associated with??Juvenile myoclonic epilepsy (G40.B09),??Fall (W19.XXXA) ?Fall -No mention of fall in ED notes and patient cannot provide any information as he does not remember events from morning.??Unable to reach family.??CT head obtained in the ED was negative.??He does nothave any neck tenderness on my exam and has no focal weakness.??Later at the time of writing my note, I found ambulance sheet which mentions him being on the floor with face down.??Will obtain CT cervical spine -Neurology evaluation recommendation appreciated. -ED obtained antiepileptic levels prior to administering Keppra load. -UA, urine drug screen obtained by me -He received Keppra load, 4 mg IV Ativan in the ED and received 5 mg IM midazolam by EMS en route to the hospital.??Neurology recommending discontinuing Keppra, loading with Topamax 200 followed by 100 mg twice daily starting tonight, decreasing clonazepam to 10 mg twice daily, continuing home lamotrigine 300 mg twice daily, all these meds have been ordered -Continue every 4 neurocheck, telemetry monitoring -Seizure precautions -As needed IV Ativan for his seizure activity lasting more than 5 minutes per neurology, reach out to neurology on-call if he develops any more seizures -No driving until 6 months event free per [place] [employer] law ?? Headache (R51.9):??Etiology unclear concern for rebound headaches -Neurology recommending discontinuing Tylenol and ibuprofen which I have done.??Also recommending trial of prednisone 20 mg daily for 6 days in addition to Topamax as mentioned above for seizure. -No neck stiffness or fever or photophobia, low suspicion for meningitis ?? Bipolar disorder (F31.9):??continue sertraline, hold Zyprexa? Alcohol use disorder (F10.90):??denies drinking alcohol for the past few weeks, CIWA protocol with thiamine ?? Polysubstance use disorder (F19.90) Tobacco user (Z72.0) ? History of polysubstance use, denies any recreational drug use other than smoking cigarettes.??Nicotine patch as needed, urine drug screen is negative except for benzos which is seizure medication ?? COPD without exacerbation (J44.9):?DuoNebs as needed ?? VTE Prophylaxis:??VTE prophylaxis, start subcutaneous Lovenox tomorrow if CT cervical spine negative ?? Discharge Planning:? Code Status:??Full resuscitation, confirmed with patient ?Order Code Status:??Code Status Ordered ? Estimated Discharge Date ? Histories Allergies [...] ??Interested in cessation: No. ? Family History Not providing any family history ? Medications Home Medications Albuterol/Ipratropium (Combivent Respimat [...] Mouth?Daily at bedtime ? Inpatient Medications Medications (14) Active SCHEDULED: (9) Clobazam 10 mg Tablet (clobazam 10 mg oral tablet) ??10 mg, By Mouth, 2 times a day LamoTRIGINE 100 mg Tablet (lamotrigine 100 mg oral tablet) ??300 mg, By Mouth, 2 times a day NaCl 0.9% Flush 3ml (NaCL 0.9% Flush) ??3 mL, IV Push, Every 8 hours Olanzapine 5 mg Tablet (olanzapine 5 mg oral tablet) ??5 mg, By Mouth, Daily at bedtime PredniSONE 20 mg Tablet (predniSONE 20 mg oral tablet) ??20 mg, By Mouth, Daily Sertraline 50 mg Tablet (sertraline 50 mg oral tablet) ??100 mg, By Mouth, Daily Thiamine 100 mg Tablet (Vitamin B1 100 mg oral tablet) ??100 mg, By Mouth, Daily Topiramate 100 mg Tablet (Topiramate Tablet) ??100 mg, By Mouth, 2 times a day Trazodone 50 mg Tablet (traZODone 50 mg oral tablet) ??50 mg, By Mouth, Daily at bedtime CONTINUOUS: (0) PRN: (5) Docusate Sodium 100 mg Capsule (Docusate Sodium Capsule) ??100 mg 1 capsule, By Mouth, 2 times a day Melatonin 3 mg Tablet (Melatonin Tablet) ??3 mg, By Mouth, Daily at bedtime NaCl 0.9% Flush 3ml (NaCL 0.9% Flush) ??3 mL, IV Push, Every 8 hours Polyethylene Glycol 17 Gm Powder (MiraLax Powder) ??17 Gm 1 pack/packet, By Mouth, Daily Senna Tablet ??8.6 mg 1 tablet, By Mouth, 2 times a day ? Results Recent Labs BLOOD COUNT & DIFF WBC 4.0 k/mm3 ()?? 01/20/2024 07:52 RBC 4.64 m/mm3 (Low)?? 01/20/2024 07:52 Hgb 14.2 Gm/dL ()?? 01/20/2024 07:52 Hct 44.7 % ()?? 01/20/2024 07:52 MCV 96.3 femtoliters (High)?? 01/20/2024 07:52 MCH 30.6 pg ()?? 01/20/2024 07:52 MCHC 31.8 Gm/dL (Low)?? 01/20/2024 07:52 Platelet Count 143 k/mm3 (Low)?? 01/20/2024 07:52 RDW-SD 47.8 femtoliters (High)?? 01/20/2024 07:52 MPV 11.8 femtoliters ()?? 01/20/2024 07:52 Nucleated RBC (Automated) 0.0 #/100 WBC'S ()?? 01/20/2024 07:52 Abs. NRBC 0.0 k/mm3 ()?? 01/20/2024 07:52 Abs. Neut 1.7 k/mm3 ()?? 01/20/2024 07:52 Abs. Lymph 1.7 k/mm3 ()?? 01/20/2024 07:52 Abs. [place] 0.3 k/mm3 (Low)?? 01/20/2024 07:52 Abs. Eo 0.2 k/mm3 ()?? 01/20/2024 07:52 Abs. Baso 0.0 k/mm3 ()?? 01/20/2024 07:52 Neut % 42.6 % (Low)?? 01/20/2024 07:52 Lymph % 42.0 % ()?? 01/20/2024 07:52 [place] % 8.3 % ()?? 01/20/2024 07:52 Eos % 5.3 % ()?? 01/20/2024 07:52 Baso % 0.8 % ()?? 01/20/2024 07:52 Imm Gran 1.0 % ()?? 01/20/2024 07:52 Abs. Imm Gran 0.0 k/mm3 ()?? 01/20/2024 07:52 ?? CHEM GENERAL Sodium 140 mmol/L ()?? 01/20/2024 07:52 Potassium 4.2 mmol/L ()?? 01/20/2024 07:52 Chloride 100 mmol/L ()?? 01/20/2024 07:52 Bicarbonate Level 14 mmol/L (Low)?? 01/20/2024 07:52 Anion Gap 26 (High)?? 01/20/2024 07:52 Glucose Level 115 mg/dL (High)?? 01/20/2024 07:52 Glucose, POC 100 mg/dL (High)?? 01/20/2024 17:12 BUN 20 mg/dL ()?? 01/20/2024 07:52 Creatinine-Blood 0.94 mg/dL ()?? 01/20/2024 07:52 Estimated GFR Creatinine 104 ML/MIN/1.73 M2 ()?? 01/20/2024 07:52 Calcium 9.0 mg/dL ()?? 01/20/2024 07:52 Magnesium 1.8 mg/dL ()?? 01/20/2024 07:52 Protein, Total 7.2 Gm/dL ()?? 01/20/2024 07:52 Albumin 4.3 Gm/dL ()?? 01/20/2024 07:52 AG Ratio 1.5 ()?? 01/20/2024 07:52 Alkaline Phosphatase 87 units/L ()?? 01/20/2024 07:52 AST (SGOT) 17 units/L ()?? 01/20/2024 07:52 ALT (SGPT) 9 units/L ()?? 01/20/2024 07:52 Bilirubin, Total 0.2 mg/dL ()?? 01/20/2024 07:52 Lactate 1.0 mmol/L ()?? 01/20/2024 17:15 ?? ENDOCRINE/TUMOR MARKER TSH 5.31 uIU/mL (High)?? 01/20/2024 07:52 Free T4 1.14 ng/dL ()?? 01/20/2024 07:52 ?? TOXICOLOGY/TDM Ethanol, Serum or Plasma NONE DETECTED mg/dL ()?? 01/20/2024 07:52 Barbiturate Screen, Urine NONE DETECTED ()?? 01/20/2024 12:00 Cannabinoid Screen, Urine NONE DETECTED ()?? 01/20/2024 12:00 Cocaine Metabolite Screen, Urine NONE DETECTED ()?? 01/20/2024 12:00 Benzodiazepine Screen, Urine POSITIVE (Abnormal)?? 01/20/2024 12:00 Amphetamine Screen, Urine NONE DETECTED ()?? 01/20/2024 12:00 Opiate Screen, Urine NONE DETECTED ()?? 01/20/2024 12:00 Levetiracetam Level 20.20 mg/L ()?? 01/20/2024 07:52 ?? UA/URINALYSIS Appear/Color, Urine COLORLESS ()?? 01/20/2024 12:00 Clarity CLEAR ()?? 01/20/2024 12:00 Specific [place], Urine 1.018 ()?? 01/20/2024 12:00 pH, Urine 7.0 ()?? 01/20/2024 12:00 Albumin, Urine NEGATIVE ()?? 01/20/2024 12:00 Glucose, Urine NEGATIVE ()?? 01/20/2024 12:00 Ketones, Urine NEGATIVE ()?? 01/20/2024 12:00 Bilirubin, Urine NEGATIVE ()?? 01/20/2024 12:00 Hemoglobin, Urine NEGATIVE ()?? 01/20/2024 12:00 Nitrite, Urine NEGATIVE ()?? 01/20/2024 12:00 Leukocyte, Urine NEGATIVE ()?? 01/20/2024 12:00 Urobilinogen NORMAL mg/dL ()?? 01/20/2024 12:00 WBC's, Urine <1 /HPF ()?? 01/20/2024 12:00 RBC's, Urine 1 /HPF ()?? 01/20/2024 12:00 Squamous Epith <1 /HPF ()?? 01/20/2024 12:00 Mucus SLIGHT /LPF ()?? 01/20/2024 12:00 Culture Indication CULTURE NOT INDICATED ()?? 01/20/2024 12:00 ?? URINE OTHER Malb/Creat Ratio Unable to calculate mg/Gm ()?? 01/20/2024 12:00 Urine Creat For Micro Alb 47.8 mg/dL ()?? 01/20/2024 12:00 Micro-Albumin <12.0 mg/L ()?? 01/20/2024 12:00 Est Creatinine Clearance 105.97 mL/min ()?? 01/20/2024 13:39 ? EKG study * Event Display: ECG 12-Lead Authored Date: Please click on pdf link to open report * Event Display: ECG 12-Lead Authored Date: Ventricular Rate: 75 BPM Atrial Rate: 75 BPM P-R Interval: 198 ms QRS Duration: 108 ms Q-T Interval: 398 ms QTC Calculation(Bazett): 444 ms P [place]: 30 degrees R [place]: 11 degrees T [place]: 22 degrees Normal sinus rhythm Normal ECG When compared with ECG of 15-JAN-2024 13:11, No significant change was found Confirmed by Shashi Fajardo ([id number]) on 01/21/2024 7:17:40 AM [place]: Shashi Fajardo [facility] Progress note * RenatoTherese micthell RN: VERIFY, PERFORM, MODIFY, SIGN Event Display: Progress Note Hospital Authored Date: [id number] Patient: RAND WILKERSON [facility]: [id number] Age: 43 years Sex: Male : 1980 Associated Diagnoses: None Author: Therese Gross RN Findings Problem Related to Alteration in Neurological : Alteration in Neurological Function/new 01/25/2024 9:00 EST Alteration in Neuro status Related to [...] understanding of rehab plan, Pt/caregiver will state understanding of disease process, Pt/caregiver will state understanding of plan/goals of care Interventions, Neurological Assess/monitor for gaze pattern/extraocular movements, Assess/monitor neurologic status, Assess/monitor VS per unit standards & prn, Call/Report variances in assessments to provider, Keep patient's head & body in good alignment, Maintain HOB at least 30 deg, Maintain normothermia, report temp >101.5 F, Maintain patient safety if unsteady gait, Maintain strict intake & output, Monitor for headaches, nausea, vomiting, Monitor speech fluency, aphasia, word finding difficulty, Physical assessment per unit standards, Provide emotional support to Pt/caregiver, Teach & encourage deep breath & cough exercises, Teach pt/caregiver on plan of care, treatment, s/s & meds Goals/Interventions, Neurological Yes Neurological, Problem Start 01/20/2024 13:33 Reviewed plan with, Neurological Patient Patient Progression, Neurological Pt progressing according to plan . Nursing Data Neurological Data. : Neurological Data. 01/25/2024 9:00 EST Tongue Disposition Midline Neurological Symptoms Headache: persistent, changing or sudden, History of seizures Level of Consciousness Full [...] Obeys commands Verbal Response-Adult Oriented and converses [place] Coma Score 15 Neurological Comments complains of constant headache 5/10 Pain Location Head Pain Intensity 5 1 - 10 Pain Scale Score 5 Neuro WNL except Eyes and Movements Conjugate gaze: Move in same direction at same speed Memory Intact Swallow - Neuro Normal . Evaluation Pt alert and oriented x 4. Pt's speech is clear and is able to follow all simple and complex commands. Pt taking pills whole with water. Pt endorsing headache 5/10 thats constant however denies any dizziness or any visual changes. +PEERLA. Pt is moving all extremities equally and spontaneously with5/5 strength bilaterally in the upper and lower extremities. Denies any numbness, tingling or pain.Pt is on tele box #5, sinus nick. Pt's lung sounds are clear throughout on room, denies any SOB orchest pain. + bowel sounds in all 4 quadrants, last BM was 01/23. Pt is voiding using the urinal and ambulating to the bathroom with standby assist and is voiding without complaints. Report given to S3 RN, pt transported off unit accompanied by staff @ [phone]. * Misael Gong RN: SIGN, VERIFY, PERFORM Event Display: Progress Note Hospital Authored Date: Patient: RAND WILKERSON Age: 43 years Sex: Male : 1980 Associated Diagnoses: None Author: Misael Gong RN Findings Narrative/Incidental Pt stable on shift. Pt is a/ox4, gcs 15, alert and verbal, with some memory impairment and delayed responsiveness. Pt is ambulatory with standby assist only due to the recent sz activity. Pt has IV access in right arm, flushes well but pt reports some mild pain upon flushing. Pt on tele. Pt on RA, denies any resp difficulty. Pt had BM today, had been reporting last BM as 01/11, although this was questionable. Pt uses urinal well, adequate UOP. Pt has chronic back pain issues. Skin intact. Pt likely to DC soon to a rehab facility. Pt had no significant issues thru out shift. . Discharge Information Case Management Discharge Plan : Case Management Discharge Plan Data 01/17/2024 17:35 EST Discharge Level of Care at Discharge Homehealth/VNA Discharge VNA/Hospice/Home Care [facility] [phone] 01/17/2024 15:17 EST Discharge Level of Care at Discharge Homehealth/VNA Discharge VNA/Hospice/Home Care [facility] [phone] Name of Agency #1 [facility] Categories #1 Retirement * Romina Hairston DO: MODIFY Romina Hairston DO: MODIFY Event Display: Progress Note Hospital Authored Date: Patient: ??RAND WILKERSON ? Age:??43 Years?Sex:??Male?:??1980?? Subjective No further episodes of seizure activity Review of Systems ??All other systems were reviewed and are negative except for the ones mentioned above. Past Medical History Active Problems(8) Alcohol use disorder Bipolar disorder COPD without exacerbation COVID-19 Juvenile myoclonic epilepsy Obese class II Polysubstance abuse Tobacco user ? Objective Vital Signs?? Temperature: 97.3 DegF (01/24/24 15:00:00) Temperature Route: Temporal (01/24/24 15:00:00) Pulse Rate: 75 bpm (01/24/24 15:00:00) Respiratory Rate: 18 br/min (01/24/24 15:00:00) Systolic Blood Pressure: 118 mm Hg (01/24/24 15:00:00) Diastolic Blood Pressure: 63 mm Hg (01/24/24 15:00:00) Blood pressure sites: Arm, right (01/24/24 15:00:00) Mean Arterial Pressure: 89 mm Hg (01/23/24 22:46:00) Pulse Pressure: 55 mm Hg (01/24/24 15:00:00) Oxygen Saturation: 98 % (01/24/24 15:00:00) Mode of Delivery (Oxygen): Room air (01/24/24 15:00:00) Early Warning Score: 2 (01/24/24 16:10:08) ?? Intake/Output? 01/19 11:36 01/23 07:00 01/22 07:00 01/21 07:00 01/20 07:00 ?? 01/23 16:48 01/23 16:48 01/23 06:59 01/22 06:59 01/21 06:59 Intake ? 2040 ?120 ?0 ?840 ? 1080 Output ? 7640 ?400 ?950 ? 2140 ? 1725 Net Total ?-5600 ? -280 ? -950 ?-1300 ? -645 ? Urine Count ?1 ?1 ?0 ?0 ?0 ? Physical Exam General: Resting in bed, comfortable appearing, NAD HEENT: Normocephalic, atraumatic. Mucous membranes moist.?? Cardiac: Regular rate and rhythm. Normal S1 and S2 heard.?? Respiratory: Lung sounds clear to auscultation Abdomen: Soft, non-tender, non-distended Extremities: No swelling or erythema. Full range of motion is noted at all joints. Skin: Skin is warm and dry Neurological: AAOx3. No focal deficits. forgetful Psychiatric: Normal mood and affect. Good judgement and insight.? _ Inpatient Medications Medications (21) Active SCHEDULED: (15) Clobazam 10 mg Tablet (clobazam 10 mg oral tablet) ??10 mg, By Mouth, Daily in AM Clobazam 10 mg Tablet (clobazam 10 mg oral tablet) ??15 mg, By Mouth, Daily at bedtime Enoxaparin 40 mg Inj (Enoxaparin Inj) ??40 mg 0.4 mL, Subcutaneous Injection, Daily Folic Acid 1 mg Tablet (Folic Acid Tablet) ??1 mg, By Mouth, Daily LamoTRIGINE 100 [...] ??5 mg, By Mouth, Daily at bedtime Polyethylene Glycol 17 Gm Powder (MiraLax Powder) ??17 Gm 1 pack/packet, By Mouth, Daily PredniSONE 20 mg Tablet (predniSONE 20 mg oral tablet) ??20 mg, By Mouth, Daily Pyridoxine 50 mg Tablet (Pyridoxine Tablet) ??50 mg, By Mouth, Daily Sertraline 50 mg Tablet (sertraline 50 mg oral tablet) ??100 mg, By Mouth, Daily Thiamine 100 mg Tablet (Vitamin B1 100 mg oral tablet) ??100 mg, By Mouth, Daily Topiramate 100 mg Tablet (Topiramate Tablet) ??100 mg, By Mouth, 2 times a day Trazodone 50 mg Tablet (traZODone 50 mg oral tablet) ??50 mg, By Mouth, Daily at bedtime CONTINUOUS: (0) PRN: (6) Lactulose 20 Gm/30mL Syrup (lactulose 10 gm/15 ml oral syrup) ??20 Gm 30 mL, By Mouth, 3 times a day Lorazepam 2 mg Inj [...] tablet, By Mouth, 2 times a day ? Results Recent Labs CARDIAC CK, Total 164 units/L ()?? 01/23/2024 09:08 CHEM GENERAL Sodium 136 mmol/L ()?? 01/24/2024 08:43 Potassium 3.5 mmol/L (Low)?? 01/24/2024 08:43 Chloride 102 mmol/L ()?? 01/24/2024 08:43 Bicarbonate Level 20 mmol/L (Low)?? 01/24/2024 08:43 Anion Gap 14 ()?? 01/24/2024 08:43 Glucose Level 159 mg/dL (High)?? 01/24/2024 08:43 BUN 30 mg/dL (High)?? 01/24/2024 08:43 Creatinine-Blood 0.96 mg/dL ()?? 01/24/2024 08:43 Estimated GFR Creatinine 101 ML/MIN/1.73 M2 ()?? 01/24/2024 08:43 Calcium 9.1 mg/dL ()?? 01/24/2024 08:43 Lactate 1.7 mmol/L ()?? 01/23/2024 09:08 URINE OTHER Est Creatinine Clearance 103.76 mL/min ()?? 01/24/2024 09:54 ? 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 Currently Keppra levels 20.20, no other notable illnesses/trauma/illicit drug use. Clinical picture consistent with medically refractory JENNI. His AED were altered to stop Keppra, start Topamax and continue Lamotrigine while decreasing Clobazam. He was also started on Prednisone whilst discontinuing NSAIDs/Tylenol for headache deemed likely analgesic rebound headache.?? On 01/22 had another episode of seizure??thus AED up-titrated. Pending further improvement in seizures. ?? Breakthrough seizure (G40.919) ? 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 ??-Admission 01/14-01/16 for multiple seizures and falls, though Keppra level was 73.7, per Neurology suspicion was Keppra level should have been higher if patient was therapeutic on outpatient Keppraas he also received a Keppra load prior to the level of 73.7, now returns due to multiple witnessedseizures at home. He denies any recent illness, any trauma, any ETOH, and/or illicit drug use. -Received Keppra load, Ativan in the ED and received midazolam by EMS en route to the hospital. -Keppra level obtained prior to Keppra load was 20, lactate 17 downtrended to normal, CK wnl, ETOH level negative -On 01/22??AM had seizure??episode, reached out to Neurology for further uptitration of AED, lactate and CK??wnl Plan: -Neurology recommending discontinuing Keppra, loading with Topamax 200 followed by 100 mg twice daily, increasing Clobazam to 10 mg in AM and 15mg qhs, continuing home lamotrigine 300 mg twice daily -Neurology appt: Epilepsy clinic for 01/30 at 3:00pm. To obtain AED levels at the time. -No driving until 6 months event free per [place] state law ?? Headache (R51.9): Etiology unclear concern for rebound headaches, possible analgesic rebound headaches in the setting of daily Tylenol and Ibuprofen. CTH negative as above. No neck stiffness or feveror photophobia, low suspicion for meningitis. Plan: -Neurology recommending trial of prednisone 20 mg daily for 6 days till 01/24 in addition to Topamax as mentioned above for seizure. ?? Normal anion gap metabolic acidosis ??(E87.20): improving. Bicarb 14->19->17, normal AG. No diarrhea noted, no IVF. Not hyper or hypokalemia to indicate etiology of RTA.??If were to decline again, obtain urine lytes.? Anemia (D64.9), Thrombocytopenia (D69.6):??Resolved: Seems to have a hemoglobin level of around 13.5. Also has a platelet count of 144. He is definitely not having any bleeding and no evidence of infections. Looks like his hemoglobin has fluctuated in the past around 12. Plt count has also been 120-140 in the past year. Iron panel normal. Currently Plt count 150, resolved??and Hgb 14.7, resolved.??Continue to monitor outpatient. ? Chronic medical conditions: Bipolar disorder (F31.9):??C/w Trazodone 50 mg daily, sertraline 100 mg daily, Zyprexa 5 mg daily at bedtime Polysubstance abuse (F19.10), Alcohol use disorder (F10.90):??Alcohol/Nicotine use in past. Consider AUD treatment as outpatient especially with correlation to seizure activity. COPD without exacerbation (J44.9):??Duo-Nebs prn currently. Resume home Combivent inhaler, no PFTs on file, consider testing for this as outpatient. ?? Quality Metrics: VTE Prophylaxis:??Lovenox Diet: Regular Code: Full ? Plan and care discussed with attending physician Dr Hairston ?? Jessica Lezama PGY-3 Internal Medicine Resident ? * Romina Hairston DO: PERFORM Event Display: Progress Note Hospital Authored Date: Attending Attestation: I have seen and evaluated this patient.?? I have discussed the case and its management with the resident and agree with the findings and plan as documented in the resident???s note. Consult note * Akbar NUÑEZ, Kira M: MODIFY, MODIFY, MODIFY, MODIFY, PERFORM Event Display: Consultation Note Authored Date: Patient: ??RAND WILKERSON ? Age:??43 Years?Sex:??Male?:??1980?? Chief Complaint/Reason for Consultation Breakthrough seizure History of Present Illness Mr. Mullen is a 43-year-old male with PMH significant for Bipolar disorder, JENNI (Currently maintained on Clobazam 20mg BID, Lamictal 300mg BID, and Keppra 1500mg BID; previously on Dilantin)),??ETOH and substance use disorder (reports 3 drinks per day, former use of cocaine and ecstasy, but patient reports no ETOH since prior to last admission), obesity, and multiple hospitalizations for??breakthrough seizures (some previously in the setting of medication noncompliance,??as well as??COVID infection) who was just evaluated on 01/15 for??seizures at home, who returns today for multiple witnessed seizures at home. Patient is unable to provide any details at this time, but clinical documentation notes at least 3 seizures at home. Upon EMS arrival, patient alert, however seizure-like activity while en route for which he received 5mg IM midazolam, with seizure-like activity stopping shortlythereafter. In the ED, patient arousable, and following some commands, but not answering questions.He was loaded with Keppra 2.5gm, CT Head nonacute. While in the ED, patient with brief seizure-likeactivity that self resolved, however again with return of seizure-like activity for which he was administered 4mg IV Ativan. He denies any recent illness, any trauma, any??ETOH, and/or illicit drug use. In the ED, Utox + benzodiazepines, but otherwise negative. ETOH level negative. +Lactate (17.4) that significantly improved. Keppra level: 20.20. Awaiting further AED levels. ?? Notably, patient reports daily headaches, described as left temporal and/or bilateral temporal headache that is pounding headache. At worst, 5/10. Takes Tylenol and Ibuprofen daily ?? Review of Systems Constitutional: Denies fever/chills. HEENT: Denies syncope or lightheadedness.??Reports daily??headache. Denies recent loss or change invision. Cardiovascular: Denies chest pain and/or palpitations. Denies shortness of breath.?? Respiratory: Denies SOB/dyspnea. ?? GI: Denies N/V/D. Denies abdominal discomfort. : Denies dysuria, or nocturia. Denies any other urinary symptoms. Neuro: Denies syncope or lightheadedness.??Reports daily??headache. Denies recent loss or change invision. Denies recent changes to sensation. Denies weakness. Musculoskeletal: Denies musculoskeletal pain ?? Objective Vital Signs?? Temperature: 98.1 DegF (01/20/24:27:00) Temperature Route: Oral (01/20/24:27:00) Pulse Rate: 62 bpm (01/20/24 13:27:00) Respiratory Rate:??15 br/min??Low (01/20/24:27:) Systolic Blood Pressure:??145 mm Hg??High (01/20/24:27:00) Diastolic Blood Pressure: 78 mm Hg (01/20/24 13:27:00) Blood pressure sites: Arm, left (01/20/24:27:00) Mean Arterial Pressure: 100 mm Hg (01/20/24:27:00) Pulse Pressure: 67 mm Hg (01/20/24:27:00) Oxygen Saturation: 100 % (01/20/24:27:00) Liters per Minute: 4 L/min (01/20/24 12:30:00) Mode of Delivery (Oxygen): Room air (01/20/24 13:27:00) Early Warning Score: 3 (01/20/24 13:53:21) ? [place] Coma Scale Nica Coma Score: 14 (01/20/24 08:27:00) Motor Response-Adult: Obeys commands (01/20/24 08:27:00) Response Eye Opening: Spontaneously (01/20/24 08:27:00) Verbal Response-Adult: Disoriented and converses (01/20/24 08:27:00) ? Physical Exam General: ??43-year-old male, who appears stated age. Mildly lethargic and mildly altered, but sustained wakefulness and follows commands. Responds to questioning with limited details. Speech mildly slurred Integ: Skin is warm, dry and intact. No diaphoresis.?? HEENT: Eyes symmetrical. Pupils 2mm, equally round, regular, and responsive to light. Eyes cross midline bilaterally. No nystagmus. Hearing grossly intact.?? Respiratory: Respirations even and unlabored. GI: Abd soft, and nondistended. Extremities: warm and perfused. Neurological: Mental status: Lethargic and mildly altered, but oriented to place, and situation. Answers some questions and follows some commands. Cranial Nerves: II: Pupils 2mm equally round, regular and reactive to light [...] Musculoskeletal development appropriate for age and gender. No tremor or shaking during exam Strength Well Head Pumper: L: 5/5? R: 5/5 Deltoids: L: 5/5? R: 5/5 Biceps: L: 5/5? R: 5/5 Triceps: L: 5/5? R: 5/5 Lower extremities: L: 5/5? R: 5/5 Sensory: Sensation intact in all extremities. No neglect to double sided stimulation Coordination: Finger to nose without dysmetria Gait: Deferred. ?? Assessment/Plan 43-year-old male with PMH significant for Bipolar disorder, JENNI (Currently maintained on Clobazam 20mg BID, Lamictal 300mg BID, and Keppra 1500mg BID; previously on Dilantin and Depakote),??ETOH and substance use disorder (former use of cocaine and ecstasy, but patient reports no ETOH since prior to last admission), obesity, and multiple hospitalizations for??breakthrough seizures (some previously in the setting of medication noncompliance,??as well as??COVID infection) who was just evaluated on 01/15 for??seizures at home, who returns today for multiple witnessed seizures at home. Patient isunable to provide any details at this time, but clinical documentation notes at least 3 seizures at home. Upon EMS arrival, patient alert, however seizure-like activity while en route for which he received 5mg IM midazolam, with seizure-like activity stopping shortly thereafter. In the ED, patient arousable, and following some commands, but not answering questions. He was loaded with Keppra 2.5gm, CT Head nonacute. While in the ED, patient with brief seizure-like activity that self resolved, however again with return of seizure-like activity for which he was administered 4mg IV Ativan. He denies any recent illness, any trauma, any??ETOH, and/or illicit drug use. In the ED, Utox + benzodiazepines, but otherwise negative. ETOH level negative. +Lactate (17.4) that significantly improved. Kepp ra level: 20.20. Awaiting further AED levels. ?? Notably, patient reports daily headaches, described as left temporal and/or bilateral temporal headache that is pounding headache. At worst, 07/15. Takes Tylenol and Ibuprofen daily. Recent sleep study with mild THI. ? DDx: JENNI with breakthrough seizure of unclear etiology. ?Daily headaches - possible analgesic rebound headaches in the setting of daily Tylenol and Ibuprofen? Recommendations: -??Load with Topamax 200mg; followed with 100mg BID starting tonight - Please decrease Clobazam??to 10mg BID - Continue home Lamotrigine 300mg BID - Discontinue Keppra - For??headaches -??no Tylenol or Ibuprofen ? - Trial Prednisone 20mg daily for 6days ? - Topamax should also help -??Follow up AED levels - Toxic/metabolic work up per primary team to rule out any underlying contributing factors -??q4hr neuro checks, VS, and??telemetry monitoring - Maintain seizure precautions - PRN IV Ativan 1gm ONLY for seizure activity lasting >5min -??Per [place]??State law, no driving until 6months event??free - Remainder of care per primary team ? Thank you. Neurology will follow. Please jr with any questions/concerns ?? d/w Dr. Cruz d/w Christiano Desai ? Histories Past Medical History/Problem List Active Problems(8) Alcohol [...] ? Stroke Treatment Details Service Categories #1: Retirement Able to close lips, pucker and blow out: Yes Able to swallow own secretions: Yes Absence of dysarthria/dysphonia/aphonia: Yes No delay in swallowing (tsp): Yes Patient alert: Yes Swallows water without choking (60cc): Yes Swallows water without choking (tsp): Yes Voice sounds clear, not gurgly (60cc): Yes Voice sounds clear, not gurgly (tsp): Yes Voluntary Cough: Yes ?? Medications Home Medications Albuterol/Ipratropium (Combivent Respimat [...] Mouth?Daily at bedtime ? Inpatient Medications Medications (16) Active SCHEDULED: (8) Clobazam 10 mg Tablet (clobazam 10 mg oral tablet) ??20 mg, By Mouth, 2 times a day Ibuprofen 600 mg Tablet (Motrin Tablet) ??600 mg, By Mouth, Once Keppra 500mg Tablet (Keppra 500 mg oral tablet) ??1,500 mg, By Mouth, 2 times a day LamoTRIGINE 100 mg Tablet (lamotrigine 100 mg oral tablet) ??300 mg, By Mouth, 2 times a day NaCl 0.9% Flush 3ml (NaCL 0.9% Flush) ??3 mL, IV Push, Every 8 hours Sertraline 50 mg Tablet (sertraline 50 mg oral tablet) ??100 mg, By Mouth, Daily Thiamine 100 mg Tablet (Vitamin B1 100 mg oral tablet) ??100 mg, By Mouth, Daily Trazodone 50 mg Tablet (traZODone 50 mg oral tablet) ??50 mg, By Mouth, Daily at bedtime CONTINUOUS: (2) Lactated Ringers (1000 mL) Cont IV 1,000 mL (Bolus LR 1,000 mL) ??1,000 mL, IV Infusion NaCL 0.9% (1000 mL) Cont IV 1,000 mL (Bolus NaCL 0.9% 1,000 mL) ??1,000 mL, IV Infusion PRN: (6) Acetaminophen 325 mg Tablet (Acetaminophen Tablet) ??650 mg, By Mouth, Every 4 hours Docusate Sodium 100 mg Capsule (Docusate Sodium Capsule) ??100 mg 1 capsule, By Mouth, 2 times a day Melatonin 3 mg Tablet (Melatonin Tablet) ??3 mg, By Mouth, Daily at bedtime NaCl 0.9% Flush 3ml (NaCL 0.9% Flush) ??3 mL, IV Push, Every 8 hours Polyethylene Glycol 17 Gm Powder (MiraLax Powder) ??17 Gm 1 pack/packet, By Mouth, Daily Senna Tablet ??8.6 mg 1 tablet, By Mouth, 2 times a day ? Results Recent Labs BLOOD COUNT & DIFF WBC 4.0 k/mm3 ()?? 01/20/2024 07:52 RBC 4.64 m/mm3 (Low)?? 01/20/2024 07:52 Hgb 14.2 Gm/dL ()?? 01/20/2024 07:52 Hct 44.7 % ()?? 01/20/2024 07:52 MCV 96.3 femtoliters (High)?? 01/20/2024 07:52 MCH 30.6 pg ()?? 01/20/2024 07:52 MCHC 31.8 Gm/dL (Low)?? 01/20/2024 07:52 Platelet Count 143 k/mm3 (Low)?? 01/20/2024 07:52 RDW-SD 47.8 femtoliters (High)?? 01/20/2024 07:52 MPV 11.8 femtoliters ()?? 01/20/2024 07:52 Nucleated RBC (Automated) 0.0 #/100 WBC'S ()?? 01/20/2024 07:52 Abs. NRBC 0.0 k/mm3 ()?? 01/20/2024 07:52 Abs. Neut 1.7 k/mm3 ()?? 01/20/2024 07:52 Abs. Lymph 1.7 k/mm3 ()?? 01/20/2024 07:52 Abs. [place] 0.3 k/mm3 (Low)?? 01/20/2024 07:52 Abs. Eo 0.2 k/mm3 ()?? 01/20/2024 07:52 Abs. Baso 0.0 k/mm3 ()?? 01/20/2024 07:52 Neut % 42.6 % (Low)?? 01/20/2024 07:52 Lymph % 42.0 % ()?? 01/20/2024 07:52 [place] % 8.3 % ()?? 01/20/2024 07:52 Eos % 5.3 % ()?? 01/20/2024 07:52 Baso % 0.8 % ()?? 01/20/2024 07:52 Imm Gran 1.0 % ()?? 01/20/2024 07:52 Abs. Imm Gran 0.0 k/mm3 ()?? 01/20/2024 07:52 ?? CHEM GENERAL Sodium 140 mmol/L ()?? 01/20/2024 07:52 Potassium 4.2 mmol/L ()?? 01/20/2024 07:52 Chloride 100 mmol/L ()?? 01/20/2024 07:52 Bicarbonate Level 14 mmol/L (Low)?? 01/20/2024 07:52 Anion Gap 26 (High)?? 01/20/2024 07:52 Glucose Level 115 mg/dL (High)?? 01/20/2024 07:52 Glucose, POC 119 mg/dL (High)?? 01/20/2024 07:33 BUN 20 mg/dL ()?? 01/20/2024 07:52 Creatinine-Blood 0.94 mg/dL ()?? 01/20/2024 07:52 Estimated GFR Creatinine 104 ML/MIN/1.73 M2 ()?? 01/20/2024 07:52 Calcium 9.0 mg/dL ()?? 01/20/2024 07:52 Magnesium 1.8 mg/dL ()?? 01/20/2024 07:52 Protein, Total 7.2 Gm/dL ()?? 01/20/2024 07:52 Albumin 4.3 Gm/dL ()?? 01/20/2024 07:52 AG Ratio 1.5 ()?? 01/20/2024 07:52 Alkaline Phosphatase 87 units/L ()?? 01/20/2024 07:52 AST (SGOT) 17 units/L ()?? 01/20/2024 07:52 ALT (SGPT) 9 units/L ()?? 01/20/2024 07:52 Bilirubin, Total 0.2 mg/dL ()?? 01/20/2024 07:52 Lactate 0.6 mmol/L ()?? 01/20/2024 12:25 ?? ENDOCRINE/TUMOR MARKER TSH 5.31 uIU/mL (High)?? 01/20/2024 07:52 Free T4 1.14 ng/dL ()?? 01/20/2024 07:52 ?? TOXICOLOGY/TDM Ethanol, Serum or Plasma NONE DETECTED mg/dL ()?? 01/20/2024 07:52 Barbiturate Screen, Urine NONE DETECTED ()?? 01/20/2024 12:00 Cannabinoid Screen, Urine NONE DETECTED ()?? 01/20/2024 12:00 Cocaine Metabolite Screen, Urine NONE DETECTED ()?? 01/20/2024 12:00 Benzodiazepine Screen, Urine POSITIVE (Abnormal)?? 01/20/2024 12:00 Amphetamine Screen, Urine NONE DETECTED ()?? 01/20/2024 12:00 Opiate Screen, Urine NONE DETECTED ()?? 01/20/2024 12:00 Levetiracetam Level 20.20 mg/L ()?? 01/20/2024 07:52 ?? UA/URINALYSIS Appear/Color, Urine COLORLESS ()?? 01/20/2024 12:00 Clarity CLEAR ()?? 01/20/2024 12:00 Specific [place], Urine 1.018 ()?? 01/20/2024 12:00 pH, Urine 7.0 ()?? 01/20/2024 12:00 Albumin, Urine NEGATIVE ()?? 01/20/2024 12:00 Glucose, Urine NEGATIVE ()?? 01/20/2024 12:00 Ketones, Urine NEGATIVE ()?? 01/20/2024 12:00 Bilirubin, Urine NEGATIVE ()?? 01/20/2024 12:00 Hemoglobin, Urine NEGATIVE ()?? 01/20/2024 12:00 Nitrite, Urine NEGATIVE ()?? 01/20/2024 12:00 Leukocyte, Urine NEGATIVE ()?? 01/20/2024 12:00 Urobilinogen NORMAL mg/dL ()?? 01/20/2024 12:00 WBC's, Urine <1 /HPF ()?? 01/20/2024 12:00 RBC's, Urine 1 /HPF ()?? 01/20/2024 12:00 Squamous Epith <1 /HPF ()?? 01/20/2024 12:00 Mucus SLIGHT /LPF ()?? 01/20/2024 12:00 Culture Indication CULTURE NOT INDICATED ()?? 01/20/2024 12:00 ?? URINE OTHER Malb/Creat Ratio Unable to calculate mg/Gm ()?? 01/20/2024 12:00 Urine Creat For Micro Alb 47.8 mg/dL ()?? 01/20/2024 12:00 Micro-Albumin <12.0 mg/L ()?? 01/20/2024 12:00 Est Creatinine Clearance 105.97 mL/min ()?? 01/20/2024 13:39 ? Abnormal Labs ?? BLOOD COUNT & DIFF Abs. Imm Gran?0.0 k/mm3 ()?01/20/2024 07:52 Abs. [place]?0.3 k/mm3 (Low)?01/20/2024 07:52 Abs. NRBC?0.0 k/mm3 ()?01/20/2024 07:52 Imm Gran?1.0 % ()?01/20/2024 07:52 MCHC?31.8 Gm/dL (Low)?01/20/2024 07:52 MCV?96.3 femtoliters (High)?01/20/2024 07:52 Neut %?42.6 % (Low)?01/20/2024:52 Nucleated RBC (Automated)?0.0 #/100 WBC'S ()?01/20/2024:52 Platelet Count?143 k/mm3 (Low)?01/20/2024:52 RBC?4.64 m/mm3 (Low)?01/20/2024:52 RDW-SD?47.8 femtoliters (High)?01/20/2024:52 ?? CHEM GENERAL AG Ratio?1.5 ()?01/20/2024:52 Anion Gap?26 (High)?01/20/2024:52 Bicarbonate Level?14 mmol/L (Low)?01/20/2024:52 Estimated GFR Creatinine?104 ML/MIN/1.73 M2 ()?01/20/2024:52 Glucose Level?115 mg/dL (High)?01/20/2024 07:52 Glucose, POC?119 mg/dL (High)?01/20/2024 07:33 ?? ENDOCRINE/TUMOR MARKER TSH?5.31 uIU/mL (High)?01/20/2024 07:52 ?? TOXICOLOGY/TDM Amphetamine Screen, Urine?NONE DETECTED ()?01/20/2024 12:00 Barbiturate Screen, Urine?NONE DETECTED ()?01/20/2024 12:00 Benzodiazepine Screen, Urine?POSITIVE (Abnormal)?01/20/2024 12:00 Cannabinoid Screen, Urine?NONE DETECTED ()?01/20/2024 12:00 Cocaine Metabolite Screen, Urine?NONE DETECTED () ?01/20/2024 12:00 Ethanol, Serum or Plasma?NONE DETECTED mg/dL ()?01/20/2024 07:52 Levetiracetam Level?20.20 mg/L ()?01/20/2024 07:52 Opiate Screen, Urine?NONE DETECTED ()?01/20/2024 12:00 ?? UA/URINALYSIS Albumin, Urine?NEGATIVE ()?01/20/2024 12:00 Appear/Color, Urine?COLORLESS ()?01/20/2024 12:00 Bilirubin, Urine?NEGATIVE ()?01/20/2024 12:00 Clarity?CLEAR ()?01/20/2024 12:00 Culture Indication?CULTURE NOT INDICATED ()?01/20/2024 12:00 Glucose, Urine?NEGATIVE ()?01/20/2024 12:00 Hemoglobin, Urine?NEGATIVE ()?01/20/2024 12:00 Ketones, Urine?NEGATIVE ()?01/20/2024 12:00 Leukocyte, Urine?NEGATIVE ()?01/20/2024 12:00 Mucus?SLIGHT /LPF ()?01/20/2024 12:00 Nitrite, Urine?NEGATIVE ()?01/20/2024 12:00 Urobilinogen?NORMAL mg/dL ()?01/20/2024 12:00 ?? URINE OTHER Micro-Albumin?<12.0 mg/L ()?01/20/2024 12:00 Urine Creat For Micro Alb?47.8 mg/dL ()?01/20/2024 12:00 ?? Note: Critical results are displayed in red. ? * Misael Cruz MD: PERFORM Event Display: Consultation Note Authored Date: Attending PA/COMPOSING ROOM SUPERVISOR Attestation:??I have reviewed the patient's medical history, findings on examination, diagnosis and treatment plan as documented in the PA/COMPOSING ROOM SUPERVISOR note. Case and its management discussed with PA/COMPOSING ROOM SUPERVISOR. ?? Possible medically refractory JENNI vs other seizure type, unclear why worsening now.?? Plan as above. Note * Darby Cerda RN: PERFORM Event Display: Discharge/Transfer Note Hospital Authored Date: [id number] Nursing Discharge Note Entered On: 01/25/2024 15:11 EST Performed On: 01/25/2024 15:10 EST by Darby Cerda RN Nursing Discharge Note 2 Discharge Time : 01/25/2024 15:10 EST Discharge Level of Care at Discharge : Homehealth/VNA Discharge VNA/Hospice/Home Care(v001) : Manuel Kohler [phone] Patient Left Unit Via : Ambulatory Patient Accompanied Off Unit with : Responsible adult DC Instructions Provided & Signed by Pt : Yes Patient Understands D/C Instructions : Yes Patient Instructions Discharge Signed : Yes Did Pt have Specialty Bed or Wound Vac : No Darby Cerda RN - 01/25/2024 15:11 EST * Jessica Kaplan MD: PERFORM Event Display: Discharge/Transfer Note Hospital Authored Date: [id number] Patient: ??RAND WILKERSON ? Age:??43 Years?Sex:??Male?:??1980?? Patient Information Discharge Location: A Primary Care Physician: Matthieu Buenrostro MD Admit Date/Time: 01/20/2024 11:36 Discharge Disposition Discharge Disposition: Home with Home Health Discharge Diagnosis Breakthrough seizure (G40.919) Juvenile myoclonic epilepsy (G40.B09) Fall (W19.XXXA) Headache (R51.9) Bipolar disorder (F31.9) Alcohol use disorder (F10.90) Polysubstance use disorder (F19.90) COPD without exacerbation (J44.9) Tobacco user (Z72.0) Seizure ([id number]) COPD (chronic obstructive pulmonary disease) (J44.9) Normal anion gap metabolic acidosis (E87.20) _ Discharge Medications Albuterol/Ipratropium (Combivent Respimat 20 [...] mg oral tablet)?50?Milligram?1?tablet?By Mouth?Daily at bedtime ? Medications Started None Medications Discontinued Keppra Doses Changed Clobazam (clobazam 10 mg oral tablet)?10?Milligram?By Mouth?Daily in AM Clobazam (clobazam 10 mg oral tablet)?15?Milligram?By Mouth?Daily at bedtime Allergies Allergies ?(Active and Proposed Allergies Only) cyclobenzaprine? (Severity: Unknown severity, Onset: Unknown) erythromycin? (Severity: Unknown severity, Onset: Unknown) ?Reactions: rash ? PCP Follow-Up/Heads-Up -Patient needs BMP to check for potassium on 01/27. -Admitted for recurrent breakthrough seizures. AED regimen changed. Future Appointments Wednesday 3:00 PM EST ?? With: Tanvir NUÑEZ, Camila Chavez Where: [facility] [address] [facility] 3rd [facility], [address] [place] [id number]- Status: Pending Wednesday 8:30 AM EST ?? 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 Currently Keppra levels 20.20, no other notable illnesses/trauma/illicit drug use. Clinical picture consistent with medically refractory JENNI. His AED were altered to stop Keppra, start Topamax and continue Lamotrigine while decreasing Clobazam. He was also started on Prednisone whilst discontinuing NSAIDs/Tylenol for headache deemed likely analgesic rebound headache, he completed 6 day course of prednisone on 01/24.?? On 01/22 had another episode of seizure??thus AED up-titrated.??Since then patient had no further episodes of seiziures.??He is being discharged home with VNA services. ?? Breakthrough seizure (G40.919) ? 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 ??-Admission 01/14-01/16 for multiple seizures and falls, though Keppra level was 73.7, per Neurology suspicion was Keppra level should have been higher if patient was therapeutic on outpatient Keppraas he also received a Keppra load prior to the level of 73.7, now returns due to multiple witnessedseizures at home. He denies any recent illness, any trauma, any ETOH, and/or illicit drug use. -Received Keppra load, Ativan in the ED and received midazolam by EMS en route to the hospital. -Keppra level obtained prior to Keppra load was 20, lactate 17 downtrended to normal, CK wnl, ETOH level negative -On 01/22??AM had seizure??episode, reached out to Neurology for further uptitration of AED, lactate and CK??wnl Plan: -Continue Topamax 200 followed by 100 mg twice daily, Clobazam to 10 mg in AM and 15mg qhs,?? lamotrigine 300 mg twice daily -Neurology appt: Epilepsy clinic for 01/30 at 3:00pm. To obtain AED levels at the time. -No driving until 6 months event free per [facility] state law ?? Resolved Headache (R51.9):Etiology unclear concern for rebound headaches, possible analgesic rebound headaches in the setting of daily Tylenol and Ibuprofen. CTH negative as above. No neck stiffness or fever or photophobia, low suspicion for meningitis. Completed 6 day course of prdnisone. 01/24?? Normal anion gap metabolic acidosis ??(E87.20): improving. Bicarb 14->19->17, normal AG. No diarrhea noted, no IVF. Not hyper or hypokalemia to indicate etiology of RTA.??If were to decline again, obtain urine lytes.?Anemia (D64.9), Thrombocytopenia (D69.6):??Resolved: Seems to have a hemoglobin level of around 13.5. Also has a platelet count of 144. He is definitely not having any bleeding and no evidence of infections. Looks like his hemoglobin has fluctuated in the past around 12. Plt count has also been 120-140 in the past year. Iron panel normal. Currently Plt count 150, resolved??and Hgb 14.7, resolved.??Continue to monitor outpatient. ? Chronic medical conditions: Bipolar disorder (F31.9):??C/w Trazodone 50 mg daily, sertraline 100 mg daily, Zyprexa 5 mg daily at bedtime Polysubstance abuse (F19.10), Alcohol use disorder (F10.90):??Alcohol/Nicotine use in past. Consider AUD treatment as outpatient especially with correlation to seizure activity. COPD without exacerbation (J44.9):??Duo-Nebs prn currently. Resume home Combivent inhaler, no PFTs on file, consider testing for this as outpatient. ?? Quality Metrics: VTE Prophylaxis:??Lovenox Diet: Regular Code: Full ?? Objective Measurements?? Height: 178 cm (01/23/24) Weight: 116.7 kg (01/20/24) Dry Weight: 116.7 kg (01/20/24) Body Mass Index:??36.83 kg/m2??Critical (01/20/24) ? Vital Signs?? Temperature:??96.4 DegF??Low (01/25/24 07:00:00) Temperature Route: Temporal (01/25/24 07:00:00) Pulse Rate: 56 bpm (01/25/24 07:00:00) Respiratory Rate: 18 br/min (01/25/24 07:00:00) Systolic Blood Pressure: 122 mm Hg (01/25/24 07:00:00) Diastolic Blood Pressure:??49 mm Hg??Low (01/25/24 07:00:00) Blood pressure sites: Arm, right (01/25/24 07:00:00) Mean Arterial Pressure: 88 mm Hg (01/25/24 04:06:00) Pulse Pressure: 73 mm Hg (01/25/24 07:00:00) Oxygen Saturation: 98 % (01/25/24 07:00:00) Mode of Delivery (Oxygen): Room air (01/25/24 07:00:00) Early Warning Score: 2 (01/25/24 08:12:12) ? . Physical Exam General: Resting in bed, comfortable appearing, NAD HEENT: Normocephalic, atraumatic. Mucous membranes moist.?? Cardiac: Regular rate and rhythm. Normal S1 and S2 heard.?? Respiratory: Lung sounds clear to auscultation Abdomen: Soft, non-tender, non-distended Extremities: No swelling or erythema. Full range of motion is noted at all joints. Skin: Skin is warm and dry Neurological: AAOx3. No focal deficits. forgetful Psychiatric: Normal mood and affect. Good judgement and insight.?? Patient Education Titles Web[employer] Ignite Patient Education - Hypokalemia?? [employer] Patient Education - Potassium Content Fruit?? [employer] Patient Education - Recurrent Seizure (Adult)?? [employer] Patient Education - Epilepsy?? [employer] Patient Education - Topiramate?? [employer] Patient Education - Lamotrigine?? [employer] Patient Education - Clobazam?? [employer] Patient Education - First Aid: Seizures?? [employer] Patient Education - Recurrent Seizure (Adult)?? [employer] Patient Education - Safety During a Seizure?? [employer] Patient Education - Alcohol Use Disorder (AUD): Resources for Family and Friends?? [employer] Patient Education - Alcohol Use Disorder: Myths and Facts?? [employer] Patient Education - Understanding Alcohol Use Disorder (AUD)?? Follow-Up Appointments Added Follow Up ?Time Frame ?Comments Name Matthieu AVILA?Within one week Patient Instructions You were seen in the hospital because of recurrent seizures in the setting of your condition calledjuvenile myoclonic epilepsy.?? You were just admitted in the hospital for similar concerns, therefore your recurrent seizures were concerning.?? Neurology evaluated you and adjusted your antiepileptic regimen accordingly.?? Going forward, you should stop Keppra.?? You should start taking Topamax 100 mg twice daily.?? You should decrease your clobazam to 10 mg twice daily.?? He should continue your lamotrigine 300 mg twice daily.?? You also have an epilepsy clinic appointment on January 30 at 3PM which you should attend.?? Your neurology doctor will evaluate you further for the efficacy of these medications to ensure that you do not have any further seizures.?? Per [place] law you should not drive for 6 months.?? He should also not engage in any other activity which may put you at risk such as swimming, biking etc. ?? PLEASE GO TO ANY [facility] BEFORE YOUR APPOINTMENT ON 01/31/24 FOR BLOOD DRAW THANK YOU ?? You presented also with rebound headaches.?? For this you should avoid taking NSAIDs in the interim, you should take prednisone 20 mg going forward for the next few days until resolution of these headaches. ?? Regarding her other chronic medical conditions you should resume your bipolar disorder medicines [trazodone, sertraline, Zyprexa].?? You should follow-up with your primary care doctor regarding your prior alcohol and tobacco use, as there are medications available to help with this.?? You should also continue your home Combivent inhaler.?? For any other acute healthcare concerns, worsening seizures, neurological changes, please visit the ER urgently. Post Discharge Care Diet: ??Regular Diet ?? Discharge ?01/25/24 11:08:00 EST ?Order Comment:?? Home Health Face to Face *Denotes mandatory kramer ?? *I certify that this patient is under my care and that I or an allowed non- physician working with me had a face to face encounter with the patient on this date:??01/25/2024 11:19 ?? 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 *Select the indications for the discipline/s [...] *Homebound due to (select all that apply): [_] Inability to leave home without assistance/supervision [_] Inability to ambulate without assistance [_] Pain [_] Decreased strength and endurance [_] Unsteady gait [_] Severe SOB and fatigue [_] Impaired transfers [_] Inability to negotiate stairs [_] Limited weight bearing [_] Mental status change? *Physician Signature:??Jessica Lezama ?? *By signing this, I certify that I have personally evaluated the patient and agree with the findings and recommendations as documented above. ? Results Discharge Labs BLOOD COUNT & DIFF WBC 5.5 k/mm3 ()?? 01/21/2024 07:46 RBC 4.88 m/mm3 ()?? 01/21/2024 07:46 Hgb 14.7 Gm/dL ()?? 01/21/2024 07:46 Hct 45.0 % ()?? 01/21/2024 07:46 MCV 92.2 femtoliters ()?? 01/21/2024 07:46 MCH 30.1 pg ()?? 01/21/2024 07:46 MCHC 32.7 Gm/dL (Low)?? 01/21/2024 07:46 Platelet Count 150 k/mm3 ()?? 01/21/2024 07:46 RDW-SD 45.5 femtoliters ()?? 01/21/2024 07:46 MPV 11.1 femtoliters ()?? 01/21/2024 07:46 Nucleated RBC (Automated) 0.0 #/100 WBC'S ()?? 01/21/2024 07:46 Abs. NRBC 0.0 k/mm3 ()?? 01/21/2024 07:46 Abs. Neut 1.7 k/mm3 ()?? 01/20/2024 07:52 Abs. Lymph 1.7 k/mm3 ()?? 01/20/2024 07:52 Abs. [place] 0.3 k/mm3 (Low)?? 01/20/2024 07:52 Abs. Eo 0.2 k/mm3 ()?? 01/20/2024 07:52 Abs. Baso 0.0 k/mm3 ()?? 01/20/2024 07:52 Neut % 42.6 % (Low)?? 01/20/2024 07:52 Lymph % 42.0 % ()?? 01/20/2024 07:52 [place] % 8.3 % ()?? 01/20/2024 07:52 Eos % 5.3 % ()?? 01/20/2024 07:52 Baso % 0.8 % ()?? 01/20/2024 07:52 Imm Gran 1.0 % ()?? 01/20/2024 07:52 Abs. Imm Gran 0.0 k/mm3 ()?? 01/20/2024 07:52 ?? CARDIAC CK, Total 164 units/L ()?? 01/23/2024 09:08 ? CHEM GENERAL Sodium 136 mmol/L ()?? 01/24/2024 08:43 Potassium 3.5 mmol/L (Low)?? 01/24/2024 08:43 Chloride 102 mmol/L ()?? 01/24/2024 08:43 Bicarbonate Level 20 mmol/L (Low)?? 01/24/2024 08:43 Anion Gap 14 ()?? 01/24/2024 08:43 Glucose Level 159 mg/dL (High)?? 01/24/2024 08:43 Glucose, POC 100 mg/dL (High)?? 01/20/2024 17:12 BUN 30 mg/dL (High)?? 01/24/2024 08:43 Creatinine-Blood 0.96 mg/dL ()?? 01/24/2024 08:43 Estimated GFR Creatinine 101 ML/MIN/1.73 M2 ()?? 01/24/2024 08:43 Calcium 9.1 mg/dL ()?? 01/24/2024 08:43 Magnesium 1.8 mg/dL ()?? 01/20/2024 07:52 Protein, Total 7.2 Gm/dL ()?? 01/20/2024 07:52 Albumin 4.3 Gm/dL ()?? 01/20/2024 07:52 AG Ratio 1.5 ()?? 01/20/2024 07:52 Alkaline Phosphatase 87 units/L ()?? 01/20/2024 07:52 AST (SGOT) 17 units/L ()?? 01/20/2024 07:52 ALT (SGPT) 9 units/L ()?? 01/20/2024 07:52 Bilirubin, Total 0.2 mg/dL ()?? 01/20/2024 07:52 Lactate 1.7 mmol/L ()?? 01/23/2024 09:08 ?? ENDOCRINE/TUMOR MARKER TSH 5.31 uIU/mL (High)?? 01/20/2024 07:52 Free T4 1.14 ng/dL ()?? 01/20/2024 07:52 ?? HEME OTHER Hold Lavender Top SPECIMEN DISCARDED AFTER 24 HOURS. ()?? 01/24/2024 08:43 ? TOXICOLOGY/TDM Ethanol, Serum or Plasma NONE DETECTED mg/dL ()?? 01/20/2024 07:52 Barbiturate Screen, Urine NONE DETECTED ()?? 01/20/2024 12:00 Cannabinoid Screen, Urine NONE DETECTED ()?? 01/20/2024 12:00 Cocaine Metabolite Screen, Urine NONE DETECTED ()?? 01/20/2024 12:00 Benzodiazepine Screen, Urine POSITIVE (Abnormal)?? 01/20/2024 12:00 Amphetamine Screen, Urine NONE DETECTED ()?? 01/20/2024 12:00 Opiate Screen, Urine NONE DETECTED ()?? 01/20/2024 12:00 Levetiracetam Level 20.20 mg/L ()?? 01/20/2024 07:52 ?? UA/URINALYSIS Appear/Color, Urine COLORLESS ()?? 01/20/2024 12:00 Clarity CLEAR ()?? 01/20/2024 12:00 Specific [place], Urine 1.018 ()?? 01/20/2024 12:00 pH, Urine 7.0 ()?? 01/20/2024 12:00 Albumin, Urine NEGATIVE ()?? 01/20/2024 12:00 Glucose, Urine NEGATIVE ()?? 01/20/2024 12:00 Ketones, Urine NEGATIVE ()?? 01/20/2024 12:00 Bilirubin, Urine NEGATIVE ()?? 01/20/2024 12:00 Hemoglobin, Urine NEGATIVE ()?? 01/20/2024 12:00 Nitrite, Urine NEGATIVE ()?? 01/20/2024 12:00 Leukocyte, Urine NEGATIVE ()?? 01/20/2024 12:00 Urobilinogen NORMAL mg/dL ()?? 01/20/2024 12:00 WBC's, Urine <1 /HPF ()?? 01/20/2024 12:00 RBC's, Urine 1 /HPF ()?? 01/20/2024 12:00 Squamous Epith <1 /HPF ()?? 01/20/2024 12:00 Mucus SLIGHT /LPF ()?? 01/20/2024 12:00 Culture Indication CULTURE NOT INDICATED ()?? 01/20/2024 12:00 ? URINE OTHER Malb/Creat Ratio Unable to calculate mg/Gm ()?? 01/20/2024 12:00 Urine Creat For Micro Alb 47.8 mg/dL ()?? 01/20/2024 12:00 Micro-Albumin <12.0 mg/L ()?? 01/20/2024 12:00 Est Creatinine Clearance 103.76 mL/min ()?? 01/24/2024 09:54 ? Image ?CT Head/Brain W/O Contrast??01/20/2024 08:49 by Tova Hicks ?No acute intracranial pathology. Mild left ethmoid sinus mucosal thickening. Correlate clinically for findings of mild sinusitis. ?CT Cervical Spine W/O Contrast??01/20/2024 23:42 by Stephani Ferrera ?No acute traumatic injury in the cervical spine. ? Plan and care discussed with attending physician Dr Hairston ?? Jessica Lezama PGY-3 Internal Medicine Resident * Jessica Kaplan MD: PERFORM Event Display: Discharge/Transfer Note Hospital Authored Date: Updated brotherDom. All question answered in detail 01/24 * Romian Hairston DO: PERFORM Event Display: Discharge/Transfer Note Hospital Authored Date: Attending Attestation: I have seen and evaluated this patient.?? I have discussed the case and its management with the resident and agree with the findings and plan as documented in the resident???s note. * Darby Cerda RN: PERFORM Event Display: Patient Education/Instruction Authored Date: Inpatient Adult Discharge Instructions. [address] [id number] Name: RAND WILKERSON : 1980?? Visit: 01/20/2024 11:36?? Current Date: 01/25/2024 11:12 ?? Account: [id number]?? Inpatient Adult Discharge Instructions We would like [...] and their families. Surveys are administered by [employer] ?? If further treatment with your primary care physician or another doctor is recommended, it is important for you to keep the appointment. Call your primary care physician or return to the Emergency Department immediately if your condition worsens, fails to improve, or new symptoms develop. If you need to find a doctor, you can call [facility] for a referral at [phone] or toll free at [phone]) or log in to [email or web address].. ?? [facility], in keeping with [facility] guidance, no longer requires face [...] a health care parvin of your choosing. [employer] is a website that allows you to securely view your medical information including your hospital discharge summary, office visit summaries, medications and follow-up visits. You can also request appointments, renew medications, and request access to your medical information using a health care parvin of your choosing, or just ask a question. You can enroll at [email or web address] or register during your next office visit. You have been discharged from [facility], Patient Care Unit: D5A??. If you have any questions regarding these instructions, including results of studies pending, afteryou leave, please call us and we will be happy to assist you 28/09. [facility] Your Care Team Attending Physician Romina Hairston DO?? Consulting Providers Romina Hairston DO?? Discharging Providers Jessica Kaplan MD Reason for Your Visit Seizure w/ HX Epilepsy?? Your Diagnosis Breakthrough seizure Juvenile myoclonic epilepsy Fall Headache Polysubstance use disorder COPD without exacerbation Tobacco user Normal anion gap metabolic acidosis Seizure Tests Performed Below is a partial list of the tests performed during your hospitalization. You may have had other tests and procedures not included in this list. Please discuss all test results with your provider. Alcohol Level Amphetamine Urine Screen Barbiturate Urine Screen Basic Metabolic Panel Benzodiazepine Urine Screen Cannabinoid Urine Screen CBC CBC w/ Differential CK Total Only Cocaine Urine Screen Comprehensive Metabolic Panel FREE T4 GLUCOSE POC HOLD LAVENDER TUBE Lactate Level Lamotrigine Level LEVETIRACETAM Magnesium Level Opiate Screen Urine TSH with T4 Reflex (Adults Only) UA W/Reflex Culture & Renal URINARY MICROALBUMIN CT Cervical Spine W/O Contrast CT Head/Brain W/O Contrast Amphetamine Urine Screen?? Barbiturate Urine Screen?? Basic Metabolic Panel?? Benzodiazepine Urine Screen?? CBC?? CBC w/ Differential?? CPK Total Only (CK Total Only)?? CT Cervical Spine W/O Contrast?? CT Head/Brain W/O Contrast?? Cannabinoid Urine Screen?? Clobazam Level?? Cocaine Urine Screen?? Comprehensive Metabolic Panel?? Ethanol Level (Alcohol Level)?? Free T4?? Glucose POC?? Hold Lavender Top Tube (HOLD LAVENDER TUBE)?? Lactic Acid Level (Lactate Level)?? Lamotrigine Level?? Levetiracetam Level (LEVETIRACETAM)?? Magnesium Level?? Microalbumin Urine (URINARY MICROALBUMIN)?? Opiate Screen Urine?? TSH with T4 Reflex (Adults Only)?? UA W/Reflex Culture & Renal?? Primary Care Provider Name Matthieu AVILA? Advance Directive Health Care Proxy on File Yes - Health Care Proxy Yes - MOLST Discharge Vitals Temperature: 97.9 DegF Height: 178 cm Pulse Rate: 69 bpm Weight: 116.7 kg Respiratory Rate: 18 br/min Body Mass Index:??36.83 kg/m2??Critical Systolic Blood Pressure: 110 mm Hg Body surface area: 2.4 Diastolic Blood Pressure: 63 mm Hg ?? Oxygen Saturation: 100 % ?? Studies Pending All studies ordered during this hospital stay have been completed unless listed below. Please discuss all pending results with your provider listed above in these instructions. ?? Clobazam Level?? What to do next Instructions From Your Doctor You were seen in the hospital because of recurrent seizures in the setting of your condition calledjuvenile myoclonic epilepsy.?? You were just admitted in the hospital for similar concerns, therefore your recurrent seizures were concerning.?? Neurology evaluated you and adjusted your antiepileptic regimen accordingly.?? Going forward, you should stop Keppra.?? You should start taking Topamax 100 mg twice daily.?? You should decrease your clobazam to 10 mg twice daily.?? He should continue your lamotrigine 300 mg twice daily.?? You also have an epilepsy clinic appointment on January 30 at 3PM which you should attend.?? Your neurology doctor will evaluate you further for the efficacy of these medications to ensure that you do not have any further seizures.?? Per [place] law you should not drive for 6 months.?? He should also not engage in any other activity which may put you at risk such as swimming, biking etc. ?? PLEASE GO TO ANY [facility] BEFORE YOUR APPOINTMENT ON 01/31/24 FOR BLOOD DRAW THANK YOU ?? You presented also with rebound headaches.?? For this you should avoid taking NSAIDs in the interim, you should take prednisone 20 mg going forward for the next few days until resolution of these headaches. ?? Regarding her other chronic medical conditions you should resume your bipolar disorder medicines [trazodone, sertraline, Zyprexa].?? You should follow-up with your primary care doctor regarding your prior alcohol and tobacco use, as there are medications available to help with this.?? You should also continue your home Combivent inhaler.?? For any other acute healthcare concerns, worsening seizures, neurological changes, please visit the ER urgently. ?? Orders??:Regular Diet? 01/25/24 11:08:00 EST?? Scheduled Follow-Up Appointments Wednesday 3:00 PM EST ?? With: Tanvir NUÑEZ, Camila Chavez Where: [facility] [address] [facility] 3rd Floor, [address] [place] [id number]- Status: Pending Wednesday 8:30 AM EST ?? With: Ursula Daugherty Where: [facility] [address] [place] [address]- Status: Pending You Need to Schedule the Following Appointments Follow Up with??Name Matthieu AVILA When:??Within Within one week Where: [address] [place] [address]- Discharge Medications RAND WILKERSON :1980 Visit Date:01/20/2024 Medications: Please continue your medications until treatment is completed or stopped by your provider. Medications not listed below should be discontinued. Discuss any questions related to medications with your provider. What How Much When Instructions Next Dose New Topiramate (topiramate 100 mg oral tablet) 100 Milligram Oral Twice a day Pickup at [place] [address] 01/25/24?? 9 pm Changed Clobazam (clobazam 10 mg oral tablet) 15 Milligram Oral Daily at Bedtime Pickup at [place] [address] 01/25/24?? bedtime Changed Clobazam (clobazam 10 mg oral tablet) 10 Milligram Oral Daily in the morning Pickup at [place] [address] 01/26/24 Unchanged Albuterol/ Ipratropium (Combivent Respimat 20 mcg-100 mcg/ inh inhalation aerosol) 1 puff(s) Inhalation 4 times a day as needed for Wheezing/Shortness of Breath as needed for wheezing per instruction Unchanged HydrOXYzine (hydrOXYzine hydrochloride 25 mg oral tablet) 1 tab(s) Oral 4 times a day as needed for for anxiety as needed for anxiety per instruction Unchanged Lamotrigine (lamotrigine 100 mg oral tablet) 300 Milligram Oral Twice a day Duration: 30 Days 01/25/24?? 9 pm Unchanged levETIRAcetam (Keppra 1000 mg oral tablet) 1,500 Milligram Oral Twice a day Duration: 30 Days 01/25/24 Unchanged Melatonin (Melatonin 3 mg oral tablet) TAKE 2 TABLETS BY MOUTH AT BEDTIME IF NEEDED FOR SLEEP ?? as needed for sleep per instruction Unchanged Olanzapine (olanzapine 5 mg oral tablet) 1 tab(s) Oral Daily at Bedtime 01/25/24?? bedtime Unchanged Sertraline (sertraline 50 mg oral tablet) 100 Milligram Oral Daily 01/26/24 Unchanged Thiamine (Vitamin B1 100 mg oral tablet) 1 tab(s) Oral Daily 01/26/24 Unchanged Trazodone (traZODone 50 mg oral tablet) 1 tab(s) Oral Daily at Bedtime 01/25/24 bedtime Pharmacy Information [facility] [address]: [address] [place] [address] [phone] ?? What How Much When Comments Stop Taking Ibuprofen (Motrin Tablet) 600 Milligram Oral 3 times a day with meals Prescription Given During Visit Clobazam (clobazam 10 mg oral tablet) - 15 mg, By Mouth, Daily at bedtime, # 50 tablet, 0 Refills, [facility] [address], [address] [place] [phone]?? Clobazam (clobazam 10 mg oral tablet) - 10 mg, By Mouth, Daily in AM, # 30 tablet, 0 Refills, [facility] [address], [address] [place] [phone] [phone]?? Topiramate (topiramate 100 mg oral tablet) - 100 mg, By Mouth, 2 times a day, # 60 tablet, 0 Refills, [facility] [address], [address] [place] [phone]?? Laboratory Results Below is a partial list of the most recent Laboratory test results done prior to this discharge. You may have had other tests and procedures not included in this list. Please discuss all test resultswith your provider. Est Creatinine Clearance - 103.76 mL/min (01/24/2024) Alcohol Level (01/20/2024) ???Ethanol, Serum or Plasma - NONE DETECTED Amphetamine Urine Screen (01/20/2024) ???Amphetamine Screen, Urine - NONE DETECTED Barbiturate Urine Screen (01/20/2024) ???Barbiturate Screen, Urine - NONE DETECTED Basic Metabolic Panel (01/24/2024) ???Sodium - 136 mmol/L???Potassium - 3.5 mmol/L???Chloride - 102 mmol/L???Bicarbonate Level - 20 mmol/L???Anion Gap - 14???Glucose Level - 159 mg/dL???BUN - 30 mg/dL???Creatinine-Blood - 0.96 mg/dL???Estimated GFR Creatinine - 101 ML/MIN/1.73 M2???Calcium - 9.1 mg/dL Benzodiazepine Urine Screen (01/20/2024) ???Benzodiazepine Screen, Urine - POSITIVE Cannabinoid Urine Screen (01/20/2024) ???Cannabinoid Screen, Urine - NONE DETECTED CBC (01/21/2024) ???WBC - 5.5 k/mm3???RBC - 4.88 m/mm3???Hgb - 14.7 Gm/dL???Hct - 45.0 %???MCV - 92.2 femtoliters???MCH - 30.1 pg???MCHC - 32.7 Gm/dL???Platelet Count - 150 k/mm3???RDW-SD - 45.5 femtoliters???MPV - 11.1 femtoliters???Nucleated RBC (Automated) - 0.0 #/100 WBC'S???Abs. NRBC - 0.0 k/mm3 CBC w/ Differential (01/20/2024) ???WBC - 4.0 k/mm3???RBC - 4.64 m/mm3???Hgb - 14.2 Gm/dL???Hct - 44.7 %???MCV - 96.3 femtoliters???MCH - 30.6 pg???MCHC - 31.8 Gm/dL???Platelet Count - 143 k/mm3???RDW-SD - 47.8 femtoliters???MPV - 11.8 femtoliters???Nucleated RBC (Automated) - 0.0 #/100 WBC'S???Abs. NRBC - 0.0 k/mm3???Abs. Neut - 1.7 k/mm3???Abs. Lymph - 1.7 k/mm3???Abs. [place] - 0.3 k/mm3???Abs. Eo - 0.2 k/mm3???Abs. Baso - 0.0 k/mm3???Neut % - 42.6 %???Lymph % - 42.0 %???[place] % - 8.3 %???Eos % - 5.3 %???Baso % - 0.8 %???Imm Gran - 1.0 %???Abs. Imm Gran - 0.0 k/mm3 CK Total Only (01/23/2024) ???CK, Total - 164 units/L Cocaine Urine Screen (01/20/2024) ???Cocaine Metabolite Screen, Urine - NONE DETECTED Comprehensive Metabolic Panel (01/20/2024) ???Sodium - 140 mmol/L???Potassium - 4.2 mmol/L???Chloride - 100 mmol/L???Bicarbonate Level - 14 mmol/L???Anion Gap - 26???Glucose Level - 115 mg/dL???BUN - 20 mg/dL???Creatinine-Blood - 0.94 mg/dL???Estimated GFR Creatinine - 104 ML/MIN/1.73 M2???Calcium - 9.0 mg/dL???Protein, Total - 7.2 Gm/dL???Albumin - 4.3 Gm/dL???AG Ratio - 1.5???Alkaline Phosphatase - 87 units/L???AST (SGOT) - 17 units/L???ALT (SGPT) - 9 units/L???Bilirubin, Total - 0.2 mg/dL FREE T4 (01/20/2024) ???Free T4 - 1.14 ng/dL GLUCOSE POC (01/20/2024) ???Glucose, POC - 100 mg/dL HOLD LAVENDER TUBE (01/24/2024) ???Hold Lavender Top - SPECIMEN DISCARDED AFTER 24 HOURS. Lactate Level (01/23/2024) ???Lactate - 1.7 mmol/L Lamotrigine Level (01/20/2024) ???Lamotrigine Level - 3.8 LEVETIRACETAM (01/20/2024) ???Levetiracetam Level - 20.20 mg/L Magnesium Level (01/20/2024) ???Magnesium - 1.8 mg/dL Opiate Screen Urine (01/20/2024) ???Opiate Screen, Urine - NONE DETECTED TSH with T4 Reflex (Adults Only) (01/20/2024) ???TSH - 5.31 uIU/mL UA W/Reflex Culture & Renal (01/20/2024) ???Appear/Color, Urine - COLORLESS???Clarity - CLEAR???Specific [place], Urine - 1.018???pH, Urine - 7.0???Albumin, Urine - NEGATIVE???Glucose, Urine - NEGATIVE???Ketones, Urine - NEGATIVE???Bilirubin, Urine - NEGATIVE???Hemoglobin, Urine - NEGATIVE???Nitrite, Urine - NEGATIVE???Leukocyte, Urine - NEGATIVE? ?Urobilinogen - NORMAL? ?WBC's, Urine - <1 /HPF? ?RBC's, Urine - 1 /HPF? ?Squamous Epith - <1 /HPF? ?Mucus - SLIGHT? ?Culture Indication - CULTURE NOT INDICATED URINARY MICROALBUMIN (01/20/2024) ???Malb/Creat Ratio - Unable to calculate???Urine Creat For Micro Alb - 47.8 mg/dL???Micro-Albumin - <12.0 mg/L You will be contacted within 72 hours with your results. Allergies (NKA means No Known Allergies) cyclobenzaprine erythromycin??(rash) Problems Active Problems??(8) Alcohol use disorder?? Bipolar disorder?? COPD without exacerbation?? COVID-19?? 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 Polysubstance abuse?? Tobacco user?? Education Materials Below is the list of Educational Leaflet Providered with your Discharge Instructions. Web[employer] Patient Education - Hypokalemia?? Web[employer]ite Patient Education - Potassium Content Fruit?? Web[employer]ite Patient Education - Recurrent Seizure (Adult)?? WebMD [employer] Patient Education - Epilepsy?? Web[employer] Patient Education - Topiramate?? Web[employer] Patient Education - Lamotrigine?? Web[employer]ite Patient Education - Clobazam?? Web[employer]ite Patient Education - First Aid: Seizures?? WebMD Ignite Patient Education - Recurrent Seizure (Adult)?? WebMD [employer]ite Patient Education - Safety During a Seizure?? Web[employer] Patient Education - Alcohol Use Disorder (AUD): Resources for Family and Friends?? Web[employer] Patient Education - Alcohol Use Disorder: Myths and Facts?? WebMD Ignite Patient Education - Understanding Alcohol Use Disorder (AUD)?? Valuables and Belongings I fully understand and agree that [facility] accepts no responsibility for all [...] patient Date for Pt to Sign Valuables/Belongings: 01/20/24 17:16:00 ?? Other Discharge Information ? Case Management Discharge Plan?? Discharge Plan?? Discharge Agency Information?? Discharge Level of Care at Discharge: Homehealth/VNA Name of Agency #1: [facility] Discharge Rx Program: Discharge Prescription Program Service Categories #1: Retirement Discharge Transportation Arranged: Brother Dom Service Comments #1: [facility] will resume services and will now see you 7 days a week. Discharge VNA/Hospice/Home Care: [facility] [phone] Name of Person Notified of Transfer: Patient and brother Dom ?? Pulmonary Rehab Status?? Pulmonary Rehab Discharge [...] are strongly encouraged to quit. Please call [facility] at [phone] or [phone]-[place] [employer] [place] ([phone]) or log in to [email or web address] for referrals to smoking cessation programs. ?? 546 Suicide & Crisis Lifeline is available 28/09 if you or someone you know needs to find a reason to keep living. By calling 600 you'll be connected to a skilled, trained counselor at a crisis center in your area. INPATIENT DISCHARGE INSTRUCTIONS SIGNATURE PAGE SHILOHRAND COKER Location:[facility] Registration Date and Time:01/20/2024 11:36 EST Primary Care Physician: Matthieu Buenrostro MD, Attending Physician: Romina Hairston DO, I RAND WILKERSON, have received the above patient education materials/instructions and have verbalized understanding. If ambulance or transport services are being used I further acknowledge being given a choice of service. ?? If you need to contact me, please call me at this number: . Patient/Land Economist Name: Patient/Land Economist Signature: Relationship to Patient: Witness Name/Signature: Date: * Darby Cerda RN: PERFORM Event Display: Patient Education Leaflets Authored Date: [id number] Topiramate ?? [id number] Topiramate Brand Name(s): Eprontia ??, Qudexy XR??, Topamax??, Trokendi XR??; also available generically ?? WHY is this medicine prescribed? Topiramate is used alone or with other medications to treat certain types of seizures including primary generalized tonic-clonic seizures (formerly known as a grand mal seizure; seizure that involvesthe entire body) and partial onset seizures (seizures that involve only one part of the brain). Topiramate is also used with other medications to control seizures in people who have [place] syndrome (a disorder that causes seizures and developmental delays). Topiramate is also used to prevent migraine headaches but not to relieve the pain of migraine headaches when they occur in adults andchildren 12 years of age and older. Topiramate is in a class of medications called anticonvulsants.It works by decreasing abnormal excitement in the brain. HOW should this medicine be used? Topiramate comes as a tablet, a sprinkle capsule (capsule that contains small beads of medication that can be sprinkled on food), an extended-release (long- acting) capsule and solution (liquid) to take by mouth. The tablets, sprinkle capsules, and solution are usually taken with or without food once or twice a day. The extended-release capsules are usually taken with or without food once a day. Take topiramate at around the same time(s) every day. Follow the directions on your prescription label carefully, and ask your doctor or pharmacist to explain any part you do not understand. Take topiramate exactly as directed. Do not take more or less of it or take it more often than prescribed by your doctor. Be sure that the prescription your doctor gives you is clear and easy to read. Talk to your pharmacist to be sure that you are given topiramate. If you think you were given the wrong medication, talkto your pharmacist. Do not take any medication unless you are certain it is the medication that your doctor prescribed. Topiramate tablets have a bitter taste so you should swallow them whole. It is especially importantthat you not take topiramate tablets that have been broken for any length of time because tablets that are broken may lose their effectiveness over time. Swallow extended-release capsules (Trokendi XR brand only) whole; do not split, chew, or sprinkle on food. The sprinkle and extended-release capsules (Qudexy XR brand only) may be swallowed whole or opened and poured over soft food. To take the sprinkle capsules or extended-release capsules (Qudexy XR brand only) mixed with food, you can carefully open the capsule and sprinkle the entire contents onto a spoonful of soft foods, such as applesauce. Swallow the mixture right after you mix it without chewing, and then drink fluids to make sure that you swallow all of the medication. Use a marked (calibrated) measuring device to measure the topiramate solution dose to make sure thecorrect dose is being given. Do not use a household teaspoon or tablespoon. Ask your pharmacist aga measuring device if one is not included with your medication. Your doctor will probably start you on a low dose of topiramate and gradually increase your dose, not more than once every week. Topiramate may control your seizures or migraines but will not cure your condition. Continue to take topiramate even if you feel well. Do not stop taking topiramate without talking to your doctor, even if you experience side effects such as unusual changes in behavior or mood. If you suddenly stop taking topiramate, you may have severe seizures, even if you have not had seizures in the past. Yourdoctor will probably decrease your dose gradually. Your doctor or pharmacist will give you the loan auditor's patient information sheet (Medication Guide) when you begin treatment with topiramate and each time you refill your prescription. Read the information carefully and ask your doctor or pharmacist if you have any questions. You can also visitthe Food and Drug Administration (FDA) website (https://www.fda.gov/Drugs) or the loan auditor's website to obtain the Medication Guide. Are there OTHER USES for this medicine? Topiramate is also sometimes used for the management of alcohol dependence and for the treatment ofbinge eating disorder and essential tremors (a movement disorder that causes involuntary shaking, especially in the hands). Talk to your doctor about the risks of using this medication for your condition. This medication may be prescribed for other uses. Ask your doctor or pharmacist for more information. What SPECIAL PRECAUTIONS should I follow? Before taking topiramate, ??? tell your doctor and pharmacist if you are allergic to topiramate, any other medications, or any of the ingredients in topiramate tablets, sprinkle capsules, extended-release capsules, and solution. Ask your pharmacist for a list of the ingredients. ??? tell your doctor and pharmacist what prescription and nonprescription medications, vitamins, nutritional supplements, and herbal products youare taking or plan to take. Your doctor may need to change the doses of your medications or monitoryou carefully for side effects. ??? The following nonprescription or herbal products may interact with topiramate: aspirin and other nonsteroidal anti-inflammatory medications (NSAIDs) such as ibuprofen (Advil, Motrin) and naproxen (Aleve, Naprosyn). Be sure to let your doctor and pharmacist know that you are taking these medications before you start taking topiramate. Do not start any of these medications while taking topiramate without talking to your healthcare provider. ??? tell your doctorif you or any family members have or have ever had kidney stones, and if you have ever thought about killing yourself or tried to do so. Also tell your doctor if you have or have ever had metabolic acidosis (a disturbance in the body's acid-base balance that results in excessive acidity of the blood); osteopenia, osteomalacia, or osteoporosis (conditions in which the bones are soft or brittle andmay break easily); glaucoma (a type of eye disease); any disease that affects your breathing such as asthma or chronic obstructive pulmonary disease (COPD); depression or abnormal moods; a growth problem; or liver or kidney disease. Also tell your doctor if you have diarrhea or if you develop diarrhea during your treatment. ??? tell your doctor if you are , plan to become , or arebreast-feeding. If you are or plan to become , your doctor may prescribe a different medication instead of topiramate because topiramate may harm the fetus. If you do not plan to become , you should use control to prevent during your treatment with topiramate. Talk to your doctor about what type of control you should use, because taking topiramate may decrease the effectiveness of hormonal contraceptives such as control pills, implants, patches, rings, or injections. If you become while you are taking topiramate, call your doctor right away, but do not stop taking topiramate before talking to your doctor. ??? if you are having surgery, including dental surgery, tell the doctor or dentist that you are taking topiramate. ??? you should know that topiramate may make you drowsy, dizzy, confused, or unable to concentrate. Do not drive a car or operate machinery until you know how this medication affects you. ??? if you are taking topiramate to control seizures, you should know that you may continue to have seizures during yourtreatment. You may need to avoid activities such as swimming, driving, and climbing so that you will not harm yourself or others if you lose consciousness during a seizure. ??? tell your doctor if you if you drink alcohol. You should not drink alcohol within 6 hours before and 6 hours after you take extended-release capsules (Trokendi XR brand only). Your doctor may tell you not to drink alcohol while taking topiramate. ??? you should know that topiramate can prevent you from sweating and make it harder for your body to cool down when it gets very hot. This happens most often in warm weather and to children who take topiramate. Avoid exposure to heat, drink plenty of fluids and tell your doctor if you have a fever, headache, muscle cramps, or an upset stomach, or if you are not sweating as usual. ??? you should know that you may be more likely to develop a kidney stone while you are taking topiramate. Drink plenty of water or other fluids every day to prevent kidney stones from forming. ??? you should know that your mental health may change in unexpected ways and you may become suicidal (thinking about harming or killing yourself or planning or trying to do so) while you are taking topiramate for the treatment of epilepsy, mental illness, or other conditions. A small number of adults and children 5 years of age and older (about 1 in 500 people) who took anticonvulsants such astopiramate to treat various conditions during clinical studies became suicidal during their treatment. Some of these people developed suicidal thoughts and behavior as early as 1 week after they started taking the medication. There is a risk that you may experience changes in your mental health if you take an anticonvulsant medication such as topiramate, but there may also be a risk that you willexperience changes in your mental health if your condition is not treated. You and your doctor willdecide whether the risks of taking an anticonvulsant medication are greater than the risks of not taking the medication. You, your family, or your caregiver should call your doctor right away if you experience any of the following symptoms: panic attacks; agitation or restlessness; new or worseningirritability, anxiety, or depression; acting on dangerous impulses; difficulty falling or staying asleep; aggressive, angry, or violent behavior; paula (frenzied, abnormally excited mood); talking orthinking about wanting to hurt yourself or end your life; withdrawing from friends and family; preoccupation with and dying; giving away prized possessions; or any other unusual changes in behavior or mood. Be sure that your family or caregiver knows which symptoms may be serious so they can call the doctor if you are unable to seek treatment on your own. What SPECIAL DIETARY instructions should I follow? Talk to your doctor before changing your diet or beginning any type of weight loss program. Do not follow a ketogenic diet (a high-fat, low-carbohydrate diet used to control seizures) or any other high-fat, low-carbohydrate diet while you are taking this medication. What should I do IF I FORGET to take a dose? If you are taking topiramate tablets, sprinkle capsules, or solution, take the missed dose as soon as you remember it. However, if it is less than 6 hours before you are scheduled to take your next dose, skip the missed dose and continue your regular dosing schedule. Do not take a double dose to make up for a missed one. If you are taking topiramate extended-release capsules, take the missed dose as soon as you remember it. However, if it is almost time for your next dose, skip the missed dose and continue your regular dosing schedule. Do not take a double dose to make up for a missed one. If you have missed more than one dose, contact your doctor. What SIDE EFFECTS can this medicine cause? Topiramate may cause other side effects. Tell your doctor if any of these symptoms are severe or donot go away: ??? numbness, burning, or tingling in the hands or feet ??? slowed reactions ??? nervousness ??? headache ??? drowsiness ??? weakness ??? uncontrollable shaking of a part of the body ??? uncontrollable eye movements ??? weight loss ??? constipation ??? nausea ??? stomach pain ??? change in ability to taste food ??? dry mouth ??? nosebleed ??? back, muscle, leg, or bone pain ??? missed menstrual periods ??? excessive menstrual bleeding Some side effects can be serious. If you experience any of the following symptoms or those listed in the SPECIAL PRECAUTIONS section, call your doctor immediately: ??? rash, skin blisters, or skin peeling ??? blurred vision ??? loss of vision ??? double vision ??? eye pain ??? eye redness ??? worsening of seizures ??? feeling cold, chills, or low body temperature ??? difficulty concentrating ??? speech problems, especially difficulty thinking of specific words ??? confusion ??? memory problems ??? coma (loss of consciousness for a period of time) ??? loss of coordination ??? pounding or irregular heartbeat ??? chest pain ??? shortness of breath or troublebreathing ??? fast, shallow breathing ??? inability to respond to things around you ??? excessive tiredness ??? diarrhea ??? vomiting ??? loss of appetite ??? intense back or side pain ??? bloody, jose miguel udy, or foul-smelling urine ??? constant need to urinate ??? difficulty urinating or pain when urinating ??? fever or other signs of infection ??? unusual bleeding or bruising Topiramate may cause osteoporosis (a condition in which bones can break more easily) in adults and rickets (abnormal, curved bone growth) in children. Topiramate may also slow the growth of children and may decrease the final height that children reach. Talk to your doctor about the risks of taking topiramate. Topiramate may cause other side effects. Call your [...] closed, and out of reach of children. Tablets, extended-release capsules and solution should be stored at room temperature and away from excess heat and moisture (not in the bathroom). Sprinkle capsules should be stored at or below 77??F (25??C) and not in the bathroom. Never store mixtures of topiramate sprinkles and soft food. These should be used right away or discarded. Dispose of any unused solution 60 days after first opening the bottle. It [...] and out of their sight and reach. [email or web address] Unneeded medications should be disposed of in [...] of overdose may include the following: ??? seizures ??? drowsiness ??? speech problems ??? blurred vision ??? double vision ??? trouble thinking ??? tiredness ??? loss of coordination ??? loss of consciousness ??? dizziness ??? stomach pain ??? agitation ??? depression ??? loss of appetite ??? pounding or irregular heartbeat ??? fast, shallow breathing What OTHER INFORMATION should I know? Keep all appointments with your doctor and the laboratory. Your doctor will order certain lab teststo check your body's response to topiramate. Do not let anyone else take your medication. Ask your pharmacist any questions you have about refilling your prescription. It is important for you to keep a written list of all of the prescription and nonprescription (ixbt-hik-[id number]) medicines you are taking, as well as [...] or pharmacist about specific clinical use. The [employer] represents that the information provided hereunder was formulated with a reasonable standard of care, and in conformity with professional standards in the field. [employer] makes no representations or warranties, express or implied, including, but not limited to, any implied warranty of merchantability and/or fitness for a particular purpose, with respect to such information and specifically disclaims all such warranties. Users are advised that decisions regarding drug therapy are complex medical decisions requiring the independent, informed decision of an appropriate health physician assistant primary care, and the information is provided for informational purposes only. The entire monograph for a drug should be reviewed for a thorough understanding of the drug's actions, uses and side effects. The [employer] does not endorse or recommend the use of any drug.The information is not a substitute for medical care. AHFS?? Patient Medication Information???. ?? Copyright, 2023. [employer]??, [address], [address], [place], [place]. All Rights Reserved. Duplication for commercial use must be authorized by [facility]. Selected Revisions: August 20, 2022. AHFS?? Patient Medication Information???. ?? Copyright, 2023 ?? * Darby Cerda RN: PERFORM Event Display: Patient Education Leaflets Authored Date: [id number] Hypokalemia ?? [id number] Hypokalemia Hypokalemia means a low level of potassium in the blood. This most often occurs in people who take water pills (diuretics). It can also result from severe vomiting or diarrhea.??You may also have it if you??take laxatives for long periods of time. It sometimes happens if you have low magnesium (hypo magnesemia). If you have this,??your??healthcare provider will treat the low??magnesium first. A mild case of hypokalemia often causes no symptoms. It is only found with blood testing. More severe potassium loss causes: ??? Overall weakness ??? Muscle or stomach cramps ??? Rapid or irregular heartbeats (heart palpitations) ??? Low blood pressure ??? Muscle weakness ??? Short-term paralysis in some people Home care ??? Take any potassium supplements as prescribed. ??? Eat foods rich in potassium. High amounts of potassium are found in baked potatoes, baked sweet potatoes, spinach, cantaloupe, cod, halibut, salmon, and scallops. White, red, or mehta beans are also very good sources. So are avocados, orange juice, bananas, and tomato juice. ??? If you take certain types of diuretics, you will also need to take potassium supplements. Talk with your healthcare provider. ?? Follow-up care Follow up with your??healthcare provider??for a repeat blood test within the next week, or as advised by our staff. ?? When to get medical advice Call your healthcare provider right away if you have: ??? Increased weakness,??fatigue, or muscle cramps ??? Dizziness ?? Call 911 Call 911 if you have: ??? Irregular heartbeat, extra beats, or very fast heart rate ??? Loss of consciousness ?? Last Reviewed Date: 2022 ?? 5436-5729 [employer]. All rights reserved. This information is not intended as a substitute for professional medical care. Always follow your healthcare professional's instructions. ?? * Darby Cerda RN: PERFORM Event Display: Patient Education Leaflets Authored Date: [id number] Potassium Content Fruit ?? [address] [facility] Potassium Content of Fruits Serving Size ?? cup, unless otherwise indicted Juices: 6 oz Low Potassium Fruits (150 mg or less) Applesauce Apricots canned or 1 fresh Blueberries Boysenberries Fruit cocktail Passion fruit 1 fresh Persimmon, 1 fresh Pineapple, fresh Plums, canned or 1 fresh [place], 1 fresh Cranberry juice Cran-Apple juice Cran-Apricot juice Cran-Grape juice Cran-Raspberry juice Papaya nectar Clarke nectar Pear nectar ? Medium Potassium Fruits (155-245 mg) Apple 1 medium Blackberries Cherries, canned, 10 fresh Grapefruit, ?? fresh Grapes, 15 small Mandarin oranges Que ?? medium fresh [place], 1 medium Pear, 1 medium Pineapple, canned Prunes, dried 3 Red raspberries Rhubarb Strawberries, 5 fresh Watermelon, 1 cup Apple juice Apple-Raspberry juice Grape juice Pineapple juice Pineapple-[place] juice [place] juice Pear, 1 fresh ? High Potassium Fruits (250-395 mg) Apricots, 3 fresh Dates, 7 Figs, 3 Kiwi, 1 fresh Nectarine, 1 fresh [place], 1 medium Papaya, ?? fresh Pomegranate, 1 fresh Tangelo, 1 fresh [place] juice ? Very High Potassium Fruits (more than 400 mg) Apricots, dried, 10 halves Avocado, ?? medium Banana, ?? fresh Cantaloupe, 1 cup, cubed Honeydew melon, 1 Cup, cubed Peaches, dried, 5 halves Pears, dried, 5 halves Plantain, ?? fresh Prunes, 6 or more Raisins, 2 tablespoons Passion Fruit juice Prune Juice Breadfruit, raw ? Patient Care team information Care Team Personnel Name: Dalia Collazo RN Position: S RN Member Role: Primary Care Nurse Name: Gus Mcgraw RN Position: S RN Member Role: Primary Care Nurse Name: Monika June RN Position: S RN Member Role: Primary Care Nurse Name: Patience Mcpherson RN Position: S RN Member Role: Primary Care Nurse Name: Therese Gross RN Position: [facility] RN Member Role: Primary Care Nurse Name: Misael Gong RN Position: [facility] RN Member Role: Primary Care Nurse Name: Isadora Rice RN Position: [facility] RN Member Role: Primary Care Nurse Name: Joseluis Thorpe RN Position: [facility] RN Member Role: Primary Care Nurse Name: Stas Erwin RN Position: [facility] RN Member Role: Primary Care Nurse Name: Valencia Fisher Position: [facility] RN Magy Member Role: Primary Care Nurse Name: Francesco Baca RN Position: [facility] RN Member Role: Primary Care Nurse Name: Angelika Gu RN Position: [facility] RN Member Role: Primary Care Nurse Name: Melanie Sainz RN Position: [facility] RN Member Role: Primary Care Nurse Name: Monika Singh RN Position: [facility] RN Member Role: Primary Care Nurse Name: Kavita Polo NP Position: [facility] Associate Professional Member Role: Primary Care Nurse Address: [address] [place] [address]- Telecom: Name: Beau Rhoades RN Position: [facility] RN Member Role: Primary Care Nurse Name: Matthieu Buenrostro MD Position: S Outreach Member Role: PCP Address: [address] [place] [address]- Telecom: Name: Evaristo Huggins RN Position: S RN Member Role: Primary Care Nurse Name: Darby Cerda RN Position: [facility] RN Member Role: Primary Care Nurse Name: See Chavez RN Position: S RN Member Role: Primary Care Nurse Name: Kalyan Cazares RN Position: [facility] RN Member Role: Primary Care Nurse Name: Myke Mcfadden RN Position: [facility] RN Member Role: Primary Care Nurse Name: Monika Marquez RN Position: [facility] RN Member Role: Primary Care Nurse Name: Elaine Reis RN Position: [facility] RN Member Role: Primary Care Nurse Name: Clay Quiñonez RN Position: [facility] RN Member Role: Primary Care Nurse Name: Veronika Dinero LPN Position: [facility] RN Member Role: Primary Care Nurse Name: Paul Ruiz RN Position: [facility] RN Member Role: Primary Care Nurse Care Team Related Persons Name: JEANNE GIRON Name: DOM DOOLEY Insurance Providers Guarantor name: [employer] Health Plan Information #: 1 Payer: [employer] Member Number: [id number] Policy Number: NA Group Number: NA Health Plan Information #: 2 Payer: [employer] Member Number: [id number] Policy Number: NA Group Number:
--- OUTSIDE RECORDS SUMMARY | 2024-02-03 15:00 | XMS_ITS | Continuity of Care Document ---
Author Organization [facility] Address [address] [place] [id number]- Care Team Providers Care Physiotherapy Practice Manager Name Role Phone Not on Staff, PCP Primary Care Physician Unavail able Encounter [facility] Date(s): 12/02/23 - 12/04/[address] [id number]- Encounter Diagnosis COVID-19(Final) - 12/02/23 Seizure(Final) - 12/02/23 Altered mental status(Final) - 12/02/23 Discharge Disposition: A-D/C Home Attending Physician: Alin Arellano MD Admitting Physician: Edison Briggs MD Referring Physician: Not on Staff, Referring MD Allergies, Adverse Reactions, Alerts Substance Reaction Severity Status erythromycin rash Active cyclobenzaprine Active Immunizations Given and Recorded Vaccine Date Status Refusal Reason tetanus/diphtheria/pertussis, acel(Tdap) 07/13/20 Recorded tetanus/diphtheria/pertussis, acel(Tdap) 12/23/09 Recorded Medications clobazam 10 mg oral tablet 1.5 tablet = 15 mg, By Mouth, 2 times a day, # 90 tablet, 0 Refills, Maintenance, 12/04/23 10:56:00EDT, Tablet, [facility]pharmacy #[id number], Partial fill upon patient request if the prescription is for a schedule II opioid drug., 180, cm, 12/04/23 7:47:00 EDT... Start Date: 12/04/23 Stop Date: 01/03/24 Status: Ordered Combivent Respimat 20 mcg-100 mcg/inh [...] 03/31/21 12:38:00 EST, Route to Pharmacy Electronically, [facility], Partial fill upon patient [...] Exam Date Time Procedure Performing Provider Status 12/02/23 2:54 PM Chest 2 Views Frontal and Lat Jovi Nur; Dayana (Verified) Notes: (Chest 2 Views Frontal and Lat) Reason For Exam: Other: RESULT: Chest 2 Views Frontal and Lat Chest 2 Views Frontal and Lat COMPARISON: 11/25/2023 INDICATION / CLINICAL QUESTION: Seizure FINDINGS: LINES AND TUBES: None. LUNGS AND PLEURA: Clear lungs. Normal pulmonary vascularity. No pleural effusion. No pneumothorax. HEART, MEDIASTINUM AND VELMA: Normal. BONES AND SOFT TISSUES: Normal. IMPRESSION: Normal. WSN: [id number] Ordering Physician: Gabriel Nicole Dictated By: Tim Shoemaker MD Dictated Date/Time: 12/02/23 3:17 pm Reviewed By: Tim Shoemaker MD Signed By: Tim Shoemaker MD Signed Date/Time: 12/02/23 3:17 pm Transcribed By: JOJO Transcribed Date/Time: 12/02/23 3:16 pm * Exam Date Time Procedure Performing Provider Status 12/02/23 12:[address] Head/Brain W/O Contrast Briseida Parada; Dayana (Verified) Notes: (CT Head/Brain W/O Contrast) Reason For Exam: Trauma RESULT: CT Head/Brain W/O Contrast CT Head/Brain W/O Contrast CLINICAL INDICATION: Seizure with fall. PRIOR EXAMS: 11/25/2023. TECHNIQUE: Head CT was performed without intravenous contrast, using axial technique and reconstructed in axial and coronal plane. Iterative reconstruction techniques are used to optimize dose and image quality. CTDIvol Head: 47.30 mGy, DLP Head: 772 mGy*cm. FINDINGS: BRAIN: There is no infarct. There is no intracerebral hemorrhage. There is no mass. VENTRICLES, SULCI, AND CISTERNS: The ventricles and sulci are symmetrical and normal. WHITE MATTER: No white matter abnormality.. EXTRA AXIAL SPACES: There is no abnormal epidural, subdural, or subarachnoid blood or fluid. Arachnoid cyst or patsy cisterna magna posteriorly in the posterior fossa unchanged.. SKULL: There is no skull fracture.. PARANASAL SINUSES: The colon again in frontal sinuses and left ethmoids. Otherwise clear.. TEMPORAL BONES: The mastoid air cells are clear, as are the middle ear cavities. IMPRESSION: 1. No acute intracranial abnormality. 2. No skull fracture. WSN: [id number] Ordering Physician: Gabriel Nicole Dictated By: Tj Lopez MD Dictated Date/Time: 12/02/23 12:21 p Reviewed By: Tj Lopez MD Signed By: Tj Lopez MD Signed Date/Time: 12/02/23 12:21 pm Transcribed By: JOJO Transcribed Date/Time: 12/02/23 12:18 pm Vital Signs Most recent to oldest [Reference Range]: 1 2 3 Height 180 cm (12/04/23 2:36 PM) 180 cm (12/04/23 7:47 AM) 180 cm (12/03/23 5:57 PM) Weight 116.3 kg (12/03/23 5:57 PM) Oxygen Saturation [94-100 %] 100 % (12/04/23 2:36 PM) 100 % (12/04/23 7:47 AM) 100 % (12/03/23 8:00 PM) Pulse Rate [55-90 bpm] 58 bpm (12/04/23 2:36 PM) 53 bpm *L* (12/04/23 7:47 AM) 98 bpm *H* (12/03/23 8:00 PM) Body Mass Index [18.5-24.99 kg/m2] 35.9 kg/m2 *>HHI* (12/03/23 5:57 PM) Blood Pressure [90-138/55-84 mm Hg] 122/71mm Hg (12/04/23 2:36 PM) 119/53mm Hg (12/04/23 7:47 AM) 128/82mm Hg (12/03/23 8:00 PM) Respiratory Rate [16-30 br/min] 18 br/min (12/04/23 2:36 PM) 18 br/min (12/04/23 7:47 AM) 15 br/min *L* (12/03/23 8:00 PM) Temperature [96.8-100.4 DegF] 97.4 DegF (12/04/23 2:36 PM) 98.0 DegF (12/04/23 7:47 AM) 98.6 DegF (12/03/23 8:00 PM) Mode of Delivery (Oxygen) Room air (12/04/23 2:36 PM) Room air (12/04/23 7:47 AM) Room air (12/03/23 8:00 PM) Blood pressure sites Arm, right (12/04/23 2:36 PM) Arm, right (12/04/23 7:47 AM) Arm, right (12/03/23 8:00 PM) Temperature Route Oral (12/04/23 2:36 PM) Oral (12/04/23 7:47 AM) Oral (12/03/23 8:00 PM) Dry Weight 116.3 kg (12/03/23 5:57 PM) Social History Social History Type Response Smoking Status 5-9 cigarettes (betw een 1/4 to 1/2 pack)/day in last 30 days; Interested in cessation: No entered on: 08/17/22 Sex Admission evaluation note * Rashad AVILA, Jeremy A: PERFORM, MODIFY Event Display: Admission Note Authored Date: Patient: ??RAND WILEKRSON ? Age:??43 Years?Sex:??Male?:??1980?? Chief Complaint/Reason for Consultation from home, pt had a grand mal seizure for approximately 3 min went down from standing. Unknown headstrike, 6 min post ictal. Pt A&O x 4 at time of arrival . Pt has frequent seizures. 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 He had a witnessed approximately 3 minutes tonic-clonic seizures at home followed by moments of confusion for, he was brought to the emergency department for evaluation.?? Patient admitted to this facility x 2 over the past couple weeks for breakthrough seizures and has AEDs were uptitrated (phenytoin 200/300, clonazepam 2 mg twice daily, and lamotrigine 200mg twice daily).?? Upon arrival to our facility he was hemodynamically stable pressure 135/71, afebrile, maintaining saturation at 100% on room air.?? Initial blood work was fairly stable without abnormalities.?? However the patient tested positive for COVID-19 UA without evidence of infection chest x-ray without acute cardiopulmonary abnormalities.?? CT scan of the head without intracranial abnormalities.?? Patient was then admitted he was given 2 mg of Ativan, 2000 Keppra load and was admitted under medicine for further management evaluation.?? Upon my evaluation, he was lying comfortably without any signs of distress, flat affect however he was saturating x 4.?? He was on enhanced respiratory precautions from in the emergency department. Review of Systems A full review of systems was completed and is otherwise negative except as mentioned in history of present illness. Objective ? Vital Signs?? Temperature: 98.5 DegF (12/02/23 15:32:00) Temperature Route: Oral (12/02/23 15:32:00) Pulse Rate: 68 bpm (12/02/23 15:32:00) Respiratory Rate: 18 br/min (12/02/23 15:32:00) Systolic Blood Pressure:??143 mm Hg??High (12/02/23 15:32:00) Diastolic Blood Pressure: 81 mm Hg (12/02/23 15:32:00) Blood pressure sites: Arm, right (12/02/23 15:32:00) Mean Arterial Pressure: 102 mm Hg (12/02/23 15:32:00) Pulse Pressure: 62 mm Hg (12/02/23 15:32:00) Oxygen Saturation: 99 % (12/02/23 15:32:00) Mode of Delivery (Oxygen): Room air (12/02/23 15:32:00) Early Warning Score: 0 (12/02/23 09:47:20) ? Intake/Output? No Data Available ? Physical Exam General Appearance: The patient is in NAD. Head: atraumatic EENT: MMM, no scleral icterus Cardiovascular: RRR no MRG Respiratory:?? Breath sounds clear to auscultation bilaterally. No wheezing. room air. GI: Soft. Nontender and nondistended. Normal bowel sounds present throughout abdomen. MS:?? No edema or erythema in the lower extremities. Peripheral sensation intact. Skin: warm, dry, no rashes Neuro:?? No slurred speech.?? Patient seen moving their upper and lower extremities independently. Psych: flat affect Lines: Peripheral IV in place. Assessment/Plan Diagnoses Altered mental status ??(R41.82) Bipolar disorder ??(F31.9) Breakthrough seizure ??(G40.919) COVID ??(U07.1) COVID-19 ??(U07.1) Epilepsy ??(G40.909) JENNI (juvenile myoclonic epilepsy) ??(G40.B09) Mood disorder ??(F39) Seizure ??(R56.9) ?? Seizure (R56.9) ?Grouped with??Epilepsy (G40.909),??Breakthrough seizure (G40.919),??JENNI (juvenile myoclonic epilepsy) (G40.B09) ? Patient with a history of??juvenile myoclonic epilepsy, generalized refractory seizure on multiple AED??who presents to the emergency department for evaluation of??witnessed seizure at home. CT scan of the head??is unremarkable. Chest??x-ray without abnormalities. UA without evidence of infection. Unfortunately was found??to be COVID-positive. Was given Ativan in the emergency department with??Fariba kaye and admitted to medicine. Unclear medication adherence. However his presentation could be explained by??COVID infection. Admit to the neurofloor under hospital medicine. Every 4 neurochecks. Seizure precautions. Will obtain??toxicology screen, lamotrigine level and clonazepam level to assess??medication adherence. There is no symptoms or signs suggestive of alcohol withdrawal,??clinically monitor and start CIWA protocol when clinically appropriate. Continue??home meds (clobazam, Lamictal, and phenytoin) As needed??Ativan for seizure activity. Continue to monitor ?? Bipolar disorder (F31.9) ?Grouped with??Mood disorder (F39) ? Resume??olanzapine, Zoloft, trazodone. ?? COVID-19 (U07.1):??Tested positive for COVID-19. Asymptomatic. Maintaining sats above 90%. Continue enhanced isolation precautions. ?? VTE Prophylaxis:??Lovenox ?VTE Prophylaxis Assessment:??Risk Level documented as Low Risk ?? Discharge Planning:? Code Status:??Full code ?Order Code Status:??Code Status Ordered ? Estimated Discharge Date ? Histories Allergies Allergies ?(Active and Proposed Allergies Only) cyclobenzaprine? (Severity: Unknown severity, Onset: Unknown) erythromycin? (Severity: Unknown severity, Onset: Unknown) ?Reactions: rash ? Past Medical History/Problem List Active Problems(5) COPD without exacerbation COVID Obese class II Obesity Polysubstance abuse ? [...] a day Clobazam (clobazam 10 mg oral tablet)?10?Milligram?By Mouth?Daily at bedtime Clobazam (clobazam 10 mg oral tablet)?1?tab(s)?10?Milligram?By Mouth?Daily in AM Clonazepam (clonazePAM 0.5 mg oral tablet)?1?tab(s)?0.5?Milligram?By Mouth?Daily [...] Recent Labs BLOOD COUNT & DIFF WBC 4.3 k/mm3 ()?? 12/02/2023 12:35 RBC 4.52 m/mm3 (Low)?? 12/02/2023 12:35 Hgb 13.7 Gm/dL ()?? 12/02/2023 12:35 Hct 42.6 % ()?? 12/02/2023 12:35 MCV 94.2 femtoliters (High)?? 12/02/2023 12:35 MCH 30.3 pg ()?? 12/02/2023 12:35 MCHC 32.2 Gm/dL (Low)?? 12/02/2023 12:35 Platelet Count 157 k/mm3 ()?? 12/02/2023 12:35 RDW-SD 46.5 femtoliters ()?? 12/02/2023 12:35 MPV 10.8 femtoliters ()?? 12/02/2023 12:35 Nucleated RBC (Automated) 0.0 #/100 WBC'S ()?? 12/02/2023 12:35 Abs. NRBC 0.0 k/mm3 ()?? 12/02/2023 12:35 Abs. Neut 2.9 k/mm3 ()?? 12/02/2023 12:35 Abs. Lymph 0.9 k/mm3 ()?? 12/02/2023 12:35 Abs. [place] 0.5 k/mm3 ()?? 12/02/2023 12:35 Abs. Eo 0.0 k/mm3 ()?? 12/02/2023 12:35 Abs. Baso 0.0 k/mm3 ()?? 12/02/2023 12:35 Neut % 67.3 % ()?? 12/02/2023 12:35 Lymph % 20.3 % ()?? 12/02/2023 12:35 [place] % 11.0 % (High)?? 12/02/2023 12:35 Eos % 0.7 % ()?? 12/02/2023 12:35 Baso % 0.5 % ()?? 12/02/2023 12:35 Imm Gran 0.2 % ()?? 12/02/2023 12:35 Abs. Imm Gran 0.0 k/mm3 ()?? 12/02/2023 12:35 ?? CARDIAC High Sensitivity Troponin (HSTnT) 11 ng/L ()?? 12/02/2023 15:25 ?? CHEM GENERAL Sodium 141 mmol/L ()?? 12/02/2023 11:03 Potassium 3.8 mmol/L ()?? 12/02/2023 11:03 Chloride 105 mmol/L ()?? 12/02/2023 11:03 Bicarbonate Level 20 mmol/L (Low)?? 12/02/2023 11:03 Anion Gap 16 ()?? 12/02/2023 11:03 Glucose Level 103 mg/dL (High)?? 12/02/2023 11:03 Glucose, POC 87 mg/dL ()?? 12/02/2023 12:00 BUN 18 mg/dL ()?? 12/02/2023 11:03 Creatinine-Blood 0.88 mg/dL ()?? 12/02/2023 11:03 Estimated GFR Creatinine 110 ML/MIN/1.73 M2 ()?? 12/02/2023 11:03 Calcium 9.0 mg/dL ()?? 12/02/2023 11:03 Calcium, Ionized pH Corrected 1.21 mmol/L ()?? 12/02/2023 11:03 Magnesium 2.1 mg/dL ()?? 12/02/2023 11:03 Protein, Total 7.3 Gm/dL ()?? 12/02/2023 11:03 Albumin 4.1 Gm/dL ()?? 12/02/2023 11:03 AG Ratio 1.3 ()?? 12/02/2023 11:03 Alkaline Phosphatase 113 units/L ()?? 12/02/2023 11:03 AST (SGOT) 19 units/L ()?? 12/02/2023 11:03 ALT (SGPT) 12 units/L ()?? 12/02/2023 11:03 Bilirubin, Total 0.3 mg/dL ()?? 12/02/2023 11:03 ?? ENDOCRINE/TUMOR MARKER TSH 3.91 uIU/mL ()?? 12/02/2023 11:03 ?? MISC. CHEMISTRY Ammonia, Venous 27 ??mole/L ()?? 12/02/2023 15:28 ?? TOXICOLOGY/TDM Ethanol, Serum or Plasma NONE DETECTED mg/dL ()?? 12/02/2023 12:35 Dilantin Level 23.2 mg/L (High)?? 12/02/2023 11:03 Valproic Level <2.8 mg/L (Low)?? 12/02/2023 12:35 Clobazam Level 41 ()?? 11/26/2023 08:06 Desmethylclobazam Level 455 ()?? 11/26/2023 08:06 ?? UA/URINALYSIS Appear/Color, Urine LIGHT YELLOW ()?? 12/02/2023 13:00 Specific [place], Urine 1.018 ()?? 12/02/2023 13:00 pH, Urine 8.0 ()?? 12/02/2023 13:00 Albumin, Urine 1+ (Abnormal)?? 12/02/2023 13:00 Glucose, Urine NEGATIVE ()?? 12/02/2023 13:00 Ketones, Urine NEGATIVE ()?? 12/02/2023 13:00 Bilirubin, Urine NEGATIVE ()?? 12/02/2023 13:00 Hemoglobin, Urine NEGATIVE ()?? 12/02/2023 13:00 Nitrite, Urine NEGATIVE ()?? 12/02/2023 13:00 Leukocyte, Urine NEGATIVE ()?? 12/02/2023 13:00 Urobilinogen NORMAL mg/dL ()?? 12/02/2023 13:00 WBC's, Urine 1 /HPF ()?? 12/02/2023 13:00 RBC's, Urine 1 /HPF ()?? 12/02/2023 13:00 Squamous Epith <1 /HPF ()?? 12/02/2023 13:00 Mucus SLIGHT /LPF ()?? 12/02/2023 13:00 ?? VIROLOGY COVID-19 PCR Result POSITIVE (Abnormal)?? 12/02/2023 11:50 ? EKG study * Event Display: ECG 12-Lead Authored Date: Please click on pdf link to open report * Event Display: ECG 12-Lead Authored Date: Ventricular Rate: 61 BPM Atrial Rate: 61 BPM P-R Interval: 198 ms QRS Duration: 102 ms Q-T Interval: 398 ms QTC Calculation(Bazett): 400 ms P [place]: 38 degrees R [place]: 7 degrees T [place]: 17 degrees Normal sinus rhythm Cannot rule out Anterior infarct , age undetermined Abnormal ECG When compared with ECG of 25-NOV-2023 14:52, T wave inversion now evident in Inferior leads Confirmed by Shashi Fajardo ([id number]) on 12/02/2023 12:49:00 PM [place]: [facility] Progress note * Farzad Wray LPN: PERFORM, SIGN, VERIFY Event Display: [facility] Authored Date: Patient: RAND WILKERSON Age: 43 years Sex: Male : 1980 Associated Diagnoses: None Author: Farzad Wray LPN Findings Evaluation Patient arrived from ER by stretcher able to ambulate into room without assistance or SOB, did mention that he was feeling a little dizzy upon getting in the bed, VSS. Patient is A&Ox4 able to answer all questions appropriately. Patient is s/p seizure and fall with no LOC. Seizure precautions initiated. Patient admits to having suicidal thoughts within the past month but stated didn't go through with the attempt because he was inpatient at [facility]. Patient denies thoughts at the present time. Patient also endorses that he previously drank multiple drinks daily and quit last week,patient is also a smoker but declined offer of smoking cessation methods while here. Patient able to make needs known, call pham within reach, safety maintained. . * Trang AVILA, Li: PERFORM Event Display: Progress [facility] Authored Date: Patient: ??RAND WILKERSON ? Age:??43 Years?Sex:??Male?:??1980?? Subjective pt seen and examined at bedside no further seizure episodes neuro recommended increased clobazam to 15mg BID pt only reports chronic back pain and no other symptoms covid positive but no symptoms , on isolation if seizure free overnight then can be d.natanael tomorrow Review of Systems Review of symptoms negative except as noted above Objective Vital Signs?? Temperature: 98.5 DegF (12/03/23 05:47:00) Temperature Route: Oral (12/02/23 21:07:00) Pulse Rate: 62 bpm (12/03/23 13:22:00) Respiratory Rate: 16 br/min (12/03/23 13:22:00) Systolic Blood Pressure: 121 mm Hg (12/03/23 13:22:00) Diastolic Blood Pressure: 59 mm Hg (12/03/23 13:22:00) Blood pressure sites: Arm, right (12/03/23 13:22:00) Mean Arterial Pressure: 65 mm Hg (12/03/23 01:36:00) Pulse Pressure: 62 mm Hg (12/03/23 13:22:00) Oxygen Saturation: 97 % (12/03/23 13:22:00) Mode of Delivery (Oxygen): Room air (12/03/23 13:22:00) Early Warning Score: 0 (12/03/23 13:23:09) ? Intake/Output? No Data Available ? Physical Exam ?General :??No apparent distress?Respiratory??: Bilateral air entry fair. No wheeze or crackles. ?Cardiac??: Regular rate and rhythm, S1S2+ ?Abdomen/GI??: soft, non-tender, non-distended, bowel sounds present. ?Extremities??: No edema.?Neurologic??: Alert & oriented x 3, No focal neuro deficits .? _ Inpatient Medications Medications (21) Active SCHEDULED: (12) Clobazam 10 mg Tablet (clobazam 10 mg oral tablet) ??15 mg, By Mouth, 2 times a day Clonazepam 0.5 mg Tablet (clonazePAM 0.5 mg oral tablet) ??0.5 mg, By Mouth, Daily in AM Clonazepam 1 mg Tablet (clonazePAM 1 mg oral tablet) ??1 mg, By Mouth, Daily at bedtime Enoxaparin 40 mg Inj (Enoxaparin Inj) ??40 mg 0.4 mL, Subcutaneous Injection, Every 24 hours LamoTRIGINE 100 mg Tablet (lamotrigine 100 mg [...] Lorazepam 2 mg Inj Syringe (Ativan Inj) ??4 mg, IV Push Slowly, Every 5 hours Melatonin 3 mg Tablet (Melatonin Tablet) [...] Recent Labs BLOOD COUNT & DIFF WBC 4.3 k/mm3 ()?? 12/02/2023 12:35 RBC 4.52 m/mm3 (Low)?? 12/02/2023 12:35 Hgb 13.7 Gm/dL ()?? 12/02/2023 12:35 Hct 42.6 % ()?? 12/02/2023 12:35 MCV 94.2 femtoliters (High)?? 12/02/2023 12:35 MCH 30.3 pg ()?? 12/02/2023 12:35 MCHC 32.2 Gm/dL (Low)?? 12/02/2023 12:35 Platelet Count 157 k/mm3 ()?? 12/02/2023 12:35 RDW-SD 46.5 femtoliters ()?? 12/02/2023 12:35 MPV 10.8 femtoliters ()?? 12/02/2023 12:35 Nucleated RBC (Automated) 0.0 #/100 WBC'S ()?? 12/02/2023 12:35 Abs. NRBC 0.0 k/mm3 ()?? 12/02/2023 12:35 Abs. Neut 2.9 k/mm3 ()?? 12/02/2023 12:35 Abs. Lymph 0.9 k/mm3 ()?? 12/02/2023 12:35 Abs. [place] 0.5 k/mm3 ()?? 12/02/2023 12:35 Abs. Eo 0.0 k/mm3 ()?? 12/02/2023 12:35 Abs. Baso 0.0 k/mm3 ()?? 12/02/2023 12:35 Neut % 67.3 % ()?? 12/02/2023 12:35 Lymph % 20.3 % ()?? 12/02/2023 12:35 [place] % 11.0 % (High)?? 12/02/2023 12:35 Eos % 0.7 % ()?? 12/02/2023 12:35 Baso % 0.5 % ()?? 12/02/2023 12:35 Imm Gran 0.2 % ()?? 12/02/2023 12:35 Abs. Imm Gran 0.0 k/mm3 ()?? 12/02/2023 12:35 ?? CARDIAC High Sensitivity Troponin (HSTnT) 11 ng/L ()?? 12/02/2023 15:25 ?? CHEM GENERAL Sodium 141 mmol/L ()?? 12/02/2023 11:03 Potassium 3.8 mmol/L ()?? 12/02/2023 11:03 Chloride 105 mmol/L ()?? 12/02/2023 11:03 Bicarbonate Level 20 mmol/L (Low)?? 12/02/2023 11:03 Anion Gap 16 ()?? 12/02/2023 11:03 Glucose Level 103 mg/dL (High)?? 12/02/2023 11:03 Glucose, POC 87 mg/dL ()?? 12/02/2023 12:00 BUN 18 mg/dL ()?? 12/02/2023 11:03 Creatinine-Blood 0.88 mg/dL ()?? 12/02/2023 11:03 Estimated GFR Creatinine 110 ML/MIN/1.73 M2 ()?? 12/02/2023 11:03 Calcium 9.0 mg/dL ()?? 12/02/2023 11:03 Calcium, Ionized pH Corrected 1.21 mmol/L ()?? 12/02/2023 11:03 Magnesium 2.1 mg/dL ()?? 12/02/2023 11:03 Protein, Total 7.3 Gm/dL ()?? 12/02/2023 11:03 Albumin 4.1 Gm/dL ()?? 12/02/2023 11:03 AG Ratio 1.3 ()?? 12/02/2023 11:03 Alkaline Phosphatase 113 units/L ()?? 12/02/2023 11:03 AST (SGOT) 19 units/L ()?? 12/02/2023 11:03 ALT (SGPT) 12 units/L ()?? 12/02/2023 11:03 Bilirubin, Total 0.3 mg/dL ()?? 12/02/2023 11:03 ?? ENDOCRINE/TUMOR MARKER TSH 3.91 uIU/mL ()?? 12/02/2023 11:03 ?? MISC. CHEMISTRY Ammonia, Venous 27 ??mole/L ()?? 12/02/2023 15:28 ?? TOXICOLOGY/TDM Ethanol, Serum or Plasma NONE DETECTED mg/dL ()?? 12/02/2023 12:35 Dilantin Level 19.9 mg/L ()?? 12/03/2023 05:29 Valproic Level <2.8 mg/L (Low)?? 12/02/2023 12:35 Clobazam Level 41 ()?? 11/26/2023 08:06 Desmethylclobazam Level 455 ()?? 11/26/2023 08:06 ?? UA/URINALYSIS Appear/Color, Urine LIGHT YELLOW ()?? 12/02/2023 13:00 Specific [place], Urine 1.018 ()?? 12/02/2023 13:00 pH, Urine 8.0 ()?? 12/02/2023 13:00 Albumin, Urine 1+ (Abnormal)?? 12/02/2023 13:00 Glucose, Urine NEGATIVE ()?? 12/02/2023 13:00 Ketones, Urine NEGATIVE ()?? 12/02/2023 13:00 Bilirubin, Urine NEGATIVE ()?? 12/02/2023 13:00 Hemoglobin, Urine NEGATIVE ()?? 12/02/2023 13:00 Nitrite, Urine NEGATIVE ()?? 12/02/2023 13:00 Leukocyte, Urine NEGATIVE ()?? 12/02/2023 13:00 Urobilinogen NORMAL mg/dL ()?? 12/02/2023 13:00 WBC's, Urine 1 /HPF ()?? 12/02/2023 13:00 RBC's, Urine 1 /HPF ()?? 12/02/2023 13:00 Squamous Epith <1 /HPF ()?? 12/02/2023 13:00 Mucus SLIGHT /LPF ()?? 12/02/2023 13:00 ?? VIROLOGY COVID-19 PCR Result POSITIVE (Abnormal)?? 12/02/2023 11:50 ? Assessment/Plan Diagnoses Altered mental status ??(R41.82) Bipolar disorder ??(F31.9) Breakthrough seizure ??(G40.919) COVID ??(U07.1) COVID-19 ??(U07.1) Epilepsy ??(G40.909) JENNI (juvenile myoclonic epilepsy) ??(G40.B09) Mood disorder ??(F39) Seizure ??(R56.9) ?? Seizure (R56.9) ?Grouped with??Epilepsy (G40.909),??Breakthrough seizure (G40.919),??JENNI (juvenile myoclonic epilepsy) (G40.B09) ? Patient with a history of??juvenile myoclonic epilepsy, generalized refractory seizure on multiple AED??who presents to the emergency department for evaluation of??witnessed seizure at home. CT scan of the head??is unremarkable. Chest??x-ray without abnormalities.UA without evidence of infection.Unfortunately was found??to be COVID-positive. Was given Ativan in the emergency department with??Fariba load and admitted to medicine. Unclear medication adherence.However his presentation could be explained by??COVID infection. no further seizure episodes neuro recommended increased clobazam to 15mg BID.Continue??home meds (clobazam, Lamictal, and phenytoin) Every 4 neurochecks. Seizure precautions. There is no symptoms or signs suggestive of alcohol withdrawal,??clinically monitor and start CIWA protocol when clinically appropriate. As needed??Ativan for seizure activity. Continue to monitor-if seizure free overnight then can be d.natanael tomorrow ?? Bipolar disorder (F31.9) ?Grouped with??Mood disorder (F39) ? Resume??olanzapine, Zoloft, trazodone. ?? COVID-19 (U07.1):??Tested positive for COVID-19. Asymptomatic.on room air Continue enhanced isolation precautions. ?? VTE Prophylaxis:??Lovenox ?VTE Prophylaxis Assessment:??Risk Level documented as Low Risk ?? Discharge Planning:? Code Status:??Full code ?Order Code Status:??Code Status Ordered ? * Cole aCntu: PERFORM Event Display: Progress Note Hospital Authored Date: [id number] Patient: ??RAND WILKERSON ? Age:??43 Years?Sex:??Male?:??1980?? Patient w/ breakthrough seizures in setting of +COVID infection, recent medication changes for breakthrough seizures. This will be the third admission in November. Most recent medication change 11/25 -clobazam increased to 10 mg BID: recommend increasing to 15 mg BID c/w home lamotrigine 300 mg BID and phenytoin 200 mg AM/ 300 mg PM. pending clobazam and lamotrigine levels Seizure precautions Dilantin level 19.9. CTH nonacute. ? Please reach out if need formal neurology consult. ?? D/w Dr. Hobbs and Dr. Costello Note * Paul Ruiz RN: PERFORM Event Display: Discharge/Transfer Note Hospital Authored Date: Nursing Discharge Note Entered On: 12/04/2023 18:01 EDT Performed On: 12/04/2023 18:00 EDT by Paul Ruiz RN Nursing Discharge Note 2 Discharge Time : 12/04/2023 17:45 EDT Discharge Level of Care at Discharge : Homehealth/VNA Patient Left Unit Via : Wheelchair Patient Accompanied Off Unit with : Responsible adult DC Instructions Provided & Signed by Pt : Yes Patient Understands D/C Instructions : Yes Patient Instructions Discharge Signed : Yes Did Pt have Specialty Bed or Wound Vac : No Paul Ruiz RN - 12/04/2023 18:00 EDT * Jonnie Sandoval MD, Alin: PERFORM Event Display: Discharge/Transfer Note Hospital Authored Date: Patient: ??RAND WILKERSON ? Age:??43 Years?Sex:??Male?:??1980?? Patient Information Discharge Location: W3 Primary Care Physician: Not on Staff, PCP Admit Date/Time: 12/02/23 17:13 Discharge Disposition Discharge Disposition: Home: No Services Discharge Diagnosis ?? Seizure (R56.9) COVID (U07.1) Epilepsy (G40.909) Bipolar disorder (F31.9) Mood disorder (F39) JENNI (juvenile myoclonic epilepsy) (G40.B09) _ Discharge Medications Albuterol/Ipratropium (Combivent Respimat 20 [...] tablet)?50?Milligram?1?tablet?By Mouth?Daily at bedtime ? Medications Started none Medications Discontinued none Doses Changed Clobazam increased to 15 mg BID Allergies Allergies ?(Active and Proposed Allergies Only) cyclobenzaprine? (Severity: Unknown severity, Onset: Unknown) erythromycin? (Severity: Unknown severity, Onset: Unknown) ?Reactions: rash ? 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 Seizure (R56.9) ? Grouped with Epilepsy (G40.909), Breakthrough seizure (G40.919), JENNI (juvenile myoclonic epilepsy) (G40.B09) ? Patient with a history of juvenile myoclonic epilepsy, generalized refractory seizureon multiple AED who presents to the emergency department for evaluation of witnessed seizure at home. ??CT scan of the head is unremarkable. ??Chest x-ray without abnormalities .UA without evidence of UTI. He was found to be COVID-positive. ??Received Ativan in the emergency department with Keppra load and admitted to medicine. There was no symptoms or signs suggestive of alcohol withdrawal ??Unclear medication adherence. Neurology recommended to increase Clobazam to 15 mg BID, and continue with other AEDS. Lamictal level and free fosphenytoin levels were pending on discharge. InitiallyDilantin mildly elevated, repeat back to normal range plan: continue with clobazam to 15mg BID and Continue home meds (Lamictal, and phenytoin) ?? COVID-19 (U07.1): Tested positive for COVID-19. Asymptomatic, not hypoxic. No need for steroids or Remdesivir. ?? Bipolar disorder (F31.9) ? Grouped with Mood disorder (F39). Patient denied any SI or HI. ? Continue olanzapine, Zoloft, trazodone. ? Patient was stable for discharge home. ? Objective Assessment and Plan Discharge Planning:? Vital Signs?? Temperature: 98 DegF (12/04/23 07:47:00) Temperature Route: Oral (12/04/23 07:47:00) Pulse Rate:??53 bpm??Low (12/04/23 07:47:00) Respiratory Rate: 18 br/min (12/04/23 07:47:00) Systolic Blood Pressure: 119 mm Hg (12/04/23 07:47:00) Diastolic Blood Pressure:??53 mm Hg??Low (12/04/23 07:47:00) Blood pressure sites: Arm, right (12/04/23 07:47:00) Mean Arterial Pressure: 75 mm Hg (12/04/23 07:47:00) Pulse Pressure: 66 mm Hg (12/04/23 07:47:00) Oxygen Saturation: 100 % (12/04/23 07:47:00) Mode of Delivery (Oxygen): Room air (12/04/23 07:47:00) Early Warning Score: 0 (12/04/23 07:47:55) ? . Physical Exam Constitutional: Alert, in no acute distress. Mental Status: Oriented to person, place and time. Head: Normocephalic. Respiratory: Clear to auscultation bilaterally. No wheezing, rales or rhonchi. Cardiovascular: S1 S2 regular. No murmurs, rubs or gallops.??RRR Gastrointestinal: Abdomen soft, non-tender, non-distended. Normal bowel sounds.?? Neurologic:??Moves all extremities spontaneously.?? Skin: No rashes or lesions. No jaundice Musculoskeletal: No cyanosis or clubbing. No gross deformities. No pitting edema on Right or Left LE ?? Pending Results Clobazam Level ordered on 12/02/2023 Lamotrigine Level ordered on 12/02/2023 Phenytoin Free Level ordered on 12/03/2023 Follow-Up Appointments Added Follow Up ?Time Frame ?Comments Follow up with primary care provider?2 to 3 weeks Results Discharge Labs BLOOD COUNT & DIFF WBC 4.3 k/mm3 ()?? 12/02/2023 12:35 RBC 4.52 m/mm3 (Low)?? 12/02/2023 12:35 Hgb 13.7 Gm/dL ()?? 12/02/2023 12:35 Hct 42.6 % ()?? 12/02/2023 12:35 MCV 94.2 femtoliters (High)?? 12/02/2023 12:35 MCH 30.3 pg ()?? 12/02/2023 12:35 MCHC 32.2 Gm/dL (Low)?? 12/02/2023 12:35 Platelet Count 157 k/mm3 ()?? 12/02/2023 12:35 RDW-SD 46.5 femtoliters ()?? 12/02/2023 12:35 MPV 10.8 femtoliters ()?? 12/02/2023 12:35 Nucleated RBC (Automated) 0.0 #/100 WBC'S ()?? 12/02/2023 12:35 Abs. NRBC 0.0 k/mm3 ()?? 12/02/2023 12:35 Abs. Neut 2.9 k/mm3 ()?? 12/02/2023 12:35 Abs. Lymph 0.9 k/mm3 ()?? 12/02/2023 12:35 Abs. [place] 0.5 k/mm3 ()?? 12/02/2023 12:35 Abs. Eo 0.0 k/mm3 ()?? 12/02/2023 12:35 Abs. Baso 0.0 k/mm3 ()?? 12/02/2023 12:35 Neut % 67.3 % ()?? 12/02/2023 12:35 Lymph % 20.3 % ()?? 12/02/2023 12:35 [place] % 11.0 % (High)?? 12/02/2023 12:35 Eos % 0.7 % ()?? 12/02/2023 12:35 Baso % 0.5 % ()?? 12/02/2023 12:35 Imm Gran 0.2 % ()?? 12/02/2023 12:35 Abs. Imm Gran 0.0 k/mm3 ()?? 12/02/2023 12:35 ?? CARDIAC High Sensitivity Troponin (HSTnT) 11 ng/L ()?? 12/02/2023 15:25 ? CHEM GENERAL Sodium 141 mmol/L ()?? 12/02/2023 11:03 Potassium 3.8 mmol/L ()?? 12/02/2023 11:03 Chloride 105 mmol/L ()?? 12/02/2023 11:03 Bicarbonate Level 20 mmol/L (Low)?? 12/02/2023 11:03 Anion Gap 16 ()?? 12/02/2023 11:03 Glucose Level 103 mg/dL (High)?? 12/02/2023 11:03 Glucose, POC 87 mg/dL ()?? 12/02/2023 12:00 BUN 18 mg/dL ()?? 12/02/2023 11:03 Creatinine-Blood 0.88 mg/dL ()?? 12/02/2023 11:03 Estimated GFR Creatinine 110 ML/MIN/1.73 M2 ()?? 12/02/2023 11:03 Calcium 9.0 mg/dL ()?? 12/02/2023 11:03 Calcium, Ionized pH Corrected 1.21 mmol/L ()?? 12/02/2023 11:03 Magnesium 2.1 mg/dL ()?? 12/02/2023 11:03 Protein, Total 7.3 Gm/dL ()?? 12/02/2023 11:03 Albumin 4.1 Gm/dL ()?? 12/02/2023 11:03 AG Ratio 1.3 ()?? 12/02/2023 11:03 Alkaline Phosphatase 113 units/L ()?? 12/02/2023 11:03 AST (SGOT) 19 units/L ()?? 12/02/2023 11:03 ALT (SGPT) 12 units/L ()?? 12/02/2023 11:03 Bilirubin, Total 0.3 mg/dL ()?? 12/02/2023 11:03 ?? ENDOCRINE/TUMOR MARKER TSH 3.91 uIU/mL ()?? 12/02/2023 11:03 ? HEME OTHER Hold Lavender Top SPECIMEN DISCARDED AFTER 24 HOURS. ()?? 12/02/2023 12:35 Hold Blue Top SPECIMEN DISCARDED AFTER 4 HOURS. ()?? 12/02/2023 12:35 ?? MISC. CHEMISTRY Ammonia, Venous 27 ??mole/L ()?? 12/02/2023 15:28 ? TOXICOLOGY/TDM Ethanol, Serum or Plasma NONE DETECTED mg/dL ()?? 12/02/2023 12:35 Dilantin Level 19.9 mg/L ()?? 12/03/2023 05:29 Valproic Level <2.8 mg/L (Low)?? 12/02/2023 12:35 Cannabinoid Screen, Urine NONE DETECTED ()?? 12/03/2023 18:07 Cocaine Metabolite Screen, Urine NONE DETECTED ()?? 12/03/2023 18:07 Opiate Screen, Urine NONE DETECTED ()?? 12/03/2023 18:07 ?? UA/URINALYSIS Appear/Color, Urine LIGHT YELLOW ()?? 12/02/2023 13:00 Specific [place], Urine 1.018 ()?? 12/02/2023 13:00 pH, Urine 8.0 ()?? 12/02/2023 13:00 Albumin, Urine 1+ (Abnormal)?? 12/02/2023 13:00 Glucose, Urine NEGATIVE ()?? 12/02/2023 13:00 Ketones, Urine NEGATIVE ()?? 12/02/2023 13:00 Bilirubin, Urine NEGATIVE ()?? 12/02/2023 13:00 Hemoglobin, Urine NEGATIVE ()?? 12/02/2023 13:00 Nitrite, Urine NEGATIVE ()?? 12/02/2023 13:00 Leukocyte, Urine NEGATIVE ()?? 12/02/2023 13:00 Urobilinogen NORMAL mg/dL ()?? 12/02/2023 13:00 WBC's, Urine 1 /HPF ()?? 12/02/2023 13:00 RBC's, Urine 1 /HPF ()?? 12/02/2023 13:00 Squamous Epith <1 /HPF ()?? 12/02/2023 13:00 Mucus SLIGHT /LPF ()?? 12/02/2023 13:00 Hold Urine Culture Testing available 48 hours from time of collection. ()?? 12/02/2023 13:00 ?? URINE OTHER Est Creatinine Clearance 115.99 mL/min ()?? 12/03/2023 18:12 ? VIROLOGY COVID-19 PCR Specimen Source NASAL ()?? 12/02/2023 11:50 COVID-19 PCR Result POSITIVE (Abnormal)?? 12/02/2023 11:50 ? Image ?XR Chest 2 Views Frontal and Lat??12/02/2023 14:54 by Jovi Nur ?IMPRESSION: Normal. ?CT Head/Brain W/O Contrast??12/02/2023 12:17 by Briseida Parada ?IMPRESSION: 1. No acute intracranial abnormality. 2. No skull fracture. ?? 34 minutes spent on discharge * Paul Ruiz RN: PERFORM Event Display: Patient Education/Instruction Authored Date: [id number] Inpatient Adult Discharge Instructions. [place] [id number] Name: RAND WILKERSON : 1980?? Visit: 12/02/2023 17:13?? Current Date: 12/04/2023 16:41 ?? Account: [id number]?? Inpatient Adult Discharge Instructions We would like [...] and their families. Surveys are administered by [employer] ?? If further treatment with your primary care physician or another doctor is recommended, it is important for you to keep the appointment. Call your primary care physician or return to the Emergency Department immediately if your condition worsens, fails to improve, or new symptoms develop. If you need to find a doctor, you can call [facility] Link for a referral at [phone] or toll free at [phone] ([phone]) or log in to [email or web address].. ?? [facility], in keeping with [facility] guidance, no longer requires face masks for [...] health care parvin of your choosing. [employer] is a website that allows you to securely view your medical information including your hospital discharge summary, office visit summaries, medications and follow-up visits. You can also request appointments, renew medications, and request access to your medical information using a health care parvin of your choosing, or just ask a question. You can enroll at [email or web address] or register during your next office visit. You have been discharged from [facility], Patient Care Unit: W3??. If you have any questions regarding these instructions, including results of studies pending, afteryou leave, please call us and we will be happy to assist you 28/09. [facility] Your Care Team Attending Physician Alin Arellano MD?? Consulting Providers Alin Arellano MD?? Discharging Providers Alin Arellano MD Reason for Your Visit from home, pt had a grand mal seizure for approximately 3 min went down from standing. Unknown headstrike, 6 min post ictal. Pt A&O x 4 at time of arrival . Pt has frequent seizures.?? Your Diagnosis Bipolar disorder Breakthrough seizure COVID Epilepsy JENNI (juvenile myoclonic epilepsy) Mood disorder Tests Performed Below is a partial list of the tests performed during your hospitalization. You may have had other tests and procedures not included in this list. Please discuss all test results with your provider. Ammonia Venous Calcium Ionized Cannabinoid Urine Screen CBC w/ Differential Cocaine Urine Screen Comprehensive Metabolic Panel COVID-19 (2019 Novel Coronavirus) PCR Dilantin Level Ethanol Level GLUCOSE POC High??Sensitivity??Troponin T Hold Blue Top Tube Hold Lavender Top Tube Magnesium Level Opiate Screen Urine Phenytoin Total Level Troponin T, High Sensitivity TSH with T4 Reflex (Adults Only) Urinalysis w/hold for Urine Culture Valproic Acid Level CT Head/Brain W/O Contrast XR Chest 2 Views Frontal and Lat Ammonia Venous?? CBC w/ Differential?? COVID-19 (2019 Novel Coronavirus) PCR?? CT Head/Brain W/O Contrast?? Cannabinoid Urine Screen?? Clobazam Level?? Cocaine Urine Screen?? Comprehensive Metabolic Panel?? Ethanol Level?? Glucose POC?? High??Sensitivity??Troponin T (Troponin T, High Sensitivity)?? Hold Blue Top Tube?? Hold Lavender Top Tube?? Ionized Calcium (Calcium Ionized)?? Lamotrigine Level?? Magnesium Level?? Opiate Screen Urine?? Phenytoin Free Level?? Phenytoin Total Level?? TSH with T4 Reflex (Adults Only)?? Urinalysis w/hold for Urine Culture?? Valproic Acid Level?? Chest 2 Views Frontal and Lat (XR Chest 2 Views Frontal and Lat)?? Primary Care Provider Name Matthieu AVILA? Advance Directive Health Care Proxy on File Yes - Health Care Proxy Yes - MOLST Discharge Vitals Temperature: 97.4 DegF Height: 180 cm Pulse Rate: 58 bpm Weight: 116.3 kg Respiratory Rate: 18 br/min Body Mass Index:??35.9 kg/m2??Critical Systolic Blood Pressure: 122 mm Hg Body surface area: 2.41 Diastolic Blood Pressure: 71 mm Hg ?? Oxygen Saturation: 100 % ?? Studies Pending All studies ordered during this hospital stay have been completed unless listed below. Please discuss all pending results with your provider listed above in these instructions. ?? Clobazam Level?? Lamotrigine Level?? Phenytoin Free Level?? What to do next Instructions From Your Doctor ?? Orders? 12/04/23 11:01:00 EDT?? Prescriptions??, ??12/04/23 11:01:00 EDT?? You Need to Schedule the Following Appointments Follow Up with??Follow up with primary care provider When:??Within 2 to 3 weeks Discharge Medications RAND WILKERSON :1980 Visit Date:12/02/2023 Medications: Please continue your medications until treatment is completed or stopped by your provider. Medications not listed below should be discontinued. Discuss any questions related to medications with your provider. What How Much When Instructions Next Dose Changed Clobazam (clobazam 10 mg oral tablet) 1.5 tab(s) Oral Twice a day 9am and 9pm Duration: 30 Days Pickup at [facility]/pharmacy #[id number] 12/03 9pm Unchanged Albuterol/ Ipratropium (Combivent Respimat 20 [...] tab(s) Oral Daily at Bedtime Pharmacy Information [facility]/pharmacy #[id number]: [address], [place] [id number] [phone] ?? What How Much When Comments Stop Taking Clonazepam (clonazePAM 0.5 mg oral tablet) 1 tab(s) Oral Daily in the morning Stop Taking Clonazepam (clonazePAM 1 mg oral tablet) 1 tab(s) Oral Daily at Bedtime While in hosp ?? Prescription Given During Visit Clobazam (clobazam 10 mg oral tablet) - 1.5 tablet = 15 mg, By Mouth, 2 times a day, # 90 tablet, 0Refills, [facility]/pharmacy #[id number], [address] [place] [phone]?? Laboratory Results Below is a partial list of the most recent Laboratory test results done prior to this discharge. You may have had other tests and procedures not included in this list. Please discuss all test resultswith your provider. Est Creatinine Clearance - 115.99 mL/min (12/03/2023) Ammonia Venous (12/02/2023) ???Ammonia, Venous - 27 ??mole/L Calcium Ionized (12/02/2023) ???Calcium, Ionized pH Corrected - 1.21 mmol/L Cannabinoid Urine Screen (12/03/2023) ???Cannabinoid Screen, Urine - NONE DETECTED CBC w/ Differential (12/02/2023) ???WBC - 4.3 k/mm3???RBC - 4.52 m/mm3???Hgb - 13.7 Gm/dL???Hct - 42.6 %???MCV - 94.2 femtoliters???MCH - 30.3 pg???MCHC - 32.2 Gm/dL???Platelet Count - 157 k/mm3???RDW-SD - 46.5 femtoliters???MPV - 10.8 femtoliters???Nucleated RBC (Automated) - 0.0 #/100 WBC'S???Abs. NRBC - 0.0 k/mm3???Abs. Neut - 2.9 k/mm3???Abs. Lymph - 0.9 k/mm3???Abs. [place] - 0.5 k/mm3???Abs. Eo - 0.0 k/mm3???Abs. Baso - 0.0 k/mm3???Neut % - 67.3 %???Lymph % - 20.3 %???[place] % - 11.0 %???Eos % - 0.7 %???Baso % - 0.5 %???Imm Gran - 0.2 %???Abs. Imm Gran - 0.0 k/mm3 Cocaine Urine Screen (12/03/2023) ???Cocaine Metabolite Screen, Urine - NONE DETECTED Comprehensive Metabolic Panel (12/02/2023) ???Sodium - 141 mmol/L???Potassium - 3.8 mmol/L???Chloride - 105 mmol/L???Bicarbonate Level - 20 mmol/L???Anion Gap - 16???Glucose Level - 103 mg/dL???BUN - 18 mg/dL???Creatinine-Blood - 0.88 mg/dL???Estimated GFR Creatinine - 110 ML/MIN/1.73 M2???Calcium - 9.0 mg/dL???Protein, Total - 7.3 Gm/dL???Albumin - 4.1 Gm/dL???AG Ratio - 1.3???Alkaline Phosphatase - 113 units/L???AST (SGOT) - 19 units/L???ALT (SGPT) - 12 units/L???Bilirubin, Total - 0.3 mg/dL COVID-19 (2019 Novel Coronavirus) PCR (12/02/2023) ???COVID-19 PCR Specimen Source - NASAL???COVID-19 PCR Result - POSITIVE Dilantin Level (12/02/2023) ???Dilantin Level - 23.2 mg/L Ethanol Level (12/02/2023) ???Ethanol, Serum or Plasma - NONE DETECTED GLUCOSE POC (12/02/2023) ???Glucose, POC - 87 mg/dL High??Sensitivity??Troponin T (12/02/2023) ???High Sensitivity Troponin (HSTnT) - 16 ng/L Hold Blue Top Tube (12/02/2023) ???Hold Blue Top - SPECIMEN DISCARDED AFTER 4 HOURS. Hold Lavender Top Tube (12/02/2023) ???Hold Lavender Top - SPECIMEN DISCARDED AFTER 24 HOURS. Magnesium Level (12/02/2023) ???Magnesium - 2.1 mg/dL Opiate Screen Urine (12/03/2023) ???Opiate Screen, Urine - NONE DETECTED Phenytoin Total Level (12/03/2023) ???Dilantin Level - 19.9 mg/L Troponin T, High Sensitivity (12/02/2023) ???High Sensitivity Troponin (HSTnT) - 11 ng/L TSH with T4 Reflex (Adults Only) (12/02/2023) ???TSH - 3.91 uIU/mL Urinalysis w/hold for Urine Culture (12/02/2023) ???Appear/Color, Urine - LIGHT YELLOW???Specific [place], Urine - 1.018???pH, Urine - 8.0???Albumin, Urine - 1+???Glucose, Urine - NEGATIVE???Ketones, Urine - NEGATIVE???Bilirubin, Urine - NEGATIVE???Hemoglobin, Urine - NEGATIVE???Nitrite, Urine - NEGATIVE???Leukocyte, Urine - NEGATIVE???Urobilinogen - NORMAL? ?WBC's, Urine - 1 /HPF? ?RBC's, Urine - 1 /HPF? ?Squamous Epith - <1 /HPF? ?Mucus - SLIGHT???Hold Urine Culture - Testing available 48 hours from time of collection. Valproic Acid Level (12/02/2023) ? ?Valproic Level - <2.8 mg/L You [...] Educational Leaflet Providered with your Discharge Instructions. Valuables and Belongings I fully understand and agree that [facility] accepts no responsibility for all my personal [...] ?? Date for Pt to Sign Valuables/Belongings: 12/02/23 15:33:00 ?? Other Discharge Information ? Pulmonary Rehab [...] are strongly encouraged to quit. Please call [facility] [employer] Link at [phone] or [phone] ([phone]) or log in to [email or web address] for referrals to smoking cessation programs. ?? 311 Suicide & Crisis Lifeline is available 28/09 if you or someone you know needs to find a reason to keep living. By calling 004 you'll be connected to a skilled, trained counselor at a crisis center in your area. INPATIENT DISCHARGE INSTRUCTIONS SIGNATURE PAGE RAND WILKERSON Location:[facility] Registration Date and Time:12/02/2023 17:13 EDT Primary Care Physician: Not on Staff, PCP Attending Physician: Jonnie Sandoval MD, Alin, I RAND WILKERSON, have received the above patient education materials/instructions and have verbalized understanding. If ambulance or transport services are being used I further acknowledge being given a choice of service. ?? If you need to contact me, please call me at this number: . Patient/Factory Hand Name: Patient/Factory Hand Signature: Relationship to Patient: Witness Name/Signature: Date: * Alin Arellano MD: VERIFY, PERFORM, SIGN Event Display: Patient Education Handout Authored Date: [id number] Patient Care team information Care Team Personnel Name: Gus Mcgraw RN Position: [facility] RN Member Role: Primary Care Nurse Name: Patience Mcpherson RN Position: S RN Member Role: Primary Care Nurse Name: Therese Gross RN Position: [facility] RN Member Role: Primary Care Nurse Name: Isadora Rice RN Position: [facility] RN Member Role: Primary Care Nurse Name: Stas Erwin RN Position: S RN Member Role: Primary Care Nurse Name: Angelika Gu RN Position: S RN Member Role: Primary Care Nurse Name: Melanie Sainz RN Position: [facility] RN Member Role: Primary Care Nurse Name: Kavita Polo NP Position: [facility] Associate Professional Member Role: Primary Care Nurse Address: Address: [address] [place] [id number] Name: [place] RN, Beau Ward Position: [facility] RN Member Role: Primary Care Nurse Name: Not on Staff, PCP Position: [facility] Physician (General Medicine) Member Role: PCP Name: See Chavez RN Position: [facility] RN Member Role: Primary Care Nurse Name: Myke Mcfadden RN Position: [facility] RN Member Role: Primary Care Nurse Name: Monika Marquez RN Position: [facility] RN Member Role: Primary Care Nurse Name: Elaine Reis RN Position: [facility] RN Member Role: Primary Care Nurse Name: Clay Quiñonez RN Position: [facility] RN Member Role: Primary Care Nurse Name: Veronika Dinero LPN Position: [facility] RN Member Role: Primary Care Nurse Name: Paul Ruiz RN Position: [facility] RN Member Role: Primary Care Nurse Care Team Related Persons Name: JEANNE GIRON Address: home [address] [place] [address] Name: CHARITO DOOLEY Address: home [address] [place] [address]
--- OUTSIDE RECORDS SUMMARY | 2024-02-03 15:00 | XMS_ITS | Continuity of Care Document ---
Author Organization [facility] Address [address] [place] [id number]- Care Team Providers Care Case Assembler Name Role Phone Not on Staff, PCP Primary Care Physician Unavail able [place] [facility] [place] 11/25/23 - 11/26/[address] [address]- Encounter Diagnosis Seizure(Final) - 11/25/23 Discharge Disposition: A-D/C Home Attending Physician: Marcelle Whaley MD Admitting Physician: Senait Khan DO Referring Physician: Not on Staff, Referring MD Allergies, Adverse Reactions, Alerts Substance Reaction Severity Status erythromycin rash Active Medications clobazam 10 mg oral tablet 1 tablet = 10 mg, By Mouth, Daily in AM, # 30 tablet, 1 Refills, Maintenance, 11/26/23 15:15:00 EDT, Tablet, [facility], Partial fill upon patient request if the prescription is for a schedule II opioid drug., 180, cm, 11/26/23 14:57:00... Start Date: 11/26/23 Status: Ordered clobazam 10 mg oral tablet = 10 mg, By Mouth, Daily at bedtime, # 30 tablet, 3 Refills, Maintenance, 11/21/23 11:14:00 EDT, Tablet, [facility], Partial fill upon patient request if the prescription is for a schedule II opioid drug., 180, cm, 11/20/23 14:48:00 EDT,... Start Date: 11/21/23 Status: Ordered clonazePAM 0.5 mg oral tablet 1 tablet = 0.5 mg, By Mouth, Daily in AM, # 30 tablet, 0 Refills, Maintenance, 04/24/21 9:30:00 EST, Tablet, [facility] #[id number], Partial fill upon patient request if the prescription is for a schedule II opioid drug., 101.81, cm, 04/24/21 8:52:00 EST,... Start Date: 04/24/21 Status: Ordered clonazePAM 1 mg oral tablet 1 tablet = 1 mg, By Mouth, Daily at bedtime, While in hosp, # 30 tablet, 0 Refills, Maintenance, 04/24/21 9:31:00 EST, Tablet, [facility]/pharmacy #[id number], Partial fill upon patient request if [...] 03/31/21 12:38:00 EST, Route to Pharmacy Electronically, [facility], Partial fill upon patient [...] Confirmed Active COVID Confirmed Active Obese class II Confirmed Active Obesity Confirmed Active Polysubstance abuse Confirmed Active Results Radiology Reports * Exam Date Time Procedure Performing Provider Status 11/25/23 8:49 PM Chest Portable Dave Peters; Auth (V erified) Notes: (Chest Portable) Reason For Exam: Infection workup for possible infection;Other: RESULT: Chest Portable Chest Portable Reason: Other:; Infection workup for possible infection; Clinical Question(s): Pneumonia COMPARISON: 11/19/2023 FINDINGS: LINES AND TUBES: None. LUNGS AND PLEURA: Clear lungs. Normal pulmonary vascularity. No pleural effusion. No pneumothorax. HEART, MEDIASTINUM AND VELMA: Heart is normal in size. Normal mediastinal and hilar contour. BONES AND SOFT TISSUES: No acute abnormality. IMPRESSION: No pneumonia. WSN: [id number] Ordering Physician: Marcos Lopez Dictated By: Martinez Huang MD Dictated Date/Time: 11/25/23 9:20 pm Reviewed By: Martinez Huang MD Signed By: Martinez Huang MD Signed Date/Time: 11/25/23 9:20 pm Transcribed By: JOJO Transcribed Date/Time: 11/25/23 9:20 pm * Exam Date Time Procedure Performing Provider Status 11/25/23 3:[address] Head-Hyper Acute Stroke Ella Wing; Auth (Verified) Notes: (CT Head-Hyper Acute Stroke) Reason For Exam: Neuro deficit, acute, stroke suspected;Other: RESULT: CT Head-Hyper Acute Stroke CT Head-Hyper Acute Stroke INDICATION: pt had seizures today- has known history of seizures, seizure medication dosage was recently changed; Reason: Other:; Neuro deficit, acute, stroke suspected; Clinical Question(s): Other:;Hematoma Infarction TECHNIQUE: Noncontrast head CT using axial technique and reconstructed in axial and coronal planes.Iterative reconstruction techniques are used to optimize dose and image quality. CTDIvol Body: 19.78 mGy, DLP Body: 915 mGy*cm. CTDIvol Head: 45.50 mGy, DLP Head: 1544 mGy*cm. COMPARISON: Head CT dated 11/19/2023. FINDINGS: Magneto Repairer view findings, lines and tubes: None. BRAIN AND EXTRA-AXIAL SPACES: No parenchymal hemorrhage, midline shift, or mass effect. Luke-white matter differentiation is wellpreserved. No acute infarct. Unchanged prominence of the low density extra-axial fluid in the posterior fossa. Ventricles, sulci, and basilar cisterns are otherwise unremarkable. No white matter lesions. No subarachnoid hemorrhage. No subdural or epidural collection. CALVARIUM, SKULL BASE, AND SOFT TISSUES: No fractures or suspicious bony lesions. The paranasal sinuses and mastoid air cells are clear. Visualized orbits and globes are intact. The extracranial soft tissues are unremarkable. IMPRESSION: No acute intracranial pathology. A message regarding these findings was sent to Marlon Huggins DO via swiftQueue at 11/25/2023 4:02 PM,with confirmation of receipt of the message. WSN: [id number] Ordering Physician: Marlon Huggins Dictated By: Ericka Guzmán MD Dictated Date/Time: 11/25/23 4:03 pm Reviewed By: Ericka Guzmán MD Signed By: Ericka Guzmán MD Signed Date/Time: 11/25/23 4:03 pm Transcribed By: JOJO Transcribed Date/Time: 11/25/23 3:57 pm * Exam Date Time Procedure Performing Provider Status 11/25/23 3:[address] Angio Neck Hyperacute Stroke Celeste Gomez; Auth (Verified) Notes: (CT Angio Neck Hyperacute Stroke) Reason For Exam: Aneurysm, neck vessel(s);Other: RESULT: CT Angio Neck Hyperacute Stroke CT Angio Head Hyperacute Stroke, CT Angio Neck Hyperacute Stroke Hx of Present Illness: pt had seizures today- has known history of seizures, seizure medication doseage was recently changed; Reason: Other:; Stroke; Clinical Question(s): Other:; Hematoma Aneurysm /Other: Additional history per technologist: Left-sided weakness. TECHNIQUE: CT angiogram of the head and neck was performed after bolus administration of intravenous contrast. 100 mL of Omnipaque 300 was administered intravenously. Coronal and sagittal MIP reformatted images were obtained. Additional 3-D images were created on a separate workstation under concurrent supervision by the attending radiologist. All stenoses are measured using NASCET criteria. Weight-based protocol using automatic tube modulation was used to optimize exposure parameters. CTDIvol Body: 19.78 mGy, DLP Body: 915 mGy*cm. CTDIvol Head: 45.50 mGy, DLP Head: 1544 mGy*cm. COMPARISON: Noncontrast CT head performed concurrently. FINDINGS: CTA OF THE NECK: Arch: There is a three vessel aortic arch. The origins of the supra aortic vessels are patent. Right carotid system: The common carotid and cervical internal carotid arteries are patent. No stenosis (0%) by NASCET criteria. There is no dissection or aneurysm. Left carotid system: The common carotid and cervical internal carotid arteries are patent. No stenosis (0%) by NASCET criteria. There is no dissection or aneurysm. There is a co-dominant vertebral artery system. Right vertebral: No significant stenosis. No evidence of dissection or aneurysm. Left vertebral: No significant stenosis. No evidence of dissection or aneurysm. Other: Soft tissues and bones: No evidence of lymphadenopathy or mass. The thyroid is unremarkable. Visualized lungs are blurred by motion artifact, without significant superimposed airspace opacity. No acute osseous abnormality. CTA OF THE HEAD: Anterior circulation: Bilateral intracranial ICAs are patent. There is trace atherosclerotic calcification along the right ICA but no stenosis. Bilateral STEPHANIA and MCA branches are patent. There is no significant stenosis, proximal cutoff, aneurysm, or vascular malformation. Posterior circulation: Bilateral intracranial vertebral arteries, the basilar artery, and bilateralsuperior cerebellar and posterior cerebral branches are patent. There is no significant stenosis, proximal cutoff, aneurysm, or vascular malformation. Veins: Major dural venous sinuses are patent. Other: Soft tissues and bones: No midline shift or effacement of the basal cisterns. No space-occupying hemorrhage. No territorial loss of luke-white matter differentiation. Prominence of low density extra axial fluid in the posterior fossa is similar to prior. Orbits are unremarkable. There is mild scattered mucosal thickening in the paranasal sinuses without fluid levels. The patient is edentulous. IMPRESSION: No proximal occlusion or high grade stenosis in the major arteries of the head and neck. WSN: [id number] Ordering Physician: Marlon Huggins Dictated By: Charissa Patel MD Dictated Date/Time: 11/25/23 5:29 pm Reviewed By: Charissa Patel MD Signed By: Charissa Patel MD Signed Date/Time: 11/25/23 5:29 pm Transcribed By: JOJO Transcribed Date/Time: 11/25/23 3:51 pm * Exam Date Time Procedure Performing Provider Status 11/25/23 3:[address] Angio Head Hyperacute Stroke Celeste Gomez; Dayana (Verified) Notes: (CT Angio Head Hyperacute Stroke) Reason For Exam: Stroke;Other: RESULT: CT Angio Head Hyperacute Stroke CT Angio Head Hyperacute Stroke, CT Angio Neck Hyperacute Stroke Hx of Present Illness: pt had seizures today- has known history of seizures, seizure medication doseage was recently changed; Reason: Other:; Stroke; Clinical Question(s): Other:; Hematoma Aneurysm /Other: Additional history per technologist: Left-sided weakness. TECHNIQUE: CT angiogram of the head and neck was performed after bolus administration of intravenous contrast. 100 mL of Omnipaque 300 was administered intravenously. Coronal and sagittal MIP reformatted images were obtained. Additional 3-D images were created on a separate workstation under concurrent supervision by the attending radiologist. All stenoses are measured using NASCET criteria. Weight-based protocol using automatic tube modulation was used to optimize exposure parameters. CTDIvol Body: 19.78 mGy, DLP Body: 915 mGy*cm. CTDIvol Head: 45.50 mGy, DLP Head: 1544 mGy*cm. COMPARISON: Noncontrast CT head performed concurrently. FINDINGS: CTA OF THE NECK: Arch: There is a three vessel aortic arch. The origins of the supra aortic vessels are patent. Right carotid system: The common carotid and cervical internal carotid arteries are patent. No stenosis (0%) by NASCET criteria. There is no dissection or aneurysm. Left carotid system: The common carotid and cervical internal carotid arteries are patent. No stenosis (0%) by NASCET criteria. There is no dissection or aneurysm. There is a co-dominant vertebral artery system. Right vertebral: No significant stenosis. No evidence of dissection or aneurysm. Left vertebral: No significant stenosis. No evidence of dissection or aneurysm. Other: Soft tissues and bones: No evidence of lymphadenopathy or mass. The thyroid is unremarkable. Visualized lungs are blurred by motion artifact, without significant superimposed airspace opacity. No acute osseous abnormality. CTA OF THE HEAD: Anterior circulation: Bilateral intracranial ICAs are patent. There is trace atherosclerotic calcification along the right ICA but no stenosis. Bilateral STEPHANIA and MCA branches are patent. There is no significant stenosis, proximal cutoff, aneurysm, or vascular malformation. Posterior circulation: Bilateral intracranial vertebral arteries, the basilar artery, and bilateralsuperior cerebellar and posterior cerebral branches are patent. There is no significant stenosis, proximal cutoff, aneurysm, or vascular malformation. Veins: Major dural venous sinuses are patent. Other: Soft tissues and bones: No midline shift or effacement of the basal cisterns. No space-occupying hemorrhage. No territorial loss of luke-white matter differentiation. Prominence of low density extra axial fluid in the posterior fossa is similar to prior. Orbits are unremarkable. There is mild scattered mucosal thickening in the paranasal sinuses without fluid levels. The patient is edentulous. IMPRESSION: No proximal occlusion or high grade stenosis in the major arteries of the head and neck. WSN: [id number] Ordering Physician: Marlon Huggins Dictated By: Charissa Patel MD Dictated Date/Time: 11/25/23 5:29 pm Reviewed By: Charissa Patel MD Signed By: Charissa Patel MD Signed Date/Time: 11/25/23 5:29 pm Transcribed By: JOJO Transcribed Date/Time: 11/25/23 3:51 pm Vital Signs Most recent to oldest [Reference Range]: 1 2 3 Height 180 cm (11/26/23 2:57 PM) 180 cm (11/26/23 11:49 AM) Weight 118 kg (11/26/23 11:49 AM) Oxygen Saturation [94-100 %] 99 % (11/26/23 2:57 PM) 99 % (11/26/23 11:49 AM) 99 % (11/26/23 11:00 AM) Pulse Rate [55-90 bpm] 66 bpm (11/26/23 2:57 PM) 63 bpm (11/26/23 11:49 AM) 63 bpm (11/26/23 11:00 AM) Body Mass Index [18.5-24.99 kg/m2] 36.42 kg/m2 *>HHI* (11/26/23 11:49 AM) Blood Pressure [90-138/55-84 mm Hg] 121/66mm Hg (11/26/23 2:57 PM) 140/71mm Hg *H* (11/26/23 11:49 AM) 140/71mm Hg *H* (11/26/23 11:00 AM) Respiratory Rate [16-30 br/min] 20 br/min (11/26/23 2:57 PM) 16 br/min (11/26/23 11:49 AM) 16 br/min (11/26/23 11:00 AM) Temperature [96.8-100.4 DegF] 97.2 DegF (11/26/23 2:57 PM) 97.7 DegF (11/26/23 11:49 AM) 97.7 DegF (11/26/23 11:00 AM) Mode of Delivery (Oxygen) Room air (11/26/23 2:57 PM) Room air (11/26/23 11:49 AM) Room air (11/26/23 11:00 AM) Blood pressure sites Arm, right (11/26/23 2:57 PM) Arm, right (11/26/23 11:49 AM) Arm, right (11/26/23 11:00 AM) Temperature Route Oral (11/26/23 2:57 PM) Oral (11/26/23 11:49 AM) Oral (11/26/23 11:00 AM) Dry Weight 118 kg (11/26/23 11:49 AM) Weight Obtained Via Bed scale (11/26/23 11:49 AM) Dry Weight Obtained Via Bed scale (11/26/23 11:49 AM) Social History Social History Type Response Smoking Status 5-9 cigarettes (betw een 1/4 to 1/2 pack)/day in last 30 days; Interested in cessation: No entered on: 08/17/22 Sex Admission evaluation note * Jessica AVILA, Marcos Mac: PERFORM, MODIFY Event Display: Admission Note Authored Date: [id number] Patient: ??RAND WILKERSON ? Age:??43 Years?Sex:??Male?:??1980?? Chief Complaint/Reason for Consultation Seizure 2 w/ known hx History of Present Illness 44-year-old male??with past medical history of tonic-clonic epilepsy??on multiple AEDs,??COPD, obesity, substance abuse, bipolar??who presented to ED??with 2 tonic-clonic seizure??witnessed by his uncle??and had another episode??in ED??received IM??benzodiazepine.? After initial evaluation??in ED??concern was??right lower extremity and left upper extremity weakness??which lasted around 10 minutes.?Stroke code activated??and patient had a CTA??head and neck??and CT head??without any acute??findings.?Patient back to baseline without any weakness visual def icit??or dysarthria.?When I have seen the patient??he was not having any complaints??other than generalized weakness and??about this??recurrent seizures.?Patient was??also seen by neurology??Who recommended increasing clobazam to 10 mg twice daily and admission to medicine team for further mon itoring.? Of note patient was also admitted to the??hospital on November 19 and discharged on ??with recommendation??of??Clobazam??dose to be??increased to 5 mg a.m. and 10 mg p.m. and he was kept on the same lamotrigine 300 mg twice daily and phenytoin 200 mg a.m./300 mg p.m. ?? Patient reports compliant with his medications Last alcohol use was before last hospitalization Denies smoking and alcohol use currently Patient denies suicidal ideation or thoughts Review of Systems none except as above?? Objective Vital Signs?? Temperature: 98.2 DegF (11/25/23 21:06:00) Temperature Route: Oral (11/25/23 21:06:00) Pulse Rate: 75 bpm (11/25/23 21:06:00) Respiratory Rate: 24 br/min (11/25/23 21:06:00) Systolic Blood Pressure: 132 mm Hg (11/25/23:06:00) Diastolic Blood Pressure: 77 mm Hg (11/25/23:06:00) Blood pressure sites: Arm, right (11/25/23 21:06:00) Mean Arterial Pressure: 86 mm Hg (11/25/23 18:21:00) Pulse Pressure: 55 mm Hg (11/25/23:06:00) Oxygen Saturation: 94 % (11/25/23 21:06:00) Mode of Delivery (Oxygen): Room air (11/25/23 21:06:00) Early Warning Score: 4 (11/25/23 21:08:49) ?? NIH Stroke Scale Level of Consciousness for Stroke Scale: Alert (11/25/23 15:33:00) Response Month/Age: Answers both questions correctly (11/25/23 15:33:00) Response Open/Close Eyes: Performs both tasks correctly (11/25/23 15:33:00) Best Gaze: Normal (11/25/23 15:33:00) Visual: No visual loss (11/25/23 15:33:00) Facial Palsy: Normal symmetrical movements (11/25/23 15:33:00) Motor Function Left Arm: No drift (11/25/23 15:33:00) Motor Function Right Arm: No drift (11/25/23 15:33:00) Motor Function Left Leg: No drift (11/25/23 15:33:00) Motor Function Right Leg: No drift (11/25/23 15:33:00) Limb Ataxia: Absent (11/25/23 15:33:00) Sensory: Normal; no sensory loss (11/25/23 15:33:00) Best Language: No aphasia (11/25/23 15:33:00) Dysarthria NIH Stroke Scale: Normal (11/25/23 15:33:00) Extinction and Inattention: No abnormality (11/25/23 15:33:00) NIH Stroke Scale Score: 0 (11/25/23 15:33:00) ? Physical Exam Gen- not in acute distress,comfortably lying on bed, speaking in full sentences. HEENT- Normocephalic, Atraumatic, No pallor, icterus Neck-supple, no JVD Heart-S1S2(+),??regular, no murmurs. lungs- Clear, b/l air entry, no wheezing. Abdomen-soft, nontender,nondistended,??bowel sounds present, No guarding. Extremities-pulses palpable. No pedal edema. No calf tenderness. Neurological- AAO??3. No gross focal neurological deficits noted. Psychiatric-patient???s mood is stable. Assessment/Plan Diagnoses Alcohol dependence ??(F10.20) Bipolar disorder ??(F31.9) COPD without exacerbation ??(J44.9) Depression ??(F32.A) High anion gap metabolic acidosis ??(E87.29) Seizure ??(R56.9) ?? Assessment:??44-year-old male??with past medical history of tonic-clonic epilepsy on multiple AEDs??admitted to the hospital for breakthrough seizure.? Second admission in November,??neurology on the case,??uptitrated AED and will monitor.?No clear??metabolic or infectious causes??yet.? Bipolar disorder (F31.9) ?Grouped with??Depression (F32.A) ? No suicidal ideation or thoughts Continue home medication olanzapine, sertraline, trazodone ?? Alcohol dependence (F10.20):??no??signs of??alcohol withdrawal??at the??moment, but s/p??ativan. CIWA??score of 0 now,??has not been drinking since the last??admission ?? plan:?? - CIWA protocol with Ativan,??although low suspicion but neuro recommended - continue multivitamin, Thiamine, Folic acid ?? COPD without exacerbation (J44.9):??no signs of COPD exacerbation, will monitor ?? High anion gap metabolic acidosis (E87.29):??Likely 2/2 seizure, will monitor. Will get lactic acidAM, likely elevated due to seizure. Will hydrate w IVF bolus and start diet ?? Seizure (R56.9):??Patient with recurrent seizures,??neurology has seen the patient??recommended increasing clobazam??to??10 mg twice daily??and admission to medicine team.?No concern for infectiongiven??negative UA,??will get chest x-ray, but patient does not have any cough or fever??have low suspicion of pneumonia ?? plan:?? -In case of seizure Ativan 4 mg IVP ordered??if??lasts more than 3 minutes, or recurrent seizures without return to baseline - Clobazam 10 mg twice daily - Continue lamotrigine??300 mg twice daily - Continue phenytoin 200 mg??every morning/300 mg every afternoon - pending Lamotrigine??levels. - appreciate neurology follow up?? - seizure precautions - Every 4 hours neuro-checks - U tox positive for??benzodiazepine - Will send ammonia level - Follow-up phenytoin, valproic??acid,??Lamotrigine level, clobazam level - Patient has been seizure-free for 3-4 hours??and reports he is very hungry,??able to tolerate??water without any difficulty in front of me will start diet ?? VTE Prophylaxis:??Lovenox ?VTE Prophylaxis Assessment:??VTE Prophylaxis Ordered ?? Discharge Planning:??pending clinical course - home w/o services? Ongoing Medical Necessity:??Breaktrough seizure? Code Status:??FULL code ?Order Code Status:??Code Status Ordered ?? have seen the pt on??11/25/2023 I spent a total of 60??minutes in patient care that includes??reviewing the chart and medical records, speaking with the patient, examining the patient, interpreting labs/imaging/ekg, formulating anddiscussing the treatment plan, counseling the patient, placing orders, communicating with??consultants and nurses??and documenting the encounter. ?? Please note that I have used [employer] dictation system to??transcribe??this note and it may contain unintentional errors. Please feel free to contact me for any clarification. ? Estimated Discharge Date ? Histories Allergies [...] ? Inpatient Medications Medications (21) Active SCHEDULED: (13) Clobazam 10 mg Tablet (clobazam 10 mg oral tablet) ??10 mg, By Mouth, Every 12 hours Clonazepam 0.5 mg Tablet (clonazePAM 0.5 mg [...] ??300 mg, By Mouth, Daily at bedtime Phenytoin 100 mg ER Capsule (Dilantin Capsule) ??200 mg, By Mouth, Daily in AM Sertraline 50 mg Tablet (sertraline 50 mg oral tablet) ??100 mg, By Mouth, Daily Thiamine 100 mg Tablet (Vitamin B1 100 mg oral tablet) ??100 mg, By Mouth, Daily Trazodone 50 mg Tablet (traZODone 50 mg oral tablet) ??50 mg, By Mouth, Daily at bedtime CONTINUOUS: (0) PRN: (8) Acetaminophen 325 mg Tablet (Acetaminophen Tablet) ??650 [...] Recent Labs BLOOD COUNT & DIFF WBC 8.2 k/mm3 ()?? 11/25/2023 16:33 RBC 4.54 m/mm3 (Low)?? 11/25/2023 16:33 Hgb 14.2 Gm/dL ()?? 11/25/2023 16:33 Hct 45.6 % ()?? 11/25/2023 16:33 MCV 100.4 femtoliters (High)?? 11/25/2023 16:33 MCH 31.3 pg ()?? 11/25/2023 16:33 MCHC 31.1 g/dL (Low)?? 11/25/2023 16:33 Platelet Count 240 k/mm3 ()?? 11/25/2023 16:33 RDW-SD 50.9 femtoliters (High)?? 11/25/2023 16:33 MPV 11.6 femtoliters ()?? 11/25/2023 16:33 Nucleated RBC (Automated) 0.0 #/100 WBC'S ()?? 11/25/2023 16:33 Abs. NRBC 0.0 k/mm3 ()?? 11/25/2023 16:33 Abs. Neut 4.9 k/mm3 ()?? 11/25/2023 16:33 Abs. Lymph 2.5 k/mm3 ()?? 11/25/2023 16:33 Abs. [place] 0.7 k/mm3 ()?? 11/25/2023 16:33 Abs. Eo 0.1 k/mm3 ()?? 11/25/2023 16:33 Abs. Baso 0.0 k/mm3 ()?? 11/25/2023 16:33 Neut % 59.4 % ()?? 11/25/2023 16:33 Lymph % 30.7 % ()?? 11/25/2023 16:33 [place] % 8.4 % ()?? 11/25/2023 16:33 Eos % 0.9 % ()?? 11/25/2023 16:33 Baso % 0.4 % ()?? 11/25/2023 16:33 Imm Gran 0.2 % ()?? 11/25/2023 16:33 Abs. Imm Gran 0.0 k/mm3 ()?? 11/25/2023 16:33 ?? CHEM GENERAL Sodium 138 mmol/L ()?? 11/25/2023 15:01 Potassium 3.6 mmol/L ()?? 11/25/2023 15:01 Chloride 96 mmol/L (Low)?? 11/25/2023 15:01 Bicarbonate Level 16 mmol/L (Low)?? 11/25/2023 15:01 Anion Gap 26 (High)?? 11/25/2023 15:01 Glucose Level 112 mg/dL (High)?? 11/25/2023 15:01 Glucose, POC 84 mg/dL ()?? 11/25/2023 14:52 BUN 23 mg/dL (High)?? 11/25/2023 15:01 Creatinine-Blood 0.80 mg/dL ()?? 11/25/2023 15:01 Estimated GFR Creatinine 113 ML/MIN/1.73 M2 ()?? 11/25/2023 15:01 Calcium 9.7 mg/dL ()?? 11/25/2023 15:01 Magnesium 2.0 mg/dL ()?? 11/25/2023 15:01 Protein, Total 8.0 Gm/dL ()?? 11/25/2023 15:01 Albumin 4.5 Gm/dL ()?? 11/25/2023 15:01 AG Ratio 1.3 ()?? 11/25/2023 15:01 Alkaline Phosphatase 118 units/L ()?? 11/25/2023 15:01 AST (SGOT) 22 units/L ()?? 11/25/2023 15:01 ALT (SGPT) 14 units/L ()?? 11/25/2023 15:01 Bilirubin, Total 0.4 mg/dL ()?? 11/25/2023 15:01 ?? ENDOCRINE/TUMOR MARKER TSH 1.64 uIU/mL ()?? 11/25/2023 15:01 ?? TOXICOLOGY/TDM Ethanol, Serum or Plasma NONE DETECTED mg/dL ()?? 11/25/2023 15:45 Dilantin Level 18.3 mg/L ()?? 11/25/2023 15:01 Valproic Level <2.8 mg/L (Low)?? 11/25/2023 15:45 Barbiturate Screen, Urine NONE DETECTED ()?? 11/25/2023 16:39 Cannabinoid Screen, Urine NONE DETECTED ()?? 11/25/2023 16:39 Cocaine Metabolite Screen, Urine NONE DETECTED ()?? 11/25/2023 16:39 Benzodiazepine Screen, Urine POSITIVE (Abnormal)?? 11/25/2023 16:39 Amphetamine Screen, Urine NONE DETECTED ()?? 11/25/2023 16:39 Opiate Screen, Urine NONE DETECTED ()?? 11/25/2023 16:39 Levetiracetam Level <2 mg/L ()?? 11/25/2023 15:45 ?? UA/URINALYSIS Appear/Color, Urine LIGHT YELLOW ()?? 11/25/2023 16:39 Specific [place], Urine 1.047 (High)?? 11/25/2023 16:39 pH, Urine 6.5 ()?? 11/25/2023 16:39 Albumin, Urine NEGATIVE ()?? 11/25/2023 16:39 Glucose, Urine NEGATIVE ()?? 11/25/2023 16:39 Ketones, Urine NEGATIVE ()?? 11/25/2023 16:39 Bilirubin, Urine NEGATIVE ()?? 11/25/2023 16:39 Hemoglobin, Urine NEGATIVE ()?? 11/25/2023 16:39 Nitrite, Urine NEGATIVE ()?? 11/25/2023 16:39 Leukocyte, Urine NEGATIVE ()?? 11/25/2023 16:39 Urobilinogen NORMAL mg/dL ()?? 11/25/2023 16:39 WBC's, Urine NONE SEEN /HPF ()?? 11/25/2023 16:39 RBC's, Urine 2 /HPF ()?? 11/25/2023 16:39 Mucus SLIGHT /LPF ()?? 11/25/2023 16:39 ?? VIROLOGY COVID-19 by RT-PCR NEGATIVE ()?? 11/25/2023 16:00 ? Abnormal Labs ?? BLOOD COUNT & DIFF Abs. Imm Gran?0.0 k/mm3 ()?11/25/2023 16:33 Abs. NRBC?0.0 k/mm3 ()?11/25/2023 16:33 Imm Gran?0.2 % ()?11/25/2023 16:33 MCHC?31.1 g/dL (Low)?11/25/2023 16:33 MCV?100.4 femtoliters (High)?11/25/2023 16:33 Nucleated RBC (Automated)?0.0 #/100 WBC'S ()?11/25/2023 16:33 RBC?4.54 m/mm3 (Low)?11/25/2023 16:33 RDW-SD?50.9 femtoliters (High)?11/25/2023 16:33 ?? CHEM GENERAL AG Ratio?1.3 ()?11/25/2023 15:01 Anion Gap?26 (High)?11/25/2023 15:01 BUN?23 mg/dL (High)?11/25/2023 15:01 Bicarbonate Level?16 mmol/L (Low)?11/25/2023 15:01 Chloride?96 mmol/L (Low)?11/25/2023 15:01 Estimated GFR Creatinine?113 ML/MIN/1.73 M2 ()?11/25/2023 15:01 Glucose Level?112 mg/dL (High)?11/25/2023 15:01 ?? HEME OTHER Hold Blue Top?SPECIMEN DISCARDED AFTER 4 HOURS. ()?11/25/2023 15:00 ?? TOXICOLOGY/TDM Amphetamine Screen, Urine?NONE DETECTED ()?11/25/2023 16:39 Barbiturate Screen, Urine?NONE DETECTED ()?11/25/2023 16:39 Benzodiazepine Screen, Urine?POSITIVE (Abnormal)?11/25/2023 16:39 Cannabinoid Screen, Urine?NONE DETECTED ()?11/25/2023 16:39 Cocaine Metabolite Screen, Urine?NONE DETECTED () ?11/25/2023 16:39 Ethanol, Serum or Plasma?NONE DETECTED mg/dL ()?11/25/2023 15:45 Levetiracetam Level?<2 mg/L ()?11/25/2023 15:45 Opiate Screen, Urine?NONE DETECTED ()?11/25/2023 16:39 Valproic Level?<2.8 mg/L (Low)?11/25/2023 15:45 ?? UA/URINALYSIS Albumin, Urine?NEGATIVE ()?11/25/2023 16:39 Appear/Color, Urine?LIGHT YELLOW ()?11/25/2023 16:39 Bilirubin, Urine?NEGATIVE ()?11/25/2023 16:39 Glucose, Urine?NEGATIVE ()?11/25/2023 16:39 Hemoglobin, Urine?NEGATIVE ()?11/25/2023 16:39 Hold Urine?Testing Available 24 hours from Time of Collection () ?11/25/2023 16:39 Hold Urine Culture?Testing available 48 hours from time of collection. () ?11/25/2023 16:39 Ketones, Urine?NEGATIVE ()?11/25/2023 16:39 Leukocyte, Urine?NEGATIVE ()?11/25/2023 16:39 Mucus?SLIGHT /LPF ()?11/25/2023 16:39 Nitrite, Urine?NEGATIVE ()?11/25/2023 16:39 Specific [place], Urine?1.047 (High)?11/25/2023 16:39 Urobilinogen?NORMAL mg/dL ()?11/25/2023 16:39 ?? VIROLOGY COVID-19 by RT-PCR?NEGATIVE ()?11/25/2023 16:00 ?? Note: Critical results are displayed in red. ? Urinalysis Albumin, Urine: NEGATIVE (16:39) Appear/Color, Urine: LIGHT YELLOW (16:39) Bilirubin, Urine: NEGATIVE (16:39) Glucose, Urine: NEGATIVE (16:39) Hemoglobin, Urine: NEGATIVE (16:39) Hold Urine: Testing Available 24 hours from Time of Collection (16:39) Hold Urine Culture: Testing available 48 hours from time of collection. (16:39) Hold Urine Culture: Testing available 48 hours from time of collection. (16:39) Ketones, Urine: NEGATIVE (16:39) Leukocyte, Urine: NEGATIVE (16:39) Mucus: SLIGHT (16:39) Nitrite, Urine: NEGATIVE (16:39) pH, Urine: 6.5 (16:39) RBC's, Urine: 2 /HPF (16:39) Specific [place], Urine:??1.047??High (16:39) Urobilinogen: NORMAL (16:39) WBC's, Urine: NONE SEEN (16:39) ?? Blood Gases?? No qualifying data available. ? EKG study * Event Display: ECG 12-Lead Authored Date: Please click on pdf link to open report * Event Display: ECG 12-Lead Authored Date: Ventricular Rate: 77 BPM Atrial Rate: 77 BPM P-R Interval: 182 ms QRS Duration: 110 ms Q-T Interval: 390 ms QTC Calculation(Bazett): 441 ms P [place]: 61 degrees R [place]: 24 degrees T [place]: 59 degrees Normal sinus rhythm Normal ECG When compared with ECG of 27-AUG-2023 17:21, [place] interval has decreased Vent. rate has increased BY 25 BPM QT has lengthened Confirmed by Shashi Fajardo ([id number]) on 11/25/2023 3:06:09 PM [place]: Shashi Fajardo [facility] Progress note * Lynnette Hancock MD: PERFORM Event Display: [facility] Authored Date: Patient: ??RAND WILKERSON ? Age:??43 Years?Sex:??Male?:??1980? This Pt screened in on their admission Reform suicide assessment.? Please assess for suicidal ideation and place formal psychiatry consult if needed.? * Devin Gregory: PERFORM Event Display: Progress Note Hospital Authored Date: Patient: ??RAND WILKERSON ? Age:??43 Years?Sex:??Male?:??1980?? Subjective interim hx no sz overnight no recent illness or missed dose Review of Systems Allergies Allergies ?(Active and Proposed Allergies Only) erythromycin? (Severity: Unknown severity, Onset: Unknown) ?Reactions: rash ? Objective Vital Signs?? Temperature: 97.7 DegF (11/26/23 11:49:00) Temperature Route: Oral (11/26/23 11:49:00) Pulse Rate: 63 bpm (11/26/23 11:49:00) Respiratory Rate: 16 br/min (11/26/23 11:49:00) Systolic Blood Pressure:??140 mm Hg??High (11/26/23 11:49:00) Diastolic Blood Pressure: 71 mm Hg (11/26/23 11:49:00) Blood pressure sites: Arm, right (11/26/23 11:49:00) Mean Arterial Pressure: 94 mm Hg (11/26/23 11:49:00) Pulse Pressure: 69 mm Hg (11/26/23 11:49:00) Oxygen Saturation: 99 % (11/26/23 11:49:00) Mode of Delivery (Oxygen): Room air (11/26/23 11:49:00) Early Warning Score: 2 (11/26/23 11:56:59) ? Physical Exam Gen- NAD? neuro- mentation- alert and oriented x person, place, time, and disposition. ??able to name simple objectssuch as watch and eyeglasses. ??able to follow simple and complex commands. ??no aphasia.?? eyes- PERRLA, EOMI, no visual field deficits face- symmetric, sensation intact speech- clear, fluent ?? Motor- good muscle bulk and tone RUE- 5/5 ?? RLE- 5/5 LUE- 5/5 ?LLE- 5/5 ?? sensation-??intact to LT bilaterally ? _ Inpatient Medications Medications (21) Active SCHEDULED: (13) Clobazam 10 mg Tablet (clobazam 10 mg oral tablet) ??10 mg, By Mouth, Every 12 hours Clonazepam 0.5 mg Tablet (clonazePAM 0.5 mg [...] ??300 mg, By Mouth, Daily at bedtime Phenytoin 100 mg ER Capsule (Dilantin Capsule) ??200 mg, By Mouth, Daily in AM Sertraline 50 mg Tablet (sertraline 50 mg oral tablet) ??100 mg, By Mouth, Daily Thiamine 100 mg Tablet (Vitamin B1 100 mg oral tablet) ??100 mg, By Mouth, Daily Trazodone 50 mg Tablet (traZODone 50 mg oral tablet) ??50 mg, By Mouth, Daily at bedtime CONTINUOUS: (0) PRN: (8) Acetaminophen 325 mg Tablet (Acetaminophen Tablet) ??650 [...] COUNT & DIFF WBC 4.0 k/mm3 ()?? 11/26/2023 08:06 RBC 4.38 m/mm3 (Low)?? 11/26/2023 08:06 Hgb 13.4 Gm/dL (Low)?? 11/26/2023 08:06 Hct 41.2 % ()?? 11/26/2023 08:06 MCV 94.1 femtoliters (High)?? 11/26/2023 08:06 MCH 30.6 pg ()?? 11/26/2023 08:06 MCHC 32.5 g/dL (Low)?? 11/26/2023 08:06 Platelet Count 188 k/mm3 ()?? 11/26/2023 08:06 RDW-SD 47.3 femtoliters (High)?? 11/26/2023 08:06 MPV 10.7 femtoliters ()?? 11/26/2023 08:06 Nucleated RBC (Automated) 0.0 #/100 WBC'S ()?? 11/26/2023 08:06 Abs. NRBC 0.0 k/mm3 ()?? 11/26/2023 08:06 Abs. Neut 4.9 k/mm3 ()?? 11/25/2023 16:33 Abs. Lymph 2.5 k/mm3 ()?? 11/25/2023 16:33 Abs. [place] 0.7 k/mm3 ()?? 11/25/2023 16:33 Abs. Eo 0.1 k/mm3 ()?? 11/25/2023 16:33 Abs. Baso 0.0 k/mm3 ()?? 11/25/2023 16:33 Neut % 59.4 % ()?? 11/25/2023 16:33 Lymph % 30.7 % ()?? 11/25/2023 16:33 [place] % 8.4 % ()?? 11/25/2023 16:33 Eos % 0.9 % ()?? 11/25/2023 16:33 Baso % 0.4 % ()?? 11/25/2023 16:33 Imm Gran 0.2 % ()?? 11/25/2023 16:33 Abs. Imm Gran 0.0 k/mm3 ()?? 11/25/2023 16:33 ?? CHEM GENERAL Sodium 139 mmol/L ()?? 11/26/2023 08:06 Potassium HEMOLYZED mmol/L ()?? 11/26/2023 08:06 Chloride 105 mmol/L ()?? 11/26/2023 08:06 Bicarbonate Level 23 mmol/L ()?? 11/26/2023 08:06 Anion Gap 11 ()?? 11/26/2023 08:06 Glucose Level 86 mg/dL ()?? 11/26/2023 08:06 Glucose, POC 84 mg/dL ()?? 11/25/2023 14:52 BUN 19 mg/dL ()?? 11/26/2023 08:06 Creatinine-Blood 0.80 mg/dL ()?? 11/26/2023 08:06 Estimated GFR Creatinine 113 ML/MIN/1.73 M2 ()?? 11/26/2023 08:06 Calcium 8.9 mg/dL ()?? 11/26/2023 08:06 Phosphorus 2.9 mg/dL ()?? 11/26/2023 08:06 Magnesium 2.2 mg/dL ()?? 11/26/2023 08:06 Protein, Total 7.1 Gm/dL ()?? 11/26/2023 08:06 Albumin 3.7 Gm/dL ()?? 11/26/2023 08:06 AG Ratio 1.1 ()?? 11/26/2023 08:06 Alkaline Phosphatase 101 units/L ()?? 11/26/2023 08:06 AST (SGOT) 25 units/L ()?? 11/26/2023 08:06 ALT (SGPT) 12 units/L ()?? 11/26/2023 08:06 Bilirubin, Total 0.4 mg/dL ()?? 11/26/2023 08:06 ?? ENDOCRINE/TUMOR MARKER TSH 1.64 uIU/mL ()?? 11/25/2023 15:01 ?? TOXICOLOGY/TDM Ethanol, Serum or Plasma NONE DETECTED mg/dL ()?? 11/25/2023 15:45 Dilantin Level 18.3 mg/L ()?? 11/25/2023 15:01 Valproic Level <2.8 mg/L (Low)?? 11/25/2023 15:45 Barbiturate Screen, Urine NONE DETECTED ()?? 11/25/2023 16:39 Cannabinoid Screen, Urine NONE DETECTED ()?? 11/25/2023 16:39 Cocaine Metabolite Screen, Urine NONE DETECTED ()?? 11/25/2023 16:39 Benzodiazepine Screen, Urine POSITIVE (Abnormal)?? 11/25/2023 16:39 Amphetamine Screen, Urine NONE DETECTED ()?? 11/25/2023 16:39 Opiate Screen, Urine NONE DETECTED ()?? 11/25/2023 16:39 Levetiracetam Level <2 mg/L ()?? 11/25/2023 15:45 ?? UA/URINALYSIS Appear/Color, Urine LIGHT YELLOW ()?? 11/25/2023 16:39 Specific [place], Urine 1.047 (High)?? 11/25/2023 16:39 pH, Urine 6.5 ()?? 11/25/2023 16:39 Albumin, Urine NEGATIVE ()?? 11/25/2023 16:39 Glucose, Urine NEGATIVE ()?? 11/25/2023 16:39 Ketones, Urine NEGATIVE ()?? 11/25/2023 16:39 Bilirubin, Urine NEGATIVE ()?? 11/25/2023 16:39 Hemoglobin, Urine NEGATIVE ()?? 11/25/2023 16:39 Nitrite, Urine NEGATIVE ()?? 11/25/2023 16:39 Leukocyte, Urine NEGATIVE ()?? 11/25/2023 16:39 Urobilinogen NORMAL mg/dL ()?? 11/25/2023 16:39 WBC's, Urine NONE SEEN /HPF ()?? 11/25/2023 16:39 RBC's, Urine 2 /HPF ()?? 11/25/2023 16:39 Mucus SLIGHT /LPF ()?? 11/25/2023 16:39 ?? URINE OTHER Est Creatinine Clearance 127.59 mL/min ()?? 11/26/2023 11:56 ?? VIROLOGY COVID-19 by RT-PCR NEGATIVE ()?? 11/25/2023 16:00 ? Assessment/Plan Diagnoses Alcohol dependence ??(F10.20) Bipolar disorder ??(F31.9) COPD without exacerbation ??(J44.9) Depression ??(F32.A) High anion gap metabolic acidosis ??(E87.29) Seizure ??(R56.9) ? 43 y/o man with PMH of alcohol and substance??use d/o (reports 3 drinks per??day, former use of cocaine and ecstasy), obesity, Juvenile myoclonic epilepsy, generalized seizures, refractory,?presenting for eval of breakthrough seizures for the second time this week. Two witnessed seizure at home,then 1 in ED with one dose of IM ativan given. Can have aggression postictal?? times, this time with?RLE and LUE weakness x 10 min,?? so AST was activated. CTH nonacute, CTA h/n no LVO or high grade stenosis. NIHSS 0. Pt back to his baseline without any weakness, visual deficits, speech changes, or??paresthesias after imaging. Some ild tremor noted, no diaphoresis, mild asterixis of BUE,??BP 155/70, HR 71, 14, 100%, POC 84. Last drink 11/18. Pt denies any recent illness, fever, or change in functionality other than seizures going from a couple per month to several per week and in clusters now.??On clobazam to 5 mg am/ 10 mg pm, ??lamotrigine 300 mg BID and phenytoin 200 mg am/ 300 mg pm.??Lamotrigine level low compared to previous since starting??on phenytoin. Likely due to interaction.Pt is at basleine functional status. ? DDX: Breakthrough seizure: hx of JENNI: generalized epilepsy with recent adjustments to multiple seizure meds, subtherapeutic Lamotrigine likely due to med intercation with phenytoin +/- etoh withdrawal.? Recommendations: ok to d/c on home meds with increased clobazem to 10mg BID from 5am/10pm. ordered clobazem and lamictal levels ?? will sign off f/u with neurolgoy dr amador ? Case reviewed with Dr. Winters and DR. Cruz * Jovana AVILA, Marcelle: PERFORM, MODIFY Event Display: Progress Note Hospital Authored Date: Patient: ??RAND WILKERSON ? Age:??43 Years?Sex:??Male?:??1980?? Subjective Patient seen and examined Denies any chest pain shortness of breath nausea vomiting No further episodes of seizures today Review of Systems All systems were reviewed and are negative unless mentioned Allergies Allergies ?(Active and Proposed Allergies Only) erythromycin? (Severity: Unknown severity, Onset: Unknown) ?Reactions: rash ? Objective ? Vital Signs?? Temperature: 98.1 DegF (11/26/23 08:30:00) Temperature Route: Oral (11/26/23 08:30:00) Pulse Rate: 57 bpm (11/26/23 08:30:00) Respiratory Rate: 17 br/min (11/26/23 08:30:00) Systolic Blood Pressure: 130 mm Hg (11/26/23 08:30:00) Diastolic Blood Pressure: 61 mm Hg (11/26/23 08:30:00) Blood pressure sites: Arm, right (11/26/23 08:30:00) Mean Arterial Pressure: 99 mm Hg (11/26/23 05:36:00) Pulse Pressure: 69 mm Hg (11/26/23 08:30:00) Oxygen Saturation: 100 % (11/26/23 08:30:00) Mode of Delivery (Oxygen): Room air (11/26/23 08:30:00) Early Warning Score: 0 (11/26/23 09:59:52) ? Intake/Output? No Data Available ? Physical Exam Gen- not in acute distress,comfortably lying on bed HEENT- Normocephalic, Atraumatic, No pallor, icterus Neck-supple, no JVD Heart-S1S2(+),??regular, no murmurs. lungs- Clear, b/l air entry, no wheezing. Abdomen-soft, nontender,nondistended,??bowel sounds present, No guarding. Extremities-pulses palpable. No pedal edema. No calf tenderness. Neurological- AAO??3. No gross focal neurological deficits noted. Psychiatric-patient???s mood is stable _ Home Medications Albuterol/Ipratropium (Combivent Respimat 20 mcg-100 [...] ? Inpatient Medications Medications (21) Active SCHEDULED: (13) Clobazam 10 mg Tablet (clobazam 10 mg oral tablet) ??10 mg, By Mouth, Every 12 hours Clonazepam 0.5 mg Tablet (clonazePAM 0.5 mg [...] ??300 mg, By Mouth, Daily at bedtime Phenytoin 100 mg ER Capsule (Dilantin Capsule) ??200 mg, By Mouth, Daily in AM Sertraline 50 mg Tablet (sertraline 50 mg oral tablet) ??100 mg, By Mouth, Daily Thiamine 100 mg Tablet (Vitamin B1 100 mg oral tablet) ??100 mg, By Mouth, Daily Trazodone 50 mg Tablet (traZODone 50 mg oral tablet) ??50 mg, By Mouth, Daily at bedtime CONTINUOUS: (0) PRN: (8) Acetaminophen 325 mg Tablet (Acetaminophen Tablet) ??650 [...] COUNT & DIFF WBC 4.0 k/mm3 ()?? 11/26/2023 08:06 RBC 4.38 m/mm3 (Low)?? 11/26/2023 08:06 Hgb 13.4 Gm/dL (Low)?? 11/26/2023 08:06 Hct 41.2 % ()?? 11/26/2023 08:06 MCV 94.1 femtoliters (High)?? 11/26/2023 08:06 MCH 30.6 pg ()?? 11/26/2023 08:06 MCHC 32.5 g/dL (Low)?? 11/26/2023 08:06 Platelet Count 188 k/mm3 ()?? 11/26/2023 08:06 RDW-SD 47.3 femtoliters (High)?? 11/26/2023 08:06 MPV 10.7 femtoliters ()?? 11/26/2023 08:06 Nucleated RBC (Automated) 0.0 #/100 WBC'S ()?? 11/26/2023 08:06 Abs. NRBC 0.0 k/mm3 ()?? 11/26/2023 08:06 Abs. Neut 4.9 k/mm3 ()?? 11/25/2023 16:33 Abs. Lymph 2.5 k/mm3 ()?? 11/25/2023 16:33 Abs. [place] 0.7 k/mm3 ()?? 11/25/2023 16:33 Abs. Eo 0.1 k/mm3 ()?? 11/25/2023 16:33 Abs. Baso 0.0 k/mm3 ()?? 11/25/2023 16:33 Neut % 59.4 % ()?? 11/25/2023 16:33 Lymph % 30.7 % ()?? 11/25/2023 16:33 [place] % 8.4 % ()?? 11/25/2023 16:33 Eos % 0.9 % ()?? 11/25/2023 16:33 Baso % 0.4 % ()?? 11/25/2023 16:33 Imm Gran 0.2 % ()?? 11/25/2023 16:33 Abs. Imm Gran 0.0 k/mm3 ()?? 11/25/2023 16:33 ?? CHEM GENERAL Sodium 139 mmol/L ()?? 11/26/2023 08:06 Potassium HEMOLYZED mmol/L ()?? 11/26/2023 08:06 Chloride 105 mmol/L ()?? 11/26/2023 08:06 Bicarbonate Level 23 mmol/L ()?? 11/26/2023 08:06 Anion Gap 11 ()?? 11/26/2023 08:06 Glucose Level 86 mg/dL ()?? 11/26/2023 08:06 Glucose, POC 84 mg/dL ()?? 11/25/2023 14:52 BUN 19 mg/dL ()?? 11/26/2023 08:06 Creatinine-Blood 0.80 mg/dL ()?? 11/26/2023 08:06 Estimated GFR Creatinine 113 ML/MIN/1.73 M2 ()?? 11/26/2023 08:06 Calcium 8.9 mg/dL ()?? 11/26/2023 08:06 Phosphorus 2.9 mg/dL ()?? 11/26/2023 08:06 Magnesium 2.2 mg/dL ()?? 11/26/2023 08:06 Protein, Total 7.1 Gm/dL ()?? 11/26/2023 08:06 Albumin 3.7 Gm/dL ()?? 11/26/2023 08:06 AG Ratio 1.1 ()?? 11/26/2023 08:06 Alkaline Phosphatase 101 units/L ()?? 11/26/2023 08:06 AST (SGOT) 25 units/L ()?? 11/26/2023 08:06 ALT (SGPT) 12 units/L ()?? 11/26/2023 08:06 Bilirubin, Total 0.4 mg/dL ()?? 11/26/2023 08:06 ?? ENDOCRINE/TUMOR MARKER TSH 1.64 uIU/mL ()?? 11/25/2023 15:01 ?? TOXICOLOGY/TDM Ethanol, Serum or Plasma NONE DETECTED mg/dL ()?? 11/25/2023 15:45 Dilantin Level 18.3 mg/L ()?? 11/25/2023 15:01 Valproic Level <2.8 mg/L (Low)?? 11/25/2023 15:45 Barbiturate Screen, Urine NONE DETECTED ()?? 11/25/2023 16:39 Cannabinoid Screen, Urine NONE DETECTED ()?? 11/25/2023 16:39 Cocaine Metabolite Screen, Urine NONE DETECTED ()?? 11/25/2023 16:39 Benzodiazepine Screen, Urine POSITIVE (Abnormal)?? 11/25/2023 16:39 Amphetamine Screen, Urine NONE DETECTED ()?? 11/25/2023 16:39 Opiate Screen, Urine NONE DETECTED ()?? 11/25/2023 16:39 Levetiracetam Level <2 mg/L ()?? 11/25/2023 15:45 ?? UA/URINALYSIS Appear/Color, Urine LIGHT YELLOW ()?? 11/25/2023 16:39 Specific [place], Urine 1.047 (High)?? 11/25/2023 16:39 pH, Urine 6.5 ()?? 11/25/2023 16:39 Albumin, Urine NEGATIVE ()?? 11/25/2023 16:39 Glucose, Urine NEGATIVE ()?? 11/25/2023 16:39 Ketones, Urine NEGATIVE ()?? 11/25/2023 16:39 Bilirubin, Urine NEGATIVE ()?? 11/25/2023 16:39 Hemoglobin, Urine NEGATIVE ()?? 11/25/2023 16:39 Nitrite, Urine NEGATIVE ()?? 11/25/2023 16:39 Leukocyte, Urine NEGATIVE ()?? 11/25/2023 16:39 Urobilinogen NORMAL mg/dL ()?? 11/25/2023 16:39 WBC's, Urine NONE SEEN /HPF ()?? 11/25/2023 16:39 RBC's, Urine 2 /HPF ()?? 11/25/2023 16:39 Mucus SLIGHT /LPF ()?? 11/25/2023 16:39 ?? VIROLOGY COVID-19 by RT-PCR NEGATIVE ()?? 11/25/2023 16:00 ? Urinalysis Albumin, Urine: NEGATIVE (16:39) Appear/Color, Urine: LIGHT YELLOW (16:39) Bilirubin, Urine: NEGATIVE (16:39) Glucose, Urine: NEGATIVE (16:39) Hemoglobin, Urine: NEGATIVE (16:39) Hold Urine: Testing Available 24 hours from Time of Collection (16:39) Hold Urine Culture: Testing available 48 hours from time of collection. (16:39) Hold Urine Culture: Testing available 48 hours from time of collection. (16:39) Ketones, Urine: NEGATIVE (16:39) Leukocyte, Urine: NEGATIVE (16:39) Mucus: SLIGHT (16:39) Nitrite, Urine: NEGATIVE (16:39) pH, Urine: 6.5 (16:39) RBC's, Urine: 2 /HPF (16:39) Specific [place], Urine:??1.047??High (16:39) Urobilinogen: NORMAL (16:39) WBC's, Urine: NONE SEEN (16:39) ? Assessment/Plan 44-year-old male??with past medical history of tonic-clonic epilepsy on multiple AEDs??admitted to the hospital for breakthrough seizure.?? Second admission in November. ?? Bipolar disorder (F31.9) ?Grouped with??Depression (F32.A) ? No suicidal ideation or thoughts Continue home medication olanzapine, sertraline, trazodone ?? Alcohol dependence (F10.20):??no??signs of??alcohol withdrawal??at the??moment, but s/p??ativan. CIWA??score of 0 now,??has not been drinking since the last??admission ?? plan:?? - CIWA protocol with Ativan,??although low suspicion but neuro recommended - continue multivitamin, Thiamine, Folic acid ?? COPD without exacerbation (J44.9):??no signs of COPD exacerbation, will monitor ?? High anion gap metabolic acidosis (E87.29):??Likely 2/2 seizure, status post IV fluid. ??Anion gap normalized ?? Seizure (R56.9):??Patient with recurrent seizures,??neurology has seen the patient??recommended increasing clobazam??to??10 mg twice daily??and admission to medicine team.?No concern for infectiongiven??negative UA,??chest x-ray negative plan:?? -In case of seizure Ativan 4 mg IVP ordered??if??lasts more than 3 minutes, or recurrent seizures without return to baseline - Clobazam 10 mg twice daily - Continue lamotrigine??300 mg twice daily - Continue phenytoin 200 mg??every morning/300 mg every afternoon - appreciate neurology follow up?? - seizure precautions - Every 4 hours neuro-checks - U tox positive for??benzodiazepine -Follow-up ammonia level Dilantin level 18, valproic acid level??less than 2.8 Follow-up clonazepam, lamotrigine level -Follow-up neurorecommendation ?? VTE Prophylaxis:??Lovenox ?VTE Prophylaxis Assessment:??VTE Prophylaxis Ordered ?? Discharge Planning:??pending clinical course - home w/o services? Ongoing Medical Necessity:??Breaktrough seizure? Code Status:??FULL code ?Order Code Status:??Code Status Ordered ? Estimated Discharge Date ? Diagnoses Alcohol dependence ??(F10.20) Bipolar disorder ??(F31.9) COPD without exacerbation ??(J44.9) Depression ??(F32.A) High anion gap metabolic acidosis ??(E87.29) Seizure ??(R56.9) ?? Discharge Planning:? Estimated Discharge Date 11/27/2023 ?? Consult note * Jocelyne NUÑEZ, Rosendo Waters: PERFORM, MODIFY Event Display: Consultation Note Authored Date: [id number] Patient: ??SONIARAND ? Age:??43 Years?Sex:??Male?:??1980?? Chief Complaint/Reason for Consult Seizure 2 w/ known hx History of Present Illness 43 y/o man with PMH of alcohol and substance??use d/o (reports 3 drinks per instance, former use ofcocaine and ecstasy), obesity, Juvenile myoclonic epilepsy, generalized seizures, refractory,?presenting for eval of breakthrough seizures for the second time this week. Two witnessed seizure at ho me, then 1 in ED with one dose of IM ativan given. Can have aggression postictal?? times, this timewith?RLE and LUE weakness x 10 min,?? so AST was activated. CTH nonacute, CTA h/n no LVO or highgrade stenosis. NIHSS 0. Pt back to his baseline without any weakness, visual deficits, speech changes, or??paresthesias after imaging. Some ild tremor noted, no diaphoresis, mild asterixis of BUE,??BP 155/70, HR 71, 14, 100%, POC 84. Last drink 11/18. Pt denies any recent illness, fever, or change in functionality other than seizures going from a couple per month to several per week and in clusters now.? Was followed by Dr. Ballard, but says he retired, some concern over missed appointments and beingdischarged from practice, planning to try to get back in with [facility] Neuro.? Per chart review and recent Neuro consult:?? On 08/29/23 he was seen by [facility] neurology consult service with plan to continue the following ASD regimen: levetiracetam 2 g twice daily,??lamotrigine 300 twice daily,?? valproic acid 250 twice daily,?? clonazepam 1 mg nightly and 0.5 every morning. At some point after this, he was started on phenytoin 200 mg BID. Mr. Gonzalez reports that after this, in the last few weeks, he was seen at [facility]?? Dr. Ballard recommended changes to the antiseizure drug list, so he has been on the following med regimen: phenytoin 200 mg am/ 300 mg pm, lamotrigine 300 mg BID, clobazam 5 mg BID. He recalls that he was on levetiracetam for 20 yrs before this was recently stopped. Also used to take topiramate. Regarding his prior sz workup: sz onset at 6 mo old, was sz free from age 5 to 15, with recurrent seizures since.?? Previous records reflect that he has h/o of generalized seizure d/o, a EEG has shown frontal spike and generalized wave and polyspike and wave. MEDS:?? Has been taken off VPA and Keppra, continued on lamotrigine 300 mg BID and clonazepam 1mg qhs and 0.5 mg qd in August and started on phenytoin at some point this summer.??then started on clobazam 5mg BID.??Has previously als o tried topiramate. It??is uncear why these changes were made.?? ON 11/19 his ??clobazam was increased to 5 mg am/ 10 mg pm and he was kept on the same?? [id number] mg BID and phenytoin 200 mg am/ 300 mg pm?? He is additionally on??clonazepam, Seroquel,??olanzapine, and hydroxyzine.?? Levels:?? Lamotrigine level from 11/19 back at??2.9 Phenytoin level was 20.5 and now 18.3: known interaction of both meds together can cause?loweredlamotrigine levels.? Review of Systems ?? Pt endorses the following symptoms: a little shaky.?? Patient denies the following: General: ??chills, weight loss, fatigue HEENT: hearing loss, eye pain Cardiac: chest pain, palpitations, syncope, presyncope, edema Pulmonary: dyspnea, wheezing Gastrointestinal: abdominal pain, diarrhea, nausea, vomiting, bowel incontinence Genitourinary: urinary incontinence, urinary retention, hesitancy Dermatological: rash Hematological: bruising Neurological: paresthesias, headache, diplopia, visual field loss, aphasia, facial droop, ??gait imbalance, incoordination, vertigo or lightheadedness, memory loss ? Physical Exam Vitals & Measurements T:??98.2?F?? HR:??60??(Peripheral)?? RR:??18?? BP:??139/70?? SpO2:??98%?? Gen: No acute distress, awake, alert?? HEENT: normocephalic, atraumatic. No ptosis. Nares patent. Oropharynx without lesions. No teeth. Psych: not depressed or anxious?? CV::?? rhythm regular, 3+radial pulses, NSR Pulm:: normal I:E, no dyspnea GI/: non-distended, soft, no guarding Derm: no rashes or edema Neuro: Mental status: Oriented x 4 Speech is fluent, appropriate with no slurring or aphasia. Repeats 'No ifs, ands, or buts . Names well. Follows simple and complex commands.?? Cranial Nerves: PERRL 5mm brisk , EOMI without nystagmus, VFF. Face appears symmetric with no drooping or weakness. Facial sensation intact. Hearing intact to finger rub bilaterally.??Tongue and uvula midline. Palate symmetric movements. Shoulder shrug symmetric bilaterally. Motor: strength??5/5 BUE/BLE . No pronator drift. Normal bulk and tone. Asterixis BUE, mild fine tremor bilateral arms. Coordination: No ataxia or dysmetria noted with finger to nose.?? Sensation: Intact light touch sensation bilaterally. No extinction to double simultaneous stimulation. ?? Assessment/Plan 43 y/o man with PMH of alcohol and substance??use d/o (reports 3 drinks per??day, former use of cocaine and ecstasy), obesity, Juvenile myoclonic epilepsy, generalized seizures, refractory,?presenting for eval of breakthrough seizures for the second time this week. Two witnessed seizure at home,then 1 in ED with one dose of IM ativan given. Can have aggression postictal?? times, this time with?RLE and LUE weakness x 10 min,?? so AST was activated. CTH nonacute, CTA h/n no LVO or high grade stenosis. NIHSS 0. Pt back to his baseline without any weakness, visual deficits, speech changes, or??paresthesias after imaging. Some ild tremor noted, no diaphoresis, mild asterixis of BUE,??BP 155/70, HR 71, 14, 100%, POC 84. Last drink 11/18. Pt denies any recent illness, fever, or change in functionality other than seizures going from a couple per month to several per week and in clusters now.??On clobazam to 5 mg am/ 10 mg pm, ??lamotrigine 300 mg BID and phenytoin 200 mg am/ 300 mg pm.??Lamotrigine level low compared to previous since starting??on phenytoin. Likely due to interaction.Pt is at basleine functional status. ? DDX: Breakthrough seizure: hx of JENNI: generalized epilepsy with recent adjustments to multiple seizure meds, subtherapeutic Lamotrigine likely due to med intercation with phenytoin +/- etoh withdrawal.? Recommendations: - admit to medicine - q 4 hr neuro checks - seizure precautions - check tox screen, ammonia level, lamotrigine level, clobazam level. - high risk for etoh w/d given baseline refractory epilepsy and subtherapeutic lamotrigine. - CIWA monitoring - we will titrate his AEDs while he is inpt. - increase Clobazam to 10 mg po BID, start today - continue lamotrigine 300mg bid - continue ??phenytoin 200 mg q am/ 300 mg q ??pm. - we will titrate his AEDs while he is inpt.?? - for seizure > 3 min, compromised airway or ??recurrent seizure without return to baseline, give 4mg Ativan IVP STAT. ?? - For persistent status, rather than a load of Antiepileptic agent, would favor second dose of 4mg Ativan IV while prepping RSI??and sedation with Propofol at 50mcg/kg/hr, hook to vEEG and TX to ICU. - rule out other ??infectious/metabolic triggers ?? Thank you for the consult. We will follow.? Case reviewed with Dr. Winters and DR. Cruz Recommendations given to ??Joseluis ?? Problem List/Past Medical History Ongoing COPD without exacerbation COVID Obese class I Obesity Polysubstance abuse Procedure/Surgical History No qualifying data available. Home Medications Albuterol/Ipratropium: 1 puffs, Inhalation, 4 times a day Clobazam: 5 mg, By Mouth, Daily in AM Clobazam: 10 mg, By Mouth, Daily at bedtime Clonazepam: 0.5 mg = 1 tablet, By Mouth, Daily in AM Clonazepam: 1 mg = 1 tablet, By Mouth, Daily at bedtime, While in hosp Folic Acid: 1 mg = 1 tablet, [...] No. Family History No family history recorded. Radiology (11/25/2023 15:[address] Angio Head Hyperacute Stroke) ? No proximal occlusion or high grade stenosis in the major arteries of the head and neck. [1] Lab Results Test Name Test Result Date/Time WBC 6.3 k/mm3 11/21/2023 08:24 EDT RBC 4.29 m/mm3 11/21/2023 08:24 EDT Hgb 13.2 Gm/dL 11/21/2023 08:24 EDT Hct 39.4 % 11/21/2023 08:24 EDT MCV 91.8 femtoliters 11/21/2023 08:24 EDT MCH 30.8 pg 11/21/2023 08:24 EDT MCHC 33.5 g/dL 11/21/2023 08:24 EDT Platelet Count 177 k/mm3 11/21/2023 08:24 EDT RDW-SD 47.0 femtoliters 11/21/2023 08:24 EDT MPV 10.5 femtoliters 11/21/2023 08:24 EDT Nucleated RBC (Automated) 0.0 #/100 WBC'S 11/21/2023 08:24 EDT Abs. NRBC 0.0 k/mm3 11/21/2023 08:24 EDT Hold Blue Top SPECIMEN DISCARDED AFTER 4 HOURS. 11/25/2023 15:00 EDT Sodium 138 mmol/L 11/25/2023 15:01 EDT Sodium 137 mmol/L 11/21/2023 08:24 EDT Potassium 3.6 mmol/L 11/25/2023 15:01 EDT Potassium 4.2 mmol/L 11/21/2023 08:24 EDT Chloride 96 mmol/L 11/25/2023 15:01 EDT Chloride 103 mmol/L 11/21/2023 08:24 EDT Bicarbonate Level 16 mmol/L 11/25/2023 15:01 EDT Bicarbonate Level 23 mmol/L 11/21/2023 08:24 EDT Anion Gap 26 11/25/2023 15:01 EDT Anion Gap 11 11/21/2023 08:24 EDT Glucose Level 112 mg/dL 11/25/2023 15:01 EDT Glucose Level 164 mg/dL 11/21/2023 08:24 EDT Glucose, POC 84 mg/dL 11/25/2023 14:52 EDT BUN 23 mg/dL 11/25/2023 15:01 EDT BUN 16 mg/dL 11/21/2023 08:24 EDT Creatinine-Blood 0.80 mg/dL 11/25/2023 15:01 EDT Creatinine-Blood 0.71 mg/dL 11/21/2023 08:24 EDT Estimated GFR Creatinine 113 ML/MIN/1.73 M2 11/25/2023 15:01 EDT Estimated GFR Creatinine 117 ML/MIN/1.73 M2 11/21/2023 08:24 EDT Calcium 9.7 mg/dL 11/25/2023 15:01 EDT Calcium 9.0 mg/dL 11/21/2023 08:24 EDT Magnesium 2.0 mg/dL 11/25/2023 15:01 EDT Protein, Total 8.0 Gm/dL 11/25/2023 15:01 EDT Albumin 4.5 Gm/dL 11/25/2023 15:01 EDT AG Ratio 1.3 11/25/2023 15:01 EDT Alkaline Phosphatase 118 units/L 11/25/2023 15:01 EDT AST (SGOT) 22 units/L 11/25/2023 15:01 EDT ALT (SGPT) 14 units/L 11/25/2023 15:01 EDT Bilirubin, Total 0.4 mg/dL 11/25/2023 15:01 EDT TSH 1.64 uIU/mL 11/25/2023 15:01 EDT Dilantin Level 18.3 mg/L 11/25/2023 15:01 EDT Hold Gel Top SPECIMEN DISCARDED AFTER 1 WEEK 11/21/2023 08:24 EDT Est Creatinine Clearance 143.76 mL/min 11/21/2023 09:08 EDT [1]??CT Angio Head Hyperacute Stroke; Celeste Wing 11/25/2023 15:53 EDT * Misael Cruz MD: PERFORM Event Display: Consultation Note Authored Date: [id number] Attending PA/CROP DUSTER Attestation:??I have reviewed the patient's medical history, findings on examination, diagnosis and treatment plan as documented in the PA/CROP DUSTER note. Case and its management discussed with PA/CROP DUSTER. Note * Danna Brunson RN: PERFORM Event Display: Discharge/Transfer Note Hospital Authored Date: Nursing Discharge Note Entered On: 11/26/2023 17:10 EDT Performed On: 11/26/2023 17:00 EDT by Danna Brunson RN Nursing Discharge Note 2 Discharge Time : 11/26/2023 17:00 EDT Discharge Level of Care at Discharge : Home/[facility] Care Patient Left Unit Via : Wheelchair Patient Accompanied Off Unit with : Responsible adult DC Instructions Provided & Signed by Pt : Yes Patient Understands D/C Instructions : Yes Patient Instructions Discharge Signed : Yes Did Pt have Specialty Bed or Wound Vac : No Danna Brunson RN - 11/26/2023 17:10 EDT * Marcelle Whaley MD: PERFORM Event Display: Discharge/Transfer Note Hospital Authored Date: Patient: ??RAND WILKERSON ? Age:??43 Years?Sex:??Male?:??1980?? Patient Information Discharge Location: W4 Primary Care Physician: Not on Staff, PCP Admit Date/Time: 11/25/23 18:31 Discharge Disposition Discharge Disposition: Home: No Services Discharge Diagnosis Seizure (R56.9) High anion gap metabolic acidosis (E87.29) COPD without exacerbation (J44.9) Alcohol dependence (F10.20) Bipolar disorder (F31.9) Depression (F32.A) _ Discharge Medications Albuterol/Ipratropium (Combivent Respimat 20 [...] Quality Measures Tobacco Use Treatment:? Medications Started None Medications Discontinued None Doses Changed Clobazam Allergies Allergies ?(Active and Proposed Allergies Only) erythromycin? (Severity: Unknown severity, Onset: Unknown) ?Reactions: rash ? PCP Follow-Up/Heads-Up Needs CBC BMP in 7 days Future Appointments Wednesday 1:30 PM EDT ?? With: Winston NUÑEZ, Marli George Where: [facility] [address] [facility] 3[address] Floor, [address] [place] [id number]- Status: Pending Hospital Course ??44-year-old male??with past medical history of tonic-clonic epilepsy on multiple AEDs??admitted to the hospital for breakthrough seizure.?? Second admission in November. ?? Bipolar disorder (F31.9) ?Grouped with??Depression (F32.A) ? No suicidal ideation or thoughts Continue home medication olanzapine, sertraline, trazodone ?? Alcohol dependence (F10.20):??no??signs of??alcohol withdrawal??at the??moment, but s/p??ativan. CIWA??score of 0 now,??has not been drinking since the last??admission ?? - continue multivitamin, Thiamine, Folic acid ?? COPD without exacerbation (J44.9):??no signs of COPD exacerbation ?? High anion gap metabolic acidosis (E87.29):??Likely 2/2 seizure, status post IV fluid. ??Anion gap normalized ?? Seizure (R56.9):??Patient with recurrent seizures,??neurology has seen the patient??recommended increasing clobazam??to??10 mg twice daily??and admission to medicine team.?No concern for infectiongiven??negative UA,??chest x-ray negative plan:?? Seen by neurology, recommended increasing clobazam??to 10 mg twice daily - Continue lamotrigine??300 mg twice daily - Continue phenytoin 200 mg??every morning/300 mg every afternoon -Neurology cleared patient for?discharge ?? VTE Prophylaxis:??Lovenox ?VTE Prophylaxis Assessment:??VTE Prophylaxis Ordered ?? Discharge to home today ?? Code Status:??FULL code ?Order Code Status:??Code Status Ordered ?? Objective Assessment and Plan Discharge Planning:? Measurements?? Height: 180 cm (11/26/23) Weight: 118 kg (11/26/23) Dry Weight: 118 kg (11/26/23) Body Mass Index:??36.42 kg/m2??Critical (11/26/23) ? Vital Signs?? Temperature: 97.2 DegF (11/26/23 14:57:00) Temperature Route: Oral (11/26/23 14:57:00) Pulse Rate: 66 bpm (11/26/23 14:57:00) Respiratory Rate: 20 br/min (11/26/23 14:57:00) Systolic Blood Pressure: 121 mm Hg (11/26/23 14:57:00) Diastolic Blood Pressure: 66 mm Hg (11/26/23 14:57:00) Blood pressure sites: Arm, right (11/26/23 14:57:00) Mean Arterial Pressure: 84 mm Hg (11/26/23 14:57:00) Pulse Pressure: 55 mm Hg (11/26/23 14:57:00) Oxygen Saturation: 99 % (11/26/23 14:57:00) Mode of Delivery (Oxygen): Room air (11/26/23 14:57:00) Early Warning Score: 2 (11/26/23 14:58:26) ? Intake/Output? No Data Available ?? . Physical Exam Gen- not in acute distress,comfortably lying on bed HEENT- Normocephalic, Atraumatic, No pallor, icterus Neck-supple, no JVD Heart-S1S2(+),??regular, no murmurs. lungs- Clear, b/l air entry, no wheezing. Abdomen-soft, nontender,nondistended,??bowel sounds present, No guarding. Extremities-pulses palpable. No pedal edema. No calf tenderness. Neurological- AAO??3. No gross focal neurological deficits noted. Psychiatric-patient???s mood is stable Consultants neuro Pending Results Add On Lab Order ordered on 11/25/2023 Add On Lab Order ordered on 11/25/2023 Basic Metabolic Panel ordered on 11/25/2023 Clobazam Level ordered on 11/26/2023 Lamotrigine Level ordered on 11/26/2023 Follow-Up Appointments Added Follow Up ?Time Frame ?Comments Not on Staff, PCP Patient Instructions You are admitted for seizures Increase the dose of clobazam??to 10 mg in the morning??and 10 at bedtime ??continue other medications Please follow-up with neurology??in 2 to 3 weeks Please follow with your PCP in 7 days to check CBC, BMP Home Health Face to Face ^HomeHealthFTF Results Discharge Labs BLOOD COUNT & DIFF WBC 4.0 k/mm3 ()?? 11/26/2023 08:06 RBC 4.38 m/mm3 (Low)?? 11/26/2023 08:06 Hgb 13.4 Gm/dL (Low)?? 11/26/2023 08:06 Hct 41.2 % ()?? 11/26/2023 08:06 MCV 94.1 femtoliters (High)?? 11/26/2023 08:06 MCH 30.6 pg ()?? 11/26/2023 08:06 MCHC 32.5 g/dL (Low)?? 11/26/2023 08:06 Platelet Count 188 k/mm3 ()?? 11/26/2023 08:06 RDW-SD 47.3 femtoliters (High)?? 11/26/2023 08:06 MPV 10.7 femtoliters ()?? 11/26/2023 08:06 Nucleated RBC (Automated) 0.0 #/100 WBC'S ()?? 11/26/2023 08:06 Abs. NRBC 0.0 k/mm3 ()?? 11/26/2023 08:06 Abs. Neut 4.9 k/mm3 ()?? 11/25/2023 16:33 Abs. Lymph 2.5 k/mm3 ()?? 11/25/2023 16:33 Abs. [place] 0.7 k/mm3 ()?? 11/25/2023 16:33 Abs. Eo 0.1 k/mm3 ()?? 11/25/2023 16:33 Abs. Baso 0.0 k/mm3 ()?? 11/25/2023 16:33 Neut % 59.4 % ()?? 11/25/2023 16:33 Lymph % 30.7 % ()?? 11/25/2023 16:33 [place] % 8.4 % ()?? 11/25/2023 16:33 Eos % 0.9 % ()?? 11/25/2023 16:33 Baso % 0.4 % ()?? 11/25/2023 16:33 Imm Gran 0.2 % ()?? 11/25/2023 16:33 Abs. Imm Gran 0.0 k/mm3 ()?? 11/25/2023 16:33 ?? CHEM GENERAL Sodium 139 mmol/L ()?? 11/26/2023 08:06 Potassium HEMOLYZED mmol/L ()?? 11/26/2023 08:06 Chloride 105 mmol/L ()?? 11/26/2023 08:06 Bicarbonate Level 23 mmol/L ()?? 11/26/2023 08:06 Anion Gap 11 ()?? 11/26/2023 08:06 Glucose Level 86 mg/dL ()?? 11/26/2023 08:06 Glucose, POC 84 mg/dL ()?? 11/25/2023 14:52 BUN 19 mg/dL ()?? 11/26/2023 08:06 Creatinine-Blood 0.80 mg/dL ()?? 11/26/2023 08:06 Estimated GFR Creatinine 113 ML/MIN/1.73 M2 ()?? 11/26/2023 08:06 Calcium 8.9 mg/dL ()?? 11/26/2023 08:06 Phosphorus 2.9 mg/dL ()?? 11/26/2023 08:06 Magnesium 2.2 mg/dL ()?? 11/26/2023 08:06 Protein, Total 7.1 Gm/dL ()?? 11/26/2023 08:06 Albumin 3.7 Gm/dL ()?? 11/26/2023 08:06 AG Ratio 1.1 ()?? 11/26/2023 08:06 Alkaline Phosphatase 101 units/L ()?? 11/26/2023 08:06 AST (SGOT) 25 units/L ()?? 11/26/2023 08:06 ALT (SGPT) 12 units/L ()?? 11/26/2023 08:06 Bilirubin, Total 0.4 mg/dL ()?? 11/26/2023 08:06 ?? ENDOCRINE/TUMOR MARKER TSH 1.64 uIU/mL ()?? 11/25/2023 15:01 ? HEME OTHER Hold Blue Top SPECIMEN DISCARDED AFTER 4 HOURS. ()?? 11/25/2023 15:00 ? MISC. CHEMISTRY Ammonia, Venous 40 ??mole/L ()?? 11/26/2023 13:03 ? TOXICOLOGY/TDM Ethanol, Serum or Plasma NONE DETECTED mg/dL ()?? 11/25/2023 15:45 Dilantin Level 18.3 mg/L ()?? 11/25/2023 15:01 Valproic Level <2.8 mg/L (Low)?? 11/25/2023 15:45 Barbiturate Screen, Urine NONE DETECTED ()?? 11/25/2023 16:39 Cannabinoid Screen, Urine NONE DETECTED ()?? 11/25/2023 16:39 Cocaine Metabolite Screen, Urine NONE DETECTED ()?? 11/25/2023 16:39 Benzodiazepine Screen, Urine POSITIVE (Abnormal)?? 11/25/2023 16:39 Amphetamine Screen, Urine NONE DETECTED ()?? 11/25/2023 16:39 Opiate Screen, Urine NONE DETECTED ()?? 11/25/2023 16:39 Levetiracetam Level <2 mg/L ()?? 11/25/2023 15:45 ?? UA/URINALYSIS Appear/Color, Urine LIGHT YELLOW ()?? 11/25/2023 16:39 Specific [place], Urine 1.047 (High)?? 11/25/2023 16:39 pH, Urine 6.5 ()?? 11/25/2023 16:39 Albumin, Urine NEGATIVE ()?? 11/25/2023 16:39 Glucose, Urine NEGATIVE ()?? 11/25/2023 16:39 Ketones, Urine NEGATIVE ()?? 11/25/2023 16:39 Bilirubin, Urine NEGATIVE ()?? 11/25/2023 16:39 Hemoglobin, Urine NEGATIVE ()?? 11/25/2023 16:39 Nitrite, Urine NEGATIVE ()?? 11/25/2023 16:39 Leukocyte, Urine NEGATIVE ()?? 11/25/2023 16:39 Urobilinogen NORMAL mg/dL ()?? 11/25/2023 16:39 WBC's, Urine NONE SEEN /HPF ()?? 11/25/2023 16:39 RBC's, Urine 2 /HPF ()?? 11/25/2023 16:39 Mucus SLIGHT /LPF ()?? 11/25/2023 16:39 Hold Urine Culture Testing available 48 hours from time of collection. ()?? 11/25/2023 16:39 Hold Urine Testing Available 24 hours from Time of Collection ()?? 11/25/2023 16:39 ?? URINE OTHER Est Creatinine Clearance 127.59 mL/min ()?? 11/26/2023 11:56 ? VIROLOGY COVID-19 by RT-PCR NEGATIVE ()?? 11/25/2023 16:00 ? Microbiology ?? COVID-19 (Novel Coronavirus), Rapid PCR?? Completed?? Source: Nasal Body Site: Nose Collected Dt/Tm: 11/25/2023 15:11 Last Updated Dt/Tm: 11/25/2023 17:24 ? 45_ minutes spent on discharge * Gwen Way LPN: PERFORM Event Display: Patient Education/Instruction Authored Date: [id number] Inpatient Adult Discharge Instructions. [place] [id number] Name: RAND ROCK : 1980?? Visit: 11/25/2023 18:31?? Current Date: 11/26/2023 16:09 ?? Account: [id number]?? Inpatient Adult Discharge Instructions We would like [...] and their families. Surveys are administered by [employer] ?? If further treatment with your primary care physician or another doctor is recommended, it is important for you to keep the appointment. Call your primary care physician or return to the Emergency Department immediately if your condition worsens, fails to improve, or new symptoms develop. If you need to find a doctor, you can call [facility] for a referral at [phone] or toll free at [phone] An [id number] ([phone]) or log in to [email or web address].. ?? [facility], in keeping with [facility] guidance, no longer requires face [...] a health care parvin of your choosing. [facility] is a website that allows you to securely view your medical information including your hospital discharge summary, office visit summaries, medications and follow-up visits. You can also request appointments, renew medications, and request access to your medical information using a health care parvin of your choosing, or just ask a question. You can enroll at [email or web address] or register during your next office visit. You have been discharged from [facility], Patient Care Unit: W4??. If you have any questions regarding these instructions, including results of studies pending, afteryou leave, please call us and we will be happy to assist you 28/09. [facility] Your Care Team Attending Physician Marcelle Whaley MD?? Consulting Providers Marcelle Whaley MD?? Discharging Providers Marcelle Whaley MD Reason for Your Visit Seizure 2 w/ known hx?? Your Diagnosis Alcohol dependence Bipolar disorder COPD without exacerbation Depression High anion gap metabolic acidosis Tests Performed Below is a partial list of the tests performed during your hospitalization. You may have had other tests and procedures not included in this list. Please discuss all test results with your provider. Ammonia Venous Amphetamine Urine Screen Barbiturate Urine Screen Benzodiazepine Urine Screen Cannabinoid Urine Screen CBC CBC w/ Differential Cocaine Urine Screen Comprehensive Metabolic Panel COVID-19 (Novel Coronavirus), Rapid PCR Depakote Level Dilantin Level Ethanol Level GLUCOSE POC HOLD BLUE TUBE HOLD URINE CULTURE HOLD URINE, HEMATOLOGY Levetiracetam Level Magnesium Level Opiate Screen Urine Phosphorus Level TSH with T4 Reflex (Adults Only) Urinalysis w/hold for Urine Culture CT Angio Head Hyperacute Stroke CT Angio Neck Hyperacute Stroke CT Head-Hyper Acute Stroke CXR Portable Add On Lab Order?? Ammonia Venous?? Amphetamine Urine Screen?? Barbiturate Urine Screen?? Basic Metabolic Panel?? Benzodiazepine Urine Screen?? CBC?? CBC w/ Differential?? COVID-19 (Novel Coronavirus), Rapid PCR?? CT Angio Head Hyperacute Stroke?? CT Angio Neck Hyperacute Stroke?? CT Head-Hyper Acute Stroke?? Cannabinoid Urine Screen?? Clobazam Level?? Cocaine Urine Screen?? Comprehensive Metabolic Panel?? Ethanol Level?? Glucose POC?? Hold Blue Top Tube (HOLD BLUE TUBE)?? Hold Urine (HOLD URINE, HEMATOLOGY)?? Hold Urine Culture?? Lamotrigine Level?? Levetiracetam Level?? Magnesium Level?? Opiate Screen Urine?? Phenytoin Total Level (Dilantin Level)?? Phosphorus Level?? TSH with T4 Reflex (Adults Only)?? Urinalysis w/hold for Urine Culture?? Valproic Acid Level (Depakote Level)?? Chest Portable (CXR Portable)?? Primary Care Provider Not on Staff, PCP?? Advance Directive Health Care Proxy on File Yes - Health Care Proxy Yes - MOLST Discharge Vitals Temperature: 97.2 DegF Height: 180 cm Pulse Rate: 66 bpm Weight: 118 kg Respiratory Rate: 20 br/min Body Mass Index:??36.42 kg/m2??Critical Systolic Blood Pressure: 121 mm Hg Body surface area: 2.43 Diastolic Blood Pressure: 66 mm Hg ?? Oxygen Saturation: 99 % ?? Studies Pending All studies ordered during this hospital stay have been completed unless listed below. Please discuss all pending results with your provider listed above in these instructions. ?? Add On Lab Order?? Basic Metabolic Panel?? Clobazam Level?? Lamotrigine Level?? What to do next Instructions From Your Doctor You are admitted for seizures Increase the dose of clobazam??to 10 mg in the morning??and 10 at bedtime ??continue other medications Please follow-up with neurology??in 2 to 3 weeks Please follow with your PCP in 7 days to check CBC, BMP ?? Orders??:Regular Diet? 11/26/23 15:20:00 EDT?? Prescriptions??, ??11/26/23 15:20:00 EDT?? Scheduled Follow-Up Appointments Wednesday 1:30 PM EDT ?? With: Winston NUÑEZ, Marli George Where: [facility] [address] [facility] 3[address] Floor, [address] [place] [id number]- Status: Pending You Need to Schedule the Following Appointments Follow Up with??Not on Staff, PCP Discharge Medications RAND WILKERSON :1980 Visit Date:11/25/2023 Medications: Please continue your medications until treatment is completed or stopped by your provider. Medications not listed below should be discontinued. Discuss any questions related to medications with your provider. What How Much When Instructions Next Dose Changed Clobazam (clobazam 10 mg oral tablet) 10 Milligram Oral Daily at Bedtime Tonight 9PM Changed Clobazam (clobazam 10 mg oral tablet) 1 tab(s) Oral Daily in the morning [facility] Tomorrow 9 AM Unchanged Albuterol/ Ipratropium (Combivent Respimat 20 mcg-100 mcg/ inh inhalation aerosol) 1 puff(s) Inhalation 4 times a day Today 6PM Unchanged Clonazepam (clonazePAM 0.5 mg oral tablet) 1 tab(s) Oral Daily in the morning Tomorrow 9??AM Unchanged Clonazepam (clonazePAM 1 mg oral tablet) 1 tab(s) Oral Daily at Bedtime ?? Tonight?? 9PM ?? Unchanged Folic Acid (folic acid 1 mg oral tablet) 1 tab(s) Oral Daily Tomorrow 9AAM Unchanged Ibuprofen (Motrin Tablet) 600 Milligram Oral 3 times a day with meals Today with dinner Unchanged Lamotrigine (lamotrigine 150 mg oral tablet) 2 tablets Oral Twice a day Tonight 9PM Unchanged Melatonin (melatonin 5 mg oral tablet) 1 tab(s) Oral Daily at Bedtime Tonight 9PM Unchanged Olanzapine (olanzapine 5 mg oral tablet) 1 tab(s) Oral Daily at Bedtime Tonight 9PM Unchanged Phenytoin (phenytoin 200 mg oral capsule, extended release) 200 Milligram Oral Daily in the morning Tomorrow 9AM Unchanged Phenytoin (phenytoin 300 mg oral capsule, extended release) 300 Milligram Oral Daily at Bedtime Tonight 9PM Unchanged Polyethylene Glycol 3350 (MiraLax oral powder for reconstitution) 17 gram Oral Daily Tomorrow AM Unchanged Sertraline (sertraline 50 mg oral tablet) 1 tab(s) Oral Daily Tomorrow 9AM Unchanged Thiamine (Vitamin B1 100 mg oral tablet) 1 tab(s) Oral Daily Tomorrow 9AM Unchanged Trazodone (traZODone 50 mg oral tablet) 1 tab(s) Oral Daily at Bedtime Tonight 9PM Pharmacy Information [facility]: [address] [place], [place] [id number] [phone] Prescription Given During Visit Clobazam (clobazam 10 mg oral tablet) - 1 tablet = 10 mg, By Mouth, Daily in AM, # 30 tablet, 1 Refills, [facility] [place] [phone]?? Laboratory Results Below is a partial list of the most recent Laboratory test results done prior to this discharge. You may have had other tests and procedures not included in this list. Please discuss all test resultswith your provider. Est Creatinine Clearance - 127.59 mL/min (11/26/2023) Ammonia Venous (11/26/2023) ???Ammonia, Venous - 40 ??mole/L Amphetamine Urine Screen (11/25/2023) ???Amphetamine Screen, Urine - NONE DETECTED Barbiturate Urine Screen (11/25/2023) ???Barbiturate Screen, Urine - NONE DETECTED Benzodiazepine Urine Screen (11/25/2023) ???Benzodiazepine Screen, Urine - POSITIVE Cannabinoid Urine Screen (11/25/2023) ???Cannabinoid Screen, Urine - NONE DETECTED CBC (11/26/2023) ???WBC - 4.0 k/mm3???RBC - 4.38 m/mm3???Hgb - 13.4 Gm/dL???Hct - 41.2 %???MCV - 94.1 femtoliters???MCH - 30.6 pg???MCHC - 32.5 g/dL???Platelet Count - 188 k/mm3???RDW-SD - 47.3 femtoliters???MPV - 10.7 femtoliters???Nucleated RBC (Automated) - 0.0 #/100 WBC'S???Abs. NRBC - 0.0 k/mm3 CBC w/ Differential (11/25/2023) ???WBC - 8.2 k/mm3???RBC - 4.54 m/mm3???Hgb - 14.2 Gm/dL???Hct - 45.6 %???MCV - 100.4 femtoliters???MCH - 31.3 pg???MCHC - 31.1 g/dL???Platelet Count - 240 k/mm3???RDW-SD - 50.9 femtoliters???MPV - 11.6 femtoliters???Nucleated RBC (Automated) - 0.0 #/100 WBC'S???Abs. NRBC - 0.0 k/mm3???Abs. Neut - 4.9 k/mm3???Abs. Lymph - 2.5 k/mm3???Abs. [place] - 0.7 k/mm3???Abs. Eo - 0.1 k/mm3???Abs. Baso - 0.0 k/mm3???Neut % - 59.4 %???Lymph % - 30.7 %???[place] % - 8.4 %???Eos % - 0.9 %???Baso % - 0.4 %???Imm Gran - 0.2 %???Abs. Imm Gran - 0.0 k/mm3 Cocaine Urine Screen (11/25/2023) ???Cocaine Metabolite Screen, Urine - NONE DETECTED Comprehensive Metabolic Panel (11/26/2023) ???Sodium - 139 mmol/L???Potassium - HEMOLYZED???Chloride - 105 mmol/L???Bicarbonate Level - 23 mmol/L???Anion Gap - 11???Glucose Level - 86 mg/dL???BUN - 19 mg/dL???Creatinine-Blood - 0.80 mg/dL???Estimated GFR Creatinine - 113 ML/MIN/1.73 M2???Calcium - 8.9 mg/dL???Protein, Total - 7.1 Gm/dL???Albumin - 3.7 Gm/dL???AG Ratio - 1.1???Alkaline Phosphatase - 101 units/L???AST (SGOT) - 25 units/L???ALT (SGPT) - 12 units/L???Bilirubin, Total - 0.4 mg/dL COVID-19 (Novel Coronavirus), Rapid PCR (11/25/2023) ???COVID-19 by RT-PCR - NEGATIVE Depakote Level (11/25/2023) ? ?Valproic Level - <2.8 mg/L Dilantin Level (11/25/2023) ???Dilantin Level - 18.3 mg/L Ethanol Level (11/25/2023) ???Ethanol, Serum or Plasma - NONE DETECTED GLUCOSE POC (11/25/2023) ???Glucose, POC - 84 mg/dL HOLD BLUE TUBE (11/25/2023) ???Hold Blue Top - SPECIMEN DISCARDED AFTER 4 HOURS. HOLD URINE CULTURE (11/25/2023) ???Hold Urine Culture - Testing available 48 hours from time of collection. HOLD URINE, HEMATOLOGY (11/25/2023) ???Hold Urine - Testing Available 24 hours from Time of Collection Levetiracetam Level (11/25/2023) ? ?Levetiracetam Level - <2 mg/L Magnesium Level (11/26/2023) ???Magnesium - 2.2 mg/dL Opiate Screen Urine (11/25/2023) ???Opiate Screen, Urine - NONE DETECTED Phosphorus Level (11/26/2023) ???Phosphorus - 2.9 mg/dL TSH with T4 Reflex (Adults Only) (11/25/2023) ???TSH - 1.64 uIU/mL Urinalysis w/hold for Urine Culture (11/25/2023) ???Appear/Color, Urine - LIGHT YELLOW???Specific [place], Urine - 1.047???pH, Urine - 6.5???Albumin, Urine - NEGATIVE???Glucose, Urine - NEGATIVE???Ketones, Urine - NEGATIVE???Bilirubin, Urine - NEGATIVE???Hemoglobin, Urine - NEGATIVE???Nitrite, Urine - NEGATIVE???Leukocyte, Urine - NEGATIVE???Urobi linogen - NORMAL???WBC's, Urine - NONE SEEN???RBC's, Urine - 2 /HPF???Mucus - SLIGHT???Hold Urine Culture - Testing available 48 hours from time of collection. You will be contacted within 72 hours with your results. Allergies (NKA means No Known Allergies) erythromycin??(rash) Problems Active Problems??(5) COPD without exacerbation?? COVID?? Obese class II?? Obesity?? Polysubstance abuse?? Education Materials Below is the list of Educational Leaflet Providered with your Discharge Instructions. Valuables and Belongings I fully understand and agree that [facility] accepts no responsibility for all my [...] of Valuable and Belonging List: With patient Possessions released to: belongings in locker #18 Date for Pt to Sign Valuables/Belongings: 11/25/23 17:00:00 ?? Other Discharge Information ? Pulmonary Rehab Status?? Pulmonary Rehab Discharge Status?? Respiratory Rate: 20 br/min ? Common Emergency Awareness Tips IS [...] are strongly encouraged to quit. Please call [facility] at [phone] or [phone] or log in to [email or web address] for referrals to smoking cessation programs. ?? 342 Suicide & Crisis Lifeline is available 28/09 if you or someone you know needs to find a reason to keep living. By calling 790 you'll be connected to a skilled, trained counselor at a crisis center in your area. INPATIENT DISCHARGE INSTRUCTIONS SIGNATURE PAGE RAND WILKERSON Location:[facility] Registration Date and Time:11/25/2023 18:31 EDT Primary Care Physician: Not on Staff, PCP Attending Physician: Jovana AVILA, Marcelle, I RAND WILKERSON, have received the above patient education materials/instructions and have verbalized understanding. If ambulance or transport services are being used I further acknowledge being given a choice of service. ?? If you need to contact me, please call me at this number: . 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 Signature: Relationship to Patient: Witness Name/Signature: Date: Patient Care team information Care Team Personnel Name: Gus Mcgraw RN Position: S RN [...] Care Nurse Name: Kavita Polo NP Position: [facility] Associate Professional Member Role: Primary Care Nurse Address: Address: [address] [place] [id number] Name: Not on Staff, PCP Position: [facility] Physician (General Medicine) Member Role: PCP Name: See Chavez RN Position: [facility] RN Member Role: Primary Care Nurse Name: Myke Mcfadden RN Position: [facility] RN Member Role: Primary Care Nurse Name: Monika Marquez RN Position: S RN Member Role: Primary Care Nurse Name: Elaine Reis RN Position: S RN Member Role: Primary Care Nurse Name: Veronika Dinero LPN Position: S RN Member Role: Primary Care Nurse Care Team Related Persons Name: JEANNE GIRON Address: [address] [place] [address] Name: CHARITO DOOLEY Address: home [address] [place] [address]
--- OUTSIDE RECORDS SUMMARY | 2024-02-03 15:00 | XMS_ITS | Continuity of Care Document ---
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 Role Phone Not on Staff, PCP Primary Care Physician Unavail able [place] [facility] [place]): 12/25/23 - 12/28/[address] [address]- Encounter Diagnosis Fall(Final) - 12/25/23 Neck pain(Final) - 12/25/23 Discharge Disposition: A-Transfer VNA/Home Health Attending Physician: Robyn De La Cruz MD, Emily Admitting Physician: Elsa AVILA, Ava Villeda Referring Physician: Not on Staff, Referring MD [...] 0 Refills, Maintenance, 12/19/23 10:24:00 EDT, Tablet, [facility]pharmacy #[id number], Partial fill upon patient request [...] 0 Refills, Maintenance, 12/27/23 7:37:00 EDT, Tablet, [facility], Partial fill upon patient request [...] 7:07:00 EDT, 12/28/23 7:07:00 EDT, Ophth Solution, [facility], Partial fill upon patient request [...] Exam Date Time Procedure Performing Provider Status 12/25/23 12:[address] Cervical Spine W/O Contrast Colon , Sherice; Auth (Verified) Notes: (CT Cervical Spine W/O Contrast) Reason For Exam: Neck trauma, dangerous injury mechanism;Other: RESULT: CT Cervical Spine W/O Contrast CT Head/Brain W/O Contrast, CT Cervical Spine W/O Contrast Hx of Present Illness: I've been having a lot of seizures ; Reason: Trauma; Clinical Question(s): Hematoma. TECHNIQUE: Incremental CT without contrast through the head was formatted in axial and coronal plane. Spiral CT without contrast through the cervical spine was formatted in 3 planes. Weight-based protocol using automatic tube modulation was performed to optimize scan parameters. CTDIvol Body: 23.10 mGy, DLP Body: 693 mGy*cm. CTDIvol Head: 39.70 mGy, DLP Head: 672 mGy*cm. COMPARISON: 11/19/2023. FINDINGS: BRAIN and EXTRA-AXIAL SPACES: No parenchymal hemorrhage, midline shift or mass effect. Luke-white matter differentiation is well preserved. No acute infarct. Similar appearance of prominent CSF space in the posterior fossa, which may represent an arachnoid cyst, patsy cisterna magna, or Dandy-Walker malformation. Otherwise ventricles, sulci, and basilar cisterns are normal No white matter lesions. No subarachnoid hemorrhage, subdural or epidural collections. CALVARIUM, SKULL BASE AND SOFT TISSUES: No fractures or suspicious bony lesions. The paranasal sinuses and mastoid air cells are clear. Visualized orbits and globes are intact. The extracranial soft tissues are unremarkable. CERVICAL SPINE AND INCLUDED OSSEOUS STRUCTURES: No acute osseous abnormalities. Normal alignment. No locked or perched facet. No significant appearing degenerative changes. CERVICAL SOFT TISSUES AND LUNG APICES: No evidence of acute injury, adenopathy, or suspicious mass. Clear lung apices. IMPRESSION: No evidence of an acute intracranial or cervical spine abnormality. WSN: [id number] Ordering Physician: Lina Garnett Dictated By: Rafael Lester MD Dictated Date/Time: 12/25/23 1:29 pm Reviewed By: Rafael Lester MD Signed By: Rafael Lester MD Signed Date/Time: 12/25/23 1:29 pm Transcribed By: JOJO Transcribed Date/Time: 12/25/23 1:25 pm * Exam Date Time Procedure Performing Provider Status 12/25/23 12:[address] Head/Brain W/O Contrast Colon , T atiana; Auth (Verified) Notes: (CT Head/Brain W/O Contrast) Reason For Exam: Trauma RESULT: CT Head/Brain W/O Contrast CT Head/Brain W/O Contrast, CT Cervical Spine W/O Contrast Hx of Present Illness: I've been having a lot of seizures ; Reason: Trauma; Clinical Question(s): Hematoma. TECHNIQUE: Incremental CT without contrast through the head was formatted in axial and coronal plane. Spiral CT without contrast through the cervical spine was formatted in 3 planes. Weight-based protocol using automatic tube modulation was performed to optimize scan parameters. CTDIvol Body: 23.10 mGy, DLP Body: 693 mGy*cm. CTDIvol Head: 39.70 mGy, DLP Head: 672 mGy*cm. COMPARISON: 11/19/2023. FINDINGS: BRAIN and EXTRA-AXIAL SPACES: No parenchymal hemorrhage, midline shift or mass effect. Luke-white matter differentiation is well preserved. No acute infarct. Similar appearance of prominent CSF space in the posterior fossa, which may represent an arachnoid cyst, patsy cisterna magna, or Dandy-Walker malformation. Otherwise ventricles, sulci, and basilar cisterns are normal No white matter lesions. No subarachnoid hemorrhage, subdural or epidural collections. CALVARIUM, SKULL BASE AND SOFT TISSUES: No fractures or suspicious bony lesions. The paranasal sinuses and mastoid air cells are clear. Visualized orbits and globes are intact. The extracranial soft tissues are unremarkable. CERVICAL SPINE AND INCLUDED OSSEOUS STRUCTURES: No acute osseous abnormalities. Normal alignment. No locked or perched facet. No significant appearing degenerative changes. CERVICAL SOFT TISSUES AND LUNG APICES: No evidence of acute injury, adenopathy, or suspicious mass. Clear lung apices. IMPRESSION: No evidence of an acute intracranial or cervical spine abnormality. WSN: [id number] Ordering Physician: Lina Garnett Dictated By: Rafael Lester MD Dictated Date/Time: 12/25/23 1:29 pm Reviewed By: Rafael Lester MD Signed By: Rafael Lester MD Signed Date/Time: 12/25/23 1:29 pm Transcribed By: JOJO Transcribed Date/Time: 12/25/23 1:25 pm Vital Signs Most recent to oldest [Reference Range]: 1 2 3 Height 180 cm (12/28/23 9:06 AM) 180 cm (12/27/23 12:51 PM) 180 cm (12/27/23 2:43 AM) Weight 117.4 kg (12/25/23 6:07 PM) Oxygen Saturation [94-100 %] 98 % (12/28/23 9:06 AM) 98 % (12/28/23 8:00 AM) 97 % (12/28/23 3:00 AM) Pulse Rate [55-90 bpm] 65 bpm (12/28/23 9:06 AM) 61 bpm (12/28/23 8:00 AM) 58 bpm (12/28/23 3:00 AM) Body Mass Index [18.5-24.99 kg/m2] 36.23 kg/m2 *>HHI* (12/25/23 6:07 PM) Blood Pressure [90-138/55-84 mm Hg] 146/86mm Hg *H* (12/28/23 9:06 AM) 136/63mm Hg (12/28/23 8:00 AM) 111/57mm Hg (12/28/23 3:00 AM) Respiratory Rate [16-30 br/min] 18 br/min (12/28/23 9:06 AM) 18 br/min (12/28/23 8:00 AM) 18 br/min (12/28/23 3:00 AM) Temperature [96.8-100.4 DegF] 97.7 DegF (12/28/23 9:06 AM) 96.9 DegF (12/28/23 8:00 AM) 96.7 DegF *L* (12/28/23 3:00 AM) Mode of Delivery (Oxygen) Room air (12/28/23 9:06 AM) Room air (12/28/23 8:00 AM) Room air (12/28/23 3:00 AM) Blood pressure sites Arm, right (12/28/23 9:06 AM) Arm, left (12/28/23 8:00 AM) Arm, right (12/28/23 3:00 AM) Temperature Route Oral (12/28/23 9:06 AM) Temporal (12/28/23 8:00 AM) Temporal (12/28/23 3:00 AM) Dry Weight 117.4 kg (12/25/23 6:07 PM) Weight Obtained Via Bed scale (12/25/23 6:07 PM) Social History Social History Type Response Smoking Status 5-9 cigarettes (betw een 1/4 to 1/2 pack)/day in last 30 days; Interested in cessation: No entered on: 08/17/22 Sex History and physical note * Dhaval AVILA, Rand Disla: PERFORM Event Display: History and Physical Hospital Authored Date: Patient: ??ROCK RAND ? Age:??43 Years?Sex:??Male?:??1980?? Chief Complaint/Reason for Consultation From home after a seizure, pt was found in the corner of dining room floor face down complaining ofneck pain. unwitnessed History of Present Illness 43-year-old male with past medical history??significant for juvenile myoclonic epilepsy, bipolar disorder, polysubstance abuse, alcohol use disorder, and COPD??who was brought to the emergency room this morning after his uncle found him in the living room corner on the floor, [facility], after suspected seizure.?? The patient was conscious and able to speak in full sentences.?? He was able to move all 4 extremities, and did not complain of headache??or??visual changes.?? No reported tongue bite or incontinence. ??There was no report of fever or illness.?? The patient has had multiple previous admissions for recurrent seizure activity, with most recent 12/16/2023 to 12/19/2023 with adjustment of his Clobazam dosing (20 mg bid) per neurology.?? The patient does not really remember the event,??but does state that his uncle found him on the floor. ??He lives with his brother. ?? In the emergency department,??the patient has remained afebrile and hemodynamically stable.?? Norespiratory distress or hypoxia.?The patient had multiple episodes of attempting to stand up andfalling back on the bed, throwing himself and his arms up.?? At one??point, he was urinating into aurinal and then ended up dropping the urine all over the floor due to one of these episodes.?? He retained consciousness and was lucid during the events, without obvious postictal phase.?? He was medicated with 1 mg of Ativan IV.?He does tell me he has been compliant with his medications, but fails to comment when asked specifically about the dosing.?? He denies any illicit substance use, although does have a history of this.?? He does not answer when asked when his last drink was, and does have a history of alcohol abuse, but per??documentation on last admission,??was not actively drinking.?? CT of the head was unremarkable for acute pathology.?Laboratory workup was also unremarkable.?? His Dilantin level was supratherapeutic at 25.1.?? Alcohol level was negative and urine toxicology was only positive for benzos.?? Urinalysis was unremarkable. Review of Systems Other than those positives as noted in the HPI above, all other systems were reviewed and are negative. Objective Measurements?? Height: 180 cm (12/25/23) Weight: 117.4 kg (12/25/23) Dry Weight: 117.4 kg (12/25/23) Body Mass Index:??36.23 kg/m2??Critical (12/25/23) ? Vital Signs?? Temperature: 97 DegF (12/25/23 20:08:00) Temperature Route: Temporal (12/25/23 20:08:00) Pulse Rate: 67 bpm (12/25/23 20:08:00) Respiratory Rate: 20 br/min (12/25/23 20:08:00) Systolic Blood Pressure:??139 mm Hg??High (12/25/23 20:08:00) Diastolic Blood Pressure: 60 mm Hg (12/25/23 20:08:00) Blood pressure sites: Arm, right (12/25/23 20:08:00) Mean Arterial Pressure: 86 mm Hg (12/25/23 20:08:00) Pulse Pressure: 79 mm Hg (12/25/23 20:08:00) Oxygen Saturation: 99 % (12/25/23 20:08:00) Mode of Delivery (Oxygen): Room air (12/25/23 20:08:00) Early Warning Score: 2 (12/25/23 20:08:53) ? Pain Scores?? No qualifying data available. ? Physical Exam General Appearance: Alert, no distress, answers questions appropriately HEENT: Normocephalic, atraumatic, PERRL, EOMI, no nystagmus,??no scleral icterus, no facial droop, moist mucous membranes, no oropharynx lesions?? Neck: Supple, no JVD, no C-Spine tenderness Cardiac: RRR, S1 & S2 present, no m / r / g appreciated Chest: Clear to auscultation bilaterally, no wheezing / ronchi / rales Abdomen: Soft, nontender, no distention, no rebound or guarding, no masses Extremities: No clubbing, cyanosis, or edema. ??2+ distal pulses.?? No calf tenderness or cords Skin: Warm, no rash Neuro: ??A & O x 3, CN III-XII intact, strength 5/5 of upper / lower extremities bilaterally, no drift, gross sensation intact, no focal cerebellar abnl, 2??shaking episodes during my interview without LOC or train of thought Psych: ??Stable mood, no SI Assessment/Plan Assessment:??43-year-old male with past medical history??significant for juvenile myoclonic epilepsy, bipolar disorder, polysubstance abuse, alcohol use disorder, and COPD??who was brought to the emergency room this morning after his uncle found him in the living room corner on the floor, [facility],after suspected seizure.?The patient had multiple episodes of attempting to stand up and fallingback on the bed, throwing himself and his arms up, while in the ER.??He retained consciousness and was lucid during the events, without obvious postictal phase.?Admission requested for ongoing workup of possible breakthrough seizures. ?? Seizure-like activity (R56.9) ?Grouped with??Juvenile myoclonic epilepsy (G40.B09) The patient had 2 episodes of??shaking movements??during my interview with him.??He did not have postictal phase, and remained lucid during the events.??He does not have focal neurologic findings on exam.??No fever or obvious infectious etiology.??Metabolic workup is unremarkable??thus far.??Differential diagnoses include PNES,??epileptic seizures??with??or without medication compliance, and toxic???metabolic encephalopathy. -Admit to the medical floor,??telemetry monitoring, neurochecks every 4 hours, seizure precautions -Continue clobazam??and lamotrigine as prescribed, follow up serum drug levels; check prolactin level -Hold phenytoin dose tonight given supratherapeutic level;??resume phenytoin ER 200 mg twice daily starting tomorrow morning??after??repeat level -Avoid medications lowering the seizure threshold -Lorazepam 2 mg IV as needed for any seizure activity greater than 5 minutes -Neurology consultation requested;??question EEG versus video EEG monitoring, or any further neuroimaging ?? Alcohol use disorder (F10.90):??Alcohol level negative.??No other signs of withdrawal other than seizure-like activity. Patient??denies recent use??per previous documentation. We will monitor with CIWA protocol. ?? Bipolar disorder (F31.9):??No current SI.??Mood stable. Resume sertraline,??olanzapine, and trazodone as prescribed. Continue hydroxyzine as needed for??anxiety. ?? VTE Prophylaxis:??Lovenox 40 mg subcutaneously daily. ?VTE Prophylaxis Assessment:??VTE Prophylaxis Ordered ?? Tobacco Use Treatment:??Declines NRT at this time. ?? Discharge Planning:??Disposition pending. 1 to 2 days hospitalization. ?? Code Status:??FULL. ?Order Code Status:??Code Status Ordered ?? I spent a total of??75 minutes today reviewing the chart / medical records, evaluating the patient,evaluating and interpreting laboratory and imaging data, formulating and discussing the treatment plan, and documenting the encounter. ? Histories Allergies Allergies ?(Active and Proposed Allergies Only) cyclobenzaprine? (Severity: Unknown severity, Onset: Unknown) erythromycin? (Severity: Unknown severity, Onset: Unknown) ?Reactions: rash ? Past Medical History/Problem List Active Problems(7) Alcohol use disorder Bipolar disorder COPD without exacerbation COVID-19 Juvenile myoclonic epilepsy Obese class II Polysubstance abuse ? Past Surgical History No surgery history documented. ? Social History Alcohol Details:??Use: Previous. ??Frequency: Daily. ??Type: Beer, Liquor. ??Other: Up to a 12 pack of beerand multiple shots a day, drinks daily but amount varies. Home/Environment Details:??Living situation: Home/Independent. ??Lives with: Brother. Nutrition/Health Details:??Diet: Regular. Substance Abuse Details:??Use: Past. ??Type: Cocaine, Heroin, Marijuana. Tobacco Details:??Use: 5-9 cigarettes (between 1/4 to 1/2 pack)/day in last 30 days. ??Interested in cessation: No. ? Family History No reported Family History??of seizures. ?? Medications Home Medications Albuterol/Ipratropium (Combivent Respimat 20 mcg-100 mcg/inh inhalation aerosol)?1?puff(s)?Inhalation?4 times a day?as needed?Wheezing/Shortness of Breath Clobazam (cloBAZam 20 mg oral tablet)?1?tab(s)?20?Milligram?By Mouth?2 times a day?for 30?Days HydrOXYzine (hydrOXYzine hydrochloride 25 mg oral tablet)?1?tab(s)?25?Milligram?By Mouth?4 times a day?as needed?for anxiety Ibuprofen (Motrin Tablet)?600?Milligram?By Mouth?3 times a day with meals Lamotrigine (lamotrigine 150 mg oral tablet)?2 tablets?By Mouth?2 times a day Melatonin (Melatonin 3 mg oral tablet)?TAKE 2 TABLETS BY MOUTH AT BEDTIME IF NEEDED FOR SLEEP Olanzapine (olanzapine 5 mg oral tablet)?5?Milligram?1?tablet?By Mouth?Daily at bedtime Phenytoin (phenytoin 200 mg oral capsule, extended release)?200?Milligram?By Mouth?Daily in AM Phenytoin (phenytoin 300 mg oral capsule, extended release)?300?Milligram?By Mouth?Daily at bedtime Sertraline (sertraline 50 mg oral tablet)?100?Milligram?By Mouth?Daily Thiamine (Vitamin B1 100 mg oral tablet)?100?Milligram?1?tablet?By Mouth?Daily Trazodone (traZODone 50 mg oral tablet)?50?Milligram?1?tablet?By Mouth?Daily at bedtime ? Results Recent Labs BLOOD COUNT & DIFF WBC 5.1 k/mm3 ()?? 12/25/2023 11:04 RBC 4.78 m/mm3 ()?? 12/25/2023 11:04 Hgb 14.6 Gm/dL ()?? 12/25/2023 11:04 Hct 45.1 % ()?? 12/25/2023 11:04 MCV 94.4 femtoliters (High)?? 12/25/2023 11:04 MCH 30.5 pg ()?? 12/25/2023 11:04 MCHC 32.4 Gm/dL (Low)?? 12/25/2023 11:04 Platelet Count 223 k/mm3 ()?? 12/25/2023 11:04 RDW-SD 47.4 femtoliters (High)?? 12/25/2023 11:04 MPV 10.7 femtoliters ()?? 12/25/2023 11:04 Nucleated RBC (Automated) 0.0 #/100 WBC'S ()?? 12/25/2023 11:04 Abs. NRBC 0.0 k/mm3 ()?? 12/25/2023 11:04 Abs. Neut 2.9 k/mm3 ()?? 12/25/2023 11:04 Abs. Lymph 1.6 k/mm3 ()?? 12/25/2023 11:04 Abs. [place] 0.4 k/mm3 ()?? 12/25/2023 11:04 Abs. Eo 0.2 k/mm3 ()?? 12/25/2023 11:04 Abs. Baso 0.0 k/mm3 ()?? 12/25/2023 11:04 Neut % 57.3 % ()?? 12/25/2023 11:04 Lymph % 30.4 % ()?? 12/25/2023 11:04 [place] % 8.4 % ()?? 12/25/2023 11:04 Eos % 3.1 % ()?? 12/25/2023 11:04 Baso % 0.4 % ()?? 12/25/2023 11:04 Imm Gran 0.4 % ()?? 12/25/2023 11:04 Abs. Imm Gran 0.0 k/mm3 ()?? 12/25/2023 11:04 ?? CHEM GENERAL Sodium 143 mmol/L ()?? 12/25/2023 10:57 Potassium 4.0 mmol/L ()?? 12/25/2023 10:57 Chloride 104 mmol/L ()?? 12/25/2023 10:57 Bicarbonate Level 27 mmol/L ()?? 12/25/2023 10:57 Anion Gap 12 ()?? 12/25/2023 10:57 Glucose Level 96 mg/dL ()?? 12/25/2023 10:57 BUN 17 mg/dL ()?? 12/25/2023 10:57 Creatinine-Blood 0.89 mg/dL ()?? 12/25/2023 10:57 Estimated GFR Creatinine 110 ML/MIN/1.73 M2 ()?? 12/25/2023 10:57 Calcium 9.3 mg/dL ()?? 12/25/2023 10:57 Protein, Total 7.5 Gm/dL ()?? 12/25/2023 10:57 Albumin 4.4 Gm/dL ()?? 12/25/2023 10:57 AG Ratio 1.4 ()?? 12/25/2023 10:57 Alkaline Phosphatase 86 units/L ()?? 12/25/2023 10:57 AST (SGOT) 21 units/L ()?? 12/25/2023 10:57 ALT (SGPT) 14 units/L ()?? 12/25/2023 10:57 Bilirubin, Total 0.3 mg/dL ()?? 12/25/2023 10:57 ?? TOXICOLOGY/TDM Ethanol, Serum or Plasma NONE DETECTED mg/dL ()?? 12/25/2023 10:57 Dilantin Level 25.1 mg/L (Critical)?? 12/25/2023 10:57 Valproic Level <2.8 mg/L (Low)?? 12/25/2023 10:57 Barbiturate Screen, Urine NONE DETECTED ()?? 12/25/2023 14:41 Cannabinoid Screen, Urine NONE DETECTED ()?? 12/25/2023 14:41 Cocaine Metabolite Screen, Urine NONE DETECTED ()?? 12/25/2023 14:41 Benzodiazepine Screen, Urine POSITIVE (Abnormal)?? 12/25/2023 14:41 Amphetamine Screen, Urine NONE DETECTED ()?? 12/25/2023 14:41 Opiate Screen, Urine NONE DETECTED ()?? 12/25/2023 14:41 ?? UA/URINALYSIS Appear/Color, Urine COLORLESS ()?? 12/25/2023 14:41 Specific [place], Urine 1.012 ()?? 12/25/2023 14:41 pH, Urine 7.5 ()?? 12/25/2023 14:41 Albumin, Urine NEGATIVE ()?? 12/25/2023 14:41 Glucose, Urine NEGATIVE ()?? 12/25/2023 14:41 Ketones, Urine NEGATIVE ()?? 12/25/2023 14:41 Bilirubin, Urine NEGATIVE ()?? 12/25/2023 14:41 Hemoglobin, Urine NEGATIVE ()?? 12/25/2023 14:41 Nitrite, Urine NEGATIVE ()?? 12/25/2023 14:41 Leukocyte, Urine NEGATIVE ()?? 12/25/2023 14:41 Urobilinogen NORMAL mg/dL ()?? 12/25/2023 14:41 WBC's, Urine 1 /HPF ()?? 12/25/2023 14:41 RBC's, Urine NONE SEEN /HPF ()?? 12/25/2023 14:41 Squamous Epith <1 /HPF ()?? 12/25/2023 14:41 Mucus SLIGHT /LPF ()?? 12/25/2023 14:41 Hold Urine Culture Testing available 48 hours from time of collection. ()?? 12/25/2023 14:41 ?? URINE OTHER Est Creatinine Clearance 114.69 mL/min ()?? 12/25/2023 18:24 ? Image ?CT Head/Brain W/O Contrast??12/25/2023 12:19 by Colon , Sherice ?IMPRESSION: No evidence of an acute intracranial or cervical spine abnormality. ?? Cardiology * Event Display: Cardiac Rhythm Strips Authored Date: * Event Display: Cardiac Rhythm Strips Authored Date: Hospital Progress note * Mary Ann Lundberg RN: PERFORM, SIGN, VERIFY Event Display: Progress Note Hospital Authored Date: Patient: RAND WILKERSON Age: 43 years Sex: Male : 1980 Associated Diagnoses: None Author: Mary Ann Lundberg RN Findings Evaluation Received pt from D5, A+Ox4. Independent in his room. On seizure precaution. Bed at lowest position and locked. Call pham within reach. Lucho levy for his ride home. . Discharge Information Case Management Discharge Plan : Case Management Discharge Plan Data 12/28/2023 11:57 EDT Discharge Level of Care at Discharge Homehealth/VNA Discharge VNA/Hospice/Home Care [facility] [phone] 12/28/2023 10:06 EDT Discharge Level of Care at Discharge Homehealth/VNA Discharge VNA/Hospice/Home Care [facility] [phone] Name of Agency #1 [facility] Categories #1 [facility] Comments #1 [facility] will resume Skilled Nurse services. * Stefany Estrada RN: PERFORM, SIGN, VERIFY Event Display: Progress Note Hospital Authored Date: Patient: RAND WILKERSON Age: 43 years Sex: Male : 1980 Associated Diagnoses: None Author: Stefany Estrada RN Findings Problem Related to Alteration in Neurological : Alteration in Neurological Function/new 12/27/2023 23:00 EDT Alteration in Neuro status Related to Seizure Goals & Outcomes, Neurological Lab studies/diagnostic tests within pt specific limits, Pt is safe with transfers & activities, Pt will be hemodynamically stable, Pt will be Neurologically stable, Pt will become pain free with appropriate intervention, Pt will maintain intact skin integrity,Pt will remain free from injury, Pt will resume/maintain adequate cardiac output, Pt will state importance of adhering to medication regime, Pt/caregiver will receive psychosocial support as needed, Pt/caregiver will state understanding of rehab plan, Pt/caregiver will state strategies to reduce risk factors, Pt/caregiver will state understanding aspiration precautions, Pt/caregiver will state und erstanding dietary modifications, Pt/caregiver will state understanding of disease process, Pt/caregiver will state understanding of plan/goals of care, Pt/caregiver will state understanding of the D/C plan, Pt will be free from complications r/t seizure activity, Pt will be seizure controlled, Pt will remain free from injury post seizure activity, Pt will return to baseline after post ictal phase Interventions, Neurological Assess/monitor neurologic status, Assess/monitor VS per unit standards & prn, Call/Report variances in assessments to provider, Collaborate w/ provider to implement appropriate guidelines, Collaborate with Nutrition, Collaborate with provider re: medication regime, Document & Monitor O2 Sats; Administer O2 as ordered, Identify psychosocial issues related to diag nosis/illness, If no bowel movement in 3 days activate bowel regime, [place] alternate means of communication, Keep patient's head & body in good alignment, Maintain HOB at least 30 deg, Maintain normothermia, report temp >101.5 F, Maintain patient safety if unsteady gait, Maintain strict intake & output, Monitor Fluid & Electrolytes, Serum Osmolarity, Monitor for headaches, nausea, vomiting, Monitor speech fluency, aphasia, word finding difficulty, Physical assessment per unitstandards, Provide emotional support to Pt/caregiver, Teach & encourage deep breath & coughexercises, Teach and encourage use of Incentive spirometer, Teach pt/caregiver on plan of care, treatment, s/s & meds, Teach pt/caregiver on use of pain scale Goals/Interventions, Neurological Yes Neurological, Problem Start 12/25/2023 21:00 Reviewed plan with, Neurological Patient Patient Progression, Neurological Pt progressing according to plan . Nursing Data Neurological Data. : Neurological Data. 12/27/2023 21:00 EDT Tongue Disposition Midline Neurological Symptoms History of seizures, Weakness or loss of muscle strength Level of Consciousness Full Consciousness Orientated to person, place, time Person, Place, Time, Event Facial Symmetry Intact Characteristics of Speech Other: Mumbling speech Strength LUE 5-Active movement against gravity & [...] command Movement RLE Spontaneous, To command Gait Unable to assess Response Eye Opening Spontaneously Motor Response-Adult Obeys commands Verbal Response-Adult Oriented and converses Winn Coma Score 15 Neuro WNL except Swallow - Neuro Normal . Evaluation A&O X3. Mumbling speech, able to verbalize needs and follow commands. Face symmetrical, tongue midline. Left eye red with some drainage, cleansed with lukewarm water and applied eye drop as ordered. RABAGO 5/. Continent of B/B. Last BM - 12/25. PRN APAP administered for back pain with + effect. Denies MENCHACA, N/V, numbness/tingling. Bed in low position and bed alarm on for safety. No seizure like activity noted/reported thus far. Seizure precautions in place. Urinal, call light and bedside table within reach . * Robyn De La Cruz MD, Emily: PERFORM, MODIFY Event Display: Progress Note Hospital Authored Date: Patient: ??RADN WILKERSON ? Age:??43 Years?Sex:??Male?:??1980?? Subjective Reviewed overnight events.?? No breakthrough seizures last night.?? Neurology recommendations reviewed.?? Discontinue Dilantin.?? Started on??Keppra 1500 mg bid.??Monitor overnight,??if seizure-free can be discharged tomorrow ?? Left eye patch with photophobia.?? No drainage.?? Right eye. ??? Corneal abrasion.?? Needs ophthalmology evaluation.?? Continue eye ointment for now.?? Blurry vision.?? No vision loss. Review of Systems As reviewed above. Objective Vital Signs?? Temperature: 96.8 DegF (12/27/23 07:00:00) Temperature Route: Temporal (12/27/23 07:00:00) Pulse Rate: 63 bpm (12/27/23 07:00:00) Respiratory Rate: 18 br/min (12/27/23 07:00:00) Systolic Blood Pressure: 127 mm Hg (12/27/23 07:00:00) Diastolic Blood Pressure: 71 mm Hg (12/27/23 07:00:00) Blood pressure sites: Arm, left (12/27/23 07:00:00) Mean Arterial Pressure: 78 mm Hg (12/27/23 02:43:00) Pulse Pressure: 56 mm Hg (12/27/23 07:00:00) Oxygen Saturation: 98 % (12/27/23 07:00:00) Mode of Delivery (Oxygen): Room air (12/27/23 07:00:00) Early Warning Score: 2 (12/27/23 07:47:09) ? Physical Exam General: NAD. HEENT: moist oral mucosa. PERRLA, EOMI.?? L eye- red with watering and photophobia- on patch NECK: No JVD. No bruits. Heart: Regular rate. S1 and s2 heard. No murmer, rub or gallop. Lungs: Clear to auscultation. No wheeze, crackles or rhonchi Abdomen : Soft, nondistended, nontender and bowel sounds are active. ??No organomegaly.?? Extremities: No pedal edema, swelling or cyanosis. peripheral pulses 2+ Neurological : grossly non focal. AA0 X3.? Pscy: Mood and affect appropriate.? Results Recent Labs CHEM GENERAL Sodium 139 mmol/L ()?? 12/26/2023 06:36 Potassium 3.9 mmol/L ()?? 12/26/2023 06:36 Chloride 102 mmol/L ()?? 12/26/2023 06:36 Bicarbonate Level 23 mmol/L ()?? 12/26/2023 06:36 Anion Gap 14 ()?? 12/26/2023 06:36 Glucose Level 73 mg/dL ()?? 12/26/2023 06:36 BUN 15 mg/dL ()?? 12/26/2023 06:36 Creatinine-Blood 0.90 mg/dL ()?? 12/26/2023 06:36 Estimated GFR Creatinine 109 ML/MIN/1.73 M2 ()?? 12/26/2023 06:36 Calcium 9.0 mg/dL ()?? 12/26/2023 06:36 Magnesium 1.9 mg/dL ()?? 12/26/2023 06:36 ?? TOXICOLOGY/TDM Dilantin Level 22.5 mg/L (High)?? 12/26/2023 06:36 ?? URINE OTHER Est Creatinine Clearance 113.41 mL/min ()?? 12/26/2023 09:14 ? Assessment/Plan 43-year-old male with past medical history??significant for juvenile myoclonic epilepsy, bipolar disorder, polysubstance abuse, alcohol use disorder, and COPD??who was brought to the emergency room this morning after his uncle found him in the living room corner on the floor, [facility], after suspected seizure.?The patient had multiple episodes of attempting to stand up and falling back on the bed, throwing himself and his arms up, while in the ER.??He retained consciousness and was lucid during the events, without obvious postictal phase.?Admission requested for ongoing workup of possible breakthrough seizures. ?? Seizure-like activity (R56.9) ?Grouped with??Juvenile myoclonic epilepsy (G40.B09) Patient experienced two episodes of shaking movements during the interview, remained lucid, with nopostictal phase or focal neurological findings; No fever or infectious etiology, and metabolic workup is unremarkable.?? Likely breakthrough seizures.. -- Routine EEG.?? Suggestive of juvenile myoclonic epilepsy.?? No persistent focal asymmetries or seizures occurred. -- Neurology recommended Discontinue Dilantin.?? Started on??Keppra 1500 mg bid -- Continue clobazam and lamotrigine as prescribed -- telemetry monitoring and neurochecks every 4 hours; -- Seizure precautions. --??lorazepam 2 mg IV as needed for seizure activity lasting over 5 minutes. -- Monitor overnight if seizure-free can be discharged tomorrow with a new recommendation. -- Neurology is also recommending for an outpatient THI workup/sleep study??referral.?? Defer to PCP for follow-up. ?? Left eye conjunctivitis Left corneal abrasion??with no vision loss left eye red eye and photophobia ??? Suffered an injury during his seizure episode. -- Antibiotics L eye drops. -- Continue eye patch -- Ophthalmology consult/early appointment??within this week,??if seen as an outpatient. ?? Alcohol use disorder (F10.90):?? Alcohol level negative.??No other signs of withdrawal other than seizure-like activity. Patient??denies recent use??per previous documentation. -- Monitor with CIWA protocol. ??No evidence of withdrawal??since admission. ?? Bipolar disorder (F31.9):??No current SI.??Mood stable. -- C/w Sertraline,??olanzapine, and trazodone as prescribed. -- Continue hydroxyzine as needed for??anxiety. ?? VTE Prophylaxis:??Lovenox 40 mg subcutaneously daily. ?VTE Prophylaxis Assessment:??VTE Prophylaxis Ordered ?? Tobacco Use Treatment:??C/w to Declines NRT at this time.?? Discharge Planning:?discharge tomorrow Code Status:??FULL. ?Order Code Status:??Code Status Ordered OMN:??Monitor overnight on the new AED.?? Discharge tomorrow??if seizure-free. ?? Disclaimer: This dictation was accomplished with use of [employer] voice recognition software, prone tomedical word misidentifications and grammatical errors. The physician does strive to identify and correct these, but some could still be present. Please do not hesitate to contact physician for clarifications.? Consult note * Charisse Zimmerman MD: PERFORM, MODIFY Event Display: Consultation Note Authored Date: [id number] Patient: ??RAND WILKERSON ? Age:??43 Years?Sex:??Male?:??1980?? Chief Complaint/Reason for Consult From home after a seizure, pt was found in the corner of dining room floor face down complaining ofneck pain. unwitnessed History of Present Illness 43-year-old male with past medical history??significant for juvenile myoclonic epilepsy, bipolar disorder, polysubstance abuse, alcohol use disorder, and COPD??who was brought to the emergency room this morning after his uncle found him in the living room corner on the floor, [facility], after suspected seizure.?? The patient was conscious and able to speak in full sentences.?? He was able to move all 4 extremities, and did not complain of headache??or??visual changes.?? No reported tongue bite or incontinence. ??There was no report of fever or illness.?? The patient has had multiple previous admissions for recurrent seizure activity, with most recent 12/16/2023 to 12/19/2023 with adjustment of his Clobazam dosing (20 mg bid) per neurology.?? The patient does not really remember the event,??but does state that his uncle found him on the floor. ??He lives with his brother. ?In ED he was conscious but acting strangely throwing arms up, trying to stand and falling back into bed and dropping urine all over floor.?? He was given 1 mg ativan ?? He notes being compliant with meds Denies recent drug use, but has history ?? His Dilantin level was supratherapeutic at 25.1.?? Alcohol level was negative and urine toxicology was only positive for benzos.? UA - ?? He doesn't have a neurologist- used to see Elio who retired. He was on Keppra for many years since age 19??until about 1 month ago and he doesn't know why he was switched except that maybe his levels were too high and he wants to go back.?? He denies behavioral problems with it??He was also on klonopin??1mg ??bid that was switched to clobazam which was then increased as he had recurrent admmissions over last month. He is having increased personal stressors at home. ?? He is on trazodone and melatonin for difficulty falling asleep and staying asleep- used to wake every hour.?? He snores- never had sleep study.?? He has had eneuresis. ?? He fell and hit L eye which is now painful ?? He lives with brother,?? He doesn't drive Physical Exam Vitals & Measurements T:??98.2?F?? HR:??59??(Peripheral)?? RR:??18?? BP:??131/75?? SpO2:??99%?? HT:??180??cm?? WT:??117.4??kg?? BMI:??36.23? General:?In distress about eye; holding hand over L eye- says hurt to have it open; heavy carlos HEENT: ??Normocephalic and atraumatic.?L eye conjunctival redness Skin: ??No hypo- or hyperpigmented regions. Limbs: No deformity or amputation. ??No significant joint swelling or tenderness. Neurologic Examination: Mental Status: ??Alert, oriented, fluent language. ??Normal comprehension and gross fund of knowledge. Cranial Nerves: Visual kramer are full to confrontational testing. ??Pupils are equal, round and reactive to light and accommodation. ??No afferent pupillary defect.?Ocular motility is intact withnormal pursuit and saccadic movements. ??Face is symmetric with no sensory deficits. ??Hearing is intact to finger rub. ??Palate and uvula are midline with intact gag reflex. ??Jaw strength is normal. ??Sternocleidomastoid and trapezius demonstrate full strength. ??Tongue is midline with no weakness, atrophy or fasciculation. ?? Motor: ??Normal muscle bulk and tone. ??Normal range of motion. ??No tremor or other involuntary movements. ??Strength is rated 5/5 in bilateral upper and lower extremities. ?? Sensory: ?? Normal sensation to light touch Reflexes: 2 + and symmetric, downgoing toes bilaterally Coord: FTN intact. Assessment/Plan Assessment:??43-year-old male with past medical history??significant for juvenile myoclonic epilepsy, bipolar disorder, polysubstance abuse, alcohol use disorder, and COPD??presented with seizure andcontinued abnl??behavior in ED that has since resolved.?? He has had increased seizure incidence since??detention keppra was stopped. ?? Juvenile myoclonic epilepsy (G40.B09):??continue clobazam 20 bid continue lamictal 300 bid stop dilantin start keppra 1500 bid.?? giving first??dose now then can continue tonight ?? recommend outpatient THI eval with sleep clinic and [facility] needs to get new neuro- will put in referral ?? Have eye checked for injury and optho followup as needed ?? if continue to be stable can be dc ?? Charisse Zimmerman MD ?? Problem List/Past Medical History Ongoing Alcohol use disorder Bipolar disorder COPD without exacerbation COVID-19 Juvenile myoclonic epilepsy Obese class II Polysubstance abuse Procedure/Surgical History No qualifying data available. Home Medications Albuterol/Ipratropium: 1 puffs, Inhalation, 4 times a day, PRN (Wheezing/Shortness of Breath) Clobazam: 20 mg = 1 tablet, By [...] 300 mg, By Mouth, Daily at bedtime Sertraline: 100 mg, By Mouth, Daily Thiamine: 100 mg = 1 tablet, By Mouth, Daily Trazodone: 50 mg = 1 tablet, By Mouth, Daily at bedtime Allergies cyclobenzaprine erythromycin??(rash) Social History Alcohol Exercise Self assessment: Good condition. Home/Environment Living situation: Home/Independent. Lives with: Mother. Nutrition/Health Diet: Regular. Substance Abuse Use: Past. Type: Cocaine, Heroin, Marijuana. Tobacco Use: 5-9 cigarettes (between 1/4 to 1/2 pack)/day in last 30 days. Interested in cessation: No. He denies any recent ETOH and drugs- says has quit Family History No family history recorded. Lab Results Test Name Test Result Date/Time WBC 5.1 k/mm3 12/25/2023 11:04 EDT RBC 4.78 m/mm3 12/25/2023 11:04 EDT Hgb 14.6 Gm/dL 12/25/2023 11:04 EDT Hct 45.1 % 12/25/2023 11:04 EDT MCV 94.4 femtoliters 12/25/2023 11:04 EDT MCH 30.5 pg 12/25/2023 11:04 EDT MCHC 32.4 Gm/dL 12/25/2023 11:04 EDT Platelet Count 223 k/mm3 12/25/2023 11:04 EDT RDW-SD 47.4 femtoliters 12/25/2023 11:04 EDT MPV 10.7 femtoliters 12/25/2023 11:04 EDT Nucleated RBC (Automated) 0.0 #/100 WBC'S 12/25/2023 11:04 EDT Abs. NRBC 0.0 k/mm3 12/25/2023 11:04 EDT Abs. Neut 2.9 k/mm3 12/25/2023 11:04 EDT Abs. Lymph 1.6 k/mm3 12/25/2023 11:04 EDT Abs. [place] 0.4 k/mm3 12/25/2023 11:04 EDT Abs. Eo 0.2 k/mm3 12/25/2023 11:04 EDT Abs. Baso 0.0 k/mm3 12/25/2023 11:04 EDT Neut % 57.3 % 12/25/2023 11:04 EDT Lymph % 30.4 % 12/25/2023 11:04 EDT [place] % 8.4 % 12/25/2023 11:04 EDT Eos % 3.1 % 12/25/2023 11:04 EDT Baso % 0.4 % 12/25/2023 11:04 EDT Imm Gran 0.4 % 12/25/2023 11:04 EDT Abs. Imm Gran 0.0 k/mm3 12/25/2023 11:04 EDT Hold Lavender Top SPECIMEN DISCARDED AFTER 24 HOURS. 12/26/2023 06:36 EDT Sodium 143 mmol/L 12/25/2023 10:57 EDT Potassium 4.0 mmol/L 12/25/2023 10:57 EDT Chloride 104 mmol/L 12/25/2023 10:57 EDT Bicarbonate Level 27 mmol/L 12/25/2023 10:57 EDT Anion Gap 12 12/25/2023 10:57 EDT Glucose Level 96 mg/dL 12/25/2023 10:57 EDT BUN 17 mg/dL 12/25/2023 10:57 EDT Creatinine-Blood 0.89 mg/dL 12/25/2023 10:57 EDT Estimated GFR Creatinine 110 ML/MIN/1.73 M2 12/25/2023 10:57 EDT Calcium 9.3 mg/dL 12/25/2023 10:57 EDT Protein, Total 7.5 Gm/dL 12/25/2023 10:57 EDT Albumin 4.4 Gm/dL 12/25/2023 10:57 EDT AG Ratio 1.4 12/25/2023 10:57 EDT Alkaline Phosphatase 86 units/L 12/25/2023 10:57 EDT AST (SGOT) 21 units/L 12/25/2023 10:57 EDT ALT (SGPT) 14 units/L 12/25/2023 10:57 EDT Bilirubin, Total 0.3 mg/dL 12/25/2023 10:57 EDT Prolactin 9.4 ng/mL 12/25/2023 10:57 EDT Ethanol, Serum or Plasma NONE DETECTED 12/25/2023 10:57 EDT Dilantin Level 25.1 mg/L 12/25/2023 10:57 EDT Valproic Level <2.8 mg/L 12/25/2023 10:57 EDT Barbiturate Screen, Urine NONE DETECTED 12/25/2023 14:41 EDT Cannabinoid Screen, Urine NONE DETECTED 12/25/2023 14:41 EDT Cocaine Metabolite Screen, Urine NONE DETECTED 12/25/2023 14:41 EDT Benzodiazepine Screen, Urine POSITIVE 12/25/2023 14:41 EDT Amphetamine Screen, Urine NONE DETECTED 12/25/2023 14:41 EDT Opiate Screen, Urine NONE DETECTED 12/25/2023 14:41 EDT Appear/Color, Urine COLORLESS 12/25/2023 14:41 EDT Specific [place], Urine 1.012 12/25/2023 14:41 EDT pH, Urine 7.5 12/25/2023 14:41 EDT Albumin, Urine NEGATIVE 12/25/2023 14:41 EDT Glucose, Urine NEGATIVE 12/25/2023 14:41 EDT Ketones, Urine NEGATIVE 12/25/2023 14:41 EDT Bilirubin, Urine NEGATIVE 12/25/2023 14:41 EDT Hemoglobin, Urine NEGATIVE 12/25/2023 14:41 EDT Nitrite, Urine NEGATIVE 12/25/2023 14:41 EDT Leukocyte, Urine NEGATIVE 12/25/2023 14:41 EDT Urobilinogen NORMAL 12/25/2023 14:41 EDT WBC's, Urine 1 /HPF 12/25/2023 14:41 EDT RBC's, Urine NONE SEEN 12/25/2023 14:41 EDT Squamous Epith <1 /HPF 12/25/2023 14:41 EDT Mucus SLIGHT 12/25/2023 14:41 EDT Hold Urine Culture Testing available 48 hours from time of collection. 12/25/2023 14:41 EDT Est Creatinine Clearance 114.69 mL/min 12/25/2023 18:24 EDT Note * Mary Ann Lundberg RN: PERFORM Event Display: Discharge/Transfer Note Hospital Authored Date: Nursing Discharge Note Entered On: 12/28/2023 11:58 EDT Performed On: 12/28/2023 11:57 EDT by Mary Ann Lundberg RN Nursing Discharge Note 2 Discharge Time : 12/28/2023 11:25 EDT Discharge Level of Care at Discharge : Homehealth/VNA Discharge VNA/Hospice/Home Care([id number]) : Manuel Kohler [phone] Patient Left Unit Via : Wheelchair Patient Accompanied Off Unit with : Responsible adult DC Instructions Provided & Signed by Pt : Yes Patient Understands D/C Instructions : Yes Patient Instructions Discharge Signed : Yes Did Pt have Specialty Bed or Wound Vac : No Mary Ann Lundberg RN - 12/28/2023 11:57 EDT * Robyn De La Cruz MD, Emily: PERFORM Event Display: Discharge/Transfer Note Hospital Authored Date: Patient: ??RAND WILKERSON ? Age:??43 Years?Sex:??Male?:??1980?? Patient Information Discharge Location: D5A Primary Care Physician: Not on Staff, PCP Admit Date/Time: 12/25/23 16:57 Discharge Disposition Discharge Disposition: Home: No Services Discharge Diagnosis Seizure-like activity (R56.9) Juvenile myoclonic epilepsy (G40.B09) Alcohol use disorder (F10.90) Bipolar disorder (F31.9) Fall (W19.XXXA) Neck pain (M54.2) _ Discharge Medications Albuterol/Ipratropium (Combivent Respimat 20 mcg-100 mcg/inh inhalation aerosol)?1?puff(s)?Inhalation?4 times a day?as needed?Wheezing/Shortness of Breath Clobazam (cloBAZam 20 mg oral [...] MOUTH AT BEDTIME IF NEEDED FOR SLEEP Ofloxacin Ophthalmic (ofloxacin 0.3% ophthalmic solution)?2?Drops?Eye, Left?4 times a day?for 10?Days Olanzapine (olanzapine 5 mg oral tablet)?5?Milligram?1?tablet?By Mouth?Daily at bedtime Sertraline (sertraline 50 mg oral tablet)?100?Milligram?By Mouth?Daily Thiamine (Vitamin B1 100 mg oral tablet)?100?Milligram?1?tablet?By Mouth?Daily Trazodone (traZODone 50 mg oral tablet)?50?Milligram?1?tablet?By Mouth?Daily at bedtime Medications Started Keppra, ofloxacin eyedrops Medications Discontinued DIlantin Doses Changed none PCP Follow-Up/Heads-Up PCP follow-up in about 1 to 2 weeks Ophthalmology follow-up??in 2 days Future Appointments Wednesday 3:00 PM EST ?? With: Tanvir NUÑEZ, Camila Chavez Where: [facility] [address] [place] [address], [address] [place], [place] [id number]- Status: Pending Objective 43-year-old male with past medical history??significant for juvenile myoclonic epilepsy, bipolar disorder, polysubstance abuse, alcohol use disorder, and COPD??who was brought to the emergency room this morning after his uncle found him in the living room corner on the floor, [facility], after suspected seizure.?The patient had multiple episodes of attempting to stand up and falling back on the bed, throwing himself and his arms up, while in the ER.??He retained consciousness and was lucid during the events, without obvious postictal phase.?Admission requested for ongoing workup of possible breakthrough seizures. ?? Seizure-like activity (R56.9) ?Grouped with??Juvenile myoclonic epilepsy (G40.B09) Patient experienced two episodes of shaking movements during the interview, remained lucid, with nopostictal phase or focal neurological findings; No fever or infectious etiology, and metabolic workup is unremarkable.?? Likely breakthrough seizures.. -- Routine EEG.?? Suggestive of juvenile myoclonic epilepsy.?? No persistent focal asymmetries or seizures occurred. -- Neurology recommended Discontinue Dilantin.?? Started on??Keppra 1500 mg bid -- Continue clobazam and lamotrigine as prescribed -- Patient remains seizure-free,??medically stable. -- No other precipitating factors identified. ??No evidence of infection. -- No driving per [place] law. -- Advised about alcohol cessation??which can lower threshold and precipitate seizures. ??Patient voiced understanding. -- Neurology is also recommending for an outpatient TIH workup/sleep study??referral.?? Defer to PCP for follow-up. ?? Left eye conjunctivitis Left corneal abrasion??with no vision loss left eye red eye and photophobia ??? Suffered an injury during his seizure episode. -- Antibiotics L eye drops and??Continue eye patch -- Ophthalmology consult as an outpatient.?? Herbert Oakes?12/29/2023 10:20?We have requestedthe office try to obtain PT-1 transport. Please follow up with the office re: transportation. ?? Alcohol use disorder (F10.90):?? Alcohol level negative.??No other signs of withdrawal other than seizure-like activity. Patient??denies recent use??per previous documentation. --??No evidence of withdrawal??since admission. -- Alcohol cessation counseling was given for about 5 minutes.- ?? Bipolar disorder (F31.9):??No current SI.??Mood stable. -- C/w Sertraline,??olanzapine, and trazodone as prescribed. -- Continue hydroxyzine as needed for??anxiety. ?? Disclaimer: This dictation was accomplished with use of [employer] voice recognition software, prone tomedical word misidentifications and grammatical errors. The physician does strive to identify and correct these, but some could still be present. Please do not hesitate to contact physician for clarifications.? Vital Signs?? Temperature:??96.7 DegF??Low (12/28/23 03:00:00) Temperature Route: Temporal (12/28/23 03:00:00) Pulse Rate: 58 bpm (12/28/23 03:00:00) Pulse Rate, Lyin bpm (12/27/23 12:51:00) Systolic Blood Pressure, Lyin mm Hg (12/27/23 12:51:00) Diastolic Blood Pressure, Lyin mm Hg (12/27/23 12:51:00) Pulse Rate, Sittin bpm (12/27/23 12:51:00) Systolic Blood Pressure, Sittin mm Hg (12/27/23 12:51:00) Diastolic Blood Pressure, Sittin mm Hg (12/27/23 12:51:00) Pulse Rate, Standin bpm (12/27/23 12:51:00) Systolic Blood Pressure, Stand[place] mm Hg (12/27/23 12:51:00) Diastolic Blood Pressure, Stand[place] mm Hg (12/27/23 12:51:00) Respiratory Rate: 18 br/min (12/28/23 03:00:00) Systolic Blood Pressure: 111 mm Hg (12/28/23 03:00:00) Diastolic Blood Pressure: 57 mm Hg (12/28/23 03:00:00) Blood pressure sites: Arm, right (12/28/23 03:00:00) Pulse Pressure: 54 mm Hg (12/28/23 03:00:00) Oxygen Saturation: 97 % (12/28/23 03:00:00) Mode of Delivery (Oxygen): Room air (12/28/23 03:00:00) Early Warning Score: 2 (12/28/23 04:23:34) ? . Physical Exam General: NAD. HEENT: moist oral mucosa. PERRLA, EOMI.?? L eye- reddness with??Photophobia- on patch NECK: No JVD. No bruits. Heart: Regular rate. S1 and s2 heard. No murmer, rub or gallop. Lungs: Clear to auscultation. No wheeze, crackles or rhonchi Abdomen : Soft, nondistended, nontender and bowel sounds are active. ??No organomegaly.?? Extremities: No pedal edema, swelling or cyanosis. peripheral pulses 2+ Neurological : grossly non focal. AA0 X3.? Pscy: Mood and affect appropriate.? Consultants Neurology Pending Results Add On Lab Order ordered on 12/25/2023 Add On Lab Order ordered on 12/25/2023 Clobazam Level ordered on 12/26/2023 Patient Education Titles [employer] Patient Education - Safety During a Seizure?? [employer] Patient Education - Epilepsy?? Follow-Up Appointments Added Follow Up ?Time Frame ?Comments Herbert Oakes?12/29/2023 10:20?We have requested the officetry to obtain PT-1 transport. Please follow up with the office re: transportation. PCP Not on Staff Post Discharge Care Diet: ??Regular Diet ?? Activity: ??Ambulate with assistance 3 times a day unless otherwise specified ?? Discharge Prescriptions ?ePrescribed, 12/28/23 7:08:00 EDT Home Health Face to Face ^HomeHealthFTF Results Discharge Labs BLOOD COUNT & DIFF WBC 5.4 k/mm3 ()?? 12/27/2023 06:46 RBC 4.34 m/mm3 (Low)?? 12/27/2023 06:46 Hgb 13.3 Gm/dL (Low)?? 12/27/2023 06:46 Hct 41.0 % ()?? 12/27/2023 06:46 MCV 94.5 femtoliters (High)?? 12/27/2023 06:46 MCH 30.6 pg ()?? 12/27/2023 06:46 MCHC 32.4 Gm/dL (Low)?? 12/27/2023 06:46 Platelet Count 189 k/mm3 ()?? 12/27/2023 06:46 RDW-SD 46.7 femtoliters ()?? 12/27/2023 06:46 MPV 11.0 femtoliters ()?? 12/27/2023 06:46 Nucleated RBC (Automated) 0.0 #/100 WBC'S ()?? 12/27/2023 06:46 Abs. NRBC 0.0 k/mm3 ()?? 12/27/2023 06:46 Abs. Neut 2.9 k/mm3 ()?? 12/25/2023 11:04 Abs. Lymph 1.6 k/mm3 ()?? 12/25/2023 11:04 Abs. [place] 0.4 k/mm3 ()?? 12/25/2023 11:04 Abs. Eo 0.2 k/mm3 ()?? 12/25/2023 11:04 Abs. Baso 0.0 k/mm3 ()?? 12/25/2023 11:04 Neut % 57.3 % ()?? 12/25/2023 11:04 Lymph % 30.4 % ()?? 12/25/2023 11:04 [place] % 8.4 % ()?? 12/25/2023 11:04 Eos % 3.1 % ()?? 12/25/2023 11:04 Baso % 0.4 % ()?? 12/25/2023 11:04 Imm Gran 0.4 % ()?? 12/25/2023 11:04 Abs. Imm Gran 0.0 k/mm3 ()?? 12/25/2023 11:04 ?? CHEM GENERAL Sodium 141 mmol/L ()?? 12/27/2023 06:46 Potassium 5.1 mmol/L ()?? 12/27/2023 06:46 Chloride 106 mmol/L ()?? 12/27/2023 06:46 Bicarbonate Level 21 mmol/L (Low)?? 12/27/2023 06:46 Anion Gap 14 ()?? 12/27/2023 06:46 Glucose Level 73 mg/dL ()?? 12/27/2023 06:46 BUN 17 mg/dL ()?? 12/27/2023 06:46 Creatinine-Blood 0.87 mg/dL ()?? 12/27/2023 06:46 Estimated GFR Creatinine 110 ML/MIN/1.73 M2 ()?? 12/27/2023 06:46 Calcium 8.6 mg/dL ()?? 12/27/2023 06:46 Phosphorus 3.9 mg/dL ()?? 12/27/2023 06:46 Magnesium 1.9 mg/dL ()?? 12/27/2023 06:46 Protein, Total 7.5 Gm/dL ()?? 12/25/2023 10:57 Albumin 4.4 Gm/dL ()?? 12/25/2023 10:57 AG Ratio 1.4 ()?? 12/25/2023 10:57 Alkaline Phosphatase 86 units/L ()?? 12/25/2023 10:57 AST (SGOT) 21 units/L ()?? 12/25/2023 10:57 ALT (SGPT) 14 units/L ()?? 12/25/2023 10:57 Bilirubin, Total 0.3 mg/dL ()?? 12/25/2023 10:57 ? ENDOCRINE/TUMOR MARKER Prolactin 9.4 ng/mL ()?? 12/25/2023 10:57 ? HEME OTHER Hold Lavender Top SPECIMEN DISCARDED AFTER 24 HOURS. ()?? 12/26/2023 06:36 ? TOXICOLOGY/TDM Ethanol, Serum or Plasma NONE DETECTED mg/dL ()?? 12/25/2023 10:57 Dilantin Level 22.5 mg/L (High)?? 12/26/2023 06:36 Valproic Level <2.8 mg/L (Low)?? 12/25/2023 10:57 Barbiturate Screen, Urine NONE DETECTED ()?? 12/25/2023 14:41 Cannabinoid Screen, Urine NONE DETECTED ()?? 12/25/2023 14:41 Cocaine Metabolite Screen, Urine NONE DETECTED ()?? 12/25/2023 14:41 Benzodiazepine Screen, Urine POSITIVE (Abnormal)?? 12/25/2023 14:41 Amphetamine Screen, Urine NONE DETECTED ()?? 12/25/2023 14:41 Opiate Screen, Urine NONE DETECTED ()?? 12/25/2023 14:41 Lamotrigine Level 4.6 ()?? 12/25/2023 11:04 ?? UA/URINALYSIS Appear/Color, Urine COLORLESS ()?? 12/25/2023 14:41 Specific [place], Urine 1.012 ()?? 12/25/2023 14:41 pH, Urine 7.5 ()?? 12/25/2023 14:41 Albumin, Urine NEGATIVE ()?? 12/25/2023 14:41 Glucose, Urine NEGATIVE ()?? 12/25/2023 14:41 Ketones, Urine NEGATIVE ()?? 12/25/2023 14:41 Bilirubin, Urine NEGATIVE ()?? 12/25/2023 14:41 Hemoglobin, Urine NEGATIVE ()?? 12/25/2023 14:41 Nitrite, Urine NEGATIVE ()?? 12/25/2023 14:41 Leukocyte, Urine NEGATIVE ()?? 12/25/2023 14:41 Urobilinogen NORMAL mg/dL ()?? 12/25/2023 14:41 WBC's, Urine 1 /HPF ()?? 12/25/2023 14:41 RBC's, Urine NONE SEEN /HPF ()?? 12/25/2023 14:41 Squamous Epith <1 /HPF ()?? 12/25/2023 14:41 Mucus SLIGHT /LPF ()?? 12/25/2023 14:41 Hold Urine Culture Testing available 48 hours from time of collection. ()?? 12/25/2023 14:41 ?? URINE OTHER Est Creatinine Clearance 117.32 mL/min ()?? 12/27/2023 09:33 ? 45 minutes spent on discharge * Mckenna Rasmussen RN: SIGN, PERFORM, VERIFY Event Display: Case Management Discharge Plan Authored Date: Patient: RAND WILKERSON Age: 43 years Sex: Male : 1980 Associated Diagnoses: None Author: Mckenna Rasmussen RN Discharge Plan Case Management Discharge Plan : Case Management Discharge Plan Data 12/28/2023 10:06 EDT Discharge Level of Care at Discharge Homehealth/VNA Discharge VNA/Hospice/Home Care [facility] [phone] Name of Agency #1 [facility] Categories #1 [facility] Comments #1 [facility] will resume Skilled Nurse services. * Mary Ann Lundberg RN: PERFORM Event Display: Patient Education/Instruction Authored Date: Inpatient Adult Discharge Instructions. [address] [address] Name: RAND WILKERSON : 1980?? Visit: 12/25/2023 16:57?? Current Date: 12/28/2023 09:04 ?? Account: [id number]?? Inpatient Adult Discharge Instructions We would like [...] and their families. Surveys are administered by [employer] ?? If further treatment with your primary care physician or another doctor is recommended, it is important for you to keep the appointment. Call your primary care physician or return to the Emergency Department immediately if your condition worsens, fails to improve, or new symptoms develop. If you need to find a doctor, you can call [facility] for a referral at [phone] or toll free at [phone]) or log in to [email or web address].. ?? [facility], in keeping with [facility] guidance, no longer requires face masks for [...] a health care parvin of your choosing. [employer] is a website that allows you to securely view your medical information including your hospital discharge summary, office visit summaries, medications and follow-up visits. You can also request appointments, renew medications, and request access to your medical information using a health care parvin of your choosing, or just ask a question. You can enroll at [email or web address] or register during your next office visit. You have been discharged from [facility], Patient Care Unit: S3??. If you have any questions regarding these instructions, including results of studies pending, afteryou leave, please call us and we will be happy to assist you 28/09. [facility] Your Care Team Attending Physician Emily Luz MD?? Consulting Providers Emily Luz MD?? Discharging Providers Emily Luz MD Reason for Your Visit From home after a seizure, pt was found in the corner of dining room floor face down complaining ofneck pain. unwitnessed?? Your Diagnosis Seizure-like activity Juvenile myoclonic epilepsy Alcohol use disorder Bipolar disorder Tests Performed Below is a partial list of the tests performed during your hospitalization. You may have had other tests and procedures not included in this list. Please discuss all test results with your provider. Amphetamine Urine Screen Barbiturate Urine Screen Basic Metabolic Panel Benzodiazepine Urine Screen Cannabinoid Urine Screen CBC CBC w/ Differential Cocaine Urine Screen Comprehensive Metabolic Panel Ethanol Level HOLD LAVENDER TUBE Lamotrigine Level Magnesium Level Opiate Screen Urine Phenytoin Total Level Phosphorus Level PROLACTIN Urinalysis w/hold for Urine Culture Valproic Acid Level CT Cervical Spine W/O Contrast CT Head/Brain W/O Contrast Add On Lab Order?? Amphetamine Urine Screen?? Barbiturate Urine Screen?? Basic Metabolic Panel?? Benzodiazepine Urine Screen?? CBC?? CBC w/ Differential?? CT Cervical Spine W/O Contrast?? CT Head/Brain W/O Contrast?? Cannabinoid Urine Screen?? Clobazam Level?? Cocaine Urine Screen?? Comprehensive Metabolic Panel?? Ethanol Level?? Hold Lavender Top Tube (HOLD LAVENDER TUBE)?? Lamotrigine Level?? Magnesium Level?? Opiate Screen Urine?? Phenytoin Total Level?? Phosphorus Level?? Prolactin Level (PROLACTIN)?? Urinalysis w/hold for Urine Culture?? Valproic Acid Level?? Primary Care Provider Not on Staff, PCP?? Advance Directive Health Care Proxy on File Yes - Health Care Proxy Yes - MOLST Discharge Vitals Temperature: 96.9 DegF Height: 180 cm Pulse Rate: 61 bpm Weight: 117.4 kg Respiratory Rate: 18 br/min Body Mass Index:??36.23 kg/m2??Critical Systolic Blood Pressure: 136 mm Hg Body surface area: 2.42 Diastolic Blood Pressure: 63 mm Hg ?? Oxygen Saturation: 98 % ?? Studies Pending All studies ordered during this hospital stay have been completed unless listed below. Please discuss all pending results with your provider listed above in these instructions. ?? Add On Lab Order?? Clobazam Level?? What to do next Instructions From Your Doctor ?? Orders??:Regular Diet :Ambulate with assistance ??3 times a day ??unless otherwise specified?? am keppra. info about opthamology appoitement., ??12/28/23 7:08:00 EDT?? Prescriptions??, ??12/28/23 7:08:00 EDT?? Scheduled Follow-Up Appointments Wednesday 3:00 PM EST ?? With: Tanvir NUÑEZ, Camila Chavez Where: [facility] [address] [facility] 3rd Floor, [address] [place] [address]- Status: Pending You Need to Schedule the Following Appointments Follow Up with??Herbert Oakes When:??12/29/2023 10:20 AM EDT Why: We have requested the office try to obtain PT-1 transport. Please follow up with the office re: transportation. Where: [address] [place] [address] [place] [address]- Business (1) Follow Up with??PCP Not on Staff When:??In 0 days Discharge Medications RAND WILKERSON :1980 Visit Date:12/25/2023 Medications: Please continue your medications until treatment is completed or stopped by your provider. Medications not listed below should be discontinued. Discuss any questions related to medications with your provider. What How Much When Instructions Next Dose New levETIRAcetam (Keppra 1000 mg oral tablet) 1,500 Milligram Oral Twice a day Duration: 30 Days Pickup at [place] [address] 12/27 8p New Ofloxacin Ophthalmic (ofloxacin 0.3% ophthalmic solution) 2 Drops Left eye 4 times a day Duration: 10 Days Pickup at [place] [address] 12/27 12n/5p/9p/9a Changed Clobazam (cloBAZam 20 mg oral tablet) 1 tab(s) Oral Twice a day Duration: 30 Days 12/27 8p Changed Melatonin (Melatonin 3 mg oral tablet) TAKE 2 TABLETS BY MOUTH AT BEDTIME IF NEEDED FOR SLEEP ?? as needed Unchanged Albuterol/ Ipratropium (Combivent Respimat 20 mcg-100 mcg/ inh inhalation aerosol) 1 puff(s) Inhalation 4 times a day as needed for Wheezing/Shortness of Breath as needed Unchanged HydrOXYzine (hydrOXYzine hydrochloride 25 mg oral tablet) 1 tab(s) Oral 4 times a day as needed for for anxiety as needed Unchanged Ibuprofen (Motrin Tablet) 600 Milligram Oral 3 times a day with meals as needed Unchanged Lamotrigine (lamotrigine 150 mg oral tablet) 2 tablets Oral Twice a day 12/27 8p Unchanged Olanzapine (olanzapine 5 mg oral tablet) 1 tab(s) Oral Daily at Bedtime 12/27 at bedtime Unchanged Sertraline (sertraline 50 mg oral tablet) 100 Milligram Oral Daily 12/28 AM Unchanged Thiamine (Vitamin B1 100 mg oral tablet) 1 tab(s) Oral Daily 12/28 AM Unchanged Trazodone (traZODone 50 mg oral tablet) 1 tab(s) Oral Daily at Bedtime 12/27 at bedtime Pharmacy Information [facility] 3: [address] [place], [place] [id number] [phone] ?? What How Much When Comments Stop Taking Folic Acid (folic acid 1 mg oral tablet) 1 tab(s) Oral Daily Stop Taking Phenytoin (phenytoin 200 mg oral capsule, extended release) 200 Milligram Oral Daily in the morning Stop Taking Phenytoin (phenytoin 300 mg oral capsule, extended release) 300 Milligram Oral Daily at Bedtime Stop Taking Polyethylene Glycol 3350 (MiraLax oral powder for reconstitution) 17 gram Oral Daily Prescription Given During Visit Ofloxacin Ophthalmic (ofloxacin 0.3% ophthalmic solution) - 2 drops, Eye, Left, 4 times a day, # 10mL, 0 Refills, [facility] [address], [address] [place] [address] [phone]?? levETIRAcetam (Keppra 1000 mg oral tablet) - 1,500 mg, By Mouth, 2 times a day, # 90 tablet, 0 Refills, [facility] [address], [address] [place] [address] [phone]?? Laboratory Results Below is a partial list of the most recent Laboratory test results done prior to this discharge. You may have had other tests and procedures not included in this list. Please discuss all test resultswith your provider. Est Creatinine Clearance - 117.32 mL/min (12/27/2023) Amphetamine Urine Screen (12/25/2023) ???Amphetamine Screen, Urine - NONE DETECTED Barbiturate Urine Screen (12/25/2023) ???Barbiturate Screen, Urine - NONE DETECTED Basic Metabolic Panel (12/27/2023) ???Sodium - 141 mmol/L???Potassium - 5.1 mmol/L???Chloride - 106 mmol/L???Bicarbonate Level - 21 mmol/L???Anion Gap - 14???Glucose Level - 73 mg/dL???BUN - 17 mg/dL???Creatinine-Blood - 0.87 mg/dL???Estimated GFR Creatinine - 110 ML/MIN/1.73 M2???Calcium - 8.6 mg/dL Benzodiazepine Urine Screen (12/25/2023) ???Benzodiazepine Screen, Urine - POSITIVE Cannabinoid Urine Screen (12/25/2023) ???Cannabinoid Screen, Urine - NONE DETECTED CBC (12/27/2023) ???WBC - 5.4 k/mm3???RBC - 4.34 m/mm3???Hgb - 13.3 Gm/dL???Hct - 41.0 %???MCV - 94.5 femtoliters???MCH - 30.6 pg???MCHC - 32.4 Gm/dL???Platelet Count - 189 k/mm3???RDW-SD - 46.7 femtoliters???MPV - 11.0 femtoliters???Nucleated RBC (Automated) - 0.0 #/100 WBC'S???Abs. NRBC - 0.0 k/mm3 CBC w/ Differential (12/25/2023) ???WBC - 5.1 k/mm3???RBC - 4.78 m/mm3???Hgb - 14.6 Gm/dL???Hct - 45.1 %???MCV - 94.4 femtoliters???MCH - 30.5 pg???MCHC - 32.4 Gm/dL???Platelet Count - 223 k/mm3???RDW-SD - 47.4 femtoliters???MPV - 10.7 femtoliters???Nucleated RBC (Automated) - 0.0 #/100 WBC'S???Abs. NRBC - 0.0 k/mm3???Abs. Neut - 2.9 k/mm3???Abs. Lymph - 1.6 k/mm3???Abs. [place] - 0.4 k/mm3???Abs. Eo - 0.2 k/mm3???Abs. Baso - 0.0 k/mm3???Neut % - 57.3 %???Lymph % - 30.4 %???[place] % - 8.4 %???Eos % - 3.1 %???Baso % - 0.4 %???Imm Gran - 0.4 %???Abs. Imm Gran - 0.0 k/mm3 Cocaine Urine Screen (12/25/2023) ???Cocaine Metabolite Screen, Urine - NONE DETECTED Comprehensive Metabolic Panel (12/25/2023) ???Sodium - 143 mmol/L???Potassium - 4.0 mmol/L???Chloride - 104 mmol/L???Bicarbonate Level - 27 mmol/L???Anion Gap - 12???Glucose Level - 96 mg/dL???BUN - 17 mg/dL???Creatinine-Blood - 0.89 mg/dL???Estimated GFR Creatinine - 110 ML/MIN/1.73 M2???Calcium - 9.3 mg/dL???Protein, Total - 7.5 Gm/dL???Albumin - 4.4 Gm/dL???AG Ratio - 1.4???Alkaline Phosphatase - 86 units/L???AST (SGOT) - 21 units/L???ALT (SGPT) - 14 units/L???Bilirubin, Total - 0.3 mg/dL Ethanol Level (12/25/2023) ???Ethanol, Serum or Plasma - NONE DETECTED HOLD LAVENDER TUBE (12/26/2023) ???Hold Lavender Top - SPECIMEN DISCARDED AFTER 24 HOURS. Lamotrigine Level (12/25/2023) ???Lamotrigine Level - 4.6 Magnesium Level (12/27/2023) ???Magnesium - 1.9 mg/dL Opiate Screen Urine (12/25/2023) ???Opiate Screen, Urine - NONE DETECTED Phenytoin Total Level (12/26/2023) ???Dilantin Level - 22.5 mg/L Phosphorus Level (12/27/2023) ???Phosphorus - 3.9 mg/dL PROLACTIN (12/25/2023) ???Prolactin - 9.4 ng/mL Urinalysis w/hold for Urine Culture (12/25/2023) ???Appear/Color, Urine - COLORLESS???Specific [place], Urine - 1.012???pH, Urine - 7.5???Albumin, Urine - NEGATIVE???Glucose, Urine - NEGATIVE???Ketones, Urine - NEGATIVE???Bilirubin, Urine - NEGATIVE???Hemoglobin, Urine - NEGATIVE???Nitrite, Urine - NEGATIVE???Leukocyte, Urine - NEGATIVE???Urobilinogen - NORMAL? ?WBC's, Urine - 1 /HPF? ?RBC's, Urine - NONE SEEN? ?Squamous Epith - <1 /HPF? ?Mucus - SLIGHT???Hold Urine Culture - Testing available 48 hours from time of collection. Valproic Acid Level (12/25/2023) ? ?Valproic Level - <2.8 mg/L You will be contacted within 72 hours with your results. Allergies (NKA means No Known Allergies) cyclobenzaprine erythromycin??(rash) Problems Active Problems??(7) Alcohol use disorder?? Bipolar disorder?? COPD without exacerbation?? COVID-19?? 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 Polysubstance abuse?? Education Materials Below is the list of Educational Leaflet Providered with your Discharge Instructions. [employer] Ignite Patient Education - Safety During a Seizure?? [employer] Patient Education - Epilepsy?? Valuables and Belongings I fully understand and agree that [facility] accepts no responsibility for all my [...] patient Date for Pt to Sign Valuables/Belongings: 12/25/23 19:33:00 ?? Other Discharge Information ? Case Management Discharge Plan?? Discharge Plan?? Discharge Rx Program: Discharge Prescription Program Discharge Rx Program: Discharge Prescription Program ?? Pulmonary Rehab Status?? Pulmonary Rehab Discharge [...] are strongly encouraged to quit. Please call [facility] at [phone] or [phone] ([phone]) or log in to [email or web address] for referrals to smoking cessation programs. ?? 528 Suicide & Crisis Lifeline is available 28/09 if you or someone you know needs to find a reason to keep living. By calling 988 you'll be connected to a skilled, trained counselor at a crisis center in your area. INPATIENT DISCHARGE INSTRUCTIONS SIGNATURE PAGE RAND WILKERSON Location:[facility] Registration Date and Time:12/25/2023 16:57 EDT Primary Care Physician: Not on Staff, PCP Attending Physician: Robyn De La Cruz MD, Emily, I RAND WILKERSON, have received the above patient education materials/instructions and have verbalized understanding. If ambulance or transport services are being used I further acknowledge being given a choice of service. ?? If you need to contact me, please call me at this number: . Patient/Skiver Welt End Name: Patient/Skiver Welt End Signature: Relationship to Patient: Witness Name/Signature: Date: * Emily Luz MD: PERFORM Event Display: Patient Education Leaflets Authored Date: [id number] Safety During a Seizure ?? [address] Safety During a Seizure Safety during a [...] or the person's condition is not known, [id number]. ?? Call 911 Call 911 if any [...] withdrawal ?? Last Reviewed Date: 2021 ?? 9180-1575 [employer]. All rights reserved. This information is not intended as a substitute for professional medical care. Always follow your healthcare professional's instructions. ?? * Robyn eD La Cruz MD, Emily: PERFORM Event Display: Patient Education Leaflets Authored Date: [id number] Epilepsy ?? Epilepsy - Video Epilepsy is a seizure disorder that affects thousands of adults and children. A seizure is when thebrain has a burst of abnormal electrical signals over a short period of time. These signals cause the body and brain to react in certain ways.??This video discusses the causes of epilepsy and??what treatments are available. To view the video go to this web address: [email or web address] Or, scan this QR code with your smart phone Last Reviewed Date: 2019 ?? 4508-3313 [employer]. All rights reserved. This information is not intended as a substitute for professional medical care. Always follow your healthcare professional's instructions. ?? * Nati Felix RN: PERFORM, SIGN, VERIFY Event Display: Patient Education Handout Authored Date: [id number] Patient Care team information Care Team Personnel Name: Gus Mcgraw RN Position: S RN Member Role: Primary Care Nurse Name: Patience Mcpherson RN Position: S RN Member Role: Primary Care Nurse Name: Therese Gross RN Position: [facility] RN Member Role: Primary Care Nurse Name: Isadora Rice RN Position: S RN Member Role: Primary Care Nurse Name: Joseluis Thorpe RN Position: [facility] RN Member Role: Primary Care Nurse Name: Stas Erwin RN Position: [facility] RN Member Role: Primary Care Nurse Name: Valencia Fisher Position: [facility] RN Magy Member Role: Primary Care Nurse Name: Francesco Baca RN Position: [facility] RN Member Role: Primary Care Nurse Name: Angelika Gu RN Position: [facility] RN Member Role: Primary Care Nurse Name: Melanie Sainz RN Position: [facility] RN Member Role: Primary Care Nurse Name: Kavita Polo NP Position: [facility] Associate Professional Member Role: Primary Care Nurse Address: Address: [address] [place] [address] Name: Beau Rhoades RN Position: [facility] RN Member Role: Primary Care Nurse Name: Not on Staff, PCP Position: [facility] Physician (General Medicine) Member Role: PCP Name: Evaristo Huggins RN Position: [facility] RN Member Role: Primary Care Nurse Name: See Chavez RN Position: [facility] [...] Care Nurse Care Team Related Persons Name: BREE JEANNE Address: home [address] [place] [address] Name: CHARITO DOOLEY Address: home [address] [place] [address]
--- OUTSIDE RECORDS SUMMARY | 2024-02-03 15:01 | XMS_ITS | Continuity of Care Document ---
Author Organization [facility] Address [address] [facility], [address] d Floor, [address] [place] [address]- Care Team Providers Care Overhead Irrigator Name Role Phone Not on Staff, PCP Primary Care Physician Unavail able Encounter [facility] Date(s): 09/04/23 - 01/02/24 [facility] [address], [address] [place] [address]- Attending Physician: Marli Neves NP Admitting Physician: Marli Neves NP Allergies, Adverse Reactions, Alerts Substance Reaction Severity [...] 0 Refills, Maintenance, 12/27/23 7:37:00 EDT, Tablet, [facility], Partial fill upon [...] 7:07:00 EDT, 12/28/23 7:07:00 EDT, Ophth Solution, [facility], Partial fill upon patient request if [...] Team Personnel Name: Gus Mcgraw RN Position: [facility] RN Member Role: Primary Care Nurse Name: Patience Mcpherson RN Position: [facility] RN Member Role: Primary Care Nurse Name: Therese Gross RN Position: [facility] RN Member Role: Primary Care Nurse Name: Isadora Rice RN Position: [facility] RN Member Role: Primary Care Nurse Name: Joseluis Thorpe RN Position: S RN Member Role: Primary Care Nurse Name: Stas Erwin RN Position: [facility] RN Member Role: Primary Care Nurse Name: Valencia Fisher Position: [facility] RN Supslick Member Role: Primary Care Nurse Name: Francesco Baca RN Position: [facility] RN Member Role: Primary Care Nurse Name: Angelika Gu RN Position: S RN Member Role: Primary Care Nurse Name: Melanie Sainz RN Position: [facility] RN Member Role: Primary Care Nurse Name: Kavita Polo NP Position: [facility] Associate Professional Member Role: Primary Care Nurse Address: Address: [address] [place] [address]- Name: [place] RN, Beau Ward Position: [facility] RN Member Role: Primary Care Nurse Name: Not on Staff, PCP Position: [facility] Physician (General Medicine) Member Role: PCP Name: Evaristo Huggins RN Position: [facility] RN Member Role: Primary Care Nurse Name: See Chavez RN Position: [facility] RN Member Role: Primary Care Nurse Name: Myke Mcfadden RN Position: [facility] RN Member Role: Primary Care Nurse Name: Monika Marquez RN Position: [facility] RN Member Role: Primary Care Nurse Name: Elaine Reis RN Position: [facility] RN Member Role: Primary Care Nurse Name: Clay Quiñonez RN Position: [facility] RN Member Role: Primary Care Nurse Name: Veronika Dinero LPN Position: [facility] RN Member Role: Primary Care Nurse Name: Paul Ruiz RN Position: [facility] RN Member Role: Primary Care Nurse Care Team Related Persons Name: KAREN GIRONNE Address: home [address] [place] [address] Name: CHARITO DOOLEY Address: home [address] [place] [address]
--- NOTE | 2024-02-03 15:24 | PHA.MEDREC ---
Pharmacy Consult ? Medication Reconciliation Pharmacy has completed the medication reconciliation. Utilized Psychiatric progress note from today. Patient was transferred from . OF NOTE: left phenytonin unconfirmed as it is not on the patients progress note from today nor on any other notes.
[2024-02-03 15:25] LABS: MANUAL DIFF FLAG NO
[2024-02-03 15:30] LABS: Basophils Percent Auto 0.5 % (0-2); Eosinophils Percent Auto 0.5 % (0-4); Hematocrit 38.9 % (42.0-52.0); Hemoglobin 13.2 g/dl (14.0-18.0); Imm Gran Abs Auto 0.02 X10*3/uL (0.00-0.03); Imm Gran Pct Auto 0.3 % (0.0-0.4); Lymphocytes Absolute Auto 0.8 X10*3/uL (1.2-4.9); Lymphocytes Percent Auto 13.1 % (20-40); Mean Corpuscular HGB Conc 33.9 g/dl (31.0-36.0); Mean Corpuscular Hemoglobin 30.3 pg (27.0-33.0); Mean Corpuscular Volume 89.4 fL (80.0-98.0); Mean Platelet Volume 10.5 fL (9.4-12.4); Monocytes Absolute Auto 0.3 X10*3/uL (0.1-1.2); Neutrophils Absolute Auto 4.9 x10*3/uL (2.0-8.3); Neutrophils Percent Auto 80.6 % (45-73); Platelet Count 197 X10*3/uL (160-400); Red Blood Count 4.35 X10*6/uL (4.60-5.80); Red Cell Distribution Width 13.6 % (11.0-16.0)
[2024-02-03] MEDS: Phenytoin Sodium 100 MG/2 ML VIAL IVPUSH ×3 (15:33→20:34)
[2024-02-03] MEDS: LORazepam 2 MG/ML VIAL 1 MG IVPUSH ×2 (15:33→20:28)
[2024-02-03 15:43] LABS: Anion Gap 16 (12-20); Blood Urea Nitrogen 16 mg/dL (9-16); Calcium 8.2 mg/dL (8.4-10.2); Carbon Dioxide 18 mmol/L (22-29); Chloride 110 mmol/L (96-108); Estimated Glomerular Filt Rate > 60; Glucose Random 96 mg/dL (60-115); Magnesium 1.8 mg/dL (1.6-2.6); Potassium 3.6 mmol/L (3.3-5.1); Sodium 140 mmol/L (135-145)
[2024-02-03] MEDS: 0.9 % Sodium Chloride Flush 3 ML SYRINGE IVFLUSH ×2 (15:56→20:29)
--- NOTE | 2024-02-03 17:19 | PM.EVENT ---
Event Note Date of Service: 02/03/24 Event Note: Asked to see patient after sustaining a fall without head strike. Patient previously medicated with Ativan and try to get out of bed himself per staff. Moving all extremities with equal power and will respond to verbal stimuli. Limited exam however appears to be a nonfocal exam. Follow clinically. Discussed with staff Time Spent With Patient Time: Total time managing care of this patient today ____ minutes.
[2024-02-03 17:22] VITALS: BP 168/70; PULSE 70; RESP 16; TEMP 36.8; O2SAT 98
--- NOTE | 2024-02-03 18:17 | PC.NURSE ---
Patient got out of bed and then fell from standing position at 16:29. Fall witnessed by SENIOR SUPPORT ANALYST who denied any headstrike/ LOC. MD and nursing car repair supervisor promptly notified. Patient's post fall vitals are as follows 98.2F, 168/70, 98% RA, 70, and 16. Patient moves all extremities. no further orders at this time
[2024-02-03 20:32] VITALS: BP 174/61; PULSE 87; RESP 18; O2SAT 95
[2024-02-04] VITALS (7 sets, daily range): BP systolic 113–147; BP diastolic 60–81; PULSE 58–84; RESP 16–20; TEMP 36.2–37; O2SAT 94–98; BMI 38.5
[2024-02-04] MEDS: Heparin Sodium,Porcine 5,000 UNIT/ML VIAL 5000 UNIT SUBCUT ×2 (01:11→12:57)
--- NOTE | 2024-02-04 02:56 | PC.NURSE ---
Approx 2025 pt had an seizure which lasted approx 30 seconds. Seizure was his whole body jerking. Ativan administered (see MAR), rapid response called. , respiratory, nursing supervisor word processing, PA bedside. stated if pt seized again he wanted the pt to be transferred to the ICU. informed at the time there were no open ICU beds. Neuro consulted. 1:1 sitter bedside for SI (pt is a transfer from ); seizure pads on bed rails, male purewick in place (pt pulls on and has had to be replaced twice so far this shift). Approx 244 pt began to be able to answer some orientation questions but then stopped. When asked if he was ok he stated he was, just tired and wanted to sleep. 1:1 sitter bedside, camera in room, bed alarm on, call pham within reach.
--- NOTE | 2024-02-04 08:16 | P.PNIM_ITS ---
Subjective Subjective Date of Service: 02/04/24 Review of Systems Follow up transfer from for breakthrough seizure One seizure overnight after Dilantin load Physical Exam 2 Vital Signs: Vital Signs: Last Vital Signs Temp 97.9 F 02/04/24 07:48 Pulse 70 02/04/24 07:48 Resp 18 02/04/24 07:48 BP 121/60 02/04/24 07:48 Pulse Ox 94 02/04/24 07:48 O2 Del Method Room Air 02/04/24 07:48 Appearing in no acute distress lung sounds are clear to auscultation heart regular rate rhythm, clear S1, S2 positive bowel sounds, abdomen is soft, nontender neuro patient is alert x3, no focal deficits Objective Data Active Medications Acetaminophen (Acetaminophen 325 Mg Tablet) 650 mg PO Q6H PRN PRN Reason: Pain, Mild (Pain Scale 1-3), fever or headache Al Hydroxide/Mg Hydroxide (Magnesium Hydrox/Alum Hydrox 30 Ml Oral.Susp) 30 ml PO Q6H PRN PRN Reason: Heartburn/Nausea Albuterol/Ipratropium (Albuterol/Iprat 2.5/0.5mg 3 Ml Ampul.Neb) 3 ml INHALE Q6H PRN PRN Reason: wheezing Calcium Carbonate (Calcium Carbonate 750 Mg Tab.Chew) 750 mg PO Q4H PRN PRN Reason: Heartburn Clobazam (Clobazam 10 Mg Tablet) 15 mg PO BEDTIME [facility] Last Admin: 02/03/24 22:51 Dose: Not Given Documented By: ASHLEY Non-Admin Reason: Pt unable Heparin Sodium (Porcine) (Heparin Sodium,Porcine 5,000 Unit/Ml Vial) 5,000 unit SUBCUT Q12H [facility] Last Admin: 02/04/24 01:11 Dose: 5,000 unit Documented By: ASHLEY Hydroxyzine HCl (Hydroxyzine Hcl 25 Mg Tablet) 25 mg PO Q6H PRN PRN Reason: Anxiety Hydroxyzine HCl (Hydroxyzine Hcl 25 Mg Tablet) 25 mg PO QID [facility] Lamotrigine (Lamotrigine 100 Mg Tablet) 300 mg PO BID [facility] Last Admin: 02/03/24 22:51 Dose: Not Given Documented By: ASHLEY Non-Admin Reason: Pt unable Lorazepam (Lorazepam 2 Mg/Ml Vial) 1 mg IVPUSH Q4H PRN PRN Reason: Seizures Last Admin: 02/03/24 20:28 Dose: 1 mg Documented By: ASHLEY Magnesium Hydroxide (Milk Of Magnesia 30 Ml Oral.Susp) 30 ml PO DAILY PRN PRN Reason: Constipation Melatonin (Melatonin 3 Mg Tablet) 6 mg PO BEDTIME PRN PRN Reason: Insomnia Nicotine (Nicotine 14 Mg Patch.Td24) 14 mg TRANSDERMA DAILY [facility] Nicotine Polacrilex (Nicotine Polacrilex 2 Mg Gum) 2 mg BUCCAL Q2H PRN PRN Reason: Nicotine Cravings Olanzapine (Olanzapine 5 Mg Tablet) 5 mg PO BEDTIME [facility] Phenytoin Sodium (Phenytoin Sodium 100 Mg/2 Ml Vial) 100 mg IVPUSH TID [facility] Last Admin: 02/03/24 20:34 Dose: 100 mg Documented By: ASHLEY Sertraline HCl (Sertraline Hcl 100 Mg Tablet) 100 mg PO DAILY [facility] Sodium Chloride (0.9 % Sodium Chloride Flush 3 Ml Syringe) 3 ml IVFLUSH QSHIFT [facility] Last Admin: 02/03/24 20:29 Dose: 3 ml Documented By: ASHLEY Topiramate (Topiramate 100 Mg Tablet) 100 mg PO BID [facility] Trazodone HCl (Trazodone Hcl 100 Mg Tablet) 100 mg PO BEDTIME [facility] Labs 02/03/24 15:17 02/03/24 15:17 Labs: Laboratory Results - last 24 hr 02/03/24 15:17 MCV 89.4 MCH 30.3 MCHC 33.9 RDW 13.6 Plt Count 197 MPV 10.5 Immature Gran % (Auto) 0.3 Neut % (Auto) 80.6 H Lymph % (Auto) 13.1 L [place] % (Auto) 5.0 Eos % (Auto) 0.5 Baso % (Auto) 0.5 Lymph # (Auto) 0.8 L [place] # (Auto) 0.3 Eos # (Auto) 0.0 Baso # (Auto) 0.0 Abs Immat Gran (auto) 0.02 Absolute Neuts (auto) 4.9 Absolute Nucleated RBC 0.000 Nucleated RBC % (auto) 0.0 Anion Gap 16 Estim Creat Clear Calc TNP Estimated GFR > 60 Random Glucose 96 Calcium 8.2 L D Magnesium 1.8 Total Creatine Kinase 135 Assessment and Plan (1) Bipolar disorder: Status: Acute (2) Breakthrough seizure: Status: Acute Plan 43 year old man with a hx of seizure disorder, epilsepsy and bipolar disorder. He was admitted to [facility] and started having seizure like activity throughout the night and this morning. no tonic clonic seizing noted. no LOC, hemodynamically stable. No fever or chills. Seizure disorder/epilepsy, breakthrough had been on clobazam previous positive EEG Loaded with 1 g of Dilantin, started dilantin TID IV Neurology consultation pending r/o infection>CXR negative for consolidation or effusion, UA pending, labs within normal limits One seizure overnight Alert and oriented this morning Continue seizure precautions Bipolar/mental health continue medications started in [facility] Psych consultation for med management COPD no exacerbation albuterol as needed DVT prophylaxis with heparin Attending Dr. Tiwari Full code Quality Stroke Does the patient have a stroke diagnosis?: No VTE Prior VTE?: No VTE Risk Level:: Medical - moderate - high VTE Device Contraindication: Treatment Not Indicated VTE Drug Contraindication: N/A - Med Ordered
[2024-02-04] MEDS: Nicotine 14 MG PATCH.TD24 TRANSDERMA (08:23)
[2024-02-04] MEDS: Topiramate 100 MG TABLET PO ×2 (08:24→21:21)
[2024-02-04] MEDS: hydrOXYzine HCL 25 MG TABLET PO ×4 (08:24→21:20)
[2024-02-04] MEDS: lamoTRIgine 100 MG TABLET 300 MG PO ×2 (08:24→21:21)
[2024-02-04] MEDS: Sertraline HCL 100 MG TABLET PO (08:24)
[2024-02-04] MEDS: Phenytoin Sodium 100 MG/2 ML VIAL IVPUSH ×3 (08:35→21:18)
[2024-02-04] MEDS: 0.9 % Sodium Chloride Flush 3 ML SYRINGE IVFLUSH ×3 (08:35→21:22)
--- NOTE | 2024-02-04 09:08 | MHC.CM.PN ---
EMR REVIEWED, PT W/SEIZURE VS PSEUDOSEIZURE, CM MET W/PT WHO REPORTS HE LIVES W/HIS BROTHER JAN, IS INDEP W/AMBULATION/CARE, DENIES USE OF DME AND HAS [facility] FOR MED MANAGEMENT, PT REPORTS HE WOULD LIKE TO GO BACK TO [facility] WHEN MEDICALLY CLEARED. PT VERIFIES PCP, EDUCATED ON HOWEVER DECLINES TO COMPLETE A HCP FROM [facility] SW NOTES PT HAS A OUPT CM TOÑO [phone] AT [facility]. PT AND BROTHER JAN HAD VISITED A [facility], HOWEVER THERE WERE ISSUES W/TRANSPORTATION SO TOÑO WAS GOING TO FOLLOW UP W/[facility]. CM WILL FOLLOW UP IF PT IS DISCHARGING HOME AND NOT BACK TO [facility].
[2024-02-04] MEDS: cloBAZam 10 MG TABLET 15 MG PO (21:19)
[2024-02-04] MEDS: traZODone HCL 100 MG TABLET PO (21:20)
[2024-02-04] MEDS: OLANZapine 5 MG TABLET PO (21:21)
[2024-02-05 03:44] VITALS: BP 138/77; PULSE 86; RESP 18; TEMP 36.1; O2SAT 97
[2024-02-05 08:00] VITALS: BP 144/80; PULSE 52; RESP 18; TEMP 36.4; O2SAT 100
[2024-02-05] MEDS: Nicotine 14 MG PATCH.TD24 TRANSDERMA (08:07)
[2024-02-05] MEDS: 0.9 % Sodium Chloride Flush 3 ML SYRINGE IVFLUSH ×3 (08:07→20:29)
[2024-02-05] MEDS: Phenytoin Sodium 100 MG/2 ML VIAL IVPUSH (08:07)
[2024-02-05] MEDS: Acetaminophen 325 MG TABLET 650 MG PO (08:08)
[2024-02-05] MEDS: Topiramate 100 MG TABLET PO ×2 (08:08→20:25)
[2024-02-05] MEDS: Sertraline HCL 100 MG TABLET PO (08:08)
[2024-02-05] MEDS: lamoTRIgine 100 MG TABLET 300 MG PO ×2 (08:08→20:24)
[2024-02-05] MEDS: hydrOXYzine HCL 25 MG TABLET PO ×4 (08:08→20:25)
[2024-02-05 11:57] VITALS: BP 158/85; PULSE 81; RESP 20; TEMP 37; O2SAT 93
--- NOTE | 2024-02-05 11:57 | P.PNIM_ITS ---
Subjective Subjective Date of Service: 02/05/24 Interval History: seen and examined this morning follow up for breakthrough seizure no seizures overnight Review of Systems Review of Systems: Yes all other systems are reviewed and are negative Constitutional Constitutional: Denies chills and Denies fever(s) Cardiovascular Cardiovascular: Denies chest pain, Denies palpitations and Denies dyspnea Respiratory Respiratory: Denies cough and Denies dyspnea Gastrointestinal Gastrointestinal: Denies abdominal pain, Denies nausea and Denies vomiting Endocrine Endocrine: Denies palpitations Physical Exam 2 Vital Signs: Vital Signs: Last Vital Signs Temp 97.6 F 02/05/24 08:00 Pulse 52 02/05/24 08:00 Resp 18 02/05/24 08:00 BP 144/80 H 02/05/24 08:00 Pulse Ox 100 02/05/24 08:00 O2 Del Method Room Air 02/05/24 08:00 BMI result Body Mass Index 38.5 Const: General: cooperative, alert and awake Nutritional Appearance: obese Orientation/consciousness: patient oriented x3 Resp: Effort & Inspection: normal respiratory effort, able to speak in complete sentences, no respiratory distress and no use of accessory muscles A uscultation: clear to auscultation bilaterally Cardio: Rate: regular rate GI: Inspection: No distended and Yes obesity Palpation (GI): Soft to palpation and nontender Neuro: General: patient oriented x3, moves all extremities and CN's II-XI intact bilaterally Extrem: General: Yes no pedal edema Objective Data Active Medications Acetaminophen (Acetaminophen 325 Mg Tablet) 650 mg PO Q6H PRN PRN Reason: Pain, Mild (Pain Scale 1-3), fever or headache Last Admin: 02/05/24 08:08 Dose: 650 mg Documented By: TONYA Al Hydroxide/Mg Hydroxide (Magnesium Hydrox/Alum Hydrox 30 Ml Oral.Susp) 30 ml PO Q6H PRN PRN Reason: Heartburn/Nausea Albuterol/Ipratropium (Albuterol/Iprat 2.5/0.5mg 3 Ml Ampul.Neb) 3 ml INHALE Q6H PRN PRN Reason: wheezing Calcium Carbonate (Calcium Carbonate 750 Mg Tab.Chew) 750 mg PO Q4H PRN PRN Reason: Heartburn Clobazam (Clobazam 10 Mg Tablet) 15 mg PO BEDTIME [facility] Last Admin: 02/04/24 21:19 Dose: 15 mg Documented By: ASHLEY Heparin Sodium (Porcine) (Heparin Sodium,Porcine 5,000 Unit/Ml Vial) 5,000 unit SUBCUT Q12H [facility] Last Admin: 02/05/24 02:17 Dose: Not Given Documented By: ASHLEY Non-Admin Reason: Patient Asleep Hydroxyzine HCl (Hydroxyzine Hcl 25 Mg Tablet) 25 mg PO Q6H PRN PRN Reason: Anxiety Hydroxyzine HCl (Hydroxyzine Hcl 25 Mg Tablet) 25 mg PO QID [facility] Last Admin: 02/05/24 08:08 Dose: 25 mg Documented By: TONYA Lamotrigine (Lamotrigine 100 Mg Tablet) 300 mg PO BID [facility] Last Admin: 02/05/24 08:08 Dose: 300 mg Documented By: TONYA Lorazepam (Lorazepam 2 Mg/Ml Vial) 1 mg IVPUSH Q4H PRN PRN Reason: Seizures Last Admin: 02/03/24 20:28 Dose: 1 mg Documented By: ASHLEY Magnesium Hydroxide (Milk Of Magnesia 30 Ml Oral.Susp) 30 ml PO DAILY PRN PRN Reason: Constipation Melatonin (Melatonin 3 Mg Tablet) 6 mg PO BEDTIME PRN PRN Reason: Insomnia Nicotine (Nicotine 14 Mg Patch.Td24) 14 mg TRANSDERMA DAILY [facility] Last Admin: 02/05/24 08:07 Dose: 14 mg Documented By: TONYA Nicotine Polacrilex (Nicotine Polacrilex 2 Mg Gum) 2 mg BUCCAL Q2H PRN PRN Reason: Nicotine Cravings Olanzapine (Olanzapine 5 Mg Tablet) 5 mg PO BEDTIME [facility] Last Admin: 02/04/24 21:21 Dose: 5 mg Documented By: ASHLEY Phenytoin Sodium (Phenytoin Sodium 100 Mg/2 Ml Vial) 100 mg IVPUSH TID [facility] Last Admin: 02/05/24 08:07 Dose: 100 mg Documented By: TONYA Sertraline HCl (Sertraline Hcl 100 Mg Tablet) 100 mg PO DAILY [facility] Last Admin: 02/05/24 08:08 Dose: 100 mg Documented By: TONYA Sodium Chloride (0.9 % Sodium Chloride Flush 3 Ml Syringe) 3 ml IVFLUSH QSHIFT [facility] Last Admin: 02/05/24 08:07 Dose: 3 ml Documented By: TONYA Topiramate (Topiramate 100 Mg Tablet) 100 mg PO BID [facility] Last Admin: 02/05/24 08:08 Dose: 100 mg Documented By: TONYA Trazodone HCl (Trazodone Hcl 100 Mg Tablet) 100 mg PO BEDTIME [facility] Last Admin: 02/04/24 21:20 Dose: 100 mg Documented By: ASHLEY Labs 02/03/24 15:17 02/03/24 15:17 Assessment and Plan (1) Breakthrough seizure: Status: Acute Plan This is a 43 year old man with a hx of seizure disorder, epilepsy and bipolar disorder. He was admitted to and started having seizure like activity throughout the night and this morning. no tonic clonic seizing noted. no LOC, hemodynamically stable. No fever or chills. Seizure disorder/epilepsy, breakthrough had been on clobazam, lamotrigine and was previously on dilantin 200 qam and 300 qhs - d/w pharmacy, last picked up 12/14 (c/w low phenytoin level on admission) and was not continued on this inpatient psych admission transferred to the medical floor Loaded with 1 g of Dilantin and started dilantin TID IV no seizures in the past 24 hours. Neurology consultation pending - will likely resume previous medication regimen as breakthrough may be due to medication non-compliance; will discuss with neuro r/o infection>CXR negative for consolidation or effusion, UA pending, labs within normal limits Continue seizure precautions Bipolar/mental health continue medications started in Psych consultation for med management 1:1 sitter for safety - will need care team eval prior to d/c COPD no exacerbation albuterol as needed h/o AUD denies etoh use since and has been inpatient for one week no etoh withdrawal morbid obesity bmi 38.5 weight loss encouraged DVT prophylaxis with heparin Full code Quality Stroke Does the patient have a stroke diagnosis?: No VTE Prior VTE?: No VTE Risk Level:: Medical - moderate - high VTE Device Contraindication: Treatment Not Indicated VTE Drug Contraindication: N/A - Med Ordered
[2024-02-05] MEDS: Heparin Sodium,Porcine 5,000 UNIT/ML VIAL 5000 UNIT SUBCUT (12:43)
[2024-02-05 15:24] VITALS: BP 129/77; PULSE 75; RESP 20; TEMP 36.6; O2SAT 97
[2024-02-05 19:39] VITALS: BP 127/73; PULSE 66; RESP 20; TEMP 36.7; O2SAT 97
[2024-02-05] MEDS: Phenytoin Sodium Extended 100 MG CAPSULE 300 MG PO (20:25)
[2024-02-05] MEDS: traZODone HCL 100 MG TABLET PO (20:25)
[2024-02-05] MEDS: cloBAZam 10 MG TABLET 15 MG PO (20:26)
[2024-02-05] MEDS: OLANZapine 5 MG TABLET PO (20:26)
[2024-02-06] VITALS (7 sets, daily range): BP systolic 111–145; BP diastolic 55–71; PULSE 52–67; RESP 16–20; TEMP 36.3–37.1; O2SAT 96–100
[2024-02-06] MEDS: Phenytoin Sodium Extended 100 MG CAPSULE 200 MG PO (09:16)
[2024-02-06] MEDS: lamoTRIgine 100 MG TABLET 300 MG PO ×2 (09:16→21:34)
[2024-02-06] MEDS: Topiramate 100 MG TABLET PO ×2 (09:16→21:35)
[2024-02-06] MEDS: Sertraline HCL 100 MG TABLET PO (09:16)
[2024-02-06] MEDS: hydrOXYzine HCL 25 MG TABLET PO ×4 (09:16→21:35)
[2024-02-06] MEDS: Nicotine 14 MG PATCH.TD24 TRANSDERMA (09:17)
[2024-02-06] MEDS: 0.9 % Sodium Chloride Flush 3 ML SYRINGE IVFLUSH ×3 (09:21→21:39)
--- NOTE | 2024-02-06 11:23 | HO.PM.IMPN ---
Subjective Subjective Date of Service: 02/06/24 Interval History: seen and examined this morning follow up for seizure no seizure again overnight - pt now saying his dilantin was stopped at [facility] and replaced with something but he doesn't know what medication. no complaints this am Review of Systems Review of Systems: Yes all other systems are reviewed and are negative Constitutional Constitutional: Denies chills and Denies fever(s) Cardiovascular Cardiovascular: Denies chest pain, Denies palpitations and Denies dyspnea Respiratory Respiratory: Denies cough and Denies dyspnea Gastrointestinal Gastrointestinal: Denies abdominal pain, Denies nausea and Denies vomiting Endocrine Endocrine: Denies palpitations Physical Exam Vital Signs: Vital Signs: Last Vital Signs Temp 98.1 F 02/06/24 08:00 Pulse 56 02/06/24 08:00 Resp 18 02/06/24 08:00 BP 145/71 H 02/06/24 08:00 Pulse Ox 100 02/06/24 08:00 O2 Del Method Room Air 02/06/24 08:00 BMI result Body Mass Index 38.5 Const: General: cooperative, alert and awake Nutritional Appearance: obese Orientation/consciousness: patient oriented x3 Resp: Effort & Inspection: normal respiratory effort, able to speak in complete sentences, no respiratory distress and no use of accessory muscles Auscultation: clear to auscultation bilaterally Cardio: Rate: regular rate GI: Inspection: No distended and Yes obesity Palpation (GI): Soft to palpation and nontender Neuro: General: patient oriented x3, moves all extremities and CN's II-XI intact bilaterally Extrem: General: Yes no pedal edema Objective Data Active Medications Acetaminophen (Acetaminophen 325 Mg Tablet) 650 mg PO Q6H PRN PRN Reason: Pain, Mild (Pain Scale 1-3), fever or headache Last Admin: 02/05/24 08:08 Dose: 650 mg Documented By: TONYA Al Hydroxide/Mg Hydroxide (Magnesium Hydrox/Alum Hydrox 30 Ml Oral.Susp) 30 ml PO Q6H PRN PRN Reason: Heartburn/Nausea Albuterol/Ipratropium (Albuterol/Iprat 2.5/0.5mg 3 Ml Ampul.Neb) 3 ml INHALE Q6H PRN PRN Reason: wheezing Calcium Carbonate (Calcium Carbonate 750 Mg Tab.Chew) 750 mg PO Q4H PRN PRN Reason: Heartburn Clobazam (Clobazam 10 Mg Tablet) 15 mg PO BEDTIME [facility] Last Admin: 02/05/24 20:26 Dose: 15 mg Documented By: CLAU Heparin Sodium (Porcine) (Heparin Sodium,Porcine 5,000 Unit/Ml Vial) 5,000 unit SUBCUT Q12H [facility] Last Admin: 02/06/24 01:12 Dose: Not Given Documented By: CLAU Non-Admin Reason: Patient Refused Hydroxyzine HCl (Hydroxyzine Hcl 25 Mg Tablet) 25 mg PO Q6H PRN PRN Reason: Anxiety Hydroxyzine HCl (Hydroxyzine Hcl 25 Mg Tablet) 25 mg PO QID [facility] Last Admin: 02/06/24 09:16 Dose: 25 mg Documented By: SCARLET Lamotrigine (Lamotrigine 100 Mg Tablet) 300 mg PO BID [facility] Last Admin: 02/06/24 09:16 Dose: 300 mg Documented By: SCARLET Lorazepam (Lorazepam 2 Mg/Ml Vial) 1 mg IVPUSH Q4H PRN PRN Reason: Seizures Last Admin: 02/03/24 20:28 Dose: 1 mg Documented By: ASHLEY Magnesium Hydroxide (Milk Of Magnesia 30 Ml Oral.Susp) 30 ml PO DAILY PRN PRN Reason: Constipation Melatonin (Melatonin 3 Mg Tablet) 6 mg PO BEDTIME PRN PRN Reason: Insomnia Nicotine (Nicotine 14 Mg Patch.Td24) 14 mg TRANSDERMA DAILY [facility] Last Admin: 02/06/24 09:17 Dose: 14 mg Documented By: SCARLET Nicotine Polacrilex (Nicotine Polacrilex 2 Mg Gum) 2 mg BUCCAL Q2H PRN PRN Reason: Nicotine Cravings Olanzapine (Olanzapine 5 Mg Tablet) 5 mg PO BEDTIME [facility] Last Admin: 02/05/24 20:26 Dose: 5 mg Documented By: CLAU Phenytoin Sodium (Phenytoin Sodium Extended 100 Mg Capsule) 200 mg PO DAILY [facility] Last Admin: 02/06/24 09:16 Dose: 200 mg Documented By: SCARLET Phenytoin Sodium (Phenytoin Sodium Extended 100 Mg Capsule) 300 mg PO BEDTIME [facility] Last Admin: 02/05/24 20:25 Dose: 300 mg Documented By: CLAU Sertraline HCl (Sertraline Hcl 100 Mg Tablet) 100 mg PO DAILY [facility] Last Admin: 02/06/24 09:16 Dose: 100 mg Documented By: SCARLET Sodium Chloride (0.9 % Sodium Chloride Flush 3 Ml Syringe) 3 ml IVFLUSH QSHIFT [facility] Last Admin: 02/06/24 09:21 Dose: 3 ml Documented By: SCARLET Topiramate (Topiramate 100 Mg Tablet) 100 mg PO BID [facility] Last Admin: 02/06/24 09:16 Dose: 100 mg Documented By: SCARLET Trazodone HCl (Trazodone Hcl 100 Mg Tablet) 100 mg PO BEDTIME [facility] Last Admin: 02/05/24 20:25 Dose: 100 mg Documented By: AVANIDRYAD Labs 02/03/24 15:17 02/03/24 15:17 Assessment and Plan (1) Breakthrough seizure: Status: Acute Plan This is a 43 year old man with a hx of seizure disorder, epilepsy and bipolar disorder. He was admitted to and started having seizure like activity throughout the night and this morning. no tonic clonic seizing noted. no LOC, hemodynamically stable. No fever or chills. Seizure disorder/epilepsy, breakthrough transferred to the medical floor Loaded with 1 g of Dilantin and started dilantin TID IV multiple admissions for the same; records from [facility] reviewed has had at least 3 medical admissions there as well due to breakthrough seizures since his last d/c from here in November; meds were changed on each admission. unclear if patient has been taking meds appropriately as he can't name all the meds he takes for seizures. had been on clobazam, lamotrigine, topomax and initially IV dilatin that was changed to po at previous home regimen (dilantin 200 qam and 300 qhs) no seizures in the past 48 hours. Neurology consultation pending will discuss ultimate plan for meds moving forward r/o infection>CXR negative for consolidation or effusion, UA pending, labs within normal limits Continue seizure precautions Bipolar/mental health continue medications started in [facility] consultation for med management 1:1 sitter for safety - will need care team eval prior to d/c to assess for need to return IP psych floor COPD no exacerbation albuterol as needed h/o AUD denies etoh use since and has been inpatient for one week no etoh withdrawal morbid obesity bmi 38.5 weight loss encouraged DVT prophylaxis with heparin Full code Quality Stroke Does the patient have a stroke diagnosis?: No VTE Prior VTE?: No VTE Risk Level:: Medical - moderate - high VTE Device Contraindication: Treatment Not Indicated VTE Drug Contraindication: N/A - Med Ordered
--- NOTE | 2024-02-06 12:08 | PM.NEUROCN ---
History of Present Illness Data of Consult Service Date: 02/06/24 Primary Care Provider: Matthieu Buenrostro MD HPI Reason for consult: Epilepsy 43 years old unfortunate man with chronic intractable primary generalized epilepsy. Previous EEGs have shown generalize sharp waves and 1 video EEG monitoring at [facility] in 2010 revealed bilateral spike and wave discharges. Over the years he struggled with this diagnosis but also with alcohol abuse. I have not formally seen him in my office for almost 2 years. He has been to [facility] during this time admitted with breakthrough seizures. In the past, he used to take Dilantin with relative success but years ago it was stopped because of dental disease. For a while, he used to take combination of Depakote and Keppra but seizure control was not achieved. More recently when he was admitted here in November, Dilantin was reintroduced. I would noted that he has been to [facility] where multiple changes have been made. He said that he was not seeing any other neurologist on regular basis. He has been living with his brother and I am not sure if he has proper supervision to take medicines on regular basis and to avoid alcohol. This time he was admitted on psychiatric floor for suicidal ideation from where he was transferred to medical floor. When I saw him he was comfortable recognize me right away. Review of Systems Review of Systems: Recent suicidal ideation PMFSH Past Medical History Medical History COPD (chronic obstructive pulmonary disease) Alcohol dependence Bipolar disorder Intractable epilepsy Social History Social History Household Members: Unknown / Unable to assess Household Members Other:: Brothers & uncle Housing: House Do you presently have visiting nurse or other home services: Yes Alcohol intake: current Alcohol intake frequency: holidays/special occasions only Alcohol type: beer and hard liquor Comment: 1:1 sitter Patient Tobacco Use Status: Tobacco use Unknown Tobacco use type: Cigarette Cigarette Packs Per Day: 0.5 Cigarettes Per Day: 15 e-Cigarette/Vaping Use: Never Used Second Hand Smoke Exposure: No Use of substances other than those prescribed or required for medical reasons: Unknown Currently Displaying Signs/Symptoms of Drug Intoxication Withdrawal: No [facility] Practices: none Advance Directives: No Advance Directives Information Provided: No Advance Directives on File: No Suicidal Behavior: Pre-occupation with [place] Symptoms: Anxiety and Impulsivity Access to Firearms: No Do you have a plan to hurt others: No Plan service: No Sexual orientation: Straight/Heterosexual Meds Allergies Allergy/AdvReac Type Severity Reaction Status Date / Time erythromycin base Allergy Unknown UNKNOWN Verified 01/29/24 20:03 [Erythromycin Base] cyclobenzaprine AdvReac Intermediate Other Verified 01/29/24 20:03 [From Flexeril] Active Medications: Current Medications Acetaminophen (Acetaminophen 325 Mg Tablet) 650 mg PO Q6H PRN PRN Reason: Pain, Mild (Pain Scale 1-3), fever or headache Last Admin: 02/05/24 08:08 Dose: 650 mg Al Hydroxide/Mg Hydroxide (Magnesium Hydrox/Alum Hydrox 30 Ml Oral.Susp) 30 ml PO Q6H PRN PRN Reason: Heartburn/Nausea Albuterol/Ipratropium (Albuterol/Iprat 2.5/0.5mg 3 Ml Ampul.Neb) 3 ml INHALE Q6H PRN PRN Reason: wheezing Calcium Carbonate (Calcium Carbonate 750 Mg Tab.Chew) 750 mg PO Q4H PRN PRN Reason: Heartburn Clobazam (Clobazam 10 Mg Tablet) 15 mg PO BEDTIME [facility] Last Admin: 02/05/24 20:26 Dose: 15 mg Heparin Sodium (Porcine) (Heparin Sodium,Porcine 5,000 Unit/Ml Vial) 5,000 unit SUBCUT Q12H [facility] Last Admin: 02/06/24 01:12 Dose: Not Given Hydroxyzine HCl (Hydroxyzine Hcl 25 Mg Tablet) 25 mg PO Q6H PRN PRN Reason: Anxiety Hydroxyzine HCl (Hydroxyzine Hcl 25 Mg Tablet) 25 mg PO QID [facility] Last Admin: 02/06/24 09:16 Dose: 25 mg Lamotrigine (Lamotrigine 100 Mg Tablet) 300 mg PO BID [facility] Last Admin: 02/06/24 09:16 Dose: 300 mg Lorazepam (Lorazepam 2 Mg/Ml Vial) 1 mg IVPUSH Q4H PRN PRN Reason: Seizures Last Admin: 02/03/24 20:28 Dose: 1 mg Magnesium Hydroxide (Milk Of Magnesia 30 Ml Oral.Susp) 30 ml PO DAILY PRN PRN Reason: Constipation Melatonin (Melatonin 3 Mg Tablet) 6 mg PO BEDTIME PRN PRN Reason: Insomnia Nicotine (Nicotine 14 Mg Patch.Td24) 14 mg TRANSDERMA DAILY [facility] Last Admin: 02/06/24 09:17 Dose: 14 mg Nicotine Polacrilex (Nicotine Polacrilex 2 Mg Gum) 2 mg BUCCAL Q2H PRN PRN Reason: Nicotine Cravings Olanzapine (Olanzapine 5 Mg Tablet) 5 mg PO BEDTIME [facility] Last Admin: 02/05/24 20:26 Dose: 5 mg Phenytoin Sodium (Phenytoin Sodium Extended 100 Mg Capsule) 200 mg PO DAILY [facility] Last Admin: 02/06/24 09:16 Dose: 200 mg Phenytoin Sodium (Phenytoin Sodium Extended 100 Mg Capsule) 300 mg PO BEDTIME [facility] Last Admin: 02/05/24 20:25 Dose: 300 mg Sertraline HCl (Sertraline Hcl 100 Mg Tablet) 100 mg PO DAILY [facility] Last Admin: 02/06/24 09:16 Dose: 100 mg Sodium Chloride (0.9 % Sodium Chloride Flush 3 Ml Syringe) 3 ml IVFLUSH QSHIFT [facility] Last Admin: 02/06/24 09:21 Dose: 3 ml Topiramate (Topiramate 100 Mg Tablet) 100 mg PO BID [facility] Last Admin: 02/06/24 09:16 Dose: 100 mg Trazodone HCl (Trazodone Hcl 100 Mg Tablet) 100 mg PO BEDTIME [facility] Last Admin: 02/05/24 20:25 Dose: 100 mg Home Medications ?Medication ?Instructions ?Recorded ?Confirmed ?Last Taken ?Type melatonin 3 mg tablet 6 mg PO BEDTIME PRN Insomnia 02/03/24 02/03/24 Unknown History Physical Exam Vital Signs: Vital Signs: Last Vital Signs Temp 98.1 F 02/06/24 08:00 Pulse 56 02/06/24 08:00 Resp 18 02/06/24 08:00 BP 145/71 H 02/06/24 08:00 Pulse Ox 100 02/06/24 08:00 O2 Del Method Room Air 02/06/24 08:00 BMI result Body Mass Index 38.5 Neuro: Other: He is alert and awake with normal spontaneity of speech fluency comprehension and flat affect. There is no focal weakness. Plantars are flexor. Face is symmetrical. Visual kramer are full. Results Labs 02/03/24 15:17 02/03/24 15:17 Assessment and Plan (1) Intractable epilepsy: Qualifiers: Epilepsy type: generalized idiopathic Status epilepticus: without status epilepticus Qualified Code(s): G40.319 - Generalized idiopathic epilepsy and epileptic syndromes, intractable, without status epilepticus Status: Acute 43 years old man with chronic intractable epilepsy probably of primary generalized type resulting in tonic-clonic seizures. This type of epilepsy is not easy to treat and seldom reaches full control. In addition, he has tendency to drink alcohol resulting in further complications from alcohol and from lack of compliance with antiseizure medicines. For now, I would continue present regimen of medications including Dilantin, lamotrigine, clobazam, and topiramate. vice president of consulting services should look at his residential situation and maybe he should be moved to more supervised type of setting such as correction. It is important that he does not drink and takes his medicines on regular basis. Procedures Date of Service Date of Service: 02/06/24
[2024-02-06] MEDS: Heparin Sodium,Porcine 5,000 UNIT/ML VIAL 5000 UNIT SUBCUT (15:17)
--- NOTE | 2024-02-06 17:21 | P.DS_ITS ---
DS: Providers Provider Date of admission: 02/03/24 14:57 Primary care physician: Matthieu Buenrostro MD Consults: 02/03/24 13:45 Consult to Neurology Routine Consulting Provider: [facility] Reason for consultation: seizure vs pseudoseizure 02/04/24 08:30 Consult to Psychiatry Routine Consulting Provider: [facility] Psych Covering Reason for consultation: Transfer from , medication management 02/06/24 12:44 Consult to Care Team Routine Comment: Reason for consultation: medically cleared; from ; LOC DS: Diagnosis Discharge Diagnosis (1) Intractable epilepsy: Status: Acute DS: Summary Hospital Course Hospital Course: From H&P on the day of admission 43 year old man with a hx of seizure disorder, epilsepsy and bipolar disorder. He was admitted to and started having seizure like activity throughout the night and this morning. no tonic clonic seizing noted. no LOC, hemodynamically stable. No fever or chills. Seizure disorder/epilepsy with breakthrough seizure. transferred to the medical floor, Loaded with 1 g of Dilantin and started dilantin TID IV. patient has had multiple admissions for the same; records from [facility] [place] has had at least 3 medical admissions there as well due to [facility] seizures since his last d/c from here in November. meds were changed on each admission. He reports being compliant with meds unclear if patient has been taking meds appropriately as he can't name all the meds he takes for seizures. COntinue on clobazam, lamotrigine, topomax and initially IV dilatin that was changed to po at previous home regimen (dilantin 200 qam and 300 qhs). no seizures in the past 48 hours. Seen by neurology, recommend to continue current medication regimen. No evidence of infection>CXR negative for consolidation or effusion, UA pending, labs within normal limits. no need for repeat EEG as patient know to have longstanding history of epilepsy. unclear how well patient is managing in the community, will need VNA upon discharge to assist with medication management. Time Attestation Discharge Coordination Time (in mins): 40 Quality: Safe Use of Opioids Does Pt have an Active Cancer Diagnosis on the Problem List?: No Quality: Stroke Does the patient have a stroke diagnosis?: No Physical Exam Vital Signs: Vital Signs: Last Vital Signs Temp 98.2 F 02/06/24 16:00 Pulse 62 02/06/24 16:00 Resp 18 02/06/24 16:00 BP 129/66 02/06/24 16:00 Pulse Ox 96 02/06/24 16:00 O2 Del Method Room Air 02/06/24 16:00 BMI result Body Mass Index 38.5 Const: General: cooperative, alert and awake Nutritional Appearance: obese Orientation/consciousness: patient oriented x3 Resp: Effort & Inspection: normal respiratory effort, able to speak in complete sentences, no respiratory distress and no use of accessory muscles Auscultation: clear to auscultation bilaterally Cardio: Rate: regular rate GI: Inspection: No distended and Yes obesity Palpation (GI): Soft to palpation and nontender Neuro: General: patient oriented x3, moves all extremities and CN's II-XI intact bilaterally Extrem: General: Yes no pedal edema Discharge Plan Discharge Patient Disposition: Xfer Psychiatric Hosp Discharge Diagnosis: breakthrough seizure Referrals: Name,MD Matthieu [Primary Care Provider] - 1 Week Discharge Medications: No Action ipratropium-albuterol 0.5 mg-3 mg(2.5 mg base)/3 mL Solution For Nebulization 3 ml inhalation Q6H PRN (Reason: wheezing) Qty: 0 0RF acetaminophen 325 mg Tablet 650 mg PO Q6H PRN (Reason: Headache/Pain Mild Scale (1-3)) Qty: 0 0RF nicotine 14 mg/24 hr Patch 24 Hour 14 mg transdermal DAILY Qty: 0 0RF nicotine (polacrilex) 2 mg Gum 2 mg buccal Q2H PRN (Reason: Nicotine Cravings) Qty: 0 0RF sertraline 100 mg Tablet 100 mg PO DAILY Qty: 0 0RF olanzapine 5 mg Tablet 5 mg PO BEDTIME Qty: 0 0RF phenytoin sodium extended [Dilantin Extended] 100 mg Capsule 100 mg PO TID Qty: 0 0RF magnesium hydroxide [Milk of Magnesia] 400 mg/5 mL Suspension 30 ml PO DAILY PRN (Reason: Constipation) Qty: 0 0RF trazodone 100 mg Tablet 100 mg PO BEDTIME Qty: 0 0RF hydroxyzine HCl 25 mg Tablet 25 mg PO Q6H PRN (Reason: Anxiety) Qty: 0 0RF hydroxyzine HCl 25 mg Tablet 25 mg PO QID Qty: 0 0RF topiramate 100 mg Tablet 100 mg PO BID Qty: 0 0RF lamotrigine 100 mg Tablet 300 mg PO BID Qty: 0 0RF MAG-AL 200-200 mg/5 mL Suspension 30 ml PO Q6H PRN (Reason: Heartburn/Nausea) Qty: 0 0RF clobazam 10 mg Tablet 15 mg PO BEDTIME Qty: 0 0RF melatonin 3 mg Tablet 6 mg PO BEDTIME PRN (Reason: Insomnia) Activity on Discharge: As tolerated Stand Alone Forms: Patient Portal Discharge page Print Language: Albanian Care Plan Goals: see below Health Concerns: breakthrough seizure Plan of Treatment: continue current seizure meds - clobazam, lamictal, topamax, dilantin - take all as prescribed outpatient follow up with primarily neurologist return to for ongoing psychiatric care Assessment: see discharge summary
[2024-02-06] MEDS: cloBAZam 10 MG TABLET 15 MG PO (21:34)
[2024-02-06] MEDS: traZODone HCL 100 MG TABLET PO (21:35)
[2024-02-06] MEDS: Phenytoin Sodium Extended 100 MG CAPSULE 300 MG PO (21:35)
[2024-02-06] MEDS: OLANZapine 5 MG TABLET PO (21:35)
[2024-02-06] MEDS: Acetaminophen 325 MG TABLET 650 MG PO (21:38)
[2024-02-07 04:00] VITALS: BP 141/65; PULSE 58; RESP 18; TEMP 36.3; O2SAT 95
[2024-02-07 08:00] VITALS: BP 135/73; PULSE 61; RESP 15; TEMP 36.7; O2SAT 98
--- NOTE | 2024-02-07 08:38 | MHC.CM.PN ---
ANTIC PT WILL BE MEDICALLY CLEARED FOR DC , PER HOSPITALIST PLAN IS TO DC TO [facility].
--- NOTE | 2024-02-07 09:24 | HO.PM.IMPN ---
Subjective Subjective Date of Service: 02/07/24 Interval History: follow up visit, no complaints reports feeling better, including improvements to mood, denies any SI/HI/AH/VH states I have a home now Review of Systems Review of Systems: Yes all other systems are reviewed and are negative Cardiovascular Cardiovascular: Reports as per HPI Neurologic Neurologic: Reports as per HPI Psychiatric Psychiatric: Reports as per HPI Physical Exam Vital Signs: Vital Signs: Last Vital Signs Temp 98.1 F 02/07/24 08:00 Pulse 61 02/07/24 08:00 Resp 15 02/07/24 08:00 BP 135/73 02/07/24 08:00 Pulse Ox 98 02/07/24 08:00 O2 Del Method Room Air 02/07/24 08:00 BMI result Body Mass Index 38.5 Const: General: cooperative, comfortable, no acute distress, alert and awake Nutritional Appearance: overweight Orientation/consciousness: patient oriented x3 Limitations: no limitations Resp: Effort & Inspection: normal respiratory effort Auscultation: clear to auscultation bilaterally Cardio: Jugular venous distension: no JVD Rate: regular rate Rhythm: regular rhythm Heart sounds: S1 normal heart sound present and S2 normal heart sound present GI: Inspection: Yes normal to inspection Percussion: Yes normal to percussion Auscultation: normal bowel sounds Neuro: General: patient oriented x3 Cranial nerves: Yes CN's II-XII intact bilaterally, Yes Bilaterally intact EOM present and Yes Ability to bilaterally rotate head present Cognition (Neuro): normal cognition Motor exam (neuro): 5/5 motor strength present throughout Psych: Appearance: grossly normal Mental Status: mental status grossly normal Speech and movement: Normal speech and movement present Attitude: cooperative Thought process: Normal thought process present Thought content: Normal thought content present Objective Data Active Medications Acetaminophen (Acetaminophen 325 Mg Tablet) 650 mg PO Q6H PRN PRN Reason: Pain, Mild (Pain Scale 1-3), fever or headache Last Admin: 02/06/24 21:38 Dose: 650 mg Documented By: ASHLEY Al Hydroxide/Mg Hydroxide (Magnesium Hydrox/Alum Hydrox 30 Ml Oral.Susp) 30 ml PO Q6H PRN PRN Reason: Heartburn/Nausea Albuterol/Ipratropium (Albuterol/Iprat 2.5/0.5mg 3 Ml Ampul.Neb) 3 ml INHALE Q6H PRN PRN Reason: wheezing Calcium Carbonate (Calcium Carbonate 750 Mg Tab.Chew) 750 mg PO Q4H PRN PRN Reason: Heartburn Clobazam (Clobazam 10 Mg Tablet) 15 mg PO BEDTIME [facility] Last Admin: 02/06/24 21:34 Dose: 15 mg Documented By: ASHLEY Heparin Sodium (Porcine) (Heparin Sodium,Porcine 5,000 Unit/Ml Vial) 5,000 unit SUBCUT Q12H [facility] Last Admin: 02/07/24 03:44 Dose: Not Given Documented By: ASHLEY Non-Admin Reason: Patient Asleep Hydroxyzine HCl (Hydroxyzine Hcl 25 Mg Tablet) 25 mg PO Q6H PRN PRN Reason: Anxiety Hydroxyzine HCl (Hydroxyzine Hcl 25 Mg Tablet) 25 mg PO QID [facility] Last Admin: 02/06/24 21:35 Dose: 25 mg Documented By: ASHLEY Lamotrigine (Lamotrigine 100 Mg Tablet) 300 mg PO BID [facility] Last Admin: 02/06/24 21:34 Dose: 300 mg Documented By: ASHLEY Lorazepam (Lorazepam 2 Mg/Ml Vial) 1 mg IVPUSH Q4H PRN PRN Reason: Seizures Last Admin: 02/03/24 20:28 Dose: 1 mg Documented By: ASHLEY Magnesium Hydroxide (Milk Of Magnesia 30 Ml Oral.Susp) 30 ml PO DAILY PRN PRN Reason: Constipation Melatonin (Melatonin 3 Mg Tablet) 6 mg PO BEDTIME PRN PRN Reason: Insomnia Nicotine (Nicotine 14 Mg Patch.Td24) 14 mg TRANSDERMA DAILY [facility] Last Admin: 02/06/24 09:17 Dose: 14 mg Documented By: SCARLET Nicotine Polacrilex (Nicotine Polacrilex 2 Mg Gum) 2 mg BUCCAL Q2H PRN PRN Reason: Nicotine Cravings Olanzapine (Olanzapine 5 Mg Tablet) 5 mg PO BEDTIME [facility] Last Admin: 02/06/24 21:35 Dose: 5 mg Documented By: ASHLEY Phenytoin Sodium (Phenytoin Sodium Extended 100 Mg Capsule) 200 mg PO DAILY [facility] Last Admin: 02/06/24 09:16 Dose: 200 mg Documented By: SCARLET Phenytoin Sodium (Phenytoin Sodium Extended 100 Mg Capsule) 300 mg PO BEDTIME [facility] Last Admin: 02/06/24 21:35 Dose: 300 mg Documented By: ASHLEY Sertraline HCl (Sertraline Hcl 100 Mg Tablet) 100 mg PO DAILY [facility] Last Admin: 02/06/24 09:16 Dose: 100 mg Documented By: SCARLET Sodium Chloride (0.9 % Sodium Chloride Flush 3 Ml Syringe) 3 ml IVFLUSH QSHIFT [facility] Last Admin: 02/06/24 21:39 Dose: 3 ml Documented By: ASHLEY Topiramate (Topiramate 100 Mg Tablet) 100 mg PO BID [facility] Last Admin: 02/06/24 21:35 Dose: 100 mg Documented By: ASHLEY Trazodone HCl (Trazodone Hcl 100 Mg Tablet) 100 mg PO BEDTIME [facility] Last Admin: 02/06/24 21:35 Dose: 100 mg Documented By: ASHLEY Labs 02/03/24 15:17 02/03/24 15:17 Assessment and Plan (1) Breakthrough seizure: Status: Acute Plan This is a 43 year old man with a hx of seizure disorder, epilepsy and bipolar disorder. He was admitted to and started having seizure like activity throughout the night and this morning. no tonic clonic seizing noted. no LOC, hemodynamically stable. No fever or chills. Seizure disorder/epilepsy, breakthrough no seizures in the past 48 hours. Neurology consulted, recommended no changes and to continue current regimen Continue seizure precautions Bipolar/mental health continue medications started in Psych consultation for med management 1:1 sitter for safety - will need care team eval prior to d/c to assess for need to return IP psych floor COPD no exacerbation albuterol as needed h/o AUD denies etoh use since [facility] and has been inpatient for one week no etoh withdrawal morbid obesity bmi 38.5 weight loss encouraged DVT prophylaxis with heparin Full code Attending Dr. Tiwari Quality Stroke Does the patient have a stroke diagnosis?: No VTE Prior VTE?: No VTE Risk Level:: Medical - moderate - high VTE Device Contraindication: Treatment Not Indicated VTE Drug Contraindication: N/A - Med Ordered
[2024-02-07] MEDS: hydrOXYzine HCL 25 MG TABLET PO ×2 (09:51→13:34)
[2024-02-07] MEDS: Nicotine 14 MG PATCH.TD24 TRANSDERMA (09:51)
[2024-02-07] MEDS: Phenytoin Sodium Extended 100 MG CAPSULE 200 MG PO (09:51)
[2024-02-07] MEDS: Sertraline HCL 100 MG TABLET PO (09:51)
[2024-02-07] MEDS: Topiramate 100 MG TABLET PO (09:51)
[2024-02-07] MEDS: lamoTRIgine 100 MG TABLET 300 MG PO (09:51)
[2024-02-07] MEDS: 0.9 % Sodium Chloride Flush 3 ML SYRINGE IVFLUSH (09:54)
--- NOTE | 2024-02-07 10:43 | P.DS_ITS ---
DS: Providers Provider Date of Service: 02/07/24 Date of admission: 02/03/24 14:57 Primary care physician: Matthieu Buenrostro MD Consults: 02/03/24 13:45 Consult to Neurology Routine Consulting Provider: [facility] Reason for consultation: seizure vs pseudoseizure 02/04/24 08:30 Consult to Psychiatry Routine Consulting Provider: [facility] Psych Covering Reason for consultation: Transfer from , medication management 02/06/24 12:44 Consult to Care Team Routine Comment: Reason for consultation: medically cleared; from ; LOC DS: Diagnosis Discharge Diagnosis (1) Breakthrough seizure: Status: Acute DS: Summary Hospital Course Hospital Course: From H&P on the day of admission 43 year old man with a hx of seizure disorder, epilsepsy and bipolar disorder. He was admitted to and started having seizure like activity throughout the night and this morning. no tonic clonic seizing noted. no LOC, hemodynamically stable. No fever or chills. Seizure disorder/epilepsy with breakthrough seizure. transferred to the medical floor, Loaded with 1 g of Dilantin and started dilantin TID IV. patient has had multiple admissions for the same; records from [facility] reviewed has had at least 3 medical admissions there as well due to breakthrough seizures since his last d/c from here in November. meds were changed on each admission. He reports being compliant with meds unclear if alonzo coates has been taking meds appropriately as he can't name all the meds he takes for seizures. COntinue on clobazam, lamotrigine, topomax and initially IV dilatin that was changed to po at previous home regimen (dilantin 200 qam and 300 qhs). no seizures in the past 48 hours. Seen by neurology, recommend to continue current medication regimen. No evidence of infection>CXR negative for consolidation or effusion, UA pending, labs within normal limits. no need for repeat EEG as patient know to have longstanding history of epilepsy. unclear how well patient is managing in the community, will need VNA upon discharge to assist with medication management. Time Attestation Discharge Coordination Time (in mins): 37 Quality: Safe Use of Opioids Does Pt have an Active Cancer Diagnosis on the Problem List?: No Quality: Stroke Does the patient have a stroke diagnosis?: No Physical Exam Vital Signs: Vital Signs: Last Vital Signs Temp 98.1 F 02/07/24 08:00 Pulse 61 02/07/24 08:00 Resp 15 02/07/24 08:00 BP 135/73 02/07/24 08:00 Pulse Ox 98 02/07/24 08:00 O2 Del Method Room Air 02/07/24 08:00 BMI result Body Mass Index 38.5 Appearing in no acute distress head is normocephalic atraumatic eyes pupils are PERRLA sclera is anicteric mouth throat mucous membranes are intact and moist neck is supple no lymphadenopathy, no JVD noted lung sounds are clear to auscultation heart regular rate rhythm, clear S1, S2 positive bowel sounds, abdomen is soft, nontender neuro patient is alert x3, no focal deficits Discharge Plan Discharge Anticipated Discharge Date/Time: 02/07/24 13:00 Patient Disposition: Xfer Psychiatric Hosp Discharge Diagnosis: breakthrough seizure Referrals: Name,MD Matthieu [Primary Care Provider] - 1 Week Discharge Medications: New phenytoin sodium extended [Dilantin Extended] 100 mg Capsule 300 mg PO BEDTIME Qty: 90 0RF phenytoin sodium extended [Dilantin Extended] 100 mg Capsule 200 mg PO DAILY Qty: 60 0RF Continued ipratropium-albuterol 0.5 mg-3 mg(2.5 mg base)/3 mL Solution For Nebulization 3 ml inhalation Q6H PRN (Reason: wheezing) Qty: 0 0RF acetaminophen 325 mg Tablet 650 mg PO Q6H PRN (Reason: Headache/Pain Mild Scale (1-3)) Qty: 0 0RF nicotine 14 mg/24 hr Patch 24 Hour 14 mg transdermal DAILY Qty: 0 0RF nicotine (polacrilex) 2 mg Gum 2 mg buccal Q2H PRN (Reason: Nicotine Cravings) Qty: 0 0RF sertraline 100 mg Tablet 100 mg PO DAILY Qty: 0 0RF olanzapine 5 mg Tablet 5 mg PO BEDTIME Qty: 0 0RF magnesium hydroxide [Milk of Magnesia] 400 mg/5 mL Suspension 30 ml PO DAILY PRN (Reason: Constipation) Qty: 0 0RF trazodone 100 mg Tablet 100 mg PO BEDTIME Qty: 0 0RF hydroxyzine HCl 25 mg Tablet 25 mg PO Q6H PRN (Reason: Anxiety) Qty: 0 0RF hydroxyzine HCl 25 mg Tablet 25 mg PO QID Qty: 0 0RF topiramate 100 mg Tablet 100 mg PO BID Qty: 0 0RF lamotrigine 100 mg Tablet 300 mg PO BID Qty: 0 0RF MAG-AL 200-200 mg/5 mL Suspension 30 ml PO Q6H PRN (Reason: Heartburn/Nausea) Qty: 0 0RF clobazam 10 mg Tablet 15 mg PO BEDTIME Qty: 0 0RF melatonin 3 mg Tablet 6 mg PO BEDTIME PRN (Reason: Insomnia) Discontinued phenytoin sodium extended [Dilantin Extended] 100 mg Capsule 100 mg PO TID Qty: 0 0RF Discharge Orders: Discharge Order (Routine); Ordered 02/07/24 Ordered By: Deanne Schulte Diet: Advance to usual diet Activity on Discharge: As tolerated Stand Alone Forms: Patient Portal Discharge page Print Language: Cypriot Care Plan Goals: see below Health Concerns: breakthrough seizure Plan of Treatment: continue current seizure meds - clobazam, lamictal, topamax, dilantin - take all as prescribed outpatient follow up with primarily neurologist return to for ongoing psychiatric care Assessment: see discharge summary
[2024-02-07 12:17] VITALS: BP 135/69; PULSE 66; RESP 19; TEMP 36.5; O2SAT 95
[2024-02-07] MEDS: Heparin Sodium,Porcine 5,000 UNIT/ML VIAL 5000 UNIT SUBCUT (13:33)
--- NOTE | 2024-02-07 15:00 | ECG_ITS ---
Test Reason : updated ekg for transfer to Blood Pressure : / mmHG Vent. Rate : 067 BPM Atrial Rate : 067 BPM P-R Int : 180 ms QRS Dur : 102 ms QT Int : 394 ms P-R-T Axes : 026 014 012 degrees QTc Int : 416 ms Normal sinus rhythm Normal ECG When compared with ECG of 30-JAN-2024 11:34, [place] interval has decreased Referred By: Deanne Schulte Electronically Signed By:Rob Trevino
== END 2024-02-07 15:42 | DRG 53 ==
PROVIDERS: Admitting Provider Nurse Practitioner Acute Care; PCP Internal Medicine Geriatric Medicine; Visit Provider Nurse Practitioner Acute Care
DX: G40.319 Generalized idiopathic epilepsy and epileptic syndromes, intractable, without status epilepticus (principal); E66.01 Morbid (severe) obesity due to excess calories; F10.91 Alcohol use, unspecified, in remission; F17.210 Nicotine dependence, cigarettes, uncomplicated; Z68.38 Body mass index [BMI] 38.0-38.9, adult; Z71.3 Dietary counseling and surveillance; J44.9 Chronic obstructive pulmonary disease, unspecified; F31.9 Bipolar disorder, unspecified; Z71.6 Tobacco abuse counseling; Z23 Encounter for immunization; Z79.899 Other long term (current) drug therapy
CPT/HCPCS: 36415; 71045; 80048; 82550; 83735; 85025; 93005; J1165; J1644; J2060

== ENCOUNTER → 2024-02-03 14:57 | Outpatient (BNV) | payer MEDICAID, SELFPAY | PROVIDERS: Admitting Provider Nurse Practitioner Acute Care; PCP Internal Medicine Geriatric Medicine; Visit Provider Psychiatry & Neurology Neurology | DX: G40.319 Generalized idiopathic epilepsy and epileptic syndromes, intractable, without status epilepticus (principal) | CPT/HCPCS: 99222 ==

== ENCOUNTER → 2024-02-03 14:57 | Outpatient (BNV) | payer MEDICAID, SELFPAY | PROVIDERS: Admitting Provider Nurse Practitioner Acute Care; PCP Internal Medicine Geriatric Medicine; Visit Provider Hospitalist | DX: G40.919 Epilepsy, unspecified, intractable, without status epilepticus (principal) | CPT/HCPCS: 99223; 99232; 99239; 99499 ==

== ENCOUNTER 2024-02-07 13:16 | Inpatient (IN) | payer OTHER, SELFPAY ==
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
[2024-02-07] MEDS: hydrOXYzine HCL 25 MG TABLET PO ×2 (18:07→21:10)
[2024-02-07 19:19] VITALS: BMI 38.5
[2024-02-07 19:28] VITALS: BP 142/82; PULSE 73; RESP 16; TEMP 36.2; O2SAT 99
[2024-02-07 20:00] VITALS: BP 139/88; PULSE 66; TEMP 36.9; O2SAT 99
[2024-02-07] MEDS: Melatonin 3 MG TABLET 6 MG PO (21:07)
[2024-02-07] MEDS: Phenytoin Sodium Extended 100 MG CAPSULE 300 MG PO (21:08)
[2024-02-07] MEDS: cloBAZam 10 MG TABLET 15 MG PO (21:09)
[2024-02-07] MEDS: traZODone HCL 100 MG TABLET PO (21:09)
[2024-02-07] MEDS: Topiramate 100 MG TABLET PO (21:10)
[2024-02-07] MEDS: OLANZapine 5 MG TABLET PO (21:10)
[2024-02-07] MEDS: lamoTRIgine 100 MG TABLET 300 MG PO (21:10)
[2024-02-07] MEDS: Flu Vacc TS2024-25(6mos up)/PF 0.5 ML SYRINGE IM (21:11)
[2024-02-08 08:00] VITALS: BP 119/57; PULSE 74; RESP 16; TEMP 36.4; O2SAT 99
[2024-02-08] MEDS: Phenytoin Sodium Extended 100 MG CAPSULE 200 MG PO (08:40)
[2024-02-08] MEDS: lamoTRIgine 100 MG TABLET 300 MG PO ×2 (08:41→20:41)
[2024-02-08] MEDS: Sertraline HCL 100 MG TABLET PO (08:41)
[2024-02-08] MEDS: hydrOXYzine HCL 25 MG TABLET PO ×4 (08:41→20:40)
[2024-02-08] MEDS: Topiramate 100 MG TABLET PO ×2 (08:41→20:40)
[2024-02-08] MEDS: Nicotine 14 MG PATCH.TD24 TRANSDERMA (08:50)
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
[2024-02-08 19:58] VITALS: BP 139/63; PULSE 70; TEMP 36.9; O2SAT 97
[2024-02-08] MEDS: Phenytoin Sodium Extended 100 MG CAPSULE 300 MG PO (20:40)
[2024-02-08] MEDS: traZODone HCL 100 MG TABLET PO (20:40)
[2024-02-08] MEDS: Ibuprofen 600 MG TABLET PO (20:40)
[2024-02-08] MEDS: OLANZapine 5 MG TABLET PO (20:41)
[2024-02-08] MEDS: cloBAZam 10 MG TABLET 15 MG PO (20:47)
[2024-02-08] MEDS: Melatonin 3 MG TABLET 6 MG PO (20:49)
[2024-02-09 07:57] VITALS: BP 132/74; PULSE 53; RESP 16; TEMP 36.3; O2SAT 99
[2024-02-09] MEDS: lamoTRIgine 100 MG TABLET 300 MG PO ×2 (08:19→20:37)
[2024-02-09] MEDS: Topiramate 100 MG TABLET PO ×2 (08:19→20:36)
[2024-02-09] MEDS: Sertraline HCL 100 MG TABLET PO (08:19)
[2024-02-09] MEDS: hydrOXYzine HCL 25 MG TABLET PO ×4 (08:19→20:36)
[2024-02-09] MEDS: Phenytoin Sodium Extended 100 MG CAPSULE 200 MG PO (08:19)
[2024-02-09] MEDS: Ibuprofen 600 MG TABLET PO ×2 (08:23→20:35)
[2024-02-09] MEDS: Nicotine 14 MG PATCH.TD24 TRANSDERMA (08:24)
--- NOTE | 2024-02-09 11:05 | HO.PSYCHPN ---
Subjective Subjective Date of Service: 02/09/24 Reason For Visit: PTSD, bipolar disorder, seizure disorder, alcohol Subjective Notes: Conditional Voluntary Healthcare Proxy: No Guardianship: No Medical Problems Affecting Mental Status: No Interim History: Denies sx of depression, anxiety, then states he is feeling depressed. Reports sleep study is scheduled for 04/05/24. Discussed going home, not feeling ready. Discussed feeling changed cognitively post seizure, limited , not myself . Discussed how some of the anticonvulsants offer mood stabilization properties and can be blunting Team note some language limitation, ending sentences with and all of those things. When we met he used this statement once appropriately. Discussed obtaining levels of dilantin, lamictal, topiramate. He agrees. Medication Compliance: Yes Side effects from medications: No Attending Groups: Intermittent Review of Systems Acute medical concerns: No Medical Review of Systems: unchanged Review of Systems Review of Systems Denies Mental Status Exam Mental Status Exam Patient Appearance: Appropriate Patient Orientation: Person, Place, Time and Situation Level of Consciousness: Alert Patient Behavior: Talkative, Cooperative, Distractible and Good Eye Contact Mood Description: Constricted and Depressed Affect Description: Constricted Patient Cognition Impaired: No Ability to Follow Directions: Good Speech Pattern: Spontaneous Speech Memory Description: Episodic Impaired Hallucinations: None Delusions: Not Present Thought Process: Rumination Thought Content: positive for Circumstantial, positive for Perseveration and positive for Suicidal Ideation (denies) Depressive Symptoms: Thoughts of /Suicide (denies) Judgement: Fair Diagnostics Vital Signs (24Hr): Vital Signs - 24 hr 02/08/24 19:58 02/09/24 07:57 Temperature 98.4 F 97.4 F Pulse Rate 70 53 Respiratory Rate 16 Blood Pressure 139/63 132/74 Pulse Oximetry 97 99 Oxygen Delivery Method Room Air Room Air BMI result Body Mass Index 38.5 Medications Medications Current Medications Acetaminophen (Acetaminophen 325 Mg Tablet) 650 mg PO Q6H PRN PRN Reason: Pain,Mod(Pain 1-3 or higher) Al Hydroxide/Mg Hydroxide (Magnesium Hydrox/Alum Hydrox 30 Ml Oral.Susp) 30 ml PO Q6H PRN PRN Reason: Indigestion Clobazam (Clobazam 10 Mg Tablet) 15 mg PO BEDTIME [facility] Last Admin: 02/08/24 20:47 Dose: 15 mg Hydroxyzine HCl (Hydroxyzine Hcl 25 Mg Tablet) 25 mg PO QID [facility] Last Admin: 02/09/24 08:19 Dose: 25 mg Ibuprofen (Ibuprofen 600 Mg Tablet) 600 mg PO Q6H PRN PRN Reason: pain 1-9 Last Admin: 02/09/24 08:23 Dose: 600 mg Lamotrigine (Lamotrigine 100 Mg Tablet) 300 mg PO BID [facility] Last Admin: 02/09/24 08:19 Dose: 300 mg Melatonin (Melatonin 3 Mg Tablet) 6 mg PO BEDTIME PRN PRN Reason: Insomnia Last Admin: 02/08/24 20:49 Dose: 6 mg Nicotine (Nicotine 14 Mg Patch.Td24) 14 mg TRANSDERMA DAILY PRN PRN Reason: nicotine cravings Last Admin: 02/09/24 08:24 Dose: 14 mg Nicotine Polacrilex (Nicotine Polacrilex 2 Mg Gum) 2 mg BUCCAL Q2H PRN PRN Reason: Nicotine Cravings Olanzapine (Olanzapine 5 Mg Tablet) 5 mg PO BEDTIME [facility] Last Admin: 02/08/24 20:41 Dose: 5 mg Phenytoin Sodium (Phenytoin Sodium Extended 100 Mg Capsule) 200 mg PO DAILY [facility] Last Admin: 02/09/24 08:19 Dose: 200 mg Phenytoin Sodium (Phenytoin Sodium Extended 100 Mg Capsule) 300 mg PO BEDTIME [facility] Last Admin: 02/08/24 20:40 Dose: 300 mg Sertraline HCl (Sertraline Hcl 100 Mg Tablet) 100 mg PO DAILY [facility] Last Admin: 02/09/24 08:19 Dose: 100 mg Topiramate (Topiramate 100 Mg Tablet) 100 mg PO BID [facility] Last Admin: 02/09/24 08:19 Dose: 100 mg Trazodone HCl (Trazodone Hcl 100 Mg Tablet) 100 mg PO BEDTIME [facility] Last Admin: 02/08/24 20:40 Dose: 100 mg Allergies Allergies Allergy/AdvReac Type Severity Reaction Status Date / Time erythromycin base Allergy Unknown UNKNOWN Verified 01/29/24 20:03 [Erythromycin Base] cyclobenzaprine AdvReac Intermediate Other Verified 01/29/24 20:03 [From Flexeril] Assessment & Plan Assessment & Plan (1) PTSD (post-traumatic stress disorder): Status: Acute Code(s): F43.10 - Post-traumatic stress disorder, unspecified (2) Alcohol dependence: Status: Acute Code(s): F10.20 - Alcohol dependence, uncomplicated (3) Depression with suicidal ideation: Status: Acute Code(s): F32.A - Depression, unspecified; R45.851 - Suicidal ideations Plan 02/08- Increase Sertraline to 125 mg daily Levels of Dilantin, Lamotrigine, Topiramate Reason for continued inpatient stay Substantial Risk for: rapid decompensation Time Spent With Patient Time: Total time managing care of this patient today ____ minutes.
[2024-02-09 19:49] VITALS: BP 149/72; PULSE 73; TEMP 36.4; O2SAT 100
[2024-02-09] MEDS: cloBAZam 10 MG TABLET 15 MG PO (20:34)
[2024-02-09] MEDS: Phenytoin Sodium Extended 100 MG CAPSULE 300 MG PO (20:35)
[2024-02-09] MEDS: OLANZapine 5 MG TABLET PO (20:35)
[2024-02-09] MEDS: traZODone HCL 100 MG TABLET PO (20:35)
[2024-02-09] MEDS: Melatonin 3 MG TABLET 6 MG PO (20:36)
[2024-02-10 07:00] VITALS: BMI 39.0
[2024-02-10 08:00] VITALS: BP 127/61; PULSE 60; RESP 18; TEMP 37.3; O2SAT 97
[2024-02-10] MEDS: Phenytoin Sodium Extended 100 MG CAPSULE 200 MG PO (08:44)
[2024-02-10] MEDS: Sertraline HCL 25 MG TABLET 125 MG PO (08:44)
[2024-02-10] MEDS: lamoTRIgine 100 MG TABLET 300 MG PO ×2 (08:44→20:59)
[2024-02-10] MEDS: Topiramate 100 MG TABLET PO ×2 (08:44→20:59)
[2024-02-10] MEDS: hydrOXYzine HCL 25 MG TABLET PO ×3 (08:44→21:00)
[2024-02-10] MEDS: Ibuprofen 600 MG TABLET PO ×2 (08:49→21:08)
[2024-02-10] MEDS: Nicotine 14 MG PATCH.TD24 TRANSDERMA (08:51)
[2024-02-10 08:53] LABS: Phenytoin Dilantin 16.1 ug/mL (10.0-20.0)
--- NOTE | 2024-02-10 09:51 | P.PNPSI_ITS ---
Subjective Subjective Date of Service: 02/10/24 Reason For Visit: PTSD, bipolar disorder, seizure disorder, alcohol Subjective Notes: Conditional Voluntary Healthcare Proxy: No Guardianship: No Medical Problems Affecting Mental Status: No Interim History: Review of medications with pt who asks to increase Sertraline again. We discussed an increase for 02/11 and he agreed. Discussion of discharge for mid week, next week. Pt is in agreement and will discuss with his brother. It is the holidays and he does miss me. Reports a decrease of depressive sx but increase in anxiety. The seizure effected me, I speak slower, I feel more challenged mentally and I try to speak faster. I do have thoughts of hurting myself Medication Compliance: Yes Side effects from medications: No Attending Groups: Yes Review of Systems Acute medical concerns: No Medical Review of Systems: unchanged Review of Systems Review of Systems as noted in HPI Mental Status Exam Mental Status Exam Patient Appearance: Appropriate Patient Orientation: Person, Place, Time and Situation Level of Consciousness: Alert Patient Behavior: Talkative, Cooperative, Distractible and Good Eye Contact Mood Description: Constricted and Depressed Affect Description: Anxious and Flat Patient Cognition Impaired: No Ability to Follow Directions: Good Speech Pattern: Spontaneous Speech Memory Description: Episodic Impaired Hallucinations: None Delusions: Not Present Thought Process: Rumination Thought Content: positive for Circumstantial, positive for Perseveration and positive for Suicidal Ideation Depressive Symptoms: Thoughts of /Suicide Judgement: Fair Diagnostics Vital Signs (24Hr): Vital Signs - 24 hr 02/09/24 19:49 Temperature 97.5 F Pulse Rate 73 Blood Pressure 149/72 H Pulse Oximetry 100 Oxygen Delivery Method Room Air BMI result Body Mass Index 38.5 Labs Labs: Laboratory Results - last 48 hr 02/10/24 08:28 Phenytoin 16.1 Medications Medications Current Medications Acetaminophen (Acetaminophen 325 Mg Tablet) 650 mg PO Q6H PRN PRN Reason: Pain,Mod(Pain 1-3 or higher) Al Hydroxide/Mg Hydroxide (Magnesium Hydrox/Alum Hydrox 30 Ml Oral.Susp) 30 ml PO Q6H PRN PRN Reason: Indigestion Clobazam (Clobazam 10 Mg Tablet) 15 mg PO BEDTIME [facility] Last Admin: 02/09/24 20:34 Dose: 15 mg Hydroxyzine HCl (Hydroxyzine Hcl 25 Mg Tablet) 25 mg PO QID [facility] Last Admin: 02/10/24 08:44 Dose: 25 mg Ibuprofen (Ibuprofen 600 Mg Tablet) 600 mg PO Q6H PRN PRN Reason: pain 1-9 Last Admin: 02/10/24 08:49 Dose: 600 mg Lamotrigine (Lamotrigine 100 Mg Tablet) 300 mg PO BID [facility] Last Admin: 02/10/24 08:44 Dose: 300 mg Melatonin (Melatonin 3 Mg Tablet) 6 mg PO BEDTIME PRN PRN Reason: Insomnia Last Admin: 02/09/24 20:36 Dose: 6 mg Nicotine (Nicotine 14 Mg Patch.Td24) 14 mg TRANSDERMA DAILY PRN PRN Reason: nicotine cravings Last Admin: 02/10/24 08:51 Dose: 14 mg Nicotine Polacrilex (Nicotine Polacrilex 2 Mg Gum) 2 mg BUCCAL Q2H PRN PRN Reason: Nicotine Cravings Olanzapine (Olanzapine 5 Mg Tablet) 5 mg PO BEDTIME [facility] Last Admin: 02/09/24 20:35 Dose: 5 mg Phenytoin Sodium (Phenytoin Sodium Extended 100 Mg Capsule) 200 mg PO DAILY [facility] Last Admin: 02/10/24 08:44 Dose: 200 mg Phenytoin Sodium (Phenytoin Sodium Extended 100 Mg Capsule) 300 mg PO BEDTIME [facility] Last Admin: 02/09/24 20:35 Dose: 300 mg Sertraline HCl (Sertraline Hcl 25 Mg Tablet) 125 mg PO DAILY [facility] Last Admin: 02/10/24 08:44 Dose: 125 mg Topiramate (Topiramate 100 Mg Tablet) 100 mg PO BID [facility] Last Admin: 02/10/24 08:44 Dose: 100 mg Trazodone HCl (Trazodone Hcl 100 Mg Tablet) 100 mg PO BEDTIME [facility] Last Admin: 02/09/24 20:35 Dose: 100 mg Allergies Allergies Allergy/AdvReac Type Severity Reaction Status Date / Time erythromycin base Allergy Unknown UNKNOWN Verified 01/29/24 20:03 [Erythromycin Base] cyclobenzaprine AdvReac Intermediate Other Verified 01/29/24 20:03 [From Flexeril] Assessment & Plan Assessment & Plan (1) Bipolar disorder: Status: Inactive Code(s): F31.9 - Bipolar disorder, unspecified (2) PTSD (post-traumatic stress disorder): Status: Acute Code(s): F43.10 - Post-traumatic stress disorder, unspecified (3) Alcohol dependence: Status: Acute Code(s): F10.20 - Alcohol dependence, uncomplicated (4) COPD (chronic obstructive pulmonary disease): Status: Acute Code(s): J44.9 - Chronic obstructive pulmonary disease, unspecified (5) Intractable epilepsy: Qualifiers: Epilepsy type: generalized idiopathic Status epilepticus: without status epilepticus Qualified Code(s): G40.319 - Generalized idiopathic epilepsy and epileptic syndromes, intractable, without status epilepticus Status: Inactive Code(s): G40.919 - Epilepsy, unspecified, intractable, without status epilepticus Plan 43 yo male, history of PTSD, Bipolar Depression, Intractable epilepsy, Alcohol Use Disorder to ER reporting SI with a plan to stab himself. He told crisis he has not been using substances and has been medication compliant. Reports precipitant is an argument with brothers. Reported an increase in AH telling him to suicide. Patient was open to medication management however remained feeling depressed. Patient had epileptic seizure and was transferred to medical floor. Patient returns now to continue psychiatric treatment. Patient says I just since something is wrong with me. On inquiry regarding SI patient said pitchfork... On further inquiry he reports continued suicidal thoughts but I do not want to... Says he has thoughts of using a pitchfork to hurt himself. Plan: CV Q 15 minute checks Resume psychiatric treatment Discharge summary from medical floor Seizure disorder/epilepsy with breakthrough seizure. transferred to the medical floor, Loaded with 1 g of Dilantin and started dilantin TID IV. patient has had multiple admissions for the same; records from [facility] reviewed has had at least 3 medical admissions there as well due to breakthrough seizures since his last d/c from here in November. meds were changed on each admission. He reports being compliant with meds unclear if patient has been taking meds appropriately as he can't name all the meds he takes for seizures. COntinue on clobazam, lamotrigine, topomax and initially IV dilatin that was changed to po at previous home regimen (dilantin 200 qam and 300 qhs). no seizures in the past 48 hours. Seen by neurology, recommend to continue current medication regimen. No evidence of infection>CXR negative for consolidation or effusion, UA pending, labs within normal limits. no need for repeat EEG as patient know to have longstanding history of epilepsy. 02/09: Continue current plan/regime. Reason for continued inpatient stay Substantial Risk for: rapid decompensation and med/psych decompensation Time Spent With Patient Time: Total time managing care of this patient today ____ minutes.
[2024-02-10 20:00] VITALS: BP 135/66; PULSE 72; RESP 16; TEMP 37.1; O2SAT 96
[2024-02-10] MEDS: cloBAZam 10 MG TABLET 15 MG PO (20:58)
[2024-02-10] MEDS: traZODone HCL 100 MG TABLET PO (20:59)
[2024-02-10] MEDS: Phenytoin Sodium Extended 100 MG CAPSULE 300 MG PO (21:00)
[2024-02-10] MEDS: Melatonin 3 MG TABLET 6 MG PO (21:01)
[2024-02-10] MEDS: OLANZapine 5 MG TABLET PO (21:02)
[2024-02-11] MEDS: Phenytoin Sodium Extended 100 MG CAPSULE 200 MG PO (08:51)
[2024-02-11] MEDS: lamoTRIgine 100 MG TABLET 300 MG PO ×2 (08:51→20:33)
[2024-02-11] MEDS: Sertraline HCL 25 MG TABLET 125 MG PO (08:51)
[2024-02-11] MEDS: Topiramate 100 MG TABLET PO ×2 (08:52→20:34)
[2024-02-11] MEDS: hydrOXYzine HCL 25 MG TABLET PO ×4 (08:52→20:34)
[2024-02-11] MEDS: Ibuprofen 600 MG TABLET PO ×3 (08:52→20:33)
[2024-02-11] MEDS: Nicotine 14 MG PATCH.TD24 TRANSDERMA (08:54)
--- NOTE | 2024-02-11 10:30 | HO.PSYCHPN ---
Subjective Subjective Date of Service: 02/11/24 Reason For Visit: PTSD, bipolar disorder, seizure disorder, alcohol Subjective Notes: Conditional Voluntary Healthcare Proxy: No Guardianship: No Medical Problems Affecting Mental Status: No Interim History: Pt discussed his changes in thought process, anger and his focus on his speech. Today, he denies SI. We discussed adding 2.5 mg Olanzapine in the a.m. for mood/clarity along with scheduled Sertraline increase which he agrees may help. He is pleased with discharge planning at this time. We discussed evaluating daily to assess needs and plan based upon his needs. Medication Compliance: Yes Side effects from medications: No Attending Groups: Intermittent Review of Systems Acute medical concerns: No Review of Systems Review of Systems Denies today. Mental Status Exam Mental Status Exam Patient Appearance: Appropriate Patient Orientation: Person, Place, Time and Situation Level of Consciousness: Alert Patient Behavior: Talkative, Cooperative and Good Eye Contact Mood Description: Constricted and Depressed Affect Description: Flat Patient Cognition Impaired: No Ability to Follow Directions: Good Speech Pattern: Spontaneous Speech Memory Description: Episodic Impaired Hallucinations: None Delusions: Not Present Thought Content: positive for Circumstantial Judgement: Fair Diagnostics Vital Signs (24Hr): Vital Signs - 24 hr 02/10/24 20:00 Temperature 98.7 F Pulse Rate 72 Respiratory Rate 16 Blood Pressure 135/66 Pulse Oximetry 96 Oxygen Delivery Method Room Air BMI result Body Mass Index 39.0 Labs Labs: Laboratory Results - last 48 hr 02/10/24 08:28 Phenytoin 16.1 Medications Medications Current Medications Acetaminophen (Acetaminophen 325 Mg Tablet) 650 mg PO Q6H PRN PRN Reason: Pain,Mod(Pain 1-3 or higher) Al Hydroxide/Mg Hydroxide (Magnesium Hydrox/Alum Hydrox 30 Ml Oral.Susp) 30 ml PO Q6H PRN PRN Reason: Indigestion Clobazam (Clobazam 10 Mg Tablet) 15 mg PO BEDTIME [facility] Last Admin: 02/10/24 20:58 Dose: 15 mg Hydroxyzine HCl (Hydroxyzine Hcl 25 Mg Tablet) 25 mg PO QID [facility] Last Admin: 02/11/24 08:52 Dose: 25 mg Ibuprofen (Ibuprofen 600 Mg Tablet) 600 mg PO TID [facility] Last Admin: 02/11/24 08:52 Dose: 600 mg Lamotrigine (Lamotrigine 100 Mg Tablet) 300 mg PO BID [facility] Last Admin: 02/11/24 08:51 Dose: 300 mg Melatonin (Melatonin 3 Mg Tablet) 6 mg PO BEDTIME PRN PRN Reason: Insomnia Last Admin: 02/10/24 21:01 Dose: 6 mg Nicotine (Nicotine 14 Mg Patch.Td24) 14 mg TRANSDERMA DAILY PRN PRN Reason: nicotine cravings Last Admin: 02/11/24 08:54 Dose: 14 mg Nicotine Polacrilex (Nicotine Polacrilex 2 Mg Gum) 2 mg BUCCAL Q2H PRN PRN Reason: Nicotine Cravings Olanzapine (Olanzapine 5 Mg Tablet) 5 mg PO BEDTIME [facility] Last Admin: 02/10/24 21:02 Dose: 5 mg Phenytoin Sodium (Phenytoin Sodium Extended 100 Mg Capsule) 200 mg PO DAILY [facility] Last Admin: 02/11/24 08:51 Dose: 200 mg Phenytoin Sodium (Phenytoin Sodium Extended 100 Mg Capsule) 300 mg PO BEDTIME [facility] Last Admin: 02/10/24 21:00 Dose: 300 mg Sertraline HCl (Sertraline Hcl 25 Mg Tablet) 125 mg PO DAILY [facility] Last Admin: 02/11/24 08:51 Dose: 125 mg Topiramate (Topiramate 100 Mg Tablet) 100 mg PO BID [facility] Last Admin: 02/11/24 08:52 Dose: 100 mg Trazodone HCl (Trazodone Hcl 100 Mg Tablet) 100 mg PO BEDTIME [facility] Last Admin: 02/10/24 20:59 Dose: 100 mg Allergies Allergies Allergy/AdvReac Type Severity Reaction Status Date / Time erythromycin base Allergy Unknown UNKNOWN Verified 01/29/24 20:03 [Erythromycin Base] cyclobenzaprine AdvReac Intermediate Other Verified 01/29/24 20:03 [From Flexeril] Assessment & Plan Assessment & Plan (1) Bipolar disorder: Status: Inactive Code(s): F31.9 - Bipolar disorder, unspecified (2) PTSD (post-traumatic stress disorder): Status: Acute Code(s): F43.10 - Post-traumatic stress disorder, unspecified (3) Alcohol dependence: Status: Acute Code(s): F10.20 - Alcohol dependence, uncomplicated (4) COPD (chronic obstructive pulmonary disease): Status: Acute Code(s): J44.9 - Chronic obstructive pulmonary disease, unspecified (5) Intractable epilepsy: Qualifiers: Epilepsy type: generalized idiopathic Status epilepticus: without status epilepticus Qualified Code(s): G40.319 - Generalized idiopathic epilepsy and epileptic syndromes, intractable, without status epilepticus Status: Inactive Code(s): G40.919 - Epilepsy, unspecified, intractable, without status epilepticus Plan 43 yo male, history of PTSD, Bipolar Depression, Intractable epilepsy, Alcohol Use Disorder to ER reporting SI with a plan to stab himself. He told crisis he has not been using substances and has been medication compliant. Reports precipitant is an argument with brothers. Reported an increase in AH telling him to suicide. Patient was open to medication management however remained feeling depressed. Patient had epileptic seizure and was transferred to medical floor. Patient returns now to continue psychiatric treatment. Patient says I just since something is wrong with me. On inquiry regarding SI patient said pitchfork... On further inquiry he reports continued suicidal thoughts but I do not want to... Says he has thoughts of using a pitchfork to hurt himself. Plan: CV Q 15 minute checks Resume psychiatric treatment Discharge summary from medical floor Seizure disorder/epilepsy with breakthrough seizure. transferred to the medical floor, Loaded with 1 g of Dilantin and started dilantin TID IV. patient has had multiple admissions for the same; [place] [facility] [place] has had at least 3 medical admissions there as well due to breakthrough seizures since his last d/c from here in November. meds were changed on each admission. He reports being compliant with meds unclear if patient has been taking meds appropriately as he can't name all the meds he takes for seizures. COntinue on clobazam, lamotrigine, topomax and initially IV dilatin that was changed to po at previous home regimen (dilantin 200 qam and 300 qhs). no seizures in the past 48 hours. Seen by neurology, recommend to continue current medication regimen. No evidence of infection>CXR negative for consolidation or effusion, UA pending, labs within normal limits. no need for repeat EEG as patient know to have longstanding history of epilepsy. 02/11/24: Olanzapine 2.5 mg a.m. Increase Sertraline to 150 mg a.m. Reason for continued inpatient stay Substantial Risk for: rapid decompensation Time Spent With Patient Time: Total time managing care of this patient today ____ minutes.
[2024-02-11 20:00] VITALS: BP 135/80; PULSE 65; RESP 15; TEMP 36.9; O2SAT 99
[2024-02-11] MEDS: traZODone HCL 100 MG TABLET PO (20:32)
[2024-02-11] MEDS: OLANZapine 5 MG TABLET PO (20:33)
[2024-02-11] MEDS: Phenytoin Sodium Extended 100 MG CAPSULE 300 MG PO (20:33)
[2024-02-11] MEDS: cloBAZam 10 MG TABLET 15 MG PO (20:34)
[2024-02-12 08:00] VITALS: BP 135/64; PULSE 54; RESP 20; TEMP 36.6; O2SAT 100
[2024-02-12] MEDS: Nicotine 14 MG PATCH.TD24 TRANSDERMA (08:45)
[2024-02-12] MEDS: Sertraline HCL 50 MG TABLET 150 MG PO (08:46)
[2024-02-12] MEDS: Topiramate 100 MG TABLET PO ×2 (08:46→20:05)
[2024-02-12] MEDS: lamoTRIgine 100 MG TABLET 300 MG PO ×2 (08:47→20:04)
[2024-02-12] MEDS: hydrOXYzine HCL 25 MG TABLET PO ×4 (08:47→20:14)
[2024-02-12] MEDS: Ibuprofen 600 MG TABLET PO ×3 (08:47→20:05)
[2024-02-12] MEDS: Phenytoin Sodium Extended 100 MG CAPSULE 200 MG PO (08:48)
[2024-02-12] MEDS: OLANZapine 2.5 MG TABLET PO (08:48)
--- NOTE | 2024-02-12 09:09 | P.PNPSI_ITS ---
Subjective Subjective Date of Service: 02/12/24 Reason For Visit: PTSD, bipolar disorder, seizure disorder, alcohol Interim History: Met with patient; discussed with team Patient reports that he has hanging in there and feeling a little better. Says he sleeps better if he leaves the nicotine patch on and would like to continue to do so. Says tolerating new medication regimen would like to leave as is Mental Status Exam Mental Status Exam Patient Appearance: Appropriate Patient Orientation: Person, Place, Time and Situation Level of Consciousness: Alert Patient Behavior: Talkative, Cooperative and Good Eye Contact Mood Description: Constricted and Depressed Affect Description: Constricted Patient Cognition Impaired: No Ability to Follow Directions: Good Speech Pattern: Spontaneous Speech Memory Description: Episodic Impaired Hallucinations: None Delusions: Not Present Thought Content: positive for Goal Oriented (Focused on treatment) and positive for Suicidal Ideation (No expressions of SI or HI) Judgement and Insight: Impaired but seems improving Diagnostics Vital Signs (24Hr): Vital Signs - 24 hr 02/11/24 20:00 02/12/24 08:00 Temperature 98.4 F 97.8 F Pulse Rate 65 54 Respiratory Rate 15 20 Blood Pressure 135/80 135/64 Pulse Oximetry 99 100 Oxygen Delivery Method Room Air BMI result Body Mass Index 39.0 Medications Medications Current Medications Acetaminophen (Acetaminophen 325 Mg Tablet) 650 mg PO Q6H PRN PRN Reason: Pain,Mod(Pain 1-3 or higher) Al Hydroxide/Mg Hydroxide (Magnesium Hydrox/Alum Hydrox 30 Ml Oral.Susp) 30 ml PO Q6H PRN PRN Reason: Indigestion Clobazam (Clobazam 10 Mg Tablet) 15 mg PO BEDTIME [facility] Last Admin: 02/11/24 20:34 Dose: 15 mg Hydroxyzine HCl (Hydroxyzine Hcl 25 Mg Tablet) 25 mg PO QID [facility] Last Admin: 02/12/24 08:47 Dose: 25 mg Ibuprofen (Ibuprofen 600 Mg Tablet) 600 mg PO TID [facility] Last Admin: 02/12/24 08:47 Dose: 600 mg Lamotrigine (Lamotrigine 100 Mg Tablet) 300 mg PO BID [facility] Last Admin: 02/12/24 08:47 Dose: 300 mg Melatonin (Melatonin 3 Mg Tablet) 6 mg PO BEDTIME PRN PRN Reason: Insomnia Last Admin: 02/10/24 21:01 Dose: 6 mg Nicotine (Nicotine 14 Mg Patch.Td24) 14 mg TRANSDERMA DAILY PRN PRN Reason: nicotine cravings Last Admin: 02/12/24 08:45 Dose: 14 mg Nicotine Polacrilex (Nicotine Polacrilex 2 Mg Gum) 2 mg BUCCAL Q2H PRN PRN Reason: Nicotine Cravings Olanzapine (Olanzapine 5 Mg Tablet) 5 mg PO BEDTIME [facility] Last Admin: 02/11/24 20:33 Dose: 5 mg Olanzapine (Olanzapine 2.5 Mg Tablet) 2.5 mg PO DAILY [facility] Last Admin: 02/12/24 08:48 Dose: 2.5 mg Phenytoin Sodium (Phenytoin Sodium Extended 100 Mg Capsule) 200 mg PO DAILY [facility] Last Admin: 02/12/24 08:48 Dose: 200 mg Phenytoin Sodium (Phenytoin Sodium Extended 100 Mg Capsule) 300 mg PO BEDTIME [facility] Last Admin: 02/11/24 20:33 Dose: 300 mg Sertraline HCl (Sertraline Hcl 50 Mg Tablet) 150 mg PO DAILY [facility] Last Admin: 02/12/24 08:46 Dose: 150 mg Topiramate (Topiramate 100 Mg Tablet) 100 mg PO BID [facility] Last Admin: 02/12/24 08:46 Dose: 100 mg Trazodone HCl (Trazodone Hcl 100 Mg Tablet) 100 mg PO BEDTIME [facility] Last Admin: 02/11/24 20:32 Dose: 100 mg Allergies Allergies Allergy/AdvReac Type Severity Reaction Status Date / Time erythromycin base Allergy Unknown UNKNOWN Verified 01/29/24 20:03 [Erythromycin Base] cyclobenzaprine AdvReac Intermediate Other Verified 01/29/24 20:03 [From Flexeril] Assessment & Plan Assessment & Plan (1) Bipolar disorder: Status: Inactive Code(s): F31.9 - Bipolar disorder, unspecified (2) PTSD (post-traumatic stress disorder): Status: Acute Code(s): F43.10 - Post-traumatic stress disorder, unspecified (3) Alcohol dependence: Status: Acute Code(s): F10.20 - Alcohol dependence, uncomplicated (4) COPD (chronic obstructive pulmonary disease): Status: Acute Code(s): J44.9 - Chronic obstructive pulmonary disease, unspecified (5) Intractable epilepsy: Qualifiers: Epilepsy type: generalized idiopathic Status epilepticus: without status epilepticus Qualified Code(s): G40.319 - Generalized idiopathic epilepsy and epileptic syndromes, intractable, without status epilepticus Status: Inactive Code(s): G40.919 - Epilepsy, unspecified, intractable, without status epilepticus Plan 43 yo male, history of PTSD, Bipolar Depression, Intractable epilepsy, Alcohol Use Disorder to ER reporting SI with a plan to stab himself. He told crisis he has not been using substances and has been medication compliant. Reports precipitant is an argument with brothers. Reported an increase in AH telling him to suicide. Patient was open to medication management however remained feeling depressed. Patient had epileptic seizure and was transferred to medical floor. Patient returns now to continue psychiatric treatment. Patient says I just since something is wrong with me. On inquiry regarding SI patient said pitchfork... On further inquiry he reports continued suicidal thoughts but I do not want to... Says he has thoughts of using a pitchfork to hurt himself. Plan: CV Q 15 minute checks Resume psychiatric treatment Discharge summary from medical floor Seizure disorder/epilepsy with breakthrough seizure. transferred to the medical floor, Loaded with 1 g of Dilantin and started dilantin TID IV. patient has had multiple admissions for the same; records from [facility] reviewed has had at least 3 medical admissions there as well due to breakthrough seizures since his last d/c from here in November. meds were changed on each admission. He reports being compliant with meds unclear if patient has been taking meds appropriately as he can't name all the meds he takes for seizures. COntinue on clobazam, lamotrigine, topomax and initially IV dilatin that was changed to po at previous home regimen (dilantin 200 qam and 300 qhs). no seizures in the past 48 hours. Seen by neurology, recommend to continue current medication regimen. No evidence of infection>CXR negative for consolidation or effusion, UA pending, labs within normal limits. no need for repeat EEG as patient know to have longstanding history of epilepsy. 02/11/24: Olanzapine 2.5 mg a.m. Increase Sertraline to 150 mg a.m. 02/11 continue current treatment plan Patient educated on: diagnosis and medication risk/benefits Informed Consent: understands Reason for continued inpatient stay Substantial Risk for: rapid decompensation Time Spent With Patient Time: Total time managing care of this patient today ____ minutes.
[2024-02-12] MEDS: LORazepam 2 MG/ML VIAL IM (18:13)
--- NOTE | 2024-02-12 18:31 | PC.NURSE ---
Pt came to RN station at 1800 reporting he was having petit mal seizures since about 1730 consisting of small involuntary movements and some tremulousness. Pt reported feeling not all there and was taken to lay down and VS taken- 179/89, pulse 67, sating 98% on RA. [place] text messaged Dr Gongora and on- call hospitalist Cristiano Garcia and received orders to administer Ativan 2 mg IM once. Administered to pt at 1817 and VS 147/72, pulse 66, sating 98% RA. Pt talking as TW remained at BS. He proceeded to have 4 additional seizures all lasting less than 5 seconds. Pt reports having headache and feeling post ictal. Pt continuing to talk and reports feeling okay and I'm working through it . Dr Garcia updated and will continue to monitor. He continues to talk and is A/o x3
[2024-02-12 19:59] VITALS: BP 140/81; PULSE 75; RESP 15; TEMP 36; O2SAT 98
[2024-02-12] MEDS: OLANZapine 5 MG TABLET PO (20:04)
[2024-02-12] MEDS: Phenytoin Sodium Extended 100 MG CAPSULE 300 MG PO (20:04)
[2024-02-12] MEDS: cloBAZam 10 MG TABLET 15 MG PO (20:04)
[2024-02-12] MEDS: traZODone HCL 100 MG TABLET PO (20:05)
[2024-02-12] MEDS: Melatonin 3 MG TABLET 6 MG PO (20:09)
[2024-02-12 20:41] LABS: Glucose, Whole Blood 124 mg/dL (60-115)
[2024-02-12 20:42] VITALS: BP 131/68; PULSE 86; RESP 15; TEMP 36.9; O2SAT 96
[2024-02-13] MEDS: Nicotine 14 MG PATCH.TD24 TRANSDERMA (07:57)
[2024-02-13] MEDS: Topiramate 100 MG TABLET PO ×2 (07:59→20:47)
[2024-02-13] MEDS: hydrOXYzine HCL 25 MG TABLET PO ×4 (07:59→20:47)
[2024-02-13] MEDS: lamoTRIgine 100 MG TABLET 300 MG PO ×2 (07:59→20:45)
[2024-02-13] MEDS: Phenytoin Sodium Extended 100 MG CAPSULE 200 MG PO (07:59)
[2024-02-13] MEDS: Sertraline HCL 50 MG TABLET 150 MG PO (07:59)
[2024-02-13 08:00] VITALS: BP 111/52; PULSE 63; RESP 18; TEMP 36.4; O2SAT 100
[2024-02-13] MEDS: Ibuprofen 600 MG TABLET PO ×3 (08:01→20:46)
[2024-02-13] MEDS: OLANZapine 2.5 MG TABLET PO (08:02)
[2024-02-13 09:00] VITALS: BP 120/58; PULSE 71; RESP 18; TEMP 36.6; O2SAT 98
--- NOTE | 2024-02-13 10:33 | P.PNPSI_ITS ---
Subjective Subjective Date of Service: 02/13/24 Reason For Visit: PTSD, bipolar disorder, seizure disorder, alcohol Interim History: Met with patient; discussed with team Nursing reports that last night patient had a petite mal seizure and was given Ativan 2 mg IM. This morning patient had a witnessed fall; he fell and hit his buttocks (only) on the floor and then immediately stood right back up; no loss of consciousness patient said he was fine... Patient anxious about continuing breakthrough seizures. Mental Status Exam Mental Status Exam Patient Appearance: Appropriate Patient Orientation: Person, Place, Time and Situation Level of Consciousness: Alert Patient Behavior: Talkative, Cooperative and Good Eye Contact Mood Description: Constricted and Depressed Affect Description: Constricted Patient Cognition Impaired: No Ability to Follow Directions: Good Speech Pattern: Spontaneous Speech Memory Description: Episodic Impaired Hallucinations: None Delusions: Not Present Thought Content: positive for Goal Oriented (Focused on treatment) and positive for Suicidal Ideation (Denies) Judgement and Insight: Impaired but seems improving Diagnostics Vital Signs (24Hr): Vital Signs - 24 hr 02/12/24 19:59 02/12/24 20:42 02/13/24 08:00 Temperature 96.8 F 98.4 F 97.6 F Pulse Rate 75 86 63 Respiratory Rate 15 15 18 Blood Pressure 140/81 H 131/68 111/52 L Pulse Oximetry 98 96 100 Oxygen Delivery Method Room Air 02/13/24 09:00 Temperature 97.8 F Pulse Rate 71 Respiratory Rate 18 Blood Pressure 120/58 L Pulse Oximetry 98 Oxygen Delivery Method Room Air BMI result Body Mass Index 39.0 Labs Labs: Laboratory Results - last 48 hr 02/12/24 20:34 POC Glucose 124 H Medications Medications Current Medications Acetaminophen (Acetaminophen 325 Mg Tablet) 650 mg PO Q6H PRN PRN Reason: Pain,Mod(Pain 1-3 or higher) Al Hydroxide/Mg Hydroxide (Magnesium Hydrox/Alum Hydrox 30 Ml Oral.Susp) 30 ml PO Q6H PRN PRN Reason: Indigestion Clobazam (Clobazam 10 Mg Tablet) 15 mg PO BEDTIME [facility] Last Admin: 02/12/24 20:04 Dose: 15 mg Hydroxyzine HCl (Hydroxyzine Hcl 25 Mg Tablet) 25 mg PO QID [facility] Last Admin: 02/13/24 07:59 Dose: 25 mg Ibuprofen (Ibuprofen 600 Mg Tablet) 600 mg PO TID [facility] Last Admin: 02/13/24 08:01 Dose: 600 mg Lamotrigine (Lamotrigine 100 Mg Tablet) 300 mg PO BID [facility] Last Admin: 02/13/24 07:59 Dose: 300 mg Melatonin (Melatonin 3 Mg Tablet) 6 mg PO BEDTIME PRN PRN Reason: Insomnia Last Admin: 02/12/24 20:09 Dose: 6 mg Nicotine (Nicotine 14 Mg Patch.Td24) 14 mg TRANSDERMA DAILY PRN PRN Reason: nicotine cravings Last Admin: 02/13/24 07:57 Dose: 14 mg Nicotine Polacrilex (Nicotine Polacrilex 2 Mg Gum) 2 mg BUCCAL Q2H PRN PRN Reason: Nicotine Cravings Olanzapine (Olanzapine 5 Mg Tablet) 5 mg PO BEDTIME [facility] Last Admin: 02/12/24 20:04 Dose: 5 mg Olanzapine (Olanzapine 2.5 Mg Tablet) 2.5 mg PO DAILY [facility] Last Admin: 02/13/24 08:02 Dose: 2.5 mg Phenytoin Sodium (Phenytoin Sodium Extended 100 Mg Capsule) 200 mg PO DAILY [facility] Last Admin: 02/13/24 07:59 Dose: 200 mg Phenytoin Sodium (Phenytoin Sodium Extended 100 Mg Capsule) 300 mg PO BEDTIME [facility] Last Admin: 02/12/24 20:04 Dose: 300 mg Sertraline HCl (Sertraline Hcl 50 Mg Tablet) 150 mg PO DAILY [facility] Last Admin: 02/13/24 07:59 Dose: 150 mg Topiramate (Topiramate 100 Mg Tablet) 100 mg PO BID [facility] Last Admin: 02/13/24 07:59 Dose: 100 mg Trazodone HCl (Trazodone Hcl 100 Mg Tablet) 100 mg PO BEDTIME [facility] Last Admin: 02/12/24 20:05 Dose: 100 mg Allergies Allergies Allergy/AdvReac Type Severity Reaction Status Date / Time erythromycin base Allergy Unknown UNKNOWN Verified 01/29/24 20:03 [Erythromycin Base] cyclobenzaprine AdvReac Intermediate Other Verified 01/29/24 20:03 [From Flexeril] Assessment & Plan Assessment & Plan (1) Bipolar disorder: Status: Acute Code(s): F31.9 - Bipolar disorder, unspecified (2) PTSD (post-traumatic stress disorder): Status: Acute Code(s): F43.10 - Post-traumatic stress disorder, unspecified (3) Alcohol dependence: Status: Acute Code(s): F10.20 - Alcohol dependence, uncomplicated (4) COPD (chronic obstructive pulmonary disease): Status: Acute Code(s): J44.9 - Chronic obstructive pulmonary disease, unspecified (5) Epilepsy: Status: Acute Code(s): G40.909 - Epilepsy, unspecified, not intractable, without status epilepticus Plan 43 yo male, history of PTSD, Bipolar Depression, Intractable epilepsy, Alcohol Use Disorder to ER reporting SI with a plan to stab himself. He told crisis he has not been using substances and has been medication compliant. Reports precipitant is an argument with brothers. Reported an increase in AH telling him to suicide. Patient was open to medication management however remained feeling depressed. Patient had epileptic seizure and was transferred to medical floor. Patient returns now to continue psychiatric treatment. Patient says I just since something is wrong with me. On inquiry regarding SI patient said pitchfork... On further inquiry he reports continued suicidal thoughts but I do not want to... Says he has thoughts of using a pitchfork to hurt himself. Discharge summary from medical floor Seizure disorder/epilepsy with breakthrough seizure. transferred to the medical floor, Loaded with 1 g of Dilantin and started dilantin TID IV. patient has had multiple admissions for the same; records from [facility] [place] has had at least 3 medical admissions there as well due to breakthrough seizures since his last d/c from here in November. meds were changed on each admission. He reports being compliant with meds unclear if patient has been taking meds appropriately as he can't name all the meds he takes for seizures. COntinue on clobazam, lamotrigine, topomax and initially IV dilatin that was changed to po at previous home regimen (dilantin 200 qam and 30 0 qhs). no seizures in the past 48 hours. Seen by neurology, recommend to continue current medication regimen. No evidence of infection>CXR negative for consolidation or effusion, UA pending, labs within normal limits. no need for repeat EEG as patient know to have longstanding history of epilepsy. Hospital course: 02/11/24: Olanzapine 2.5 mg a.m. Increase Sertraline to 150 mg a.m. 02/11 continue current treatment plan 02/12 Nursing reports that last night patient had a petite mal seizure and was given Ativan 2 mg IM. This morning patient had a witnessed fall; he fell and hit his buttocks (only) on the floor and then immediately stood right back up; no loss of consciousness patient said he was fine... -anxious about continuing breakthrough seizures. Otherwise says mood is better and no SI. Sleeping well, says nicotine patch is helping sleep -continue current treatment plan for now; -reviewed labs and looks like Topamax level has room for increased dosing; publicity writer asked hospitalist to review Topamax level and see if increase dose is an options; otherwise would consider adding low-dose Ativan scheduled Plan: CV Q 15 minute checks Olanzapine 2.5 mg a.m. Increased Sertraline to 150 mg a.m. Otherwise Resume psychiatric treatment Continue antiepileptics Patient educated on: diagnosis, medication risk/benefits and medical condition Informed Consent: understands Reason for continued inpatient stay Substantial Risk for: rapid decompensation Time Spent With Patient Time: Total time managing care of this patient today ____ minutes.
[2024-02-13 13:03] LABS: Topiramate 2.3 mcg/mL (see note)
[2024-02-13 19:51] VITALS: BP 121/76; PULSE 77; RESP 15; TEMP 36.9; O2SAT 97
[2024-02-13] MEDS: Phenytoin Sodium Extended 100 MG CAPSULE 300 MG PO (20:45)
[2024-02-13] MEDS: OLANZapine 5 MG TABLET PO (20:46)
[2024-02-13] MEDS: Melatonin 3 MG TABLET 6 MG PO (20:46)
[2024-02-13] MEDS: traZODone HCL 100 MG TABLET PO (20:46)
[2024-02-13] MEDS: cloBAZam 10 MG TABLET 15 MG PO (20:46)
[2024-02-14 07:59] VITALS: BP 110/57; PULSE 53; TEMP 36.9; O2SAT 98
[2024-02-14] MEDS: Nicotine 14 MG PATCH.TD24 TRANSDERMA (08:31)
[2024-02-14] MEDS: Sertraline HCL 50 MG TABLET 150 MG PO (08:31)
[2024-02-14] MEDS: lamoTRIgine 100 MG TABLET 300 MG PO ×2 (08:31→21:36)
[2024-02-14] MEDS: Phenytoin Sodium Extended 100 MG CAPSULE 200 MG PO (08:31)
[2024-02-14] MEDS: OLANZapine 2.5 MG TABLET PO (08:32)
[2024-02-14] MEDS: Ibuprofen 600 MG TABLET PO ×3 (08:32→21:36)
[2024-02-14] MEDS: Acetaminophen 325 MG TABLET 650 MG PO (08:32)
[2024-02-14] MEDS: Topiramate 100 MG TABLET PO ×2 (08:32→21:35)
[2024-02-14] MEDS: hydrOXYzine HCL 25 MG TABLET PO ×4 (08:32→21:35)
[2024-02-14] MEDS: LORazepam 2 MG/ML VIAL IM (09:16)
--- NOTE | 2024-02-14 09:41 | P.PNPSI_ITS ---
Subjective Subjective Date of Service: 02/14/24 Reason For Visit: PTSD, bipolar disorder, seizure disorder, alcohol Subjective Notes: Conditional Voluntary Healthcare Proxy: No Guardianship: No Medical Problems Affecting Mental Status: No Interim History: Pt reports seizure x 1 over the weekend with relief from Lorazepam. Seen by neurology who suggested Klonopin, which is started at 0.5 mg HS. Pt reports Olanzapine is helpful and discussed increasing a.m. dosing to 5 mg. States he is prepared for discharge. Denies SI/HI/AH/VH. I miss the family, it will be good to be with them again. Medication Compliance: Yes Side effects from medications: No Attending Groups: Intermittent Review of Systems Acute medical concerns: No Review of Systems Review of Systems denies Mental Status Exam Mental Status Exam Patient Appearance: Appropriate Patient Orientation: Person, Place, Time and Situation Level of Consciousness: Alert Patient Behavior: Appropriate, Talkative, Cooperative and Good Eye Contact Mood Description: Constricted Affect Description: Constricted Patient Cognition Impaired: No Ability to Follow Directions: Good Speech Pattern: Spontaneous Speech Memory Description: Intact Hallucinations: None Delusions: Not Present Thought Process: Intact and Goal Oriented Thought Content: positive for Intact and positive for Goal Oriented Judgement: Good Diagnostics Vital Signs (24Hr): Vital Signs - 24 hr 02/13/24 19:51 02/14/24 07:59 Temperature 98.5 F 98.4 F Pulse Rate 77 53 Respiratory Rate 15 Blood Pressure 121/76 110/57 L Pulse Oximetry 97 98 Oxygen Delivery Method Room Air BMI result Body Mass Index 39.0 Labs Labs: Laboratory Results - last 48 hr 02/10/24 02/12/24 08:28 20:34 POC Glucose 124 H Topiramate 2.3 Medications Medications Current Medications Acetaminophen (Acetaminophen 325 Mg Tablet) 650 mg PO Q6H PRN PRN Reason: Pain,Mod(Pain 1-3 or higher) Last Admin: 02/14/24 08:32 Dose: 650 mg Al Hydroxide/Mg Hydroxide (Magnesium Hydrox/Alum Hydrox 30 Ml Oral.Susp) 30 ml PO Q6H PRN PRN Reason: Indigestion Clobazam (Clobazam 10 Mg Tablet) 15 mg PO BEDTIME [facility] Last Admin: 02/13/24 20:46 Dose: 15 mg Hydroxyzine HCl (Hydroxyzine Hcl 25 Mg Tablet) 25 mg PO QID [facility] Last Admin: 02/14/24 08:32 Dose: 25 mg Ibuprofen (Ibuprofen 600 Mg Tablet) 600 mg PO TID [facility] Last Admin: 02/14/24 08:32 Dose: 600 mg Lamotrigine (Lamotrigine 100 Mg Tablet) 300 mg PO BID [facility] Last Admin: 02/14/24 08:31 Dose: 300 mg Melatonin (Melatonin 3 Mg Tablet) 6 mg PO BEDTIME PRN PRN Reason: Insomnia Last Admin: 02/13/24 20:46 Dose: 6 mg Nicotine (Nicotine 14 Mg Patch.Td24) 14 mg TRANSDERMA DAILY PRN PRN Reason: nicotine cravings Last Admin: 02/14/24 08:31 Dose: 14 mg Nicotine Polacrilex (Nicotine Polacrilex 2 Mg Gum) 2 mg BUCCAL Q2H PRN PRN Reason: Nicotine Cravings Olanzapine (Olanzapine 5 Mg Tablet) 5 mg PO BEDTIME [facility] Last Admin: 02/13/24 20:46 Dose: 5 mg Olanzapine (Olanzapine 2.5 Mg Tablet) 2.5 mg PO DAILY [facility] Last Admin: 02/14/24 08:32 Dose: 2.5 mg Phenytoin Sodium (Phenytoin Sodium Extended 100 Mg Capsule) 200 mg PO DAILY [facility] Last Admin: 02/14/24 08:31 Dose: 200 mg Phenytoin Sodium (Phenytoin Sodium Extended 100 Mg Capsule) 300 mg PO BEDTIME [facility] Last Admin: 02/13/24 20:45 Dose: 300 mg Sertraline HCl (Sertraline Hcl 50 Mg Tablet) 150 mg PO DAILY [facility] Last Admin: 02/14/24 08:31 Dose: 150 mg Topiramate (Topiramate 100 Mg Tablet) 100 mg PO BID [facility] Last Admin: 02/14/24 08:32 Dose: 100 mg Trazodone HCl (Trazodone Hcl 100 Mg Tablet) 100 mg PO BEDTIME [facility] Last Admin: 02/13/24 20:46 Dose: 100 mg Allergies Allergies Allergy/AdvReac Type Severity Reaction Status Date / Time erythromycin base Allergy Unknown UNKNOWN Verified 01/29/24 20:03 [Erythromycin Base] cyclobenzaprine AdvReac Intermediate Other Verified 01/29/24 20:03 [From Flexeril] Assessment & Plan Assessment & Plan (1) Bipolar disorder: Status: Acute Code(s): F31.9 - Bipolar disorder, unspecified (2) PTSD (post-traumatic stress disorder): Status: Acute Code(s): F43.10 - Post-traumatic stress disorder, unspecified (3) Alcohol dependence: Status: Acute Code(s): F10.20 - Alcohol dependence, uncomplicated (4) COPD (chronic obstructive pulmonary disease): Status: Acute Code(s): J44.9 - Chronic obstructive pulmonary disease, unspecified (5) Epilepsy: Status: Acute Code(s): G40.909 - Epilepsy, unspecified, not intractable, without status epilepticus Plan 43 yo male, history of PTSD, Bipolar Depression, Intractable epilepsy, Alcohol Use Disorder to ER reporting SI with a plan to stab himself. He told crisis he has not been using substances and has been medication compliant. Reports precipitant is an argument with brothers. Reported an increase in AH telling him to suicide. Patient was open to medication management however remained feeling depressed. Patient had epileptic seizure and was transferred to medical floor. Patient returns now to continue psychiatric treatment. Patient says I just since something is wrong with me. On inquiry regarding SI patient said pitchfork... On further inquiry he reports continued suicidal thoughts but I do not want to... Says he has thoughts of using a pitchfork to hurt himself. Discharge summary from medical floor Seizure disorder/epilepsy with breakthrough seizure. transferred to the medical floor, Loaded with 1 g of Dilantin and started dilantin TID IV. patient has had multiple admissions for the same; records from [facility] reviewed has had at least 3 medical admissions there as well due to breakthrough seizures since his last d/c from here in November. meds were changed on each admission. He reports being compliant with meds unclear if patient has been taking meds appropriately as he can't name all the meds he takes for seizures. COntinue on clobazam, lamotrigine, topomax and initially IV dilatin that was changed to po at previous home regimen (dilantin 200 qam and 300 qhs). no seizures in the past 48 hours. Seen by neurology, recommend to continue current medication regimen. No evidence of infection>CXR negative for consolidation or effusion, UA pending, labs within normal limits. no need for repeat EEG as patient know to have longstanding history of epilepsy. Hospital course: 02/11/24: Olanzapine 2.5 mg a.m. Increase Sertraline to 150 mg a.m. 02/11 continue current treatment plan 02/12 Nursing reports that last night patient had a petite mal seizure and was given Ativan 2 mg IM. This morning patient had a witnessed fall; he fell and hit his buttocks (only) on the floor and then immediately stood right back up; no loss of consciousness patient said he was fine... -anxious about continuing breakthrough seizures. Otherwise says mood is better and no SI. Sleeping well, says nicotine patch is helping sleep -continue current treatment plan for now; -reviewed labs and looks like Topamax level has room for increased dosing; contract technical writer asked hospitalist to review Topamax level and see if increase dose is an options; otherwise would consider adding low-dose Ativan scheduled 02/13 Seen by neurology. Klonopin 0.5 mg HS Increase a.m. Olanzapine to 5 mg. Discharge 02/16/24. Plan: CV Q 15 minute checks Olanzapine 2.5 mg a.m. Increased Sertraline to 150 mg a.m. Otherwise Resume psychiatric treatment Continue antiepileptics Reason for continued inpatient stay Substantial Risk for: med/psych decompensation Time Spent With Patient Time: Total time managing care of this patient today ____ minutes.
--- NOTE | 2024-02-14 11:22 | P.CNNE_ITS ---
History of Present Illness Data of Consult Service Date: 02/14/24 Primary Care Provider: Unknown Physician HPI Reason for consult: Intractable epilepsy 43 years old man with chronic intractable epilepsy probably a primary generalized type. He probably also has complex partial seizures. He was recently admitted in hospital with breakthrough seizures and behavioral symptoms. Is present regimen of medicines including Dilantin, lamotrigine, clobazam, and topiramate has provided some relief for seizures. Nursing had noted a ?petite mal? seizure and this consultation was requested. Review of Systems Review of Systems: Feeling okay, with no recent cold or flu-like illness PMFSH Past Medical History Medical History (Updated 02/14/24 @ 11:24 by Breanna Ballard MD) Bipolar disorder Epilepsy COPD (chronic obstructive pulmonary disease) Alcohol dependence Intractable epilepsy Social History Social History Household Members: Other Household Members Other:: brothers and uncle Housing: House Do you presently have visiting nurse or other home services: Yes Alcohol intake: current Alcohol intake frequency: holidays/special occasions only Alcohol type: beer and hard liquor Comment: 1-1 sitter Patient Tobacco Use Status: Current everyday Tobacco user Tobacco use type: Cigarette Cigarette Packs Per Day: 0.5 Cigarettes Per Day: 15 Smoked in Last 30 Days: Yes e-Cigarette/Vaping Use: Never Used Patient Interested in Nicotine Replacement: Yes Patient Given Instructions on How to Stop Smoking: No Second Hand Smoke Exposure: No Use of substances other than those prescribed or required for medical reasons: No Currently Displaying Signs/Symptoms of Drug Intoxication Withdrawal: No Advance Directives: No Advance Directives Information Provided: No Do you have thoughts of harming others: None Do you have a plan to hurt others: No Plan Recently lost weight without trying: No Eating poorly because of decreased appetite: No Nutrition Risks: No Nutritional Risk Poor oral hygiene: Yes service: No Sexual orientation: Straight/Heterosexual Meds Allergies Allergy/AdvReac Type Severity Reaction Status Date / Time erythromycin base Allergy Unknown UNKNOWN Verified 01/29/24 20:03 [Erythromycin Base] cyclobenzaprine AdvReac Intermediate Other Verified 01/29/24 20:03 [From Flexeril] Active Medications: Current Medications Acetaminophen (Acetaminophen 325 Mg Tablet) 650 mg PO Q6H PRN PRN Reason: Pain,Mod(Pain 1-3 or higher) Last Admin: 02/14/24 08:32 Dose: 650 mg Al Hydroxide/Mg Hydroxide (Magnesium Hydrox/Alum Hydrox 30 Ml Oral.Susp) 30 ml PO Q6H PRN PRN Reason: Indigestion Clobazam (Clobazam 10 Mg Tablet) 15 mg PO BEDTIME [facility] Last Admin: 02/13/24 20:46 Dose: 15 mg Hydroxyzine HCl (Hydroxyzine Hcl 25 Mg Tablet) 25 mg PO QID [facility] Last Admin: 02/14/24 08:32 Dose: 25 mg Ibuprofen (Ibuprofen 600 Mg Tablet) 600 mg PO TID [facility] Last Admin: 02/14/24 08:32 Dose: 600 mg Lamotrigine (Lamotrigine 100 Mg Tablet) 300 mg PO BID [facility] Last Admin: 02/14/24 08:31 Dose: 300 mg Melatonin (Melatonin 3 Mg Tablet) 6 mg PO BEDTIME PRN PRN Reason: Insomnia Last Admin: 02/13/24 20:46 Dose: 6 mg Nicotine (Nicotine 14 Mg Patch.Td24) 14 mg TRANSDERMA DAILY PRN PRN Reason: nicotine cravings Last Admin: 02/14/24 08:31 Dose: 14 mg Nicotine Polacrilex (Nicotine Polacrilex 2 Mg Gum) 2 mg BUCCAL Q2H PRN PRN Reason: Nicotine Cravings Olanzapine (Olanzapine 5 Mg Tablet) 5 mg PO BEDTIME [facility] Last Admin: 02/13/24 20:46 Dose: 5 mg Olanzapine (Olanzapine 2.5 Mg Tablet) 2.5 mg PO DAILY [facility] Last Admin: 02/14/24 08:32 Dose: 2.5 mg Phenytoin Sodium (Phenytoin Sodium Extended 100 Mg Capsule) 200 mg PO DAILY [facility] Last Admin: 02/14/24 08:31 Dose: 200 mg Phenytoin Sodium (Phenytoin Sodium Extended 100 Mg Capsule) 300 mg PO BEDTIME [facility] Last Admin: 02/13/24 20:45 Dose: 300 mg Sertraline HCl (Sertraline Hcl 50 Mg Tablet) 150 mg PO DAILY [facility] Last Admin: 02/14/24 08:31 Dose: 150 mg Topiramate (Topiramate 100 Mg Tablet) 100 mg PO BID [facility] Last Admin: 02/14/24 08:32 Dose: 100 mg Trazodone HCl (Trazodone Hcl 100 Mg Tablet) 100 mg PO BEDTIME [facility] Last Admin: 02/13/24 20:46 Dose: 100 mg Home Medications ?Medication ?Instructions ?Recorded ?Confirmed ?Last Taken ?Type melatonin 3 mg tablet 6 mg PO BEDTIME PRN Insomnia 02/03/24 02/03/24 Unknown History Physical Exam Vital Signs: Vital Signs: Last Vital Signs Temp 98.4 F 02/14/24 07:59 Pulse 53 02/14/24 07:59 Resp 15 02/13/24 19:51 BP 110/57 L 02/14/24 07:59 Pulse Ox 98 02/14/24 07:59 O2 Del Method Room Air 02/14/24 07:59 BMI result Body Mass Index 39.0 Neuro: Other: Alert and awake with normal spontaneity of speech fluency comprehension and somewhat flat affect. No obvious focal finding. Assessment and Plan (1) Epilepsy: Qualifiers: Epilepsy type: generalized idiopathic Intractability: intractable Status epilepticus: without status epilepticus Qualified Code(s): G40.319 - Generalized idiopathic epilepsy and epileptic syndromes, intractable, without status epilepticus Status: Acute 43 years old unfortunate man with chronic intractable epilepsy comprised of generalize in sometime complex partial seizures. Over the years he has tried multiple regimen of medications without having full seizure control. Presently he was on combination of medicines. As far as dose of topiramate is concerned, there is not much difference of efficacy between 200 mg versus for 100 mg a day of topiramate for epilepsy. If needed for behavioral reasons especially for anxiety, a medicines like clonazepam 0.5 mg at night can be added. Procedures Date of Service Date of Service: 02/14/24
[2024-02-14 20:00] VITALS: BP 139/73; PULSE 76; RESP 16; TEMP 36.9; O2SAT 97
[2024-02-14] MEDS: cloBAZam 10 MG TABLET 15 MG PO (21:34)
[2024-02-14] MEDS: clonazePAM 0.5 MG TABLET PO (21:35)
[2024-02-14] MEDS: OLANZapine 5 MG TABLET PO (21:35)
[2024-02-14] MEDS: traZODone HCL 100 MG TABLET PO (21:36)
[2024-02-14] MEDS: Phenytoin Sodium Extended 100 MG CAPSULE 300 MG PO (21:37)
[2024-02-14] MEDS: Melatonin 3 MG TABLET 6 MG PO (21:45)
[2024-02-15 08:06] VITALS: BP 119/58; PULSE 59; TEMP 36.6; O2SAT 98
[2024-02-15] MEDS: hydrOXYzine HCL 25 MG TABLET PO ×4 (08:22→20:49)
[2024-02-15] MEDS: Ibuprofen 600 MG TABLET PO ×3 (08:23→20:53)
[2024-02-15] MEDS: Nicotine 14 MG PATCH.TD24 TRANSDERMA (08:23)
[2024-02-15] MEDS: Sertraline HCL 50 MG TABLET 150 MG PO (08:23)
[2024-02-15] MEDS: Topiramate 100 MG TABLET PO ×2 (08:23→20:53)
[2024-02-15] MEDS: Phenytoin Sodium Extended 100 MG CAPSULE 200 MG PO (08:23)
[2024-02-15] MEDS: OLANZapine 5 MG TABLET PO ×2 (08:24→20:51)
[2024-02-15] MEDS: lamoTRIgine 100 MG TABLET 300 MG PO ×2 (08:24→20:51)
[2024-02-15 08:53] LABS: Lamotrigine Lamictal 2.7 mcg/mL (2.5-15.0)
--- NOTE | 2024-02-15 15:34 | P.PNPSI_ITS ---
Subjective Subjective Date of Service: 02/15/24 Reason For Visit: PTSD, bipolar disorder, seizure disorder, alcohol Subjective Notes: Conditional Voluntary Healthcare Proxy: No Guardianship: No Medical Problems Affecting Mental Status: No Interim History: Bright, excited to discharge 02/15. Denies SI/HI/AH/VH. Reports he has been in contact with the family and is excited to be at home, because it is calmer . Tolerating med changes, asks to add a.m. Klonopin, feeling more protected from seizures with this in place. Expressed frustration with his room-mate, however, declines a room change request as I am going home tomorrow, I need to use empathy to try to understand this man. Denies current sx of concern, prepared to go home, and presenting with excitement. Medication Compliance: Yes Side effects from medications: No Attending Groups: Intermittent Review of Systems Acute medical concerns: No Review of Systems Review of Systems denies Mental Status Exam Mental Status Exam Patient Appearance: Appropriate Patient Orientation: Person, Place, Time and Situation Level of Consciousness: Alert Patient Behavior: Appropriate, Talkative, Cooperative and Good Eye Contact Mood Description: Constricted Affect Description: Constricted Patient Cognition Impaired: No Ability to Follow Directions: Good Speech Pattern: Spontaneous Speech Memory Description: Intact Hallucinations: None Delusions: Not Present Thought Process: Intact and Goal Oriented Thought Content: positive for Intact and positive for Goal Oriented Judgement: Good Diagnostics Vital Signs (24Hr): Vital Signs - 24 hr 02/14/24 20:00 02/15/24 08:06 Temperature 98.5 F 97.9 F Pulse Rate 76 59 Respiratory Rate 16 Blood Pressure 139/73 119/58 L Pulse Oximetry 97 98 Oxygen Delivery Method Room Air Room Air BMI result Body Mass Index 39.0 Labs Labs: Laboratory Results - last 48 hr 02/10/24 08:28 Lamotrigine 2.7 Medications Medications Current Medications Acetaminophen (Acetaminophen 325 Mg Tablet) 650 mg PO Q6H PRN PRN Reason: Pain,Mod(Pain 1-3 or higher) Last Admin: 02/14/24 08:32 Dose: 650 mg Al Hydroxide/Mg Hydroxide (Magnesium Hydrox/Alum Hydrox 30 Ml Oral.Susp) 30 ml PO Q6H PRN PRN Reason: Indigestion Clobazam (Clobazam 10 Mg Tablet) 15 mg PO BEDTIME [facility] Last Admin: 02/14/24 21:34 Dose: 15 mg Clonazepam (Clonazepam 0.5 Mg Tablet) 0.5 mg PO BID [facility] Hydroxyzine HCl (Hydroxyzine Hcl 25 Mg Tablet) 25 mg PO QID [facility] Last Admin: 02/15/24 13:10 Dose: 25 mg Ibuprofen (Ibuprofen 600 Mg Tablet) 600 mg PO TID [facility] Last Admin: 02/15/24 13:10 Dose: 600 mg Lamotrigine (Lamotrigine 100 Mg Tablet) 300 mg PO BID [facility] Last Admin: 02/15/24 08:24 Dose: 300 mg Melatonin (Melatonin 3 Mg Tablet) 6 mg PO BEDTIME PRN PRN Reason: Insomnia Last Admin: 02/14/24 21:45 Dose: 6 mg Nicotine (Nicotine 14 Mg Patch.Td24) 14 mg TRANSDERMA DAILY PRN PRN Reason: nicotine cravings Last Admin: 02/15/24 08:23 Dose: 14 mg Nicotine Polacrilex (Nicotine Polacrilex 2 Mg Gum) 2 mg BUCCAL Q2H PRN PRN Reason: Nicotine Cravings Olanzapine (Olanzapine 5 Mg Tablet) 5 mg PO BID [facility] Last Admin: 02/15/24 08:24 Dose: 5 mg Phenytoin Sodium (Phenytoin Sodium Extended 100 Mg Capsule) 200 mg PO DAILY [facility] Last Admin: 02/15/24 08:23 Dose: 200 mg Phenytoin Sodium (Phenytoin Sodium Extended 100 Mg Capsule) 300 mg PO BEDTIME [facility] Last Admin: 02/14/24 21:37 Dose: 300 mg Sertraline HCl (Sertraline Hcl 50 Mg Tablet) 150 mg PO DAILY [facility] Last Admin: 02/15/24 08:23 Dose: 150 mg Topiramate (Topiramate 100 Mg Tablet) 100 mg PO BID [facility] Last Admin: 02/15/24 08:23 Dose: 100 mg Trazodone HCl (Trazodone Hcl 100 Mg Tablet) 100 mg PO BEDTIME [facility] Last Admin: 02/14/24 21:36 Dose: 100 mg Allergies Allergies Allergy/AdvReac Type Severity Reaction Status Date / Time erythromycin base Allergy Unknown UNKNOWN Verified 01/29/24 20:03 [Erythromycin Base] cyclobenzaprine AdvReac Intermediate Other Verified 01/29/24 20:03 [From Flexeril] Assessment & Plan Assessment & Plan (1) Bipolar disorder: Status: Acute Code(s): F31.9 - Bipolar disorder, unspecified (2) PTSD (post-traumatic stress disorder): Status: Acute Code(s): F43.10 - Post-traumatic stress disorder, unspecified (3) Alcohol dependence: Status: Acute Code(s): F10.20 - Alcohol dependence, uncomplicated Plan 02/14: Discharge 02/15. Reason for continued inpatient stay Substantial Risk for: stable for discharge Time Spent With Patient Time: Total time managing care of this patient today ____ minutes.
[2024-02-15 20:00] VITALS: BP 139/65; PULSE 78; RESP 16; TEMP 36.4; O2SAT 99
[2024-02-15] MEDS: cloBAZam 10 MG TABLET 15 MG PO (20:48)
[2024-02-15] MEDS: clonazePAM 0.5 MG TABLET PO (20:50)
[2024-02-15] MEDS: Phenytoin Sodium Extended 100 MG CAPSULE 300 MG PO (20:51)
[2024-02-15] MEDS: Melatonin 3 MG TABLET 6 MG PO (20:53)
[2024-02-15] MEDS: traZODone HCL 100 MG TABLET PO (20:54)
[2024-02-16 08:00] VITALS: BP 109/53; PULSE 58; RESP 16; TEMP 36.8; O2SAT 97
[2024-02-16] MEDS: lamoTRIgine 100 MG TABLET 300 MG PO (08:09)
[2024-02-16] MEDS: Sertraline HCL 50 MG TABLET 150 MG PO (08:09)
[2024-02-16] MEDS: hydrOXYzine HCL 25 MG TABLET PO (08:09)
[2024-02-16] MEDS: Phenytoin Sodium Extended 100 MG CAPSULE 200 MG PO (08:09)
[2024-02-16] MEDS: Topiramate 100 MG TABLET PO (08:09)
[2024-02-16] MEDS: clonazePAM 0.5 MG TABLET PO (08:09)
[2024-02-16] MEDS: Ibuprofen 600 MG TABLET PO (08:09)
[2024-02-16] MEDS: OLANZapine 5 MG TABLET PO (08:09)
[2024-02-16] MEDS: Nicotine 14 MG PATCH.TD24 TRANSDERMA (08:16)
--- NOTE | 2024-02-16 11:08 | P.DS_ITS ---
DS: Providers Provider Date of admission: 02/07/24 13:16 Primary care physician: Unknown Physician Consults: 02/13/24 16:11 Consult to Neurology Routine Consulting Provider: [facility] Reason for consultation: Topamax level back. Increase dose? Still breakthrough seizures DS: Diagnosis Discharge Diagnosis (1) Bipolar disorder: Status: Acute (2) PTSD (post-traumatic stress disorder): Status: Acute (3) Alcohol dependence: Status: Acute DS: Medications Discharge Medications Home Medications: Previous Rx's ?Medication ?Instructions ?Recorded acetaminophen 325 mg tablet 650 mg (2 x 325 mg) PO Q6H PRN 02/03/24 Headache/Pain Mild Scale (1-3) #0 tabs aluminum-magnesium hydroxide 200 30 ml PO Q6H PRN Heartburn/Nausea 02/03/24 mg-200 mg/5 mL oral suspension #0 mL (MAG-AL) clobazam 10 mg tablet 15 mg (1.5 x 10 mg) PO BEDTIME #0 02/03/24 tabs magnesium hydroxide 400 mg/5 mL 30 ml PO DAILY PRN Constipation #0 02/03/24 oral suspension (Milk of Magnesia) mL nicotine (polacrilex) 2 mg gum 2 mg buccal Q2H PRN Nicotine 02/03/24 Cravings #0 ea Clobazam 15 mg PO BEDTIME #30 tabs 02/15/24 clonazepam 0.5 mg tablet 0.5 mg PO BID #60 tabs 02/15/24 hydroxyzine HCl 25 mg tablet 25 mg PO QID #120 tabs 02/15/24 ibuprofen 600 mg tablet 600 mg PO TID PRN pain #90 tabs 02/15/24 ipratropium 0.5 mg-albuterol 3 mg 3 ml inhalation Q6H PRN wheezing 02/15/24 (2.5 mg base)/3 mL nebulization #90 mL soln lamotrigine 100 mg tablet 300 mg (3 x 100 mg) PO BID #180 02/15/24 tabs melatonin 3 mg tablet 6 mg (2 x 3 mg) PO BEDTIME PRN 02/15/24 Insomnia #60 tabs nicotine 14 mg/24 hr daily 14 mg transdermal DAILY PRN 02/15/24 transdermal patch nicotine cravings #30 ea olanzapine 5 mg tablet 5 mg PO BID #60 tabs 02/15/24 phenytoin sodium extended 100 mg 200 mg (2 x 100 mg) PO DAILY #60 02/15/24 capsule (Dilantin Extended) caps phenytoin sodium extended 100 mg 300 mg (3 x 100 mg) PO BEDTIME #90 02/15/24 capsule (Dilantin Extended) caps sertraline 50 mg tablet 150 mg (3 x 50 mg) PO DAILY #90 02/15/24 tabs topiramate 100 mg tablet 100 mg PO BID #60 tabs 02/15/24 trazodone 100 mg tablet 100 mg PO BEDTIME #30 tabs 02/15/24 Data Data Completed and Pending Completed studies during hospitalization [Text1]: 02/10/24 02/12/24 08:28 20:34 POC Glucose 124 H Phenytoin 16.1 Lamotrigine 2.7 Topiramate 2.3 DS: Summary Time Spent with Patient Time attestation: Total time managing care of this patient today ____ minutes. Discharge Plan Discharge Anticipated Discharge Date/Time: 02/16/24 12:00 Patient Disposition: Home, Self-Care Discharge Diagnosis: PTSD Bipolar Disorder Alcohol Use Disorder Epilepsy COPD Referrals: [facility] Neurology Sleep Study [Other] - 03/19/24 6:45 pm (This will be an overnight appt with a morning leaf size picker at 6am. ) [facility] Neurology Sleep Provider Ursula MACKEY [Other] - 04/03/24 8:30 am [facility] Neurology with Héctor Chiang [Other] - 05/05/24 3:30 pm Manuel Kohler Visiting RN [Other] - 1 Week (Visiting RN will come to see you on Wednesday02/16/24 ) Physician,Unknown J [Primary Care Provider] - 1 Week Discharge Medications: New nicotine 14 mg/24 hr Patch 24 Hour 14 mg transdermal DAILY PRN (Reason: nicotine cravings) Qty: 30 0RF clonazepam 0.5 mg Tablet 0.5 mg PO BID Qty: 60 0RF olanzapine 5 mg Tablet 5 mg PO BID Qty: 60 0RF ibuprofen 600 mg Tablet 600 mg PO TID PRN (Reason: pain) Qty: 90 0RF topiramate 100 mg Tablet 100 mg PO BID Qty: 60 0RF sertraline 50 mg Tablet 150 mg PO DAILY Qty: 90 0RF lamotrigine 100 mg Tablet 300 mg PO BID Qty: 180 0RF Clobazam 15 mg PO BEDTIME Qty: 30 0RF Continued acetaminophen 325 mg Tablet 650 mg PO Q6H PRN (Reason: Headache/Pain Mild Scale (1-3)) Qty: 0 0RF nicotine (polacrilex) 2 mg Gum 2 mg buccal Q2H PRN (Reason: Nicotine Cravings) Qty: 0 0RF magnesium hydroxide [Milk of Magnesia] 400 mg/5 mL Suspension 30 ml PO DAILY PRN (Reason: Constipation) Qty: 0 0RF MAG-AL 200-200 mg/5 mL Suspension 30 ml PO Q6H PRN (Reason: Heartburn/Nausea) Qty: 0 0RF clobazam 10 mg Tablet 15 mg PO BEDTIME Qty: 0 0RF ipratropium-albuterol 0.5 mg-3 mg(2.5 mg base)/3 mL Solution For Nebulization 3 ml inhalation Q6H PRN (Reason: wheezing) Qty: 90 0RF phenytoin sodium extended [Dilantin Extended] 100 mg Capsule 300 mg PO BEDTIME Qty: 90 0RF phenytoin sodium extended [Dilantin Extended] 100 mg Capsule 200 mg PO DAILY Qty: 60 0RF melatonin 3 mg Tablet 6 mg PO BEDTIME PRN (Reason: Insomnia) Qty: 60 0RF trazodone 100 mg Tablet 100 mg PO BEDTIME Qty: 30 0RF hydroxyzine HCl 25 mg Tablet 25 mg PO QID Qty: 120 0RF Discontinued nicotine 14 mg/24 hr Patch 24 Hour 14 mg transdermal DAILY Qty: 0 0RF sertraline 100 mg Tablet 100 mg PO DAILY Qty: 0 0RF olanzapine 5 mg Tablet 5 mg PO BEDTIME Qty: 0 0RF hydroxyzine HCl 25 mg Tablet 25 mg PO Q6H PRN (Reason: Anxiety) Qty: 0 0RF topiramate 100 mg Tablet 100 mg PO BID Qty: 0 0RF lamotrigine 100 mg Tablet 300 mg PO BID Qty: 0 0RF Discharge Orders: Discharge Order (Routine); Ordered 02/16/24 Ordered By: Isabel Andrews Diet: Advance to usual diet Activity on Discharge: As tolerated Stand Alone Forms: Patient Portal Discharge page, Community Support Print Language: Turkish Care Plan Goals: Mood and Behavioral Stabilization Health Concerns: Mood and Behavioral Stabilization Plan of Treatment: Attend scheduled appointments Take medications as directed Assessment: Attend scheduled appointments Take medications as directed
== END 2024-02-16 11:51 | disposition home or self-care (01) | DRG 753 ==
PROVIDERS: Admitting Provider Clinical Nurse Specialist Psychiatric/Mental Health, Adult; Visit Provider Clinical Nurse Specialist Psychiatric/Mental Health, Adult
DX: F31.9 Bipolar disorder, unspecified (principal); G40.919 Epilepsy, unspecified, intractable, without status epilepticus; R45.851 Suicidal ideations; F17.210 Nicotine dependence, cigarettes, uncomplicated; Z71.6 Tobacco abuse counseling; F10.20 Alcohol dependence, uncomplicated; J44.9 Chronic obstructive pulmonary disease, unspecified; F43.10 Post-traumatic stress disorder, unspecified; Z79.899 Other long term (current) drug therapy
CPT/HCPCS: 36415; 80175; 80185; 80201; 82947; 90656; J2060

== ENCOUNTER → 2024-02-07 13:16 | Outpatient (BNV) | payer MEDICAID, SELFPAY | PROVIDERS: Admitting Provider Clinical Nurse Specialist Psychiatric/Mental Health, Adult; Visit Provider Psychiatry & Neurology Neurology | DX: G40.319 Generalized idiopathic epilepsy and epileptic syndromes, intractable, without status epilepticus (principal) | CPT/HCPCS: 99222 ==

== ENCOUNTER → 2024-02-07 13:16 | Outpatient (BNV) | payer OTHER, SELFPAY | PROVIDERS: Admitting Provider Clinical Nurse Specialist Psychiatric/Mental Health, Adult; Visit Provider Psychiatry & Neurology Psychiatry | DX: F31.4 Bipolar disorder, current episode depressed, severe, without psychotic features (principal); F10.20 Alcohol dependence, uncomplicated; F43.11 Post-traumatic stress disorder, acute; J44.9 Chronic obstructive pulmonary disease, unspecified; G40.319 Generalized idiopathic epilepsy and epileptic syndromes, intractable, without status epilepticus | CPT/HCPCS: 99231; 99232 ==